=== PATIENT | male | born 1930 | race Caucasian/White ===

== ENCOUNTER 2018-01-13 14:32 | Inpatient (IN) ==
[2018-01-13] MEDS ORDERED: SALINE FLUSH 10ml SYRINGE IVF PRN (15:08)
[2018-01-13] MEDS ORDERED: NS 1,000 ML IV ONE (15:08)
--- OUTSIDE RECORDS SUMMARY | 2018-01-13 15:13 | External Medical Summary | Continuity of Care Document ---
:1930 Author Organization [facility] Allergies Active Description Code Type Severity Reaction Onset Reported/ Identified Relationship Clinical to Patient Status Yes JANE JANE Drug Severe ANGIOEDEM 05/01/2012 Inhibitors Inhib Aller IA itors gy (FAINTING /SWELLING ) Yes simvastatin simva Drug Moderate MUSCLE 09/10/2013 stati Aller WEAKNESS n gy Yes No Known Drug Unknown N/A 11/19/2014 Drug Allergy Aller gy Yes No Known Drug Unknown N/A 11/19/2014 Drug Aller Category gy Allergy Yes No Known Envir Unknown N/A 11/19/2014 Environment onmen Allergy radha Aller gy Yes No Known Food Unknown N/A 11/19/2014 Food Allergy Aller gy Yes JANE benaz Aller Unknown AIRWAY 06/30/2016 Inhibitors epril gy SWELLING HCl Yes No Known No Drug Unknown N/A 03/01/2017 Allergies Known Aller Aller gy gies Yes benazepril Aller Unknown Airway 01/13/2018 gy Obstructi on Medications Medication Packaging Start Date Stop Date Route Dosage Sig Vitamin Tablet 11/19/2014 500 mg C 500 mg tablet take 1 (one) Tablet by Oral route daily Vitamin 11/19/2014 1,000 unit D3 1,000 unit 1 (one) by capsule Oral route daily aspirin 11/19/2014 81 mg 81 mg take 1 tablet,delayed (one) by release Oral route daily Tablet 11/19/2014 100 mg atenolol 100 mg take 1 tablet (one) Tablet by Oral route daily Systane 11/19/2014 0.6 % Balance 0.6 % eye 1 (one) drops daily Refresh 11/19/2014 0.5 % Plus 0.5 % eye 1 (one) drops in a daily dropperette Aspir 06/30/2016 PO 81 mg 81 DAILY 06/30/2016 PO 1 each Caltrate 600 Plus DAILY D3 Tablet Vitamin 02/05/2017 PO 500 mg C DAILY Ultram 02/05/2017 PO 50 mg Q6H 02/05/2017 PO 500 mg Acetaminophen Extra Q6H Strength Vitamin 02/05/2017 PO 1,000 unit D3 DAILY 02/05/2017 PO 500 mg Amoxicillin TID 04/26/2017 PO 50 mcg Synthroid DAILY 06/07/2017 PO 25 mg Tenormin BID Duoneb 06/21/2017 INH 3 ml Q8H 07/25/2017 PO 50 mcg Synthroid DAILY 10/27/2017 PO 50 mcg Synthroid DAILY 11/03/2017 PO 1 each One-A-Day Essential DAILY Adult 01/12/2018 PO 81 mg Aspirin DAILY 01/12/2018 PO 25 mg Tenormin BID Vitamin 01/12/2018 PO 5,000 unit D3 DAILY 01/12/2018 PO 50 mcg Levothyroxine ACB Sodium Tylenol 01/13/2018 PO 325 mg PRN Problems Date Dx Attending Type Code Diagnosis Diagnosed By Coded 05/04/2016 LUIS DIAZ, FORTINO 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, bilateral 05/04/2016 FORTINO SMITH MD J38.4 Edema of larynx Richmond SMITH MD FORTINO C 02/05/2017 Marcel DIAZ, F A41.9 SEPSIS, UNSPECIFIED Janice M ORGANISM 02/05/2017 Marcel DIAZ, F D72.829 ELEVATED WHITE BLOOD Janice M CELL COUNT, UNSPECIFIED 02/05/2017 Marcel DIAZ, F E78.5 HYPERLIPIDEMIA, Janice M UNSPECIFIED 02/05/2017 Marcel DIAZ, F E80.6 OTHER DISORDERS OF Janice M BILIRUBIN METABOLISM 02/05/2017 Marcel DIAZ, F I10 ESSENTIAL (PRIMARY) Janice M HYPERTENSION 02/05/2017 Marcel DIAZ, F 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 02/05/2017 Marcel DIAZ, F I48.91 UNSPECIFIED ATRIAL Janice M FIBRILLATION 02/05/2017 Marcel DIAZ, F K81.0 ACUTE CHOLECYSTITIS Janice M 02/05/2017 Marcel DIAZ, F L21.9 SEBORRHEIC Janice M DERMATITIS, UNSPECIFIED 02/05/2017 Marcel DIAZ, F L57.0 ACTINIC KERATOSIS Janice M 02/05/2017 Marcel DIAZ, F M81.0 AGE-RELATED Janice M OSTEOPOROSIS W/O CURRENT PATHOLOGICAL 02/05/2017 Marcel DIAZ, F 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, UNSPECIFIED 02/05/2017 Marcel DIAZ, A R55 SYNCOPE AND COLLAPSE Janice M 02/05/2017 Marcel DIAZ, F R65.21 SEVERE SEPSIS WITH Janice M SEPTIC SHOCK 02/05/2017 Marcel DIAZ, F R74.0 NONSPEC ELEV OF Janice Villafuerte LEVELS OF TRANSAMNS LACTIC ACID 02/05/2017 Marcel IDAZ, F Z79.82 FPC (CURRENT) Janice Villafuerte USE OF ASPIRIN 02/05/2017 Marcel DIAZ, F 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 04/07/2017 DIEGO MCGRAW MD E78.00 Pure MARILUZ DIAZ, DIEGO An hypercholesterolemia , unspecified 04/07/2017 DIEGO MCGRAW MD E78.5 Hyperlipidemia, MARILUZ DIAZ, DIEGO An unspecified 04/07/2017 DIEGO MCGRAW MD E87.5 Hyperkalemia DIEGO MCGRAW MD 04/07/2017 DIEGO MCGRAW MD G20 Parkinson's disease DIEGO MCGRAW MD 04/07/2017 DIEGO MCGRAW MD I10 Essential (primary) DIEGO MCGRAW MD hypertension 04/07/2017 DIEGO MCGRAW MD L57.0 Actinic keratosis DIEGO MCGRAW MD 04/07/2017 DIEGO MCGRAW MD R79.89 Other specified DIEGO MCGRAW MD abnormal findings of blood chemistry 04/07/2017 DIEGO MCGRAW MD R94.6 Abnormal results of DIEGO MCGRAW MD thyroid function studies 04/07/2017 DIEGO MCGRAW MD Z00.00 Encounter for DIEGO MCGRAW MD general adult medical examination without abnormal findings 04/07/2017 DIEGO MCGRAW MD Z23 Encounter for DIEGO MCGRAW MD immunization 06/20/2017 SELINA LOZOYA J18.9 Pneumonia, SELINA LOZOYA CORE MANAGER unspecified organism A CORE MANAGER 06/20/2017 SELINA LOZOYA R09.02 Hypoxemia SELINA LOZOYA CORE MANAGER A CORE MANAGER Procedures Code [place] [address] LaryngoscopyLUIS MD, ERIC C 06/16/2016 flexible fiberoptic; diagnostic 05864 TYMPANOSTOMY FORTINO SMITH MD 06/16/2016 (REQUIRING INSERTION, VENTILATING TUBE), LOCAL/TOPICAL ANESTHESIA 28815 Office or FORTINO SMITH MD 06/16/2016 other outpatient visit for the evaluation and management of an established patient, which DRAINAGE OF Filipe Silveira MD 02/05/2017 [id number] GALLBLADDER WITH DRAINAGE DEVICE, PERC DRAINAGE OF Filipe Silveira MD 02/05/2017 [id number] COM BILE DUCT WITH DRAIN DEV, PERC END <section xmlns="urn:hl7-org:v3" xmlns:xsi="http://www.eTipping3.org/ 2001/XMLSchema-instance"> <templateId root=" [id number]" /> <templateId root=" [id number]" /> <code codeSystemName=" LOINC" codeSystem="[email or web address]" code="99234-5&quot ; displayName="Results" /> <title>Results</title> &lt ;text> <table> <thead> <tr> <th& gt;Test</th> <th>Result</th> <th>Range </th> </tr> </thead> <tbody> &lt ;tr> <th colspan="10">ARTERIAL BLOOD GAS - 05/01/12 09:37</th> </tr> <tr> <td>ABG BASE EXCESS</td> <td>0.4 meq/L</td> <td>-3.0- 3.0</td> </tr> <tr> <td>ABG BICARBONATE</td> <td>23.4 meq/L</td> <td& gt;23.0-28.0</td> </tr> <tr> <td> ABG PCO2</td> <td>33 mm Hg</td> <td>34 -45</td> </tr> <tr> <td>ABG PH&lt ;/td> <td>7.47 </td> <td>7.35-7.45</td > </tr> <tr> <td>ABG PO2</td> <td>96 mm Hg</td> <td>75-100</td> & lt;/tr> <tr> <td>ABG O2 SATURATION</td> <td>97 %</td> <td>93-100</td> </tr> <tr> <th colspan="10"> ARTERIAL BLOOD GAS - 05/01/12 09:37</th> </tr> <tr& gt; <td>ABG BASE EXCESS</td> <td>0.4 meq/L& lt;/td> <td>-3.0-3.0</td> </tr> <tr> <td>ABG BICARBONATE</td> <td>23.4meq/L</ td> <td>23.0-28.0</td> </tr> <tr& gt; <td>ABG PCO2</td> <td>33 mm Hg</td> <td>34-45</td> </tr> <tr> &lt ;td>ABG PH</td> <td>7.47 </td> <td> 7.35-7.45</td> </tr> <tr><td>ABG PO2</ td> <td>96 mm Hg</td> <td>75-100</td& gt; </tr> <tr> <td>ABG O2 SATURATION&lt ;/td> <td>97 %</td> <td>93-100&lt ;/td> </tr> <tr> <th colspan="10& quot;>PROTHROMBIN TIME WITH INR - 05/01/12 09:43</th> </tr> <tr> <td>INTERNATIONAL NORMAL RATIO</td> < td>1.1 </td> <td>0.9-1.1</td> </tr> <tr> <td>PROTHROMBIN TIME</td> <td >11.4 sec</td> <td>9.3-12.2</td> </tr&gt ; <tr> <th colspan="10">PARTIAL THROMBOPLASTIN TIME - 05/01/12 09:43</th> </tr> <tr > <td>PARTIAL THROMBOPLASTIN TIME</td> <td>30 sec</td> <td>24-36</td> </tr> &lt ;tr> <th colspan="10">FIBRINOGEN - 05/01/12 09:43&lt ;/th> </tr> <tr> <td>FIBRINOGEN</ td> <td>302 mg/dL</td> <td>200-400</td > </tr> <tr> <th colspan="10"> CBC W/DIFF - 05/01/12 09:43</th> </tr> <tr> <td>BASOPHIL #</td> <td>0.0 k/cumm</td> <td>0.0-0.2</td> </tr> <tr> <td>BASOPHIL %</td> <td>1 %</ td> <td>0-1</td> </tr> <tr> <td>EOSINOPHIL #</td> <td>0.1 k/cumm</td> <td>0.1-0.5</td> </tr> <tr> <td>EOSINOPHIL %</td> <td>2 %</ td> <td>2-4</td> </tr> <tr> <td>GRANULOCYTE #</td> <td>3.3 k/cumm</td& gt; <td>2.0-9.0</td> </tr> <tr> <td>GRANULOCYTE %</td> <td>66 %&lt ;/td> <td>50-75</td> </tr> <tr&gt ; <td>LYMPHOCYTE #</td> <td>1.1 k/cumm</ td> <td>1.0-4.0</td> </tr> <tr> <td>LYMPHOCYTE %</td> <td>22 %&lt ;/td> <td>20-30</td> </tr> <tr> <td>MEAN CELL HGB</td> <td>34.0pg</td> <td>27.0-33.0</td> </tr> <tr> <td>MEAN CELL HGB CONCENTRATION</td> <td>34.9 g/dl</td> <td>32.0-36.0</td> </tr> <tr> <td>MEAN CELL VOLUME</td> <td> 97.4 fl</td> <td>80.0-100.0</td> </tr> <tr> <td>MONOCYTE #</td> <td> 0.5 k/cumm</td> <td>0.1-1.0</td> </tr> <tr> <td>MONOCYTE %</td> < td>10 %</td> <td>4-6</td> </tr& gt; <tr> <td>RED BLOOD CELL</td> < td>4.02 m/cumm</td> <td>4.00-6.00</td> < /tr> <tr> <td>RED CELL DISTRIBUTION WIDTH</td& gt; <td>13.1 %</td> <td>11.0-15.6&lt ;/td> </tr> <tr> <td>WHITE BLOOD CELL</td> <td>5.1 k/cumm</td> <td>5.0- 10.0</td> </tr> <tr> <td> HEMOGLOBIN</td> <td>13.7 gm/dL</td> <td& gt;14.0-18.0</td> </tr> <tr> <td> HEMATOCRIT</td> <td>39.2 %</td> < td>40.0-54.0</td> </tr> <tr> <td& gt;PLATELET COUNT</td> <td>194 k/cumm</td> & lt;td>150-450</td> </tr> <tr> < th colspan="10">METABOLIC PANEL, BASIC - 05/01/12 09:43</th> </tr> <tr> <td>POTASSIUM</td>&lt ;td>4.1 mmol/L</td> <td>3.5-5.3</td> </ tr> <tr> <td>EST GFR (MDRD)</td> & lt;td>> 60 mL/min</td> <td>> 59</td> </tr> <tr> <td>ANION GAP</td> <td>6 mmol/L</td> <td>5-15</td> & lt;/tr> <tr> <td>GLUCOSE</td> < td>95 mg/dL</td> <td>70-99</td> </tr&gt ; <tr> <td>CALCIUM</td> <td> 8.7 mg/dL</td> <td>8.5-10.1</td> </tr> <tr> <td>BLOOD UREA NITROGEN</td> &lt ;td>17 mg/dL</td> <td>7-20</td> </tr&gt ; <tr> <td>CREATININE</td> <td> 0.8 mg/dL</td> <td>0.8-1.3</td> </tr> <tr> <td>SODIUM</td> <td>131 mmol/L</td> <td>135-148</td> </tr> <tr> <td>CHLORIDE</td> <td>97 mmol/L</td > <td>98-110</td> </tr> <tr> <td>CARBON DIOXIDE</td> <td>28 mmol/L</td > <td>21-32</td> </tr> <tr> <th colspan="10">LIPID PANEL - 05/01/12 09:43</th&gt ; </tr> <tr> <td>CHOLESTEROL/HDL RATIO& lt;/td> <td>2.0 </td> <td> < 5.0& lt;/td> </tr> <tr> <td>LDL CHOLESTEROL</td> <td>59 mg/dL</td> <td&gt ;< 100</td> </tr> <tr> <td&gt ;VLDL CHOLESTEROL</td> <td>9 mg/dL</td> <td> < 30</td> </tr><tr> <td> TRIGLYCERIDES</td> <td>44 mg/dL</td> <td>& lt; 150</td> </tr> <tr> <td> CHOLESTEROL</td> <td>139 mg/dL</td> <td& gt;< 200</td> </tr> <tr> <td> HDL CHOLESTEROL</td> <td>71mg/dL</td> <td >> 39</td> </tr> <tr> <th colspan="10">HEMOGLOBIN A1C - 05/01/12 09:43</th> < /tr> <tr> <td>HEMOGLOBIN A1C</td> &lt ;td>5.9 %</td> <td>< 5.7</td> </tr> <tr> <th colspan="10">MRSA SURVEILLANCE SCREEN - 05/01/12 09:43</th> </tr> <tr> <td>Uncategorized</td> <td> </td> <td /> </tr> <tr> <th colspan ="10">PROTHROMBIN TIME WITH INR - 05/01/12 09:43</th> </tr> <tr> <td>INTERNATIONAL NORMAL RATIO</ td> <td>1.1 </td> <td>0.9-1.1</td> </tr> <tr> <td>PROTHROMBIN TIME</td ><td>11.4 sec</td> <td>9.3-12.2</td> </tr> <tr> <th colspan="10">PARTIAL THROMBOPLASTIN TIME - 05/01/12 09:43</th> </tr> <tr > <td>PARTIAL THROMBOPLASTIN TIME</td> <td>30 sec</td> <td>24-36</td> </tr> &lt ;tr> <th colspan="10">FIBRINOGEN - 05/01/12 09:43&lt ;/th> </tr> <tr> <td>FIBRINOGEN</ td> <td>302 mg/dL</td> <td>200-400</td > </tr> <tr> <th colspan="10" >CBC W/DIFF - 05/01/12 09:43</th> </tr> <tr> <td>BASOPHIL #</td> <td>0.0 k/cumm</td> <td>0.0-0.2</td> </tr> <tr> <td>BASOPHIL %</td> <td>1 %</td> <td>0-1</td> </tr> <tr> & lt;td>EOSINOPHIL #</td> <td>0.1 k/cumm</td> <td >0.1-0.5</td> </tr> <tr> <td> EOSINOPHIL %</td> <td>2 %</td> <td>2-4</td> </tr> <tr> < td>GRANULOCYTE #</td> <td>3.3 k/cumm</td> <td>2.0-9.0</td> </tr> <tr> &lt ;td>GRANULOCYTE %</td> <td>66 %</td& gt; <td>50-75</td> </tr> <tr> <td>LYMPHOCYTE #</td> <td>1.1 k/cumm</td> <td>1.0-4.0</td> </tr><tr> <td >LYMPHOCYTE %</td> <td>22 %</td> <td>20-30</td> </tr> <tr> <td>MEANCELL HGB</td> <td>34.0 pg</td> <td>27.0-33.0</td> </tr> <tr> & lt;td>MEAN CELL HGB CONCENTRATION</td><td>34.9 g/dl</td> <td>32.0-36.0</td> </tr> <tr> <td>MEAN CELL VOLUME</td> <td>97.4 fl</td&gt ;<td>80.0-100.0</td> </tr> <tr> & lt;td>MONOCYTE #</td> <td>0.5 k/cumm</td> <td>0.1-1.0</td> </tr> <tr> &lt ;td>MONOCYTE %</td> <td>10 %</td> <td>4-6</td> </tr> <tr> <td>RED BLOOD CELL</td> <td>4.02 m/cumm</td> <td>4.00-6.00</td> </tr> <tr> <td>RED CELL DISTRIBUTION WIDTH</td> <td> 13.1 %</td> <td>11.0-15.6</td> </tr > <tr> <td>WHITE BLOOD CELL</td> & lt;td>5.1 k/cumm</td> <td>5.0-10.0</td> &lt ;/tr> <tr> <td>HEMOGLOBIN</td> &lt ;td>13.7 gm/dL</td> <td>14.0-18.0</td> < /tr> <tr> <td>HEMATOCRIT</td> < td>39.2 %</td> <td>40.0-54.0</td> & lt;/tr> <tr> <td>PLATELET COUNT</td> <td>194 k/cumm</td> <td>150-450</td> </tr& gt; <tr> <th colspan="10">METABOLIC PANEL , BASIC - 05/01/12 09:43</th> </tr> <tr> < td>POTASSIUM</td> <td>4.1 mmol/L</td> &lt ;td>3.5-5.3</td> </tr> <tr> <td& gt;EST GFR (MDRD)</td> <td>> 60 mL/min</td> <td>> 59</td> </tr> <tr> & lt;td>ANION GAP</td> <td>6 mmol/L</td> < td>5-15</td> </tr> <tr> <td> GLUCOSE</td> <td>95 mg/dL</td> <td>70- 99</td> </tr> <tr> <td>CALCIUM&lt ;/td> <td>8.7 mg/dL</td> <td>8.5-10.1</td& gt; </tr> <tr> <td>BLOOD UREA NITROGEN& lt;/td> <td>17 mg/dL</td> <td>7-20</td > </tr> <tr> <td>CREATININE</td> <td>0.8 mg/dL</td> <td>0.8-1.3</td> </tr> <tr> <td>SODIUM</td> & lt;td>131 mmol/L</td> <td>135-148</td> </ tr> <tr> <td>CHLORIDE</td> <td& gt;97 mmol/L</td> <td>98-110</td> </tr> <tr> <td>CARBON DIOXIDE</td> <td& gt;28 mmol/L</td> <td>21-32</td> </tr> <tr> <th colspan="10">LIPID PANEL - 09:43</th> </tr> <tr> <td> CHOLESTEROL/HDL RATIO</td> <td>2.0 </td> &lt ;td> < 5.0</td> </tr> <tr> & lt;td>LDL CHOLESTEROL</td> <td>59 mg/dL</td> <td>< 100</td> </tr> <tr> < td>VLDL CHOLESTEROL</td> <td>9 mg/dL</td> <td>< 30</td> </tr> <tr> <td>TRIGLYCERIDES</td> <td>44 mg/dL</td> <td>< 150</td> </tr> <tr> <td>CHOLESTEROL</td> <td>139 mg/dL</td> & lt;td>< 200</td> </tr> <tr> & lt;td>HDL CHOLESTEROL</td> <td>71 mg/dL</td> <td>> 39</td> </tr> <tr> <th colspan="10">HEMOGLOBIN A1C - 05/01/12 09:43</th&gt ; </tr> <tr> <td>HEMOGLOBIN A1C</td& gt; <td>5.9 %</td> <td>< 5.7& lt;/td> </tr> <tr> <th colspan="10 ">MRSA SURVEILLANCE SCREEN - 05/01/12 09:43</th> </tr&gt ; <tr> <td>Uncategorized</td> <td& gt; </td> <td /> </tr> <tr>< th colspan="10">URINALYSIS, ROUTINE - 05/01/12 10:05</th> </tr> <tr> <td>UA LEUKOCYTE ESTERASE DIPSTICK</td> <td>NEGATIVE </td> <td> NEGATIVE</td> </tr> <tr> <td>UA NITRITE DIPSTICK</td> <td>NEGATIVE </td> <td> NEGATIVE</td> </tr> <tr> <td>UA PROTEIN DIPSTICK</td> <td>NEGATIVE </td> &lt ;td>NEGATIVE</td> </tr> <tr> <td& gt;UA GLUCOSE DIPSTICK</td> <td>NEGATIVE </td> <td>NEGATIVE</td> </tr> <tr> <td>UA KETONE DIPSTICK</td> <td>NEGATIVE </td> <td>NEGATIVE</td> </tr> <tr> <td>UA UROBILINOGEN DIPSTICK</td> <td>NORMAL & lt;/td> <td>NORMAL</td> </tr> <tr> <td>UA BILIRUBIN DIPSTICK</td> <td> NEGATIVE </td> <td>NEGATIVE</td> </tr> <tr> <td>UA BLOOD DIPSTICK</td> < td>NEGATIVE </td> <td>NEGATIVE</td> </tr > <tr> <td>UA VOLUME FOR EXAM</td><td&gt ;12.0 mL</td> <td>(12mL STD)</td> </tr> <tr> <td>UA SPECIFIC GRAVITY</td> & lt;td>1.014 </td> <td>1.015-1.025</td> </tr> <tr> <td>UR PH</td> <td>7.0 &lt ;/td> <td>5.0-7.0</td> </tr> <tr> <th colspan="10">URINALYSIS, ROUTINE - 05/01/12 10:05& lt;/th> </tr> <tr> <td>UA LEUKOCYTE ESTERASE DIPSTICK</td> <td>NEGATIVE </td> & lt;td>NEGATIVE</td> </tr> <tr> <td& gt;UA NITRITE DIPSTICK</td> <td>NEGATIVE </td> <td>NEGATIVE</td> </tr> <tr> <td>UA PROTEIN DIPSTICK</td> <td>NEGATIVE </td&gt ; <td>NEGATIVE</td> </tr> <tr> <td>UA GLUCOSE DIPSTICK</td> <td>NEGATIVE </td&gt ; <td>NEGATIVE</td> </tr> <tr> <td>UA KETONE DIPSTICK</td> <td>NEGATIVE < /td> <td>NEGATIVE</td> </tr> <tr> <td>UA UROBILINOGEN DIPSTICK</td> <td> NORMAL </td> <td>NORMAL</td> </tr> <tr> <td>UA BILIRUBIN DIPSTICK</td> < td>NEGATIVE </td> <td>NEGATIVE</td> </tr > <tr> <td>UA BLOOD DIPSTICK</td> <td>NEGATIVE </td><td>NEGATIVE</td> </tr> <tr> <td>UA VOLUME FOR EXAM</td> < td>12.0 mL</td> <td>(12mL STD)</td></tr> <tr> <td>UA SPECIFIC GRAVITY</td> < td>1.014 </td> <td>1.015-1.025</td> </tr > <tr> <td>UR PH</td> <td>7.0 </ td> <td>5.0-7.0</td> </tr> <tr&gt ; <th colspan="10">SURGERY PROFILE BEDSIDE - 05/02/12 07:49</th> </tr> <tr> <td> POTASSIUM</td> <td>3.5 mmol/L</td> <td&gt ;3.5-5.3</td> </tr> <tr> <td>ABG BASE EXCESS</td> <td>-1.0 meq/L</td> <td& gt;-3.0-3.0</td> </tr> <tr> <td> ABG BICARBONATE</td> <td>24.0 meq/L</td> &lt ;td>23.0-28.0</td> </tr> <tr> <td >METHOD</td> <td>Bedside </td> <td /& gt; </tr> <tr> <td>ABG PCO2</td> <td>38 mm Hg</td> <td>34-45</td></ tr> <tr> <td>ABG PH</td> <td&gt ;7.41 </td> <td>7.35-7.45</td> </tr> <tr> <td>ABG PO2</td> <td>245 mm Hg</td> <td>75-100</td> </tr> &lt ;tr> <td>ABG O2 SATURATION</td> <td>100 & amp;#37;</td> <td>93-100</td> </tr> <tr> <td>METHOD</td> <td>Bedside </td& gt; <td /> </tr> <tr> <td& gt;METHOD</td> <td>Bedside </td> <td /&gt ; </tr> <tr> <td>GLUCOSE</td> <td>94 mg/dL</td> <td>70-99</td> &lt ;/tr> <tr> <td>HEMOGLOBIN</td> &lt ;td>10.5 gm/dL</td> <td>14.0-18.0</td> < /tr> <tr> <td>HEMATOCRIT</td> < td>31.0 %</td> <td>40.0-54.0</td> & lt;/tr> <tr> <td>SODIUM</td> < td>134 mmol/L</td> <td>135-148</td> </tr > <tr> <td>CARBON DIOXIDE</td> &lt ;td>25 mmol/L</td> <td>21-32</td> </tr&gt ; <tr> <td>CALCIUM IONIZED</td> < td>4.6 mg/dL</td> <td>4.5-5.3</td> </tr& gt; <tr> <th colspan="10">SURGERY PROFILE BEDSIDE - 05/02/12 07:49</th> </tr> <tr> <td>POTASSIUM</td> <td>3.5 mmol/L</td> <td>3.5-5.3</td> </tr> <tr> <td>ABG BASE EXCESS</td> <td>-1.0 meq/L</td> <td>-3.0-3.0</td> </tr> <tr> <td>ABG BICARBONATE</td> <td>24.0 meq/L</td& gt; <td>23.0-28.0</td> </tr> <tr&gt ; <td>METHOD</td> <td>Bedside </td> <td /> </tr> <tr> <td>ABG PCO2</td> <td>38 mmHg</td> <td>34-45& lt;/td> </tr> <tr> <td>ABG PH</td > <td>7.41 </td> <td>7.35-7.45</td&gt ; </tr> <tr> <td>ABG PO2</td> <td>245 mm Hg</td> <td>75-100</td> & lt;/tr> <tr> <td>ABG O2 SATURATION</td> <td>100 %</td> <td>93-100</td> </tr> <tr> <td>METHOD</td> <td>Bedside </td> <td /> </tr> <tr> <td>METHOD</td> <td>Bedside & lt;/td> <td /> </tr> <tr> &lt ;td>GLUCOSE</td> <td>94 mg/dL</td> <td>70- 99</td> </tr> <tr> <td>HEMOGLOBIN </td> <td>10.5 gm/dL</td> <td>14.0- 18.0</td> </tr> <tr> <td> HEMATOCRIT</td> <td>31.0 %</td> < td>40.0-54.0</td> </tr> <tr> <td& gt;SODIUM</td> <td>134 mmol/L</td> <td&gt ;135-148</td> </tr> <tr> <td> CARBON DIOXIDE</td> <td>25 mmol/L</td> < td>21-32</td> </tr> <tr> <td>CALCIUM IONIZED</td> <td>4.6 mg/dL</td> <td> 4.5-5.3</td> </tr> <tr> <th colspan= "10">SURGERY PROFILE BEDSIDE - 05/02/12 09:09</th> &lt ;/tr> <tr> <td>POTASSIUM</td> < td>3.7 mmol/L</td> <td>3.5-5.3</td> </tr& gt; <tr> <td>ABG BASE EXCESS</td> &lt ;td>1.0 meq/L</td> <td>-3.0-3.0</td> </ tr> <tr> <td>ABG BICARBONATE</td> < td>27.0 meq/L</td> <td>23.0-28.0</td> </ tr> <tr> <td>METHOD</td> <td> Bedside </td> <td /> </tr> <tr> & lt;td>ABG PCO2</td> <td>52 mm Hg</td> &lt ;td>34-45</td> </tr> <tr> <td> ABG PH</td> <td>7.33 </td> <td>7.35- 7.45</td> </tr> <tr> <td>ABG PO2& lt;/td> <td>545 mm Hg</td> <td>75-100< /td> </tr> <tr> <td>ABG O2 SATURATION</td> <td>100 %</td> < td>93-100</td> </tr> <tr> <td> METHOD</td> <td>Bedside </td> <td /> </tr> <tr> <td>METHOD</td> <td>Bedside </td> <td /> </tr> <tr> <td>GLUCOSE</td> <td>102 mg/dL </td> <td>70-99</td> </tr> <tr > <td>HEMOGLOBIN</td> <td>9.2 gm/dL</ td> <td>14.0-18.0</td> </tr> <tr& gt; <td>HEMATOCRIT</td> <td>27.0 %& lt;/td> <td>40.0-54.0</td> </tr> &lt ;tr> <td>SODIUM</td> <td>133 mmol/L</ td> <td>135-148</td> </tr> <tr&gt ;<td>CARBON DIOXIDE</td> <td>29 mmol/L</td> <td>21-32</td> </tr> <tr> <td>CALCIUM IONIZED</td> <td>4.5 mg/dL</td> & lt;td>4.5-5.3</td> </tr> <tr> < th colspan="10">SURGERY PROFILE BEDSIDE - 05/02/12 09:09</th&gt ; </tr> <tr> <td>POTASSIUM</td> <td>3.7 mmol/L</td> <td>3.5-5.3</td> </tr> <tr><td>ABG BASE EXCESS</td> <td>1.0 meq/L</td> <td>-3.0-3.0</td> & lt;/tr> <tr> <td>ABG BICARBONATE</td> <td>27.0 meq/L</td> <td>23.0-28.0</td> & lt;/tr> <tr> <td>METHOD</td> <td> Bedside </td> <td /> </tr> <tr> <td>ABG PCO2</td> <td>52 mm Hg</td> <td>34-45</td> </tr> <tr> &lt ;td>ABG PH</td> <td>7.33 </td> <td> 7.35-7.45</td> </tr> <tr> <td> ABG PO2</td> <td>545 mm Hg</td> <td>75 -100</td> </tr> <tr> <td>ABG O2 SATURATION</td> <td>100 %</td> < td>93-100</td> </tr> <tr> <td> METHOD</td> <td>Bedside </td> <td /> </tr> <tr> <td>METHOD</td> <td& gt;Bedside </td> <td /> </tr> <tr&gt ; <td>GLUCOSE</td> <td>102 mg/dL</td> <td>70-99</td> </tr> <tr> <td>HEMOGLOBIN</td> <td>9.2 gm/dL</td> <td>14.0-18.0</td> </tr> <tr> & lt;td>HEMATOCRIT</td> <td>27.0 %</td> <td>40.0-54.0</td> </tr> <tr> &lt ;td>SODIUM</td> <td>133 mmol/L</td> < td>135-148</td> </tr> <tr> <td&gt ;CARBON DIOXIDE</td><td>29 mmol/L</td> <td>21- 32</td> </tr> <tr> <td>CALCIUM IONIZED</td> <td>4.5 mg/dL</td> <td> 4.5-5.3</td> </tr> <tr> <th colspan= "10">SURGERY PROFILE BEDSIDE - 05/02/12 09:34</th> &lt ;/tr> <tr> <td>POTASSIUM</td> <td> 4.3 mmol/L</td> <td>3.5-5.3</td> </tr> <tr> <td>ABG BASE EXCESS</td> <td>-1.0 meq/L</td> <td>-3.0-3.0</td> </tr> <tr> <td>ABG BICARBONATE</td> <td> 24.0 meq/L</td> <td>23.0-28.0</td> </tr> <tr> <td>METHOD</td> <td>Bedside &lt ;/td> <td /> </tr> <tr> &lt ;td>ABG PCO2</td> <td>39 mm Hg</td> < td>34-45</td> </tr> <tr> <td> ABG PH</td> <td>7.40 </td> <td>7.35- 7.45</td> </tr> <tr> <td>ABG PO2& lt;/td> <td>307 mm Hg</td> <td>75-100< /td> </tr> <tr> <td>ABG O2 SATURATION</td> <td>100 %</td> <td >93-100</td> </tr> <tr> <td> METHOD</td> <td>Bedside </td> <td /> &lt ;/tr> <tr> <td>METHOD</td> <td& gt;Bedside </td> <td /> </tr> <tr&gt ; <td>GLUCOSE</td> <td>171 mg/dL</td> <td>70-99</td> </tr> <tr> & lt;td>HEMOGLOBIN</td> <td>6.8 gm/dL</td> <td>14.0-18.0</td> </tr> <tr> &lt ;td>HEMATOCRIT</td> <td>20.0 %</td> <td>40.0-54.0</td> </tr> <tr> <td>SODIUM</td> <td>132 mmol/L</td> <td>135-148</td> </tr> <tr> < td>CARBON DIOXIDE</td> <td>25 mmol/L</td> <td>21-32</td> </tr> <tr> < td>CALCIUM IONIZED</td> <td>3.4 mg/dL</td> <td>4.5-5.3</td> </tr> <tr> & lt;th colspan="10">SURGERY PROFILE BEDSIDE - 05/02/12 09:34</th& gt; </tr> <tr> <td>POTASSIUM</td&gt ; <td>4.3 mmol/L</td> <td>3.5-5.3</td&gt ; </tr> <tr> <td>ABG BASE EXCESS</td > <td>-1.0 meq/L</td> <td>-3.0-3.0</td > </tr> <tr> <td>ABG BICARBONATE< /td> <td>24.0 meq/L</td> <td>23.0-28.0&lt ;/td> </tr> <tr> <td>METHOD</td& gt; <td>Bedside </td> <td /> </tr& gt; <tr> <td>ABG PCO2</td> <td> 39 mm Hg</td> <td>34-45</td> </tr> <tr> <td>ABG PH</td> <td>7.40 </ td> <td>7.35-7.45</td> </tr> <tr& gt; <td>ABG PO2</td> <td>307 mm Hg</td> <td>75-100</td> </tr> <tr> <td>ABG O2 SATURATION</td> <td>100 %</td > <td>93-100</td> </tr> <tr> <td>METHOD</td> <td>Bedside </td> <td /> </tr> <tr> <td>METHOD </td> <td>Bedside </td> <td /> </tr> <tr> <td>GLUCOSE</td> &lt ;td>171 mg/dL</td> <td>70-99</td> </tr& gt; <tr> <td>HEMOGLOBIN</td> <td& gt;6.8 gm/dL</td> <td>14.0-18.0</td> </tr& gt; <tr> <td>HEMATOCRIT</td> <td& gt;20.0 %</td> <td>40.0-54.0</td> < /tr> <tr> <td>SODIUM</td> <td& gt;132 mmol/L</td> <td>135-148</td> </tr&gt ; <tr> <td>CARBON DIOXIDE</td> <td >25 mmol/L</td> <td>21-32</td> </tr> <tr> <td>CALCIUM IONIZED</td> <td&gt ;3.4 mg/dL</td> <td>4.5-5.3</td> </tr> <tr> <th colspan="10">SURGERY PROFILE BEDSIDE - 05/02/12 10:00</th> </tr> <tr> <td>POTASSIUM</td> <td>3.7 mmol/L</td> <td>3.5-5.3</td> </tr> <tr> <td>ABG BASE EXCESS</td> <td>-1.0 meq/L</td> <td>-3.0-3.0</td> </tr> <tr> <td>ABG BICARBONATE</td> <td>24.7 meq/L</td& gt; <td>23.0-28.0</td> </tr> <tr&gt ; <td>METHOD</td> <td>Bedside </td> <td /> </tr> <tr> <td>ABG PCO2</td> <td>44 mm Hg</td> <td>34-45</td& gt; </tr> <tr> <td>ABG PH</td> <td>7.36 </td> <td>7.35-7.45</td> </tr> <tr> <td>ABG PO2</td> < td>273 mm Hg</td> <td>75-100</td> </tr> <tr> <td>ABG O2 SATURATION</td> <td> 100 %</td> <td>93-100</td></tr> <tr> <td>METHOD</td> <td>Bedside </ td> <td /> </tr> <tr> < td>METHOD</td> <td>Bedside </td> <td /& gt; </tr> <tr> <td>GLUCOSE</td> <td>122 mg/dL</td> <td>70-99</td> & lt;/tr> <tr> <td>HEMOGLOBIN</td> & lt;td>7.1 gm/dL</td> <td>14.0-18.0</td> &lt ;/tr> <tr> <td>HEMATOCRIT</td> &lt ;td>21.0 %</td> <td>40.0-54.0</td> </tr> <tr> <td>SODIUM</td> < td>133 mmol/L</td> <td>135-148</td> </tr > <tr> <td>CARBON DIOXIDE</td> <td >26 mmol/L</td> <td>21-32</td> </tr> <tr> <td>CALCIUM IONIZED</td> <td& gt;4.0 mg/dL</td> <td>4.5-5.3</td> </tr> <tr> <th colspan="10">SURGERY PROFILE BEDSIDE - 05/02/12 10:00</th> </tr> <tr> <td >POTASSIUM</td> <td>3.7 mmol/L</td> < td>3.5-5.3</td> </tr> <tr> <td> ABG BASE EXCESS</td> <td>-1.0 meq/L</td> &lt ;td>-3.0-3.0</td> </tr> <tr> <td& gt;ABGBICARBONATE</td> <td>24.7 meq/L</td> & lt;td>23.0-28.0</td> </tr> <tr> < td>METHOD</td> <td>Bedside </td> <td / > </tr> <tr> <td>ABG PCO2</td&gt ; <td>44 mm Hg</td> <td>34-45</td> </tr> <tr> <td>ABG PH</td> <td>7.36 </td> <td>7.35-7.45</td> </tr&gt ; <tr> <td>ABG PO2</td> <td> 273 mm Hg</td> <td>75-100</td> </tr> <tr> <td>ABG O2 SATURATION</td> <td& gt;100 %</td> <td>93-100</td> </tr& gt; <tr> <td>METHOD</td> <td> Bedside </td> <td /> </tr> <tr> <td>METHOD</td> <td>Bedside </td> & lt;td /> </tr> <tr> <td>GLUCOSE</ td><td>122 mg/dL</td> <td>70-99</td> </tr> <tr> <td>HEMOGLOBIN</td> <td>7.1 gm/dL</td> <td>14.0-18.0</td> & lt;/tr> <tr> <td>HEMATOCRIT</td> & lt;td>21.0 %</td> <td>40.0-54.0</td> </tr> <tr> <td>SODIUM</td> & lt;td>133 mmol/L</td> <td>135-148</td> </tr > <tr> <td>CARBON DIOXIDE</td> &lt ;td>26 mmol/L</td> <td>21-32</td> </tr& gt; <tr> <td>CALCIUM IONIZED</td> &lt ;td>4.0 mg/dL</td> <td>4.5-5.3</td> </tr > <tr> <th colspan="10">SURGERY PROFILE BEDSIDE - 05/02/12 10:30</th> </tr> <tr> <td>POTASSIUM</td> <td>3.7 mmol/L</td&gt ; <td>3.5-5.3</td> </tr> <tr> <td>ABG BASEEXCESS</td> <td>1.0 meq/L</td> <td>-3.0-3.0</td> </tr> <tr> <td>ABG BICARBONATE</td> <td>24.8 meq/L</td> <td>23.0-28.0</td> </tr> <tr> <td>METHOD</td> <td>Bedside </td> & lt;td /> </tr> <tr> <td>ABG PCO2< /td> <td>37 mm Hg</td> <td>34-45</td& gt; </tr> <tr> <td>ABG PH</td> <td>7.44 </td> <td>7.35-7.45</td> </tr> <tr> <td>ABG PO2</td> <td>261 mm Hg</td> <td>75-100</td> </ tr> <tr> <td>ABGO2 SATURATION</td> <td>100 %</td> <td>93-100</td> </tr> <tr> <td>METHOD</td> & lt;td>Bedside </td> <td /> </tr> &lt ;tr> <td>METHOD</td> <td>Bedside </td& gt; <td /> </tr> <tr> <td& gt;GLUCOSE</td> <td>78 mg/dL</td> <td> 70-99</td> </tr> <tr> <td> HEMOGLOBIN</td> <td>7.1 gm/dL</td> <td> 14.0-18.0</td> </tr> <tr> <td> HEMATOCRIT</td> <td>21.0 %</td> <td >40.0-54.0</td> </tr> <tr> <td&gt ;SODIUM</td> <td>134 mmol/L</td> <td> 135-148</td> </tr> <tr> <td> CARBON DIOXIDE</td> <td>26 mmol/L</td> < td>21-32</td> </tr> <tr> <td> CALCIUM IONIZED</td> <td>4.1 mg/dL</td> < td>4.5-5.3</td> </tr> <tr> <th colspan="10">SURGERY PROFILEBEDSIDE - 05/02/12 10:30</th> </tr> <tr> <td>POTASSIUM</td> <td>3.7 mmol/L</td> <td>3.5-5.3</td> </tr> <tr> <td>ABG BASE EXCESS</td> <td>1.0 meq/L</td> <td>-3.0-3.0</td> </tr> <tr> <td>ABG BICARBONATE</td& gt; <td>24.8 meq/L</td> <td>23.0-28.0</td > </tr> <tr> <td>METHOD</td> <td>Bedside </td> <td /> </tr> <tr> <td>ABG PCO2</td> <td>37 mm Hg</td> <td>34-45</td> </tr> <tr > <td>ABG PH</td> <td>7.44 </td> <td>7.35-7.45</td> </tr> <tr> <td>ABG PO2</td> <td>261 mm Hg</td> <td>75-100</td> </tr> <tr> <td& gt;ABG O2 SATURATION</td> <td>100 %</td> <td>93-100</td> </tr> <tr> < td>METHOD</td> <td>Bedside </td> <td / ></tr> <tr> <td>METHOD</td> <td>Bedside </td> <td /> </tr> & lt;tr> <td>GLUCOSE</td> <td>78 mg/dL</ td> <td>70-99</td> </tr> <tr> <td>HEMOGLOBIN</td> <td>7.1 gm/dL</td> < td>14.0-18.0</td> </tr> <tr> <td& gt;HEMATOCRIT</td> <td>21.0 %</td> & lt;td>40.0-54.0</td></tr> <tr> <td> SODIUM</td> <td>134 mmol/L</td> <td> 135-148</td> </tr> <tr> <td> CARBON DIOXIDE</td> <td>26 mmol/L</td> < td>21-32</td> </tr> <tr> <td> CALCIUM IONIZED</td> <td>4.1 mg/dL</td> < td>4.5-5.3</td> </tr> <tr> <th colspan="10">HGB HCT - 05/02/12 11:00</th> </tr& gt; <tr> <td>MEAN CELL VOLUME</td> <td& gt;95.4 fl</td> <td>80.0-100.0</td> </tr> <tr> <td>HEMOGLOBIN</td> <td> 8.5 gm/dL</td> <td>14.0-18.0</td> </tr> <tr> <td>HEMATOCRIT</td> <td>25.1 &amp ;#37;</td> <td>40.0-54.0</td> </tr> <tr> <th colspan="10">PLATELET COUNT - 05/02/12 11:00& lt;/th> </tr> <tr> <td>PLATELET COUNT</ td> <td>104 k/cumm</td> <td>150-450</td& gt; </tr> <tr> <th colspan="10"& gt;PROTHROMBIN TIME WITH INR - 05/02/12 11:00</th> </tr> <tr> <td>INTERNATIONAL NORMAL RATIO</td> <td>2.0 </td> <td>0.9-1.1</td> </tr> <tr> <td>PROTHROMBINTIME</td> <td& gt;21.1 sec</td> <td>9.3-12.2</td></tr> <tr> <th colspan="10">FIBRINOGEN - 05/02/12 11:00 </th> </tr> <tr> <td>FIBRINOGEN& lt;/td> <td>165 mg/dL</td> <td>200-400&lt ;/td> </tr> <tr> <th colspan="10& quot;>HGB HCT - 05/02/12 11:00</th> </tr> <tr&gt ; <td>MEAN CELL VOLUME</td> <td>95.4 fl</ td> <td>80.0-100.0</td> </tr> <tr > <td>HEMOGLOBIN</td> <td>8.5 gm/dL</ td> <td>14.0-18.0</td> </tr> <tr&gt ; <td>HEMATOCRIT</td> <td>25.1 %< /td> <td>40.0-54.0</td> </tr> <tr > <th colspan="10">PLATELET COUNT - 05/02/12 11:00</th > </tr> <tr> <td>PLATELET COUNT</td > <td>104 k/cumm</td> <td>150-450</td& gt; </tr> <tr> <th colspan="10"& gt;PROTHROMBIN TIME WITH INR - 05/02/12 11:00</th> </tr> <tr> <td>INTERNATIONAL NORMAL RATIO</td> <td>2.0 </td> <td>0.9-1.1</td> </tr& gt; <tr> <td>PROTHROMBIN TIME</td> & lt;td>21.1 sec</td> <td>9.3-12.2</td> </tr& gt; <tr> <th colspan="10">FIBRINOGEN - 02/07 11:00</th> </tr> <tr> <td> FIBRINOGEN</td><td>165 mg/dL</td> <td>200-400& lt;/td> </tr> <tr> <th colspan="10 ">SURGERY PROFILE BEDSIDE - 05/02/12 11:02</th> </tr> <tr> <td>POTASSIUM</td> <td>3.4 mmol/L</td> <td>3.5-5.3</td> </tr> <tr> <td>ABG BASE EXCESS</td> <td> 1.0 meq/L</td> <td>-3.0-3.0</td> </tr> <tr> <td>ABG BICARBONATE</td> <td> 25.3 meq/L</td> <td>23.0-28.0</td> </tr&gt ; <tr> <td>METHOD</td> <td>Bedside &lt ;/td> <td /> </tr> <tr> &lt ;td>ABG PCO2</td> <td>38 mm Hg</td> < td>34-45</td> </tr> <tr> <td>ABG PH& lt;/td> <td>7.44 </td> <td>7.35-7.45</ td> </tr> <tr> <td>ABG PO2</td&gt ; <td>325 mm Hg</td> <td>75-100</td> </tr> <tr> <td>ABG O2 SATURATION</td> <td>100 %</td> <td>93-100</td> </tr> <tr> <td>METHOD</td> & lt;td>Bedside </td> <td /> </tr> &lt ;tr> <td>METHOD</td> <td>Bedside </td> <td /> </tr> <tr> <td> GLUCOSE</td> <td>49 mg/dL</td> <td>70- 99</td> </tr> <tr> <td>HEMOGLOBIN </td> <td>7.8 gm/dL</td> <td>14.0-18.0 </td> </tr> <tr> <td>HEMATOCRIT</td& gt; <td>23.0 %</td> <td>40.0-54.0&lt ;/td> </tr> <tr> <td>SODIUM</td> <td>135 mmol/L</td> <td>135-148</td> </tr> <tr> <td>CARBON DIOXIDE</td> <td>26 mmol/L</td> <td>21-32</td> </tr> <tr> <td>CALCIUM IONIZED</td> <td>5.0 mg/dL</td> <td>4.5-5.3</td> </tr> <tr> <th colspan="10"> SURGERY PROFILE BEDSIDE - 05/02/12 11:02</th> </tr> & lt;tr> <td>POTASSIUM</td> <td>3.4 mmol/L& lt;/td> <td>3.5-5.3</td> </tr> < tr> <td>ABG BASE EXCESS</td> <td>1.0 meq/ L</td> <td>-3.0-3.0</td> </tr> & lt;tr> <td>ABG BICARBONATE</td> <td>25.3 meq/L</td> <td>23.0-28.0</td> </tr> <tr> <td>METHOD</td> <td>Bedside & lt;/td> <td /> </tr> <tr> & lt;td>ABG PCO2</td> <td>38 mm Hg</td> &lt ;td>34-45</td> </tr> <tr> <td> ABG PH</td> <td>7.44 </td> <td>7.35- 7.45</td> </tr> <tr> <td>ABG PO2< /td> <td>325 mm Hg</td> <td>75-100</td > </tr> <tr> <td>ABG O2 SATURATION& lt;/td> <td>100 %</td> <td>93-100</ td> </tr> <tr> <td>METHOD</td> <td>Bedside </td> <td /> </tr> <tr> <td>METHOD</td> <td>Bedside & lt;/td> <td /> </tr> <tr> & lt;td>GLUCOSE</td> <td>49 mg/dL</td> < td>70-99</td> </tr> <tr> <td> HEMOGLOBIN</td> <td>7.8 gm/dL</td> <td&gt ;14.0-18.0</td> </tr> <tr> <td> HEMATOCRIT</td> <td>23.0 %</td> < td>40.0-54.0</td> </tr> <tr> <td& gt;SODIUM</td> <td>135 mmol/L</td> <td&gt ;135-148</td> </tr> <tr> <td>CARBON DIOXIDE</td> <td>26 mmol/L</td> <td>21 -32</td> </tr> <tr> <td>CALCIUM IONIZED</td> <td>5.0 mg/dL</td> <td>4.5 -5.3</td> </tr> <tr> <th colspan="10 ">SURGERY PROFILE BEDSIDE - 05/02/12 11:38</th> </tr&gt ; <tr> <td>POTASSIUM</td> <td> 3.1 mmol/L</td> <td>3.5-5.3</td> </tr> <tr> <td>ABG BASE EXCESS</td> <td> 0.0 meq/L</td> <td>-3.0-3.0</td> </tr> <tr> <td>ABG BICARBONATE</td> <td& gt;24.9 meq/L</td> <td>23.0-28.0</td> </tr& gt; <tr> <td>METHOD</td> <td> Bedside </td> <td /> </tr> <tr> <td>ABG PCO2</td> <td>40 mm Hg</td> <td >34-45</td> </tr> <tr> <td> ABG PH</td> <td>7.41 </td> <td>7.35- 7.45</td> </tr> <tr> <td>ABG PO2& lt;/td> <td>514 mm Hg</td> <td>75-100< /td> </tr> <tr> <td>ABG O2 SATURATION</td> <td>100 %</td> <td>93 -100</td> </tr> <tr> <td>METHOD& lt;/td> <td>Bedside </td> <td /> & lt;/tr> <tr> <td>METHOD</td> < td>Bedside </td> <td /> </tr> <tr&gt ; <td>GLUCOSE</td> <td>88 mg/dL</td> <td>70-99</td> </tr> <tr> <td>HEMOGLOBIN</td> <td>8.8 gm/dL</td> <td>14.0-18.0</td> </tr> <tr> <td>HEMATOCRIT</td> <td>26.0 %</td> <td>40.0-54.0</td> </tr> <tr> <td>SODIUM</td> <td>135 mmol/L</td> <td>135-148</td> </tr> <tr> <td>CARBON DIOXIDE</td> <td>26 mmol/L</td> <td>21-32</td> </tr> <tr> & lt;td>CALCIUM IONIZED</td> <td>4.8 mg/dL</td> & lt;td>4.5-5.3</td> </tr> <tr> < th colspan="10">SURGERY PROFILE BEDSIDE - 05/02/12 11:38</th&gt ; </tr> <tr> <td>POTASSIUM</td> <td>3.1 mmol/L</td> <td>3.5-5.3</td> </tr> <tr> <td>ABG BASE EXCESS</td> <td>0.0 meq/L</td> <td>-3.0-3.0</td> </tr> <tr> <td>ABG BICARBONATE</td> <td>24.9 meq/L</td> <td>23.0-28.0</td> </tr> <tr> <td>METHOD</td> & lt;td>Bedside </td> <td /> </tr> &lt ;tr> <td>ABG PCO2</td> <td>40 mm Hg</ td> <td>34-45</td> </tr> <tr> <td>ABG PH</td> <td>7.41 </td> &lt ;td>7.35-7.45</td> </tr> <tr> <td >ABG PO2</td> <td>514 mm Hg</td> <td& gt;75-100</td> </tr> <tr> <td> ABG O2 SATURATION</td> <td>100 %</td> <td>93-100</td> </tr> <tr> &lt ;td>METHOD</td> <td>Bedside </td> <td /&gt ; </tr> <tr> <td>METHOD</td> < td>Bedside </td> <td /> </tr> <tr > <td>GLUCOSE</td> <td>88 mg/dL</td&gt ; <td>70-99</td> </tr> <tr> <td>HEMOGLOBIN</td> <td>8.8 gm/dL</td> <td>14.0-18.0</td> </tr> <tr> &lt ;td>HEMATOCRIT</td> <td>26.0 %</td> <td>40.0-54.0</td> </tr> <tr> <td>SODIUM</td> <td>135 mmol/L</td> <td&gt ;135-148</td> </tr> <tr> <td> CARBON DIOXIDE</td> <td>26 mmol/L</td><td>21-32 </td> </tr> <tr> <td>CALCIUM IONIZED</td> <td>4.8 mg/dL</td> <td> 4.5-5.3</td> </tr> <tr> <th colspan= "10">ARTERIAL BLOOD GAS - 05/02/12 12:15</th> </tr& gt; <tr> <td>ABG BASE EXCESS</td> <td>- 1.5 meq/L</td> <td>-3.0-3.0</td> </tr> <tr> <td>ABG FIO2</td> <td>60 & amp;#37;</td> <td /> </tr> <tr> <td>ABG BICARBONATE</td> <td>22.5 meq/L</td> <td>23.0-28.0</td> </tr><tr> & lt;td>ABG PCO2</td> <td>33 mm Hg</td> &lt ;td>34-45</td> </tr> <tr> <td> ABG PEEP</td> <td>5 CM</td> <td /> </tr> <tr> <td>ABG PH</td> <td> 7.45 </td> <td>7.35-7.45</td> </tr> <tr> <td>ABG PO2</td> <td>262 mm Hg</td> <td>75-100</td> </tr> &lt ;tr><td>ABG PRESSURE SUPPORT</td> <td>10 CM</td > <td /> </tr> <tr> <td&gt ;ABG VENT RATE</td> <td>12 </td> <td /&gt ; </tr> <tr> <td>ABG O2 SATURATION</ td> <td>99 %</td> <td>93-100</ td> </tr> <tr> <td>ABG TEMPERATURE</ td> <td>35.4 C</td> <td /> </tr > <tr> <td>ABG TIDAL VOLUME</td> & lt;td>600 CC</td> <td /> </tr> <tr& gt; <th colspan="10">CALCIUM IONIZED - 05/02/12 12:15& lt;/th> </tr> <tr> <td>CALCIUM IONIZED</td> <td>4.5 mg/dL</td> <td> 4.5-5.3</td> </tr> <tr> <th colspan=& quot;10">CBC - 05/02/12 12:15</th> </tr> < tr> <td>MEAN CELL HGB</td> <td>32.6 pg&lt ;/td> <td>27.0-33.0</td> </tr> < tr> <td>MEAN CELL HGB CONCENTRATION</td> <td >34.6 g/dl</td> <td>32.0-36.0</td> </tr& gt; <tr> <td>MEAN CELL VOLUME</td> & lt;td>94.3 fl</td> <td>80.0-100.0</td> < /tr> <tr> <td>RED BLOOD CELL</td> & lt;td>3.16 m/cumm</td> <td>4.00-6.00</td> & lt;/tr> <tr> <td>RED CELL DISTRIBUTION WIDTH</ td> <td>12.2 %</td> <td>11.0-15.6 </td> </tr> <tr> <td>WHITE BLOOD CELL</td> <td>17.5 k/cumm</td> <td>5.0 -10.0</td> </tr> <tr> <td> HEMOGLOBIN</td> <td>10.3 gm/dL</td> <td& gt;14.0-18.0</td> </tr> <tr> <td> HEMATOCRIT</td> <td>29.8 %</td> < td>40.0-54.0</td> </tr> <tr> <td& gt;PLATELET COUNT</td> <td>123 k/cumm</td> & lt;td>150-450</td> </tr> <tr> < th colspan="10">METABOLIC PANEL, BASIC - 05/02/12 12:15</th> </tr><tr> <td>POTASSIUM</td> & lt;td>3.2 mmol/L</td><td>3.5-5.3</td> </tr> <tr> <td>EST GFR (MDRD)</td> <td&gt ;> 60 mL/min</td> <td>> 59</td> & lt;/tr> <tr> <td>ANION GAP</td> & lt;td>8 mmol/L</td> <td>5-15</td> </tr& gt; <tr> <td>GLUCOSE</td> <td> 89 mg/dL</td> <td>70-99</td> </tr> & lt;tr> <td>CALCIUM</td> <td>7.7 mg/dL< /td> <td>8.5-10.1</td> </tr> <tr& gt; <td>BLOOD UREA NITROGEN</td> <td>17 mg/ dL</td> <td>7-20</td> </tr> < tr> <td>CREATININE</td> <td>0.7 mg/dL< /td> <td>0.8-1.3</td> </tr> <tr& gt; <td>SODIUM</td> <td>137 mmol/L</td&gt ; <td>135-148</td> </tr> <tr> <td>CHLORIDE</td><td>105 mmol/L</td> &lt ;td>98-110</td> </tr> <tr> <td&gt ;CARBON DIOXIDE</td> <td>24 mmol/L</td> < td>21-32</td> </tr> <tr> <th colspan="10">MAGNESIUM - 05/02/12 12:15</th> </tr& gt; <tr> <td>MAGNESIUM</td> <td&gt ;2.3 mg/dL</td> <td>1.8-2.4</td> </tr> & lt;tr> <th colspan="10">ARTERIAL BLOOD GAS - 12:15</th> </tr> <tr> <td>ABG BASE EXCESS</td> <td>-1.5 meq/L</td> <td& gt;-3.0-3.0</td> </tr> <tr> <td> ABG FIO2</td> <td>60 %</td> <td /&gt ; </tr> <tr> <td>ABG BICARBONATE</td > <td>22.5 meq/L</td> <td>23.0-28.0</ td> </tr> <tr> <td>ABG PCO2</td& gt; <td>33 mm Hg</td> <td>34-45</td> </tr> <tr> <td>ABG PEEP</td> <td>5 CM</td> <td /> </tr> <tr > <td>ABG PH</td> <td>7.45 </td> <td>7.35-7.45</td> </tr> <tr> <td>ABG PO2</td> <td>262 mm Hg</td> <td>75-100</td> </tr> <tr> < td>ABG PRESSURE SUPPORT</td> <td>10 CM</td> <td /> </tr> <tr> <td>ABG VENT RATE</td> <td>12 </td> <td /> </tr> <tr> <td>ABG O2 SATURATION</td& gt; <td>99 %</td> <td>93-100</td& gt; </tr> <tr> <td>ABG TEMPERATURE</ td> <td>35.4 C</td> <td /> </tr > <tr> <td>ABG TIDAL VOLUME</td> & lt;td>600 CC</td> <td /> </tr> < tr> <th colspan="10">CALCIUM IONIZED - 05/02/12 12: 15</th> </tr> <tr> <td>CALCIUM IONIZED</td> <td>4.5 mg/dL</td> <td>4.5-5.3< /td> </tr> <tr> <th colspan="10& quot;>CBC - 05/02/12 12:15</th> </tr> <tr> <td>MEAN CELL HGB</td> <td>32.6 pg</td> <td>27.0-33.0</td> </tr> <tr> <td>MEAN CELL HGB CONCENTRATION</td> <td>34.6 g/dl& lt;/td> <td>32.0-36.0</td> </tr> &lt ;tr> <td>MEAN CELL VOLUME</td> <td>94.3 fl</td > <td>80.0-100.0</td> </tr> <tr& gt; <td>RED BLOOD CELL</td> <td>3.16 m/cumm& lt;/td> <td>4.00-6.00</td> </tr> <tr&gt ; <td>RED CELL DISTRIBUTION WIDTH</td> <td> 12.2 %</td> <td>11.0-15.6</td> </tr > <tr> <td>WHITE BLOOD CELL</td> <td& gt;17.5 k/cumm</td> <td>5.0-10.0</td> </tr& gt; <tr> <td>HEMOGLOBIN</td> <td>10.3 gm/dL</td> <td>14.0-18.0</td> </tr> < tr> <td>HEMATOCRIT</td> <td>29.8 &#37 ;</td> <td>40.0-54.0</td> </tr> <tr& gt; <td>PLATELET COUNT</td> <td>123 k/cumm& lt;/td> <td>150-450</td> </tr> < tr> <th colspan="10">METABOLIC PANEL, BASIC - 05/02/ 12:15</th> </tr> <tr> <td> POTASSIUM</td> <td>3.2 mmol/L</td> <td> 3.5-5.3</td> </tr> <tr> <td>EST GFR(MDRD)</td> <td>> 60 mL/min</td> & lt;td>> 59</td> </tr> <tr> & lt;td>ANION GAP</td> <td>8 mmol/L</td> & lt;td>5-15</td> </tr> <tr> <td> GLUCOSE</td> <td>89 mg/dL</td> <td>70- 99</td> </tr> <tr> <td>CALCIUM&lt ;/td> <td>7.7 mg/dL</td> <td>8.5-10.1< /td> </tr> <tr> <td>BLOOD UREA NITROGEN&lt ;/td> <td>17 mg/dL</td> <td>7-20</td& gt; </tr> <tr> <td>CREATININE</td&gt ; <td>0.7 mg/dL</td> <td>0.8-1.3</td> </tr> <tr> <td>SODIUM</td> & lt;td>137 mmol/L</td> <td>135-148</td> < /tr> <tr> <td>CHLORIDE</td> <td& gt;105 mmol/L</td> <td>98-110</td> </tr&gt ; <tr> <td>CARBON DIOXIDE</td> <td> 24 mmol/L</td> <td>21-32</td> </tr> & lt;tr> <th colspan="10">MAGNESIUM - 05/02/12 12:15& lt;/th> </tr> <tr> <td>MAGNESIUM< /td> <td>2.3 mg/dL</td> <td>1.8-2.4</ td> </tr> <tr> <th colspan="10& quot;>GLUCOSE (POC) - 05/02/12 12:17</th> </tr> &lt ;tr> <td>GLUCOSE (POC)</td> <td>89 mg/dL& lt;/td> <td>70-99</td> </tr> <tr> <th colspan="10">GLUCOSE (POC) - 05/02/12 12:17</th& gt; </tr> <tr> <td>GLUCOSE (POC)</td> <td>89 mg/dL</td> <td>70-99</td> </tr> <tr> <th colspan="10"> GLUCOSE (POC) - 05/02/12 13:13</th> </tr> <tr> <td>GLUCOSE (POC)</td> <td>107 mg/dL</td& gt; <td>70-99</td> </tr> <tr> <th colspan="10">GLUCOSE (POC) - 05/02/12 13:13</th&gt ; </tr> <tr> <td>GLUCOSE (POC)</td& gt; <td>107 mg/dL</td> <td>70-99</td> </tr> <tr> <th colspan="10"> GLUCOSE (POC) - 05/02/12 14:14</th> </tr> <tr> <td>GLUCOSE (POC)</td> <td>131 mg/dL</td& gt; <td>70-99</td> </tr> <tr> <th colspan="10">GLUCOSE (POC) - 05/02/12 14:14</th> &lt ;/tr> <tr> <td>GLUCOSE (POC)</td> <td>131 mg/dL</td> <td>70-99</td> </ tr> <tr> <th colspan="10">GLUCOSE (POC ) - 05/02/12 15:46</th> </tr> <tr> < td>GLUCOSE (POC)</td> <td>136 mg/dL</td><td> 70-99</td> </tr> <tr> <th colspan=& quot;10">GLUCOSE (POC) - 05/02/12 15:46</th> </tr> <tr> <td>GLUCOSE (POC)</td> <td> 136 mg/dL</td> <td>70-99</td> </tr> <tr> <th colspan="10">POTASSIUM - 05/02/12 16 :30</th> </tr> <tr> <td>POTASSIUM </td> <td>4.4 mmol/L</td> <td>3.5-5.3</td& gt; </tr> <tr> <th colspan="10"& gt;POTASSIUM - 05/02/12 16:30</th> </tr> <tr> <td>POTASSIUM</td> <td>4.4 mmol/L</td> <td>3.5-5.3</td> </tr> <tr> <th colspan="10">ARTERIAL BLOOD GAS - 05/02/12 16:42</ th> </tr> <tr> <td>ABG BASE EXCESS& lt;/td> <td>-0.8 meq/L</td> <td>-3.0-3.0& lt;/td> </tr> <tr> <td>ABG FIO2</ td> <td>40 %</td> <td /> & lt;/tr> <tr> <td>ABG BICARBONATE</td> <td>23.5 meq/L</td><td>23.0-28.0</td> </ tr> <tr> <td>ABG PCO2</td> <td& gt;38 mm Hg</td> <td>34-45</td> </tr> <tr> <td>ABG PEEP</td> <td>5 CM&lt ;/td> <td /> </tr> <tr> &lt ;td>ABG PH</td> <td>7.42 </td> <td> 7.35-7.45</td> </tr> <tr> <td>ABG PO2 </td> <td>168 mm Hg</td> <td>75-100&lt ;/td> </tr> <tr> <td>ABG PRESSURE SUPPORT</td> <td>10 CM</td> <td /> </tr> <tr> <td>ABG O2 SATURATION</td> <td>99 %</td> <td>93-100</td> & lt;/tr> <tr> <th colspan="10">ARTERIAL BLOOD GAS - 05/02/12 16:42</th> </tr> <tr> <td>ABG BASE EXCESS</td> <td>-0.8 meq/L</td& gt; <td>-3.0-3.0</td> </tr> <tr> <td>ABG FIO2</td> <td>40 %</td& gt; <td /> </tr> <tr> <td& gt;ABG BICARBONATE</td> <td>23.5 meq/L</td> <td>23.0-28.0</td> </tr> <tr> &lt ;td>ABG PCO2</td> <td>38 mm Hg</td> < td>34-45</td> </tr> <tr> <td>ABG PEEP& lt;/td> <td>5 CM</td> <td /> </ tr> <tr> <td>ABG PH</td> <td&gt ;7.42 </td> <td>7.35-7.45</td> </tr> <tr> <td>ABG PO2</td> <td>168 mm Hg&lt ;/td> <td>75-100</td> </tr> <tr& gt; <td>ABG PRESSURE SUPPORT</td> <td>10 CM& lt;/td> <td /> </tr> <tr> & lt;td>ABG O2 SATURATION</td> <td>99 %</td&gt ; <td>93-100</td> </tr> <tr> & lt;th colspan="10">GLUCOSE (POC) - 05/02/12 18:56</th> </tr> <tr> <td>GLUCOSE (POC)</td> & lt;td>148 mg/dL</td> <td>70-99</td> </tr > <tr> <th colspan="10">GLUCOSE (POC) - 05/02/12 18:56</th> </tr> <tr> <td >GLUCOSE (POC)</td> <td>148 mg/dL</td> & lt;td>70-99</td> </tr> <tr> <th colspan="10">GLUCOSE (POC) - 05/02/12 21:26</th> </ tr> <tr> <td>GLUCOSE (POC)</td> & lt;td>184 mg/dL</td> <td>70-99</td> </tr > <tr> <th colspan="10">GLUCOSE (POC) - 05/02/12 21:26</th> </tr> <tr> <td >GLUCOSE (POC)</td> <td>184 mg/dL</td> & lt;td>70-99</td> </tr> <tr> <th colspan="10">GLUCOSE (POC) - 05/02/12 22:27</th> </ tr> <tr> <td>GLUCOSE (POC)</td> <td& gt;167 mg/dL</td> <td>70-99</td> </tr> <tr> <th colspan="10">GLUCOSE (POC) - 02/07 22:27</th> </tr> <tr> <td> GLUCOSE (POC)</td> <td>167 mg/dL</td> <td >70-99</td> </tr> <tr> <th colspan="10">GLUCOSE (POC) - 05/02/12 23:22</th> </ tr> <tr> <td>GLUCOSE (POC)</td> & lt;td>186 mg/dL</td> <td>70-99</td> </tr > <tr> <th colspan="10">GLUCOSE (POC) - 05/02/12 23:22</th> </tr> <tr> <td >GLUCOSE (POC)</td> <td>186 mg/dL</td> & lt;td>70-99</td> </tr> <tr> <th colspan="10">GLUCOSE (POC) - 05/03/1200:12</th> </ tr> <tr> <td>GLUCOSE (POC)</td> <td >207 mg/dL</td> <td>70-99</td> </tr> <tr> <th colspan="10">GLUCOSE (POC) - 03/07 00:12</th> </tr> <tr> <td> GLUCOSE (POC)</td> <td>207 mg/dL</td> <td >70-99</td> </tr> <tr> <thcolspan ="10">GLUCOSE (POC) - 05/03/12 01:06</th> </tr> <tr> <td>GLUCOSE (POC)</td> <td& gt;212 mg/dL</td> <td>70-99</td> </tr> <tr> <th colspan="10">GLUCOSE (POC) - 03/07 01:06</th> </tr> <tr> <td> GLUCOSE (POC)</td> <td>212 mg/dL</td> <td >70-99</td> </tr> <tr> <th colspan=& quot;10">GLUCOSE (POC) - 05/03/12 02:11</th> </tr> <tr> <td>GLUCOSE (POC)</td> <td> 187 mg/dL</td> <td>70-99</td> </tr> <tr> <th colspan="10">GLUCOSE (POC) - 02:11</th></tr> <tr> <td>GLUCOSE (POC )</td> <td>187 mg/dL</td> <td>70-99&lt ;/td> </tr> <tr> <th colspan="10& quot;>ARTERIAL BLOOD GAS - 05/03/12 03:00</th> </tr> <tr> <td>ABG BASE EXCESS</td> <td>- 8.9 meq/L</td> <td>-3.0-3.0</td> </tr> <tr> <td>ABG DEVICE</td> <td>NC < /td> <td /> </tr> <tr> < td>ABG BICARBONATE</td> <td>16.1 meq/L</td> <td>23.0-28.0</td> </tr> <tr> <td>ABG L/M</td> <td>2.0 </td> < td /> </tr> <tr> <td>ABG PCO2</td&gt ; <td>32 mm Hg</td> <td>34-45</td> </tr> <tr> <td>ABG PH</td> <td>7.32 </td> <td>7.35-7.45</td> < /tr> <tr> <td>ABG PO2</td> <td> 121 mm Hg</td> <td>75-100</td> </tr> <tr> <td>ABG O2 SATURATION</td> <td>99 & amp;#37;</td> <td>93-100</td> </tr> <tr> <th colspan="10">CBC - 05/03/12 03:00&lt ;/th> </tr> <tr> <td>MEAN CELL HGB& lt;/td> <td>32.3 pg</td> <td>27.0-33.0< /td> </tr> <tr> <td>MEANCELL HGB CONCENTRATION</td> <td>33.9 g/dl</td> <td >32.0-36.0</td> </tr> <tr> <td&gt ;MEAN CELL VOLUME</td> <td>95.2 fl</td> <td&gt ;80.0-100.0</td> </tr><tr> <td>RED BLOOD CELL</td> <td>2.94 m/cumm</td> <td> 4.00-6.00</td> </tr> <tr> <td> RED CELL DISTRIBUTION WIDTH</td> <td>12.4 %</td& gt; <td>11.0-15.6</td> </tr> <tr&gt ; <td>WHITE BLOOD CELL</td> <td>14.7 k/cumm< /td> <td>5.0-10.0</td> </tr> <tr> <td>HEMOGLOBIN</td> <td>9.5 gm/dL</td&gt ; <td>14.0-18.0</td> </tr> <tr> <td>HEMATOCRIT</td> <td>28.0 %</td> <td>40.0-54.0</td> </tr> <tr> <td>PLATELET COUNT</td> <td>102k/cumm</td> <td>150-450</td> </tr> <tr> < th colspan="10">CALCIUM IONIZED - 05/03/12 03:00</th> </tr> <tr> <td>CALCIUM IONIZED</td> <td>4.5 mg/dL</td> <td>4.5-5.3</td> </ tr> <tr> <th colspan="10">METABOLIC PANEL, BASIC - 05/03/12 03:00</th> </tr> <tr> <td>POTASSIUM</td> <td>2.4 mmol/L</td> <td>3.5-5.3</td> </tr> <tr> <td>EST GFR (MDRD)</td> <td>56 mL/min</td&gt ; <td>> 59</td> </tr> <tr&gt ; <td>ANION GAP</td> <td>18 mmol/L</td&gt ; <td>5-15</td> </tr> <tr> <td>GLUCOSE</td> <td>209 mg/dL</td> & lt;td>70-99</td> </tr> <tr> <td& gt;CALCIUM</td> <td>8.1 mg/dL</td> <td>8.5- 10.1</td> </tr> <tr> <td>BLOOD UREA NITROGEN</td> <td>16 mg/dL</td> <td& gt;7-20</td> </tr> <tr> <td>CREATININE& lt;/td> <td>1.3 mg/dL</td> <td>0.8-1.3&lt ;/td> </tr> <tr> <td>SODIUM</td& gt; <td>136 mmol/L</td> <td>135-148</td& gt; </tr> <tr> <td>CHLORIDE</td> <td>101 mmol/L</td> <td>98-110</td> </tr> <tr> <td>CARBON DIOXIDE</td&gt ; <td>17 mmol/L</td> <td>21-32</td> </tr> <tr> <th colspan="10"> MAGNESIUM - 05/03/12 03:00</th> </tr> <tr> <td>MAGNESIUM</td> <td>1.9 mg/dL</td> <td>1.8-2.4</td> </tr> <tr> &lt ;th colspan="10">ARTERIAL BLOOD GAS - 05/03/12 03:00</th> </tr> <tr> <td>ABG BASE EXCESS</td&gt ; <td>-8.9 meq/L</td> <td>-3.0-3.0</td&gt ; </tr> <tr> <td>ABG DEVICE</td> <td>NC </td> <td /> </tr> & lt;tr> <td>ABG BICARBONATE</td> <td>16.1 meq/L</td> <td>23.0-28.0</td> </tr> <tr> <td>ABG L/M</td> <td>2.0 </td& gt; <td /> </tr> <tr> <td& gt;ABG PCO2</td> <td>32 mm Hg</td> <td&gt ;34-45</td> </tr> <tr> <td>ABG PH </td> <td>7.32 </td> <td>7.35-7.45< /td> </tr> <tr> <td>ABG PO2</td& gt; <td>121 mm Hg</td> <td>75-100</td&gt ; </tr> <tr> <td>ABG O2 SATURATION</ td> <td>99 %</td> <td>93-100</ td> </tr> <tr> <th colspan="10& quot;>CBC - 05/03/12 03:00</th> </tr> <tr> <td>MEAN CELL HGB</td> <td>32.3 pg</td> <td>27.0-33.0</td> </tr> <tr> & lt;td>MEAN CELL HGB CONCENTRATION</td> <td>33.9 g/dl< /td> <td>32.0-36.0</td> </tr> <tr > <td>MEAN CELL VOLUME</td> <td>95.2 fl& lt;/td> <td>80.0-100.0</td> </tr> & lt;tr> <td>RED BLOOD CELL</td> <td>2.94 m /cumm</td> <td>4.00-6.00</td> </tr> <tr> <td>RED CELL DISTRIBUTION WIDTH</td> <td>12.4 %</td> <td>11.0-15.6</td> </tr> <tr> <td>WHITE BLOOD CELL</td& gt; <td>14.7 k/cumm</td> <td>5.0-10.0</td > </tr> <tr> <td>HEMOGLOBIN</td& gt; <td>9.5 gm/dL</td> <td>14.0-18.0</td& gt; </tr> <tr> <td>HEMATOCRIT</td&gt ; <td>28.0 %</td> <td>40.0-54.0</ td> </tr> <tr> <td>PLATELET COUNT&lt ;/td> <td>102 k/cumm</td> <td>150-450< /td> </tr> <tr> <th colspan="10& quot;>CALCIUM IONIZED - 05/03/12 03:00</th> </tr> & lt;tr> <td>CALCIUM IONIZED</td> <td>4.5 mg/dL</td> <td>4.5-5.3</td> </tr> <tr> <th colspan="10">METABOLIC PANEL, BASIC - 05/03/12 03:00</th> </tr> <tr> <td> POTASSIUM</td> <td>2.4 mmol/L</td> <td&gt ;3.5-5.3</td> </tr> <tr> <td>EST GFR (MDRD)</td> <td>56 mL/min</td> <td&gt ;> 59</td> </tr> <tr> <td> ANION GAP</td> <td>18 mmol/L</td> <td> 5-15</td> </tr> <tr> <td>GLUCOSE&lt ;/td> <td>209 mg/dL</td> <td>70-99</td > </tr> <tr> <td>CALCIUM</td> <td>8.1 mg/dL</td> <td>8.5-10.1</td> </tr> <tr> <td>BLOOD UREA NITROGEN< /td> <td>16 mg/dL</td> <td>7-20</td&gt ; </tr> <tr> <td>CREATININE</td> <td>1.3 mg/dL</td> <td>0.8-1.3</td> </tr> <tr> <td>SODIUM</td> & lt;td>136 mmol/L</td> <td>135-148</td> </tr> <tr> <td>CHLORIDE</td> <td>101 mmol/L</td> <td>98-110</td> </tr> <tr> <td>CARBON DIOXIDE</td> <td>17 mmol/L</td> <td>21-32</td> </tr> <tr> <th colspan="10">MAGNESIUM - 05/03/12 03:00& lt;/th> </tr> <tr><td>MAGNESIUM</td> <td>1.9 mg/dL</td> <td>1.8-2.4</td> </tr> <tr> <th colspan="10"> GLUCOSE (POC)- 05/03/12 03:03</th> </tr> <tr> <td>GLUCOSE (POC)</td> <td>224 mg/dL</td& gt; <td>70-99</td> </tr> <tr> <th colspan="10">GLUCOSE (POC) - 05/03/12 03:03</th&gt ; </tr> <tr> <td>GLUCOSE (POC)</td& gt; <td>224 mg/dL</td> <td>70-99</td> </tr> <tr> <th colspan="10"> GLUCOSE (POC) - 05/03/12 04:21</th> </tr> <tr> <td>GLUCOSE (POC)</td> <td>212 mg/dL</td> <td>70-99</td> </tr> <tr> <th colspan="10">GLUCOSE (POC) - 05/03/12 04:21</th> </tr> <tr> <td>GLUCOSE (POC)</td> <td>212 mg/dL</td> <td>70-99</td> </tr> <tr> <th colspan="10"> GLUCOSE (POC) - 05/03/12 05:01</th> </tr> <tr> <td>GLUCOSE (POC)</td> <td>206 mg/dL</td& gt; <td>70-99</td> </tr> <tr> <th colspan="10">GLUCOSE (POC) - 05/03/12 05:01</th&gt ; </tr> <tr> <td>GLUCOSE (POC)</td& gt; <td>206 mg/dL</td> <td>70-99</td> </tr> <tr> <th colspan="10"> GLUCOSE (POC) - 05/03/12 05:32</th> </tr> <tr> <td>GLUCOSE (POC)</td> <td>209 mg/dL</td&gt ; <td>70-99</td> </tr> <tr> <th colspan="10">GLUCOSE (POC) - 05/03/12 05:32</th> </tr> <tr><td>GLUCOSE (POC)</td> & lt;td>209 mg/dL</td> <td>70-99</td> </tr > <tr> <th colspan="10">GLUCOSE (POC) - 05/03/12 05:47</th> </tr> <tr> <td >GLUCOSE (POC)</td> <td>202 mg/dL</td> & lt;td>70-99</td> </tr> <tr> <th colspan="10">GLUCOSE (POC) - 05/03/12 05:47</th> </ tr> <tr> <td>GLUCOSE (POC)</td> & lt;td>202 mg/dL</td> <td>70-99</td> </tr > <tr> <th colspan="10">GLUCOSE (POC) - 03/07 05:59</th> </tr> <tr> <td> GLUCOSE (POC)</td> <td>207 mg/dL</td> <td& gt;70-99</td> </tr> <tr> <th colspan ="10">GLUCOSE (POC) - 05/03/12 05:59</th> </tr> <tr> <td>GLUCOSE (POC)</td> <td>207 mg/ dL</td> <td>70-99</td> </tr> < tr> <th colspan="10">GLUCOSE (POC) - 05/03/12 07:04& lt;/th> </tr> <tr> <td>GLUCOSE (POC) </td> <td>174 mg/dL</td> <td>70-99< /td> </tr> <tr> <th colspan="10& quot;>GLUCOSE (POC) - 05/03/12 07:04</th> </tr> &lt ;tr> <td>GLUCOSE (POC)</td> <td>174 mg/dL </td> <td>70-99</td> </tr> <tr > <th colspan="10">GLUCOSE (POC) - 05/03/12 07:54</ th> </tr> <tr> <td>GLUCOSE (POC)</ td> <td>149 mg/dL</td> <td>70-99</td& gt; </tr> <tr> <th colspan="10"& gt;GLUCOSE (POC) - 05/03/12 07:54</th> </tr> <tr&gt ; <td>GLUCOSE (POC)</td> <td>149 mg/dL</td> <td>70-99</td> </tr> <tr> <th colspan="10">GLUCOSE (POC) - 05/03/12 09:11</th> </tr> <tr> <td>GLUCOSE (POC)</td> <td>114 mg/dL</td> <td>70-99</td> </tr> <tr> <th colspan="10"> GLUCOSE (POC) - 05/03/12 09:11</th> </tr> <tr> <td>GLUCOSE (POC)</td> <td>114 mg/dL</td& gt; <td>70-99</td> </tr> <tr> <th colspan="10">GLUCOSE (POC) - 05/03/12 10:28</th> </tr> <tr> <td>GLUCOSE (POC)</td&gt ; <td>62 mg/dL</td> <td>70-99</td> </tr> <tr> <th colspan="10"> GLUCOSE (POC) - 05/03/12 10:28</th> </tr> <tr> <td>GLUCOSE (POC)</td> <td>62 mg/dL</td> <td>70-99</td> </tr> <tr> &lt ;th colspan="10">POTASSIUM - 05/03/12 10:55</th> </ tr> <tr> <td>POTASSIUM</td> <td >2.6 mmol/L</td> <td>3.5-5.3</td> </tr& gt; <tr> <th colspan="10">POTASSIUM - 05/03 10:55</th> </tr> <tr> <td> POTASSIUM</td> <td>2.6 mmol/L</td> <td&gt ;3.5-5.3</td> </tr> <tr> <th colspan ="10">GLUCOSE (POC) - 05/03/12 10:57</th> </tr> <tr> <td>GLUCOSE (POC)</td> <td& gt;54 mg/dL</td> <td>70-99</td> </tr> <tr> <th colspan="10">GLUCOSE (POC) - 05/03 10:57</th> </tr> <tr> <td> GLUCOSE (POC)</td> <td>54 mg/dL</td> <td& gt;70-99</td> </tr> <tr> <th colspan= "10">GLUCOSE (POC) - 05/03/12 11:30</th> </tr> <tr> <td>GLUCOSE (POC)</td> <td> 94 mg/dL</td> <td>70-99</td> </tr><tr > <th colspan="10">GLUCOSE (POC) - 05/03/12 11:30&lt ;/th> </tr> <tr> <td>GLUCOSE (POC)</td& gt; <td>94 mg/dL</td> <td>70-99</td> </tr> <tr> <th colspan="10"> GLUCOSE (POC) - 05/03/12 12:18</th> </tr> <tr> <td>GLUCOSE (POC)</td> <td>65 mg/dL</td& gt; <td>70-99</td> </tr> <tr> <th colspan="10">GLUCOSE (POC) - 05/03/12 12:18</th&gt ; </tr> <tr> <td>GLUCOSE (POC)</td& gt; <td>65 mg/dL</td> <td>70-99</td> </tr> <tr> <th colspan="10"> GLUCOSE (POC) - 05/03/1212:52</th> </tr> <tr> <td>GLUCOSE (POC)</td> <td>91 mg/dL</td> <td>70-99</td> </tr> <tr> <th colspan="10">GLUCOSE (POC) - 05/03/12 12:52</th> </tr> <tr> <td>GLUCOSE (POC)</td> <td>91 mg/dL</td> <td>70-99</td> </tr> <tr> <th colspan="10"> GLUCOSE (POC) - 05/03/12 13:32</th> </tr> <tr> <td>GLUCOSE (POC)</td> <td>77 mg/dL</td& gt; <td>70-99</td> </tr> <tr> <th colspan="10">GLUCOSE (POC) - 05/03/12 13:32</th&gt ; </tr> <tr> <td>GLUCOSE (POC)</td& gt; <td>77 mg/dL</td> <td>70-99</td> & lt;/tr> <tr> <th colspan="10">GLUCOSE ( POC) - 05/03/12 14:39</th> </tr> <tr> & lt;td>GLUCOSE (POC)</td> <td>115 mg/dL</td> < td>70-99</td> </tr> <tr> <th colspan="10">GLUCOSE (POC) - 05/03/12 14:39</th> </ tr> <tr> <td>GLUCOSE (POC)</td> & lt;td>115 mg/dL</td> <td>70-99</td> </tr > <tr> <th colspan="10">GLUCOSE (POC) - 05/03/12 15:50</th> </tr> <tr> <td >GLUCOSE (POC)</td> <td>142 mg/dL</td> & lt;td>70-99</td> </tr> <tr> <th colspan="10">GLUCOSE (POC) - 05/03/12 15:50</th> </ tr> <tr> <td>GLUCOSE (POC)</td> & lt;td>142 mg/dL</td> <td>70-99</td> </tr> <tr> <th colspan="10">GLUCOSE (POC) - 03/07 18:03</th> </tr> <tr> <td> GLUCOSE (POC)</td> <td>136 mg/dL</td> <td>70 -99</td> </tr> <tr> <th colspan=& quot;10">GLUCOSE (POC) - 05/03/12 18:03</th> </tr> <tr> <td>GLUCOSE (POC)</td> <td> 136 mg/dL</td> <td>70-99</td> </tr> <tr> <th colspan="10">POTASSIUM - 05/03/12 18 :05</th> </tr> <tr> <td>POTASSIUM&lt ;/td> <td>4.5 mmol/L</td> <td>3.5-5.3< /td> </tr> <tr> <th colspan="10& quot;>CREATININE - 05/03/12 18:05</th> </tr> <tr > <td>EST GFR (MDRD)</td> <td>> 60 mL/min</td> <td>> 59</td> </tr&gt ; <tr> <td>CREATININE</td> <td> 0.9 mg/dL</td> <td>0.8-1.3</td> </tr> <tr> <th colspan="10">POTASSIUM - 05/03/12 18:05& lt;/th> </tr><tr> <td>POTASSIUM</td> <td>4.5 mmol/L</td><td>3.5-5.3</td> &lt ;/tr> <tr> <th colspan="10">CREATININE - 05/03/12 18:05</th> </tr> <tr> <td >EST GFR (MDRD)</td> <td>> 60 mL/min</td> <td>> 59</td> </tr> <tr> <td>CREATININE</td> <td>0.9 mg/dL</td> <td>0.8-1.3</td> </tr> <tr> & lt;th colspan="10">GLUCOSE (POC) - 05/03/12 20:20</th> </tr> <tr> <td>GLUCOSE (POC)</td> <td>121 mg/dL</td> <td>70-99</td> </tr> <tr> <th colspan="10">GLUCOSE (POC) - 05/03/12 20:20</th> </tr> <tr> <td>GLUCOSE (POC)</td> <td>121 mg/dL</td> <td>70-99</td> </tr> <tr> & lt;th colspan="10">GLUCOSE (POC) - 05/03/12 23:38</th> </tr> <tr> <td>GLUCOSE (POC)</td> <td>125 mg/dL</td> <td>70-99</td> < /tr> <tr> <th colspan="10">GLUCOSE (POC ) - 05/03/1223:38</th> </tr> <tr> < td>GLUCOSE (POC)</td> <td>125 mg/dL</td> < td>70-99</td> </tr> <tr> <th colspan="10">GLUCOSE (POC) - 05/04/12 02:42</th> </ tr> <tr> <td>GLUCOSE (POC)</td> & lt;td>113 mg/dL</td> <td>70-99</td> </tr > <tr> <thcolspan="10">GLUCOSE (POC) - 05/04/12 02:42</th> </tr> <tr> <td& gt;GLUCOSE (POC)</td> <td>113 mg/dL</td> &lt ;td>70-99</td> </tr> <tr> <th colspan="10">CALCIUM IONIZED - 05/04/12 03:00</th> &lt ;/tr> <tr> <td>CALCIUM IONIZED</td> <td>4.4 mg/dL</td> <td>4.5-5.3</td> & lt;/tr> <tr> <th colspan="10">CBC - 07/15 03:00</th> </tr> <tr> <td> MEAN CELL HGB</td> <td>32.3 pg</td> <td>27.0- 33.0</td> </tr> <tr> <td>MEAN CELL HGB CONCENTRATION</td> <td>34.1 g/dl</td> <td>32.0-36.0</td> </tr> <tr> <td>MEAN CELL VOLUME</td> <td>94.7 fl</td> <td>80.0-100.0</td> </tr> <tr> <td>RED BLOOD CELL</td> <td>2.82 m/cumm</td > <td>4.00-6.00</td> </tr> <tr&gt ; <td>RED CELL DISTRIBUTION WIDTH</td> <td> 12.8 %</td> <td>11.0-15.6</td> </tr > <tr> <td>WHITE BLOOD CELL</td> & lt;td>19.1 k/cumm</td> <td>5.0-10.0</td> & lt;/tr> <tr> <td>HEMOGLOBIN</td> & lt;td>9.1 gm/dL</td> <td>14.0-18.0</td> &lt ;/tr> <tr> <td>HEMATOCRIT</td> &lt ;td>26.7 %</td> <td>40.0-54.0</td> </tr> <tr> <td>PLATELET COUNT</td> <td>56 k/cumm</td> <td>150-450</td> </tr> <tr> <th colspan="10"> METABOLIC PANEL, BASIC - 05/04/12 03:00</th> </tr> &lt ;tr> <td>POTASSIUM</td><td>4.3 mmol/L</td> <td>3.5-5.3</td> </tr> <tr> <td>EST GFR (MDRD)</td> <td>> 60 mL/min& lt;/td> <td>> 59</td> </tr> &lt ;tr> <td>ANION GAP</td> <td>8 mmol/L</ td> <td>5-15</td> </tr> <tr> <td>GLUCOSE</td> <td>122 mg/dL</td> <td>70-99</td> </tr> <tr> <td>CALCIUM</td> <td>8.1 mg/dL</td> <td>8.5-10.1</td> </tr> <tr> < td>BLOOD UREA NITROGEN</td> <td>24mg/dL</td> <td>7-20</td> </tr> <tr> &lt ;td>CREATININE</td> <td>1.0 mg/dL</td> & lt;td>0.8-1.3</td> </tr> <tr> <td >SODIUM</td> <td>135 mmol/L</td> <td& gt;135-148</td> </tr> <tr> <td>CHLORIDE& lt;/td> <td>104 mmol/L</td> <td>98-110&lt ;/td> </tr> <tr> <td>CARBON DIOXIDE& lt;/td><td>23 mmol/L</td> <td>21-32</td> </tr> <tr> <th colspan="10"> MAGNESIUM - 11// 03:00</th> </tr> <tr> <td>MAGNESIUM</td> <td>1.9 mg/dL</td> <td>1.8-2.4</td> </tr> <tr> & lt;th colspan="10">CALCIUM IONIZED - 05/04/12 03:00</th> </tr> <tr> <td>CALCIUM IONIZED</td> <td>4.4 mg/dL</td> <td>4.5-5.3</td> & lt;/tr> <tr> <th colspan="10">CBC - 07/15 03:00</th> </tr> <tr> <td> MEAN CELL HGB</td> <td>32.3 pg</td> <td& gt;27.0-33.0</td> </tr> <tr> <td> MEAN CELL HGB CONCENTRATION</td> <td>34.1 g/dl</td> <td>32.0-36.0</td> </tr> <tr> & lt;td>MEAN CELL VOLUME</td> <td>94.7 fl</td> <td>80.0-100.0</td> </tr> <tr> <td>RED BLOOD CELL</td> <td>2.82 m/cumm</td&gt ; <td>4.00-6.00</td> </tr> <tr> <td>RED CELL DISTRIBUTION WIDTH</td> <td> 12.8 %</td> <td>11.0-15.6</td> </tr > <tr> <td>WHITE BLOOD CELL</td> <td >19.1 k/cumm</td> <td>5.0-10.0</td> </tr > <tr> <td>HEMOGLOBIN</td> <td& gt;9.1 gm/dL</td> <td>14.0-18.0</td> </tr& gt; <tr> <td>HEMATOCRIT</td> <td> 26.7 %</td> <td>40.0-54.0</td> </tr > <tr> <td>PLATELET COUNT</td> &lt ;td>56 k/cumm</td> <td>150-450</td> </tr& gt; <tr> <th colspan="10">METABOLIC PANEL , BASIC- 05/04/12 03:00</th> </tr> <tr> <td>POTASSIUM</td> <td>4.3 mmol/L</td> <td>3.5-5.3</td> </tr> <tr> & lt;td>EST GFR (MDRD)</td> <td>> 60 mL/min</td& gt; <td>> 59</td> </tr> <tr& gt; <td>ANION GAP</td> <td>8 mmol/L</td& gt; <td>5-15</td> </tr> <tr> <td>GLUCOSE</td> <td>122mg/dL</td> <td>70-99</td> </tr> <tr> &lt ;td>CALCIUM</td> <td>8.1 mg/dL</td> < td>8.5-10.1</td> </tr> <tr> <td& gt;BLOOD UREA NITROGEN</td><td>24 mg/dL</td> <td& gt;7-20</td> </tr> <tr> <td> CREATININE</td> <td>1.0 mg/dL</td> <td&gt ;0.8-1.3</td> </tr> <tr> <td> SODIUM</td> <td>135 mmol/L</td> <td>135-148< /td> </tr> <tr> <td>CHLORIDE</td& gt; <td>104 mmol/L</td> <td>98-110</td&gt ; </tr> <tr> <td>CARBON DIOXIDE</td& gt; <td>23 mmol/L</td> <td>21-32</td> </tr> <tr> <th colspan="10"> MAGNESIUM - 05/04/12 03:00</th> </tr> <tr> & lt;td>MAGNESIUM</td> <td>1.9 mg/dL</td> & lt;td>1.8-2.4</td> </tr> <tr> < th colspan="10">GLUCOSE (POC) - 05/04/12 11:47</th> & lt;/tr> <tr> <td>GLUCOSE (POC)</td> <td>105 mg/dL</td> <td>70-99</td> &lt ;/tr> <tr> <th colspan="10">GLUCOSE ( POC) - 05/04/12 11:47</th> </tr> <tr> & lt;td>GLUCOSE (POC)</td> <td>105 mg/dL</td> <td>70-99</td> </tr> <tr> < th colspan="10">HEPARIN INDUCED PLATELET AB - 05/04/12 12:33</th > </tr> <tr> <td>HEPARIN INDUCED PLATELET AB</td> <td>0.073 OD</td> <td&gt ;0.000-0.400</td> </tr> <tr> <th colspan="10">HEPARIN INDUCED PLATELET AB - 05/04/12 12:33</th&gt ; </tr> <tr> <td>HEPARIN INDUCED PLATELET AB</td> <td>0.073 OD</td> <td&gt ;0.000-0.400</td> </tr> <tr> <th colspan="10">CALCIUM IONIZED - 05/05/12 06:03</th> &lt ;/tr> <tr> <td>CALCIUMIONIZED</td> <td>4.7 mg/dL</td> <td>4.5-5.3</td> </tr > <tr> <th colspan="10">METABOLIC PANEL , BASIC - 05/05/12 06:03</th> </tr> <tr> <td>POTASSIUM</td> <td>4.7 mmol/L</td> <td>3.5-5.3</td> </tr> <tr> &lt ;td>EST GFR (MDRD)</td> <td>> 60 mL/min</td&gt ; <td>> 59</td> </tr> <tr&gt ; <td>ANION GAP</td> <td>7 mmol/L</td&gt ; <td>5-15</td> </tr> <tr> <td>GLUCOSE</td> <td>95 mg/dL</td> <td>70-99</td> </tr> <tr> <td& gt;CALCIUM</td> <td>8.0 mg/dL</td> <td&gt ;8.5-10.1</td> </tr> <tr> <td> BLOOD UREA NITROGEN</td> <td>31 mg/dL</td> & lt;td>7-20</td> </tr> <tr> <td> CREATININE</td> <td>0.8 mg/dL</td> <td&gt ;0.8-1.3</td> </tr> <tr> <td> SODIUM</td> <td>139 mmol/L</td> <td> 135-148</td> </tr> <tr> <td> CHLORIDE</td> <td>105 mmol/L</td> <td> 98-110</td> </tr> <tr> <td> CARBON DIOXIDE</td> <td>27 mmol/L</td> <td >21-32</td> </tr> <tr> <th colspan=&quot ;10">MAGNESIUM - 05/05/12 06:03</th> </tr> &lt ;tr> <td>MAGNESIUM</td> <td>2.1 mg/dL< /td> <td>1.8-2.4</td> </tr> <tr& gt; <th colspan="10">CBC - 05/05/12 06:03</th> </tr> <tr><td>MEAN CELL HGB</td> & lt;td>34.3 pg</td> <td>27.0-33.0</td> </ tr> <tr> <td>MEAN CELL HGB CONCENTRATION</td& gt; <td>35.5 g/dl</td> <td>32.0-36.0</td& gt; </tr> <tr> <td>MEAN CELL VOLUME< /td> <td>96.8 fl</td> <td>80.0-100.0</ td> </tr> <tr> <td>RED BLOOD CELL&lt ;/td> <td>2.79 m/cumm</td> <td>4.00-6.00& lt;/td> </tr> <tr> <td>RED CELL DISTRIBUTION WIDTH</td> <td>13.6 %</td> <td>11.0-15.6</td> </tr> <tr> <td>WHITE BLOOD CELL</td> <td>12.0 k/cumm</td& gt; <td>5.0-10.0</td> </tr> <tr> <td>HEMOGLOBIN</td> <td>9.6 gm/dL</td&gt ; <td>14.0-18.0</td> </tr> <tr> <td>HEMATOCRIT</td> <td>27.0 %</ td> <td>40.0-54.0</td> </tr> <tr& gt; <td>PLATELET COUNT</td> <td>73 k/cumm&lt ;/td> <td>150-450</td> </tr> <tr& gt; <th colspan="10">CALCIUM IONIZED - 05/05/12 06:03& lt;/th> </tr> <tr> <td>CALCIUM IONIZED</td> <td>4.7 mg/dL</td> <td> 4.5-5.3</td> </tr> <tr> <th colspan= "10">METABOLIC PANEL, BASIC - 05/05/12 06:03</th> < /tr> <tr> <td>POTASSIUM</td> < td>4.7 mmol/L</td> <td>3.5-5.3</td> </tr > <tr> <td>EST GFR (MDRD)</td> &lt ;td>>60 mL/min</td> <td>> 59</td> </tr> <tr> <td>ANION GAP</td> <td>7 mmol/L</td> <td>5-15</td> < /tr> <tr> <td>GLUCOSE</td> <td& gt;95 mg/dL</td> <td>70-99</td> </tr> <tr> <td>CALCIUM</td> <td>8.0 mg/dL& lt;/td> <td>8.5-10.1</td> </tr> < tr> <td>BLOOD UREA NITROGEN</td> <td>31 mg/ dL</td> <td>7-20</td> </tr> < tr> <td>CREATININE</td> <td>0.8 mg/dL< /td> <td>0.8-1.3</td> </tr> <tr& gt; <td>SODIUM</td> <td>139 mmol/L</td&gt ; <td>135-148</td> </tr> <tr> <td>CHLORIDE</td> <td>105 mmol/L</td> < td>98-110</td> </tr> <tr> <td> CARBON DIOXIDE</td> <td>27 mmol/L</td> < td>21-32</td> </tr> <tr> <th colspan="10">MAGNESIUM - 05/05/12 06:03</th> </tr& gt; <tr> <td>MAGNESIUM</td> <td&gt ;2.1 mg/dL</td> <td>1.8-2.4</td> </tr> <tr> <th colspan="10">CBC - 05/05/12 06:03</th& gt; </tr> <tr> <td>MEAN CELL HGB</td > <td>34.3 pg</td> <td>27.0-33.0</td& gt; </tr> <tr> <td>MEAN CELL HGB CONCENTRATION</td> <td>35.5 g/dl</td> <td >32.0-36.0</td> </tr> <tr> <td> MEAN CELL VOLUME</td> <td>96.8 fl</td> < td>80.0-100.0</td> </tr> <tr> <td> RED BLOOD CELL</td> <td>2.79 m/cumm</td> &lt ;td>4.00-6.00</td> </tr> <tr> <td >RED CELL DISTRIBUTION WIDTH</td> <td>13.6 %< /td> <td>11.0-15.6</td> </tr> <tr& gt; <td>WHITE BLOOD CELL</td> <td>12.0 k/ cumm</td> <td>5.0-10.0</td> </tr> <tr> <td>HEMOGLOBIN</td> <td>9.6 gm/dL </td> <td>14.0-18.0</td> </tr> & lt;tr> <td>HEMATOCRIT</td> <td>27.0 %& lt;/td> <td>40.0-54.0</td> </tr> < tr> <td>PLATELET COUNT</td> <td>73 k/cumm </td> <td>150-450</td> </tr> < tr> <th colspan="10">GLUCOSE (POC) - 05/06/12 06:17& lt;/th> </tr> <tr> <td>GLUCOSE (POC)</ td> <td>133 mg/dL</td> <td>70-99</td& gt; </tr> <tr> <th colspan="10"& gt;GLUCOSE(POC) - 05/06/12 06:17</th> </tr> <tr&gt ; <td>GLUCOSE (POC)</td> <td>133 mg/dL</ td> <td>70-99</td> </tr> <tr> <th colspan="10">METABOLIC PANEL, BASIC - 05/06/12 08: 30</th> </tr> <tr> <td>POTASSIUM& lt;/td> <td>4.0 mmol/L</td> <td>3.5-5.3</td& gt; </tr> <tr> <td>EST GFR (MDRD)</ td> <td>> 60 mL/min</td> <td>& gt; 59</td> </tr> <tr> <td>ANION GAP</td> <td>6 mmol/L</td> <td>5-15&lt ;/td></tr> <tr> <td>GLUCOSE</td> <td>120 mg/dL</td> <td>70-99</td> </tr> <tr> <td>CALCIUM</td> &lt ;td>7.4 mg/dL</td> <td>8.5-10.1</td> </tr> <tr> <td>BLOOD UREA NITROGEN</td> & lt;td>21 mg/dL</td> <td>7-20</td> </tr& gt; <tr><td>CREATININE</td> <td>0.6 mg/ dL</td> <td>0.8-1.3</td> </tr> & lt;tr> <td>SODIUM</td> <td>138 mmol/L< /td> <td>135-148</td> </tr> <tr& gt; <td>CHLORIDE</td> <td>105 mmol/L</td> <td>98-110</td> </tr> <tr> <td>CARBON DIOXIDE</td> <td>27 mmol/L</td> <td>21-32</td> </tr> <tr> &lt ;th colspan="10">CBC - 11//12 08:30</th> </tr&gt ; <tr> <td>MEAN CELL HGB</td> <td> 34.2 pg</td> <td>27.0-33.0</td> </tr> <tr> <td>MEAN CELL HGB CONCENTRATION</td> <td>34.5 g/dl</td> <td>32.0-36.0</td> & lt;/tr> <tr> <td>MEAN CELL VOLUME</td> &lt ;td>99.0 fl</td> <td>80.0-100.0</td> </ tr> <tr> <td>RED BLOOD CELL</td> & lt;td>2.64 m/cumm</td> <td>4.00-6.00</td> </tr& gt; <tr> <td>RED CELL DISTRIBUTION WIDTH</td> <td>13.4 %</td> <td>11.0-15.6</ td> </tr> <tr> <td>WHITE BLOOD CELL& lt;/td> <td>7.6 k/cumm</td> <td>5.0-10.0</td > </tr><tr> <td>HEMOGLOBIN</td> <td>9.0 gm/dL</td><td>14.0-18.0</td> </tr > <tr> <td>HEMATOCRIT</td> <td& gt;26.1 %</td> <td>40.0-54.0</td> < /tr> <tr> <td>PLATELET COUNT</td> <td>66 k/cumm</td> <td>150-450</td> < /tr> <tr> <th colspan="10">METABOLIC PANEL, BASIC - 05/06/12 08:30</th> </tr> <tr> <td>POTASSIUM</td> <td>4.0 mmol/L</td> <td>3.5-5.3</td> </tr> <tr> &lt ;td>EST GFR (MDRD)</td> <td>> 60 mL/min</td&gt ; <td>> 59</td> </tr> <tr&gt ; <td>ANION GAP</td> <td>6 mmol/L</td&gt ; <td>5-15</td> </tr> <tr><td& gt;GLUCOSE</td> <td>120 mg/dL</td> <td&gt ;70-99</td> </tr> <tr> <td> CALCIUM</td> <td>7.4 mg/dL</td> <td> 8.5-10.1</td> </tr> <tr> <td>BLOOD UREA NITROGEN</td> <td>21 mg/dL</td> <td>7- 20</td> </tr> <tr> <td>CREATININE </td> <td>0.6 mg/dL</td> <td>0.8-1.3</td&gt ; </tr> <tr> <td>SODIUM</td> <td>138 mmol/L</td> <td>135-148</td> </tr> <tr> <td>CHLORIDE</td> & lt;td>105 mmol/L</td> <td>98-110</td> </ tr><tr> <td>CARBON DIOXIDE</td> <td&gt ;27 mmol/L</td> <td>21-32</td> </tr> & lt;tr> <th colspan="10">CBC - 11/ 08:30</th& gt; </tr> <tr> <td>MEAN CELL HGB</td > <td>34.2 pg</td> <td>27.0-33.0</td& gt; </tr> <tr> <td>MEAN CELL HGB CONCENTRATION</td> <td>34.5 g/dl</td> <td>32.0- 36.0</td> </tr> <tr> <td>MEAN CELL VOLUME</td> <td>99.0 fl</td> <td>80.0- 100.0</td> </tr> <tr> <td>RED BLOOD CELL</td> <td>2.64 m/cumm</td> <td& gt;4.00-6.00</td> </tr> <tr> <td>RED CELL DISTRIBUTION WIDTH</td> <td>13.4 %</td> <td>11.0-15.6</td> </tr> <tr> <td>WHITE BLOOD CELL</td> <td>7.6 k/cumm</ td> <td>5.0-10.0</td> </tr> <tr> <td>HEMOGLOBIN</td> <td>9.0 gm/dL</td&gt ; <td>14.0-18.0</td> </tr> <tr> <td>HEMATOCRIT</td> <td>26.1 %</ td> <td>40.0-54.0</td> </tr> <tr& gt; <td>PLATELET COUNT</td> <td>66 k/cumm&lt ;/td> <td>150-450</td> </tr> <tr& gt; <th colspan="10">GLUCOSE (POC) - 05/06/12 12:35< /th> </tr> <tr> <td>GLUCOSE (POC)&lt ;/td> <td>125 mg/dL</td> <td>70-99</td > </tr> <tr> <th colspan="10" >GLUCOSE (POC) - 05/06/12 12:35</th> </tr> <tr& gt; <td>GLUCOSE (POC)</td> <td>125 mg/dL< /td> <td>70-99</td> </tr> <tr&gt ; <th colspan="10">GLUCOSE (POC) - 05/06/12 17:55</th& gt; </tr> <tr> <td>GLUCOSE (POC)</td > <td>137 mg/dL</td> <td>70-99</td&gt ; </tr> <tr> <th colspan="10"&gt ;GLUCOSE (POC) - 05/06/12 17:55</th> </tr> <tr> <td>GLUCOSE (POC)</td> <td>137 mg/dL</td> <td>70-99</td> </tr> <tr> <th colspan="10">GLUCOSE (POC) - 05/07/12 00:22</th> </tr> <tr> <td>GLUCOSE (POC)</td> <td>151 mg/dL</td> <td>70-99</td> </tr> <tr> <th colspan="10"> GLUCOSE (POC) - 05/07/12 00:22</th> </tr> <tr> <td>GLUCOSE (POC)</td> <td>151 mg/dL</td& gt; <td>70-99</td> </tr> <tr> <th colspan="10">GLUCOSE (POC) - 05/07/12 05:28</th&gt ; </tr> <tr> <td>GLUCOSE (POC)</td& gt; <td>140 mg/dL</td> <td>70-99</td> </tr> <tr> <th colspan="10"> GLUCOSE (POC) - 05/07/12 05:28</th> </tr> <tr> <td>GLUCOSE (POC)</td> <td>140 mg/dL</td> <td>70-99</td> </tr> <tr> <th colspan="10">METABOLIC PANEL, BASIC - 05/07/12 06:15</ th> </tr> <tr> <td>POTASSIUM</td& gt; <td>3.4 mmol/L</td> <td>3.5-5.3</td& gt; </tr> <tr> <td>EST GFR (MDRD)</td&gt ; <td>> 60 mL/min</td> <td>> 59</td> </tr> <tr> <td>ANION GAP& lt;/td> <td>7 mmol/L</td> <td>5-15</td > </tr> <tr> <td>GLUCOSE</td> <td>132 mg/dL</td> <td>70-99</td> </ tr> <tr> <td>CALCIUM</td> <td& gt;7.8 mg/dL</td> <td>8.5-10.1</td> </tr&gt ; <tr> <td>BLOOD UREA NITROGEN</td> & lt;td>18 mg/dL</td> <td>7-20</td> </tr& gt; <tr> <td>CREATININE</td> <td> 0.8 mg/dL</td> <td>0.8-1.3</td> </tr> <tr> <td>SODIUM</td> <td>140 mmol/L&lt ;/td> <td>135-148</td> </tr> <tr& gt; <td>CHLORIDE</td> <td>105 mmol/L</td& gt; <td>98-110</td> </tr> <tr> <td>CARBONDIOXIDE</td> <td>28 mmol/L</td& gt; <td>21-32</td> </tr> <tr> & lt;th colspan="10">CBC - 11// 06:15</th> </tr& gt; <tr> <td>MEAN CELL HGB</td> < td>34.5 pg</td> <td>27.0-33.0</td> </tr& gt; <tr> <td>MEAN CELL HGB CONCENTRATION</td> <td>34.8 g/dl</td> <td>32.0-36.0</td> & lt;/tr> <tr> <td>MEAN CELLVOLUME</td> <td>99.2 fl</td> <td>80.0-100.0</td> &lt ;/tr> <tr> <td>RED BLOOD CELL</td> <td>2.64 m/cumm</td> <td>4.00-6.00</td> </tr> <tr> <td>RED CELL DISTRIBUTION WIDTH</td > <td>13.2 %</td> <td>11.0-15.6</ td> </tr> <tr> <td>WHITE BLOOD CELL& lt;/td> <td>7.9 k/cumm</td> <td>5.0-10.0& lt;/td> </tr> <tr> <td>HEMOGLOBIN</ td> <td>9.1 gm/dL</td> <td>14.0-18.0</ td> </tr> <tr> <td>HEMATOCRIT</td> <td>26.2 %</td> <td>40.0-54.0</td&gt ; </tr> <tr> <td>PLATELET COUNT</td& gt; <td>62 k/cumm</td> <td>150-450</td> </tr> <tr> <th colspan="10"> METABOLIC PANEL, BASIC - 05/07/12 06:15</th> </tr> &lt ;tr> <td>POTASSIUM</td> <td>3.4 mmol/L&lt ;/td> <td>3.5-5.3</td> </tr> <tr& gt; <td>EST GFR (MDRD)</td> <td>> 60 mL/min </td> <td>> 59</td> </tr> <tr> <td>ANION GAP</td> <td>7 mmol/L& lt;/td> <td>5-15</td> </tr> <tr> <td>GLUCOSE</td> <td>132 mg/dL</td> <td>70-99</td> </tr> <tr> <td& gt;CALCIUM</td> <td>7.8 mg/dL</td> <td&gt ;8.5-10.1</td> </tr> <tr> <td> BLOOD UREA NITROGEN</td> <td>18 mg/dL</td> & lt;td>7-20</td> </tr> <tr> <td&gt ;CREATININE</td> <td>0.8 mg/dL</td> <td& gt;0.8-1.3</td> </tr> <tr> <td>SODIUM& lt;/td> <td>140 mmol/L</td> <td>135-148& lt;/td> </tr> <tr> <td>CHLORIDE</ td> <td>105 mmol/L</td> <td>98-110</td > </tr> <tr> <td>CARBON DIOXIDE</td > <td>28 mmol/L</td> <td>21-32</td&gt ; </tr> <tr> <th colspan="10">CBC - 11 //12 06:15</th> </tr> <tr> <td> MEAN CELL HGB</td> <td>34.5 pg</td> <td& gt;27.0-33.0</td> </tr> <tr> <td> MEAN CELL HGB CONCENTRATION</td> <td>34.8 g/dl</td> <td>32.0-36.0</td> </tr> <tr> <td>MEAN CELL VOLUME</td> <td>99.2 fl</td> <td>80.0-100.0</td> </tr> <tr> & lt;td>RED BLOOD CELL</td> <td>2.64 m/cumm</td> <td>4.00-6.00</td> </tr> <tr> <td>RED CELL DISTRIBUTION WIDTH</td> <td>13.2 & amp;#37;</td> <td>11.0-15.6</td> </tr> <tr> <td>WHITE BLOOD CELL</td> <td&gt ;7.9 k/cumm</td> <td>5.0-10.0</td> </tr&gt ; <tr> <td>HEMOGLOBIN</td> <td>9.1 gm/dL</td> <td>14.0-18.0</td> </tr> <tr> <td>HEMATOCRIT</td> <td>26.2 &# 37;</td> <td>40.0-54.0</td> </tr> &lt ;tr> <td>PLATELET COUNT</td> <td>62 k/ cumm</td> <td>150-450</td> </tr> & lt;tr> <th colspan="10">GLUCOSE (POC) - 05/07/12 12: 26</th> </tr> <tr> <td>GLUCOSE (POC)</ td> <td>108 mg/dL</td> <td>70-99</td& gt; </tr> <tr> <th colspan="10"& gt;GLUCOSE (POC) - 05/07/12 12:26</th> </tr> <tr&gt ; <td>GLUCOSE (POC)</td> <td>108 mg/dL</ td> <td>70-99</td> </tr> <tr> <th colspan="10">GLUCOSE (POC) - 05/07/12 18:57</th > </tr> <tr> <td>GLUCOSE (POC)</ td> <td>147 mg/dL</td> <td>70-99</td& gt; </tr> <tr> <th colspan="10"&gt ;GLUCOSE (POC) - 05/07/12 18:57</th> </tr> <tr> <td>GLUCOSE (POC)</td> <td>147 mg/dL</td > <td>70-99</td> </tr> <tr> <th colspan="10">GLUCOSE (POC) - 05/07/12 20:48</th& gt; </tr> <tr> <td>GLUCOSE (POC)</td> <td>119 mg/dL</td> <td>70-99</td> </tr> <tr> <th colspan="10"> GLUCOSE (POC) - 05/07/12 20:48</th> </tr> <tr> <td>GLUCOSE (POC)</td> <td>119 mg/dL</td& gt; <td>70-99</td> </tr> <tr> <th colspan="10">GLUCOSE (POC) - 05/08/12 05:53</th&gt ; </tr> <tr> <td>GLUCOSE (POC)</td& gt; <td>120 mg/dL</td> <td>70-99</td> </tr> <tr> <th colspan="10"> GLUCOSE (POC) - 05/08/12 05:53</th> </tr> <tr> <td>GLUCOSE (POC)</td> <td>120 mg/dL</td& gt; <td>70-99</td> </tr> <tr> <th colspan="10">METABOLIC PANEL, BASIC - 05/08/12 06:30& lt;/th> </tr> <tr> <td>POTASSIUM< /td> <td>3.7 mmol/L</td> <td>3.5-5.3</ td> </tr> <tr> <td>EST GFR (MDRD)&lt ;/td> <td>> 60 mL/min</td> <td>& amp;gt; 59</td></tr> <tr> <td>ANION GAP& lt;/td> <td>7 mmol/L</td> <td>5-15</td > </tr> <tr> <td>GLUCOSE</td> <td>125 mg/dL</td> <td>70-99</td> </tr> <tr> <td>CALCIUM</td> <td>7.9 mg/dL</td> <td>8.5-10.1</td> </tr> <tr> <td>BLOOD UREA NITROGEN</td> <td>17 mg/dL</td> <td>7-20</td> </tr> <tr> <td>CREATININE</td> <td>0.7 mg/dL</td> <td>0.8-1.3</td> </tr> <tr> <td>SODIUM</td> <td> 136 mmol/L</td> <td>135-148</td> </tr> <tr> <td>CHLORIDE</td> <td>104 mmol/L</td> <td>98-110</td> </tr> <tr> <td>CARBON DIOXIDE</td> <td>25 mmol/L</td> <td>21-32</td> </tr> <tr> <th colspan="10">METABOLIC PANEL, BASIC - /12 06:30</th> </tr> <tr> <td> POTASSIUM</td> <td>3.7 mmol/L</td> <td&gt ;3.5-5.3</td> </tr> <tr> <td>EST GFR (MDRD)</td> <td>> 60 mL/min</td> <td>> 59</td> </tr> <tr> & lt;td>ANION GAP</td> <td>7 mmol/L</td> & lt;td>5-15</td> </tr> <tr> <td&gt ;GLUCOSE</td> <td>125 mg/dL</td> <td>70-99 </td> </tr> <tr> <td>CALCIUM</ td> <td>7.9 mg/dL</td> <td>8.5-10.1</ td> </tr> <tr> <td>BLOOD UREA NITROGEN</td> <td>17 mg/dL</td> <td>7- 20</td> </tr> <tr> <td>CREATININE </td> <td>0.7 mg/dL</td> <td>0.8-1.3& lt;/td> </tr> <tr> <td>SODIUM</td > <td>136 mmol/L</td> <td>135-148</td& gt; </tr> <tr> <td>CHLORIDE</td> <td>104 mmol/L</td> <td>98-110</td> </tr> <tr> <td>CARBON DIOXIDE</td&gt ; <td>25 mmol/L</td> <td>21-32</td> </tr> <tr> <th colspan="10"> GLUCOSE (POC) - 05/08/12 12:14</th> </tr> <tr> <td>GLUCOSE (POC)</td> <td>124 mg/dL</td&gt ; <td>70-99</td> </tr><tr> < th colspan="10">GLUCOSE (POC) - 05/08/12 12:14</th> </tr& gt; <tr> <td>GLUCOSE (POC)</td> < td>124 mg/dL</td> <td>70-99</td> </tr&gt ; <tr> <th colspan="10">GLUCOSE (POC) - 18:23</th> </tr> <tr> <td> GLUCOSE (POC)</td> <td>120 mg/dL</td> <td >70-99</td> </tr> <tr> <th colspan="10">GLUCOSE (POC) - 05/08/12 18:23</th> </ tr> <tr> <td>GLUCOSE (POC)</td> & lt;td>120 mg/dL</td> <td>70-99</td> </tr& gt; <tr> <th colspan="10">GLUCOSE (POC) - 05/09/12 06:04</th> </tr> <tr> <td& gt;GLUCOSE (POC)</td> <td>127 mg/dL</td> < td>70-99</td> </tr> <tr> <th colspan=& quot;10">GLUCOSE (POC) - 05/09/12 06:04</th> </tr> & lt;tr> <td>GLUCOSE (POC)</td> <td>127 mg/ dL</td> <td>70-99</td> </tr> < tr> <th colspan="10">CBC - 05/09/12 08:01</th&gt ; </tr> <tr> <td>COMMENT</td> <td>REVIEWED </td> <td /> </tr> &lt ;tr> <td>MEAN CELL HGB</td> <td>34.0pg&lt ;/td> <td>27.0-33.0</td> </tr> < tr> <td>MEAN CELL HGB CONCENTRATION</td> <td >34.3 g/dl</td> <td>32.0-36.0</td> </tr& gt; <tr> <td>MEAN CELL VOLUME</td> & lt;td>99.1 fl</td> <td>80.0-100.0</td> < /tr> <tr> <td>RED BLOOD CELL</td> <td>2.97 m/cumm</td> <td>4.00-6.00</td> </tr> <tr> <td>RED CELL DISTRIBUTION WIDTH< /td> <td>13.4 %</td> <td>11.0- 15.6</td> </tr> <tr> <td>WHITE BLOOD CELL</td> <td>7.1 k/cumm</td> <td& gt;5.0-10.0</td> </tr> <tr> <td> HEMOGLOBIN</td> <td>10.1 gm/dL</td> <td& gt;14.0-18.0</td> </tr> <tr> <td> HEMATOCRIT</td> <td>29.5 %</td> < td>40.0-54.0</td> </tr> <tr> <td& gt;PLATELET COUNT</td><td>61 k/cumm</td> <td> 150-450</td> </tr> <tr> <th colspan= "10">METABOLIC PANEL, BASIC - 05/09/12 08:01</th> </tr& gt; <tr> <td>POTASSIUM</td> <td&gt ;4.1 mmol/L</td> <td>3.5-5.3</td> </tr> <tr> <td>EST GFR (MDRD)</td> <td& gt;> 60 mL/min</td> <td>> 59</td> </tr> <tr> <td>ANION GAP</td> <td>7 mmol/L</td> <td>5-15</td> </tr& gt; <tr> <td>GLUCOSE</td> <td> 90 mg/dL</td> <td>70-99</td> </tr> <tr> <td>CALCIUM</td> <td>8.0 mg/dL</ td> <td>8.5-10.1</td> </tr> <tr& gt; <td>BLOOD UREA NITROGEN</td> <td>15 mg/ dL</td> <td>7-20</td> </tr> <tr& gt; <td>CREATININE</td> <td>0.6 mg/dL</td > <td>0.8-1.3</td> </tr> <tr> <td>SODIUM</td> <td>135 mmol/L</td> <td>135-148</td> </tr> <tr> <td>CHLORIDE</td> <td>103 mmol/L</td> <td>98-110</td> </tr> <tr> <td>CARBON DIOXIDE</td> <td>25 mmol/L</td> <td>21-32</td> </tr> <tr> & lt;thcolspan="10">CBC - 05/09/12 08:01</th> </tr&gt ; <tr> <td>COMMENT</td> <td>REVIEWED & lt;/td> <td /></tr> <tr> <td&gt ;MEAN CELL HGB</td> <td>34.0 pg</td> <td& gt;27.0-33.0</td> </tr> <tr> <td> MEAN CELL HGB CONCENTRATION</td> <td>34.3 g/dl</td> <td>32.0-36.0</td> </tr> <tr> <td>MEAN CELL VOLUME</td> <td>99.1 fl</td& gt; <td>80.0-100.0</td> </tr> <tr&gt ; <td>RED BLOOD CELL</td> <td>2.97 m/cumm&lt ;/td> <td>4.00-6.00</td> </tr> < tr> <td>RED CELL DISTRIBUTION WIDTH</td> <td >13.4 %</td> <td>11.0-15.6</td> &lt ;/tr> <tr> <td>WHITE BLOOD CELL</td> <td>7.1 k/cumm</td> <td>5.0-10.0</td> </tr> <tr> <td>HEMOGLOBIN</td> <td>10.1 gm/dL</td> <td>14.0-18.0</td> </tr> <tr> <td>HEMATOCRIT</td> <td>29.5 %</td> <td>40.0-54.0</td&gt ; </tr> <tr> <td>PLATELET COUNT</td& gt; <td>61 k/cumm</td> <td>150-450</td&gt ; </tr> <tr> <th colspan="10"&gt ;METABOLIC PANEL, BASIC - 05/09/12 08:01</th> </tr> <tr&gt ; <td>POTASSIUM</td> <td>4.1 mmol/L</td& gt; <td>3.5-5.3</td> </tr> <tr> <td>EST GFR (MDRD)</td> <td>> 60 mL/ min</td> <td>> 59</td> </tr> <tr> <td>ANION GAP</td> <td>7 mmol/L&lt ;/td> <td>5-15</td> </tr> <tr&gt ; <td>GLUCOSE</td> <td>90 mg/dL</td> <td>70-99</td> </tr> <tr> <td>CALCIUM</td> <td>8.0 mg/dL</td> <td& gt;8.5-10.1</td> </tr> <tr> <td> BLOOD UREA NITROGEN</td> <td>15 mg/dL</td> <td& gt;7-20</td> </tr> <tr> <td> CREATININE</td> <td>0.6 mg/dL</td> <td&gt ;0.8-1.3</td> </tr> <tr> <td> SODIUM</td> <td>135 mmol/L</td> <td>135- 148</td> </tr> <tr> <td>CHLORIDE& lt;/td> <td>103 mmol/L</td> <td>98-110&lt ;/td> </tr> <tr> <td>CARBON DIOXIDE& lt;/td> <td>25 mmol/L</td> <td>21-32</ td> </tr> <tr> <th colspan="10& quot;>GLUCOSE (POC) - 05/09/12 12:20</th> </tr> &lt ;tr> <td>GLUCOSE (POC)</td> <td>113 mg/dL </td> <td>70-99</td> </tr> <tr > <th colspan="10">GLUCOSE (POC) - 05/09/12 12:20&lt ;/th> </tr> <tr> <td>GLUCOSE (POC)& lt;/td> <td>113 mg/dL</td> <td>70-99</ td> </tr> <tr> <th colspan="10"> GLUCOSE (POC) - 05/09/12 19:28</th> </tr> <tr> <td>GLUCOSE (POC)</td> <td>124 mg/dL</td> <td>70-99</td> </tr> <tr> <th colspan="10">GLUCOSE (POC) - 05/09/12 19:28</th> </tr> <tr> <td>GLUCOSE (POC)</td> <td>124 mg/dL</td> <td>70-99</td> </tr> <tr> <th colspan="10"> GLUCOSE (POC) - 05/10/12 02:37</th> </tr> <tr> <td>GLUCOSE (POC)</td> <td>103 mg/dL</td& gt; <td>70-99</td> </tr> <tr> <th colspan="10">GLUCOSE (POC) - 05/10/12 02:37</th&gt ; </tr> <tr> <td>GLUCOSE (POC)</td& gt; <td>103 mg/dL</td> <td>70-99</td> </tr> <tr> <th colspan="10"> GLUCOSE (POC) - 05/10/12 06:11</th> </tr> <tr> <td>GLUCOSE (POC)</td> <td>105 mg/dL</td> <td>70-99</td> </tr> <tr> <th colspan="10">GLUCOSE (POC) - 05/10/12 06:11</th> </tr> <tr> <td>GLUCOSE (POC)</td> <td>105 mg/dL</td> <td>70-99</td> </tr> <tr> <th colspan="10"> METABOLIC PANEL, BASIC - 05/10/12 06:15</th> </tr> <tr&gt ; <td>POTASSIUM</td> <td>4.3 mmol/L</td& gt; <td>3.5-5.3</td> </tr> <tr> & lt;td>EST GFR (MDRD)</td> <td>> 60 mL/min</td& gt; <td>> 59</td> </tr> <tr& gt; <td>ANION GAP</td> <td>8 mmol/L</td& gt; <td>5-15</td> </tr> <tr> <td>GLUCOSE</td> <td>104 mg/dL</td> <td>70-99</td> </tr> <tr> &lt ;td>CALCIUM</td> <td>7.5 mg/dL</td> < td>8.5-10.1</td> </tr> <tr> <td& gt;BLOOD UREA NITROGEN</td> <td>15 mg/dL</td> <td>7-20</td> </tr> <tr> < td>CREATININE</td> <td>0.7 mg/dL</td> &lt ;td>0.8-1.3</td> </tr> <tr> <td& gt;SODIUM</td> <td>133 mmol/L</td> <td&gt ;135-148</td> </tr> <tr> <td> CHLORIDE</td> <td>102 mmol/L</td> <td>98-110& lt;/td> </tr> <tr> <td>CARBON DIOXIDE</td> <td>23 mmol/L</td><td>21-32</td > </tr> <tr> <th colspan="10" >CBC - 05/10/ 06:15</th> </tr> <tr> <td>MEAN CELL HGB</td> <td>34.4 pg</td> <td>27.0-33.0</td> </tr> <tr> < td>MEAN CELL HGB CONCENTRATION</td> <td>35.0 g/dl</td > <td>32.0-36.0</td> </tr> <tr&gt ; <td>MEAN CELL VOLUME</td> <td>98.2 fl</ td> <td>80.0-100.0</td> </tr> <tr > <td>RED BLOOD CELL</td> <td>2.58 m/cumm </td> <td>4.00-6.00</td> </tr> & lt;tr> <td>RED CELL DISTRIBUTION WIDTH</td> &lt ;td>13.6 %</td> <td>11.0-15.6</td> </tr> <tr> <td>WHITE BLOOD CELL</td> <td>6.5 k/cumm</td> <td>5.0-10.0</td> &lt ;/tr> <tr> <td>HEMOGLOBIN</td> &lt ;td>8.9 gm/dL</td> <td>14.0-18.0</td> </ tr> <tr> <td>HEMATOCRIT</td> < td>25.3 %</td> <td>40.0-54.0</td> & lt;/tr> <tr> <td>PLATELET COUNT</td> <td>60 k/cumm</td> <td>150-450</td> </tr> <tr> <th colspan="10"> METABOLIC PANEL, BASIC - 05/10/12 06:15</th> </tr> &lt ;tr> <td>POTASSIUM</td> <td>4.3 mmol/L&lt ;/td> <td>3.5-5.3</td> </tr> <tr& gt; <td>EST GFR (MDRD)</td> <td>>60 mL/min</td> <td>> 59</td> </tr> <tr> <td>ANION GAP</td> <td>8 mmol/L</td> <td>5-15</td> </tr> & lt;tr> <td>GLUCOSE</td> <td>104 mg/dL< /td> <td>70-99</td> </tr> <tr&gt ; <td>CALCIUM</td> <td>7.5 mg/dL</td> <td>8.5-10.1</td> </tr> <tr> <td>BLOOD UREA NITROGEN</td> <td>15 mg/dL</td& gt; <td>7-20</td> </tr> <tr> <td>CREATININE</td> <td>0.7 mg/dL</td> <td>0.8-1.3</td> </tr> <tr> <td>SODIUM</td> <td>133 mmol/L</td> <td>135-148</td> </tr> <tr> < td>CHLORIDE</td> <td>102 mmol/L</td> <td> 98-110</td> </tr> <tr> <td> CARBON DIOXIDE</td> <td>23 mmol/L</td> < td>21-32</td> </tr> <tr> <th colspan="10">CBC - 05/10/ 06:15</th> </tr> <tr> <td>MEAN CELL HGB</td> <td> 34.4 pg</td> <td>27.0-33.0</td> </tr> <tr> <td>MEAN CELL HGB CONCENTRATION</td> < td>35.0 g/dl</td> <td>32.0-36.0</td> </ tr> <tr> <td>MEAN CELL VOLUME</td> <td>98.2 fl</td> <td>80.0-100.0</td> & lt;/tr> <tr> <td>RED BLOOD CELL</td> <td>2.58 m/cumm</td> <td>4.00-6.00</td> </tr> <tr> <td>RED CELL DISTRIBUTION WIDTH</td> <td>13.6 %</td><td>11.0-15.6 </td> </tr> <tr> <td>WHITE BLOOD CELL</td> <td>6.5 k/cumm</td> <td>5.0- 10.0</td></tr> <tr> <td>HEMOGLOBIN</ td> <td>8.9 gm/dL</td> <td>14.0-18.0</ td> </tr> <tr> <td>HEMATOCRIT</td > <td>25.3 %</td> <td>40.0-54.0& lt;/td> </tr> <tr> <td>PLATELET COUNT</td> <td>60 k/cumm</td> <td>150-450</ td> </tr> <tr> <th colspan="10& quot;>GLUCOSE (POC) - 05/10/12 11:55</th> </tr> &lt ;tr> <td>GLUCOSE (POC)</td> <td>104 mg/dL </td> <td>70-99</td> </tr> <tr > <th colspan="10">GLUCOSE (POC) - 05/10/12 11:55&lt ;/th> </tr> <tr> <td>GLUCOSE (POC)& lt;/td> <td>104 mg/dL</td> <td>70-99</ td> </tr> <tr> <th colspan="10& quot;>HEPATIC FUNCTION PANEL - 05/10/12 16:00</th> </tr> <tr> <td>BILI UNCONJUGATED</td> < td>1.1 mg/dL</td> <td>0.0-0.7</td> </tr& gt; <tr> <td>AST/SGOT</td> <td> 31 Units/L</td> <td>10-37</td> </tr> <tr> <td>ALT/SGPT</td> <td>28 Units/ L</td> <td>< 66</td> </tr> <tr> <td>TOTAL PROTEIN</td> <td>5.3 gm /dL</td> <td>6.4-8.2</td> </tr> <tr& gt; <td>ALBUMIN</td> <td>2.7 gm/dL</td&gt ; <td>3.4-5.0</td> </tr> <tr> <td>BILI TOTAL</td> <td>1.5 mg/dL</td> <td>0.0-1.0</td> </tr> <tr> <td>ALKALINE PHOSPHATASE TOTAL</td> <td>72 Units /L</td> <td>50-136</td> </tr> &lt ;tr> <td>BILI CONJUGATED</td> <td>0.4 mg/ dL</td> <td>0.0-0.3</td> </tr> & lt;tr> <th colspan="10">IRON W/ BINDING CAPACITY - 05/10/12 16:00</th> </tr> <tr> <td& gt;IRON SATURATION</td> <td>12 % SAT</td> <td>11-46</td> </tr> <tr> <td>IRON BINDING CAPACITY, TOTAL</td> <td>228 mcg/dL& lt;/td> <td>250-450</td> </tr> <tr& gt; <td>IRON</td> <td>28 mcg/dL</td>& lt;td>35-150</td> </tr> <tr> <th colspan="10">TRANSFERRIN - 05/10/12 16:00</th> </tr > <tr> <td>TRANSFERRIN</td> <td >167 mg/dL</td> <td>200-360</td> </tr&gt ; <tr> <th colspan="10">FERRITIN - 16:00</th> </tr> <tr> <td> FERRITIN</td><td>156 ng/mL</td> <td>26-388</ td> </tr> <tr> <th colspan="10& quot;>PREALBUMIN - 05/10/12 16:00</th> </tr> <tr > <td>PREALBUMIN</td> <td>11 mg/dL</td > <td>20-40</td> </tr> <tr> <th colspan="10">HEPATITIS PANEL-ACUTE - 05/10/12 16:00& lt;/th> </tr> <tr> <td>AB HEPATITIS A IGM</td> <td>NEGATIVE </td> <td> NEGATIVE</td> </tr> <tr> <td>AG HEPATITIS B SURF.</td> <td>NEGATIVE </td> & lt;td>NEGATIVE</td> </tr> <tr> < td>AB HEPATITIS B CORE IGM</td> <td>NEGATIVE </td&gt ; <td>NEGATIVE</td> </tr> <tr> <td>AB HEPATITIS C</td> <td>NEGATIVE </td> <td>NEGATIVE</td> </tr> <tr> <th colspan="10">HEPATIC FUNCTION PANEL - 05/10/12 16:00& lt;/th> </tr> <tr> <td>BILI UNCONJUGATED</td> <td>1.1 mg/dL</td> <td& gt;0.0-0.7</td> </tr> <tr> <td> AST/SGOT</td> <td>31 Units/L</td> <td> 10-37</td> </tr> <tr> <td>ALT/SGPT& lt;/td> <td>28 Units/L</td> <td>< 66</td> </tr> <tr> <td>TOTAL PROTEIN</td> <td>5.3 gm/dL</td> <td>6.4- 8.2</td> </tr> <tr> <td>ALBUMIN</td& gt; <td>2.7 gm/dL</td> <td>3.4-5.0</td&gt ; </tr> <tr> <td>BILI TOTAL</td> <td>1.5 mg/dL</td> <td>0.0-1.0</td> </tr> <tr> <td>ALKALINE PHOSPHATASE TOTAL</td> <td>72 Units/L</td> <td>50- 136</td> </tr> <tr> <td>BILI CONJUGATED</td> <td>0.4 mg/dL</td> <td&gt ;0.0-0.3</td> </tr> <tr> <th colspan ="10">IRON W/ BINDING CAPACITY - 05/10/12 16:00</th> & lt;/tr> <tr> <td>IRON SATURATION</td> <td>12 % SAT</td> <td>11-46</td> </tr> <tr> <td>IRON BINDING CAPACITY, TOTAL</td> <td>228 mcg/dL</td> <td>250 -450</td> </tr> <tr> <td>IRON</ td> <td>28 mcg/dL</td><td>35-150</td> </tr> <tr> <th colspan="10"> TRANSFERRIN - 05/10/12 16:00</th> </tr> <tr> <td>TRANSFERRIN</td> <td>167 mg/dL</td> <td>200-360</td> </tr> <tr> <th colspan="10">FERRITIN - 05/10/12 16:00</th> </tr> <tr> <td>FERRITIN</td><td& gt;156 ng/mL</td> <td>26-388</td> </tr> <tr> <th colspan="10">PREALBUMIN - 16:00</th> </tr> <tr> <td> PREALBUMIN</td> <td>11 mg/dL</td> <td> 20-40</td> </tr> <tr> <th colspan=& quot;10">HEPATITIS PANEL-ACUTE - 05/10/12 16:00</th> </ tr> <tr> <td>AB HEPATITIS A IGM</td> <td>NEGATIVE </td> <td>NEGATIVE</td> </tr> <tr> <td>AG HEPATITIS B SURF.</td&gt ; <td>NEGATIVE </td> <td>NEGATIVE</td&gt ; </tr> <tr> <td>AB HEPATITIS B CORE IGM</td> <td>NEGATIVE </td> <td> NEGATIVE</td> </tr> <tr> <td>AB HEPATITIS C</td> <td>NEGATIVE </td> <td& gt;NEGATIVE</td> </tr> <tr> <th colspan="10">GLUCOSE (POC) - 05/10/12 17:20</th> </ tr> <tr> <td>GLUCOSE (POC)</td> & lt;td>103 mg/dL</td> <td>70-99</td> </tr> <tr> <th colspan="10">GLUCOSE (POC) - 01/12 17:20</th> </tr> <tr> <td> GLUCOSE (POC)</td> <td>103 mg/dL</td> <td>70 -99</td> </tr> <tr> <th colspan=& quot;10">GLUCOSE (POC) - 05/11/12 05:26</th> </tr> <tr> <td>GLUCOSE (POC)</td> <td> 106 mg/dL</td> <td>70-99</td> </tr> <tr> <th colspan="10">GLUCOSE (POC) - 05:26</th> </tr> <tr> <td> GLUCOSE (POC)</td> <td>106 mg/dL</td> <td >70-99</td> </tr> <tr> <th colspan="10">CBC - 05/11/12 06:00</th> </tr> <tr> <td>MEAN CELL HGB</td> <td> 34.3 pg</td> <td>27.0-33.0</td> </tr> <tr> <td>MEAN CELL HGB CONCENTRATION</td> <td>35.1 g/dl</td> <td>32.0-36.0</td> </tr> <tr> <td>MEAN CELL VOLUME</td> <td>97.6 fl</td> <td>80.0-100.0</td> </tr> <tr> <td>RED BLOOD CELL</td&gt ; <td>2.56 m/cumm</td> <td>4.00-6.00</td& gt; </tr> <tr> <td>RED CELL DISTRIBUTION WIDTH</td> <td>13.8 %</td> <td>11.0-15.6</td> </tr> <tr> <td>WHITE BLOOD CELL</td> <td>7.2 k/cumm</td&gt ; <td>5.0-10.0</td> </tr> <tr> <td>HEMOGLOBIN</td> <td>8.8 gm/dL</td> <td>14.0-18.0</td> </tr> <tr> <td>HEMATOCRIT</td> <td>25.0 %</td > <td>40.0-54.0</td> </tr> <tr&gt ; <td>PLATELET COUNT</td> <td>69 k/cumm</ td> <td>150-450</td> </tr> <tr&gt ; <th colspan="10">METABOLIC PANEL, BASIC - 05/11/12 06 :00</th> </tr> <tr> <td>POTASSIUM </td> <td>4.5 mmol/L</td> <td>3.5-5.3& lt;/td> </tr> <tr> <td>EST GFR (MDRD )</td> <td>> 60 mL/min</td> <td&gt ;> 59</td> </tr> <tr> <td>ANION GAP</td> <td>8 mmol/L</td> <td>5-15&lt ;/td> </tr> <tr> <td>GLUCOSE</td& gt; <td>98 mg/dL</td> <td>70-99</td> </tr> <tr><td>CALCIUM</td> <td >8.0 mg/dL</td> <td>8.5-10.1</td> </tr& gt; <tr> <td>BLOOD UREA NITROGEN</td> <td& gt;16 mg/dL</td> <td>7-20</td> </tr> <tr> <td>CREATININE</td> <td>0.7 mg/dL</td> <td>0.8-1.3</td> </tr> <tr> <td>SODIUM</td> <td>134 mmol/L</td& gt; <td>135-148</td> </tr> <tr> <td>CHLORIDE</td> <td>104 mmol/L</td> <td>98-110</td> </tr> <tr> <td>CARBON DIOXIDE</td> <td>22 mmol/L</td&gt ; <td>21-32</td> </tr> <tr> <th colspan="10">PHOSPHORUS - 05/11/12 06:00</th> </tr> <tr> <td>PHOSPHORUS</td> <td>3.1 mg/dL</td> <td>2.5-4.9</td> < /tr> <tr> <th colspan="10"> TRIGLYCERIDES - 05/11/12 06:00</th> </tr> <tr> <td>TRIGLYCERIDES</td> <td>52 mg/dL</td& gt;<td>< 150</td> </tr> <tr> <th colspan="10">MAGNESIUM - 05/11/12 06:00</th> </tr> <tr> <td>MAGNESIUM</td> <td>2.1 mg/dL</td> <td>1.8-2.4</td> & lt;/tr> <tr> <th colspan="10"> PREALBUMIN - 05/11/12 06:00</th> </tr> <tr> <td>PREALBUMIN</td> <td>11 mg/dL</td> <td>20-40</td> </tr> <tr> < th colspan="10">CBC - 05/11/12 06:00</th> </tr> <tr> <td>MEAN CELL HGB</td> <td&gt ;34.3 pg</td> <td>27.0-33.0</td> </tr> <tr> <td>MEAN CELL HGB CONCENTRATION</td> <td>35.1 g/dl</td> <td>32.0-36.0</td> </tr> <tr> <td>MEAN CELL VOLUME</td> <td>97.6 fl</td> <td>80.0-100.0</td> </tr> <tr> <td>RED BLOOD CELL</td> <td>2.56 m/cumm</td> <td>4.00-6.00</td> </tr> <tr> <td>RED CELLDISTRIBUTION WIDTH& lt;/td> <td>13.8 %</td> <td>11.0- 15.6</td> </tr> <tr> <td>WHITE BLOOD CELL</td> <td>7.2 k/cumm</td> <td> 5.0-10.0</td> </tr> <tr> <td>HEMOGLOBIN </td> <td>8.8 gm/dL</td> <td>14.0-18.0</td& gt; </tr> <tr> <td>HEMATOCRIT</td&gt ; <td>25.0 %</td> <td>40.0-54.0</ td> </tr> <tr> <td>PLATELET COUNT</td&gt ; <td>69 k/cumm</td> <td>150-450</td> </tr> <tr> <th colspan="10"> METABOLIC PANEL, BASIC - 05/11/12 06:00</th> </tr> < tr> <td>POTASSIUM</td> <td>4.5 mmol/L< /td> <td>3.5-5.3</td> </tr> <tr> <td>EST GFR (MDRD)</td> <td>> 60 mL/ min</td> <td>> 59</td> </tr> <tr> <td>ANION GAP</td> <td>8 mmol /L</td> <td>5-15</td> </tr> < tr> <td>GLUCOSE</td> <td>98 mg/dL</td> <td>70-99</td> </tr> <tr> & lt;td>CALCIUM</td> <td>8.0 mg/dL</td> &lt ;td>8.5-10.1</td> </tr> <tr> <td> BLOOD UREA NITROGEN</td> <td>16 mg/dL</td> & lt;td>7-20</td> </tr> <tr> <td&gt ;CREATININE</td> <td>0.7 mg/dL</td> <td>0.8- 1.3</td> </tr> <tr> <td>SODIUM&lt ;/td> <td>134 mmol/L</td> <td>135-148< /td> </tr> <tr> <td>CHLORIDE</td& gt; <td>104 mmol/L</td> <td>98-110</td> </tr> <tr> <td>CARBON DIOXIDE</td> <td>22 mmol/L</td> <td>21-32</td> </ tr> <tr> <th colspan="10">PHOSPHORUS - 05/11/12 06:00</th> </tr> <tr> <td& gt;PHOSPHORUS</td> <td>3.1 mg/dL</td> <td >2.5-4.9</td> </tr> <tr> <th colspan="10">TRIGLYCERIDES - 05/11/12 06:00</th> </ tr> <tr> <td>TRIGLYCERIDES</td> & lt;td>52 mg/dL</td> <td>< 150</td> & lt;/tr> <tr> <th colspan="10"> MAGNESIUM - 05/11/12 06:00</th> </tr> <tr> <td>MAGNESIUM</td> <td>2.1 mg/dL</td> <td>1.8-2.4</td> </tr> <tr> <th colspan="10">PREALBUMIN - 05/11/12 06:00</th> & lt;/tr> <tr> <td>PREALBUMIN</td> & lt;td>11 mg/dL</td> <td>20-40</td> </tr& gt; <tr> <th colspan="10">GLUCOSE (POC) - 05/11/12 12:23</th> </tr> <tr> <td& gt;GLUCOSE (POC)</td> <td>116 mg/dL</td> &lt ;td>70-99</td> </tr> <tr> <th colspan ="10">GLUCOSE (POC) - 05/11/1212:23</th> </tr> <tr> <td>GLUCOSE (POC)</td> <td> 116 mg/dL</td> <td>70-99</td> </tr> <tr> <th colspan="10">PROTHROMBIN TIME WITH INR - 05/11/12 13:21</th> </tr> <tr> & lt;td>INTERNATIONAL NORMAL RATIO</td> <td>1.3 </td> <td>0.9-1.1</td> </tr> <tr> <td>PROTHROMBIN TIME</td> <td>13.3 sec</td> <td>9.3-12.2</td> </tr> <tr> < th colspan="10">PROTHROMBIN TIME WITH INR - 05/11/12 13:21</th& gt; </tr> <tr> <td>INTERNATIONAL NORMAL RATIO</td> <td>1.3 </td> <td>0.9-1.1& lt;/td> </tr> <tr> <td>PROTHROMBIN TIME</td> <td>13.3 sec</td> <td>9.3- 12.2</td> </tr> <tr> <th colspan=& quot;10">GLUCOSE (POC) - 05/11/12 18:10</th> </tr> <tr> <td>GLUCOSE (POC)</td> <td> 109 mg/dL</td> <td>70-99</td> </tr> <tr> <th colspan="10">GLUCOSE (POC) - 05/11/12 18:10</th> </tr> <tr> <td> GLUCOSE (POC)</td> <td>109 mg/dL</td> <td >70-99</td> </tr> <tr> <th colspan="10">GLUCOSE (POC) - 05/12/12 06:38</th> </ tr> <tr> <td>GLUCOSE (POC)</td> <td&gt ;118 mg/dL</td> <td>70-99</td> </tr> <tr> <th colspan="10">GLUCOSE (POC) - 06:38</th> </tr> <tr> <td> GLUCOSE (POC)</td> <td>118 mg/dL</td> <td >70-99</td> </tr> <tr> <th colspan="10">METABOLIC PANEL, BASIC - 05/12/1206:50</th> </tr> <tr> <td>POTASSIUM</td> < td>4.3 mmol/L</td> <td>3.5-5.3</td> </tr > <tr> <td>EST GFR (MDRD)</td> &lt ;td>> 60 mL/min</td> <td>> 59</td> </tr> <tr> <td>ANION GAP</td> <td>9 mmol/L</td> <td>5-15</td> & lt;/tr> <tr> <td>GLUCOSE</td> < td>109 mg/dL</td> <td>70-99</td> </tr&gt ; <tr> <td>CALCIUM</td> <td> 7.6 mg/dL</td> <td>8.5-10.1</td> </tr> & lt;tr> <td>BLOOD UREA NITROGEN</td> <td> 16 mg/dL</td> <td>7-20</td> </tr> <tr> <td>CREATININE</td> <td>0.7 mg/ dL</td> <td>0.8-1.3</td> </tr> & lt;tr> <td>SODIUM</td> <td>135 mmol/L< /td> <td>135-148</td> </tr> <tr& gt; <td>CHLORIDE</td> <td>104 mmol/L</td> <td>98-110</td> </tr> <tr> <td>CARBON DIOXIDE</td> <td>22 mmol/L</td> <td>21-32</td> </tr> <tr> < th colspan="10">CBC - 05/12/12 06:50</th> </tr> <tr> <td>MEAN CELL HGB</td> <td> 34.0 pg</td> <td>27.0-33.0</td> </tr> <tr> <td>MEAN CELL HGB CONCENTRATION</td> & lt;td>34.6 g/dl</td> <td>32.0-36.0</td> &lt ;/tr> <tr> <td>MEAN CELL VOLUME</td> <td >98.3 fl</td> <td>80.0-100.0</td> </tr& gt; <tr> <td>RED BLOOD CELL</td> < td>2.46 m/cumm</td> <td>4.00-6.00</td> </tr> <tr> <td>RED CELL DISTRIBUTION WIDTH</td> <td>13.4 %</td> <td>11.0-15.6</td& gt; </tr> <tr> <td>WHITE BLOOD CELL< /td> <td>6.7 k/cumm</td> <td>5.0-10.0</td&gt ; </tr> <tr> <td>HEMOGLOBIN</td> <td>8.4 gm/dL</td> <td>14.0-18.0</td&gt ; </tr> <tr> <td>HEMATOCRIT</td> <td>24.1 %</td> <td>40.0-54.0</ td> </tr> <tr> <td>PLATELET COUNT&lt ;/td> <td>80 k/cumm</td> <td>150-450</ td> </tr> <tr> <th colspan="10& quot;>METABOLIC PANEL, BASIC - 05/12/12 06:50</th> </tr> <tr> <td>POTASSIUM</td> <td>4.3 mmol/L</td> <td>3.5-5.3</td> </tr> < tr> <td>EST GFR (MDRD)</td> <td>> 60 mL/min</td> <td>> 59</td> </tr&gt ; <tr> <td>ANION GAP</td> <td> 9 mmol/L</td> <td>5-15</td> </tr> <tr> <td>GLUCOSE</td> <td>109 mg/dL& lt;/td> <td>70-99</td> </tr> <tr& gt; <td>CALCIUM</td> <td>7.6mg/dL</td&gt ; <td>8.5-10.1</td> </tr> <tr> & lt;td>BLOOD UREA NITROGEN</td> <td>16 mg/dL</td> <td>7-20</td> </tr> <tr> <td>CREATININE</td> <td>0.7 mg/dL</td> <td >0.8-1.3</td> </tr> <tr> <td> SODIUM</td> <td>135 mmol/L</td> <td> 135-148</td> </tr> <tr> <td> CHLORIDE</td> <td>104 mmol/L</td> <td>98- 110</td> </tr> <tr> <td>CARBON DIOXIDE</td> <td>22 mmol/L</td> <td>21-32< /td> </tr> <tr> <th colspan="10& quot;>CBC - 05/12/12 06:50</th> </tr> <tr> <td>MEANCELL HGB</td> <td>34.0 pg</td> <td>27.0-33.0</td> </tr> <tr> <td>MEAN CELL HGB CONCENTRATION</td><td>34.6 g/dl</td& gt; <td>32.0-36.0</td> </tr> <tr&gt ; <td>MEAN CELL VOLUME</td> <td>98.3 fl</ td><td>80.0-100.0</td> </tr> <tr> <td>RED BLOOD CELL</td> <td>2.46 m/cumm</td& gt; <td>4.00-6.00</td> </tr> <tr> <td>RED CELL DISTRIBUTION WIDTH</td> <td>13.4 & amp;#37;</td> <td>11.0-15.6</td> </tr> <tr> <td>WHITE BLOOD CELL</td> <td >6.7 k/cumm</td> <td>5.0-10.0</td> </tr> <tr> <td>HEMOGLOBIN</td> <td> 8.4 gm/dL</td> <td>14.0-18.0</td> </tr> <tr> <td>HEMATOCRIT</td> <td> 24.1 %</td> <td>40.0-54.0</td> </tr > <tr> <td>PLATELET COUNT</td> &lt ;td>80 k/cumm</td> <td>150-450</td> </tr > <tr> <th colspan="10">GLUCOSE (POC) - 05/12/12 12:03</th> </tr> <tr> <td >GLUCOSE (POC)</td> <td>123 mg/dL</td> & lt;td>70-99</td> </tr> <tr> <th colspan="10">GLUCOSE (POC) - 05/12/12 12:03</th> </ tr> <tr> <td>GLUCOSE (POC)</td> & lt;td>123 mg/dL</td> <td>70-99</td> </tr > <tr> <th colspan="10">GLUCOSE (POC) - 16:58</th> </tr> <tr> <td> GLUCOSE (POC)</td> <td>107 mg/dL</td> <td >70-99</td> </tr> <tr> <th colspan="10">GLUCOSE (POC) - 05/12/12 16:58</th> </ tr> <tr> <td>GLUCOSE (POC)</td> <td> 107 mg/dL</td> <td>70-99</td> </tr> <tr> <th colspan="10">AB H.PYLORI SCREEN - 20:40</th> </tr> <tr> <td> AB H.PYLORI SCREEN</td> <td>NEGATIVE </td> & lt;td>NEGATIVE</td> </tr> <tr> < th colspan="10">AB H.PYLORI SCREEN - 05/12/12 20:40</th> </tr> <tr> <td>AB H.PYLORI SCREEN</td& gt; <td>NEGATIVE </td> <td>NEGATIVE</td& gt; </tr> <tr> <th colspan="10"& gt;HEPARIN INDUCED PLATELET AB - 05/12/12 22:20</th> </tr> <tr> <td>HEPARIN INDUCED PLATELET AB</td> <td>0.795 OD</td> <td>0.000-0.400</td> & lt;/tr> <tr> <th colspan="10">HEPARIN INDUCED PLATELET AB - 05/12/12 22:20</th> </tr> <tr > <td>HEPARIN INDUCED PLATELET AB</td> <td& gt;0.795 OD</td> <td>0.000-0.400</td> </tr& gt; <tr> <th colspan="10">GLUCOSE (POC) - 05/13/12 00:02</th> </tr> <tr> <td& gt;GLUCOSE (POC)</td> <td>85 mg/dL</td> < td>70-99</td> </tr> <tr> <th colspan= "10">GLUCOSE (POC) - 05/13/12 00:02</th> </tr> <tr> <td>GLUCOSE (POC)</td> <td> 85mg/dL</td> <td>70-99</td> </tr> <tr> <th colspan="10">CBC - 05/13/12 06:00</ th> </tr> <tr> <td>COMMENT</td> <td>REVIEWED </td> <td /> </tr> <tr> <td>MEAN CELL HGB</td> <td&gt ;33.7 pg</td> <td>27.0-33.0</td> </tr> <tr> <td>MEAN CELL HGB CONCENTRATION</td> < td>34.3 g/dl</td> <td>32.0-36.0</td> </ tr> <tr> <td>MEAN CELL VOLUME</td> <td>98.1 fl</td> <td>80.0-100.0</td> & lt;/tr> <tr> <td>RED BLOOD CELL</td> <td>2.42 m/cumm</td> <td>4.00-6.00</td> </tr> <tr> <td>RED CELL DISTRIBUTION WIDTH</td> <td>13.9 %</td><td>11.0-15.6 </td> </tr> <tr> <td>WHITE BLOOD CELL</td> <td>6.3 k/cumm</td> <td>5.0- 10.0</td></tr> <tr> <td>HEMOGLOBIN</ td> <td>8.2 gm/dL</td> <td>14.0-18.0</ td> </tr> <tr> <td>HEMATOCRIT</td > <td>23.8 %</td> <td>40.0-54.0& lt;/td> </tr> <tr> <td>PLATELET COUNT</td> <td>91 k/cumm</td> <td>150-450</ td> </tr> <tr> <th colspan="10& quot;>CBC - 05/13/12 06:00</th> </tr> <tr> <td>COMMENT</td> <td>REVIEWED </td> < td /> </tr> <tr> <td>MEAN CELL HGB& lt;/td> <td>33.7 pg</td> <td>27.0-33.0</td& gt; </tr> <tr> <td>MEAN CELL HGB CONCENTRATION</td> <td>34.3 g/dl</td> <td >32.0-36.0</td> </tr> <tr> <td&gt ;MEAN CELL VOLUME</td> <td>98.1 fl</td> < td>80.0-100.0</td> </tr> <tr> <td >RED BLOOD CELL</td> <td>2.42 m/cumm</td> <td>4.00-6.00</td> </tr> <tr> & lt;td>RED CELL DISTRIBUTION WIDTH</td> <td>13.9 &#37 ;</td> <td>11.0-15.6</td> </tr> & lt;tr> <td>WHITE BLOOD CELL</td> <td>6.3 k/cumm</td> <td>5.0-10.0</td> </tr> <tr> <td>HEMOGLOBIN</td> <td>8.2 gm/dL</td> <td>14.0-18.0</td> </tr> <tr> <td>HEMATOCRIT</td> <td>23.8 %</td> <td>40.0-54.0</td> </tr> <tr> <td>PLATELET COUNT</td> <td& gt;91 k/cumm</td> <td>150-450</td> </tr&gt ; <tr> <th colspan="10">GLUCOSE (POC) - 06:06</th> </tr> <tr> <td> GLUCOSE (POC)</td> <td>57 mg/dL</td> <td& gt;70-99</td> </tr> <tr> <th colspan=& quot;10">GLUCOSE (POC) - 05/13/12 06:06</th> </tr> <tr> <td>GLUCOSE (POC)</td> <td> 57 mg/dL</td> <td>70-99</td> </tr> <tr> <th colspan="10">GLUCOSE (POC) - 05/13/12 06 :20</th> </tr> <tr><td>GLUCOSE (POC)</ td> <td>111 mg/dL</td> <td>70-99</td& gt; </tr> <tr> <th colspan="10"& gt;GLUCOSE (POC) - 05/13/12 06:20</th> </tr> <tr&gt ; <td>GLUCOSE (POC)</td> <td>111 mg/dL</ td> <td>70-99</td> </tr> <tr> <th colspan="10">GLUCOSE (POC) - 05/13/12 12:21</th > </tr> <tr> <td>GLUCOSE (POC)</ td> <td>125 mg/dL</td> <td>70-99</td& gt; </tr> <tr> <th colspan="10"> GLUCOSE (POC) - 05/13/12 12:21</th> </tr> <tr> <td>GLUCOSE (POC)</td> <td>125 mg/dL</td&gt ; <td>70-99</td> </tr> <tr> <th colspan="10">GLUCOSE (POC) - 05/13/12 18:25</th> </tr> <tr> <td>GLUCOSE (POC)</td> <td>115 mg/dL</td> <td>70-99</td> < /tr> <tr> <th colspan="10">GLUCOSE (POC ) - 05/13/12 18:25</th> </tr> <tr> < td>GLUCOSE (POC)</td> <td>115 mg/dL</td> <td>70-99</td> </tr> <tr> <th colspan="10">CBC - 05/14/12 03:55</th> </tr> & lt;tr> <td>MEAN CELL HGB</td> <td>33.6pg& lt;/td> <td>27.0-33.0</td> </tr> &lt ;tr> <td>MEAN CELL HGB CONCENTRATION</td> < td>33.8 g/dl</td> <td>32.0-36.0</td> </ tr> <tr> <td>MEAN CELL VOLUME</td> <td>99.6 fl</td> <td>80.0-100.0</td> & lt;/tr> <tr> <td>RED BLOOD CELL</td> <td>2.44 m/cumm</td> <td>4.00-6.00</td> </tr> <tr> <td>RED CELL DISTRIBUTION WIDTH</td> <td>14.0 %</td> <td&gt ;11.0-15.6</td> </tr> <tr> <td> WHITE BLOOD CELL</td> <td>6.5 k/cumm</td> & lt;td>5.0-10.0</td> </tr> <tr> < td>HEMOGLOBIN</td> <td>8.2 gm/dL</td> &lt ;td>14.0-18.0</td> </tr> <tr> <td >HEMATOCRIT</td> <td>24.3 %</td> <td>40.0-54.0</td> </tr> <tr> &lt ;td>PLATELET COUNT</td> <td>116 k/cumm</td> <td>150-450</td> </tr> <tr> & lt;th colspan="10">CBC - 05/14/12 03:55</th> </tr& gt; <tr> <td>MEAN CELL HGB</td> <td&gt ;33.6 pg</td> <td>27.0-33.0</td> </tr> <tr> <td>MEAN CELL HGB CONCENTRATION</td> <td>33.8 g/dl</td> <td>32.0-36.0</td> & lt;/tr> <tr> <td>MEAN CELL VOLUME</td> < td>99.6 fl</td> <td>80.0-100.0</td> </tr > <tr> <td>RED BLOOD CELL</td> &lt ;td>2.44 m/cumm</td> <td>4.00-6.00</td> </tr&gt ; <tr> <td>RED CELL DISTRIBUTION WIDTH</td> <td>14.0 %</td> <td>11.0-15.6</td& gt; </tr> <tr> <td>WHITE BLOOD CELL< /td> <td>6.5 k/cumm</td> <td>5.0-10.0</td&gt ; </tr> <tr> <td>HEMOGLOBIN</td> <td>8.2 gm/dL</td> <td>14.0-18.0</td&gt ; </tr> <tr> <td>HEMATOCRIT</td> <td>24.3 %</td> <td>40.0-54.0</ td> </tr> <tr> <td>PLATELET COUNT&lt ;/td> <td>116 k/cumm</td> <td>150-450< /td> </tr> <tr> <th colspan="10& quot;>GLUCOSE (POC) - 05/14/12 06:00</th> </tr> &lt ;tr> <td>GLUCOSE (POC)</td> <td>123 mg/dL </td> <td>70-99</td> </tr> <tr > <th colspan="10">GLUCOSE (POC) - 05/14/12 06:00&lt ;/th> </tr> <tr> <td>GLUCOSE (POC)& lt;/td> <td>123 mg/dL</td> <td>70-99</ td> </tr> <tr> <th colspan="10& quot;>GLUCOSE (POC) - 05/14/12 11:49</th> </tr> &lt ;tr> <td>GLUCOSE (POC)</td> <td>124 mg/dL </td> <td>70-99</td> </tr> <tr> <th colspan="10">GLUCOSE (POC) - 05/14/12 11:49</th& gt; </tr> <tr> <td>GLUCOSE (POC)</td> <td>124 mg/dL</td> <td>70-99</td> </tr> <tr> <th colspan="10"> GLUCOSE (POC) - 05/14/12 18:24</th> </tr> <tr> <td>GLUCOSE (POC)</td> <td>111 mg/dL</td& gt;<td>70-99</td> </tr> <tr> < th colspan="10">GLUCOSE (POC) - 05/14/12 18:24</th> & lt;/tr> <tr> <td>GLUCOSE (POC)</td> <td>111 mg/dL</td> <td>70-99</td> &lt ;/tr> <tr> <th colspan="10">GLUCOSE ( POC) - 05/14/12 23:47</th> </tr> <tr> & lt;td>GLUCOSE (POC)</td> <td>104 mg/dL</td> <td>70-99</td> </tr> <tr> <th colspan="10">GLUCOSE (POC) - 05/14/12 23:47</th> </tr& gt; <tr> <td>GLUCOSE (POC)</td> < td>104mg/dL</td> <td>70-99</td> </tr&gt ; <tr> <th colspan="10">GLUCOSE (POC) - 05:20</th> </tr> <tr> <td> GLUCOSE (POC)</td> <td>96 mg/dL</td><td>70-99& lt;/td> </tr> <tr> <th colspan="10 ">CBC - 05/15/12 05:20</th> </tr> <tr> <td>MEAN CELL HGB</td> <td>33.9 pg</td&gt ; <td>27.0-33.0</td> </tr> <tr> <td>MEAN CELL HGB CONCENTRATION</td> <td>33.9 g/dl& lt;/td> <td>32.0-36.0</td> </tr> &lt ;tr> <td>MEAN CELL VOLUME</td> <td>99.9 fl</td> <td>80.0-100.0</td> </tr> <tr> <td>RED BLOOD CELL</td> <td> 2.68 m/cumm</td> <td>4.00-6.00</td> </tr&gt ; <tr> <td>RED CELL DISTRIBUTION WIDTH</td> <td>14.0 %</td> <td>11.0-15.6</td& gt; </tr> <tr> <td>WHITE BLOOD CELL< /td> <td>8.2 k/cumm</td> <td>5.0-10.0</td> </tr> <tr> <td>HEMOGLOBIN</td> <td>9.1 gm/dL</td> <td>14.0-18.0</td> </tr> <tr> <td>HEMATOCRIT</td> <td>26.8 %</td> <td>40.0-54.0</td > </tr> <tr> <td>PLATELET COUNT</ td> <td>142 k/cumm</td> <td>150-450</ td> </tr> <tr> <th colspan="10& quot;>METABOLIC PANEL, BASIC - 05/15/12 05:20</th> </tr> <tr> <td>POTASSIUM</td> <td> 4.4 mmol/L</td> <td>3.5-5.3</td> </tr> <tr> <td>EST GFR (MDRD)</td> <td& gt;> 60 mL/min</td> <td>> 59</td> </tr> <tr> <td>ANION GAP</td> <td>10 mmol/L</td> <td>5-15</td> </ tr> <tr> <td>GLUCOSE</td> <td& gt;99 mg/dL</td> <td>70-99</td> </tr> <tr> <td>CALCIUM</td> <td>8.4 mg/ dL</td> <td>8.5-10.1</td> </tr> & lt;tr> <td>BLOOD UREA NITROGEN</td> <td> 14 mg/dL</td> <td>7-20</td> </tr><tr& gt; <td>CREATININE</td> <td>0.8 mg/dL</td ><td>0.8-1.3</td> </tr> <tr> & lt;td>SODIUM</td> <td>134 mmol/L</td> &lt ;td>135-148</td> </tr> <tr> <td> CHLORIDE</td> <td>101 mmol/L</td> <td>98- 110</td> </tr> <tr> <td>CARBON DIOXIDE</td> <td>23 mmol/L</td> <td>21 -32</td> </tr> <tr> <th colspan=& quot;10">PHOSPHORUS - 05/15/12 05:20</th> </tr> <tr> <td>PHOSPHORUS</td> <td>3.6 mg /dL</td> <td>2.5-4.9</td> </tr> & lt;tr> <th colspan="10">MAGNESIUM - 05/15/12 05:20</ th> </tr> <tr> <td>MAGNESIUM</td> <td>1.9 mg/dL</td> <td>1.8-2.4</td> </ tr> <tr> <th colspan="10">GLUCOSE (POC ) - 05/15/12 05:20</th> </tr> <tr> < td>GLUCOSE (POC)</td> <td>96 mg/dL</td> & lt;td>70-99</td> </tr> <tr> <th colspan="10">CBC - 05/15/12 05:20</th> </tr> <tr> <td>MEAN CELL HGB</td> <td>33.9 pg& lt;/td> <td>27.0-33.0</td> </tr> &lt ;tr> <td>MEAN CELL HGB CONCENTRATION</td> < td>33.9 g/dl</td> <td>32.0-36.0</td> </ tr> <tr> <td>MEAN CELL VOLUME</td> <td>99.9 fl</td> <td>80.0-100.0</td> & lt;/tr> <tr> <td>RED BLOOD CELL</td> <td>2.68 m/cumm</td> <td>4.00-6.00</td> </tr> <tr> <td>RED CELL DISTRIBUTION WIDTH</td> <td>14.0 %</td> <td&gt ;11.0-15.6</td> </tr> <tr> <td> WHITE BLOOD CELL</td> <td>8.2 k/cumm</td> & lt;td>5.0-10.0</td> </tr> <tr> < td>HEMOGLOBIN</td> <td>9.1 gm/dL</td> &lt ;td>14.0-18.0</td> </tr> <tr> <td >HEMATOCRIT</td> <td>26.8 %</td> <td>40.0-54.0</td> </tr> <tr> &lt ;td>PLATELET COUNT</td> <td>142 k/cumm</td> <td>150-450</td> </tr> <tr> & lt;th colspan="10">METABOLIC PANEL, BASIC - 05/15/12 05:20</th& gt; </tr> <tr> <td>POTASSIUM</td> <td>4.4 mmol/L</td> <td>3.5-5.3</td> &lt ;/tr> <tr> <td>EST GFR (MDRD)</td> <td>> 60 mL/min</td> <td>> 59</td&gt ; </tr> <tr> <td>ANION GAP</td> <td>10 mmol/L</td> <td>5-15</td> </tr> <tr> <td>GLUCOSE</td> <td>99 mg/dL</td> <td>70-99</td> </tr > <tr> <td>CALCIUM</td> <td> 8.4 mg/dL</td> <td>8.5-10.1</td> </tr> <tr> <td>BLOOD UREA NITROGEN</td> &lt ;td>14mg/dL</td> <td>7-20</td> </tr> <tr> <td>CREATININE</td> <td> 0.8 mg/dL</td> <td>0.8-1.3</td> </tr> <tr> <td>SODIUM</td> <td>134 mmol/L</td> <td>135-148</td> </tr> <tr> <td>CHLORIDE</td> <td>101 mmol/L</ td> <td>98-110</td> </tr> <tr&gt ; <td>CARBON DIOXIDE</td><td>23 mmol/L</td> <td>21-32</td> </tr> <tr> <th colspan="10">PHOSPHORUS - 05/15/12 05:20</th> & lt;/tr> <tr> <td>PHOSPHORUS</td> & lt;td>3.6 mg/dL</td> <td>2.5-4.9</td> </ tr> <tr> <th colspan="10">MAGNESIUM - 05/15/12 05:20</th> </tr> <tr> <td& gt;MAGNESIUM</td> <td>1.9 mg/dL</td> <td& gt;1.8-2.4</td> </tr> <tr> <th colspan="10">GLUCOSE (POC) - 05/15/12 10:29</th> </ tr> <tr> <td>GLUCOSE (POC)</td> & lt;td>88 mg/dL</td> <td>70-99</td> </tr& gt; <tr> <th colspan="10">GLUCOSE (POC) - 05/15/12 10:29</th> </tr> <tr> <td& gt;GLUCOSE (POC)</td> <td>88 mg/dL</td> < td>70-99</td> </tr> <tr> <th colspan=&quot ;10">GLUCOSE (POC) - 05/15/12 17:49</th> </tr> <tr > <td>GLUCOSE (POC)</td> <td>100 mg/dL&lt ;/td> <td>70-99</td> </tr> <tr> <th colspan="10">GLUCOSE (POC) - 05/15/12 17:49</th&gt ; </tr> <tr> <td>GLUCOSE (POC)</td& gt; <td>100 mg/dL</td> <td>70-99</td> </tr> <tr> <th colspan="10"> GLUCOSE (POC) -05/16/12 00:10</th> </tr> <tr> <td>GLUCOSE (POC)</td> <td>123 mg/dL</td& gt; <td>70-99</td> </tr> <tr> <th colspan="10">GLUCOSE (POC) - 05/16/12 00:10</th&gt ; </tr> <tr> <td>GLUCOSE (POC)</td& gt; <td>123 mg/dL</td> <td>70-99</td> </tr> <tr> <th colspan="10">GLUCOSE (POC) - 05/16/12 06:16</th> </tr> <tr> <td >GLUCOSE (POC)</td> <td>104 mg/dL</td> <td& gt;70-99</td> </tr> <tr> <th colspan ="10">GLUCOSE (POC) - 05/16/12 06:16</th> </tr> <tr> <td>GLUCOSE (POC)</td> <td& gt;104 mg/dL</td> <td>70-99</td> </tr> <tr> <th colspan="10">GLUCOSE (POC) - 15/06 12:04</th> </tr> <tr> <td> GLUCOSE (POC)</td> <td>93 mg/dL</td> <td& gt;70-99</td> </tr> <tr> <th colspan= "10">GLUCOSE (POC) - 05/16/12 12:04</th> </tr> <tr> <td>GLUCOSE (POC)</td> <td&gt ;93 mg/dL</td> <td>70-99</td> </tr> <tr> <th colspan="10">PROTHROMBIN TIME WITH INR - 15/06 16:35</th> </tr> <tr> <td> INTERNATIONAL NORMAL RATIO</td> <td>1.5 </td> <td>0.9-1.1</td> </tr> <tr> & lt;td>PROTHROMBIN TIME</td> <td>15.5 sec</td> <td>9.3-12.2</td> </tr> <tr> <th colspan="10">METABOLIC PANEL, COMPREHN - 05/16/12 16:35& lt;/th> </tr> <tr> <td>POTASSIUM< /td> <td>4.5 mmol/L</td> <td>3.5-5.3</ td> </tr> <tr> <td>EST GFR (MDRD)</ td> <td>> 60 mL/min</td> <td>& gt; 59</td> </tr> <tr> <td>ANION GAP</td> <td>7 mmol/L</td> <td>5-15&lt ;/td> </tr> <tr> <td>GLUCOSE</td& gt; <td>101 mg/dL</td> <td>70-99</td> </tr> <tr> <td>CALCIUM</td> &lt ;td>8.4 mg/dL</td> <td>8.5-10.1</td> </ tr> <tr> <td>BLOOD UREA NITROGEN</td> <td>19 mg/dL</td> <td>7-20</td> &lt ;/tr> <tr> <td>CREATININE</td> < td>0.9 mg/dL</td> <td>0.8-1.3</td> </tr&gt ; <tr> <td>SODIUM</td> <td>134 mmol/L</td> <td>135-148</td> </tr> <tr> <td>CHLORIDE</td> <td>102 mmol /L</td> <td>98-110</td> </tr> &lt ;tr> <td>AST/SGOT</td> <td>31 Units/L< /td> <td>10-37</td> </tr> <tr&gt ; <td>ALT/SGPT</td> <td>43 Units/L</td&gt ; <td>< 66</td> </tr> <tr&gt ; <td>CARBON DIOXIDE</td> <td>25 mmol/L</ td> <td>21-32</td> </tr> <tr> <td>TOTAL PROTEIN</td> <td>6.2 gm/dL</td > <td>6.4-8.2</td> </tr> <tr> <td>ALBUMIN</td> <td>2.9 gm/dL</td> <td>3.4-5.0</td> </tr> <tr> <td>BILI TOTAL</td><td>1.2 mg/dL</td> <td >0.0-1.0</td> </tr> <tr> <td> ALKALINE PHOSPHATASE TOTAL</td> <td>128 Units/L</td> <td>50-136</td> </tr> <tr> <th colspan="10">VITAMIN B12 - 05/16/12 16:35</th> </tr> <tr> <td>VITAMIN B12</td> <td>559 pg/mL</td> <td>211-911</td> < /tr> <tr> <th colspan="10">FOLIC ACID, SERUM - 05/16/12 16:35</th> </tr> <tr> <td>FOLIC ACID,SERUM</td> <td>11.5 ng/mL</td> <td>> 3.4</td> </tr> <tr> <th colspan="10">PROTHROMBIN TIME WITH INR - 05/16/12 16:35</th> </tr> <tr> <td> INTERNATIONAL NORMAL RATIO</td> <td>1.5 </td> <td>0.9-1.1</td> </tr> <tr> < td>PROTHROMBIN TIME</td> <td>15.5 sec</td> <td>9.3-12.2</td> </tr> <tr> < th colspan="10">METABOLIC PANEL, COMPREHN - 05/16/12 16:35</th& gt; </tr> <tr> <td>POTASSIUM</td&gt ; <td>4.5 mmol/L</td> <td>3.5-5.3</td&gt ; </tr> <tr> <td>EST GFR (MDRD)</td& gt; <td>> 60 mL/min</td> <td>&gt ; 59</td> </tr> <tr> <td>ANION GAP</td> <td>7 mmol/L</td> <td>5-15</td&gt ; </tr> <tr> <td>GLUCOSE</td> <td>101 mg/dL</td> <td>70-99</td> </tr> <tr> <td>CALCIUM</td> & lt;td>8.4 mg/dL</td> <td>8.5-10.1</td> < /tr> <tr> <td>BLOOD UREA NITROGEN</td> <td>19 mg/dL</td> <td>7-20</td> </tr&gt ; <tr> <td>CREATININE</td> <td> 0.9 mg/dL</td> <td>0.8-1.3</td> </tr> <tr> <td>SODIUM</td> <td>134 mmol/L</td> <td>135-148</td> </tr> &lt ;tr> <td>CHLORIDE</td> <td>102 mmol/L< /td> <td>98-110</td> </tr> <tr&gt ; <td>AST/SGOT</td> <td>31 Units/L</td&gt ; <td>10-37</td> </tr> <tr> <td>ALT/SGPT</td> <td>43 Units/L</td> <td>< 66</td> </tr> <tr> & lt;td>CARBON DIOXIDE</td> <td>25 mmol/L</td> <td>21-32</td> </tr> <tr> & lt;td>TOTAL PROTEIN</td> <td>6.2 gm/dL</td> <td>6.4-8.2</td> </tr> <tr> & lt;td>ALBUMIN</td> <td>2.9 gm/dL</td> &lt ;td>3.4-5.0</td> </tr> <tr> <td> BILI TOTAL</td> <td>1.2 mg/dL</td> <td&gt ;0.0-1.0</td> </tr> <tr> <td> ALKALINE PHOSPHATASE TOTAL</td> <td>128 Units/L</td> <td>50-136</td> </tr> <tr> <th colspan="10">VITAMIN B12 - 05/16/12 16:35</th> </tr> <tr> <td>VITAMIN B12</td> <td>559 pg/mL</td> <td>211-911</td> </tr> <tr> <th colspan="10">FOLIC ACID,SERUM - 05/16/12 16:35</th> </tr> <tr> <td>FOLIC ACID,SERUM</td> <td>11.5 ng/mL</td > <td>> 3.4</td> </tr> <tr > <th colspan="10">GLUCOSE (POC) - 05/16/12 18:01&lt ;/th> </tr> <tr> <td>GLUCOSE (POC)& lt;/td> <td>86 mg/dL</td> <td>70-99</ td> </tr> <tr> <th colspan="10& quot;>GLUCOSE (POC) - 05/16/12 18:01</th> </tr> &lt ;tr> <td>GLUCOSE (POC)</td> <td>86 mg/dL& lt;/td> <td>70-99</td> </tr> <tr> <th colspan="10">GLUCOSE (POC) - 05/17/1206:21</th& gt; </tr> <tr> <td>GLUCOSE (POC)</td > <td>74 mg/dL</td> <td>70-99</td> </tr> <tr> <th colspan="10"> GLUCOSE (POC) - 05/17/12 06:21</th> </tr> <tr> <td>GLUCOSE (POC)</td> <td>74 mg/dL</td& gt; <td>70-99</td> </tr> <tr> <th colspan="10">PROTHROMBIN TIME WITH INR - 05/17/12 06: 24</th> </tr> <tr> <td>INTERNATIONAL NORMAL RATIO</td> <td>1.7 </td> <td> 0.9-1.1</td> </tr> <tr> <td> PROTHROMBIN TIME</td> <td>17.1 sec</td> < td>9.3-12.2</td> </tr> <tr> <th colspan="10">METABOLIC PANEL, BASIC - 05/17/12 06:24</th> </tr> <tr> <td>POTASSIUM</td> <td>4.3 mmol/L</td> <td>3.5-5.3</td> </tr> <tr> <td>EST GFR (MDRD)</td> <td>> 60 mL/min</td> <td>> 59& lt;/td> </tr> <tr> <td>ANION GAP</td&gt ; <td>8 mmol/L</td> <td>5-15</td> </tr> <tr> <td>GLUCOSE</td> <td>82 mg/dL</td> <td>70-99</td> </ tr> <tr> <td>CALCIUM</td> <td>8.4 mg/ dL</td> <td>8.5-10.1</td> </tr> & lt;tr> <td>BLOOD UREA NITROGEN</td> <td>17 mg/dL </td> <td>7-20</td> </tr> <tr& gt; <td>CREATININE</td> <td>0.9 mg/dL</td > <td>0.8-1.3</td> </tr> <tr> <td>SODIUM</td> <td>132 mmol/L</td> <td>135-148</td> </tr> <tr> & lt;td>CHLORIDE</td> <td>104 mmol/L</td> & lt;td>98-110</td> </tr> <tr> <td& gt;CARBON DIOXIDE</td> <td>20 mmol/L</td> & lt;td>21-32</td> </tr> <tr> <th colspan="10">CBC - 05/17/12 06:24</th> </tr> <tr> <td>MEAN CELL HGB</td> <td> 34.7 pg</td> <td>27.0-33.0</td> </tr> <tr> <td>MEAN CELL HGB CONCENTRATION</td> <td>34.9 g/dl</td> <td>32.0-36.0</td> </tr> <tr> <td>MEAN CELL VOLUME</td&gt ; <td>99.5 fl</td> <td>80.0-100.0</td&gt ; </tr> <tr> <td>RED BLOOD CELL</td& gt; <td>2.61 m/cumm</td> <td>4.00-6.00</ td> </tr> <tr> <td>RED CELL DISTRIBUTION WIDTH</td> <td>15.4 %</td> <td>11.0-15.6</td> </tr> <tr> <td>WHITE BLOOD CELL</td> <td>6.8 k/cumm</td&gt ; <td>5.0-10.0</td> </tr> <tr> <td>HEMOGLOBIN</td> <td>9.1 gm/dL</td> <td>14.0-18.0</td> </tr> <tr> <td>HEMATOCRIT</td> <td>26.0 %</td > <td>40.0-54.0</td> </tr> <tr&gt ; <td>PLATELET COUNT</td> <td>138 k/cumm< /td> <td>150-450</td> </tr> <tr& gt; <th colspan="10">PROTHROMBIN TIME WITH INR - 06:24</th> </tr> <tr> <td> INTERNATIONAL NORMAL RATIO</td> <td>1.7 </td> <td>0.9-1.1</td> </tr> <tr> < td>PROTHROMBIN TIME</td> <td>17.1 sec</td> <td>9.3-12.2</td> </tr> <tr> & lt;th colspan="10">METABOLIC PANEL, BASIC - 05/17/12 06:24</th& gt; </tr> <tr> <td>POTASSIUM</td&gt ; <td>4.3 mmol/L</td> <td>3.5-5.3</td&gt ; </tr> <tr> <td>EST GFR (MDRD)</td& gt; <td>> 60 mL/min</td> <td>&gt ; 59</td> </tr> <tr> <td>ANION GAP</ td> <td>8 mmol/L</td><td>5-15</td> & lt;/tr> <tr> <td>GLUCOSE</td> < td>82 mg/dL</td> <td>70-99</td> </tr> <tr> <td>CALCIUM</td> <td>8.4 mg/dL&lt ;/td> <td>8.5-10.1</td> </tr> <tr > <td>BLOOD UREA NITROGEN</td> <td>17 mg/ dL</td> <td>7-20</td> </tr> < tr> <td>CREATININE</td> <td>0.9 mg/dL< /td> <td>0.8-1.3</td> </tr> <tr& gt; <td>SODIUM</td> <td>132 mmol/L</td&gt ; <td>135-148</td> </tr> <tr> <td>CHLORIDE</td> <td>104 mmol/L</td> <td>98-110</td> </tr> <tr> <td>CARBON DIOXIDE</td> <td>20 mmol/L</td> <td>21-32</td> </tr> <tr> <th colspan="10">CBC - 05/17/12 06:24</th> </ tr> <tr> <td>MEAN CELL HGB</td><td> 34.7 pg</td> <td>27.0-33.0</td> </tr> <tr> <td>MEAN CELL HGB CONCENTRATION</td> <td>34.9 g/dl</td> <td>32.0-36.0</td> </tr> <tr> <td>MEAN CELL VOLUME</td&gt ; <td>99.5 fl</td> <td>80.0-100.0</td&gt ; </tr> <tr> <td>RED BLOOD CELL</td& gt; <td>2.61 m/cumm</td> <td>4.00-6.00</ td> </tr> <tr> <td>RED CELL DISTRIBUTION WIDTH</td> <td>15.4 %</td> <td>11.0-15.6</td> </tr> <tr> <td>WHITE BLOOD CELL</td> <td>6.8 k/cumm</td&gt ; <td>5.0-10.0</td> </tr> <tr> <td>HEMOGLOBIN</td> <td>9.1 gm/dL</td> <td>14.0-18.0</td> </tr> <tr> <td>HEMATOCRIT</td> <td>26.0 %</td& gt; <td>40.0-54.0</td> </tr> <tr&gt ; <td>PLATELET COUNT</td> <td>138 k/cumm< /td> <td>150-450</td> </tr> <tr& gt; <th colspan="10">CBC W/DIFF - 03/04/16 09:18</th > </tr> <tr> <td>EOSINOPHIL #</td& gt; <td>0.1 k/cumm</td> <td>0.1-0.5</td& gt; </tr> <tr> <td>EOSINOPHIL %</td > <td>1 %</td> <td>2-4</td&gt ; </tr> <tr> <td>GRANULOCYTE #</td& gt; <td>7.6 k/cumm</td> <td>2.0-9.0</td&gt ; </tr> <tr> <td>GRANULOCYTE %</ td> <td>80 %</td> <td>50-75</ td> </tr> <tr> <td>LYMPHOCYTE #</ td> <td>1.1 k/cumm</td> <td>1.0-4.0</ td> </tr> <tr> <td>LYMPHOCYTE &# 37;</td> <td>11 %</td> <td>20- 30</td> </tr> <tr> <td>MEAN CELL HGB</td> <td>31.3 pg</td> <td>27.0- 33.0</td> </tr> <tr> <td>MEAN CELL HGB CONCENTRATION</td> <td>33.4 g/dL</td> <td>32.0-37.0</td> </tr> <tr> & lt;td>MEAN CELL VOLUME</td> <td>93.7 fl</td> <td>80.0-100.0</td> </tr> <tr> & lt;td>MONOCYTE #</td> <td>0.7 k/cumm</td> <td>0.1-1.0</td> </tr> <tr> &lt ;td>MONOCYTE %</td> <td>8 %</td> <td>4-6</td> </tr> <tr> <td& gt;RED BLOOD CELL</td> <td>4.31 m/cumm</td> &lt ;td>4.00-6.00</td> </tr> <tr> <td >RED CELL DISTRIBUTION WIDTH</td> <td>13.3 %< /td> <td>11.0-15.6</td> </tr> <tr > <td>WHITE BLOOD CELL</td> <td>9.4 k/cumm& lt;/td> <td>5.0-10.0</td> </tr> <tr& gt; <td>HEMOGLOBIN</td> <td>13.5 gm/dL</ td> <td>14.0-18.0</td> </tr> <tr> <td>HEMATOCRIT</td> <td>40.4 %</ td> <td>40.0-54.0</td> </tr> <tr> <td>PLATELET COUNT</td> <td>154 k/cumm</ td> <td>150-400</td> </tr> <tr&gt ; <th colspan="10">HEPATIC FUNCTION PANEL - 09/10/13 09:18</ th> </tr> <tr> <td>BILI UNCONJUGATED </td> <td>1.0 mg/dL</td> <td>0.0-0.7& lt;/td> </tr> <tr> <td>AST/SGOT</ td> <td>21 Units/L</td> <td>10-37</td& gt; </tr> <tr> <td>ALT/SGPT</td> <td>20 Units/L</td> <td>< 66</td&gt ; </tr> <tr> <td>TOTAL PROTEIN</td> <td>6.8 gm/dL</td> <td>6.4-8.2</td> </tr> <tr> <td>ALBUMIN</td> &lt ;td>3.5 gm/dL</td> <td>3.4-5.0</td> </tr > <tr> <td>BILI TOTAL</td> <td& gt;1.2 mg/dL</td> <td>0.0-1.0</td> </tr&gt ; <tr> <td>ALKALINE PHOSPHATASE TOTAL</td> <td>81 IU/L</td> <td>45-117</td> </tr> <tr> <td>BILI CONJUGATED</td> <td>0.2 mg/dL</td> <td>0.0-0.3</td> </tr> <tr> <th colspan="10"> PROTHROMBIN TIME WITH INR - 09/10/13 09:18</th> </tr> < tr> <td>INTERNATIONAL NORMAL RATIO</td> <td& gt;2.3 </td> <td>0.9-1.1</td> </tr> <tr> <td>PROTHROMBIN TIME</td> <td&gt ;25.3 sec</td> <td>9.3-12.2</td> </tr> <tr> <th colspan="10">CBC W/DIFF - 09:18</th> </tr> <tr> <td> EOSINOPHIL #</td> <td>0.1 k/cumm</td> <td& gt;0.1-0.5</td> </tr> <tr> <td> EOSINOPHIL %</td> <td>1 %</td> <td>2-4</td> </tr> <tr> < td>GRANULOCYTE #</td> <td>7.6 k/cumm</td> <td>2.0-9.0</td> </tr> <tr> <td >GRANULOCYTE %</td> <td>80 %</td> <td>50-75</td> </tr> <tr> <td>LYMPHOCYTE #</td> <td>1.1 k/cumm</td> <td>1.0-4.0</td> </tr> <tr> <td>LYMPHOCYTE %</td> <td>11 %& lt;/td> <td>20-30</td> </tr> <tr& gt; <td>MEAN CELL HGB</td> <td>31.3 pg</ td> <td>27.0-33.0</td> </tr> <tr& gt; <td>MEAN CELL HGB CONCENTRATION</td> <td&gt ;33.4 g/dL</td> <td>32.0-37.0</td> </tr&gt ; <tr> <td>MEAN CELL VOLUME</td> < td>93.7 fl</td> <td>80.0-100.0</td> </tr > <tr> <td>MONOCYTE #</td> <td> 0.7 k/cumm</td> <td>0.1-1.0</td> </tr> <tr> <td>MONOCYTE %</td> <td& gt;8 %</td> <td>4-6</td> </tr> <tr> <td>RED BLOOD CELL</td> <td>4.31m /cumm</td> <td>4.00-6.00</td> </tr> <tr> <td>RED CELL DISTRIBUTION WIDTH</td> < td>13.3 %</td> <td>11.0-15.6</td> </ tr> <tr> <td>WHITE BLOOD CELL</td> <td>9.4 k/cumm</td> <td>5.0-10.0</td> &lt ;/tr> <tr> <td>HEMOGLOBIN</td> &lt ;td>13.5 gm/dL</td> <td>14.0-18.0</td> < /tr> <tr> <td>HEMATOCRIT</td> <td> 40.4 %</td> <td>40.0-54.0</td> </tr > <tr> <td>PLATELET COUNT</td> <td >154 k/cumm</td> <td>150-400</td> </tr& gt; <tr> <th colspan="10">HEPATIC FUNCTION PANEL - 09/10/13 09:18</th> </tr> <tr> <td>BILI UNCONJUGATED</td> <td>1.0 mg/dL</td> <td>0.0-0.7</td> </tr> <tr> <td>AST/SGOT</td> <td>21 Units/L</td> <td>10-37</td> </tr> <tr> & lt;td>ALT/SGPT</td> <td>20 Units/L</td> <td&gt ;< 66</td> </tr> <tr> <td>TOTAL PROTEIN</td> <td>6.8 gm/dL</td> <td>6.4-8.2& lt;/td> </tr> <tr> <td>ALBUMIN</ td> <td>3.5 gm/dL</td> <td>3.4-5.0</td > </tr> <tr> <td>BILI TOTAL</td& gt; <td>1.2 mg/dL</td> <td>0.0-1.0</td&gt ; </tr> <tr> <td>ALKALINE PHOSPHATASE TOTAL</td> <td>81 IU/L</td> <td>45-117 </td> </tr> <tr> <td>BILI CONJUGATED</td> <td>0.2 mg/dL</td> <td&gt ;0.0-0.3</td> </tr> <tr> <th colspan ="10">PROTHROMBIN TIME WITH INR - 09/10/13 09:18</th> < /tr> <tr> <td>INTERNATIONAL NORMAL RATIO</td& gt; <td>2.3 </td> <td>0.9-1.1</td> </tr> <tr> <td>PROTHROMBIN TIME</td> <td>25.3 sec</td> <td>9.3-12.2</td> </tr> <tr> <th colspan="10"> CHEM/HEM PROFILE-BEDSIDE - 09/10/13 09:29</th> </tr> & lt;tr> <td>POTASSIUM</td> <td>4.0 mmol/L& lt;/td> <td>3.5-5.3</td> </tr> < tr> <td>METHOD</td> <td>Bedside </td& gt; <td /> </tr> <tr> <td& gt;ANION GAP</td> <td>14 mmol/L</td> <td& gt;10-20</td></tr> <tr> <td>METHOD</ td> <td>Bedside </td> <td /> </ tr> <tr> <td>GLUCOSE</td> <td& gt;91 mg/dL</td> <td>70-99</td> </tr> & lt;tr> <td>BLOOD UREA NITROGEN</td> <td> 19 mg/dL</td> <td>7-20</td> </tr> <tr> <td>CREATININE</td> <td>0.8 mg/dL </td> <td>0.8-1.3</td> </tr> < tr> <td>HEMOGLOBIN</td> <td>13.6 gm/dL&lt ;/td> <td>14.0-18.0</td> </tr> < tr> <td>HEMATOCRIT</td> <td>40.0 &#37 ;</td> <td>40.0-54.0</td> </tr> & lt;tr> <td>SODIUM</td> <td>135 mmol/L< /td> <td>135-148</td> </tr> <tr& gt; <td>CHLORIDE</td> <td>100 mmol/L</td> <td>98-110</td> </tr> <tr> <td>CARBON DIOXIDE</td> <td>27 mmol/L</td> <td>21-32</td> </tr> <tr> < td>CALCIUM IONIZED</td> <td>4.7 mg/dL</td> <td>4.5-5.3</td> </tr> <tr> & lt;th colspan="10">CHEM/HEM PROFILE-BEDSIDE - 09/10/13 09:29</th > </tr> <tr> <td>POTASSIUM</td> <td>4.0 mmol/L</td> <td>3.5-5.3</td> </tr> <tr> <td>METHOD</td> <td>Bedside </td> <td /> </tr> & lt;tr> <td>ANION GAP</td> <td>14 mmol/L& lt;/td> <td>10-20</td> </tr> <tr&gt ; <td>METHOD</td> <td>Bedside </td> <td /> </tr> <tr> <td> GLUCOSE</td> <td>91 mg/dL</td> <td>70- 99</td> </tr> <tr> <td>BLOOD UREA NITROGEN</td> <td>19 mg/dL</td> <td>7- 20</td> </tr> <tr> <td>CREATININE </td> <td>0.8 mg/dL</td> <td>0.8-1.3& lt;/td> </tr> <tr> <td>HEMOGLOBIN</td&gt ; <td>13.6 gm/dL</td> <td>14.0-18.0</td& gt; </tr> <tr> <td>HEMATOCRIT</td&gt ; <td>40.0 %</td> <td>40.0-54.0</ td> </tr> <tr> <td>SODIUM</td&gt ; <td>135 mmol/L</td> <td>135-148</td&gt ; </tr> <tr> <td>CHLORIDE</td> <td>100 mmol/L</td> <td>98-110</td> </tr> <tr> <td>CARBON DIOXIDE</td> <td>27 mmol/L</td> <td>21-32</td> </tr> <tr> <td>CALCIUM IONIZED</td> <td>4.7 mg/dL</td> <td>4.5-5.3</td> & lt;/tr> <tr> <th colspan="10">TROPONIN I BEDSIDE - 09/10/13 09:31</th> </tr> <tr> &lt ;td>METHOD</td> <td>Bedside </td> <td /> </tr> <tr> <td>TROPONIN I</td& gt; <td>< 0.04 ng/mL</td> <td>&lt ; 0.11</td> </tr> <tr> <th colspan=& quot;10">TROPONIN I BEDSIDE - 09/10/13 09:31</th> </tr& gt; <tr> <td>METHOD</td> <td> Bedside </td> <td /> </tr> <tr> <td>TROPONIN I</td> <td>< 0.04 ng/mL</td& gt; <td>< 0.11</td> </tr> <tr > <th colspan="10">URINALYSIS, ROUTINE - 09/10/13 11 :30</th> </tr> <tr> <td>UA LEUKOCYTE ESTERASE DIPSTICK</td> <td>NEGATIVE </td> <td>NEGATIVE</td> </tr> <tr> <td>UA NITRITE DIPSTICK</td> <td>NEGATIVE </ td> <td>NEGATIVE</td> </tr> <tr& gt; <td>UA PROTEIN DIPSTICK</td> <td>NEGATIVE </td > <td>NEGATIVE</td> </tr> <tr&gt ; <td>UA GLUCOSE DIPSTICK</td> <td>NEGATIVE </td> <td>NEGATIVE</td> </tr> &lt ;tr> <td>UA KETONE DIPSTICK</td> <td> NEGATIVE </td> <td>NEGATIVE</td> </tr> <tr> <td>UA UROBILINOGEN DIPSTICK</td> <td>NORMAL </td> <td>NORMAL</td> < /tr> <tr> <td>UA BILIRUBIN DIPSTICK</td> <td>NEGATIVE </td> <td>NEGATIVE</td> </tr> <tr> <td>UA BLOOD DIPSTICK</td&gt ; <td>NEGATIVE </td> <td>NEGATIVE</td&gt ; </tr> <tr> <td>UAVOLUME FOR EXAM</ td> <td>Note mL</td> <td>(12mL STD)</ td> </tr> <tr> <td>UA SPECIFIC GRAVITY</td><td>1.010 </td> <td>1.015-1.025< /td> </tr> <tr> <td>UR PH</td&gt ; <td>7.0 </td> <td>5.0-7.0</td> </tr> <tr> <th colspan="10"> URINALYSIS, ROUTINE - 09/10/13 11:30</th> </tr> <tr > <td>UA LEUKOCYTE ESTERASE DIPSTICK</td> < td>NEGATIVE </td> <td>NEGATIVE</td> </tr > <tr> <td>UA NITRITE DIPSTICK</td> <td>NEGATIVE </td> <td>NEGATIVE</td> </tr> <tr> <td>UA PROTEIN DIPSTICK</td> <td>NEGATIVE </td> <td>NEGATIVE</td> </tr> <tr> <td>UA GLUCOSE DIPSTICK</td > <td>NEGATIVE </td> <td>NEGATIVE</td& gt; </tr> <tr> <td>UA KETONE DIPSTICK& lt;/td> <td>NEGATIVE </td> <td>NEGATIVE</td&gt ; </tr> <tr> <td>UA UROBILINOGEN DIPSTICK</td> <td>NORMAL </td> <td> NORMAL</td> </tr> <tr> <td>UA BILIRUBIN DIPSTICK</td> <td>NEGATIVE </td> & lt;td>NEGATIVE</td> </tr> <tr> < td>UA BLOOD DIPSTICK</td> <td>NEGATIVE </td> <td>NEGATIVE</td> </tr> <tr> <td>UA VOLUME FOR EXAM</td> <td>Note mL</td> <td>(12mL STD)</td> </tr> <tr> <td>UA SPECIFIC GRAVITY</td> <td>1.010 </ td> <td>1.015-1.025</td></tr> <tr> <td>UR PH</td> <td>7.0 </td> & lt;td>5.0-7.0</td> </tr> <tr> < th colspan="10">TROPONIN I - 09/10/13 15:56</th> </ tr> <tr><td>TROPONIN I</td> <td>& lt; 0.02 ng/mL</td> <td>< 0.07</td> &lt ;/tr> <tr> <th colspan="10">TROPONIN I - 09/10/13 15:56</th> </tr> <tr> <td >TROPONIN I</td> <td>< 0.02 ng/mL</td> <td>< 0.07</td> </tr> <tr> <th colspan="10">TROPONIN I - 09/11/13 00:13</th> </tr> <tr> <td>TROPONIN I</td> <td>< 0.02 ng/mL</td> <td>< 0.07</td> </tr> <tr> <th colspan=&quot ;10">TROPONIN I - 09/11/13 00:13</th> </tr> & lt;tr> <td>TROPONIN I</td> <td>< 0.02 ng/ mL</td> <td>< 0.07</td> </tr> <tr> <th colspan="10">CBC - 09/11/13 04:45& lt;/th> </tr> <tr> <td>MEAN CELL HGB</ td> <td>31.7pg</td> <td>27.0-33.0</td& gt; </tr> <tr> <td>MEAN CELL HGB CONCENTRATION</td> <td>34.1 g/dL</td> <td >32.0-37.0</td> </tr> <tr> <td&gt ;MEAN CELL VOLUME</td> <td>92.8 fl</td> < td>80.0-100.0</td> </tr> <tr> <td >RED BLOOD CELL</td> <td>4.01 m/cumm</td> <td>4.00-6.00</td> </tr> <tr> & lt;td>RED CELL DISTRIBUTION WIDTH</td> <td>13.2 &#37 ;</td> <td>11.0-15.6</td> </tr> & lt;tr> <td>WHITE BLOOD CELL</td> <td>5.5 k/cumm</td> <td>5.0-10.0</td> </tr> <tr> <td>HEMOGLOBIN</td> <td>12.7 gm/dL</td> <td>14.0-18.0</td> </tr> <tr> <td>HEMATOCRIT</td> <td>37.2 %</td> <td>40.0-54.0</td> </tr> <tr> <td>PLATELET COUNT</td><td>137 k/ cumm</td> <td>150-400</td> </tr> <tr> <th colspan="10">PROTHROMBIN TIME WITH INR - 09/11/13 04:45</th> </tr> <tr> <td >INTERNATIONAL NORMAL RATIO</td> <td>2.5 </td> & lt;td>0.9-1.1</td> </tr> <tr> <td >PROTHROMBIN TIME</td> <td>28.0 sec</td> <td>9.3-12.2</td> </tr> <tr> < th colspan="10">CBC - 09/11/13 04:45</th> </tr> <tr> <td>MEAN CELL HGB</td> <td& gt;31.7 pg</td> <td>27.0-33.0</td> </tr> <tr> <td>MEAN CELL HGB CONCENTRATION</td> <td>34.1 g/dL</td> <td>32.0-37.0</td> & lt;/tr> <tr> <td>MEAN CELL VOLUME</td> <td>92.8 fl</td> <td>80.0-100.0</td> </tr> <tr> <td>RED BLOOD CELL</td> <td>4.01 m/cumm</td> <td>4.00-6.00</td&gt ; </tr> <tr> <td>RED CELL DISTRIBUTION WIDTH</td> <td>13.2 %</td> <td&gt ;11.0-15.6</td> </tr> <tr> <td> WHITE BLOOD CELL</td> <td>5.5 k/cumm</td> <td> 5.0-10.0</td> </tr> <tr> <td> HEMOGLOBIN</td> <td>12.7 gm/dL</td> <td& gt;14.0-18.0</td> </tr> <tr> <td> HEMATOCRIT</td> <td>37.2 %</td> < td>40.0-54.0</td> </tr> <tr> <td& gt;PLATELET COUNT</td> <td>137 k/cumm</td> & lt;td>150-400</td> </tr> <tr> < th colspan="10">PROTHROMBINTIME WITH INR - 09/11/13 04:45</th&gt ; </tr> <tr> <td>INTERNATIONAL NORMAL RATIO</td> <td>2.5 </td> <td>0.9-1.1& lt;/td> </tr> <tr> <td>PROTHROMBIN TIME</td> <td>28.0 sec</td> <td>9.3- 12.2</td> </tr> <tr> <th colspan=& quot;10">L100.0050 - 02/05/17 18:23</th> </tr> <tr> <td>WBC - WHITE BLOOD COUNT</td> < td>8.3 T/MM3</td> <td>4.5-11.0</td> </tr > <tr> <td>RED BLOOD COUNT</td> & lt;td>4.13 M/MM3</td> <td>4.50-5.90</td> & lt;/tr> <tr> <td>HGB - HEMOGLOBIN</td> <td>12.9 GM/DL</td> <td>13.5-17.5</td> </tr> <tr> <td>HCT - HEMATOCRIT</td> <td>38.2 %</td> <td>41-53</td> </tr> <tr> <td>MEAN CORPUSCULAR VOLUME< /td> <td>92.5 UM3</td> <td>80-100</td& gt; </tr> <tr> <td>MEAN CORPUSCULAR HGB </td> <td>31.2 UUG</td> <td>26-34</td> </tr> <tr> <td>MEAN CORPUSCULAR HGB CONC(MCHC</td> <td>33.8 GM/DL</td> <td&gt ;31-37</td> </tr> <tr> <td> RDWSTANDARD DEVIATION</td> <td>42.0 FL</td> <td>36.9-50.2</td> </tr> <tr> &lt ;td>PLT - PLATELET COUNT</td> <td>121 T/MM3</td> <td>130-400</td> </tr> <tr> &lt ;td>MEAN PLATELET VOLUME</td> <td>9.9 UM3</td> <td>9.4-12.4</td> </tr> <tr> & lt;th colspan="10">L100.0105 - 08 18:23</th> &lt ;/tr> <tr> <td>NEUTROPHILS % (MANUAL)< /td> <td>46.0 %</td> <td>33-66</td> </tr> <tr> <td>BAND NEUTROPHILS&# 37;</td> <td>48.0 %</td> <td>0 -6</td> </tr> <tr> <td>LYMPHOCYTES % (MANUAL)</td> <td>4.0 %</td> & lt;td>23-45</td> </tr> <tr> <td> EOSINOPHILS % (MANUAL)</td> <td>1.0 %</ td> <td>0-4</td> </tr> <tr> <td>METAMYELOCYTES %</td> <td>1.0 & amp;#37;</td> <td>0-0</td> </tr> <tr> <td>PROLYMPHOCYTES %</td> < td>3.8 T/MM3</td> <td>1.8-7.7</td> </tr& gt; <tr> <td>PLASMA CELLS %</td> <td>4.0 T/MM3</td> <td>NRG</td> &lt ;/tr> <tr> <td>MONOCYTES # (MANUAL)</td> <td>0.1 T/MM3</td> <td>0-0.5</td> </tr> <tr> <td>METAMYELOCYTES #</td> <td>0.1 T/MM3</td> <td>NRG</td> </ tr> <tr> <td>Lymphocytes # (Manual)</td> <td>0.3 T/MM3</td> <td>1-4.8</td> &lt ;/tr> <tr> <td>LRBCMOR</td> <td >Normal </td> <td>NRG</td> </tr> & lt;tr> <th colspan="10">L200.0020 - 02/05/17 18:23& lt;/th></tr> <tr> <td>FUNGAL CULTURE.</ td> <td>1.1 MG/DL</td> <td>0.8-1.5</td > </tr> <tr> <td>FUNGAL CULTURE, BLOOD.</td> <td>18 RATIO</td> <td>6-26 </td> </tr> <tr> <td>NA - Sodium& lt;/td> <td>135 MEQ/L</td> <td>134-144</td&gt ; </tr> <tr> <td>Potassium</td> <td>4.1 MEQ/L</td> <td>3.6-5</td> </tr> <tr> <td>Chloride</td> & lt;td>100 MEQ/L</td> <td>98-107</td> </ tr> <tr> <td>CO2 - Carbon Dioxide</td> <td>20 MEQ/L</td> <td>22-30</td> &lt ;/tr> <tr> <td>Anion Gap</td> < td>15 MEQ/L</td> <td>5-15</td> </tr> <tr> <td>BUN - Blood Urea Nitrogen</td> <td>20.0MG/DL</td> <td>9-20</td> & lt;/tr> <tr> <td>Glomerular Filtration Rate</ td> <td>63 </td> <td>NRG</td> </tr> <tr> <td>Glucose</td> <td>105 MG/DL</td> <td>75-110</td> </ tr> <tr> <td>Osmolality,Calculated</td> <td>263 MOSM/KG</td> <td>261-280</td> </ tr> <tr> <td>Calcium</td> <td& gt;9.3 MG/DL</td> <td>8.4-10.2</td> </tr&gt ; <tr> <td>Bilirubin,Total</td> < td>3.70 MG/DL</td> <td>0.20-1.30</td> </ tr> <tr> <td>Alkaline Phosphatase</td> <td>160 U/L</td> <td>38-126</td> & lt;/tr> <tr> <td>AST - Aspartate Amino Transfer& lt;/td> <td>417 U/L</td> <td>17-59</td > </tr> <tr> <td>ALT</td> & lt;td>224 U/L</td> <td>21-72</td> </tr& gt; <tr> <td>TP - Total Protein</td> <td>6.4 G/DL</td> <td>6.3-8.2</td> </ tr> <tr> <td>Albumin Level</td> &lt ;td>3.8 G/DL</td> <td>3.5-5.0</td> </tr& gt; <tr> <td>Globulin</td> <td> 2.6 G/DL</td> <td>2.4-3.6</td> </tr> <tr> <td>Albumin/Globulin Ratio</td> & lt;td>1.5 RATIO</td> <td>1.1-2.2</td> </ tr> <tr> <td>LICTERUS</td> <td>& lt; 2 </td> <td>0-7</td> </tr> & lt;tr> <td>LHEMOLYSIS</td> <td>< 15 </td> <td>0-25</td> </tr> < tr> <td>LTURBIDITY</td> <td>< 20 </ td> <td>0-20</td> </tr> <tr> <th colspan="10">L300.3490 - 02/05/17 18:23</th> </tr> <tr> <td>Troponin I</td> <td>< 0.012 ng/ml</td> <td>0-0.12< /td> </tr> <tr> <th colspan="10"&gt ;L600.0100 - 02/05/17 19:57</th> </tr> <tr> <td>POTASSIUM</td> <td>Urine, Clean Catch </ td> <td>NRG</td> </tr> <tr> <td>CHLORIDE</td> <td>YELLOW </td> <td>YELLOW</td> </tr> <tr> <td>ANION GAP</td> <td>CLEAR </td> <td& gt;NRG</td> </tr> <tr> <td>BLOOD UREA NITROGEN</td> <td>6.0 </td> <td> 5.0-8.0</td> </tr> <tr> <td>BUN/ CREATININE RATIO</td> <td>TRACE </td> <td >NEGATIVE</td> </tr> <tr> <td> GLUCOSE</td> <td>NEGATIVE </td> <td> NEGATIVE</td> </tr> <tr> <td> CALCIUM</td> <td>NEGATIVE </td> <td> NEGATIVE</td> </tr> <tr> <td> BILIRUBIN, CONJUG &amp; UNCONJUG</td> <td>NEGATIVE & lt;/td> <td>NEGATIVE</td> </tr> <tr&gt ; <td>Specific [place],Urine</td> <td>1.010 </td> <td>1.015-1.025</td> </tr> <tr> <td>Leukocyte Esterase,Urine</td> < td>NEGATIVE </td> <td>NEGATIVE</td> </tr > <tr> <td>Nitrate,Urine</td> <td> NEGATIVE </td> <td>NEGATIVE</td> </tr> <tr> <td>Urobilinogen,Urine</td> < td>1.0 EU/DL</td> <td>NORMAL</td> </tr> <tr> <td>Occult Blood,Urine - Dipstick</td> <td>NEGATIVE </td> <td>NEGATIVE</td> </tr> <tr> <td>Urine Microscopic (UA)&lt ;/td> <td>Microscopic Not Ind. </td> <td>NRG& lt;/td> </tr> <tr> <th colspan="10 ">M110.0180 - 02/05/17 20:25</th> </tr> <tr&gt ; <td>ANTI-D</td> <td> </td> <td>NRG</td> </tr> <tr> <td& gt;Gram Stain w/BC</td> <td> </td> <td& gt;NRG</td> </tr> <tr> <th colspan=& quot;10">L300.4950 - 02/05/17 20:25</th> </tr> <tr> <td>Lipase</td> <td>123 U/L< /td> <td>23-300</td> </tr> <tr&gt ; <th colspan="10">L200.2066 - 02/05/17 20:25</th&gt ; </tr> <tr> <td>Lactate</td> <td>3.0 MMOL/L</td> <td>0.6-2.2</td> </tr> <tr> <th colspan="10"> L200.206702/05/17 20:25</th> </tr> <tr> <td>Procalcitonin</td> <td>33.14 NG/ML</td&gt ; <td>NRG</td> </tr> <tr> <th colspan="10">LACTIC ACID - 02/06/17 03:22</th> </tr> <tr> <td>LACTIC ACID</td> <td>3.5 mmol/L</td> <td>0.5-2.0</td> </tr> <tr> <th colspan="10">B- TYPE NATRIURETIC PEPTIDE - 02/06/17 03:22</th> </tr> <tr > <td>B-TYPE NATRIURETIC PEPTIDE</td> <td&gt ;869 pg/mL</td> <td>< 100</td> </tr& gt; <tr> <th colspan="10">CBC W/DIFF - 12/18 03:22</th> </tr> <tr> <td> GRANULOCYTE #</td> <td>16.7 k/cumm</td> < td>2.0-9.0</td> </tr> <tr> <td&gt ;LYMPHOCYTE #</td> <td>0.4 k/cumm</td> < td>1.0-4.0</td> </tr> <tr> <td&gt ;LYMPHOCYTE %</td> <td>2 %</td> < td>20-30</td> </tr> <tr> <td> MEAN CELL HGB</td> <td>31.7 pg</td> <td& gt;27.0-33.0</td> </tr> <tr> <td> MEAN CELL HGB CONCENTRATION</td> <td>34.8 g/dL</td> <td>32.0-37.0</td> </tr> <tr> <td>MEAN CELL VOLUME</td> <td>91.1 fl</td&gt ; <td>80.0-100.0</td> </tr> <tr> <td>MONOCYTE #</td> <td>0.7 k/cumm</td> <td>0.1-1.0</td> </tr> <tr> <td>MONOCYTE %</td> <td>4 %< /td> <td>4-6</td> </tr> <tr> <td>MEAN PLATELET VOLUME</td> <td>10.3 fl</td& gt; <td>8.5-10.9</td> </tr> <tr> <td>REDBLOOD CELL</td> <td>3.60 m/cumm</ td> <td>4.00-6.00</td> </tr> <tr& gt; <td>RED CELL DISTRIBUTION WIDTH</td> <td> 13.0 %</td> <td>11.0-15.6</td> </tr > <tr> <td>WHITE BLOOD CELL</td> & lt;td>18.2 k/cumm</td> <td>5.0-10.0</td> & lt;/tr> <tr> <td>HEMOGLOBIN</td> & lt;td>11.4 gm/dL</td> <td>14.0-18.0</td> & lt;/tr> <tr> <td>HEMATOCRIT</td> & lt;td>32.8 %</td> <td>40.0-54.0</td> </tr> <tr> <td>PLATELET COUNT</td> <td>102 k/cumm</td> <td>150-400</td> </tr> <tr> <th colspan="10"> MANUAL DIFF(R) - 02/06/17 03:22</th> </tr> <tr> <td>BAND %</td> <td>32 %&lt ;/td> <td>0-10</td> </tr> <tr&gt ; <td>DIFFERENTIAL</td> <td>MANUAL </td& gt; <td /> </tr> <tr> <td& gt;METAMYELOCYTE %</td> <td>2 %</td> <td /> </tr> <tr> <td>RBC MORPH</td> <td>NOTED </td> <td /> </tr> <tr> <td>SEGMENTED NEUTROPHIL &# 37;</td> <td>60 %</td> <td>50- 70</td> </tr> <tr> <th colspan=&quot ;10">PROTHROMBIN TIME WITH INR - 02/06/17 03:22</th> </ tr> <tr> <td>INTERNATIONAL NORMAL RATIO</td&gt ; <td>1.4 </td> <td>0.9-1.1</td> </tr> <tr> <td>PROTHROMBIN TIME</td> <td>16.4 sec</td> <td>10.0-12.8</td> </tr> <tr> <th colspan="10"> METABOLIC PANEL, COMPREHN - 02/06/17 03:22</th> </tr> <tr& gt; <td>POTASSIUM</td> <td>3.9 mmol/L</td > <td>3.5-5.3</td> </tr> <tr> <td>EST GFR (MDRD)</td> <td>48 mL/min</ td> <td>> 59</td> </tr> < tr> <td>ANION GAP</td> <td>12 mmol/L</ td> <td>5-15</td> </tr> <tr> <td>EST CrCl (CG)</td> <td>37 mL/min</td&gt ; <td>> 59</td> </tr> <tr&gt ; <td>GLUCOSE</td> <td>109 mg/dL</td> <td>70-99</td> </tr> <tr> & lt;td>CALCIUM</td> <td>8.0 mg/dL</td> &lt ;td>8.5-10.1</td> </tr> <tr> <td& gt;BLOOD UREA NITROGEN</td> <td>22 mg/dL</td> <td>7-20</td> </tr> <tr> < td>CREATININE</td> <td>1.4 mg/dL</td> &lt ;td>0.7-1.3</td> </tr> <tr> <td& gt;SODIUM</td> <td>132 mmol/L</td> <td&gt ;135-148</td> </tr> <tr> <td> CHLORIDE</td> <td>101 mmol/L</td> <td> 98-110</td> </tr> <tr> <td>AST/ SGOT</td> <td>402 Units/L</td> <td>10- 37</td> </tr> <tr> <td>ALT/SGPT</td& gt; <td>340 Units/L</td> <td>< 66< /td> </tr> <tr> <td>CARBON DIOXIDE& lt;/td> <td>19 mmol/L</td> <td>21-32</ td> </tr> <tr> <td>TOTAL PROTEIN< /td> <td>5.7 gm/dL</td> <td>6.4-8.2</ td> </tr> <tr> <td>ALBUMIN</td&gt ; <td>2.7 gm/dL</td> <td>3.4-5.0</td> </tr> <tr> <td>BILI TOTAL</td> <td>3.9 mg/dL</td> <td>0.0-1.0</td> </tr> <tr> <td>ALKALINE PHOSPHATASE TOTAL</ td> <td>150 IU/L</td> <td>45-117</td& gt; </tr> <tr> <th colspan="10"& gt;PHOSPHORUS - 02/06/17 03:22</th> </tr> <tr> <td>PHOSPHORUS</td> <td>2.0 mg/dL</td> <td>2.5-4.9</td> </tr> <tr> <th colspan="10">BILI CONJUGATED - 02/06/17 03:22</th> </tr> <tr> <td>BILI CONJUGATED</td&gt ; <td>1.3 mg/dL</td> <td>0.0-0.3</td> </tr> <tr> <th colspan="10"> MAGNESIUM - 02/06/17 03:22</th> </tr> <tr> <td>MAGNESIUM</td> <td>1.5 mg/dL</td> <td>1.8-2.4</td> </tr> <tr> <th colspan="10">TROPONIN I - 02/06/17 03:22</th> & lt;/tr> <tr> <td>TROPONIN I</td> &lt ;td>0.03 ng/mL</td> <td>< 0.07</td> &lt ;/tr> <tr> <th colspan="10">LACTIC ACID - 02/06/17 03:22</th> </tr> <tr> <td >LACTIC ACID</td> <td>3.5 mmol/L</td> &lt ;td>0.5-2.0</td> </tr> <tr> <th colspan="10">B-TYPE NATRIURETIC PEPTIDE - 02/06/17 03:22</th&gt ; </tr> <tr> <td>B-TYPE NATRIURETIC PEPTIDE</td> <td>869 pg/mL</td> <td>& amp;lt; 100</td> </tr> <tr> <th colspan="10">CBC W/DIFF - 02/06/17 03:22</th> </tr& gt; <tr> <td>GRANULOCYTE #</td> < td>16.7 k/cumm</td> <td>2.0-9.0</td> </tr > <tr> <td>LYMPHOCYTE #</td> < td>0.4 k/cumm</td> <td>1.0-4.0</td> </tr > <tr> <td>LYMPHOCYTE %</td> < td>2 %</td> <td>20-30</td> </tr& gt; <tr> <td>MEAN CELL HGB</td> < td>31.7 pg</td> <td>27.0-33.0</td> </tr& gt; <tr> <td>MEAN CELL HGB CONCENTRATION</td> <td>34.8 g/dL</td> <td>32.0-37.0</td> </tr> <tr> <td>MEAN CELL VOLUME</td& gt; <td>91.1 fl</td> <td>80.0-100.0</td& gt; </tr> <tr> <td>MONOCYTE #</td&gt ;<td>0.7 k/cumm</td> <td>0.1-1.0</td> & lt;/tr> <tr> <td>MONOCYTE %</td> <td>4 %</td> <td>4-6</td> &lt ;/tr> <tr> <td>MEAN PLATELET VOLUME</td> <td>10.3 fl</td> <td>8.5-10.9</td></ tr> <tr> <td>RED BLOOD CELL</td> & lt;td>3.60 m/cumm</td> <td>4.00-6.00</td> & lt;/tr> <tr> <td>RED CELL DISTRIBUTION WIDTH</td> <td>13.0 %</td> <td>11.0-15.6</td> </tr> <tr> <td>WHITE BLOOD CELL</td&gt ; <td>18.2 k/cumm</td> <td>5.0-10.0</td& gt; </tr> <tr> <td>HEMOGLOBIN</td> <td>11.4 gm/dL</td> <td>14.0-18.0</td> </tr> <tr><td>HEMATOCRIT</td> & lt;td>32.8 %</td> <td>40.0-54.0</td> </tr> <tr> <td>PLATELET COUNT</td> <td>102 k/cumm</td> <td>150-400</td> </tr> <tr> <th colspan="10">MANUAL DIFF(R ) - 02/06/17 03:22</th> </tr> <tr> <td&gt ;BAND %</td> <td>32 %</td> & lt;td>0-10</td> </tr> <tr><td> DIFFERENTIAL</td> <td>MANUAL </td> <td /& gt;</tr> <tr> <td>METAMYELOCYTE %</ td> <td>2 %</td> <td /> & lt;/tr> <tr> <td>RBC MORPH</td> & lt;td>NOTED </td> <td /> </tr> <tr > <td>SEGMENTED NEUTROPHIL %</td> < td>60%</td> <td>50-70</td> </tr& gt; <tr> <th colspan="10">PROTHROMBIN TIME WITH INR - 02/06/17 03:22</th> </tr> <tr> & lt;td>INTERNATIONAL NORMAL RATIO</td> <td>1.4 </td&gt ; <td>0.9-1.1</td> </tr> <tr> <td>PROTHROMBIN TIME</td> <td>16.4 sec</td& gt; <td>10.0-12.8</td> </tr> <tr&gt ; <th colspan="10">METABOLIC PANEL, COMPREHN - 03:22</th> </tr> <tr> <td> POTASSIUM</td> <td>3.9 mmol/L</td> <td&gt ;3.5-5.3</td> </tr> <tr> <td>EST GFR (MDRD)</td> <td>48 mL/min</td> <td&gt ;> 59</td> </tr> <tr> <td> ANION GAP</td> <td>12 mmol/L</td> <td> 5-15</td> </tr> <tr> <td>EST CrCl (CG)</td> <td>37 mL/min</td> <td>&gt ; 59</td> </tr> <tr> <td>GLUCOSE</td& gt; <td>109 mg/dL</td> <td>70-99</td> </tr> <tr> <td>CALCIUM</td> <td>8.0 mg/dL</td> <td>8.5-10.1</td> </tr> <tr> <td>BLOOD UREA NITROGEN</td> <td>22 mg/dL</td> <td>7-20</td> & lt;/tr> <tr> <td>CREATININE</td> & lt;td>1.4 mg/dL</td> <td>0.7-1.3</td> </ tr> <tr> <td>SODIUM</td> <td&gt ;132 mmol/L</td> <td>135-148</td> </tr> <tr> <td>CHLORIDE</td> <td> 101 mmol/L</td> <td>98-110</td> </tr> & lt;tr> <td>AST/SGOT</td> <td>402 Units/L& lt;/td> <td>10-37</td> </tr> <tr& gt; <td>ALT/SGPT</td> <td>340 Units/L</td > <td>< 66</td> </tr> <tr& gt; <td>CARBON DIOXIDE</td> <td>19 mmol/L&lt ;/td> <td>21-32</td> </tr> <tr&gt ; <td>TOTAL PROTEIN</td> <td>5.7 gm/dL</td& gt; <td>6.4-8.2</td> </tr> <tr> <td>ALBUMIN</td> <td>2.7 gm/dL</td> <td>3.4-5.0</td> </tr> <tr> < td>BILI TOTAL</td> <td>3.9 mg/dL</td> &lt ;td>0.0-1.0</td> </tr> <tr> <td& gt;ALKALINE PHOSPHATASE TOTAL</td> <td>150 IU/L</td> <td>45-117</td> </tr> <tr> &lt ;th colspan="10">PHOSPHORUS - 02/06/17 03:22</th> < /tr> <tr> <td>PHOSPHORUS</td> < td>2.0 mg/dL</td> <td>2.5-4.9</td> </tr& gt; <tr> <th colspan="10">BILI CONJUGATED - 02/06/17 03:22</th> </tr> <tr> <td >BILI CONJUGATED</td> <td>1.3 mg/dL</td> <td>0.0-0.3</td> </tr> <tr> < th colspan="10">MAGNESIUM - 02/06/17 03:22</th> </ tr> <tr> <td>MAGNESIUM</td> <td& gt;1.5 mg/dL</td> <td>1.8-2.4</td> </tr&gt ; <tr> <th colspan="10">TROPONIN I - 02/06 03:22</th> </tr> <tr> <td> TROPONIN I</td> <td>0.03 ng/mL</td> <td& gt;< 0.07</td> </tr> <tr> <th colspan="10">GRAM STAIN - 02/06/17 12:25</th> </tr& gt; <tr> <td>Microbiology</td> <td > </td> <td /> </tr> <tr> <th colspan="10">GRAM STAIN - 02/06/17 12:25</th> </tr> <tr> <td>Microbiology</td> <td> </td> <td /></tr> <tr> <th colspan="10">CBC - 02/06/17 17:00</th> </tr> <tr> <td>COMMENT</td> & lt;td>REVIEWED </td> <td /> </tr> & lt;tr> <td>MEAN CELL HGB</td> <td>31.2 pg </td> <td>27.0-33.0</td> </tr> <tr& gt; <td>MEAN CELL HGB CONCENTRATION</td> <td&gt ;33.6 g/dL</td> <td>32.0-37.0</td> </tr&gt ; <tr> <td>MEAN CELL VOLUME</td> < td>92.8 fl</td> <td>80.0-100.0</td> </tr > <tr> <td>MEAN PLATELETVOLUME</td> <td>10.2 fl</td> <td>8.5-10.9</td> </tr& gt; <tr> <td>RED BLOOD CELL</td> < td>3.62 m/cumm</td> <td>4.00-6.00</td> < /tr> <tr> <td>RED CELL DISTRIBUTION WIDTH</td> <td>13.3 %</td> <td>11.0-15.6</td> </tr> <tr> <td>WHITE BLOOD CELL</td&gt ; <td>16.5 k/cumm</td> <td>5.0-10.0</td& gt; </tr> <tr> <td>HEMOGLOBIN</td> <td>11.3 gm/dL</td> <td>14.0-18.0</td&gt ; </tr> <tr> <td>HEMATOCRIT</td> <td>33.6 %</td> <td>40.0-54.0</td> </tr> <tr> <td>PLATELET COUNT</td> <td>91 k/cumm</td> <td>150-400</td> </tr> <tr> <th colspan="10">METABOLIC PANEL, COMPREHN - 02/06/17 17:00</th> </tr> <tr&gt ; <td>POTASSIUM</td> <td>4.3 mmol/L</td& gt; <td>3.5-5.3</td> </tr> <tr> <td>EST GFR (MDRD)</td> <td>57 mL/min</td&gt ; <td>> 59</td> </tr> <tr&gt ; <td>ANION GAP</td> <td>9 mmol/L</td> <td>5-15</td> </tr> <tr> <td>EST CrCl (CG)</td> <td>43 mL/min</td> & lt;td>> 59</td> </tr> <tr> & lt;td>GLUCOSE</td> <td>99 mg/dL</td> < td>70-99</td> </tr> <tr> <td> CALCIUM</td> <td>7.3 mg/dL</td> <td>8.5- 10.1</td> </tr> <tr> <td>BLOOD UREA NITROGEN</td> <td>20 mg/dL</td> <td& gt;7-20</td> </tr> <tr> <td>CREATININE& lt;/td> <td>1.2 mg/dL</td> <td>0.7-1.3&lt ;/td> </tr> <tr> <td>SODIUM</td& gt; <td>135 mmol/L</td> <td>135-148</td& gt; </tr> <tr> <td>CHLORIDE</td> <td>105 mmol/L</td> <td>98-110</td> </tr> <tr> <td>AST/SGOT</td> <td>257 Units/L</td> <td>10-37</td> </tr> <tr> <td>ALT/SGPT</td> <td>288 Units/L</td> <td>< 66</td> </tr> <tr> <td>CARBON DIOXIDE</td> <td>21 mmol/L</td> <td>21-32</td> </tr> <tr> <td>TOTAL PROTEIN</td> <td>5.6 gm/dL</td> <td>6.4-8.2</td> </tr> <tr> <td>ALBUMIN</td> & lt;td>2.5 gm/dL</td> <td>3.4-5.0</td> </tr> <tr> <td>BILI TOTAL</td> <td> 3.7 mg/dL</td> <td>0.0-1.0</td> </tr> <tr> <td>ALKALINE PHOSPHATASE TOTAL</td> <td>139IU/L</td> <td>45-117</td> &lt ;/tr> <tr> <th colspan="10">CBC - 02/06 17:00</th> </tr> <tr> <td> COMMENT</td> <td>REVIEWED </td> <td /&gt ; </tr> <tr> <td>MEAN CELL HGB</td> <td>31.2 pg</td> <td>27.0-33.0</td> </tr> <tr> <td>MEAN CELL HGB CONCENTRATION</ td> <td>33.6 g/dL</td> <td>32.0-37.0</ td> </tr> <tr> <td>MEAN CELL VOLUME& lt;/td> <td>92.8 fl</td> <td>80.0-100.0& lt;/td> </tr> <tr> <td>MEAN PLATELET VOLUME</td> <td>10.2 fl</td> <td >8.5-10.9</td> </tr> <tr> <td> RED BLOOD CELL</td> <td>3.62 m/cumm</td> &lt ;td>4.00-6.00</td> </tr> <tr> <td >RED CELL DISTRIBUTION WIDTH</td> <td>13.3 %< /td> <td>11.0-15.6</td> </tr> <tr> <td>WHITE BLOOD CELL</td> <td>16.5 k/cumm< /td> <td>5.0-10.0</td> </tr> <tr& gt; <td>HEMOGLOBIN</td> <td>11.3 gm/dL</td> <td>14.0-18.0</td> </tr> <tr> <td>HEMATOCRIT</td> <td>33.6 %</td> <td>40.0-54.0</td> </tr> <tr> < td>PLATELET COUNT</td> <td>91 k/cumm</td> &lt ;td>150-400</td> </tr> <tr> <th colspan="10">METABOLIC PANEL, [facility] - 02/06/17 17:00</th> </tr> <tr> <td>POTASSIUM</td> <td>4.3 mmol/L</td> <td>3.5-5.3</td> </tr> <tr> <td>EST GFR (MDRD)</td&gt ; <td>57 mL/min</td> <td>> 59</td& gt; </tr> <tr> <td>ANION GAP</td&gt ; <td>9 mmol/L</td> <td>5-15</td> </tr> <tr> <td>EST CrCl (CG)</td> <td>43 mL/min</td> <td>> 59</td> &lt ;/tr> <tr> <td>GLUCOSE</td> <td >99 mg/dL</td> <td>70-99</td> </tr> <tr> <td>CALCIUM</td> <td>7.3 mg/dL</td> <td>8.5-10.1</td> </tr> < tr> <td>BLOOD UREA NITROGEN</td> <td>20 mg/dL</td> <td>7-20</td> </tr> & lt;tr><td>CREATININE</td> <td>1.2 mg/dL</td&gt ; <td>0.7-1.3</td> </tr> <tr> <td>SODIUM</td> <td>135 mmol/L</td> <td>135-148</td> </tr> <tr> &lt ;td>CHLORIDE</td> <td>105 mmol/L</td> &lt ;td>98-110</td> </tr> <tr> <td&gt ;AST/SGOT</td> <td>257 Units/L</td> <td& gt;10-37</td> </tr> <tr> <td>ALT/ SGPT</td> <td>288 Units/L</td> <td>& amp;lt; 66</td> </tr> <tr> <td> CARBON DIOXIDE</td> <td>21 mmol/L</td> < td>21-32</td> </tr> <tr> <td> TOTAL PROTEIN</td> <td>5.6 gm/dL</td> <td& gt;6.4-8.2</td> </tr> <tr> <td> ALBUMIN</td> <td>2.5 gm/dL</td> <td> 3.4-5.0</td> </tr> <tr> <td>BILI TOTAL</td> <td>3.7 mg/dL</td> <td>0.0- 1.0</td> </tr> <tr> <td>ALKALINE PHOSPHATASE TOTAL</td> <td>139 IU/L</td> &lt ;td>45-117</td> </tr> <tr> <th colspan="10">CBC - 02/07/17 03:59</th> </tr> <tr> <td>MEAN CELL HGB</td> <td> 31.7 pg</td> <td>27.0-33.0</td> </tr> <tr> <td>MEAN CELL HGB CONCENTRATION</td> <td>34.6 g/dL</td> <td>32.0-37.0</td> </tr> <tr> <td>MEAN CELL VOLUME</td> <td>91.6 fl</td> <td>80.0-100.0</td> </tr> <tr> <td>MEAN PLATELET VOLUME</ td> <td>11.0 fl</td> <td>8.5-10.9</td& gt; </tr> <tr> <td>RED BLOOD CELL</td&gt ; <td>3.34 m/cumm</td> <td>4.00-6.00</td& gt; </tr> <tr> <td>RED CELL DISTRIBUTION WIDTH</td> <td>13.6 %</td> <td>11.0-15.6</td> </tr> <tr> <td>WHITE BLOOD CELL</td> <td>12.4 k/cumm</td& gt; <td>5.0-10.0</td> </tr> <tr> <td>HEMOGLOBIN</td> <td>10.6 gm/dL</td&gt ; <td>14.0-18.0</td> </tr> <tr> <td>HEMATOCRIT</td> <td>30.6 %</td& gt; <td>40.0-54.0</td> </tr> <tr> <td>PLATELET COUNT</td> <td>90 k/cumm</ td> <td>150-400</td> </tr> <tr&gt ; <th colspan="10">[facility] PANEL, [facility] - 02/07/17 03:59 </th> </tr> <tr> <td>POTASSIUM&lt ;/td> <td>4.0 mmol/L</td> <td>3.5-5.3< /td> </tr> <tr> <td>EST GFR (MDRD)& lt;/td> <td>> 60 mL/min</td> <td>& amp;gt; 59</td> </tr> <tr> <td> ANION GAP</td> <td>11 mmol/L</td> <td>5-15</ td> </tr> <tr> <td>EST CrCl (CG)< /td> <td>57 mL/min</td> <td>> 59& lt;/td> </tr> <tr> <td>GLUCOSE</ td> <td>91 mg/dL</td> <td>70-99</td&gt ; </tr> <tr> <td>CALCIUM</td> <td>7.2 mg/dL</td> <td>8.5-10.1</td> &lt ;/tr> <tr> <td>BLOOD UREA NITROGEN</td> <td>21 mg/dL</td> <td>7-20</td> & lt;/tr> <tr> <td>CREATININE</td> & lt;td>0.9 mg/dL</td> <td>0.7-1.3</td> </ tr> <tr> <td>SODIUM</td> <td&gt ;134 mmol/L</td> <td>135-148</td> </tr> <tr> <td>CHLORIDE</td> <td>105 mmol/L& lt;/td> <td>98-110</td> </tr> <tr > <td>AST/SGOT</td> <td>181 Units/L</ td> <td>10-37</td> </tr> <tr> <td>ALT/SGPT</td> <td>224 Units/L</td> <td>< 66</td> </tr> <tr> <td>CARBON DIOXIDE</td> <td>18 mmol/L</td> <td>21-32</td> </tr> <tr> <td>TOTAL PROTEIN</td> <td>5.3 gm/dL</td> <td>6.4-8.2</td> </tr> <tr> < td>ALBUMIN</td> <td>2.3 gm/dL</td> <td >3.4-5.0</td> </tr> <tr> <td> BILI TOTAL</td> <td>2.6 mg/dL</td> <td> 0.0-1.0</td> </tr> <tr> <td>ALKALINE PHOSPHATASE TOTAL</td> <td>120 IU/L</td> &lt ;td>45-117</td> </tr> <tr> <th colspan="10">PHOSPHORUS - 02/07/17 03:59</th> </tr& gt; <tr> <td>PHOSPHORUS</td> <td> 2.2 mg/dL</td> <td>2.5-4.9</td> </tr> <tr> <th colspan="10">MAGNESIUM - 02/07/17 03:59</th> </tr> <tr> <td> MAGNESIUM</td> <td>1.9 mg/dL</td> <td> 1.8-2.4</td> </tr> <tr> <th colspan= "10">CBC - 02/07/17 03:59</th> </tr> <tr&gt ; <td>MEAN CELL HGB</td> <td>31.7pg</td& gt; <td>27.0-33.0</td> </tr> <tr&gt ; <td>MEAN CELL HGB CONCENTRATION</td> <td> 34.6 g/dL</td> <td>32.0-37.0</td> </tr> <tr> <td>MEAN CELL VOLUME</td> < td>91.6 fl</td> <td>80.0-100.0</td> </tr > <tr> <td>MEAN PLATELET VOLUME</td> <td>11.0 fl</td> <td>8.5-10.9</td> & lt;/tr> <tr> <td>RED BLOOD CELL</td> <td>3.34 m/cumm</td> <td>4.00-6.00</td> </tr> <tr> <td>RED CELL DISTRIBUTION WIDTH</td> <td>13.6 %</td> <td&gt ;11.0-15.6</td> </tr> <tr> <td> WHITE BLOOD CELL</td> <td>12.4 k/cumm</td> & lt;td>5.0-10.0</td> </tr> <tr> <td> HEMOGLOBIN</td> <td>10.6 gm/dL</td> <td& gt;14.0-18.0</td> </tr> <tr> <td> HEMATOCRIT</td> <td>30.6 %</td> < td>40.0-54.0</td> </tr><tr> <td> PLATELET COUNT</td> <td>90 k/cumm</td> <td> 150-400</td> </tr> <tr> <th colspan= "10">METABOLIC PANEL, [facility] - 02/07/17 03:59</th> & lt;/tr> <tr> <td>POTASSIUM</td> & lt;td>4.0 mmol/L</td> <td>3.5-5.3</td> < /tr> <tr> <td>EST GFR (MDRD)</td> & lt;td>> 60 mL/min</td> <td>> 59</td&gt ; </tr> <tr> <td>ANION GAP</td> <td>11 mmol/L</td> <td>5-15</td> </tr> <tr> <td>ESTCrCl (CG)</td> <td>57 mL/min</td> <td>> 59</td> </tr> <tr> <td>GLUCOSE</td> <td>91 mg/dL</td> <td>70-99</td> & lt;/tr> <tr> <td>CALCIUM</td> < td>7.2 mg/dL</td> <td>8.5-10.1</td> </tr > <tr> <td>BLOOD UREA NITROGEN</td> <td>21 mg/dL</td> <td>7-20</td> </ tr> <tr> <td>CREATININE</td> <td& gt;0.9 mg/dL</td> <td>0.7-1.3</td> </tr&gt ; <tr> <td>SODIUM</td> <td>134 mmol/L</td> <td>135-148</td> </tr> <tr> <td>CHLORIDE</td> <td>105 mmol /L</td> <td>98-110</td> </tr> &lt ;tr> <td>AST/SGOT</td> <td>181 Units/L</td& gt; <td>10-37</td> </tr> <tr> <td>ALT/SGPT</td> <td>224 Units/L</td> <td>< 66</td> </tr> <tr> <td>CARBON DIOXIDE</td> <td>18 mmol/L</td > <td>21-32</td> </tr> <tr> <td>TOTAL PROTEIN</td> <td>5.3 gm/dL</td& gt; <td>6.4-8.2</td> </tr> <tr> <td>ALBUMIN</td> <td>2.3 gm/dL</td> <td>3.4-5.0</td> </tr> <tr> & lt;td>BILI TOTAL</td> <td>2.6 mg/dL</td> <td>0.0-1.0</td> </tr> <tr> < td>ALKALINE PHOSPHATASE TOTAL</td> <td>120 IU/L</td& gt; <td>45-117</td> </tr> <tr> <th colspan="10">PHOSPHORUS - 02/07/17 03:59</th> </tr> <tr> <td>PHOSPHORUS</td> <td>2.2 mg/dL</td> <td>2.5-4.9</td> </tr> <tr> <th colspan="10"> MAGNESIUM - 02/07/17 03:59</th> </tr> <tr> <td>MAGNESIUM</td> <td>1.9 mg/dL</td> <td>1.8-2.4</td> </tr> <tr> &lt ;th colspan="10">METABOLIC PANEL, [facility] - 02/08/17 04:41</th& gt; </tr> <tr> <td>POTASSIUM</td&gt ; <td>3.6 mmol/L</td> <td>3.5-5.3</td&gt ; </tr> <tr> <td>EST GFR (MDRD)</td& gt; <td>> 60 mL/min</td> <td>&gt ; 59</td> </tr> <tr> <td>ANION GAP</td> <td>10 mmol/L</td> <td>5-15</td& gt; </tr> <tr> <td>EST CrCl (CG)</td > <td>> 60 mL/min</td> <td>> 59 </td> </tr> <tr> <td>GLUCOSE</ td> <td>74 mg/dL</td> <td>70-99</td&gt ; </tr> <tr> <td>CALCIUM</td> <td>7.4 mg/dL</td> <td>8.5-10.1</td> </tr> <tr> <td>BLOOD UREA NITROGEN</td > <td>17 mg/dL</td> <td>7-20</td> </tr> <tr> <td>CREATININE</td> <td>0.8 mg/dL</td> <td>0.7-1.3</td> </tr> <tr> <td>SODIUM</td> & lt;td>140 mmol/L</td> <td>135-148</td> < /tr> <tr> <td>CHLORIDE</td> <td >110 mmol/L</td> <td>98-110</td> </tr&gt ; <tr> <td>AST/SGOT</td> <td>103 Units /L</td> <td>10-37</td> </tr> < tr> <td>ALT/SGPT</td> <td>140 Units/L< /td> <td>< 66</td> </tr> < tr> <td>CARBON DIOXIDE</td> <td>20 mmol/L </td> <td>21-32</td> </tr> <tr > <td>TOTAL PROTEIN</td> <td>5.3 gm/dL&lt ;/td> <td>6.4-8.2</td> </tr> <tr& gt; <td>ALBUMIN</td> <td>2.3 gm/dL</td&gt ; <td>3.4-5.0</td> </tr> <tr> <td>BILI TOTAL</td> <td>1.8 mg/dL</td> <td>0.0-1.0</td> </tr> <tr> & lt;td>ALKALINE PHOSPHATASE TOTAL</td> <td>121 IU/L</ td> <td>45-117</td> </tr> <tr&gt ; <th colspan="10">MAGNESIUM - 02/08/17 04:41</th> </tr> <tr> <td>MAGNESIUM</td> <td>1.9 mg/dL</td> <td>1.8-2.4</td> & lt;/tr> <tr> <th colspan="10">CBC W/ DIFF - 02/08/17 04:41</th> </tr> <tr> & lt;td>BRENDEN CELLS</td> <td>NOTED </td> &lt ;td /> </tr> <tr> <td>COMMENT</td&gt ; <td>REVIEWED </td> <td /> </tr> <tr> <td>DOHLE BODIES</td> <td>NOTED </td > <td /> </tr> <tr> <td& gt;EOSINOPHIL #</td> <td>0.1 k/cumm</td> &lt ;td>0.1-0.5</td> </tr> <tr> <td& gt;EOSINOPHIL %</td> <td>1 %</td> <td>2-4</td> </tr> <tr> <td& gt;GRANULOCYTE #</td> <td>9.3 k/cumm</td> <td> 2.0-9.0</td> </tr> <tr> <td> GRANULOCYTE %</td> <td>86 %</td> <td>50-75</td> </tr> <tr> <td >LYMPHOCYTE #</td> <td>0.8 k/cumm</td> & lt;td>1.0-4.0</td> </tr> <tr> <td >LYMPHOCYTE %</td> <td>8 %</td> <td>20-30</td> </tr> <tr> <td>MEAN CELL HGB</td> <td>30.4 pg</td> <td>27.0-33.0</td> </tr> <tr> <td& gt;MEAN CELL HGB CONCENTRATION</td> <td>34.1 g/dL</td&gt ; <td>32.0-37.0</td> </tr> <tr> <td>MEAN CELL VOLUME</td> <td>89.0 fl</td > <td>80.0-100.0</td> </tr> <tr& gt; <td>MONOCYTE #</td> <td>0.5 k/cumm</ td> <td>0.1-1.0</td> </tr> <tr&gt ; <td>MONOCYTE %</td> <td>5 &#37 ;</td> <td>4-6</td> </tr> <tr> <td>MEAN PLATELET VOLUME</td> <td>10.9 fl</td > <td>8.5-10.9</td> </tr> <tr&gt ; <td>OVALOCYTES</td> <td>NOTED </td> <td /> </tr> <tr> <td> RED BLOOD CELL</td> <td>3.72 m/cumm</td> &lt ;td>4.00-6.00</td> </tr> <tr> <td >RED CELL DISTRIBUTION WIDTH</td> <td>13.7 %< /td> <td>11.0-15.6</td> </tr> <tr > <td>WHITE BLOOD CELL</td> <td>10.7 k/ cumm</td> <td>5.0-10.0</td> </tr> <tr> <td>HEMOGLOBIN</td> <td>11.3 gm /dL</td> <td>14.0-18.0</td> </tr> <tr> <td>HEMATOCRIT</td> <td>33.1 & amp;#37;</td> <td>40.0-54.0</td> </tr> <tr> <td>PLATELET COUNT</td> <td& gt;97 k/cumm</td> <td>150-400</td> </tr&gt ; <tr> <th colspan="10">METABOLIC PANEL, [facility] - 02/08/17 04:41</th> </tr> <tr> <td>POTASSIUM</td> <td>3.6 mmol/L</td> <td>3.5-5.3</td> </tr> <tr> <td>EST GFR (MDRD)</td> <td>> 60 mL/min</ td> <td>> 59</td> </tr> < tr> <td>ANION GAP</td> <td>10 mmol/L</ td> <td>5-15</td> </tr> <tr> <td>EST CrCl (CG)</td> <td>> 60 mL/min</ td> <td>> 59</td> </tr> < tr> <td>GLUCOSE</td> <td>74 mg/dL</td& gt; <td>70-99</td> </tr> <tr> <td>CALCIUM</td> <td>7.4 mg/dL</td> <td>8.5-10.1</td> </tr> <tr> & lt;td>BLOOD UREA NITROGEN</td> <td>17 mg/dL</td> <td>7-20</td> </tr> <tr> <td>CREATININE</td> <td>0.8 mg/dL</td> <td>0.7-1.3</td> </tr> <tr> &lt ;td>SODIUM</td> <td>140 mmol/L</td> < td>135-148</td> </tr> <tr> <td&gt ;CHLORIDE</td> <td>110 mmol/L</td> <td&gt ;98-110</td> </tr> <tr> <td>AST/ SGOT</td> <td>103 Units/L</td> <td>10- 37</td> </tr> <tr> <td>ALT/SGPT</td&gt ; <td>140 Units/L</td> <td><66</td > </tr> <tr> <td>CARBON DIOXIDE</ td> <td>20 mmol/L</td> <td>21-32</td> </tr> <tr> <td>TOTAL PROTEIN</td> <td>5.3 gm/dL</td> <td>6.4-8.2</td> </tr> <tr> <td>ALBUMIN</td> <td>2.3 gm/dL</td> <td>3.4-5.0</td> </tr> <tr> <td>BILI TOTAL</td> &lt ;td>1.8 mg/dL</td> <td>0.0-1.0</td> </tr> <tr> <td>ALKALINE PHOSPHATASE TOTAL</td> <td>121 IU/L</td> <td>45-117</td> </tr> <tr> <th colspan="10"> MAGNESIUM - 02/08/17 04:41</th> </tr> <tr> <td>MAGNESIUM</td> <td>1.9 mg/dL</td> & lt;td>1.8-2.4</td> </tr> <tr> < th colspan="10">CBC W/DIFF - 02/08/17 04:41</th> </ tr> <tr> <td>BRENDEN CELLS</td> < td>NOTED </td> <td /> </tr> <tr& gt; <td>COMMENT</td> <td>REVIEWED </td> <td /> </tr> <tr> <td>DOHLE BODIES</td> <td>NOTED </td> <td /> </tr> <tr> <td>EOSINOPHIL #</td> <td>0.1 k/cumm</td> <td>0.1-0.5</td> </tr> <tr><td>EOSINOPHIL %</td> <td>1 %</td> <td>2-4</td> </ tr> <tr> <td>GRANULOCYTE #</td> <td >9.3 k/cumm</td> <td>2.0-9.0</td> </tr& gt; <tr> <td>GRANULOCYTE %</td> < td>86 %</td> <td>50-75</td> </tr > <tr> <td>LYMPHOCYTE #</td> < td>0.8 k/cumm</td> <td>1.0-4.0</td> </tr& gt; <tr> <td>LYMPHOCYTE %</td> <td>8 %</td> <td>20-30</td> & lt;/tr> <tr> <td>MEAN CELL HGB</td> <td>30.4 pg</td> <td>27.0-33.0</td> & lt;/tr> <tr> <td>MEAN CELL HGB CONCENTRATION</ td> <td>34.1 g/dL</td> <td>32.0-37.0</ td> </tr> <tr> <td>MEAN CELL VOLUME</td& gt; <td>89.0 fl</td> <td>80.0-100.0</td& gt; </tr> <tr> <td>MONOCYTE #</td> <td>0.5 k/cumm</td> <td>0.1-1.0</td> </tr> <tr> <td>MONOCYTE %</td> <td>5 %</td> <td>4-6</td> & lt;/tr> <tr> <td>MEAN PLATELET VOLUME</td> <td>10.9 fl</td> <td>8.5-10.9</td> </tr> <tr> <td>OVALOCYTES</td> <td>NOTED </td> <td /> </tr> < tr> <td>RED BLOOD CELL</td> <td>3.72 m/ cumm</td> <td>4.00-6.00</td> </tr> <tr > <td>RED CELL DISTRIBUTION WIDTH</td> <td& gt;13.7 %</td> <td>11.0-15.6</td> < /tr> <tr> <td>WHITE BLOOD CELL</td> < td>10.7 k/cumm</td> <td>5.0-10.0</td> </ tr><tr> <td>HEMOGLOBIN</td> <td> 11.3 gm/dL</td> <td>14.0-18.0</td> </tr> & lt;tr> <td>HEMATOCRIT</td> <td>33.1 & #37;</td> <td>40.0-54.0</td></tr> <tr > <td>PLATELET COUNT</td> <td>97 k/cumm& lt;/td> <td>150-400</td> </tr> < tr> <th colspan="10">HEMOGLOBIN - 03/01/17 11:49< /th> </tr> <tr> <td>MEAN CELL VOLUME </td> <td>91.4 fl</td> <td>80.0-100.0& lt;/td> </tr> <tr> <td>HEMOGLOBIN&lt ;/td> <td>13.8 gm/dL</td> <td>14.0-18.0& lt;/td> </tr> <tr> <th colspan="10 ">POTASSIUM - 03/01/17 11:49</th> </tr> <tr > <td>POTASSIUM</td> <td>4.6 mmol/L</ td> <td>3.5-5.3</td> </tr> <tr&gt ; <th colspan="10">HEMOGLOBIN - 03/01/17 11:49</th> </tr><tr> <td>MEAN CELL VOLUME</td> <td>91.4 fl</td> <td>80.0-100.0</td> </ tr> <tr> <td>HEMOGLOBIN</td> < td>13.8 gm/dL</td> <td>14.0-18.0</td></tr> <tr> <th colspan="10">POTASSIUM - 11:49</th> </tr> <tr> <td> POTASSIUM</td> <td>4.6 mmol/L</td> <td&gt ;3.5-5.3</td> </tr> <tr> <th colspan= "10">L200.0113 - 10 08:34</th> </tr> & lt;tr> <td>Specimen Type, Urine - MK</td> < td>Urine, Clean Catch </td> <td>NRG</td> & lt;/tr> <tr><td>Color, Urine - MK</td> < td>YELLOW </td> <td>YELLOW</td> </tr&gt ; <tr> <td>Clarity,Urine - MK</td> < td>CLEAR </td> <td>NRG</td> </tr> <tr> <td>Specific [place],Urine - MK</td> <td>>=1.030 </td> <td>1.015-1.025</td& gt; </tr> <tr> <td>PH,Urine - MK</td > <td>7.0 </td> <td>5.0-8.0</td> </tr> <tr> <td>Leukocyte Esterase,Urine - MK</td> <td>NEGATIVE </td> <td>NEGATIVE </td> </tr> <tr> <td>Nitrate,Urine - MK </td> <td>NEGATIVE </td> <td>NEGATIVE& lt;/td> </tr> <tr> <td>Protein, Urine - Dipstick - MK</td> <td>NEGATIVE </td> <td>NEGATIVE</td> </tr> <tr> & lt;td>Glucose,Urine - Dipstick - MK</td> <td>NEGATIVE & lt;/td> <td>NEGATIVE</td> </tr> < tr> <td>Ketones,Urine - Dipstick - MK</td> < td>NEGATIVE </td> <td>NEGATIVE</td> </tr > <tr> <td>Urobilinogen,Urine - MK</td> <td>0.2 EU/DL</td> <td>NORMAL</td> </tr& gt; <tr> <td>Bilirubin,Urine- Dipstick -MK</td&gt ; <td>NEGATIVE </td> <td>NEGATIVE</td&gt ; </tr> <tr> <td>Occult Blood,Urine- Dipstick-MK</td> <td>NEGATIVE </td> <td& gt;NEGATIVE</td> </tr> <tr> <td> Urine Microscopic (UA-MK)</td> <td>Microscopic Not Ind. &lt ;/td> <td>NRG</td> </tr> <tr> <th colspan="10">L749.1001 - 04/05/17 08:34</th> </tr> <tr> <td>White Blood Count</td> <td>5.6 K/uL</td> <td>4.8-10.8</td> & lt;/tr> <tr> <td>RBC</td> <td& gt;4.47 10*6/uL</td> <td>4.60-6.20</td> </ tr> <tr> <td>Hemoglobin</td> < td>13.5 g/dL</td> <td>14.0-18.0</td> </ tr> <tr> <td>Hematocrit</td> < td>42.3 %</td> <td>42.0-52.0</td> & lt;/tr> <tr> <td>MCV</td> <td& gt;94.6 fL</td> <td>82.0-99.0</td> </tr&gt ; <tr> <td>MCH</td> <td>30.2 pg </td> <td>27.0-32.0</td> </tr> < tr> <td>MCHC</td> <td>31.9 g/dL</td&gt ; <td>32.0-36.0</td> </tr> <tr> <td>RDW</td> <td>14.1 %</td> <td>11.5-14.5</td> </tr> <tr> <td>MPV</td> <td>10.2 fL</td> & lt;td>8.8-14.8</td> </tr> <tr> < td>Platelet Count</td> <td>206 K/uL</td> <td>150-400</td> </tr> <tr> < td>Immature Granulocytes %</td> <td>0.4 &#37 ;</td> <td>0.0-1.0</td> </tr> &lt ;tr> <td>Neutrophils %</td> <td> 60 %</td> <td>51-75</td> </tr> <tr> <td>Lymphocytes %</td> & lt;td>26 %</td> <td>20-46</td> < /tr> <tr> <td>Monocytes %</td> <td>11 %</td> <td>4-11</td> </tr> <tr> <td>Basophils %</td& gt; <td>1 %</td> <td>0-2</td> </tr> <tr> <td>Eosinophils %& lt;/td> <td>3 %</td> <td>0-4</ td> </tr> <tr> <td>Absolute Neutrophils</td> <td>3.31 10*3/uL</td> <td> 1.90-7.00</td> </tr> <tr> <td> Absolute Lymphocytes</td> <td>1.45 10*3/uL</td> <td>0.80-3.30</td> </tr> <tr> <td>Absolute Monocytes</td> <td>0.61 10*3/uL</ td> <td>0.30-1.00</td> </tr> <tr& gt; <td>Absolute Eosinophils</td> <td>0.14 10*3/uL</td> <td>0.00-0.50</td> </tr> <tr> <td>Absolute Basophils</td> < td>0.03 10*3/uL</td> <td>0.00-0.20</td> &lt ;/tr> <tr> <th colspan="10">L749.2000 - 04/05/17 08:34</th> </tr> <tr> <td >NA - Sodium - AMS</td> <td>137 mEq/L</td> <td>135-144</td> </tr> <tr> & lt;td>Potassium - AMS</td> <td>5.6 mEq/L</td> <td>3.5-5.2</td> </tr> <tr> <td>Chloride- AMS</td> <td>104 mEq/L</td> <td>99-111</td> </tr> <tr> <td>CO2 - Carbon Dioxide-AMS</td> <td>25 mEq/L</ td> <td>23-31</td> </tr> <tr> <td>Anion Gap - AMS</td><td>8 mEq/L</td> <td>3-20</td> </tr> <tr> < td>BUN - Blood Urea Nitrogen -AMS</td> <td>20 mg/dL</ td> <td>8-26</td> </tr> <tr> <td>Creatinine- AMS</td> <td>0.90 mg/dL</td > <td>0.72-1.25</td> </tr> <tr> <td>Glomerular Filtration Rate-AMS</td> <td>&gt ; 60 mL/min</td> <td>>60</td> </tr& gt; <tr> <td>Glucose - AMS</td> < td>88 mg/dL</td> <td>70-99</td> </tr&gt ; <tr> <td>Calcium - AMS</td> <td& gt;9.0 mg/dL</td> <td>8.4-10.2</td> </tr> <tr> <td>Bilirubin,Total - AMS</td> &lt ;td>1.6 mg/dL</td> <td>0.2-1.2</td> </tr > <tr> <td>Alkaline Phosphatase - AMS</td> <td>117 U/L</td> <td>40-150</td> </tr& gt; <tr> <td>AST - AspartateAmino Transfer</td&gt ; <td>25 U/L</td> <td>5-34</td> &lt ;/tr> <tr> <td>ALT - AMS</td> < td>29 U/L</td> <td>0-55</td> </tr> <tr> <td>TP - Total Protein - AMS</td> <td>6.4 g/dL</td> <td>6.0-7.6</td> &lt ;/tr> <tr> <td>Albumin Level - AMS</td> <td>3.9 g/dL</td> <td>3.4-4.8</td> & lt;/tr><tr> <td>Globulin - AMS</td> < td>2.5 g/dL</td> <td>1.8-4.0</td> </tr> <tr> <th colspan="10">L908.3120 - 04/05/17 08 :34</th> </tr> <tr> <td> Triglycerides - AMS</td> <td>109 mg/dL</td> <td>0-149</td> </tr> <tr> <td& gt;Cholesterol - AMS</td> <td>187 mg/dL</td> <td& gt;0-199</td> </tr> <tr> <td>HDL Cholesterol, Direct - AMS</td> <td>50 mg/dL</td> <td>40-84</td> </tr> <tr> & lt;td>Cardiac Risk - Ratio - AMS</td> <td>3.7 </td& gt; <td>0.0-5.7</td> </tr> <tr> <td>Non-HDL Cholesterol</td><td>137 mg/dL</td> <td>0-159</td> </tr> <tr> <td>LLDL-A</td> <td>115 mg/dL</td> <td>0-130</td> </tr> <tr> < td>LVLDL-A</td> <td>22 mg/dL</td> <td& gt;0-28</td> </tr> <tr> <th colspan=& quot;10">L750.9150 - 04/05/17 08:34</th> </tr> &lt ;tr> <td>TSH - Thyroid Stim Horm-AMS</td> < td>5.61 uIU/mL</td> <td>0.35-4.94</td> < /tr> <tr> <th colspan="10">L749.2000 - 04/07/17 13:36</th> </tr> <tr> <td& gt;NA - Sodium - AMS</td> <td>135 mEq/L</td> <td& gt;135-144</td> </tr> <tr> <td> Potassium - AMS</td> <td>4.6 mEq/L</td> < td>3.5-5.2</td> </tr> <tr> <td&gt ;Chloride- AMS</td> <td>101 mEq/L</td> < td>99-111</td> </tr> <tr> <td> CO2 - Carbon Dioxide-AMS</td> <td>24 mEq/L</td> <td>23-31</td> </tr> <tr> & lt;td>Anion Gap - AMS</td> <td>10 mEq/L</td> &lt ;td>3-20</td> </tr> <tr> <td> BUN - Blood Urea Nitrogen -AMS</td> <td>21 mg/dL</td&gt ; <td>8-26</td> </tr> <tr> <td>Creatinine - AMS</td> <td>0.92 mg/dL</td& gt; <td>0.72-1.25</td> </tr> <tr&gt ; <td>Glomerular Filtration Rate-AMS</td> <td>& amp;gt; 60 mL/min</td> <td>>60</td> &lt ;/tr> <tr> <td>Glucose - AMS</td> <td>78 mg/dL</td> <td>70-99</td> </tr > <tr> <td>Calcium - AMS</td> < td>9.3 mg/dL</td> <td>8.4-10.2</td> </tr& gt; <tr> <th colspan="10">L908.3165 - 11/17 13:36</th> </tr> <tr> <td> Free T4 (Free Thyroxine)-AMS</td> <td>1.0 ng/dL</td> <td>0.7-1.5</td> </tr> <tr> <th colspan="10">L750.9150 - 04/07/17 13:36</th> </tr> <tr> <td>TSH - Thyroid Stim Horm- AMS</td> <td>8.60 uIU/mL</td> <td>0.35- 4.94</td> </tr> <tr> <th colspan=" 10">L100.0050 - 01/12/18 10:56</th> </tr> <tr&gt ; <td>WBC - WHITE BLOOD COUNT</td> <td>6.2 T /MM3</td> <td>4.5-11.0</td> </tr> <tr> <td>RED BLOOD COUNT</td> <td> 4.25 M/MM3</td> <td>4.50-5.90</td> </tr&gt ; <tr> <td>HGB - HEMOGLOBIN</td> < td>13.4 GM/DL</td> <td>13.5-17.5</td> </ tr> <tr> <td>HCT - HEMATOCRIT</td> <td>39.6 %</td> <td>41-53</td> </tr> <tr> <td>MEAN CORPUSCULAR VOLUME</ td> <td>93.2 UM3</td> <td>80-100</td& gt; </tr> <tr> <td>MEAN CORPUSCULAR HGB </td> <td>31.5 UUG</td> <td>26-34</ td> </tr> <tr> <td>MEAN CORPUSCULAR HGB CONC(MCHC</td> <td>33.8GM/DL</td> <td >31-37</td> </tr> <tr> <td> RDW STANDARD DEVIATION</td> <td>45.5 FL</td> <td>36.9-50.2</td> </tr> <tr> & lt;td>PLT - PLATELET COUNT</td> <td>149 T/MM3</td&gt ; <td>130-400</td> </tr> <tr> <td>MEAN PLATELET VOLUME</td> <td>9.6 UM3</ td> <td>9.4-12.4</td> </tr> <tr& gt; <td>NEUTROPHILS % (AUTO)</td> <td& gt;56.7 %</td> <td>33-66</td> </tr& gt; <tr> <td>LYMPHOCYTES % (AUTO)</td&gt ; <td>31.6 %</td> <td>23-45</td& gt; </tr> <tr> <td>MONOCYTES % ( AUTO)</td> <td>9.4 %</td> <td> 0-9.0</td> </tr> <tr> <td> EOSINOPHILS % (AUTO)</td> <td>1.8 %</td& gt; <td>0-4</td> </tr> <tr> <td>BASOPHILS % (AUTO)</td> <td>0.3 &amp ;#37;</td> <td>0-2</td> </tr> &lt ;tr> <td>IMMATURE GRANULOCYTE % (AUTO)</td> <td>0.2 %</td> <td>0.0-0.5</td> </tr> <tr> <td>NEUTROPHILS # (AUTO)</td& gt; <td>3.5 T/MM3</td> <td>1.8-7.7</td&gt ; </tr> <tr> <td>LYMPHOCYTES # (AUTO)</ td> <td>2.0 T/MM3</td> <td>1-4.8</td& gt; </tr> <tr> <td>MONOCYTES # (AUTO)& lt;/td> <td>0.6 T/MM3</td> <td>0-0.8</ td> </tr> <tr> <td>EOSINOPHILS # ( AUTO)</td> <td>0.1 T/MM3</td> <td>0- 0.5</td> </tr> <tr> <td> BASOPHILS # (AUTO)</td> <td>0.0 T/MM3</td> & lt;td>0-0.2</td> </tr> <tr> <td& gt;IMMATURE GRANULOCYTE # (AUTO)</td> <td>0.01 T/MM3</td > <td>0.00-0.03</td> </tr> <tr&gt ; <th colspan="10">L200.0020 - 01/12/18 10:56</th&gt ; </tr> <tr> <td>FUNGAL CULTURE.</td& gt; <td>1.1 mg/dL</td> <td>0.8-1.5</td&gt ; </tr> <tr> <td>FUNGAL CULTURE, BLOOD.</ td> <td>19 RATIO</td> <td>6-26</td&gt ; </tr> <tr> <td>NA - Sodium</td&gt ; <td>138 MEQ/L</td> <td>136-146</td> </tr> <tr> <td>Potassium</td> & lt;td>4.8 MEQ/L</td> <td>3.6-5</td> </tr> <tr> <td>Chloride</td> <td>102 MEQ /L</td> <td>98-107</td> </tr> <tr > <td>CO2 - Carbon Dioxide</td> <td>26 MEQ/L</td> <td>22-30</td> </tr> & lt;tr> <td>Anion Gap</td> <td>10 meq/L&lt ;/td> <td>5-15</td> </tr> <tr&gt ; <td>BUN - Blood Urea Nitrogen</td> <td> 21.0 MG/DL</td> <td>9-20</td> </tr> <tr> <td>Glomerular Filtration Rate</td> <td >63 </td> <td>NRG</td> </tr> & lt;tr> <td>Glucose</td> <td>88 MG/DL</td> <td>75-110</td> </tr> <tr> <td>Osmolality,Calculated</td> <td>268 MOSM/KG< /td> <td>261-280</td> </tr> <tr> <td>Calcium</td> <td>9.1 MG/DL</td> <td>8.4-10.2</td> </tr> <tr> <td>Bilirubin,Total</td> <td>1.10 MG/DL</td& gt; <td>0.20-1.30</td> </tr> <tr&gt ; <td>Alkaline Phosphatase</td> <td>108 U/L& lt;/td> <td>38-126</td> </tr> <tr > <td>AST - Aspartate Amino Transfer</td> < td>33 U/L</td> <td>17-59</td> </tr> <tr> <td>TP - Total Protein</td> <td >6.7 g/dL</td> <td>6.3-8.2</td> </tr&gt ; <tr> <td>Albumin Level</td> <td& gt;4.0 g/dL</td> <td>3.5-5.0</td> </tr> <tr> <td>Globulin</td> <td>2.7 G/ DL</td> <td>2.4-3.6</td> </tr> & lt;tr> <td>Albumin/Globulin Ratio</td> <td& gt;1.5 RATIO</td> <td>1.1-2.2</td> </tr&gt ; <tr> <td>LICTERUS</td><td>< 2 & lt;/td> <td>0-7</td> </tr> <tr&gt ; <td>LHEMOLYSIS</td> <td>< 15 </ td> <td>0-25</td> </tr> <tr> <td>LTURBIDITY</td> <td>< 20 </td&gt ; <td>0-20</td> </tr> <tr> < td>LALTV</td> <td>43 U/L</td> <td>1 -50</td> </tr> <tr> <th colspan=& quot;10">L300.3490 - 01/12/18 10:56</th> </tr> <tr> <td>Troponin I</td> <td>&lt ; 0.012 ng/ml</td> <td>0-0.12</td> </tr> <tr> <th colspan="10">L600.0100 - 11:24</th> </tr> <tr> <td> POTASSIUM</td><td>Urine, Void-CC/notCC </td> <td& gt;NRG</td> </tr> <tr> <td>CHLORIDE< /td> <td>YELLOW </td> <td>YELLOW</td& gt; </tr> <tr> <td>ANION GAP</td&gt ; <td>CLEAR </td> <td>NRG</td> </tr> <tr> <td>BLOOD UREA NITROGEN</td> <td>7.5 </td> <td>5.0-8.0</td> </tr > <tr> <td>BUN/CREATININE RATIO</td> <td>NEGATIVE </td> <td>NEGATIVE</td> < /tr> <tr> <td>GLUCOSE</td> <td& gt;NEGATIVE </td> <td>NEGATIVE</td> </tr&gt ; <tr> <td>CALCIUM</td> <td> NEGATIVE </td> <td>NEGATIVE</td> </tr> <tr> <td>BILIRUBIN, CONJUG &amp; UNCONJUG&lt ;/td> <td>NEGATIVE </td> <td>NEGATIVE< /td> </tr> <tr> <td>Specific [place] ,Urine</td> <td><=1.005 </td> <td& gt;1.015-1.025</td> </tr> <tr> <td> Leukocyte Esterase,Urine</td> <td>NEGATIVE </td> &lt ;td>NEGATIVE</td> </tr> <tr> <td& gt;Nitrate,Urine</td> <td>NEGATIVE </td> &lt ;td>NEGATIVE</td> </tr> <tr> <td& gt;Urobilinogen,Urine</td> <td>0.2 EU/DL</td> <td>NORMAL</td> </tr> <tr> &lt ;td>Occult Blood,Urine - Dipstick</td> <td>NEGATIVE < /td> <td>NEGATIVE</td> </tr> <tr& gt; <td>Urine Microscopic (UA)</td> <td> Microscopic Not Ind. </td> <td>NRG</td> </tr > </tbody> </table> </text> <entry> < organizer moodCode="EVN" classCode="BATTERY"> < templateId root="[id number]" /> <id nullFlavor="NA" /> <code codeSystem="local" code= "ABG" displayName="ARTERIAL BLOOD GAS" /> < statusCode code="completed" /> <component> < observation moodCode="EVN" classCode="OBS"> < templateId root="[id number]" /> < id nullFlavor="NA" /> <code codeSystem="local&quot ; code="JAIME" displayName="ABG BASE EXCESS" /> & lt;statusCode code="completed" /> <effectiveTime value= "[id number]" /> <value unit="meq/L" xsi:type ="PQ" value="0.4" /> <referenceRange> & lt;observationRange> <text>-3.0-3.0</text> </observationRange> </referenceRange> </ observation> </component> <component> < observation moodCode="EVN" classCode="OBS"> < templateId root="[id number]" /> < id nullFlavor="NA" /> <code codeSystem="local&quot ; code="HCO3A" displayName="ABG BICARBONATE" /> <statusCode code="completed" /> <effectiveTime value ="[id number]" /> <value unit="meq/L" xsi: type="PQ" value="23.4" /> <referenceRange&gt ; <observationRange> <text>23.0-28.0</ text> </observationRange> </referenceRange> </observation> </component> <component> &lt ;observation moodCode="EVN" classCode="OBS"> &lt ;templateId root="[id number]" /> <id nullFlavor="NA" /> <code codeSystem="local" code="PCO2A" displayName="ABG PCO2" /> < statusCode code="completed"/> <effectiveTime value=& quot;[id number]" /> <value unit="mmHg" xsi:type= "PQ" value="33" /> <interpretationCode codeSystem="local" code="*" /> < referenceRange> <observationRange> <text> 34-45</text> </observationRange> </referenceRange&gt ; </observation> </component> <component> <observation moodCode="EVN" classCode="OBS"> <templateId root="[id number]" /> <id nullFlavor="NA" /> <code codeSystem=" local" code="PHAX" displayName="ABG PH" /> <statusCode code="completed" /> <effectiveTime value ="[id number]" /> <value unit="" xsi:type=& quot;PQ" value="7.47" /> <interpretationCode codeSystem="local" code="*" /> < referenceRange> <observationRange> <text> 7.35-7.45</text> </observationRange> </ referenceRange> </observation> </component> < component> <observation moodCode="EVN" classCode=" OBS"> <templateId root="[id number]..22.4.2& quot; /> <id nullFlavor="NA" /> <code codeSystem="local" code="PO2A" displayName="ABG PO2& quot; /> <statusCode code="completed" /> & lt;effectiveTime value="[id number]" /> <value unit=& quot;mmHg" xsi:type="PQ" value="96" /> < referenceRange> <observationRange> <text> 75-100</text> </observationRange> </referenceRange> </observation> </component> <component> <observation moodCode="EVN" classCode="OBS"> <templateId root="[id number]..22.4.2" /> <id nullFlavor="NA" /> <code codeSystem=" local" code="SATA" displayName="ABG O2 SATURATION" /&gt ; <statusCode code="completed" /> < effectiveTime value="[id number]" /> <value unit=&quot ;%" xsi:type="PQ" value="97" /> &lt ;referenceRange> <observationRange> <text> 93-100</text> </observationRange> </ referenceRange> </observation> </component> </ organizer> </entry> <entry> <organizer moodCode="EVN " classCode="BATTERY"> <templateId root=" [id number]" /> <id nullFlavor="NA&quot ; /> <code codeSystem="local" code="ABG" displayName="ARTERIAL BLOOD GAS" /> <statusCode code=" completed" /> <component> <observation moodCode=& quot;EVN" classCode="OBS"> <templateId root=" 2.16.840.1.484780.10.20.22.4.2" /> <id nullFlavor="NA& quot; /> <code codeSystem="local" code="JAIME" displayName="ABG BASE EXCESS" /> <statusCode code=&quot ;completed" /> <effectiveTime value="842702106889&quot ; /> <value unit="meq/L" xsi:type="PQ" value= "0.4" /> <referenceRange> <observationRange> <text>-3.0-3.0</text> </observationRange > </referenceRange> </observation> </ component> <component> <observation moodCode="EVN& quot; classCode="OBS"> <templateId root=" 2.16.840.1.772695.10.20.22.4.2" /> <id nullFlavor="NA& quot; /> <code codeSystem="local" code="HCO3A&quot ; displayName="ABG BICARBONATE" /> <statusCode code=& quot;completed" /> <effectiveTime value="146041408712& quot; /> <value unit="meq/L" xsi:type="PQ" value="23.4" /> <referenceRange> < observationRange> <text>23.0-28.0</text> </observationRange> </referenceRange> </observation > </component> <component> <observation moodCode="EVN" classCode="OBS"> <templateId root="2.16.840.1.911752.10..22.4.2" /> <id nullFlavor ="NA" /> <code codeSystem="local" code=" PCO2A" displayName="ABG PCO2" /> <statusCode code= "completed" /> <effectiveTime value="188552055553& quot; /> <value unit="mmHg" xsi:type="PQ" value="33" /> <interpretationCode codeSystem=" local" code="*" /> <referenceRange> <observationRange> <text>34-45</text> </observationRange> </referenceRange> </ observation> </component> <component> < observation moodCode="EVN" classCode="OBS"> < templateId root="2.16.840.1.237454.10.20.22.4.2" /> < id nullFlavor="NA" /> <code codeSystem="local&quot ; code="PHAX" displayName="ABG PH" /> < statusCode code="completed" /> <effectiveTime value=& quot;843020538652" /> <value unit="" xsi:type="PQ& quot; value="7.47" /> <interpretationCode codeSystem=& quot;local" code="*" /> <referenceRange> <observationRange> <text>7.35-7.45</text> </observationRange> </referenceRange> </ observation> </component> <component> < observation moodCode="EVN" classCode="OBS"> < templateId root="2.16.840.1.392946.10.20.22.4.2" /> < id nullFlavor="NA" /> <code codeSystem="local&quot ; code="PO2A" displayName="ABG PO2" /> < statusCode code="completed" /> <effectiveTime value=& quot;679265779439" /> <value unit="mmHg" xsi:type= "PQ" value="96" /> <referenceRange> <observationRange> <text>75-100</text> </observationRange> </referenceRange> </ observation> </component> <component> < observation moodCode="EVN" classCode="OBS"> < templateId root="2.16.840.1.793477.10..22.4.2" /> < id nullFlavor="NA" /> <code codeSystem="local&quot ; code="SATA" displayName="ABG O2 SATURATION" /> <statusCode code="completed" /> <effectiveTime value="740820002420" /> <value unit="%& quot; xsi:type="PQ" value="97" /> < referenceRange> <observationRange> <text> 93-100</text> </observationRange> </ referenceRange> </observation> </component> </ organizer> </entry> <entry> <organizer moodCode="EVN " classCode="BATTERY"> <templateId root=" 2.16.840.1.432147.10.20.22.4.1" /> <id nullFlavor="NA&quot ; /> <code codeSystem="local" code="PT" displayName="PROTHROMBIN TIME WITH INR" /> <statusCode code ="completed" /> <component> <observation moodCode="EVN" classCode="OBS"> <templateId root="2.16.840.1.073786.10.20.22.4.2" /> <id nullFlavor ="NA"/> <code codeSystem="local" code=" INRX" displayName="INTERNATIONAL NORMAL RATIO" /> &lt ;statusCode code="completed" /> <effectiveTime value=& quot;726019632788" /> <value unit="" xsi:type=& quot;PQ" value="1.1" /> <referenceRange> <observationRange> <text>0.9-1.1</text> </observationRange> </referenceRange> </ observation> </component> <component> <observation moodCode="EVN" classCode="OBS"> <templateId root="2.16.840.1.407011.10.20.22.4.2" /> <id nullFlavor ="NA" /> <code codeSystem="local" code=" PTPAT" displayName="PROTHROMBIN TIME" /> < statusCode code="completed" /> <effectiveTime value=& quot;947342638339" /> <value unit="sec" xsi:type=& quot;PQ" value="11.4" /> <referenceRange> <observationRange> <text>9.3-12.2</text> </observationRange> </referenceRange> </ observation> </component> </organizer> </entry> & lt;entry> <organizer moodCode="EVN" classCode="BATTERY& quot;> <templateId root="2.16.840.1.033860.10.20.22.4.1" /& gt; <id nullFlavor="NA" /> <code codeSystem=" local" code="PTT" displayName="PARTIAL THROMBOPLASTIN TIME& quot; /> <statusCode code="completed" /> < component> <observation moodCode="EVN" classCode="OBS "> <templateId root="2.16.840.1.441037.10.20.22.4.2& quot; /> <id nullFlavor="NA" /> <code codeSystem="local" code="PTT" displayName="PARTIAL THROMBOPLASTIN TIME" /> <statusCode code="completed& quot; /> <effectiveTime value="811180057836" /> <value unit="sec" xsi:type="PQ" value="30&quot ; /> <referenceRange> <observationRange> <text>24-36</text> </observationRange> </referenceRange> </observation> </component& gt; </organizer> </entry> <entry> <organizer moodCode="EVN" classCode="BATTERY"> <templateId root=& quot;2.16.840.1.486741.10.20.22.4.1" /> <id nullFlavor="NA& quot; /> <code codeSystem="local" code="FIB" displayName="FIBRINOGEN" /> <statusCode code=" completed" /> <component> <observation moodCode=& quot;EVN" classCode="OBS"> <templateId root=" 2.16.840.1.064139.10.20.22.4.2" /> <id nullFlavor="NA& quot; /> <code codeSystem="local" code="FIB" displayName="FIBRINOGEN" /> <statusCode code=" completed" /> <effectiveTime value="199029914771" /> <value unit="mg/dL" xsi:type="PQ" value=& quot;302" /> <referenceRange> < observationRange> <text>200-400</text> & lt;/observationRange> </referenceRange> </observation&gt ; </component> </organizer> </entry> <entry> <organizer moodCode="EVN" classCode="BATTERY"> <templateId root="2.16.840.1.163380.10.20.22.4.1" /> < id nullFlavor="NA" /> <code codeSystem="local" code="CBCD" displayName="CBC W/DIFF" /> <statusCode code="completed" /> <component> <observation moodCode="EVN" classCode="OBS"> <templateId root="2.16.840.1.845187.10.20.22.4.2" /> <id nullFlavor ="NA" /> <code codeSystem="local" code=" BA#" displayName="BASOPHIL #" /> <statusCode code= "completed" /> <effectiveTime value="316796193372& quot; /> <value unit="k/cumm" xsi:type="PQ" value="0.0" /> <referenceRange> < observationRange> <text>0.0-0.2</text> & lt;/observationRange> </referenceRange> </ observation> </component> <component> < observation moodCode="EVN" classCode="OBS"> < templateId root="2.16.840.1.133836.10.20.22.4.2" /> < id nullFlavor="NA" /> <code codeSystem="local&quot ; code="BA%" displayName="BASOPHIL %" /> <statusCode code="completed" /> < effectiveTime value="487970130289" /> <value unit="& amp;#37;" xsi:type="PQ" value="1" /> < referenceRange> <observationRange> <text> 0-1</text> </observationRange> </ referenceRange> </observation> </component> < component> <observation moodCode="EVN" classCode=" OBS"> <templateId root="2.16.840.1.151051.10.20.22.4.2& quot; /> <id nullFlavor="NA" /> <code codeSystem="local" code="EO#" displayName="EOSINOPHIL # " /> <statusCode code="completed" /> & lt;effectiveTime value="309893845611" /> <value unit=& quot;k/cumm" xsi:type="PQ" value="0.1" /> & lt;referenceRange> <observationRange> <text& gt;0.1-0.5</text> </observationRange> </ referenceRange> </observation> </component> < component> <observation moodCode="EVN" classCode=" OBS"> <templateId root="2.16.840.1.858503.10.20.22.4.2& quot; /> <id nullFlavor="NA" /> <code codeSystem="local" code="EO%" displayName=" EOSINOPHIL %" /> <statusCode code="completed& quot; /> <effectiveTime value="294055658123" /> <value unit="%" xsi:type="PQ" value="2 " /> <referenceRange> <observationRange&gt ; <text>2-4</text> </observationRange&gt ; </referenceRange> </observation> </ component> <component> <observation moodCode="EVN& quot; classCode="OBS"> <templateId root=" 2.16.840.1.859637.10.20.22.4.2" /> <id nullFlavor="NA& quot; /> <code codeSystem="local" code="GR#" displayName="GRANULOCYTE #" /> <statusCode code=" completed" /> <effectiveTime value="400258356478" /> <value unit="k/cumm" xsi:type="PQ" value=" 3.3" /> <referenceRange> <observationRange& gt; <text>2.0-9.0</text> </ observationRange> </referenceRange> </observation&gt ; </component> <component> <observation moodCode ="EVN" classCode="OBS"> <templateId root=& quot;2.16.840.1.264949.10.20.22.4.2" /> <id nullFlavor=&quot ;NA" /> <code codeSystem="local" code="GR&amp ;#37;" displayName="GRANULOCYTE %" /> < statusCode code="completed" /> <effectiveTime value=" 160168181529" /> <value unit="%" xsi:type= "PQ" value="66" /> <referenceRange> <observationRange> <text>50-75</text> </observationRange> </referenceRange> </ observation> </component> <component> < observation moodCode="EVN" classCode="OBS"> < templateId root="2.16.840.1.421351.10.20.22.4.2" /> < id nullFlavor="NA" /> <code codeSystem="local&quot ; code="LY#" displayName="LYMPHOCYTE #" /> < statusCode code="completed" /> <effectiveTime value=& quot;134025975760" /> <value unit="k/cumm" xsi: type="PQ" value="1.1" /> <referenceRange> <observationRange> <text>1.0-4.0</text&gt ; </observationRange> </referenceRange> & lt;/observation> </component> <component> < observation moodCode="EVN" classCode="OBS"> < templateId root="2.16.840.1.467804.10.20.22.4.2" /> < id nullFlavor="NA" /> <code codeSystem="local&quot ; code="LY%" displayName="LYMPHOCYTE %" /&gt ; <statusCode code="completed" /> < effectiveTime value="737441633560" /> <value unit=&quot ;%" xsi:type="PQ" value="22" /> &lt ;referenceRange> <observationRange> <text> 20-30</text> </observationRange> </ referenceRange> </observation> </component> < component> <observation moodCode="EVN" classCode=" OBS"> <templateId root="2.16.840.1.686403.10.20.22.4.2& quot; /> <id nullFlavor="NA" /> <code codeSystem="local" code="MCH" displayName="MEAN CELL HGB" /> <statusCode code="completed" /> <effectiveTime value="750779364611" /> <value unit=& quot;pg" xsi:type="PQ" value="34.0" /> < interpretationCode codeSystem="local" code="*" /> < referenceRange> <observationRange> <text> 27.0-33.0</text> </observationRange> </ referenceRange> </observation> </component> < component> <observation moodCode="EVN" classCode=" OBS"> <templateId root="2.16.840.1.720743.10.20.22.4.2& quot; /> <id nullFlavor="NA" /> <code codeSystem="local" code="MCHC" displayName="MEAN CELL HGB CONCENTRATION" /> <statusCode code="completed&quot ; /> <effectiveTime value="726070626000" /> <value unit="g/dl" xsi:type="PQ" value="34.9&quot ; /> <referenceRange> <observationRange> <text>32.0-36.0</text> </observationRange> </referenceRange> </observation> </component&gt ; <component> <observation moodCode="EVN" classCode="OBS"> <templateId root=" 2.16.840.1.831852.10.20.22.4.2" /> <id nullFlavor="NA& quot; /> <code codeSystem="local" code="MCV" displayName="MEAN CELL VOLUME" /> <statusCode code=& quot;completed" /> <effectiveTime value="750618927043& quot; /> <value unit="fl" xsi:type="PQ" value ="97.4" /> <referenceRange> < observationRange> <text>80.0-100.0</text> </ observationRange> </referenceRange> </observation&gt ; </component> <component> <observation moodCode ="EVN" classCode="OBS"> <templateId root=& quot;2.16.840.1.936004.10.20.22.4.2" /> <id nullFlavor="NA&quot ; /> <code codeSystem="local" code="MO#" displayName="MONOCYTE #" /> <statusCode code=" completed" /> <effectiveTime value="608225796802" /> <value unit="k/cumm" xsi:type="PQ" value=& quot;0.5" /> <referenceRange> <observationRange&gt ; <text>0.1-1.0</text> </observationRange > </referenceRange> </observation> </ component> <component> <observation moodCode="EVN" classCode="OBS"> <templateId root=" 2.16.840.1.645047.10.20.22.4.2" /> <id nullFlavor="NA& quot; /> <code codeSystem="local" code="MO&#37 ;" displayName="MONOCYTE %" /> < statusCode code="completed" /> <effectiveTime value=& quot;978233248771" /> <value unit="%" xsi: type="PQ" value="10" /> <interpretationCode codeSystem="local" code="*" /> < referenceRange> <observationRange> <text> 4-6</text> </observationRange></referenceRange> </observation> </component> <component> &lt ;observation moodCode="EVN" classCode="OBS"> &lt ;templateId root="2.16.840.1.912841.10.20.22.4.2" /> < id nullFlavor="NA" /> <code codeSystem="local&quot ; code="RBC" displayName="RED BLOOD CELL" /> &lt ;statusCode code="completed" /> <effectiveTime value=& quot;773507992094" /> <value unit="m/cumm" xsi: type="PQ" value="4.02" /> <referenceRange&gt ; <observationRange> <text>4.00-6.00</text> </observationRange> </referenceRange> &lt ;/observation> </component> <component> < observation moodCode="EVN" classCode="OBS"> < templateId root="2.16.840.1.790533.10.20.22.4.2" /> < id nullFlavor="NA" /> <code codeSystem="local&quot ; code="RDW" displayName="RED CELL DISTRIBUTION WIDTH" /&gt ; <statusCode code="completed" /> < effectiveTime value="219966285461" /> <value unit=&quot ;%" xsi:type="PQ" value="13.1" /> & lt;referenceRange> <observationRange> <text> 11.0-15.6</text> </observationRange> </ referenceRange> </observation> </component> < component> <observation moodCode="EVN" classCode=" OBS"> <templateId root="2.16.840.1.069390.10.20.22.4.2& quot; /> <id nullFlavor="NA" /> <code codeSystem="local" code="WBC" displayName="WHITE BLOOD CELL" /> <statusCode code="completed" /> <effectiveTime value="259719789859" /> <value unit="k/cumm" xsi:type="PQ" value="5.1" /> <referenceRange> <observationRange> & lt;text>5.0-10.0</text> </observationRange> & lt;/referenceRange> </observation> </component> <component> <observation moodCode="EVN" classCode=& quot;OBS"> <templateId root=" 2.16.840.1.643594.10.20.22.4.2" /> <id nullFlavor="NA& quot; /> <code codeSystem="local" code="HGBT&quot ; displayName="HEMOGLOBIN" /> <statusCode code=" completed" /> <effectiveTime value="058983219276"/ > <value unit="gm/dL" xsi:type="PQ" value=& quot;13.7" /> <interpretationCode codeSystem="local&quot ; code="*" /> <referenceRange> < observationRange> <text>14.0-18.0</text> & lt;/observationRange> </referenceRange> </ observation> </component> <component> < observation moodCode="EVN" classCode="OBS"> < templateId root="2.16.840.1.937964.10.20.22.4.2" /> <id nullFlavor="NA" /> <code codeSystem="local" code="HCTT" displayName="HEMATOCRIT" /> < statusCode code="completed" /> <effectiveTime value=& quot;388518363732" /> <value unit="%" xsi: type="PQ" value="39.2" /> < interpretationCode codeSystem="local" code="*" /> <referenceRange><observationRange> <text>40.0- 54.0</text> </observationRange> </ referenceRange> </observation> </component> < component> <observation moodCode="EVN" classCode=" OBS"> <templateId root="2.16.840.1.183860.10.20.22.4.2" /& gt; <id nullFlavor="NA" /> <code codeSystem ="local" code="PLT" displayName="PLATELET COUNT" / > <statusCode code="completed" /> < effectiveTime value="904572931185" /> <value unit=&quot ;k/cumm" xsi:type="PQ" value="194" /> < referenceRange> <observationRange> <text> 150-450</text> </observationRange> </referenceRange& gt; </observation> </component> </organizer>&lt ;/entry> <entry> <organizer moodCode="EVN" classCode=& quot;BATTERY"> <templateId root=" 2.16.840.1.493007.10.20.22.4.1" /> <id nullFlavor="NA&quot ; /> <code codeSystem="local" code="METAB" displayName="METABOLIC PANEL, BASIC" /> <statusCode code=& quot;completed" /> <component> <observation moodCode="EVN" classCode="OBS"> <templateId root=&quot ;2.16.840.1.290933.10.20.22.4.2" /> <id nullFlavor="NA& quot; /> <code codeSystem="local" code="K" displayName="POTASSIUM" /> <statusCode code=" completed" /> <effectiveTime value="777705701613" /> <value unit="mmol/L" xsi:type="PQ" value=& quot;4.1" /> <referenceRange> < observationRange> <text>3.5-5.3</text> & lt;/observationRange> </referenceRange> </ observation> </component> <component> < observation moodCode="EVN" classCode="OBS"> < templateId root="2.16.840.1.566127.10.20.22.4.2" /> < id nullFlavor="NA" /> <code codeSystem="local" code= "eGFR" displayName="EST GFR (MDRD)" /> < statusCode code="completed" /> <effectiveTime value=& quot;397297915227" /> <value unit="mL/min" xsi: type="PQ" value="> 60" /> < referenceRange> <observationRange> <text>& gt; 59</text> </observationRange> </ referenceRange> </observation> </component> < component> <observation moodCode="EVN" classCode=" OBS"> <templateId root="2.16.840.1.968084.10.20.22.4.2& quot; /> <id nullFlavor="NA" /><code codeSystem=& quot;local" code="GAP" displayName="ANION GAP" /> <statusCode code="completed" /> <effectiveTime value="545871198893" /> <value unit="mmol/L" xsi:type="PQ" value="6" /> <referenceRange&gt ; <observationRange> <text>5-15</text&gt ; </observationRange> </referenceRange> & lt;/observation> </component> <component> < observation moodCode="EVN" classCode="OBS"> < templateId root="2.16.840.1.549730.10.20.22.4.2" /> < id nullFlavor="NA" /> <code codeSystem="local&quot ; code="GLU" displayName="GLUCOSE" /> < statusCode code="completed" /> <effectiveTime value=& quot;746276814720" /> <value unit="mg/dL" xsi:type ="PQ" value="95" /> <referenceRange> <observationRange> <text>70-99</text> & lt;/observationRange> </referenceRange> </ observation> </component> <component> < observation moodCode="EVN" classCode="OBS"> < templateId root="2.16.840.1.223987.10..22.4.2" /><id nullFlavor="NA" /> <code codeSystem="local" code="CA" displayName="CALCIUM" /> < statusCode code="completed" /> <effectiveTime value=&quot ;267042358097" /> <value unit="mg/dL" xsi:type=& quot;PQ" value="8.7" /> <referenceRange> <observationRange> <text>8.5-10.1</text> </observationRange> </referenceRange> < /observation> </component> <component> < observation moodCode="EVN" classCode="OBS"> < templateId root="2.16.840.1.192585.10..22.4.2" /> < id nullFlavor="NA" /> <code codeSystem="local&quot ; code="BUN" displayName="BLOOD UREA NITROGEN" /> <statusCode code="completed" /> <effectiveTime value="863267290782" /> <value unit="mg/dL" xsi:type="PQ" value="17" /> <referenceRange& gt; <observationRange> <text>7-20</text& gt; </observationRange> </referenceRange> </observation> </component> <component> < observation moodCode="EVN" classCode="OBS"> < templateId root="2.16.840.1.620193.10.20.22.4.2" /> < id nullFlavor="NA" /> <code codeSystem="local" code="CREAT" displayName="CREATININE" /> < statusCode code="completed" /> <effectiveTime value=& quot;513877877900" /> <value unit="mg/dL" xsi:type ="PQ" value="0.8" /> <referenceRange> <observationRange> <text>0.8-1.3</text> & lt;/observationRange> </referenceRange> </ observation> </component> <component> < observation moodCode="EVN" classCode="OBS"> < templateId root="2.16.840.1.384492.10.20.22.4.2" /> < id nullFlavor="NA" /> <code codeSystem="local&quot ; code="NA" displayName="SODIUM" /> < statusCode code="completed" /> <effectiveTime value=& quot;155197432459" /> <value unit="mmol/L" xsi: type="PQ" value="131" /> <interpretationCode codeSystem="local" code="*" /> < referenceRange> <observationRange> <text> 135-148</text> </observationRange> </referenceRange > </observation> </component> <component> <observation moodCode="EVN" classCode="OBS"> <templateId root="2.16.840.1.004105.10.20.22.4.2" /> & lt;id nullFlavor="NA" /> <code codeSystem="local& quot; code="CL" displayName="CHLORIDE" /> < statusCode code="completed" /> <effectiveTime value=& quot;984103071968" /> <value unit="mmol/L" xsi: type="PQ" value="97" /> <interpretationCode codeSystem="local" code="*" /> < referenceRange> <observationRange> <text> 98-110</text> </observationRange> </referenceRange&gt ; </observation> </component> <component> <observation moodCode="EVN" classCode="OBS"> <templateIdroot="2.16.840.1.266956.10.20.22.4.2" /> <id nullFlavor="NA" /> <code codeSystem=" local" code="CO2" displayName="CARBON DIOXIDE" /> <statusCode code="completed" /> < effectiveTime value="790852261848" /> <value unit=&quot ;mmol/L" xsi:type="PQ" value="28" /> < referenceRange> <observationRange> <text>21-32&lt ;/text> </observationRange> </referenceRange&gt ; </observation> </component> </organizer> &lt ;/entry> <entry> <organizer moodCode="EVN" classCode=& quot;BATTERY"> <templateId root=" 2.16.840.1.575833.10.20.22.4.1" /> <id nullFlavor="NA&quot ; /> <code codeSystem="local" code="HDLPRO" displayName="LIPID PANEL" /> <statusCode code=" completed" /> <component> <observation moodCode=& quot;EVN" classCode="OBS"> <templateId root=" 2.16.840.1.804278.10.20.22.4.2" /> <id nullFlavor="NA& quot; /> <code codeSystem="local" code="CHOL/HDL& quot; displayName="CHOLESTEROL/HDL RATIO" /> < statusCode code="completed" /> <effectiveTime value=& quot;871608250570" /> <value unit="" xsi:type=& quot;PQ" value="2.0" /> <referenceRange> <observationRange> <text> < 5.0</text& gt; </observationRange> </referenceRange> </observation> </component> <component> &lt ;observation moodCode="EVN" classCode="OBS"> &lt ;templateId root="2.16.840.1.100816.10.20.22.4.2" /> < id nullFlavor="NA" /> <code codeSystem="local&quot ; code="LDLX" displayName="LDL CHOLESTEROL" /> < statusCode code="completed" /> <effectiveTime value=& quot;667572836257" /> <value unit="mg/dL" xsi:type ="PQ" value="59" /> <referenceRange> <observationRange> <text>< 100</text& gt; </observationRange> </referenceRange> < /observation> </component> <component> < observation moodCode="EVN" classCode="OBS"> < templateId root="2.16.840.1.311018.10.20.22.4.2" /> < id nullFlavor="NA" /> <code codeSystem="local&quot ; code="VLDL" displayName="VLDL CHOLESTEROL" /> <statusCode code="completed" /> <effectiveTime value ="403537255674" /> <value unit="mg/dL" xsi: type="PQ" value="9" /> <referenceRange> <observationRange> <text>< 30</text&gt ; </observationRange> </referenceRange> & lt;/observation> </component> <component> < observation moodCode="EVN" classCode="OBS"> < templateId root="2.16.840.1.637958.10..22.4.2" /> < id nullFlavor="NA" /> <code codeSystem="local&quot ; code="TRIG" displayName="TRIGLYCERIDES" /> &lt ;statusCode code="completed" /> <effectiveTime value=& quot;506455147015" /> <value unit="mg/dL" xsi:type="PQ " value="44" /> <referenceRange> &lt ;observationRange> <text>< 150</text> </observationRange> </referenceRange> </ observation> </component> <component> < observation moodCode="EVN" classCode="OBS"> < templateId root="2.16.840.1.993624.10.20.22.4.2" /> <id nullFlavor="NA" /> <code codeSystem="local" code="CHOL" displayName="CHOLESTEROL" /> < statusCode code="completed" /> <effectiveTime value=& quot;014101582666" /> <value unit="mg/dL" xsi:type ="PQ" value="139" /> <referenceRange> <observationRange> <text>< 200</text& gt; </observationRange> </referenceRange> </observation> </component> <component> &lt ;observation moodCode="EVN" classCode="OBS"> &lt ;templateId root="2.16.840.1.431150.10.20.22.4.2" /> < id nullFlavor="NA" /> <code codeSystem="local&quot ; code="HDL" displayName="HDL CHOLESTEROL" /> & lt;statusCode code="completed" /> <effectiveTime value= "333959939705" /> <value unit="mg/dL" xsi: type="PQ" value="71" /> <referenceRange> & lt;observationRange> <text>> 39</text> </observationRange> </referenceRange> </ observation> </component> </organizer> </entry> & lt;entry> <organizer moodCode="EVN" classCode="BATTERY& quot;> <templateId root="2.16.840.1.154915.10.20.22.4.1" /& gt; <id nullFlavor="NA" /> <code codeSystem="local " code="HBA1C" displayName="HEMOGLOBIN A1C" /> <statusCode code="completed" /> <component> & lt;observation moodCode="EVN" classCode="OBS"> & lt;templateId root="[id number]" /> &lt ;id nullFlavor="NA" /> <code codeSystem="local& quot; code="HBA1C" displayName="HEMOGLOBIN A1C" /> <statusCode code="completed" /> <effectiveTime value="[id number]" /> <value unit="%& quot; xsi:type="PQ" value="5.9" /> < interpretationCode codeSystem="local" code="*" /> <referenceRange> <observationRange> < text>< 5.7</text> </observationRange> &lt ;/referenceRange> </observation> </component> < /organizer> </entry> <entry> <organizer moodCode=" EVN" classCode="BATTERY"> <templateId root=" [id number]" /> <id nullFlavor="NA&quot ; /> <code codeSystem="local" code="MRSAS" displayName="MRSA SURVEILLANCE SCREEN" /> <statusCode code= "completed" /> <component> <observation moodCode ="EVN" classCode="OBS"> <templateId root=" 2.16.840.1.141931.10.20.22.4.2" /> <id nullFlavor="NA& quot; /> <code codeSystem="local" code="UNC" displayName="Uncategorized" /> <statusCode code=" completed" /><effectiveTime value="406452145741" /> <value xsi:type="ST" value="<pre><b>MRSA SURVEILLANCE SCREEN</b> See BelowMRSA SURVEILLANCE SCREEN(F) Zac Date/ Time: 05/01/2012 09:43 Rosibel Date/Time: 05/02/2012 09:02SOURCE: ANTERIOR NARESSPEC DESC: N[facility]ETHICILLIN [facility] [phone] [place] [place] [address]</pre>& quot; /> <referenceRange> <observationRange> <text /> </observationRange> </referenceRange > </observation> </component> </organizer> & lt;/entry> <entry> <organizer moodCode="EVN" classCode ="BATTERY"> <templateId root=" 2.16.840.1.564169.10.20.22.4.1" /> <id nullFlavor="NA&quot ; /> <code codeSystem="local" code="PT" displayName="PROTHROMBIN TIME WITH INR" /> <statusCode code ="completed" /> <component> <observation moodCode="EVN" classCode="OBS"> <templateId root=& quot;2.16.840.1.663958.10.20.22.4.2" /> <id nullFlavor=&quot ;NA" /> <code codeSystem="local" code="INRX& quot; displayName="INTERNATIONAL NORMAL RATIO" /> < statusCode code="completed" /> <effectiveTime value=&quot ;760082496024" /> <value unit="" xsi:type="PQ " value="1.1" /> <referenceRange> & lt;observationRange> <text>0.9-1.1</text> </observationRange> </referenceRange> </ observation> </component> <component> < observation moodCode="EVN" classCode="OBS"> < templateId root="2.16.840.1.361896.10.20.22.4.2" /> < id nullFlavor="NA" /> <code codeSystem="local&quot ; code="PTPAT" displayName="PROTHROMBIN TIME" /> <statusCode code="completed" /> <effectiveTime value="854508417337" /> <value unit="sec" xsi :type="PQ" value="11.4" /> <referenceRange&gt ; <observationRange> <text>9.3-12.2</text > </observationRange> </referenceRange> </observation> </component> </organizer> </ entry> <entry> <organizer moodCode="EVN" classCode=& quot;BATTERY"> <templateId root=" 2.16.840.1.716869.10.20.22.4.1" /> <id nullFlavor="NA&quot ; /> <code codeSystem="local" code="PTT" displayName="PARTIAL THROMBOPLASTIN TIME" /> <statusCode code="completed" /> <component> <observation moodCode="EVN" classCode="OBS"> <templateId root="2.16.840.1.589394.10.20.22.4.2" /> <id nullFlavor ="NA" /> <code codeSystem="local" code=" PTT" displayName="PARTIAL THROMBOPLASTIN TIME" /> &lt ;statusCode code="completed" /> <effectiveTime value=" 837828526761" /> <value unit="sec" xsi:type=" PQ" value="30" /> <referenceRange> & lt;observationRange> <text>24-36</text> & lt;/observationRange> </referenceRange> </observation&gt ; </component> </organizer> </entry> <entry> <organizer moodCode="EVN" classCode="BATTERY"> <templateId root="2.16.840.1.213433.10.20.22.4.1" /> < id nullFlavor="NA" /> <code codeSystem="local" code="FIB" displayName="FIBRINOGEN" /> < statusCode code="completed" /> <component> < observation moodCode="EVN" classCode="OBS"> < templateId root="2.16.840.1.291206.10.20.22.4.2" /> < id nullFlavor="NA"/> <code codeSystem="local&quot ; code="FIB" displayName="FIBRINOGEN" /> < statusCode code="completed" /> <effectiveTime value=& quot;411677987255" /> <value unit="mg/dL" xsi:type ="PQ" value="302" /> <referenceRange> <observationRange> <text>200-400</text> </observationRange> </referenceRange> </ observation> </component> </organizer> </entry> & lt;entry> <organizer moodCode="EVN" classCode="BATTERY& quot;> <templateId root="2.16.840.1.206029.10.20.22.4.1" /& gt; <id nullFlavor="NA" /> <code codeSystem=" local" code="CBCD" displayName="CBC W/DIFF" /> <statusCode code="completed" /> <component> & lt;observation moodCode="EVN" classCode="OBS"> & lt;templateId root="2.16.840.1.587018.10.20.22.4.2" /> &lt ;id nullFlavor="NA" /> <code codeSystem="local& quot; code="BA#" displayName="BASOPHIL #" /> < statusCode code="completed" /> <effectiveTime value=& quot;523157463997" /> <value unit="k/cumm" xsi: type="PQ" value="0.0" /> <referenceRange> <observationRange> <text>0.0-0.2</text& gt; </observationRange> </referenceRange> </observation> </component> <component> &lt ;observation moodCode="EVN" classCode="OBS"> &lt ;templateId root="2.16.840.1.027126.10.20.22.4.2" /> < id nullFlavor="NA" /> <code codeSystem="local&quot ; code="BA%" displayName="BASOPHIL %" />& lt;statusCode code="completed" /> <effectiveTime value= "186464440275" /> <value unit="%" xsi :type="PQ" value="1"/> <referenceRange> <observationRange> <text>0-1</text> </observationRange> </referenceRange> </ observation> </component> <component> < observation moodCode="EVN" classCode="OBS"> < templateId root="2.16.840.1.240802.10.20.22.4.2" /> < id nullFlavor="NA" /> <code codeSystem="local&quot ; code="EO#" displayName="EOSINOPHIL #" /> < statusCode code="completed" /> <effectiveTime value=& quot;716166967274" /> <value unit="k/cumm" xsi: type="PQ" value="0.1" /> <referenceRange> <observationRange> <text>0.1-0.5</text& gt; </observationRange> </referenceRange> &lt ;/observation> </component> <component> < observation moodCode="EVN" classCode="OBS"> < templateId root="2.16.840.1.596236.10.20.22.4.2" /> <id nullFlavor="NA" /> <code codeSystem="local" code="EO%" displayName="EOSINOPHIL %" /> <statusCode code="completed" /> < effectiveTime value="621701205387" /> <value unit=&quot ;%" xsi:type="PQ" value="2" /> < referenceRange> <observationRange> <text> 2-4</text> </observationRange> </referenceRange> </observation> </component> <component> <observation moodCode="EVN" classCode="OBS"> <templateId root="2.16.840.1.032213.10.20.22.4.2" /> <id nullFlavor="NA" /> <code codeSystem=" local" code="GR#" displayName="GRANULOCYTE #" /> <statusCode code="completed" /> < effectiveTime value="939111049944" /> <value unit=&quot ;k/cumm" xsi:type="PQ" value="3.3" /> < referenceRange> <observationRange> <text>2.0-9.0 </text> </observationRange> </referenceRange& gt; </observation> </component> <component> <observation moodCode="EVN" classCode="OBS"> &lt ;templateId root="2.16.840.1.641516.10.20.22.4.2" /> < id nullFlavor="NA" /> <code codeSystem="local&quot ; code="GR%" displayName="GRANULOCYTE %" /& gt; <statusCode code="completed" /> < effectiveTime value="456834236824" /> <value unit=&quot ;%" xsi:type="PQ" value="66" /> &lt ;referenceRange> <observationRange> <text>50-75 </text> </observationRange> </referenceRange& gt; </observation> </component><component> <observation moodCode="EVN" classCode="OBS"> < templateId root="2.16.840.1.158008.10.20.22.4.2" /> < id nullFlavor="NA" /> <code codeSystem="local&quot ; code="LY#" displayName="LYMPHOCYTE #" /> < statusCode code="completed" /> <effectiveTime value=& quot;788802930977" /> <value unit="k/cumm" xsi: type="PQ" value="1.1" /> <referenceRange> <observationRange> <text>1.0-4.0</text& gt; </observationRange> </referenceRange> </ observation> </component> <component> < observation moodCode="EVN" classCode="OBS"> < templateId root="2.16.840.1.098009.10.20.22.4.2" /> < id nullFlavor="NA" /> <code codeSystem="local&quot ; code="LY%" displayName="LYMPHOCYTE %" /&gt ; <statusCode code="completed" /> < effectiveTime value="994025152216" /> <value unit=&quot ;%" xsi:type="PQ" value="22" /> &lt ;referenceRange> <observationRange> <text&gt ;20-30</text> </observationRange></referenceRange> </observation> </component> <component> <observation moodCode="EVN" classCode="OBS"> <templateId root="2.16.840.1.067034.10.20.22.4.2" /> & lt;id nullFlavor="NA" /> <code codeSystem="local& quot; code="MCH" displayName="MEAN CELL HGB" /> <statusCode code="completed" /> <effectiveTime value ="707410840446" /> <value unit="pg" xsi:type= "PQ" value="34.0" /> <interpretationCode codeSystem="local" code="*" /> < referenceRange> <observationRange> <text> 27.0-33.0</text> </observationRange> </ referenceRange> </observation> </component> < component> <observation moodCode="EVN" classCode=" OBS"> <templateId root="2.16.840.1.985063.10.20.22.4.2& quot; /> <id nullFlavor="NA" /> <code codeSystem="local" code="MCHC" displayName="MEAN CELL HGB CONCENTRATION" /> <statusCode code="completed" /> <effectiveTime value="901223368254" /> < value unit="g/dl" xsi:type="PQ" value="34.9"/> <referenceRange> <observationRange> <text>32.0-36.0</text> </observationRange> </referenceRange> </observation> </component&gt ; <component> <observation moodCode="EVN" classCode="OBS"> <templateId root=" 2.16.840.1.440471.10.20.22.4.2" /> <id nullFlavor="NA& quot; /> <code codeSystem="local" code="MCV" displayName="MEAN CELL VOLUME" /> <statusCode code=& quot;completed" /> <effectiveTime value="092180295382& quot; /> <value unit="fl" xsi:type="PQ" value= "97.4" /><referenceRange> <observationRange&gt ; <text>80.0-100.0</text> </ observationRange> </referenceRange> </observation&gt ; </component> <component> <observation moodCode ="EVN" classCode="OBS"> <templateId root=& quot;2.16.840.1.115996.10.20.22.4.2" /> <id nullFlavor=&quot ;NA" /> <code codeSystem="local" code="MO#& quot; displayName="MONOCYTE #" /> <statusCode code=& quot;completed" /> <effectiveTime value="970183251864& quot; /> <value unit="k/cumm" xsi:type="PQ" value="0.5" /> <referenceRange> < observationRange> <text>0.1-1.0</text> & lt;/observationRange> </referenceRange> </ observation> </component> <component> < observation moodCode="EVN" classCode="OBS"> < templateId root="216.840.1.296679.10.20.22.4.2" /> < id nullFlavor="NA" /> <code codeSystem="local&quot ; code="MO%" displayName="MONOCYTE %" /> <statusCode code="completed" /> < effectiveTime value="849609682613" /> <value unit=&quot ;%" xsi:type="PQ" value="10" /> &lt ;interpretationCode codeSystem="local" code="*" /> <referenceRange><observationRange> <text>4-6& lt;/text> </observationRange> </referenceRange& gt; </observation> </component> <component> <observation moodCode="EVN" classCode="OBS"> <templateId root="2.16.840.1.946415.10.20.22.4.2" /> <id nullFlavor="NA" /> <code codeSystem=&quot ;local" code="RBC" displayName="RED BLOOD CELL" /> <statusCode code="completed" /> < effectiveTime value="651299391019" /> <value unit=&quot ;m/cumm" xsi:type="PQ" value="4.02" /> < referenceRange> <observationRange> <text> 4.00-6.00</text> </observationRange> </ referenceRange> </observation> </component> < component> <observation moodCode="EVN" classCode="OBS& quot;> <templateId root="2.16.840.1.891417.10.20.22.4.2&quot ; /> <id nullFlavor="NA" /> <code codeSystem="local" code="RDW" displayName="RED CELL DISTRIBUTION WIDTH" /> <statusCode code="completed&quot ; /> <effectiveTime value="735363658491" /> <value unit="%" xsi:type="PQ" value="13.1& quot; /> <referenceRange> <observationRange> <text>11.0-15.6</text> </ observationRange> </referenceRange> </observation> & lt;/component> <component> <observation moodCode=" EVN" classCode="OBS"> <templateId root=" 2.16.840.1.957863.10.20.22.4.2" /> <id nullFlavor="NA& quot; /> <code codeSystem="local" code="WBC" displayName="WHITE BLOOD CELL" /> <statusCode code=& quot;completed" /> <effectiveTime value="423605270404& quot; /> <value unit="k/cumm" xsi:type="PQ" value="5.1" /> <referenceRange> < observationRange> <text>5.0-10.0</text> </ observationRange> </referenceRange> </observation&gt ; </component> <component> <observation moodCode ="EVN" classCode="OBS"> <templateId root=& quot;2.16.840.1.130503.10.20.22.4.2" /> <id nullFlavor=&quot ;NA" /> <code codeSystem="local" code="HGBT& quot; displayName="HEMOGLOBIN" /> <statusCode code=" completed" /> <effectiveTime value="611169099628" /> <value unit="gm/dL" xsi:type="PQ" value=& quot;13.7" /> <interpretationCode codeSystem="local& quot; code="*" /> <referenceRange> < observationRange> <text>14.0-18.0</text> </observationRange> </referenceRange> </ observation> </component> <component> < observation moodCode="EVN" classCode="OBS"> < templateId root="2.16.840.1.762613.10.20.22.4.2" /> < id nullFlavor="NA" /> <code codeSystem="local&quot ; code="HCTT" displayName="HEMATOCRIT" /> < statusCode code="completed" /> <effectiveTime value=& quot;960362538437" /> <value unit="%" xsi: type="PQ" value="39.2" /> < interpretationCode codeSystem="local" code="*" /> <referenceRange> <observationRange> < text>40.0-54.0</text> </observationRange> &lt ;/referenceRange> </observation> </component> & lt;component> <observation moodCode="EVN" classCode=&quot ;OBS"> <templateId root="2.16.840.1.117162.10.20.22.4.2 " /> <id nullFlavor="NA" /> <code codeSystem="local" code="PLT" displayName="PLATELET COUNT" /> <statusCode code="completed" /> <effectiveTime value="201303008721" /> <value unit ="k/cumm" xsi:type="PQ" value="194" /> <referenceRange> <observationRange> < text>150-450</text> </observationRange> </ referenceRange> </observation> </component> </ organizer> </entry> <entry> <organizer moodCode="EVN " classCode="BATTERY"> <templateId root=" 2.16.840.1.516714.10.20.22.4.1" /> <id nullFlavor="NA&quot ; /> <code codeSystem="local" code="METAB" displayName="METABOLIC PANEL, BASIC" /> <statusCode code=& quot;completed" /> <component> <observation moodCode="EVN" classCode="OBS"> <templateId root="2.16.840.1.074171.10.20.22.4.2" /> <id nullFlavor ="NA" /> <code codeSystem="local" code=" K" displayName="POTASSIUM" /> <statusCode code=& quot;completed" /> <effectiveTime value="768642288847& quot; /> <value unit="mmol/L" xsi:type="PQ" value="4.1" /> <referenceRange> < observationRange> <text>3.5-5.3</text> & lt;/observationRange> </referenceRange> </observation&gt ; </component> <component> <observation moodCode ="EVN" classCode="OBS"> <templateId root=& quot;2.16.840.1.563822.10.20.22.4.2" /> <id nullFlavor=&quot ;NA"/> <code codeSystem="local" code="eGFR& quot; displayName="EST GFR(MDRD)" /> <statusCode code=& quot;completed" /> <effectiveTime value="659027467485& quot; /> <value unit="mL/min" xsi:type="PQ" value="> 60" /> <referenceRange> & lt;observationRange> <text>> 59</text> </observationRange> </referenceRange> </ observation> </component> <component> < observation moodCode="EVN" classCode="OBS"> < templateId root="2.16.840.1.287359.10.20.22.4.2" /> < id nullFlavor="NA" /> <code codeSystem="local&quot ; code="GAP" displayName="ANION GAP" /> < statusCode code="completed" /> <effectiveTime value=& quot;465900256360" /> <value unit="mmol/L" xsi: type="PQ" value="6" /> <referenceRange> <observationRange> <text>5-15</text> &lt ;/observationRange> </referenceRange> </observation& gt; </component> <component> <observation moodCode="EVN" classCode="OBS"> <templateId root="2.16.840.1.403051.10..22.4.2" /> <id nullFlavor ="NA" /> <code codeSystem="local" code=" GLU" displayName="GLUCOSE" /> <statusCode code=& quot;completed" /> <effectiveTime value="293349133615& quot; /> <value unit="mg/dL" xsi:type="PQ" value="95" /> <referenceRange> < observationRange> <text>70-99</text> < /observationRange> </referenceRange> </observation& gt; </component> <component> <observation moodCode="EVN" classCode="OBS"> <templateId root="2.16.840.1.178432.10..22.4.2" /> <id nullFlavor ="NA" /> <code codeSystem="local" code=" CA" displayName="CALCIUM" /> <statusCode code=& quot;completed" /> <effectiveTime value="467633706824& quot; /> <value unit="mg/dL" xsi:type="PQ" value="8.7" /> <referenceRange> < observationRange> <text>8.5-10.1</text> & lt;/observationRange> </referenceRange> </ observation> </component> <component> < observation moodCode="EVN" classCode="OBS"> < templateId root="2.16.840.1.125381.10.20.22.4.2" /> < id nullFlavor="NA" /> <code codeSystem="local&quot ; code="BUN" displayName="BLOOD UREA NITROGEN" /> <statusCode code="completed" /> <effectiveTime value="312317512033" /> <value unit="mg/dL" xsi:type="PQ" value="17" /> <referenceRange& gt; <observationRange> <text>7-20</text& gt; </observationRange> </referenceRange> </observation> </component> <component> &lt ;observation moodCode="EVN" classCode="OBS"> &lt ;templateId root="2.16.840.1.640403.10.20.22.4.2" /> < id nullFlavor="NA" /> <code codeSystem="local&quot ; code="CREAT" displayName="CREATININE" /> < statusCode code="completed" /> <effectiveTime value=& quot;977978862992" /> <value unit="mg/dL" xsi:type ="PQ" value="0.8" /> <referenceRange> <observationRange> <text>0.8-1.3</text> </observationRange> </referenceRange> &lt ;/observation> </component> <component> < observation moodCode="EVN" classCode="OBS"> < templateId root="2.16.840.1.576784.10.20.22.4.2" /> < id nullFlavor="NA" /> <code codeSystem="local" code=& quot;NA" displayName="SODIUM" /> <statusCode code=" completed" /> <effectiveTime value="306761983417" /> <value unit="mmol/L" xsi:type="PQ" value=& quot;131" /> <interpretationCode codeSystem="local&quot ; code="*" /> <referenceRange> < observationRange> <text>135-148</text> & lt;/observationRange> </referenceRange> </ observation> </component> <component> < observation moodCode="EVN" classCode="OBS"> < templateId root="2.16.840.1.019631.10.20.22.4.2" /> < id nullFlavor="NA" /> <code codeSystem="local&quot ; code="CL" displayName="CHLORIDE" /> < statusCode code="completed" /> <effectiveTime value=& quot;177125051424" /> <value unit="mmol/L" xsi: type="PQ" value="97" /> <interpretationCode codeSystem="local" code="*" /> < referenceRange> <observationRange> <text> 98-110</text> </observationRange> </ referenceRange> </observation> </component> < component> <observation moodCode="EVN" classCode=" OBS"> <templateId root="2.16.840.1.804190.10.20.22.4.2& quot; /> <id nullFlavor="NA" /> <code codeSystem="local" code="CO2" displayName="CARBON DIOXIDE" /> <statusCode code="completed" /> <effectiveTime value="211016996758" /> < value unit="mmol/L" xsi:type="PQ" value="28" /&gt ; <referenceRange> <observationRange> <text>21-32</text> </observationRange> </referenceRange> </observation> </component> </organizer> </entry> <entry> <organizer moodCode=& quot;EVN" classCode="BATTERY"> <templateId root=" 2.16.840.1.213650.10.20.22.4.1" /> <id nullFlavor="NA&quot ; /> <code codeSystem="local" code="HDLPRO" displayName="LIPID PANEL" /> <statusCode code=" completed" /> <component> <observation moodCode=" EVN" classCode="OBS"> <templateId root=" 2.16.840.1.758677.10.20.22.4.2" /> <id nullFlavor="NA& quot; /> <code codeSystem="local" code="CHOL/HDL& quot; displayName="CHOLESTEROL/HDL RATIO" /> < statusCode code="completed" /> <effectiveTime value=& quot;317645088426" /> <value unit="" xsi:type=& quot;PQ" value="2.0" /> <referenceRange> <observationRange> <text> < 5.0</text> </observationRange> </referenceRange> & lt;/observation> </component> <component>< observation moodCode="EVN" classCode="OBS"> < templateId root="2.16.840.1.394752.10.20.22.4.2" /> < id nullFlavor="NA" /> <code codeSystem="local" code ="LDLX" displayName="LDL CHOLESTEROL" /> < statusCode code="completed" /> <effectiveTime value=& quot;411806826880" /> <value unit="mg/dL" xsi:type ="PQ" value="59" /> <referenceRange> <observationRange> <text>< 100</text> </observationRange> </referenceRange> </ observation> </component> <component> < observation moodCode="EVN" classCode="OBS"> < templateId root="2.16.840.1.875095.10.20.22.4.2" /> < id nullFlavor="NA" /> <code codeSystem="local&quot ; code="VLDL" displayName="VLDL CHOLESTEROL" /> & lt;statusCode code="completed" /> <effectiveTime value= "401108837466" /> <value unit="mg/dL" xsi: type="PQ" value="9" /> <referenceRange> <observationRange> <text>< 30</text > </observationRange> </referenceRange> &lt ;/observation> </component> <component> < observation moodCode="EVN" classCode="OBS"> < templateId root="2.16.840.1.244019.10.20.22.4.2" /> < id nullFlavor="NA" /> <code codeSystem="local&quot ; code="TRIG" displayName="TRIGLYCERIDES" /> &lt ;statusCode code="completed" /> <effectiveTime value=& quot;419865837278" /> <value unit="mg/dL" xsi:type ="PQ" value="44" /> <referenceRange> <observationRange> <text>< 150</text> </observationRange> </referenceRange> < /observation> </component> <component> < observation moodCode="EVN" classCode="OBS"> < templateId root="2.16.840.1.996922.10.20.22.4.2" /> < id nullFlavor="NA" /> <code codeSystem="local&quot ; code="CHOL" displayName="CHOLESTEROL" /> < statusCode code="completed" /> <effectiveTime value=& quot;962122231620" /> <value unit="mg/dL" xsi:type ="PQ" value="139" /> <referenceRange> <observationRange> <text>< 200</text& gt; </observationRange> </referenceRange> </observation> </component> <component> < observation moodCode="EVN" classCode="OBS"> < templateId root="2.16.840.1.283380.10.20.22.4.2" /> <id nullFlavor="NA" /> <code codeSystem="local" code="HDL" displayName="HDL CHOLESTEROL" /> < statusCode code="completed" /> <effectiveTime value=& quot;961204226723" /> <value unit="mg/dL" xsi:type ="PQ" value="71" /> <referenceRange> <observationRange> <text>> 39</text&gt ; </observationRange> </referenceRange> & lt;/observation> </component> </organizer> </entry&gt ; <entry> <organizer moodCode="EVN" classCode=" BATTERY"> <templateId root="2.16.840.1.292646.10.20.22.4.1& quot; /> <id nullFlavor="NA" /> <code codeSystem ="local" code="HBA1C" displayName="HEMOGLOBIN A1C&quot ; /> <statusCode code="completed" /> <component& gt; <observation moodCode="EVN" classCode="OBS"&gt ; <templateId root="2.16.840.1.393532.10.20.22.4.2" /> <id nullFlavor="NA" /> <code codeSystem="local& quot; code="HBA1C" displayName="HEMOGLOBIN A1C" /> <statusCode code="completed" /> <effectiveTime value="486346655334" /> <value unit="%& quot; xsi:type="PQ" value="5.9" /> < interpretationCode codeSystem="local" code="*" /> <referenceRange> <observationRange> < text>< 5.7</text> </observationRange> </referenceRange> </observation> </component> & lt;/organizer> </entry> <entry> <organizer moodCode=&quot ;EVN" classCode="BATTERY"> <templateId root=" 2.16.840.1.195945.10.20.22.4.1" /><id nullFlavor="NA" /&gt ; <code codeSystem="local" code="MRSAS" displayName= "MRSA SURVEILLANCE SCREEN" /> <statusCode code=" completed" /> <component> <observation moodCode=& quot;EVN" classCode="OBS"> <templateId root=" 2.16.840.1.134304.10.20.22.4.2" /> <id nullFlavor="NA& quot; /> <code codeSystem="local" code="UNC" displayName="Uncategorized" /> <statusCode code=" completed" /> <effectiveTime value="555526598090" /> <value xsi:type="ST" value="<pre><b&gt ;MRSA SURVEILLANCE SCREEN</b> See BelowMRSA SURVEILLANCE SCREEN(F) Zac Date/Time: 05/01/2012 09:43 Rosibel Date/Time: 05/02/2012 09:02SOURCE: ANTERIOR NARESSPEC DESC: N[facility]ETHICILLIN [facility] [phone] [place] [address] </pre>" /> <referenceRange> < observationRange> <text /> </ observationRange> </referenceRange> </observation&gt ; </component> </organizer> </entry> <entry> <organizer moodCode="EVN" classCode="BATTERY"> <templateId root="2.16.840.1.966549.10.20.22.4.1" /> < id nullFlavor="NA" /> <code codeSystem="local" code="UA" displayName="URINALYSIS, ROUTINE" /> < statusCode code="completed" /> <component> < observation moodCode="EVN" classCode="OBS"> < templateId root="2.16.840.1.492116.10.20.22.4.2" /> < id nullFlavor="NA" /> <code codeSystem="local&quot ; code="LEUESU" displayName="UA LEUKOCYTE ESTERASE DIPSTICK&quot ; /> <statusCode code="completed" /> < effectiveTime value="[id number]" /> <value unit=&quot ;" xsi:type="PQ" value="NEGATIVE" /> < referenceRange> <observationRange> <text> NEGATIVE</text> </observationRange> </ referenceRange> </observation> </component> < component> <observation moodCode="EVN" classCode=" OBS"> <templateId root="[id number]& quot; /> <id nullFlavor="NA" /> <code codeSystem="local" code="NITRIU" displayName="UA NITRITE DIPSTICK" /> <statusCode code="completed" /> <effectiveTime value="[id number]" /> & lt;value unit="" xsi:type="PQ" value="NEGATIVE" /& gt; <referenceRange> <observationRange> < text>NEGATIVE</text> </observationRange> < /referenceRange> </observation> </component> &lt ;component> <observation moodCode="EVN" classCode=" OBS"> <templateId root="2.16.840.1.095953.10.20.22.4.2" / > <id nullFlavor="NA" /> <code codeSystem="local" code="PROTEIU" displayName="UA PROTEIN DIPSTICK" /> <statusCode code="completed" /> <effectiveTime value="971655551225" /> < value unit="" xsi:type="PQ" value="NEGATIVE" /&gt ; <referenceRange> <observationRange> <text>NEGATIVE</text> </observationRange> </referenceRange> </observation> </component&gt ; <component> <observation moodCode="EVN" classCode="OBS"> <templateId root=" 2.16.840.1.554065.10..22.4.2" /> <id nullFlavor="NA& quot; /> <code codeSystem="local" code="DGLUU&quot ; displayName="UA GLUCOSE DIPSTICK" /> <statusCode code ="completed" /> <effectiveTime value="201329413157 " /> <value unit="" xsi:type="PQ" value= "NEGATIVE" /> <referenceRange> < observationRange> <text>NEGATIVE</text> & lt;/observationRange> </referenceRange> </observation> </component> <component> <observation moodCode=& quot;EVN" classCode="OBS"> <templateId root=" 2.16.840.1.425799.10.20.22.4.2" /> <id nullFlavor="NA& quot; /> <code codeSystem="local" code="KETONU& quot; displayName="UA KETONE DIPSTICK" /> <statusCode code="completed" /> <effectiveTime value=" 773858367841" /> <value unit="" xsi:type="PQ& quot; value="NEGATIVE" /> <referenceRange> <observationRange> <text>NEGATIVE</text> </observationRange> </referenceRange> </ observation> </component> <component> < observation moodCode="EVN" classCode="OBS"> < templateId root="2.16.840.1.004000.10.20.22.4.2" /> < id nullFlavor="NA" /> <code codeSystem="local" code= "UROBILU" displayName="UA UROBILINOGEN DIPSTICK" /> <statusCode code="completed" /> <effectiveTime value="564945819445" /> <value unit="" xsi: type="PQ"value="NORMAL" /> <referenceRange&gt ; <observationRange> <text>NORMAL</text> </observationRange> </referenceRange> & lt;/observation> </component> <component> < observation moodCode="EVN" classCode="OBS"> < templateId root="2.16.840.1.292802.10.20.22.4.2" /> < id nullFlavor="NA" /> <code codeSystem="local&quot ; code="BILU" displayName="UA BILIRUBIN DIPSTICK" /> <statusCode code="completed" /> < effectiveTime value="726416828057" /> <value unit=&quot ;" xsi:type="PQ" value="NEGATIVE" /> < referenceRange> <observationRange> <text>NEGATIVE</ text> </observationRange> </referenceRange> </observation> </component> <component> <observation moodCode="EVN" classCode="OBS"> <templateId root="2.16.840.1.269132.10.20.22.4.2" /> <id nullFlavor="NA" /> <code codeSystem=" local" code="LAURA" displayName="UA BLOOD DIPSTICK" /&gt ; <statusCode code="completed" /> <effectiveTime value="073866380060" /> <value unit="" xsi: type="PQ" value="NEGATIVE" /> <referenceRange > <observationRange> <text>NEGATIVE</ text> </observationRange> </referenceRange> </observation> </component> <component> <observation moodCode="EVN" classCode="OBS"> <templateId root="2.16.840.1.914398.10.20.22.4.2" /> <id nullFlavor="NA" /> <code codeSystem=" local" code="UAVOL" displayName="UA VOLUME FOR EXAM" /& gt; <statusCode code="completed" /> < effectiveTime value="411261872162" /> <value unit=&quot ;mL" xsi:type="PQ" value="12.0" /> < referenceRange> <observationRange> <text> (12mL STD)</text> </observationRange> </ referenceRange> </observation> </component> < component> <observation moodCode="EVN" classCode=" OBS"> <templateId root="2.16.840.1.135938.10.20.22.4.2& quot; /> <id nullFlavor="NA" /> <code codeSystem="local" code="SPGRU" displayName="UA SPECIFIC GRAVITY" /> <statusCodecode="completed" / > <effectiveTime value="346247863525" /> < value unit="" xsi:type="PQ" value="1.014" /> <interpretationCode codeSystem="local" code="*" / > <referenceRange> <observationRange> <text>1.015-1.025</text> </observationRange&gt ; </referenceRange> </observation> </ component> <component> <observation moodCode="EVN& quot; classCode="OBS"> <templateId root=" 2.16.840.1.147746.10.20.22.4.2" /> <id nullFlavor="NA& quot; /> <code codeSystem="local" code="TRICIA" displayName="UR PH" /> <statusCode code="completed " /> <effectiveTime value="556967720621" /> & lt;value unit="" xsi:type="PQ" value="7.0" /> <referenceRange> <observationRange> <text>5.0-7.0</text> </observationRange> </ referenceRange> </observation> </component> </ organizer> </entry> <entry> <organizer moodCode="EVN& quot; classCode="BATTERY"> <templateId root=" 2.16.840.1.105588.10.20.22.4.1" /> <id nullFlavor="NA&quot ; /> <code codeSystem="local" code="UA" displayName="URINALYSIS, ROUTINE" /> <statusCode code=&quot ;completed" /> <component> <observation moodCode=& quot;EVN" classCode="OBS"> <templateId root=" 2.16.840.1.626633.10.20.22.4.2" /> <id nullFlavor="NA& quot; /> <code codeSystem="local" code="LEUESU& quot; displayName="UA LEUKOCYTE ESTERASE DIPSTICK" /> < statusCode code="completed" /> <effectiveTime value=&quot ;781386633221" /> <value unit="" xsi:type="PQ " value="NEGATIVE" /> <referenceRange> <observationRange> <text>NEGATIVE</text> </observationRange> </referenceRange> </ observation> </component> <component> < observation moodCode="EVN" classCode="OBS"> < templateId root="2.16.840.1.104558.10.20.22.4.2" /> < id nullFlavor="NA" /> <code codeSystem="local&quot ; code="NITRIU" displayName="UA NITRITE DIPSTICK" /> <statusCode code="completed" /><effectiveTime value=& quot;331072303000" /> <value unit="" xsi:type=& quot;PQ" value="NEGATIVE" /> <referenceRange> <observationRange> <text>NEGATIVE</text& gt; </observationRange> </referenceRange> & lt;/observation> </component> <component> < observation moodCode="EVN" classCode="OBS"> < templateId root="2.16.840.1.380916.10.20.22.4.2" /> < id nullFlavor="NA" /> <code codeSystem="local&quot ; code="PROTEIU" displayName="UA PROTEIN DIPSTICK" /> <statusCode code="completed" /> < effectiveTime value="908498186558" /> <value unit=&quot ;" xsi:type="PQ" value="NEGATIVE" /> < referenceRange> <observationRange> <text> NEGATIVE</text> </observationRange></referenceRange&gt ; </observation> </component> <component> <observation moodCode="EVN" classCode="OBS"> <templateId root="2.16.840.1.954798.10.20.22.4.2" /> <id nullFlavor="NA" /> <code codeSystem="local " code="DGLUU" displayName="UA GLUCOSE DIPSTICK" /> <statusCode code="completed" /> < effectiveTime value="273057641888" /> <value unit=&quot ;" xsi:type="PQ" value="NEGATIVE" /> < referenceRange> <observationRange> <text> NEGATIVE</text> </observationRange> </ referenceRange> </observation> </component> < component> <observation moodCode="EVN" classCode=" OBS"> <templateId root="2.16.840.1.696103.10..22.4.2& quot; /> <id nullFlavor="NA" /><code codeSystem=& quot;local" code="KETONU" displayName="UA KETONE DIPSTICK& quot; /> <statusCode code="completed" /> & lt;effectiveTime value="965786679860" /> <value unit=& quot;" xsi:type="PQ" value="NEGATIVE" /> & lt;referenceRange> <observationRange> <text>NEGATIVE </text> </observationRange> </referenceRange& gt; </observation> </component> <component> <observation moodCode="EVN" classCode="OBS"> <templateId root="2.16.840.1.359474.10.20.22.4.2" /> <id nullFlavor="NA" /> <codecodeSystem=" local" code="UROBILU" displayName="UA UROBILINOGEN DIPSTICK& quot; /> <statusCode code="completed" /> & lt;effectiveTime value="648450134843" /> <value unit=& quot;" xsi:type="PQ" value="NORMAL" /> < referenceRange> <observationRange> <text> NORMAL</text> </observationRange> </ referenceRange> </observation> </component> < component> <observation moodCode="EVN" classCode=" OBS"> <templateId root="2.16.840.1.397307.10.20.22.4.2& quot; /> <id nullFlavor="NA" /> <code codeSystem="local" code="BILU" displayName="UA BILIRUBIN DIPSTICK" /> <statusCode code="completed" /& gt; <effectiveTime value="850976604041" /> &lt ;value unit="" xsi:type="PQ" value="NEGATIVE" /&gt ; <referenceRange> <observationRange> <text>NEGATIVE</text> </observationRange> </referenceRange> </observation> </component&gt ; <component> <observation moodCode="EVN" classCode="OBS"> <templateId root=" 2.16.840.1.141794.10.20.22.4.2" /> <id nullFlavor="NA& quot; /> <code codeSystem="local" code="LAURA" displayName="UA BLOOD DIPSTICK" /> <statusCode code=& quot;completed" /> <effectiveTime value="460818602949& quot; /> <value unit="" xsi:type="PQ" value=& quot;NEGATIVE" /> <referenceRange> < observationRange> <text>NEGATIVE</text> & lt;/observationRange> </referenceRange> </ observation> </component> <component> < observation moodCode="EVN" classCode="OBS"> < templateId root="2.16.840.1.878734.10.20.22.4.2" /> < id nullFlavor="NA" /> <code codeSystem="local&quot ; code="UAVOL" displayName="UA VOLUME FOR EXAM" /> <statusCode code="completed" /> <effectiveTime value="488164800386" /> <value unit="mL" xsi:type=& quot;PQ" value="12.0" /> <referenceRange> <observationRange> <text>(12mL STD)</text&gt ; </observationRange> </referenceRange> & lt;/observation> </component> <component> < observation moodCode="EVN" classCode="OBS"> < templateId root="2.16.840.1.805343.10.20.22.4.2" /> <id nullFlavor="NA" /> <code codeSystem="local" code="SPGRU" displayName="UA SPECIFIC GRAVITY" /> <statusCode code="completed" /> <effectiveTime value="235135336421" /> <value unit="" xsi: type="PQ" value="1.014" /> < interpretationCode codeSystem="local" code="*" /> <referenceRange> <observationRange> <text> 1.015-1.025</text> </observationRange> </ referenceRange> </observation> </component> < component> <observation moodCode="EVN" classCode=" OBS"> <templateId root="2.16.840.1.967127.10.20.22.4.2&quot ; /> <id nullFlavor="NA" /> <code codeSystem="local" code="TRICIA" displayName="UR PH" /> <statusCode code="completed" /> < effectiveTime value="681887892276" /> <value unit=&quot ;" xsi:type="PQ" value="7.0" /> < referenceRange> <observationRange> <text> 5.0-7.0</text> </observationRange> </ referenceRange> </observation> </component> </ organizer> </entry> <entry> <organizer moodCode="EVN " classCode="BATTERY"> <templateId root=" 2.16.840.1.550882.10.20.22.4.1" /> <id nullFlavor="NA&quot ; /> <code codeSystem="local" code="iCG8" displayName="SURGERY PROFILE BEDSIDE" /> <statusCode code=& quot;completed" /> <component> <observation moodCode="EVN" classCode="OBS"> <templateId root="2.16.840.1.574490.10.20.22.4.2" /> <id nullFlavor ="NA"/> <code codeSystem="local" code="K " displayName="POTASSIUM" /> <statusCode code=& quot;completed" /> <effectiveTime value="047028674599& quot; /> <value unit="mmol/L" xsi:type="PQ" value="3.5" /> <referenceRange> < observationRange> <text>3.5-5.3</text> </ observationRange> </referenceRange> </observation&gt ; </component> <component> <observation moodCode ="EVN" classCode="OBS"> <templateId root=& quot;2.16.840.1.323693.10.20.22.4.2" /> <id nullFlavor=&quot ;NA" /> <code codeSystem="local" code="JAIME& quot; displayName="ABG BASE EXCESS" /> <statusCode code=& quot;completed" /> <effectiveTime value="966107131959& quot; /> <value unit="meq/L" xsi:type="PQ" value="-1.0" /> <referenceRange> < observationRange> <text>-3.0-3.0</text> & lt;/observationRange> </referenceRange></observation> </component> <component> <observation moodCode=& quot;EVN" classCode="OBS"> <templateId root=" 2.16.840.1.757473.10.20.22.4.2" /> <id nullFlavor="NA& quot; /> <code codeSystem="local" code="HCO3A&quot ; displayName="ABG BICARBONATE" /> <statusCode code=& quot;completed" /> <effectiveTime value="658383310968& quot; /> <value unit="meq/L" xsi:type="PQ" value="24.0" /> <referenceRange> < observationRange> <text>23.0-28.0</text> </observationRange> </referenceRange> </ observation> </component> <component> < observation moodCode="EVN" classCode="OBS"> < templateId root="2.16.840.1.060595.10.20.22.4.2" /> < id nullFlavor="NA" /> <code codeSystem="local&quot ; code="METHOD" displayName="METHOD" /> < statusCode code="completed" /> <effectiveTime value=& quot;969169269241" /> <value unit="" xsi:type=& quot;PQ" value="Bedside" /> <referenceRange> <observationRange> <text /> </ observationRange> </referenceRange> </observation&gt ; </component> <component> <observation moodCode ="EVN" classCode="OBS"> <templateId root=" 2.16.840.1.561516.10.20.22.4.2" /> <id nullFlavor="NA& quot; /> <code codeSystem="local" code="PCO2A&quot ; displayName="ABG PCO2" /> <statusCode code=" completed" /> <effectiveTime value="456510129925" /> <value unit="mmHg" xsi:type="PQ" value=& quot;38" /> <referenceRange> < observationRange> <text>34-45</text> < /observationRange> </referenceRange> </observation& gt; </component> <component> <observation moodCode="EVN" classCode="OBS"> <templateId root="2.16.840.1.903680.10.20.22.4.2" /> <id nullFlavor ="NA" /> <code codeSystem="local" code="PHAX& quot; displayName="ABG PH" /> <statusCode code=" completed" /> <effectiveTime value="954771110758" /> <value unit="" xsi:type="PQ" value=" 7.41" /> <referenceRange> <observationRange > <text>7.35-7.45</text> </ observationRange> </referenceRange> </observation&gt ; </component> <component> <observation moodCode ="EVN" classCode="OBS"> <templateId root=& quot;2.16.840.1.703463.10.20.22.4.2" /> <id nullFlavor=&quot ;NA" /> <code codeSystem="local" code="PO2A& quot; displayName="ABG PO2" /> <statusCode code=" completed" /> <effectiveTime value="713747161757" /> <value unit="mmHg" xsi:type="PQ" value="245& quot; /> <interpretationCode codeSystem="local" code=& quot;*" /> <referenceRange> < observationRange> <text>75-100</text> &lt ;/observationRange> </referenceRange> </observation& gt; </component> <component> <observation moodCode="EVN" classCode="OBS"> <templateId root="2.16.840.1.213815.10.20.22.4.2" /> <id nullFlavor ="NA" /> <code codeSystem="local" code=" SATA" displayName="ABG O2 SATURATION" /> < statusCode code="completed" /> <effectiveTime value=& quot;260231257894" /> <value unit="%" xsi: type="PQ" value="100" /> <referenceRange> <observationRange> <text>93-100</text> </observationRange> </referenceRange> </ observation> </component> <component> < observation moodCode="EVN" classCode="OBS"> < templateId root="2.16.840.1.216745.10.20.22.4.2" /> < id nullFlavor="NA" /> <code codeSystem="local&quot ; code="CMETHOD" displayName="METHOD" /> < statusCode code="completed" /> <effectiveTime value=& quot;280492028924" /> <value unit="" xsi:type=& quot;PQ" value="Bedside" /> <referenceRange> <observationRange> <text /> </ observationRange> </referenceRange> </observation&gt ; </component> <component> <observation moodCode ="EVN" classCode="OBS"> <templateId root=& quot;2.16.840.1.340809.10.20.22.4.2" /> <id nullFlavor=&quot ;NA" /> <code codeSystem="local" code=" HMETHOD" displayName="METHOD" /> <statusCode code= "completed" /> <effectiveTime value="462588313155& quot;/> <value unit="" xsi:type="PQ" value=& quot;Bedside" /> <referenceRange> < observationRange> <text /> </observationRange> </referenceRange> </observation> </component& gt; <component> <observation moodCode="EVN" classCode="OBS"> <templateId root=" 2.16.840.1.124314.10..22.4.2" /><id nullFlavor="NA" /&gt ; <code codeSystem="local" code="GLU" displayName="GLUCOSE" /> <statusCode code=" completed" /> <effectiveTime value="439299166588" / > <value unit="mg/dL" xsi:type="PQ" value=& quot;94" /> <referenceRange> < observationRange> <text>70-99</text> < /observationRange> </referenceRange> </observation& gt; </component> <component> <observation moodCode="EVN" classCode="OBS"> <templateId root="2.16.840.1.547917.10.20.22.4.2" /> <id nullFlavor ="NA" /> <code codeSystem="local" code=" HGBT" displayName="HEMOGLOBIN" /> <statusCode code ="completed" /> <effectiveTime value="844495632639 " /> <value unit="gm/dL" xsi:type="PQ" value="10.5" /> <interpretationCode codeSystem=" local" code="*" /> <referenceRange> <observationRange><text>14.0-18.0</text> </ observationRange> </referenceRange> </observation&gt ; </component> <component> <observation moodCode ="EVN" classCode="OBS"> <templateId root=& quot;2.16.840.1.096861.10.20.22.4.2" /> <id nullFlavor=&quot ;NA" /> <code codeSystem="local" code="HCTT& quot; displayName="HEMATOCRIT" /> <statusCode code=& quot;completed" /> <effectiveTime value="377196131340& quot; /> <value unit="%" xsi:type="PQ&quot ; value="31.0" /> <interpretationCode codeSystem=" local" code="*" /> <referenceRange> < observationRange> <text>40.0-54.0</text> </observationRange> </referenceRange> </ observation> </component> <component> < observation moodCode="EVN" classCode="OBS"> < templateId root="2.16.840.1.054918.10.20.22.4.2" /> < id nullFlavor="NA" /> <code codeSystem="local&quot ; code="NA" displayName="SODIUM" /> < statusCode code="completed" /> <effectiveTime value=& quot;079180493143" /> <value unit="mmol/L" xsi: type="PQ" value="134" /> <interpretationCode codeSystem="local" code="*" /> < referenceRange> <observationRange> <text> 135-148</text> </observationRange> </ referenceRange> </observation> </component> < component> <observation moodCode="EVN" classCode=" OBS"> <templateId root="2.16.840.1.844686.10..22.4.2& quot; /> <id nullFlavor="NA" /> <code codeSystem="local" code="CO2" displayName="CARBON DIOXIDE" /> <statusCode code="completed" /> <effectiveTime value="417832411790" /> < value unit="mmol/L" xsi:type="PQ" value="25" /&gt ; <referenceRange> <observationRange> <text>21-32</text> </observationRange> </referenceRange> </observation> </component> <component> <observation moodCode="EVN" classCode= "OBS"> <templateId root=" 2.16.840.1.347183.10.20.22.4.2" /> <id nullFlavor="NA& quot; /> <code codeSystem="local" code="CAION" displayName="CALCIUM IONIZED" /> <statusCode code=&quot ;completed" /> <effectiveTime value="069583128378&quot ; /> <value unit="mg/dL" xsi:type="PQ" value= "4.6" /> <referenceRange> < observationRange> <text>4.5-5.3</text> </ observationRange> </referenceRange> </observation&gt ; </component> </organizer> </entry> <entry> <organizer moodCode="EVN" classCode="BATTERY"> <templateId root="2.16.840.1.818108.10.20.22.4.1" /> < id nullFlavor="NA" /> <code codeSystem="local" code="iCG8" displayName="SURGERY PROFILE BEDSIDE" /> <statusCode code="completed" /> <component>< observation moodCode="EVN" classCode="OBS"> < templateId root="2.16.840.1.747588.10.20.22.4.2" /> < id nullFlavor="NA" /> <code codeSystem="local" code ="K" displayName="POTASSIUM" /> <statusCode code="completed" /> <effectiveTime value=" 229837021627" /> <value unit="mmol/L" xsi:type=& quot;PQ" value="3.5" /> <referenceRange> <observationRange> <text>3.5-5.3</text> </observationRange> </referenceRange> </ observation> </component> <component> < observation moodCode="EVN" classCode="OBS"> < templateId root="2.16.840.1.982304.10..22.4.2" /> < id nullFlavor="NA" /> <code codeSystem="local&quot ; code="JAIME" displayName="ABG BASE EXCESS" /> & lt;statusCode code="completed" /> <effectiveTime value= "758021540251" /> <value unit="meq/L" xsi: type="PQ" value="-1.0" /> <referenceRange> <observationRange> <text>-3.0-3.0</text& gt; </observationRange> </referenceRange> </observation> </component> <component> &lt ;observation moodCode="EVN" classCode="OBS"> &lt ;templateId root="2.16.840.1.038455.10.20.22.4.2" /> < id nullFlavor="NA" /> <code codeSystem="local&quot ; code="HCO3A" displayName="ABG BICARBONATE" /> <statusCode code="completed" /> <effectiveTime value ="178656727863" /> <value unit="meq/L" xsi:type=&quot ;PQ" value="24.0" /> <referenceRange> <observationRange> <text>23.0-28.0</text> </observationRange> </referenceRange> </ observation> </component> <component> < observation moodCode="EVN" classCode="OBS"> < templateId root="2.16.840.1.945995.10.20.22.4.2" /> <id nullFlavor="NA" /> <code codeSystem="local" code="METHOD" displayName="METHOD" /> < statusCode code="completed" /> <effectiveTime value=& quot;501906060249" /> <value unit="" xsi:type=& quot;PQ" value="Bedside" /> <referenceRange> <observationRange> <text /> </ observationRange> </referenceRange> </observation> </component> <component> <observation moodCode=& quot;EVN" classCode="OBS"> <templateId root=" 2.16.840.1.966790.10..22.4.2" /> <id nullFlavor="NA& quot; /> <code codeSystem="local" code="PCO2A&quot ; displayName="ABG PCO2" /> <statusCode code=" completed" /> <effectiveTime value="802778889350" /> <value unit="mmHg" xsi:type="PQ" value=& quot;38" /> <referenceRange> < observationRange> <text>34-45</text> </ observationRange> </referenceRange> </observation&gt ; </component> <component> <observation moodCode ="EVN" classCode="OBS"> <templateId root=& quot;2.16.840.1.913814.10..22.4.2" /> <id nullFlavor=&quot ;NA" /> <codecodeSystem="local" code="PHAX& quot; displayName="ABG PH" /> <statusCode code=" completed" /> <effectiveTime value="926683412333" /> <value unit="" xsi:type="PQ" value=" 7.41" /> <referenceRange> <observationRange> <text>7.35-7.45</text> </ observationRange> </referenceRange> </observation&gt ; </component> <component> <observation moodCode ="EVN" classCode="OBS"> <templateId root=& quot;2.16.840.1.529444.10.20.22.4.2" /> <id nullFlavor=&quot ;NA" /> <code codeSystem="local" code="PO2A& quot; displayName="ABG PO2" /> <statusCode code=" completed" /> <effectiveTime value="287460639762" /> <value unit="mmHg" xsi:type="PQ" value=& quot;245" /> <interpretationCode codeSystem="local&quot ; code="*" /> <referenceRange> <observationRange > <text>75-100</text> </ observationRange> </referenceRange> </observation&gt ; </component> <component> <observation moodCode ="EVN" classCode="OBS"> <templateId root=" 2.16.840.1.074544.10.20.22.4.2" /> <id nullFlavor="NA& quot; /> <code codeSystem="local" code="SATA&quot ; displayName="ABG O2 SATURATION" /> <statusCode code=& quot;completed" /> <effectiveTime value="348768465809& quot; /> <value unit="%" xsi:type="PQ&quot ; value="100" /> <referenceRange> < observationRange> <text>93-100</text> &lt ;/observationRange> </referenceRange> </observation&gt ; </component> <component> <observation moodCode ="EVN" classCode="OBS"> <templateId root=& quot;2.16.840.1.514401.10.20.22.4.2" /> <id nullFlavor=&quot ;NA" /> <code codeSystem="local" code=" CMETHOD" displayName="METHOD" /> <statusCode code= "completed" /> <effectiveTime value="330386004018& quot; /> <value unit="" xsi:type="PQ" value=& quot;Bedside" /> <referenceRange> < observationRange> <text /> </observationRange> </referenceRange> </observation> </component > <component> <observation moodCode="EVN" classCode="OBS"> <templateId root=" 2.16.840.1.259288.10..22.4.2" /> <id nullFlavor="NA& quot; /> <code codeSystem="local" code="HMETHOD& quot; displayName="METHOD" /> <statusCode code=" completed" /> <effectiveTime value="614230726870" /> <value unit="" xsi:type="PQ" value="Bedside " /> <referenceRange> <observationRange&gt ; <text /> </observationRange> < /referenceRange> </observation> </component> &lt ;component> <observation moodCode="EVN" classCode=" OBS"> <templateId root="2.16.840.1.375751.10.20.22.4.2& quot; /> <id nullFlavor="NA" /> <code codeSystem="local" code="GLU" displayName="GLUCOSE&quot ; /> <statusCode code="completed" /> < effectiveTime value="987183413609" /> <value unit=&quot ;mg/dL" xsi:type="PQ" value="94" /> < referenceRange> <observationRange> <text> 70-99</text> </observationRange> </referenceRange> </observation> </component> <component> <observation moodCode="EVN" classCode="OBS"> <templateIdroot="2.16.840.1.666122.10.20.22.4.2" /> <id nullFlavor="NA" /> <code codeSystem="local& quot; code="HGBT" displayName="HEMOGLOBIN" /> & lt;statusCode code="completed" /> <effectiveTime value= "854311400561" /> <value unit="gm/dL" xsi: type="PQ" value="10.5" /> < interpretationCode codeSystem="local" code="*" /> <referenceRange> <observationRange> < text>14.0-18.0</text> </observationRange> &lt ;/referenceRange></observation> </component> < component> <observation moodCode="EVN" classCode=" OBS"> <templateId root="2.16.840.1.787562.10..22.4.2& quot; /> <id nullFlavor="NA" /> <code codeSystem="local" code="HCTT" displayName="HEMATOCRIT& quot; /> <statusCode code="completed" /> & lt;effectiveTime value="347856917416" /> <value unit=&quot ;%" xsi:type="PQ" value="31.0" /> < interpretationCode codeSystem="local" code="*" /> <referenceRange> <observationRange> < text>40.0-54.0</text> </observationRange> </ referenceRange> </observation> </component> < component> <observation moodCode="EVN" classCode=" OBS"> <templateId root="2.16.840.1.698691.10.20.22.4.2& quot; /> <id nullFlavor="NA" /> <code codeSystem="local" code="NA" displayName="SODIUM" /> <statusCode code="completed" /> < effectiveTime value="793287226984" /> <value unit=&quot ;mmol/L" xsi:type="PQ" value="134" /> < interpretationCode codeSystem="local" code="*" /> <referenceRange> <observationRange> < text>135-148</text> </observationRange> </ referenceRange> </observation> </component> < component> <observation moodCode="EVN" classCode="OBS "> <templateId root="2.16.840.1.355204.10.20.22.4.2& quot; /> <id nullFlavor="NA" /> <code codeSystem="local" code="CO2" displayName="CARBON DIOXIDE" /> <statusCode code="completed" /> <effectiveTime value="145437641661" /> < value unit="mmol/L" xsi:type="PQ"value="25" /> <referenceRange> <observationRange> < text>21-32</text> </observationRange> </ referenceRange> </observation> </component> < component> <observation moodCode="EVN" classCode=" OBS"> <templateId root="2.16.840.1.923794.10.20.22.4.2& quot; /> <id nullFlavor="NA" /> <code codeSystem="local" code="CAION" displayName="CALCIUM IONIZED" /> <statusCode code="completed" /> <effectiveTime value="519986728630" /> <value unit="mg/dL" xsi:type="PQ" value="4.6" /> <referenceRange> <observationRange> &lt ;text>4.5-5.3</text> </observationRange> < /referenceRange></observation> </component> </ organizer> </entry> <entry><organizer moodCode="EVN& quot; classCode="BATTERY"> <templateId root=" 2.16.840.1.662277.10.20.22.4.1" /> <id nullFlavor="NA&quot ; /> <code codeSystem="local" code="iCG8" displayName="SURGERY PROFILE BEDSIDE" /> <statusCode code=& quot;completed" /> <component> <observation moodCode="EVN" classCode="OBS"> <templateId root="2.16.840.1.666059.10..22.4.2" /> <id nullFlavor ="NA" /> <code codeSystem="local" code=" K" displayName="POTASSIUM" /> <statusCode code=& quot;completed" /> <effectiveTime value="151760276375& quot; /> <value unit="mmol/L" xsi:type="PQ" value="3.7" /> <referenceRange> < observationRange> <text>3.5-5.3</text> & lt;/observationRange> </referenceRange> </ observation> </component> <component> < observation moodCode="EVN" classCode="OBS"> < templateId root="2.16.840.1.522840.10.20.22.4.2" /> < id nullFlavor="NA" /> <code codeSystem="local&quot ; code="JAIME" displayName="ABG BASE EXCESS" /> & lt;statusCode code="completed" /> <effectiveTime value= "346636560707" /> <value unit="meq/L" xsi:type=&quot ;PQ" value="1.0" /> <referenceRange> <observationRange> <text>-3.0-3.0</text> </observationRange> </referenceRange> </ observation> </component> <component> < observation moodCode="EVN" classCode="OBS"> < templateId root="2.16.840.1.766477.10.20.22.4.2" /> <id nullFlavor="NA" /> <code codeSystem="local" code="HCO3A" displayName="ABG BICARBONATE" /> & lt;statusCode code="completed" /> <effectiveTime value= "217992735657" /> <valueunit="meq/L" xsi:type ="PQ" value="27.0" /> <referenceRange> <observationRange> <text>23.0-28.0</text&gt ; </observationRange> </referenceRange> </ observation> </component> <component> < observation moodCode="EVN" classCode="OBS"> < templateId root="2.16.840.1.201144.10..22.4.2" /> < id nullFlavor="NA" /> <code codeSystem="local&quot ; code="METHOD" displayName="METHOD" /> < statusCode code="completed" /> <effectiveTime value=&quot ;974883242712" /> <value unit="" xsi:type="PQ " value="Bedside" /> <referenceRange> <observationRange> <text /> </ observationRange> </referenceRange> </observation&gt ; </component> <component><observation moodCode=" EVN" classCode="OBS"> <templateId root=" 2.16.840.1.019108...22.4.2" /> <id nullFlavor="NA& quot; /> <code codeSystem="local" code="PCO2A" displayName="ABG PCO2" /> <statusCode code=" completed" /> <effectiveTime value="281832211922" /> <value unit="mmHg" xsi:type="PQ" value=& quot;52" /> <interpretationCode codeSystem="local&quot ; code="*" /> <referenceRange> < observationRange> <text>34-45</text> < /observationRange> </referenceRange> </observation& gt; </component> <component> <observation moodCode="EVN" classCode="OBS"> <templateId root="2.16.840.1.267906.10.20.22.4.2" /> <id nullFlavor ="NA" /> <code codeSystem="local" code=" PHAX" displayName="ABG PH" /> <statusCode code=& quot;completed" /> <effectiveTime value="345163901422& quot; /> <value unit="" xsi:type="PQ" value=& quot;7.33" /> <interpretationCode codeSystem="local& quot; code="*" /> <referenceRange> < observationRange> <text>7.35-7.45</text> </observationRange> </referenceRange> </ observation> </component> <component> < observation moodCode="EVN" classCode="OBS"> < templateId root="2.16.840.1.244872.10.20.22.4.2" /> < id nullFlavor="NA" /> <code codeSystem="local&quot ; code="PO2A" displayName="ABG PO2" /> < statusCode code="completed" /> <effectiveTime value=& quot;631423065229" /> <value unit="mmHg" xsi:type= "PQ" value="545" /> <interpretationCode codeSystem="local" code="*" /> < referenceRange> <observationRange> <text> 75-100</text> </observationRange> </ referenceRange> </observation> </component> < component> <observation moodCode="EVN" classCode=" OBS"> <templateId root="2.16.840.1.150355.10.20.22.4.2& quot; /> <id nullFlavor="NA" /> <code codeSystem="local" code="SATA" displayName="ABG O2 SATURATION" /><statusCode code="completed" /> & lt;effectiveTime value="663712259810" /> <value unit=& quot;%" xsi:type="PQ" value="100" /> <referenceRange> <observationRange> < text>93-100</text> </observationRange> </ referenceRange> </observation> </component> < component> <observation moodCode="EVN" classCode=" OBS"> <templateId root="2.16.840.1.623677.10.20.22.4.2& quot; /> <id nullFlavor="NA" /> <code codeSystem="local" code="CMETHOD" displayName="METHOD& quot; /> <statusCode code="completed" /> & lt;effectiveTime value="902176384027" /> <value unit="& quot; xsi:type="PQ" value="Bedside" /> < referenceRange> <observationRange> <text /& gt; </observationRange> </referenceRange> </observation> </component> <component> &lt ;observation moodCode="EVN" classCode="OBS"> &lt ;templateId root="2.16.840.1.306729.10.20.22.4.2" /> < id nullFlavor="NA" /> <code codeSystem="local&quot ; code="HMETHOD" displayName="METHOD" /> < statusCode code="completed" /> <effectiveTime value=& quot;369557785659" /> <value unit="" xsi:type=& quot;PQ" value="Bedside" /> <referenceRange> <observationRange> <text /> </ observationRange> </referenceRange> </observation&gt ; </component> <component> <observation moodCode ="EVN" classCode="OBS"> <templateId root=& quot;2.16.840.1.539095.10.20.22.4.2" /> <id nullFlavor=&quot ;NA" /> <code codeSystem="local" code="GLU& quot; displayName="GLUCOSE" /><statusCode code="completed& quot; /> <effectiveTime value="054145920441" /> <value unit="mg/dL" xsi:type="PQ" value="102& quot; /> <interpretationCode codeSystem="local" code=& quot;*" /> <referenceRange> < observationRange> <text>70-99</text> </ observationRange> </referenceRange> </observation&gt ; </component> <component> <observation moodCode=& quot;EVN" classCode="OBS"> <templateId root=" 2.16.840.1.522174.10.20.22.4.2" /> <id nullFlavor="NA&quot ; /> <code codeSystem="local" code="HGBT" displayName="HEMOGLOBIN" /> <statusCode code=" completed" /> <effectiveTime value="420491733728" /> <value unit="gm/dL" xsi:type="PQ" value=& quot;9.2" /> <interpretationCode codeSystem="local&quot ; code="*" /> <referenceRange> < observationRange> <text>14.0-18.0</text> </observationRange> </referenceRange> </ observation> </component> <component> < observation moodCode="EVN" classCode="OBS"> < templateId root="2.16.840.1.020351.10.20.22.4.2" /> < id nullFlavor="NA" /> <code codeSystem="local&quot ; code="HCTT" displayName="HEMATOCRIT" /> < statusCode code="completed" /> <effectiveTime value=& quot;906587128726" /> <value unit="%" xsi: type="PQ" value="27.0" /> < interpretationCode codeSystem="local"code="*" /> <referenceRange> <observationRange> <text> 40.0-54.0</text> </observationRange> </ referenceRange> </observation> </component> < component> <observation moodCode="EVN" classCode=" OBS"> <templateId root="2.16.840.1.210190.10.20.22.4.2& quot; /> <id nullFlavor="NA" /> <code codeSystem="local" code="NA" displayName="SODIUM" /> <statusCode code="completed" /> < effectiveTime value="715355155043" /> <value unit=&quot ;mmol/L" xsi:type="PQ" value="133" /> < interpretationCode codeSystem="local" code="*" /> <referenceRange> <observationRange> < text>135-148</text> </observationRange> </ referenceRange> </observation> </component> < component> <observation moodCode="EVN" classCode=" OBS"> <templateId root="2.16.840.1.276566.10.20.22.4.2& quot; /> <id nullFlavor="NA" /> <code codeSystem="local" code="CO2" displayName="CARBON DIOXIDE" /> <statusCode code="completed" /> <effectiveTime value="097932127848" /> < value unit="mmol/L" xsi:type="PQ" value="29" /&gt ; <referenceRange> <observationRange> <text>21-32</text> </observationRange> </referenceRange> </observation> </component> <component> <observation moodCode="EVN" classCode= "OBS"> <templateId root=" 2.16.840.1.562117.10.20.22.4.2" /> <id nullFlavor="NA& quot; /> <code codeSystem="local" code="CAION&quot ; displayName="CALCIUM IONIZED" /> <statusCode code=& quot;completed" /> <effectiveTime value="362342936018&quot ; /> <value unit="mg/dL" xsi:type="PQ" value= "4.5" /> <referenceRange> < observationRange> <text>4.5-5.3</text> & lt;/observationRange> </referenceRange> </ observation> </component> </organizer> </entry> & lt;entry> <organizer moodCode="EVN" classCode="BATTERY& quot;> <templateId root="2.16.840.1.896430.10.20.22.4.1" /& gt; <id nullFlavor="NA" /> <code codeSystem=" local" code="iCG8" displayName="SURGERY PROFILE BEDSIDE&quot ; /> <statusCode code="completed" /> <component& gt; <observation moodCode="EVN" classCode="OBS"&gt ; <templateId root="2.16.840.1.473319.10.20.22.4.2" /> <id nullFlavor="NA" /> <code codeSystem=& quot;local" code="K" displayName="POTASSIUM" /> <statusCode code="completed" /> < effectiveTime value="473345207065" /> <value unit=&quot ;mmol/L" xsi:type="PQ" value="3.7" /> < referenceRange> <observationRange> <text> 3.5-5.3</text> </observationRange> </ referenceRange> </observation> </component> < component> <observation moodCode="EVN" classCode=" OBS"> <templateId root="2.16.840.1.246019.10.20.22.4.2& quot; /> <id nullFlavor="NA" /> <code codeSystem="local" code="JAIME" displayName="ABG BASE EXCESS" /> <statusCode code="completed" /> <effectiveTime value="194262969482" /> <value unit="meq/L" xsi:type="PQ" value="1.0" /> <referenceRange> <observationRange> < text>-3.0-3.0</text> </observationRange> < /referenceRange> </observation> </component> &lt ;component> <observation moodCode="EVN" classCode=" OBS"> <templateId root="2.16.840.1.191071.10.20.22.4.2& quot; /> <id nullFlavor="NA" /> <code codeSystem="local" code="HCO3A" displayName="ABG BICARBONATE" /> <statusCode code="completed" /&gt ; <effectiveTime value="506975698272" /> < value unit="meq/L" xsi:type="PQ" value="27.0" /&gt ; <referenceRange> <observationRange> <text>23.0-28.0</text> </observationRange> </referenceRange> </observation> </component&gt ; <component> <observationmoodCode="EVN" classCode="OBS"> <templateId root=" 2.16.840.1.937123.10.20.22.4.2" /> <id nullFlavor="NA& quot; /> <code codeSystem="local" code="METHOD& quot; displayName="METHOD" /> <statusCode code=" completed" /> <effectiveTime value="391637025853"/ > <value unit="" xsi:type="PQ" value=" Bedside" /> <referenceRange> <observationRange > <text /> </observationRange> </ referenceRange> </observation> </component> < component> <observation moodCode="EVN" classCode=" OBS"> <templateId root="2.16.840.1.893290.10.20.22.4.2& quot; /><id nullFlavor="NA" /> <code codeSystem=& quot;local" code="PCO2A" displayName="ABG PCO2" /> <statusCode code="completed" /> < effectiveTime value="981318691182" /> <value unit=&quot ;mmHg" xsi:type="PQ" value="52" /> < interpretationCode codeSystem="local" code="*" /> <referenceRange> <observationRange> < text>34-45</text> </observationRange> </ referenceRange> </observation> </component> < component> <observation moodCode="EVN" classCode="OBS& quot;> <templateId root="2.16.840.1.098526.10..22.4.2&quot ; /> <id nullFlavor="NA" /> <code codeSystem="local" code="PHAX" displayName="ABG PH&quot ; /> <statusCode code="completed" /> < effectiveTime value="958367299513" /> <value unit=&quot ;" xsi:type="PQ" value="7.33" /> < interpretationCode codeSystem="local" code="*" /> & lt;referenceRange> <observationRange> <text& gt;7.35-7.45</text> </observationRange> </ referenceRange> </observation> </component> < component> <observation moodCode="EVN" classCode=" OBS"> <templateId root="2.16.840.1.576302.10.20.22.4.2& quot; /> <id nullFlavor="NA" /> <code codeSystem="local" code="PO2A" displayName="ABG PO2& quot; /> <statusCode code="completed" /> & lt;effectiveTime value="881508503081" /> <value unit=& quot;mmHg" xsi:type="PQ" value="545" /> &lt ;interpretationCode codeSystem="local" code="*" /> <referenceRange> <observationRange> <text> 75-100</text> </observationRange> </ referenceRange> </observation> </component> < component> <observation moodCode="EVN" classCode=" OBS"> <templateId root="2.16.840.1.225134.10.20.22.4.2" / > <id nullFlavor="NA" /> <code codeSystem="local" code="SATA" displayName="ABG O2 SATURATION" /> <statusCode code="completed" />& lt;effectiveTime value="964158642451" /> <value unit=& quot;%"xsi:type="PQ" value="100" /> <referenceRange> <observationRange> < text>93-100</text> </observationRange> </ referenceRange> </observation> </component> < component> <observation moodCode="EVN" classCode=" OBS"> <templateId root="2.16.840.1.025259.10.20.22.4.2& quot; /> <id nullFlavor="NA" /> <code codeSystem="local" code="CMETHOD" displayName="METHOD& quot; /> <statusCode code="completed" /> & lt;effectiveTimevalue="182690741188" /> <value unit=& quot;" xsi:type="PQ" value="Bedside" /> &lt ;referenceRange> <observationRange> <text /> </observationRange> </referenceRange></ observation> </component> <component> < observation moodCode="EVN" classCode="OBS"> < templateId root="2.16.840.1.701116.10.20.22.4.2" /> < id nullFlavor="NA" /> <code codeSystem="local&quot ; code="HMETHOD" displayName="METHOD" /> < statusCode code="completed" /> <effectiveTime value=& quot;710886163538" /> <value unit="" xsi:type="PQ " value="Bedside" /> <referenceRange> <observationRange> <text /> </ observationRange> </referenceRange> </observation&gt ; </component> <component> <observation moodCode ="EVN" classCode="OBS"> <templateId root=& quot;2.16.840.1.055623.10.20.22.4.2" /> <id nullFlavor=&quot ;NA" /> <code codeSystem="local" code="GLU& quot; displayName="GLUCOSE" /> <statusCode code=" completed" /><effectiveTime value="659205870054" /> <value unit="mg/dL" xsi:type="PQ" value="102& quot; /> <interpretationCode codeSystem="local" code=& quot;*" /> <referenceRange> < observationRange> <text>70-99</text> </ observationRange> </referenceRange> </observation&gt ; </component> <component> <observation moodCode ="EVN" classCode="OBS"> <templateId root=& quot;2.16.840.1.171899.10.20.22.4.2" /> <id nullFlavor=&quot ;NA" /> <code codeSystem="local" code="HGBT& quot; displayName="HEMOGLOBIN" /> <statusCode code=" completed" /> <effectiveTime value="479558079129" /> <value unit="gm/dL" xsi:type="PQ" value=& quot;9.2" /> <interpretationCode codeSystem="local&quot ; code="*" /> <referenceRange> < observationRange> <text>14.0-18.0</text> </observationRange> </referenceRange> </ observation> </component> <component> < observation moodCode="EVN" classCode="OBS"> < templateId root="2.16.840.1.505083.10.20.22.4.2" /> < id nullFlavor="NA" /> <code codeSystem="local&quot ; code="HCTT" displayName="HEMATOCRIT" /> < statusCode code="completed" /> <effectiveTime value=& quot;056529365448" /> <value unit="%" xsi: type="PQ" value="27.0" /> < interpretationCode codeSystem="local" code="*" /> <referenceRange> <observationRange> < text>40.0-54.0</text> </observationRange> &lt ;/referenceRange> </observation> </component> & lt;component> <observation moodCode="EVN" classCode=&quot ;OBS"> <templateId root="2.16.840.1.203116.10.20.22.4.2 " /> <id nullFlavor="NA" /> <code codeSystem="local" code="NA" displayName="SODIUM" /> <statusCode code="completed" /> < effectiveTime value="231552951247" /> <value unit=&quot ;mmol/L" xsi:type="PQ" value="133" /> < interpretationCode codeSystem="local" code="*" /> <referenceRange> <observationRange> <text >135-148</text> </observationRange> </ referenceRange> </observation> </component> < component> <observation moodCode="EVN" classCode=" OBS"> <templateId root="2.16.840.1.496788.10.20.22.4.2& quot; /> <id nullFlavor="NA" /> <code codeSystem="local" code="CO2" displayName="CARBON DIOXIDE" /> <statusCode code="completed" /> <effectiveTime value="449594649489" /> < value unit="mmol/L" xsi:type="PQ" value="29" /&gt ; <referenceRange> <observationRange> <text>21-32</text> </observationRange> </referenceRange> </observation> </component> < component> <observation moodCode="EVN" classCode=" OBS"> <templateId root="2.16.840.1.168529.10.20.22.4.2& quot; /> <id nullFlavor="NA" /> <code codeSystem="local" code="CAION" displayName="CALCIUM IONIZED" /> <statusCode code="completed" /> <effectiveTime value="220496677496" /> < value unit="mg/dL" xsi:type="PQ" value="4.5" /&gt ; <referenceRange> <observationRange> <text>4.5-5.3</text> </observationRange> & lt;/referenceRange> </observation> </component> & lt;/organizer> </entry> <entry> <organizer moodCode=&quot ;EVN" classCode="BATTERY"> <templateId root=" 2.16.840.1.235557.10.20.22.4.1" /> <id nullFlavor="NA&quot ; /> <code codeSystem="local" code="iCG8" displayName="SURGERY PROFILE BEDSIDE" /> <statusCode code=& quot;completed" /> <component> <observation moodCode="EVN" classCode="OBS"> <templateId root="2.16.840.1.174140.10.20.22.4.2" /> <id nullFlavor ="NA" /> <code codeSystem="local" code=" K" displayName="POTASSIUM" /> <statusCodecode=& quot;completed" /> <effectiveTime value="772531345007& quot; /> <value unit="mmol/L" xsi:type="PQ" value= "4.3" /> <referenceRange> < observationRange> <text>3.5-5.3</text> & lt;/observationRange> </referenceRange> </ observation> </component> <component> < observation moodCode="EVN" classCode="OBS"> < templateId root="2.16.840.1.044139.10.20.22.4.2" /> < id nullFlavor="NA" /> <code codeSystem="local&quot ; code="JAIME" displayName="ABG BASE EXCESS" /> & lt;statusCode code="completed" /> <effectiveTime value= "252898336899" /> <valueunit="meq/L" xsi:type ="PQ" value="-1.0" /> <referenceRange> <observationRange> <text>-3.0-3.0</text> </observationRange> </referenceRange> </ observation> </component> <component> < observation moodCode="EVN" classCode="OBS"> < templateId root="2.16.840.1.252841.10.20.22.4.2" /> < id nullFlavor="NA" /> <code codeSystem="local&quot ; code="HCO3A" displayName="ABG BICARBONATE" /> <statusCode code="completed"/> <effectiveTime value= "624342612737" /> <value unit="meq/L" xsi: type="PQ" value="24.0" /> <referenceRange&gt ; <observationRange> <text>23.0-28.0</text> </observationRange> </referenceRange> & lt;/observation> </component> <component> < observation moodCode="EVN" classCode="OBS"> < templateId root="2.16.840.1.281379.10.20.22.4.2" /> < id nullFlavor="NA" /> <code codeSystem="local&quot ; code="METHOD" displayName="METHOD" /> < statusCode code="completed" /> <effectiveTime value=& quot;119682578361" /> <value unit="" xsi:type=& quot;PQ" value="Bedside" /> <referenceRange> <observationRange> <text /> </ observationRange> </referenceRange> </observation&gt ; </component> <component> <observation moodCode ="EVN" classCode="OBS"> <templateId root=& quot;2.16.840.1.009960.10.20.22.4.2" /> <id nullFlavor=&quot ;NA" /> <code codeSystem="local" code="PCO2A& quot; displayName="ABG PCO2" /><statusCode code="completed& quot; /> <effectiveTime value="149792149240" /> <value unit="mmHg" xsi:type="PQ" value="39& quot; /> <referenceRange> <observationRange> <text>34-45</text> </observationRange&gt ; </referenceRange> </observation> </ component> <component> <observation moodCode="EVN& quot; classCode="OBS"> <templateId root=" 2.16.840.1.440174.10.20.22.4.2" /> <id nullFlavor="NA& quot; /> <code codeSystem="local" code="PHAX&quot ; displayName="ABG PH" /> <statusCode code=" completed" /> <effectiveTime value="975046450074" /> <value unit="" xsi:type="PQ" value=" 7.40" /> <referenceRange> <observationRange > <text>7.35-7.45</text> </ observationRange> </referenceRange> </observation&gt ; </component> <component> <observation moodCode ="EVN" classCode="OBS"> <templateId root=& quot;2.16.840.1.325998.10.20.22.4.2" /> <id nullFlavor=&quot ;NA" /> <code codeSystem="local" code="PO2A& quot; displayName="ABG PO2" /> <statusCode code=" completed" /> <effectiveTime value="773872430399" /> <value unit="mmHg" xsi:type="PQ" value=" 307" /> <interpretationCode codeSystem="local" code="*" /> <referenceRange> < observationRange> <text>75-100</text> &lt ;/observationRange> </referenceRange> </observation& gt; </component> <component> <observation moodCode="EVN" classCode="OBS"> <templateId root="2.16.840.1.923542.10..22.4.2" /> <id nullFlavor ="NA" /> <code codeSystem="local" code="SATA& quot; displayName="ABG O2 SATURATION" /> <statusCode code="completed" /> <effectiveTime value=" 534724635026" /> <value unit="%" xsi:type= "PQ" value="100" /> <referenceRange> <observationRange> <text>93-100</text> </observationRange> </referenceRange> </ observation> </component> <component> < observation moodCode="EVN" classCode="OBS"> < templateId root="2.16.840.1.691841.10..22.4.2" /> < id nullFlavor="NA" /> <code codeSystem="local&quot ; code="CMETHOD" displayName="METHOD" /><statusCode code="completed" /> <effectiveTime value=" 284020506087" /> <value unit="" xsi:type="PQ& quot; value="Bedside" /> <referenceRange> <observationRange> <text /> </ observationRange> </referenceRange> </observation&gt ;</component> <component> <observation moodCode=&quot ;EVN" classCode="OBS"> <templateId root=" 2.16.840.1.000924.10.20.22.4.2" /> <id nullFlavor="NA" /> <code codeSystem="local" code="HMETHOD" displayName="METHOD" /> <statusCode code=" completed" /> <effectiveTime value="691078782368" /> <value unit="" xsi:type="PQ" value=" Bedside" /> <referenceRange> <observationRange&gt ; <text /> </observationRange> </ referenceRange> </observation> </component> < component> <observation moodCode="EVN" classCode=" OBS"> <templateId root="2.16.840.1.275770.10..22.4.2& quot; /> <id nullFlavor="NA" /> <code codeSystem="local" code="GLU" displayName="GLUCOSE&quot ; /> <statusCode code="completed" /> < effectiveTime value="678514169119" /> <value unit=&quot ;mg/dL" xsi:type="PQ" value="171" /> < interpretationCode codeSystem="local" code="*" /> <referenceRange> <observationRange> < text>70-99</text> </observationRange> </ referenceRange> </observation> </component> < component> <observation moodCode="EVN" classCode=" OBS"> <templateId root="2.16.840.1.976298.10.20.22.4.2& quot; /> <id nullFlavor="NA" /> <code codeSystem="local" code="HGBT" displayName="HEMOGLOBIN& quot; /> <statusCode code="completed" /> & lt;effectiveTime value="387918538651" /> <value unit="gm/dL " xsi:type="PQ" value="6.8" /> < interpretationCode codeSystem="local" code="*" /> <referenceRange> <observationRange> < text>14.0-18.0</text> </observationRange> &lt ;/referenceRange> </observation> </component> & lt;component> <observation moodCode="EVN" classCode=&quot ;OBS"> <templateId root="2.16.840.1.776938.10.20.22.4.2 " /> <id nullFlavor="NA" /> <code codeSystem="local" code="HCTT" displayName="HEMATOCRIT& quot; /> <statusCode code="completed" /> < effectiveTime value="526591418680" /> <value unit=&quot ;%" xsi:type="PQ" value="20.0" /> & lt;interpretationCode codeSystem="local" code="*" /> <referenceRange> <observationRange> & lt;text>40.0-54.0</text> </observationRange> </ referenceRange> </observation> </component> < component> <observation moodCode="EVN" classCode=" OBS"> <templateId root="2.16.840.1.164405.10..22.4.2& quot; /> <id nullFlavor="NA" /> <code codeSystem="local" code="NA" displayName="SODIUM"/ > <statusCode code="completed" /> < effectiveTime value="750284301622" /> <value unit=&quot ;mmol/L" xsi:type="PQ" value="132" /> < interpretationCode codeSystem="local" code="*" /> <referenceRange> <observationRange> < text>135-148</text> </observationRange> </ referenceRange> </observation> </component> < component> <observation moodCode="EVN" classCode=" OBS"> <templateId root="2.16.840.1.311702.10.20.22.4.2& quot; /> <id nullFlavor="NA" /> <code codeSystem="local" code="CO2" displayName="CARBON DIOXIDE" /> <statusCode code="completed" /> <effectiveTime value="434428602277" /> <value unit= "mmol/L" xsi:type="PQ" value="25" /> & lt;referenceRange> <observationRange> <text& gt;21-32</text> </observationRange> </ referenceRange> </observation> </component> < component> <observation moodCode="EVN" classCode=" OBS"> <templateId root="2.16.840.1.703112.10.20.22.4.2& quot; /> <id nullFlavor="NA" /> <code codeSystem="local" code="CAION" displayName="CALCIUM IONIZED" /> <statusCode code="completed" /> <effectiveTime value="470440279014" /> < value unit="mg/dL" xsi:type="PQ" value="3.4" /&gt ; <interpretationCode codeSystem="local" code="*&quot ; /> <referenceRange><observationRange> &lt ;text>4.5-5.3</text> </observationRange> < /referenceRange> </observation> </component> </ organizer> </entry> <entry> <organizer moodCode="EVN " classCode="BATTERY"> <templateId root=" 2.16.840.1.455902.10.20.22.4.1" /> <id nullFlavor="NA&quot ; /> <code codeSystem="local" code="iCG8" displayName="SURGERY PROFILE BEDSIDE" /> <statusCode code=& quot;completed"/> <component> <observation moodCode ="EVN" classCode="OBS"> <templateId root=& quot;2.16.840.1.276124.10.20.22.4.2" /> <id nullFlavor=&quot ;NA" /> <code codeSystem="local" code="K&quot ; displayName="POTASSIUM" /> <statusCode code=" completed" /> <effectiveTime value="260613337037" /> <value unit="mmol/L" xsi:type="PQ" value="4.3 " /> <referenceRange> <observationRange&gt ; <text>3.5-5.3</text> </observationRange > </referenceRange> </observation> </ component> <component> <observation moodCode="EVN& quot; classCode="OBS"> <templateId root=" 2.16.840.1.623194.10.20.22.4.2" /> <id nullFlavor="NA& quot; /> <code codeSystem="local" code="JAIME" displayName="ABG BASE EXCESS" /> <statusCode code=&quot ;completed" /> <effectiveTime value="596909579977&quot ; /> <value unit="meq/L" xsi:type="PQ" value= "-1.0" /> <referenceRange> < observationRange> <text>-3.0-3.0</text> & lt;/observationRange> </referenceRange> </ observation> </component> <component> < observation moodCode="EVN" classCode="OBS"> < templateId root="2.16.840.1.461383.10.20.22.4.2" /> < id nullFlavor="NA" /> <code codeSystem="local" code= "HCO3A" displayName="ABG BICARBONATE" /> < statusCode code="completed" /> <effectiveTime value=& quot;089860687713" /> <value unit="meq/L" xsi:type ="PQ" value="24.0" /> <referenceRange> <observationRange> <text>23.0-28.0</text> </observationRange> </referenceRange> </ observation> </component> <component> < observation moodCode="EVN" classCode="OBS"> < templateId root="2.16.840.1.511366.10.20.22.4.2" /> < id nullFlavor="NA" /> <code codeSystem="local&quot ; code="METHOD" displayName="METHOD" /> < statusCode code="completed" /> <effectiveTime value=& quot;975247030403" /> <value unit="" xsi:type=& quot;PQ" value="Bedside" /> <referenceRange> <observationRange> <text /> </ observationRange> </referenceRange> </observation&gt ; </component> <component> <observation moodCode ="EVN" classCode="OBS"> <templateId root=& quot;2.16.840.1.489297.10.20.22.4.2" /> <id nullFlavor="NA& quot; /> <code codeSystem="local" code="PCO2A&quot ; displayName="ABG PCO2" /> <statusCode code=" completed" /> <effectiveTime value="088982024843" /> <value unit="mmHg" xsi:type="PQ" value=& quot;39" /> <referenceRange> <observationRange> <text>34-45</text> </observationRange&gt ; </referenceRange> </observation> </ component> <component> <observation moodCode="EVN& quot; classCode="OBS"> <templateId root=" 2.16.840.1.235697.10.20.22.4.2" /> <id nullFlavor="NA& quot; /> <code codeSystem="local" code="PHAX&quot ; displayName="ABG PH" /> <statusCode code=" completed" /> <effectiveTime value="078812649640" /> <value unit="" xsi:type="PQ" value=" 7.40" /> <referenceRange> <observationRange > <text>7.35-7.45</text> </ observationRange> </referenceRange> </observation&gt ; </component> <component> <observation moodCode ="EVN" classCode="OBS"> <templateId root=& quot;2.16.840.1.569716.10.20.22.4.2" /> <id nullFlavor=&quot ;NA" /> <code codeSystem="local" code="PO2A" displayName="ABG PO2" /> <statusCode code="completed& quot; /> <effectiveTime value="466530439091" /> <value unit="mmHg" xsi:type="PQ" value="307& quot; /> <interpretationCode codeSystem="local" code=& quot;*" /> <referenceRange> <observationRange&gt ; <text>75-100</text> </observationRange& gt; </referenceRange> </observation> </ component> <component> <observation moodCode="EVN& quot; classCode="OBS"> <templateId root=" 2.16.840.1.353718.10.20.22.4.2" /> <id nullFlavor="NA& quot; /> <code codeSystem="local" code="SATA&quot ; displayName="ABG O2 SATURATION" /> <statusCode code=& quot;completed" /> <effectiveTime value="074564293783& quot; /> <value unit="%" xsi:type="PQ&quot ; value="100" /> <referenceRange> < observationRange> <text>93-100</text> </ observationRange> </referenceRange> </observation&gt ; </component> <component> <observation moodCode ="EVN" classCode="OBS"> <templateId root=& quot;2.16.840.1.171321.10.20.22.4.2" /> <id nullFlavor="NA& quot; /> <code codeSystem="local" code="CMETHOD& quot; displayName="METHOD" /> <statusCode code=" completed" /> <effectiveTime value="236411640824" /> <value unit="" xsi:type="PQ" value=" Bedside" /> <referenceRange> <observationRange&gt ; <text /> </observationRange> </ referenceRange> </observation> </component> < component> <observation moodCode="EVN" classCode=" OBS"> <templateId root="2.16.840.1.613188.10..22.4.2& quot; /> <id nullFlavor="NA" /> <code codeSystem="local" code="HMETHOD" displayName="METHOD& quot; /> <statusCode code="completed" /> & lt;effectiveTime value="089074866705" /> <value unit=& quot;" xsi:type="PQ" value="Bedside" /> &lt ;referenceRange> <observationRange> <text /> </observationRange> </referenceRange> </ observation> </component> <component> < observation moodCode="EVN" classCode="OBS"> < templateId root="2.16.840.1.481195.10.20.22.4.2" /> < id nullFlavor="NA" /> <code codeSystem="local&quot ; code="GLU" displayName="GLUCOSE" /> < statusCode code="completed" /> <effectiveTime value=& quot;047270211681" /> <value unit="mg/dL" xsi:type ="PQ" value="171" /> <interpretationCode codeSystem="local" code="*" /> < referenceRange> <observationRange> <text>70- 99</text> </observationRange> </ referenceRange> </observation> </component> < component> <observation moodCode="EVN" classCode=" OBS"> <templateId root="2.16.840.1.603125.10.20.22.4.2& quot; /> <id nullFlavor="NA" /> <code codeSystem="local" code="HGBT" displayName="HEMOGLOBIN& quot; /> <statusCode code="completed" /> & lt;effectiveTime value="360577108778" /> <value unit=& quot;gm/dL" xsi:type="PQ" value="6.8" /> & lt;interpretationCode codeSystem="local" code="*" /> <referenceRange> <observationRange> < text>14.0-18.0</text> </observationRange> &lt ;/referenceRange> </observation> </component> & lt;component> <observation moodCode="EVN" classCode=&quot ;OBS"> <templateId root="2.16.840.1.713229.10..22.4.2 " /> <id nullFlavor="NA" /> <code codeSystem="local" code="HCTT" displayName="HEMATOCRIT& quot; /> <statusCode code="completed" /> < effectiveTime value="208573582988" /> <value unit=&quot ;%" xsi:type="PQ" value="20.0" /> & lt;interpretationCode codeSystem="local" code="*" /> <referenceRange> <observationRange> & lt;text>40.0-54.0</text> </observationRange> </referenceRange> </observation> </component> <component> <observation moodCode="EVN" classCode=& quot;OBS"> <templateId root=" 2.16.840.1.031323.10.20.22.4.2" /> <id nullFlavor="NA& quot; /> <code codeSystem="local" code="NA" displayName="SODIUM" /> <statusCode code=" completed" /> <effectiveTime value="346129590855" /> <value unit="mmol/L" xsi:type="PQ" value=& quot;132" /> <interpretationCode codeSystem="local&quot ; code="*" /> <referenceRange> < observationRange> <text>135-148</text> & lt;/observationRange> </referenceRange> </ observation> </component> <component> < observation moodCode="EVN" classCode="OBS"> < templateId root="2.16.840.1.134917.10.20.22.4.2" /> < id nullFlavor="NA" /> <code codeSystem="local&quot ; code="CO2" displayName="CARBON DIOXIDE" /> &lt ;statusCode code="completed" /><effectiveTime value=" 831758473260" /> <value unit="mmol/L" xsi:type=& quot;PQ" value="25" /> <referenceRange> <observationRange> <text>21-32</text> </observationRange> </referenceRange> </ observation> </component> <component> < observation moodCode="EVN" classCode="OBS"> < templateId root="2.16.840.1.680449.10.20.22.4.2" /> < id nullFlavor="NA" /> <code codeSystem="local&quot ; code="CAION" displayName="CALCIUM IONIZED" /> <statusCode code="completed" /> <effectiveTime value ="607710697959" /> <value unit="mg/dL" xsi: type="PQ" value="3.4" /> <interpretationCode codeSystem="local" code="*" /> < referenceRange> <observationRange> <text> 4.5-5.3</text> </observationRange> </ referenceRange> </observation> </component> </ organizer> </entry> <entry> <organizer moodCode="EVN " classCode="BATTERY"> <templateId root=" 2.16.840.1.371794.10.20.22.4.1" /> <id nullFlavor="NA&quot ; /><code codeSystem="local" code="iCG8" displayName=& quot;SURGERY PROFILE BEDSIDE" /> <statusCode code=" completed" /> <component> <observation moodCode=& quot;EVN" classCode="OBS"> <templateId root=" 2.16.840.1.131581.10.20.22.4.2" /> <id nullFlavor="NA& quot; /> <code codeSystem="local" code="K" displayName="POTASSIUM" /> <statusCode code="completed& quot; /> <effectiveTime value="782421574370" /> <value unit="mmol/L" xsi:type="PQ" value="3.7& quot; /> <referenceRange> <observationRange> <text>3.5-5.3</text> </observationRange& gt; </referenceRange> </observation> </ component> <component> <observation moodCode="EVN& quot; classCode="OBS"> <templateId root=" 2.16.840.1.164782.10.20.22.4.2" /> <id nullFlavor="NA& quot; /> <code codeSystem="local" code="JAIME" displayName="ABG BASE EXCESS" /> <statusCode code=&quot ;completed" /> <effectiveTime value="073963282417&quot ; /> <value unit="meq/L" xsi:type="PQ" value=& quot;-1.0" /> <referenceRange> <observationRange& gt; <text>-3.0-3.0</text> </ observationRange> </referenceRange> </observation&gt ; </component> <component> <observation moodCode ="EVN" classCode="OBS"> <templateId root=& quot;2.16.840.1.842334.10.20.22.4.2"/> <id nullFlavor=" NA" /> <code codeSystem="local"code="HCO3A& quot; displayName="ABG BICARBONATE" /> <statusCode code ="completed" /> <effectiveTime value="800027671772 " /> <value unit="meq/L" xsi:type="PQ" value="24.7" /> <referenceRange> < observationRange> <text>23.0-28.0</text> < /observationRange> </referenceRange> </observation& gt; </component> <component> <observation moodCode="EVN" classCode="OBS"> <templateId root="2.16.840.1.916895.10.20.22.4.2" /> <id nullFlavor=&quot ;NA" /> <code codeSystem="local" code="METHOD " displayName="METHOD" /> <statusCode code=" completed"/> <effectiveTime value="836665774427" / > <value unit="" xsi:type="PQ" value=" Bedside" /> <referenceRange> <observationRange> <text /> </observationRange> </ referenceRange> </observation> </component> < component> <observation moodCode="EVN" classCode="OBS "> <templateId root="2.16.840.1.246781.10.20.22.4.2& quot; /> <id nullFlavor="NA" /> <code codeSystem="local" code="PCO2A" displayName="ABG PCO2& quot; /> <statusCode code="completed" /> & lt;effectiveTime value="178626939914" /> <value unit=& quot;mmHg" xsi:type="PQ" value="44" /> < referenceRange> <observationRange> <text>34-45</ text> </observationRange> </referenceRange> </observation> </component> <component> <observation moodCode="EVN" classCode="OBS"> <templateId root="2.16.840.1.997441.10.20.22.4.2" /> <id nullFlavor="NA" /> <code codeSystem=" local" code="PHAX" displayName="ABG PH" /> <statusCode code="completed" /> <effectiveTime value ="411550882875" /> <value unit="" xsi:type=& quot;PQ" value="7.36" /><referenceRange> < observationRange> <text>7.35-7.45</text> </observationRange> </referenceRange> </ observation> </component> <component> < observation moodCode="EVN" classCode="OBS"> < templateId root="2.16.840.1.641139.10.20.22.4.2" /> < id nullFlavor="NA" /> <code codeSystem="local&quot ; code="PO2A" displayName="ABG PO2" /> < statusCode code="completed" /> <effectiveTime value=& quot;762524848128" /> <value unit="mmHg" xsi:type= "PQ" value="273" /> <interpretationCode codeSystem="local" code="*" /> < referenceRange> <observationRange> <text> 75-100</text> </observationRange> </ referenceRange> </observation> </component> < component> <observation moodCode="EVN" classCode=" OBS"> <templateId root="2.16.840.1.398086.10.20.22.4.2& quot; /> <id nullFlavor="NA" /> <code codeSystem="local" code="SATA" displayName="ABG O2 SATURATION" /> <statusCode code="completed" /> <effectiveTime value="252582752787" /> < value unit="%" xsi:type="PQ" value="100" / > <referenceRange> <observationRange> <text>93-100</text> </observationRange> &lt ;/referenceRange> </observation> </component> & lt;component> <observation moodCode="EVN" classCode=" OBS"> <templateId root="2.16.840.1.922919.10.20.22.4.2& quot; /> <id nullFlavor="NA" /> <code codeSystem="local" code="CMETHOD" displayName="METHOD& quot; /> <statusCode code="completed" /> & lt;effectiveTime value="072234559215" /> <value unit=& quot;" xsi:type="PQ" value="Bedside" /> &lt ;referenceRange> <observationRange> <text /> </observationRange> </referenceRange> </ observation> </component> <component> < observation moodCode="EVN" classCode="OBS"> < templateId root="2.16.840.1.596173.10.20.22.4.2" /> < id nullFlavor="NA" /> <code codeSystem="local&quot ; code="HMETHOD" displayName="METHOD" /> < statusCode code="completed" /> <effectiveTime value=& quot;604145470530" /> <value unit="" xsi:type=& quot;PQ" value="Bedside" /> <referenceRange> <observationRange> <text /> </ observationRange> </referenceRange> </observation&gt ; </component> <component> <observation moodCode=& quot;EVN" classCode="OBS"> <templateId root=" 2.16.840.1.881019.10.20.22.4.2" /> <id nullFlavor="NA& quot; /> <code codeSystem="local" code="GLU" displayName="GLUCOSE" /> <statusCode code=" completed" /> <effectiveTime value="315026820891" /> <value unit="mg/dL" xsi:type="PQ" value=& quot;122" /> <interpretationCode codeSystem="local&quot ; code="*" /> <referenceRange> < observationRange> <text>70-99</text> </ observationRange> </referenceRange> </observation&gt ; </component> <component> <observation moodCode ="EVN" classCode="OBS"> <templateId root=& quot;2.16.840.1.627567.10.20.22.4.2" /> <id nullFlavor=&quot ;NA" /> <codecodeSystem="local" code="HGBT& quot; displayName="HEMOGLOBIN" /><statusCode code=" completed" /> <effectiveTime value="738803734690" /> <value unit="gm/dL" xsi:type="PQ" value=& quot;7.1" /> <interpretationCode codeSystem="local&quot ; code="*" /> <referenceRange> < observationRange> <text>14.0-18.0</text> </observationRange> </referenceRange> </ observation> </component> <component> < observation moodCode="EVN" classCode="OBS"> < templateId root="2.16.840.1.587033.10.20.22.4.2" /> < id nullFlavor="NA" /> <code codeSystem="local&quot ; code="HCTT" displayName="HEMATOCRIT" /> < statusCode code="completed" /> <effectiveTime value=& quot;090120431482" /> <value unit="%" xsi: type="PQ" value="21.0" /> < interpretationCode codeSystem="local" code="*" /> <referenceRange> <observationRange> <text> 40.0-54.0</text> </observationRange> </ referenceRange> </observation> </component> < component> <observation moodCode="EVN" classCode=" OBS"> <templateId root="2.16.840.1.007705.10.20.22.4.2&quot ; /> <id nullFlavor="NA" /> <code codeSystem="local" code="NA" displayName="SODIUM" /> <statusCode code="completed" /> < effectiveTime value="026967391469" /> <value unit=&quot ;mmol/L" xsi:type="PQ" value="133" /> < interpretationCode codeSystem="local" code="*" /> <referenceRange> <observationRange> <text>135 -148</text> </observationRange> </ referenceRange> </observation> </component> < component> <observation moodCode="EVN" classCode=" OBS"> <templateId root="2.16.840.1.153502.10.20.22.4.2& quot; /> <id nullFlavor="NA" /> < codecodeSystem="local" code="CO2" displayName="CARBON DIOXIDE" /> <statusCode code="completed" /> & lt;effectiveTime value="505174633591" /> <value unit=& quot;mmol/L" xsi:type="PQ" value="26" /> & lt;referenceRange> <observationRange> <text& gt;21-32</text> </observationRange> </ referenceRange> </observation> </component> < component> <observation moodCode="EVN" classCode=" OBS"> <templateId root="2.16.840.1.675095.10.20.22.4.2& quot; /> <id nullFlavor="NA" /> <code codeSystem="local" code="CAION" displayName="CALCIUM IONIZED" /> <statusCode code="completed" /> <effectiveTime value="170589653255" /> <value unit="mg/dL" xsi:type="PQ" value="4.0" />< interpretationCode codeSystem="local" code="*" /> <referenceRange> <observationRange> < text>4.5-5.3</text></observationRange> </ referenceRange> </observation> </component> </ organizer> </entry> <entry> <organizer moodCode="EVN " classCode="BATTERY"> <templateId root=" 2.16.840.1.275872.10.20.22.4.1" /> <id nullFlavor="NA&quot ; /> <code codeSystem="local" code="iCG8" displayName="SURGERY PROFILE BEDSIDE" /> <statusCode code=& quot;completed" /> <component> <observation moodCode="EVN" classCode="OBS"> <templateId root="2.16.840.1.303895.10.20.22.4.2" /> <id nullFlavor ="NA" /> <code codeSystem="local" code=" K" displayName="POTASSIUM" /> <statusCode code=& quot;completed" /> <effectiveTime value="080636790030& quot; /> <value unit="mmol/L" xsi:type="PQ" value="3.7" /> <referenceRange> < observationRange> <text>3.5-5.3</text> & lt;/observationRange> </referenceRange> </ observation> </component> <component> < observation moodCode="EVN" classCode="OBS"> < templateId root="2.16.840.1.087221.10.20.22.4.2" /> < id nullFlavor="NA" /> <code codeSystem="local&quot ; code="JAIME" displayName="ABG BASE EXCESS" /> & lt;statusCode code="completed" /> <effectiveTime value=&quot ;176423445062" /> <value unit="meq/L" xsi:type=& quot;PQ" value="-1.0" /> <referenceRange> <observationRange> <text>-3.0-3.0</text> </observationRange> </referenceRange> &lt ;/observation> </component> <component> < observation moodCode="EVN" classCode="OBS"> < templateId root="2.16.840.1.193843.10.20.22.4.2" /> < id nullFlavor="NA" /> <code codeSystem="local&quot ; code="HCO3A" displayName="ABG BICARBONATE" /> <statusCode code="completed" /> <effectiveTime value ="449942681600" /> <value unit="meq/L" xsi: type="PQ" value="24.7" /> <referenceRange&gt ; <observationRange> <text>23.0-28.0</ text> </observationRange> </referenceRange> & lt;/observation> </component> <component> < observation moodCode="EVN" classCode="OBS"> < templateId root="2.16.840.1.923905.10.20.22.4.2" /> < id nullFlavor="NA" /> <code codeSystem="local&quot ; code="METHOD" displayName="METHOD" /> < statusCode code="completed" /> <effectiveTime value=& quot;847454242157" /> <value unit="" xsi:type=& quot;PQ" value="Bedside" /> <referenceRange> <observationRange> <text /> </ observationRange> </referenceRange> </observation&gt ; </component> <component> <observation moodCode ="EVN" classCode="OBS"> <templateId root=& quot;2.16.840.1.072736.10.20.22.4.2" /> <id nullFlavor=&quot ;NA" /> <code codeSystem="local" code="PCO2A& quot; displayName="ABG PCO2" /> <statusCode code=" completed" /> <effectiveTime value="396690934355" /> <value unit="mmHg" xsi:type="PQ" value=& quot;44" /> <referenceRange> < observationRange> <text>34-45</text> </ observationRange> </referenceRange> </observation&gt ; </component> <component> <observation moodCode ="EVN" classCode="OBS"> <templateId root=& quot;2.16.840.1.687509.10..22.4.2" /> <id nullFlavor=&quot ;NA" /> <code codeSystem="local" code="PHAX& quot; displayName="ABG PH" /> <statusCode code=" completed" /> <effectiveTime value="174239577451" /& gt; <value unit="" xsi:type="PQ" value=" 7.36" /> <referenceRange> <observationRange > <text>7.35-7.45</text> </ observationRange> </referenceRange> </observation&gt ; </component> <component> <observation moodCode ="EVN" classCode="OBS"> <templateId root=& quot;2.16.840.1.870418.10.20.22.4.2" /> <id nullFlavor=&quot ;NA" /> <code codeSystem="local" code="PO2A& quot; displayName="ABG PO2" /> <statusCode code=" completed" /> <effectiveTimevalue="528866158051" / > <value unit="mmHg" xsi:type="PQ" value=& quot;273" /> <interpretationCode codeSystem="local&quot ; code="*" /> <referenceRange> < observationRange> <text>75-100</text> &lt ;/observationRange> </referenceRange> </observation> </component> <component> <observation moodCode=& quot;EVN" classCode="OBS"> <templateId root=" 2.16.840.1.065635.10.20.22.4.2" /> <id nullFlavor="NA& quot; /> <code codeSystem="local" code="SATA&quot ; displayName="ABG O2 SATURATION" /> <statusCode code=& quot;completed" /> <effectiveTime value="565982042983& quot; /> <value unit="%" xsi:type="PQ&quot ; value="100" /> <referenceRange> < observationRange> <text>93-100</text> &lt ;/observationRange> </referenceRange> </observation& gt; </component> <component> <observation moodCode="EVN" classCode="OBS"> <templateId root="2.16.840.1.243923.10.20.22.4.2" /> <id nullFlavor ="NA" /> <code codeSystem="local" code=" CMETHOD" displayName="METHOD" /> <statusCode code= "completed" /> <effectiveTime value="209638523004& quot; /> <value unit="" xsi:type="PQ" value=& quot;Bedside" /> <referenceRange> < observationRange> <text /> </ observationRange> </referenceRange> </observation&gt ; </component> <component> <observation moodCode=& quot;EVN" classCode="OBS"> <templateId root=" 2.16.840.1.286405.10.20.22.4.2" /> <id nullFlavor="NA& quot; /> <code codeSystem="local" code="HMETHOD& quot; displayName="METHOD" /> <statusCode code=" completed" /> <effectiveTime value="247892357200" /> <value unit="" xsi:type="PQ" value=" Bedside" /> <referenceRange> < observationRange> <text /> </ observationRange> </referenceRange> </observation&gt ; </component> <component> <observation moodCode ="EVN" classCode="OBS"> <templateId root=& quot;2..840.1.708732.10.20.22.4.2" /> <id nullFlavor=&quot ;NA" /> <codecodeSystem="local" code="GLU& quot; displayName="GLUCOSE" /> <statusCode code=" completed" /> <effectiveTime value="370303819606" /> <value unit="mg/dL" xsi:type="PQ" value=& quot;122" /> <interpretationCode codeSystem="local&quot ; code="*" /> <referenceRange> < observationRange> <text>70-99</text> </ observationRange> </referenceRange> </observation&gt ; </component> <component> <observation moodCode ="EVN" classCode="OBS"> <templateId root=& quot;2.16.840.1.593652.10.20.22.4.2" /> <id nullFlavor="NA& quot; /> <code codeSystem="local" code="HGBT&quot ; displayName="HEMOGLOBIN" /> <statusCode code=" completed" /> <effectiveTime value="714392224287" /> <value unit="gm/dL" xsi:type="PQ" value=& quot;7.1" /> <interpretationCode codeSystem="local&quot ; code="*" /> <referenceRange> < observationRange> <text>14.0-18.0</text> </observationRange> </referenceRange> </ observation> </component> <component> < observation moodCode="EVN" classCode="OBS"> < templateId root="2.16.840.1.585450.10.20.22.4.2" /> < id nullFlavor="NA" /> <code codeSystem="local&quot ; code="HCTT" displayName="HEMATOCRIT" /> < statusCode code="completed" /> <effectiveTime value=& quot;086495254905" /> <value unit="%" xsi: type="PQ" value="21.0" /> < interpretationCode codeSystem="local" code="*" /> <referenceRange> <observationRange> <text>40.0- 54.0</text> </observationRange> </ referenceRange> </observation> </component> < component> <observation moodCode="EVN" classCode=" OBS"> <templateId root="2.16.840.1.132590.10.20.22.4.2& quot; /> <id nullFlavor="NA" /> <code codeSystem="local" code="NA" displayName="SODIUM" /> <statusCode code="completed" /> < effectiveTime value="278427062519" /> <value unit=&quot ;mmol/L" xsi:type="PQ" value="133" /> < interpretationCode codeSystem="local" code="*" /> <referenceRange> <observationRange> < text>135-148</text> </observationRange> </ referenceRange> </observation> </component> < component> <observation moodCode="EVN" classCode=" OBS"> <templateId root="2.16.840.1.380343.10.20.22.4.2& quot; /> <id nullFlavor="NA" /> <code codeSystem="local" code="CO2" displayName="CARBON DIOXIDE" /> <statusCode code="completed" /> <effectiveTime value="515906292450" /> < value unit="mmol/L" xsi:type="PQ" value="26" /&gt ; <referenceRange> <observationRange> <text>21-32</text> </observationRange> &lt ;/referenceRange> </observation> </component> < component> <observation moodCode="EVN" classCode=" OBS"> <templateId root="2.16.840.1.557071.10.20.22.4.2& quot; /> <id nullFlavor="NA" /> <code codeSystem="local" code="CAION" displayName="CALCIUM IONIZED" /> <statusCode code="completed" /> & lt;effectiveTime value="663812525273" /> <value unit=& quot;mg/dL" xsi:type="PQ" value="4.0" /> & lt;interpretationCode codeSystem="local" code="*" /> <referenceRange> <observationRange> & lt;text>4.5-5.3</text> </observationRange> & lt;/referenceRange> </observation> </component> & lt;/organizer> </entry> <entry> <organizer moodCode=&quot ;EVN" classCode="BATTERY"> <templateId root=" 2.16.840.1.667879.10.20.22.4.1" /> <id nullFlavor="NA&quot ; /> <code codeSystem="local" code="iCG8" displayName="SURGERY PROFILE BEDSIDE" /> <statusCode code=& quot;completed" /> <component> <observation moodCode="EVN" classCode="OBS"> <templateId root="2.16.840.1.235575.10.20.22.4.2" /> <id nullFlavor ="NA" /> <code codeSystem="local" code=" K" displayName="POTASSIUM" /> <statusCode code=& quot;completed" /> <effectiveTime value="299544987556& quot; /> <value unit="mmol/L" xsi:type="PQ" value="3.7" /> <referenceRange> < observationRange> <text>3.5-5.3</text> </ observationRange> </referenceRange> </observation&gt ; </component> <component> <observation moodCode ="EVN" classCode="OBS"> <templateId root=& quot;2.16.840.1.770181.10.20.22.4.2" /> <id nullFlavor=&quot ;NA" /> <code codeSystem="local" code="JAIME& quot; displayName="ABG BASE EXCESS" /> <statusCode code=& quot;completed" /> <effectiveTime value="077859900861& quot; /> <value unit="meq/L" xsi:type="PQ" value="1.0" /> <referenceRange> < observationRange> <text>-3.0-3.0</text> & lt;/observationRange> </referenceRange> </observation> </component> <component> <observation moodCode= "EVN" classCode="OBS"> <templateId root=&quot ;2.16.840.1.787505.10.20.22.4.2" /> <id nullFlavor="NA& quot; /> <code codeSystem="local" code="HCO3A&quot ; displayName="ABG BICARBONATE" /> <statusCode code=& quot;completed" /> <effectiveTime value="427202224355& quot;/> <value unit="meq/L" xsi:type="PQ" value="24.8" /> <referenceRange> < observationRange> <text>23.0-28.0</text> </observationRange> </referenceRange> </ observation> </component> <component> < observation moodCode="EVN" classCode="OBS"> < templateId root="2.16.840.1.407254.10.20.22.4.2" /> < id nullFlavor="NA" /> <code codeSystem="local&quot ; code="METHOD" displayName="METHOD" /> < statusCode code="completed" /> <effectiveTime value=& quot;541247328005" /> <value unit="" xsi:type=& quot;PQ" value="Bedside" /> <referenceRange> <observationRange> <text /> </ observationRange> </referenceRange> </observation&gt ; </component><component> <observation moodCode=&quot ;EVN" classCode="OBS"> <templateId root=" 2.16.840.1.487399.10..22.4.2" /> <id nullFlavor="NA& quot; /> <code codeSystem="local" code="PCO2A&quot ; displayName="ABG PCO2" /> <statusCode code=" completed" /> <effectiveTime value="448877520519" /> <value unit="mmHg" xsi:type="PQ" value=& quot;37" /> <referenceRange> < observationRange> <text>34-45</text> < /observationRange> </referenceRange> </observation& gt; </component> <component><observation moodCode=&quot ;EVN" classCode="OBS"> <templateId root=" 2.16.840.1.563402.10.20.22.4.2" /> <id nullFlavor="NA& quot; /> <code codeSystem="local" code="PHAX" displayName="ABG PH" /> <statusCode code="completed " /> <effectiveTime value="468886558482" /> <value unit="" xsi:type="PQ" value="7.44&quot ; /> <referenceRange> <observationRange> <text>7.35-7.45</text> </observationRange&gt ; </referenceRange></observation> </component> <component> <observation moodCode="EVN" classCode ="OBS"> <templateId root=" 2.16.840.1.657634.10.20.22.4.2" /> <id nullFlavor="NA& quot; /> <code codeSystem="local" code="PO2A&quot ; displayName="ABG PO2" /> <statusCode code=" completed" /> <effectiveTime value="377963029181" /> <value unit="mmHg" xsi:type="PQ" value="261 " /> <interpretationCode codeSystem="local" code=& quot;*" /> <referenceRange> < observationRange> <text>75-100</text> &lt ;/observationRange> </referenceRange> </observation& gt; </component> <component> <observation moodCode="EVN" classCode="OBS"> <templateId root="2.16.840.1.795019.10.20.22.4.2" /> <id nullFlavor ="NA" /> <code codeSystem="local" code=" SATA" displayName="ABG O2 SATURATION" /> < statusCode code="completed" /> <effectiveTime value=& quot;885624531431" /> <value unit="%" xsi: type="PQ" value="100" /> <referenceRange> <observationRange> <text>93-100</text> </observationRange> </referenceRange> </ observation> </component><component> <observation moodCode="EVN" classCode="OBS"> <templateId root=& quot;2.16.840.1.905833.10.20.22.4.2" /> <id nullFlavor=&quot ;NA" /> <code codeSystem="local" code=" CMETHOD" displayName="METHOD" /> <statusCode code= "completed" /> <effectiveTime value="195876259582& quot; /> <value unit="" xsi:type="PQ" value=& quot;Bedside" /> <referenceRange> < observationRange> <text /> </ observationRange> </referenceRange> </observation&gt ; </component> <component> <observation moodCode ="EVN" classCode="OBS"> <templateId root=& quot;2.16.840.1.703547.10.20.22.4.2" /> <id nullFlavor=&quot ;NA" /> <code codeSystem="local" code=" HMETHOD" displayName="METHOD" /> <statusCode code= "completed" /> <effectiveTime value="509435577366& quot; /> <value unit="" xsi:type="PQ" value=& quot;Bedside" /> <referenceRange> < observationRange> <text /> </observationRange> </referenceRange> </observation> </ component> <component> <observation moodCode="EVN& quot; classCode="OBS"> <templateId root=" 2.16.840.1.942922.10.20.22.4.2" /> <id nullFlavor="NA" /& gt; <code codeSystem="local" code="GLU" displayName="GLUCOSE" /> <statusCode code=" completed" /> <effectiveTime value="070558742728" /> <value unit="mg/dL" xsi:type="PQ" value=& quot;78" /> <referenceRange><observationRange> <text>70-99</text> </observationRange> </referenceRange> </observation> </component& gt; <component> <observation moodCode="EVN" classCode="OBS"> <templateId root=" 2.16.840.1.829690.10.20.22.4.2" /> <id nullFlavor="NA& quot; /> <code codeSystem="local" code="HGBT&quot ; displayName="HEMOGLOBIN" /> <statusCode code=" completed" /> <effectiveTime value="212869232144" /> <value unit="gm/dL" xsi:type="PQ" value=& quot;7.1" /> <interpretationCode codeSystem="local&quot ; code="*" /> <referenceRange> < observationRange> <text>14.0-18.0</text> </ observationRange> </referenceRange> </observation&gt ; </component> <component> <observation moodCode ="EVN" classCode="OBS"> <templateId root=& quot;2.16.840.1.839038.10.20.22.4.2" /> <id nullFlavor=&quot ;NA" /> <code codeSystem="local" code="HCTT& quot; displayName="HEMATOCRIT" /> <statusCode code=& quot;completed" /> <effectiveTime value="262853185380& quot; /> <value unit="%" xsi:type="PQ&quot ; value="21.0" /> <interpretationCode codeSystem=" local" code="*" /> <referenceRange> < observationRange> <text>40.0-54.0</text> </observationRange> </referenceRange> </ observation> </component> <component> < observation moodCode="EVN" classCode="OBS"> < templateId root="2.16.840.1.783482.10.20.22.4.2"/> <id nullFlavor="NA" /> <code codeSystem="local" code="NA" displayName="SODIUM" /> < statusCode code="completed" /> <effectiveTime value=& quot;367306092146" /> <value unit="mmol/L" xsi: type="PQ" value="134" /> <interpretationCode codeSystem="local" code="*" /> < referenceRange> <observationRange> <text> 135-148</text> </observationRange> </ referenceRange> </observation> </component> < component> <observation moodCode="EVN" classCode=" OBS"> <templateId root="2.16.840.1.364178.10.20.22.4.2& quot; /> <id nullFlavor="NA" /> <code codeSystem="local" code="CO2" displayName="CARBON DIOXIDE" /> <statusCode code="completed" /> <effectiveTime value="708180538980" /> < value unit="mmol/L" xsi:type="PQ" value="26" /&gt ; <referenceRange> <observationRange> <text>21-32</text> </observationRange> </referenceRange> </observation> </component> <component><observation moodCode="EVN" classCode=" OBS"> <templateId root="2.16.840.1.133115.10.20.22.4.2& quot; /> <id nullFlavor="NA" /> <code codeSystem="local" code="CAION" displayName="CALCIUM IONIZED" /> <statusCode code="completed" /> <effectiveTime value="874725202334" /> < value unit="mg/dL" xsi:type="PQ" value="4.1" /&gt ; <interpretationCode codeSystem="local" code="*&quot ; /> <referenceRange> <observationRange> <text>4.5-5.3</text> </observationRange> </referenceRange> </observation> </ component> </organizer> </entry> <entry> < organizer moodCode="EVN" classCode="BATTERY"> < templateId root="2.16.840.1.011069.10.20.22.4.1" /> <id nullFlavor="NA" /> <codecodeSystem="local" code=& quot;iCG8" displayName="SURGERY PROFILE BEDSIDE" /> < statusCode code="completed" /> <component> < observation moodCode="EVN" classCode="OBS"> < templateId root="2.16.840.1.723383.10.20.22.4.2" /> < id nullFlavor="NA" /> <code codeSystem="local&quot ; code="K" displayName="POTASSIUM" /> < statusCode code="completed" /> <effectiveTime value=& quot;379712546233"/> <value unit="mmol/L" xsi:type ="PQ" value="3.7" /> <referenceRange> <observationRange> <text>3.5-5.3</text> </observationRange> </referenceRange> < /observation> </component> <component> < observation moodCode="EVN" classCode="OBS"> < templateId root="2.16.840.1.345862.10.20.22.4.2" /> < id nullFlavor="NA" /> <code codeSystem="local&quot ; code="JAIME" displayName="ABG BASE EXCESS" /> & lt;statusCode code="completed" /> <effectiveTime value= "644393101960" /><value unit="meq/L" xsi:type="PQ " value="1.0" /> <referenceRange> & lt;observationRange> <text>-3.0-3.0</text> & lt;/observationRange> </referenceRange> </ observation></component> <component> <observation moodCode="EVN" classCode="OBS"> <templateId root="2.16.840.1.248665.10.20.22.4.2" /> <id nullFlavor=& quot;NA" /> <code codeSystem="local" code=" HCO3A" displayName="ABG BICARBONATE" /> < statusCode code="completed" /> <effectiveTime value=& quot;313205073385" /> <value unit="meq/L" xsi:type ="PQ" value="24.8" /> <referenceRange> <observationRange> <text>23.0-28.0</text&gt ; </observationRange> </referenceRange> & lt;/observation> </component> <component> < observation moodCode="EVN" classCode="OBS"> < templateId root="2.16.840.1.581173.10.20.22.4.2" /> < id nullFlavor="NA" /> <code codeSystem="local&quot ; code="METHOD" displayName="METHOD" /> < statusCode code="completed" /> <effectiveTime value=" 671161280117" /> <value unit="" xsi:type="PQ& quot; value="Bedside" /> <referenceRange> <observationRange> <text /> </ observationRange> </referenceRange> </observation&gt ; </component> <component> <observation moodCode ="EVN" classCode="OBS"> <templateId root=& quot;2.16.840.1.868431.10.20.22.4.2" /> <id nullFlavor=&quot ;NA" /> <code codeSystem="local" code="PCO2A" displayName="ABG PCO2" /> <statusCode code=" completed" /> <effectiveTime value="977329294563" /> <value unit="mmHg" xsi:type="PQ" value=& quot;37" /> <referenceRange> < observationRange> <text>34-45</text> < /observationRange> </referenceRange> </observation& gt; </component> <component> <observation moodCode="EVN" classCode="OBS"> <templateId root="2.16.840.1.693489.10.20.22.4.2" /> <id nullFlavor ="NA" /> <code codeSystem="local" code=" PHAX" displayName="ABG PH" /> <statusCode code=& quot;completed" /> <effectiveTime value="544155102424& quot; /> <value unit="" xsi:type="PQ" value="7.44 " /> <referenceRange> <observationRange&gt ; <text>7.35-7.45</text> </observationRange&gt ; </referenceRange> </observation> </ component> <component> <observation moodCode="EVN& quot; classCode="OBS"> <templateId root=" 2.16.840.1.035638.10..22.4.2" /> <id nullFlavor="NA" /& gt; <code codeSystem="local" code="PO2A" displayName="ABG PO2" /> <statusCode code=" completed" /> <effectiveTime value="447427584489" /> <value unit="mmHg" xsi:type="PQ" value=& quot;261" /> <interpretationCode codeSystem="local&quot ; code="*" /> <referenceRange> < observationRange> <text>75-100</text> &lt ;/observationRange> </referenceRange> </observation> </component> <component> <observation moodCode=&quot ;EVN" classCode="OBS"> <templateId root=" 2.16.840.1.363520.10..22.4.2" /> <id nullFlavor="NA& quot; /> <code codeSystem="local" code="SATA&quot ; displayName="ABG O2 SATURATION" /> <statusCode code=& quot;completed" /> <effectiveTime value="471261083365& quot; /> <value unit="%" xsi:type="PQ&quot ; value="100" /> <referenceRange> < observationRange> <text>93-100</text> &lt ;/observationRange> </referenceRange> </observation& gt; </component> <component> <observation moodCode="EVN" classCode="OBS"> <templateId root="2.16.840.1.369491.10.20.22.4.2" /> <id nullFlavor ="NA" /> <code codeSystem="local" code="CMETHOD& quot; displayName="METHOD" /> <statusCode code=" completed" /> <effectiveTime value="713426220755" /> <value unit="" xsi:type="PQ" value=" Bedside" /> <referenceRange> < observationRange> <text /> </ observationRange> </referenceRange> </observation&gt ; </component> <component> <observation moodCode ="EVN" classCode="OBS"> <templateId root=& quot;2.16.840.1.932305.10.20.22.4.2" /> <id nullFlavor=&quot ;NA" /> <code codeSystem="local" code=" HMETHOD" displayName="METHOD" /> <statusCode code= "completed" /> <effectiveTime value="306420635239& quot; /> <value unit="" xsi:type="PQ" value=& quot;Bedside" /> <referenceRange> < observationRange> <text /> </ observationRange> </referenceRange> </observation&gt ; </component> <component> <observation moodCode ="EVN" classCode="OBS"> <templateId root=& quot;2.16.840.1.859325.10.20.22.4.2" /> <id nullFlavor=&quot ;NA" /> <code codeSystem="local" code="GLU& quot; displayName="GLUCOSE" /> <statusCode code=" completed" /> <effectiveTime value="549647211400" /> <value unit="mg/dL" xsi:type="PQ" value=& quot;78" /> <referenceRange> < observationRange> <text>70-99</text> </ observationRange> </referenceRange> </observation&gt ; </component> <component> <observation moodCode ="EVN" classCode="OBS"> <templateId root=& quot;2.16.840.1.818090.10.20.22.4.2" /> <id nullFlavor=&quot ;NA" /> <code codeSystem="local" code="HGBT& quot; displayName="HEMOGLOBIN" /> <statusCode code=" completed" /> <effectiveTime value="295065029346" /> <value unit="gm/dL" xsi:type="PQ" value=& quot;7.1" /> <interpretationCode codeSystem="local&quot ; code="*" /> <referenceRange> < observationRange> <text>14.0-18.0</text> </observationRange> </referenceRange> </ observation> </component> <component> < observation moodCode="EVN" classCode="OBS"> < templateId root="2.16.840.1.174351.10.20.22.4.2"/> <id nullFlavor="NA" /> <code codeSystem="local" code="HCTT" displayName="HEMATOCRIT" /> < statusCode code="completed" /> <effectiveTime value=& quot;654323805133" /> <value unit="%" xsi: type="PQ" value="21.0" /> < interpretationCode codeSystem="local" code="*" /> <referenceRange> <observationRange> <text& gt;40.0-54.0</text> </observationRange> </ referenceRange> </observation> </component> < component> <observation moodCode="EVN" classCode=" OBS"> <templateId root="2.16.840.1.812411.10.20.22.4.2& quot; /> <id nullFlavor="NA" /> <code codeSystem="local" code="NA" displayName="SODIUM" /> <statusCode code="completed" /> < effectiveTime value="180474893546" /> <value unit=&quot ;mmol/L" xsi:type="PQ" value="134" /> < interpretationCode codeSystem="local" code="*" /> <referenceRange> <observationRange> <text&gt ;135-148</text> </observationRange> </ referenceRange> </observation> </component> < component> <observation moodCode="EVN" classCode=" OBS"> <templateId root="2.16.840.1.674230.10.20.22.4.2& quot; /> <id nullFlavor="NA" /> <code codeSystem="local" code="CO2" displayName="CARBON DIOXIDE" /> <statusCode code="completed" /> <effectiveTime value="781596914362" /> <value unit="mmol/L" xsi:type="PQ" value="26" /> <referenceRange> <observationRange> &lt ;text>21-32</text> </observationRange> </ referenceRange> </observation> </component> < component> <observation moodCode="EVN" classCode=" OBS"> <templateId root="2.16.840.1.063659.10.20.22.4.2& quot; /> <id nullFlavor="NA" /> <code codeSystem="local" code="CAION" displayName="CALCIUM IONIZED" /> <statusCode code="completed" /> <effectiveTime value="835342377229" /> < value unit="mg/dL" xsi:type="PQ" value="4.1" /&gt ; <interpretationCode codeSystem="local" code="*" /&gt ; <referenceRange> <observationRange> <text>4.5-5.3</text> </observationRange> </ referenceRange> </observation> </component> </ organizer> </entry> <entry> <organizer moodCode="EVN " classCode="BATTERY"> <templateId root=" 2.16.840.1.277585.10.20.22.4.1" /> <id nullFlavor="NA&quot ; /> <code codeSystem="local" code="HH" displayName="HGB HCT" /> <statusCode code="completed " /> <component> <observation moodCode="EVN& quot; classCode="OBS"> <templateId root=" 2.16.840.1.142744.10.20.22.4.2" /> <id nullFlavor="NA& quot; /> <code codeSystem="local" code="MCV" displayName="MEAN CELL VOLUME" /> <statusCode code=& quot;completed" /> <effectiveTime value="890849758448& quot; /> <value unit="fl" xsi:type="PQ" value ="95.4" /> <referenceRange> <observationRange > <text>80.0-100.0</text> </ observationRange> </referenceRange> </observation&gt ; </component> <component> <observation moodCode=& quot;EVN" classCode="OBS"> <templateId root=" 2.16.840.1.656573.10.20.22.4.2" /> <id nullFlavor="NA& quot; /> <code codeSystem="local" code="HGBT&quot ; displayName="HEMOGLOBIN" /> <statusCode code=" completed" /> <effectiveTime value="795508245840" /> <value unit="gm/dL" xsi:type="PQ" value=& quot;8.5" /> <interpretationCode codeSystem="local&quot ; code="*" /> <referenceRange> < observationRange> <text>14.0-18.0</text> &lt ;/observationRange> </referenceRange> </observation& gt; </component> <component> <observation moodCode="EVN" classCode="OBS"> <templateId root="2.16.840.1.697260.10.20.22.4.2" /> <id nullFlavor ="NA" /><code codeSystem="local" code="HCTT&quot ; displayName="HEMATOCRIT" /> <statusCode code=" completed" /> <effectiveTime value="156205623975" /> <value unit="%" xsi:type="PQ" value="25.1" /> <interpretationCode codeSystem=" local" code="*" /> <referenceRange> <observationRange> <text>40.0-54.0</text> </observationRange> </referenceRange> </ observation> </component> </organizer> </entry> & lt;entry> <organizer moodCode="EVN" classCode="BATTERY& quot;> <templateId root="2.16.840.1.830130.10.20.22.4.1" /& gt; <id nullFlavor="NA" /> <code codeSystem=" local" code="PLT" displayName="PLATELET COUNT" /> <statusCode code="completed" /> <component> <observation moodCode="EVN" classCode="OBS"> <templateId root="2.16.840.1.580602.10.20.22.4.2" /> <id nullFlavor="NA" /> <code codeSystem=" local" code="PLT" displayName="PLATELET COUNT" /> <statusCode code="completed" /> < effectiveTime value="409233329941" /> <value unit=" k/cumm" xsi:type="PQ" value="104" /> < interpretationCode codeSystem="local" code="*" /> <referenceRange> <observationRange> < text>150-450</text> </observationRange> </ referenceRange> </observation> </component> </ organizer> </entry> <entry> <organizer moodCode="EVN " classCode="BATTERY"> <templateId root=" 2.16.840.1.425917.10.20.22.4.1" /> <id nullFlavor="NA&quot ; /> <code codeSystem="local"code="PT" displayName="PROTHROMBIN TIME WITH INR" /> <statusCode code ="completed" /> <component> <observation moodCode="EVN" classCode="OBS"> <templateId root="2.16.840.1.050918.10.20.22.4.2" /> <id nullFlavor ="NA" /> <code codeSystem="local" code=" INRX" displayName="INTERNATIONAL NORMAL RATIO" /> &lt ;statusCode code="completed" /> <effectiveTime value=& quot;941243806832" /> <value unit="" xsi:type="PQ " value="2.0" /> <interpretationCode codeSystem=& quot;local" code="*" /> <referenceRange> <observationRange> <text>0.9-1.1</text> </observationRange> </referenceRange> </ observation> </component> <component> < observation moodCode="EVN" classCode="OBS"> < templateId root="2.16.840.1.375186.10.20.22.4.2" /> < id nullFlavor="NA" /> <code codeSystem="local&quot ; code="PTPAT" displayName="PROTHROMBIN TIME" /> <statusCode code="completed" /> <effectiveTime value="059811958427" /> <value unit="sec" xsi :type="PQ" value="21.1" /> < interpretationCode codeSystem="local" code="*" /> <referenceRange> <observationRange> < text>9.3-12.2</text> </observationRange> </ referenceRange> </observation> </component> </ organizer> </entry> <entry> <organizer moodCode="EVN " classCode="BATTERY"> <templateId root=" 2.16.840.1.588590.10.20.22.4.1" /> <id nullFlavor="NA&quot ; /> <code codeSystem="local" code="FIB" displayName="FIBRINOGEN" /> <statusCode code=" completed" /> <component> <observation moodCode=& quot;EVN" classCode="OBS"> <templateId root=" 2.16.840.1.396674.10.20.22.4.2" /> <id nullFlavor="NA& quot; /> <code codeSystem="local" code="FIB" displayName="FIBRINOGEN" /> <statusCode code=" completed" /> <effectiveTime value="462835818641" /> <value unit="mg/dL" xsi:type="PQ" value=& quot;165" /> <interpretationCode codeSystem="local&quot ; code="*" /> <referenceRange> < observationRange> <text>200-400</text> & lt;/observationRange> </referenceRange> </ observation> </component> </organizer> </entry> & lt;entry> <organizer moodCode="EVN" classCode="BATTERY& quot;> <templateId root="2.16.840.1.586693.10.20.22.4.1" /& gt; <id nullFlavor="NA" /> <codecodeSystem=" local" code="HH" displayName="HGB HCT" /> &lt ;statusCode code="completed" /> <component> < observation moodCode="EVN" classCode="OBS"> < templateId root="2.16.840.1.118199.10.20.22.4.2" /> < id nullFlavor="NA" /> <code codeSystem="local&quot ; code="MCV" displayName="MEAN CELL VOLUME" /> & lt;statusCode code="completed" /> <effectiveTime value= "479944057350" /> <value unit="fl" xsi:type=& quot;PQ" value="95.4" /> <referenceRange> <observationRange> <text>80.0-100.0</text&gt ; </observationRange> </referenceRange> & lt;/observation> </component> <component> < observation moodCode="EVN" classCode="OBS"> < templateId root="2.16.840.1.326273.10.20.22.4.2" /> < id nullFlavor="NA" /> <code codeSystem="local&quot ; code="HGBT" displayName="HEMOGLOBIN" /> < statusCode code="completed" /> <effectiveTime value=& quot;294822361436" /> <value unit="gm/dL" xsi:type ="PQ" value="8.5" /> <interpretationCode codeSystem="local" code="*" /> < referenceRange> <observationRange> <text>14.0-18.0& lt;/text> </observationRange> </referenceRange& gt; </observation> </component> <component> <observation moodCode="EVN" classCode="OBS"> <templateId root="2.16.840.1.874882.10.20.22.4.2" /> & lt;id nullFlavor="NA" /> <code codeSystem="local& quot; code="HCTT" displayName="HEMATOCRIT" /> & lt;statusCode code="completed" /> <effectiveTime value= "524266838444" /> <value unit="%" xsi :type="PQ" value="25.1" /> < interpretationCode codeSystem="local" code="*" /> <referenceRange> <observationRange> <text >40.0-54.0</text> </observationRange> </ referenceRange> </observation> </component> </ organizer> </entry> <entry> <organizer moodCode="EVN " classCode="BATTERY"> <templateId root=" [id number]" /> <id nullFlavor="NA&quot ; /> <code codeSystem="local" code="PLT" displayName="PLATELET COUNT" /> <statusCode code=" completed" /> <component> <observation moodCode="EVN& quot; classCode="OBS"> <templateId root=" 2.16.840.1.650058.10.20.22.4.2" /> <id nullFlavor="NA& quot; /> <code codeSystem="local" code="PLT" displayName="PLATELET COUNT" /> <statusCode code=" completed" /> <effectiveTime value="664719312828" /> <value unit="k/cumm" xsi:type="PQ" value=& quot;104" /> <interpretationCode codeSystem="local&quot ; code="*" /> <referenceRange> < observationRange> <text>150-450</text> & lt;/observationRange> </referenceRange> </ observation> </component> </organizer> </entry> & lt;entry> <organizer moodCode="EVN" classCode="BATTERY& quot;> <templateId root="2.16.840.1.742643.10.20.22.4.1" /& gt; <id nullFlavor="NA" /> <code codeSystem=" local" code="PT" displayName="PROTHROMBIN TIME WITH INR&quot ; /> <statusCode code="completed" /> <component& gt; <observation moodCode="EVN" classCode="OBS"&gt ; <templateId root="2.16.840.1.451181.10.20.22.4.2" /> <id nullFlavor="NA" /> <code codeSystem=& quot;local" code="INRX" displayName="INTERNATIONAL NORMAL RATIO" /> <statusCode code="completed" /> <effectiveTime value="963093857856" /> <value unit="" xsi:type="PQ" value="2.0" /> & lt;interpretationCode codeSystem="local" code="*" /> <referenceRange> <observationRange> < text>0.9-1.1</text> </observationRange> </ referenceRange> </observation> </component> < component> <observation moodCode="EVN" classCode=" OBS"> <templateId root="2.16.840.1.844394.10.20.22.4.2& quot; /> <id nullFlavor="NA" /> <code codeSystem="local" code="PTPAT" displayName=" PROTHROMBIN TIME" /> <statusCode code="completed" /> <effectiveTime value="599408897317" /> <value unit="sec" xsi:type="PQ" value="21.1" /> <interpretationCode codeSystem="local" code="*" /&gt ; <referenceRange> <observationRange> <text>9.3-12.2</text> </observationRange> </referenceRange> </observation> </component&gt ; </organizer> </entry> <entry> <organizer moodCode ="EVN" classCode="BATTERY"> <templateId root=& quot;2.16.840.1.090977.10.20.22.4.1" /> <id nullFlavor="NA& quot; /> <code codeSystem="local" code="FIB" displayName="FIBRINOGEN" /> <statusCode code=" completed" /> <component> <observation moodCode=& quot;EVN" classCode="OBS"> <templateId root=" 2.16.840.1.460843.10.20.22.4.2" /> <id nullFlavor="NA& quot; /> <code codeSystem="local" code="FIB" displayName="FIBRINOGEN" /> <statusCode code=" completed" /> <effectiveTime value="612903666124" /> <value unit="mg/dL" xsi:type="PQ" value=" 165" /> <interpretationCode codeSystem="local" code="*" /> <referenceRange> < observationRange> <text>200-400</text> & lt;/observationRange> </referenceRange> </ observation> </component> </organizer> </entry> & lt;entry> <organizer moodCode="EVN" classCode="BATTERY& quot;> <templateId root="2.16.840.1.155334.10.20.22.4.1" /> <id nullFlavor="NA" /> <code codeSystem=" local" code="iCG8" displayName="SURGERY PROFILE BEDSIDE&quot ; /> <statusCode code="completed" /> <component& gt; <observation moodCode="EVN" classCode="OBS"&gt ; <templateId root="2.16.840.1.914475.10.20.22.4.2" /> <id nullFlavor="NA" /> <code codeSystem=& quot;local" code="K" displayName="POTASSIUM" /> <statusCode code="completed" /> < effectiveTime value="601199723968" /> <value unit=&quot ;mmol/L" xsi:type="PQ"value="3.4" /> < interpretationCode codeSystem="local" code="*" /> <referenceRange> <observationRange> < text>3.5-5.3</text> </observationRange> </ referenceRange> </observation> </component> < component> <observation moodCode="EVN" classCode=" OBS"> <templateId root="2.16.840.1.755825.10.20.22.4.2& quot; /> <id nullFlavor="NA" /> <code codeSystem="local" code="JAIME" displayName="ABG BASE EXCESS" /> <statusCode code="completed" /> <effectiveTime value="104383912857" /> <value unit="meq/L" xsi:type="PQ" value="1.0" /> <referenceRange> <observationRange> <text >-3.0-3.0</text> </observationRange> </ referenceRange> </observation> </component> < component> <observation moodCode="EVN" classCode=" OBS"> <templateId root="2.16.840.1.149948.10.20.22.4.2& quot; /> <id nullFlavor="NA" /> <code codeSystem="local" code="HCO3A" displayName="ABG BICARBONATE" /> <statusCode code="completed" /&gt ; <effectiveTime value="780962557216" /><value unit= "meq/L" xsi:type="PQ" value="25.3" /> <referenceRange> <observationRange> <text >23.0-28.0</text> </observationRange> </ referenceRange> </observation> </component> < component> <observation moodCode="EVN" classCode=" OBS"> <templateId root="2.16.840.1.731649.10.20.22.4.2& quot; /> <id nullFlavor="NA" /> <code codeSystem="local" code="METHOD" displayName="METHOD& quot; /> <statusCode code="completed" /> & lt;effectiveTime value="927001000968" /> <value unit=& quot;" xsi:type="PQ" value="Bedside" /> &lt ;referenceRange> <observationRange> <text /> </observationRange> </referenceRange> </ observation> </component> <component> < observation moodCode="EVN" classCode="OBS"> < templateId root="2.16.840.1.602760.10..22.4.2" /> < id nullFlavor="NA" /> <code codeSystem="local&quot ; code="PCO2A" displayName="ABG PCO2" /> < statusCode code="completed" /> <effectiveTime value=& quot;652966103557" /> <value unit="mmHg" xsi:type= "PQ" value="38" /> <referenceRange> <observationRange> <text>34-45</text> < /observationRange> </referenceRange> </observation& gt; </component> <component> <observation moodCode="EVN" classCode="OBS"> <templateId root="2.16.840.1.422216.10.20.22.4.2" /> <id nullFlavor ="NA" /> <code codeSystem="local" code=" PHAX" displayName="ABG PH" /> <statusCode code=& quot;completed" /> <effectiveTime value="565743697815& quot; /> <value unit="" xsi:type="PQ" value=& quot;7.44" /> <referenceRange> <observationRange& gt; <text>7.35-7.45</text> </ observationRange> </referenceRange> </observation&gt ; </component> <component> <observation moodCode ="EVN"classCode="OBS"> <templateId root=&quot ;2.16.840.1.644435.10.20.22.4.2" /> <id nullFlavor="NA& quot; /> <code codeSystem="local" code="PO2A&quot ; displayName="ABG PO2" /> <statusCode code=" completed" /> <effectiveTime value="642858085568" /> <value unit="mmHg" xsi:type="PQ" value=& quot;325" /> <interpretationCode codeSystem="local&quot ; code="*" /> <referenceRange><observationRange& gt; <text>75-100</text> </ observationRange> </referenceRange> </observation&gt ; </component> <component> <observation moodCode ="EVN" classCode="OBS"> <templateId root=& quot;2.16.840.1.273819.10.20.22.4.2" /> <id nullFlavor=&quot ;NA" /> <code codeSystem="local" code="SATA& quot; displayName="ABG O2 SATURATION" /> <statusCode code="completed" /> <effectiveTime value=" 808790136651" /> <value unit="%" xsi:type= "PQ" value="100" /> <referenceRange> <observationRange> <text>93-100</text> </observationRange> </referenceRange> </ observation> </component> <component> < observation moodCode="EVN" classCode="OBS"> < templateId root="2.16.840.1.284046.10.20.22.4.2" /> < id nullFlavor="NA" /> <code codeSystem="local&quot ; code="CMETHOD" displayName="METHOD" /> < statusCode code="completed" /> <effectiveTime value=& quot;673745049580" /> <value unit="" xsi:type=& quot;PQ" value="Bedside" /> <referenceRange> <observationRange> <text /> </ observationRange> </referenceRange> </observation&gt ; </component> <component> <observation moodCode ="EVN" classCode="OBS"> <templateId root=& quot;2.16.840.1.591223.10.20.22.4.2" /> <id nullFlavor=&quot ;NA" /> <code codeSystem="local" code=" HMETHOD" displayName="METHOD" /> <statusCode code= "completed" /> <effectiveTime value="863470596802& quot; /> <value unit="" xsi:type="PQ" value=" Bedside" /> <referenceRange> < observationRange> <text /> </ observationRange> </referenceRange> </observation&gt ; </component> <component> <observation moodCode ="EVN" classCode="OBS"> <templateId root=& quot;2.16.840.1.762671.10.20.22.4.2" /> <id nullFlavor=&quot ;NA" /> <code codeSystem="local" code="GLU& quot; displayName="GLUCOSE" /> <statusCode code=" completed" /> <effectiveTime value="630911465348" /> <value unit="mg/dL" xsi:type="PQ" value=& quot;49" /> <interpretationCode codeSystem="local&quot ; code="" /> <referenceRange> < observationRange> <text>70-99</text> </ observationRange> </referenceRange> </observation&gt ; </component> <component> <observation moodCode ="EVN" classCode="OBS"> <templateId root=& quot;2.16.840.1.887120.10.20.22.4.2" /> <id nullFlavor=&quot ;NA" /> <code codeSystem="local" code="HGBT& quot; displayName="HEMOGLOBIN" /> <statusCode code=" completed" /> <effectiveTime value="898480299392" /> <value unit="gm/dL" xsi:type="PQ" value=& quot;7.8" /> <interpretationCode codeSystem="local&quot ; code="*" /> <referenceRange> < observationRange> <text>14.0-18.0</text> </observationRange> </referenceRange> </ observation> </component> <component> < observation moodCode="EVN" classCode="OBS"> < templateId root="2.16.840.1.122696.10.20.22.4.2" /> < id nullFlavor="NA" /> <code codeSystem="local&quot ; code="HCTT" displayName="HEMATOCRIT" /> < statusCode code="completed" /> <effectiveTime value=& quot;238712276590" /> <valueunit="%" xsi: type="PQ" value="23.0" /> < interpretationCode codeSystem="local" code="*" /> <referenceRange> <observationRange> <text& gt;40.0-54.0</text> </observationRange> </ referenceRange> </observation> </component> < component> <observation moodCode="EVN" classCode=" OBS"> <templateId root="2.16.840.1.936544.10..22.4.2& quot; /> <id nullFlavor="NA" /> <code codeSystem="local" code="NA" displayName="SODIUM" /> <statusCode code="completed" /> < effectiveTime value="092404248880" /> <value unit=&quot ;mmol/L" xsi:type="PQ" value="135" /> < referenceRange> <observationRange> <text> 135-148</text> </observationRange></referenceRange&gt ; </observation> </component> <component> <observation moodCode="EVN" classCode="OBS"> <templateId root="2.16.840.1.291655.10..22.4.2" /> <id nullFlavor="NA" /> <code codeSystem="local " code="CO2" displayName="CARBON DIOXIDE" /> <statusCode code="completed" /> <effectiveTime value="564975129038" /> <value unit="mmol/L" xsi:type="PQ" value="26" /> <referenceRange& gt; <observationRange> <text>21-32</text> </observationRange> </referenceRange> </ observation> </component> <component> < observation moodCode="EVN" classCode="OBS"> < templateId root="2.16.840.1.319160.10.20.22.4.2" /> < id nullFlavor="NA" /> <code codeSystem="local&quot ; code="CAION" displayName="CALCIUM IONIZED" /> < statusCode code="completed" /> <effectiveTime value=& quot;114763346616" /> <value unit="mg/dL" xsi:type ="PQ" value="5.0" /> <referenceRange> <observationRange> <text>4.5-5.3</text> </observationRange> </referenceRange> &lt ;/observation> </component> </organizer> </entry> <entry> <organizer moodCode="EVN" classCode=" BATTERY"> <templateId root="2.16.840.1.188797.10.20.22.4.1& quot; /> <id nullFlavor="NA" /> <code codeSystem ="local" code="iCG8" displayName="SURGERY PROFILE BEDSIDE" /> <statusCode code="completed" /> & lt;component> <observation moodCode="EVN" classCode=&quot ;OBS"> <templateId root="2.16.840.1.479220.10.20.22.4.2 " /> <id nullFlavor="NA" /> < codecodeSystem="local" code="K" displayName="POTASSIUM& quot; /> <statusCode code="completed" /> & lt;effectiveTime value="548281185196" /> <value unit=& quot;mmol/L" xsi:type="PQ" value="3.4" /> & lt;interpretationCode codeSystem="local" code="*" /> <referenceRange> <observationRange> & lt;text>3.5-5.3</text> </observationRange> < /referenceRange> </observation> </component> < component> <observation moodCode="EVN" classCode=" OBS"> <templateId root="2.16.840.1.986312.10.20.22.4.2& quot; /> <id nullFlavor="NA" /> <code codeSystem="local" code="JAIME" displayName="ABG BASE EXCESS" /> <statusCode code="completed" /> <effectiveTime value="726027150876" /> <value unit="meq/L" xsi:type="PQ" value="1.0" /> <referenceRange> <observationRange> &lt ;text>-3.0-3.0</text> </observationRange> &lt ;/referenceRange> </observation> </component> & lt;component> <observation moodCode="EVN" classCode=&quot ;OBS"> <templateId root="2.16.840.1.391642.10.20.22.4.2 " /> <id nullFlavor="NA" /> <code codeSystem="local" code="HCO3A" displayName="ABG BICARBONATE" /> <statusCode code="completed" /&gt ; <effectiveTime value="510758513952" /> < value unit="meq/L" xsi:type="PQ" value="25.3" /&gt ; <referenceRange> <observationRange> <text >23.0-28.0</text> </observationRange> </ referenceRange> </observation> </component> < component> <observation moodCode="EVN" classCode=" OBS"> <templateId root="2.16.840.1.910771.10.20.22.4.2" / > <id nullFlavor="NA" /> <code codeSystem="local" code="METHOD" displayName="METHOD& quot; /> <statusCode code="completed" /> & lt;effectiveTime value="562129299523" /> <value unit=& quot;" xsi:type="PQ" value="Bedside" /> &lt ;referenceRange> <observationRange> <text /& gt; </observationRange> </referenceRange> </observation> </component> <component> &lt ;observation moodCode="EVN" classCode="OBS"> &lt ;templateId root="2.16.840.1.554374.10.20.22.4.2" /> < id nullFlavor="NA" /> <code codeSystem="local&quot ; code="PCO2A" displayName="ABG PCO2" /> < statusCode code="completed" /> <effectiveTime value=& quot;113812940798"/> <value unit="mmHg" xsi:type=& quot;PQ" value="38" /> <referenceRange> <observationRange> <text>34-45</text> </observationRange> </referenceRange> </ observation> </component> <component> < observation moodCode="EVN" classCode="OBS"> < templateId root="2.16.840.1.829062.10.20.22.4.2"/> <id nullFlavor="NA" /> <code codeSystem="local" code="PHAX" displayName="ABG PH" /> < statusCode code="completed" /> <effectiveTime value=& quot;827468586257" /> <value unit="" xsi:type=& quot;PQ" value="7.44" /> <referenceRange> <observationRange> <text>7.35-7.45</text> </observationRange> </referenceRange> < /observation> </component> <component> < observation moodCode="EVN" classCode="OBS"> < templateId root="2.16.840.1.126112.10..22.4.2" /> < id nullFlavor="NA" /> <code codeSystem="local&quot ; code="PO2A" displayName="ABG PO2" /> < statusCode code="completed" /> <effectiveTime value=& quot;923185236674" /> <value unit="mmHg" xsi:type= "PQ" value="325" /> <interpretationCode codeSystem="local" code="*" /> < referenceRange> <observationRange> <text>75- 100</text> </observationRange> </ referenceRange> </observation> </component> < component> <observation moodCode="EVN" classCode=" OBS"> <templateId root="2.16.840.1.184371.10..22.4.2& quot; /> <id nullFlavor="NA" /> <code codeSystem="local" code="SATA" displayName="ABG O2 SATURATION" /> <statusCode code="completed" /> <effectiveTime value="555563772505" /> < value unit="%" xsi:type="PQ" value="100" / > <referenceRange> <observationRange> < text>93-100</text> </observationRange> </ referenceRange> </observation> </component> < component> <observation moodCode="EVN" classCode=" OBS"> <templateId root="2.16.840.1.176411.10.20.22.4.2& quot; /> <id nullFlavor="NA" /> <code codeSystem="local" code="CMETHOD" displayName="METHOD& quot; /> <statusCode code="completed" /> & lt;effectiveTime value="112674724481"/> <value unit=& quot;" xsi:type="PQ" value="Bedside" /> < referenceRange> <observationRange> <text /& gt; </observationRange> </referenceRange> </ observation> </component> <component> < observation moodCode="EVN" classCode="OBS"> < templateId root="2.16.840.1.268877.10.20.22.4.2" /><id nullFlavor="NA" /> <code codeSystem="local" code="HMETHOD" displayName="METHOD" /> < statusCode code="completed" /> <effectiveTime value=& quot;339076136545" /> <value unit="" xsi:type=& quot;PQ" value="Bedside" /> <referenceRange> & lt;observationRange> <text /> </ observationRange> </referenceRange> </observation&gt ; </component> <component> <observation moodCode=& quot;EVN" classCode="OBS"> <templateId root=" 2.16.840.1.407120.10.20.22.4.2" /> <id nullFlavor="NA& quot; /> <code codeSystem="local" code="GLU" displayName="GLUCOSE" /> <statusCode code=" completed" /> <effectiveTime value="893202848778" /> <value unit="mg/dL" xsi:type="PQ" value=& quot;49" /> <interpretationCode codeSystem="local&quot ; code="" /> <referenceRange> < observationRange> <text>70-99</text> < /observationRange> </referenceRange> </observation& gt; </component> <component> <observation moodCode="EVN" classCode="OBS"> <templateId root="2.16.840.1.641461.10.20.22.4.2" /> <id nullFlavor ="NA" /> <code codeSystem="local" code=" HGBT" displayName="HEMOGLOBIN" /> <statusCode code ="completed" /> <effectiveTime value="148231846742 " /> <value unit="gm/dL" xsi:type="PQ" value="7.8" /> <interpretationCode codeSystem=" local" code="*" /> <referenceRange> < observationRange> <text>14.0-18.0</text> </observationRange> </referenceRange> </ observation> </component> <component> < observation moodCode="EVN" classCode="OBS"> < templateId root="2.16.840.1.817470.10.20.22.4.2" /> < id nullFlavor="NA" /> <code codeSystem="local&quot ; code="HCTT" displayName="HEMATOCRIT" /> < statusCode code="completed" /><effectiveTime value=" 573035413367" /> <value unit="%"xsi:type=& quot;PQ" value="23.0" /> <interpretationCode codeSystem="local" code="*" /> < referenceRange> <observationRange> <text> 40.0-54.0</text> </observationRange> </ referenceRange> </observation> </component> < component> <observation moodCode="EVN" classCode="OBS& quot;> <templateId root="2.16.840.1.164593.10.20.22.4.2&quot ; /> <id nullFlavor="NA" /> <code codeSystem="local" code="NA" displayName="SODIUM" /> <statusCode code="completed" /> < effectiveTime value="724288870029" /> <value unit=&quot ;mmol/L" xsi:type="PQ" value="135" /> < referenceRange> <observationRange> <text> 135-148</text> </observationRange> </ referenceRange> </observation> </component> < component> <observation moodCode="EVN" classCode=" OBS"> <templateId root="2.16.840.1.395773.10.20.22.4.2& quot; /> <id nullFlavor="NA" /> <code codeSystem="local" code="CO2" displayName="CARBON DIOXIDE" /> <statusCode code="completed" /> <effectiveTime value="210728946073" /> < value unit="mmol/L" xsi:type="PQ" value="26" /&gt ; <referenceRange> <observationRange> <text>21-32</text> </observationRange> &lt ;/referenceRange> </observation> </component> & lt;component> <observation moodCode="EVN"classCode=" OBS"> <templateId root="2.16.840.1.357614.10.20.22.4.2& quot; /> <id nullFlavor="NA" /> <code codeSystem="local" code="CAION" displayName="CALCIUM IONIZED" /> <statusCode code="completed" /> <effectiveTime value="701709706576" /> < value unit="mg/dL" xsi:type="PQ" value="5.0" /&gt ; <referenceRange> <observationRange> <text>4.5-5.3</text> </observationRange> &lt ;/referenceRange> </observation> </component> < /organizer> </entry> <entry> <organizer moodCode=" EVN" classCode="BATTERY"> <templateId root=" 2.16.840.1.897736.10.20.22.4.1" /> <id nullFlavor="NA&quot ; /> <code codeSystem="local" code="iCG8" displayName="SURGERY PROFILE BEDSIDE" /> <statusCode code=& quot;completed" /> <component> <observation moodCode="EVN" classCode="OBS"> <templateId root="2.16.840.1.420480.10.20.22.4.2" /> <id nullFlavor ="NA" /> <code codeSystem="local" code=" K" displayName="POTASSIUM" /> <statusCode code=& quot;completed" /> <effectiveTime value="554991707762& quot; /> <value unit="mmol/L" xsi:type="PQ" value="3.1" /> <interpretationCode codeSystem=" local" code="*" /> <referenceRange> < observationRange> <text>3.5-5.3</text> & lt;/observationRange> </referenceRange> </ observation> </component> <component> < observation moodCode="EVN" classCode="OBS"> < templateId root="2.16.840.1.765897.10.20.22.4.2" /> < id nullFlavor="NA" /> <code codeSystem="local&quot ; code="JAIME" displayName="ABG BASE EXCESS" /> & lt;statusCode code="completed" /> <effectiveTime value= "928989124225" /> <value unit="meq/L" xsi: type="PQ" value="0.0" /> <referenceRange> <observationRange> <text>-3.0-3.0</text& gt; </observationRange> </referenceRange> </ observation> </component> <component> < observation moodCode="EVN" classCode="OBS"> < templateId root="2.16.840.1.204929.10.20.22.4.2" /> < id nullFlavor="NA" /> <code codeSystem="local&quot ; code="HCO3A" displayName="ABG BICARBONATE" /> <statusCode code="completed" /> <effectiveTime value ="525584945407" /> <value unit="meq/L" xsi: type="PQ" value="24.9" /> <referenceRange&gt ; <observationRange> <text>23.0-28.0</text& gt; </observationRange> </referenceRange> </observation> </component> <component> &lt ;observation moodCode="EVN" classCode="OBS"> &lt ;templateId root="2.16.840.1.891417.10.20.22.4.2" /> < id nullFlavor="NA" /> <code codeSystem="local" code=& quot;METHOD" displayName="METHOD" /> <statusCode code="completed" /> <effectiveTime value=" 060550785014" /> <value unit="" xsi:type="PQ& quot; value="Bedside" /> <referenceRange> <observationRange> <text/> </ observationRange> </referenceRange> </observation&gt ; </component> <component> <observation moodCode ="EVN" classCode="OBS"> <templateId root=& quot;2.16.840.1.907421.10.20.22.4.2" /> <id nullFlavor=&quot ;NA" /> <code codeSystem="local" code="PCO2A& quot; displayName="ABG PCO2" /> <statusCode code=" completed" /> <effectiveTime value="075675189878" /> <value unit="mmHg" xsi:type="PQ" value=& quot;40" /> <referenceRange> < observationRange> <text>34-45</text> < /observationRange> </referenceRange> </observation& gt; </component> <component> <observation moodCode="EVN" classCode="OBS"> <templateId root="2.16.840.1.033426.10.20.22.4.2" /> <id nullFlavor ="NA" /> <code codeSystem="local" code=" PHAX" displayName="ABG PH" /> <statusCode code=& quot;completed" /> <effectiveTime value="092173352826& quot; /> <value unit="" xsi:type="PQ" value=& quot;7.41" /> <referenceRange> < observationRange> <text>7.35-7.45</text> </observationRange> </referenceRange> </observation> </component> <component> <observation moodCode=& quot;EVN" classCode="OBS"> <templateIdroot=" 2.16.840.1.320219.10.20.22.4.2" /> <id nullFlavor="NA& quot; /> <code codeSystem="local" code="PO2A&quot ; displayName="ABG PO2" /> <statusCode code=" completed" /> <effectiveTime value="883516600118" /> <value unit="mmHg" xsi:type="PQ" value=& quot;514" /> <interpretationCode codeSystem="local&quot ; code="*" /> <referenceRange> < observationRange> <text>75-100</text> &lt ;/observationRange> </referenceRange> </observation& gt; </component> <component> <observation moodCode="EVN" classCode="OBS"> <templateId root="2.16.840.1.875319.10.20.22.4.2" /> <id nullFlavor ="NA" /> <code codeSystem="local" code=" SATA" displayName="ABG O2 SATURATION" /> < statusCode code="completed" /> <effectiveTime value=& quot;100766995025" /> <value unit="%" xsi:type ="PQ" value="100" /> <referenceRange> <observationRange> <text>93-100</text> </observationRange> </referenceRange> </ observation> </component> <component> < observation moodCode="EVN" classCode="OBS"> < templateId root="2.16.840.1.379342.10..22.4.2" /> < id nullFlavor="NA" /> <code codeSystem="local&quot ; code="CMETHOD" displayName="METHOD" /> < statusCode code="completed" /> <effectiveTime value=& quot;019260739547" /> <value unit="" xsi:type=& quot;PQ" value="Bedside" /> <referenceRange> <observationRange> <text /> </ observationRange> </referenceRange> </observation&gt ; </component> <component> <observation moodCode ="EVN" classCode="OBS"> <templateId root=& quot;2.16.840.1.296877.10..22.4.2" /> <id nullFlavor=&quot ;NA" /> <code codeSystem="local" code=" HMETHOD" displayName="METHOD" /> <statusCode code= "completed" /> <effectiveTime value="187030101613& quot; /> <value unit="" xsi:type="PQ"value=& quot;Bedside" /> <referenceRange> < observationRange> <text /> </observationRange& gt; </referenceRange> </observation> </component& gt; <component> <observation moodCode="EVN" classCode="OBS"> <templateId root=" 2.16.840.1.977580.10.20.22.4.2" /> <id nullFlavor="NA& quot; /> <code codeSystem="local" code="GLU" displayName="GLUCOSE" /> <statusCode code=" completed" /> <effectiveTime value="[id number]" /> <value unit="mg/dL" xsi:type="PQ" value=" 88" /> <referenceRange> <observationRange& gt; <text>70-99</text> </observationRange& gt; </referenceRange> </observation> </component > <component> <observation moodCode="EVN" classCode="OBS"> <templateId root=" [id number]" /> <id nullFlavor="NA&quot ; /> <code codeSystem="local" code="HGBT" displayName="HEMOGLOBIN" /> <statusCode code=" completed" /> <effectiveTime value="061540712285" /> <value unit="gm/dL" xsi:type="PQ" value=& quot;8.8" /> <interpretationCode codeSystem="local&quot ; code="*" /> <referenceRange> < observationRange> <text>14.0-18.0</text> </observationRange> </referenceRange> </ observation> </component> <component> < observation moodCode="EVN" classCode="OBS"> < templateId root="2.16.840.1.446995.10.20.22.4.2" /> < id nullFlavor="NA" /> <code codeSystem="local&quot ; code="HCTT" displayName="HEMATOCRIT" /> < statusCode code="completed" /> <effectiveTime value=& quot;644932729651" /> <value unit="%" xsi: type="PQ" value="26.0" /> < interpretationCode codeSystem="local"code="*" /> <referenceRange> <observationRange> <text> 40.0-54.0</text> </observationRange> </ referenceRange> </observation> </component> < component> <observation moodCode="EVN" classCode=" OBS"> <templateId root="2.16.840.1.864723.10.20.22.4.2& quot; /> <id nullFlavor="NA" /> <code codeSystem="local" code="NA" displayName="SODIUM" /> <statusCode code="completed" /> < effectiveTime value="229407528743" /> <value unit=&quot ;mmol/L" xsi:type="PQ" value="135" /> < referenceRange> <observationRange> <text> 135-148</text> </observationRange> </ referenceRange> </observation> </component> < component> <observation moodCode="EVN" classCode=" OBS"> <templateId root="2.16.840.1.486267.10.20.22.4.2& quot; /> <id nullFlavor="NA" /> <code codeSystem="local" code="CO2" displayName="CARBON DIOXIDE" /> <statusCode code="completed" /> <effectiveTime value="302181527689" /> <value unit=& quot;mmol/L" xsi:type="PQ" value="26" /> & lt;referenceRange> <observationRange> <text& gt;21-32</text> </observationRange> </ referenceRange> </observation> </component> < component> <observation moodCode="EVN" classCode=" OBS"> <templateId root="2.16.840.1.066350.10.20.22.4.2& quot; /> <id nullFlavor="NA" /> <code codeSystem="local" code="CAION" displayName="CALCIUM IONIZED" /> <statusCode code="completed" /> <effectiveTime value="088692708096" /> < value unit="mg/dL" xsi:type="PQ" value="4.8" /&gt ; <referenceRange> <observationRange> <text>4.5-5.3</text> </observationRange> </referenceRange> </observation> </component> </organizer> </entry> <entry> <organizer moodCode= "EVN" classCode="BATTERY"> <templateId root=&quot ;2.16.840.1.976737.10.20.22.4.1" /> <id nullFlavor="NA&quot ; /> <code codeSystem="local" code="iCG8" displayName="SURGERY PROFILE BEDSIDE" /> <statusCode code=& quot;completed" /> <component> <observation moodCode="EVN" classCode="OBS"> <templateId root="2.16.840.1.715239.10.20.22.4.2" /> <id nullFlavor=&quot ;NA" /> <code codeSystem="local" code="K&quot ; displayName="POTASSIUM" /> <statusCode code=" completed" /> <effectiveTime value="913599408141" /> <value unit="mmol/L" xsi:type="PQ" value=& quot;3.1" /> <interpretationCode codeSystem="local&quot ; code="*" /> <referenceRange> < observationRange> <text>3.5-5.3</text> & lt;/observationRange> </referenceRange> </observation&gt ; </component> <component> <observation moodCode ="EVN" classCode="OBS"> <templateId root=& quot;2.16.840.1.005704.10.20.22.4.2" /> <id nullFlavor=&quot ;NA" /> <code codeSystem="local" code="JAIME& quot; displayName="ABG BASE EXCESS" /> <statusCode code ="completed" /> <effectiveTime value="478140819911 " /> <value unit="meq/L" xsi:type="PQ" value="0.0" /> <referenceRange> < observationRange> <text>-3.0-3.0</text> < /observationRange> </referenceRange> </observation& gt; </component> <component> <observation moodCode="EVN" classCode="OBS"> <templateId root="2.16.840.1.008479.10.20.22.4.2" /> <id nullFlavor ="NA" /> <code codeSystem="local" code=" HCO3A" displayName="ABG BICARBONATE" /> < statusCode code="completed" /> <effectiveTime value=& quot;871350433942" /> <value unit="meq/L" xsi:type ="PQ" value="24.9" /> <referenceRange> <observationRange> <text>23.0-28.0</text&gt ; </observationRange> </referenceRange> & lt;/observation> </component> <component> < observationmoodCode="EVN" classCode="OBS"> < templateId root="2.16.840.1.192523.10.20.22.4.2" /> < id nullFlavor="NA" /> <code codeSystem="local&quot ; code="METHOD" displayName="METHOD" /> < statusCode code="completed" /> <effectiveTime value=& quot;882736090755"/> <value unit="" xsi:type=&quot ;PQ" value="Bedside" /> <referenceRange> <observationRange> <text /> </observationRange > </referenceRange> </observation> </ component> <component> <observation moodCode="EVN& quot; classCode="OBS"> <templateId root=" 2.16.840.1.950412.10.20.22.4.2" /><id nullFlavor="NA" /&gt ; <code codeSystem="local" code="PCO2A" displayName="ABG PCO2" /> <statusCode code=" completed" /> <effectiveTime value="969810059788" /> <value unit="mmHg" xsi:type="PQ" value=& quot;40" /> <referenceRange><observationRange> <text>34-45</text> </observationRange> </referenceRange> </observation> </component& gt; <component> <observation moodCode="EVN" classCode="OBS"> <templateId root=" 2.16.840.1.542942.10.20.22.4.2" /> <id nullFlavor="NA& quot; /> <code codeSystem="local" code="PHAX&quot ; displayName="ABG PH" /> <statusCode code=" completed" /> <effectiveTime value="023473099888" /> <value unit="" xsi:type="PQ" value=" 7.41" /> <referenceRange> <observationRange > <text>7.35-7.45</text> </observationRange& gt; </referenceRange> </observation> </ component> <component> <observation moodCode="EVN& quot; classCode="OBS"> <templateId root=" 2.16.840.1.647397.10.20.22.4.2" /> <id nullFlavor="NA& quot; /> <code codeSystem="local" code="PO2A&quot ; displayName="ABG PO2" /> <statusCode code="completed& quot; /> <effectiveTime value="405838673802" /> <value unit="mmHg" xsi:type="PQ" value="514& quot;/> <interpretationCode codeSystem="local" code=& quot;*" /><referenceRange> <observationRange> <text>75-100</text> </observationRange> </referenceRange> </observation> </component > <component> <observation moodCode="EVN" classCode="OBS"> <templateId root=" 2.16.840.1.262342.10..22.4.2" /> <id nullFlavor="NA& quot; /> <code codeSystem="local" code="SATA&quot ; displayName="ABG O2 SATURATION" /> <statusCode code=& quot;completed" /> <effectiveTime value="448691787544& quot; /> <value unit="%" xsi:type="PQ&quot ; value="100" /> <referenceRange> < observationRange> <text>93-100</text> </ observationRange> </referenceRange> </observation&gt ; </component> <component> <observation moodCode ="EVN" classCode="OBS"> <templateId root=& quot;2.16.840.1.678130.10..22.4.2" /><id nullFlavor="NA" /> <code codeSystem="local" code="CMETHOD" displayName="METHOD" /> <statusCode code=" completed" /> <effectiveTime value="086346332998" /> <value unit="" xsi:type="PQ" value=" Bedside" /> <referenceRange> <observationRange> <text /> </observationRange> </ referenceRange> </observation> </component> < component> <observation moodCode="EVN" classCode="OBS& quot;> <templateId root="2.16.840.1.841317.10.20.22.4.2&quot ; /> <id nullFlavor="NA" /> <code codeSystem="local" code="HMETHOD" displayName="METHOD& quot; /> <statusCode code="completed" /> & lt;effectiveTime value="802972091257" /> <value unit=& quot;" xsi:type="PQ" value="Bedside" /> &lt ;referenceRange> <observationRange> <text /& gt; </observationRange> </referenceRange> </observation> </component> <component> &lt ;observation moodCode="EVN" classCode="OBS"> &lt ;templateId root="2.16.840.1.814614.10.20.22.4.2" /> < id nullFlavor="NA" /> <code codeSystem="local&quot ; code="GLU" displayName="GLUCOSE" /> < statusCode code="completed" /> <effectiveTime value=& quot;046128640609" /> <value unit="mg/dL" xsi:type ="PQ" value="88" /> <referenceRange> <observationRange> <text>70-99</text> </observationRange> </referenceRange> </ observation> </component> <component> < observation moodCode="EVN" classCode="OBS"> < templateId root="2.16.840.1.629872.10.20.22.4.2" /> < id nullFlavor="NA" /> <code codeSystem="local&quot ; code="HGBT" displayName="HEMOGLOBIN" /> < statusCode code="completed" /> <effectiveTime value=" 198807795058" /> <value unit="gm/dL" xsi:type=& quot;PQ" value="8.8" /> <interpretationCode codeSystem="local" code="*" /> < referenceRange> <observationRange> <text> 14.0-18.0</text> </observationRange></referenceRange& gt; </observation> </component> <component> <observation moodCode="EVN" classCode="OBS"> <templateId root="2.16.840.1.994131.10.20.22.4.2" /> <id nullFlavor="NA" /> <code codeSystem=" local" code="HCTT" displayName="HEMATOCRIT" /> <statusCode code="completed" /> <effectiveTime value="097940097514" /> <value unit="%& quot; xsi:type="PQ" value="26.0" /> < interpretationCode codeSystem="local" code="*" /> <referenceRange> <observationRange> < text>40.0-54.0</text> </observationRange> &lt ;/referenceRange> </observation> </component> < component> <observation moodCode="EVN" classCode=" OBS"> <templateId root="2.16.840.1.301974.10.20.22.4.2& quot; /> <id nullFlavor="NA" /> <code codeSystem="local" code="NA" displayName="SODIUM" /> <statusCode code="completed" /> < effectiveTime value="524687132573" /> <value unit="mmol/ L" xsi:type="PQ" value="135" /> < referenceRange> <observationRange> <text> 135-148</text> </observationRange> </ referenceRange> </observation> </component> < component> <observation moodCode="EVN" classCode=" OBS"> <templateId root="2.16.840.1.303584.10.20.22.4.2& quot; /> <id nullFlavor="NA" /> <code codeSystem="local" code="CO2" displayName="CARBON DIOXIDE" /> <statusCode code="completed" /> <effectiveTime value="347992816339" /> < value unit="mmol/L" xsi:type="PQ" value="26" /&gt ; <referenceRange> <observationRange> <text>21-32</text> </observationRange> </referenceRange> </observation> </component> <component> <observation moodCode="EVN" classCode= "OBS"> <templateId root=" 2.16.840.1.298747.10..22.4.2" /> <id nullFlavor="NA& quot; /> <code codeSystem="local" code="CAION&quot ; displayName="CALCIUM IONIZED" /> <statusCode code=& quot;completed" /> <effectiveTime value="049165439558& quot; /> <value unit="mg/dL" xsi:type="PQ" value="4.8" /> <referenceRange> < observationRange> <text>4.5-5.3</text> & lt;/observationRange> </referenceRange> </ observation> </component> </organizer> </entry> & lt;entry> <organizer moodCode="EVN" classCode="BATTERY& quot;> <templateId root="2.16.840.1.697389.10.20.22.4.1" /& gt; <id nullFlavor="NA" /> <code codeSystem=" local" code="ABG" displayName="ARTERIAL BLOOD GAS" /&gt ; <statusCode code="completed" /> <component> <observation moodCode="EVN" classCode="OBS"> <templateId root="2.16.840.1.573575.10.20.22.4.2" /> <id nullFlavor="NA" /> <code codeSystem=" local" code="JAIME" displayName="ABG BASE EXCESS" /> <statusCode code="completed" /> <effectiveTime value="267067323320" /> <value unit="meq/L" xsi:type="PQ" value="-1.5" /> <referenceRange > <observationRange> <text>-3.0-3.0</ text> </observationRange> </referenceRange> </observation> </component> <component> <observation moodCode="EVN" classCode="OBS"> <templateId root="2.16.840.1.558839.10.20.22.4.2" /> <id nullFlavor="NA" /> <code codeSystem=" local" code="FIO2A" displayName="ABG FIO2" /> <statusCode code="completed" /> <effectiveTime value="044865808784" /> <value unit="%& quot; xsi:type="PQ" value="60" /> < referenceRange> <observationRange> <text /& gt; </observationRange> </referenceRange> & lt;/observation> </component> <component> < observation moodCode="EVN" classCode="OBS"> < templateId root="2.16.840.1.501191.10.20.22.4.2" /> < id nullFlavor="NA" /> <code codeSystem="local&quot ; code="HCO3A" displayName="ABG BICARBONATE" /> <statusCode code="completed" /> <effectiveTime value ="410039274902" /> <value unit="meq/L" xsi: type="PQ" value="22.5" /> < interpretationCode codeSystem="local" code="*" /> <referenceRange> <observationRange> < text>23.0-28.0</text> </observationRange> &lt ;/referenceRange> </observation> </component> &lt ;component> <observation moodCode="EVN" classCode=" OBS"> <templateId root="2.16.840.1.728723.10..22.4.2& quot; /> <id nullFlavor="NA" /> <code codeSystem="local" code="PCO2A" displayName="ABG PCO2& quot; /> <statusCode code="completed" /> & lt;effectiveTime value="623345773953" /> <value unit=& quot;mmHg" xsi:type="PQ" value="33" /> < interpretationCode codeSystem="local" code="*" /> <referenceRange> <observationRange> < text>34-45</text> </observationRange> </ referenceRange> </observation> </component> < component> <observation moodCode="EVN" classCode=" OBS"> <templateId root="2.16.840.1.699172.10..22.4.2& quot; /> <id nullFlavor="NA" /> <code codeSystem="local" code="PEEPA" displayName="ABGPEEP& quot; /> <statusCode code="completed" /> & lt;effectiveTimevalue="052302612667" /> <value unit=& quot;CM" xsi:type="PQ" value="5" /> < referenceRange> <observationRange> <text /> </observationRange> </referenceRange> </ observation> </component> <component> < observation moodCode="EVN" classCode="OBS"> < templateId root="2.16.840.1.486160.10.20.22.4.2" /> < id nullFlavor="NA" /> <code codeSystem="local&quot ; code="PHAX" displayName="ABG PH" /> < statusCode code="completed" /> <effectiveTime value=& quot;681487298297" /> <value unit="" xsi:type=& quot;PQ" value="7.45" /> <referenceRange> <observationRange> <text>7.35-7.45</text> </observationRange> </referenceRange> </ observation> </component> <component> < observation moodCode="EVN" classCode="OBS"> < templateId root="2.16.840.1.846442.10.20.22.4.2" /> <id nullFlavor="NA" /> <code codeSystem="local" code="PO2A" displayName="ABG PO2" /> < statusCode code="completed" /> <effectiveTime value=& quot;590191953744" /> <value unit="mmHg" xsi:type= "PQ" value="262" /> <interpretationCode codeSystem="local" code="*" /> < referenceRange> <observationRange> <text> 75-100</text> </observationRange></referenceRange> </observation> </component> <component> <observation moodCode="EVN" classCode="OBS"> <templateId root="2.16.840.1.049227.10.20.22.4.2" /> & lt;id nullFlavor="NA" /> <code codeSystem="local& quot; code="PSABG" displayName="ABG PRESSURESUPPORT" /> <statusCode code="completed" /> < effectiveTime value="596566697569" /> <value unit=&quot ;CM" xsi:type="PQ" value="10" /> < referenceRange> <observationRange> <text /> </observationRange> </referenceRange></ observation> </component> <component> < observation moodCode="EVN" classCode="OBS"> < templateId root="2.16.840.1.820942.10..22.4.2" /> < id nullFlavor="NA" /> <code codeSystem="local&quot ; code="RRA" displayName="ABG VENT RATE" /> < statusCode code="completed" /> <effectiveTime value=& quot;838602091995" /> <value unit="" xsi:type=&quot ;PQ" value="12" /> <referenceRange> <observationRange> <text /> </ observationRange> </referenceRange> </observation&gt ; </component> <component> <observation moodCode ="EVN" classCode="OBS"> <templateId root=& quot;2.16.840.1.012217.10.20.22.4.2" /> <id nullFlavor=&quot ;NA" /> <code codeSystem="local" code="SATA& quot; displayName="ABG O2 SATURATION" /> <statusCode code="completed" /> <effectiveTime value=" 966634322862" /> <value unit="%" xsi:type= "PQ" value="99" /> <referenceRange> < observationRange> <text>93-100</text> &lt ;/observationRange> </referenceRange> </observation& gt; </component> <component> <observation moodCode="EVN" classCode="OBS"> <templateId root=&quot ;2.16.840.1.109713.10.20.22.4.2" /> <id nullFlavor="NA& quot; /> <code codeSystem="local" code="TEMPA&quot ; displayName="ABG TEMPERATURE" /> <statusCode code=& quot;completed" /> <effectiveTime value="312365820382& quot; /> <value unit="C" xsi:type="PQ" value= "35.4" /> <referenceRange> < observationRange> <text /> </ observationRange> </referenceRange> </observation&gt ; </component> <component> <observation moodCode ="EVN" classCode="OBS"> <templateId root=& quot;2.16.840.1.649046.10..22.4.2" /> <id nullFlavor=&quot ;NA" /> <codecodeSystem="local" code="TVA& quot; displayName="ABG TIDAL VOLUME" /> <statusCode code=& quot;completed" /> <effectiveTime value="544958825570& quot; /> <value unit="CC" xsi:type="PQ" value ="600"/> <referenceRange> < observationRange> <text /> </ observationRange> </referenceRange> </observation&gt ; </component> </organizer> </entry> <entry> & lt;organizer moodCode="EVN" classCode="BATTERY"> &lt ;templateId root="2.16.840.1.792143.10.20.22.4.1" /> <id nullFlavor="NA" /> <code codeSystem="local" code= "CAION" displayName="CALCIUM IONIZED" /> < statusCode code="completed" /> <component> < observation moodCode="EVN"classCode="OBS"> < templateId root="2.16.840.1.134087.10..22.4.2" /> < id nullFlavor="NA" /> <code codeSystem="local&quot ; code="CAION" displayName="CALCIUM IONIZED" /> <statusCode code="completed" /> <effectiveTime value ="755261430119" /> <value unit="mg/dL" xsi: type="PQ" value="4.5" /> <referenceRange> <observationRange> <text>4.5-5.3</text& gt; </observationRange> </referenceRange> </ observation> </component> </organizer> </entry> & lt;entry> <organizer moodCode="EVN" classCode="BATTERY& quot;> <templateId root="2.16.840.1.481110.10.20.22.4.1" /& gt; <id nullFlavor="NA" /> <code codeSystem=" local" code="CBC" displayName="CBC" /> < statusCode code="completed" /> <component> < observation moodCode="EVN" classCode="OBS"> < templateId root="2.16.840.1.703335.10..22.4.2" /> < id nullFlavor="NA" /> <code codeSystem="local&quot ; code="MCH" displayName="MEAN CELL HGB" /> < statusCode code="completed" /> <effectiveTime value=& quot;463098295033" /> <value unit="pg" xsi:type=& quot;PQ" value="32.6" /> <referenceRange> <observationRange> <text>27.0-33.0</text> </observationRange> </referenceRange> & lt;/observation> </component> <component> < observation moodCode="EVN" classCode="OBS"> < templateId root="2.16.840.1.643238.10.20.22.4.2" /> < id nullFlavor="NA" /> <code codeSystem="local&quot ; code="MCHC" displayName="MEAN CELL HGB CONCENTRATION" /&gt ; <statusCode code="completed" /> < effectiveTime value="246196644549" /> <value unit=&quot ;g/dl" xsi:type="PQ" value="34.6" /> < referenceRange> <observationRange> <text> 32.0-36.0</text> </observationRange> </ referenceRange> </observation> </component> < component> <observation moodCode="EVN" classCode=" OBS"><templateId root="2.16.840.1.267234.10.20.22.4.2" /&gt ; <id nullFlavor="NA" /> <code codeSystem=& quot;local" code="MCV" displayName="MEAN CELL VOLUME" / > <statusCode code="completed" /> < effectiveTime value="334305807292" /> <value unit=&quot ;fl" xsi:type="PQ" value="94.3" /> < referenceRange> <observationRange> <text> 80.0-100.0</text> </observationRange> </ referenceRange> </observation> </component> < component> <observation moodCode="EVN" classCode="OBS "> <templateId root="2.16.840.1.193139.10.20.22.4.2& quot; /> <id nullFlavor="NA" /> <code codeSystem="local" code="RBC" displayName="RED BLOOD CELL" /> <statusCode code="completed" /> <effectiveTime value="064052787779" /> <value unit="m/cumm" xsi:type="PQ"value="3.16" /> <interpretationCode codeSystem="local" code="*" /& gt; <referenceRange> <observationRange> <text>4.00-6.00</text> </observationRange> </referenceRange> </observation> </component&gt ; <component> <observation moodCode="EVN" classCode="OBS"> <templateId root=" 2.16.840.1.730044.10.20.22.4.2" /> <id nullFlavor="NA& quot; /> <code codeSystem="local" code="RDW" displayName="RED CELL DISTRIBUTION WIDTH" /> <statusCode code="completed" /> <effectiveTime value=" 466512933677" /> <value unit="%" xsi:type= "PQ" value="12.2" /> <referenceRange> <observationRange> <text>11.0-15.6</text&gt ; </observationRange> </referenceRange> & lt;/observation> </component> <component> < observation moodCode="EVN" classCode="OBS"> < templateId root="2.16.840.1.224641.10.20.22.4.2" /> < id nullFlavor="NA" /> <code codeSystem="local&quot ; code="WBC" displayName="WHITE BLOOD CELL" />< statusCode code="completed" /> <effectiveTime value=& quot;243422733781" /> <value unit="k/cumm" xsi: type="PQ" value="17.5"/> <interpretationCode codeSystem="local" code="*" /><referenceRange> <observationRange> <text>5.0-10.0</text> </observationRange> </referenceRange> & lt;/observation> </component> <component> < observation moodCode="EVN" classCode="OBS"> < templateId root="2.16.840.1.133859.10.20.22.4.2" /> < id nullFlavor="NA" /> <code codeSystem="local&quot ; code="HGBT" displayName="HEMOGLOBIN" /> < statusCode code="completed" /> <effectiveTime value=& quot;184955600716" /> <value unit="gm/dL" xsi:type ="PQ" value="10.3" /> <interpretationCode codeSystem="local" code="*" /> < referenceRange> <observationRange> <text>14.0-18.0& lt;/text> </observationRange> </referenceRange& gt; </observation> </component> <component> <observation moodCode="EVN" classCode="OBS"> <templateId root="2.16.840.1.888543.10.20.22.4.2" /> & lt;id nullFlavor="NA" /> <code codeSystem="local& quot; code="HCTT" displayName="HEMATOCRIT" /> & lt;statusCode code="completed" /> <effectiveTime value= "995768549536" /> <value unit="%" xsi :type="PQ" value="29.8" /> < interpretationCode codeSystem="local" code="*" /> <referenceRange> <observationRange> <text >40.0-54.0</text> </observationRange> </ referenceRange> </observation> </component> < component> <observation moodCode="EVN" classCode=" OBS"> <templateId root="2.16.840.1.970404.10.20.22.4.2& quot; /> <id nullFlavor="NA" /><code codeSystem=& quot;local" code="PLT" displayName="PLATELET COUNT" /& gt; <statusCode code="completed" /> < effectiveTime value="445629159728" /> <value unit=&quot ;k/cumm" xsi:type="PQ" value="123" /> < interpretationCode codeSystem="local" code="*" /> <referenceRange> <observationRange> < text>150-450</text> </observationRange> </ referenceRange> </observation> </component> </ organizer> </entry> <entry> <organizer moodCode="EVN " classCode="BATTERY"> <templateId root=" 2.16.840.1.859978.10.20.22.4.1" /> <id nullFlavor="NA&quot ; /> <code codeSystem="local" code="METAB" displayName="METABOLIC PANEL, BASIC" /> <statusCode code=&quot ;completed" /> <component> <observation moodCode=& quot;EVN" classCode="OBS"> <templateId root=" 2.16.840.1.060815.10.20.22.4.2" /> <id nullFlavor="NA& quot; /> <code codeSystem="local" code="K" displayName="POTASSIUM" /> <statusCode code=" completed" /> <effectiveTime value="386234869034" /> <value unit="mmol/L" xsi:type="PQ" value=& quot;3.2" /> <interpretationCode codeSystem="local" code= "*" /> <referenceRange> < observationRange> <text>3.5-5.3</text> </ observationRange> </referenceRange> </observation&gt ; </component> <component> <observation moodCode ="EVN" classCode="OBS"> <templateId root=& quot;2.16.840.1.590467.10..22.4.2" /> <id nullFlavor=&quot ;NA" /> <code codeSystem="local" code="eGFR& quot; displayName="EST GFR (MDRD)" /> <statusCode code= "completed" /> <effectiveTime value="862170612977& quot; /> <value unit="mL/min" xsi:type="PQ" value="> 60" /> <referenceRange> & lt;observationRange> <text>> 59</text></ observationRange> </referenceRange> </observation&gt ; </component> <component> <observation moodCode ="EVN" classCode="OBS"> <templateId root=& quot;2.16.840.1.867148.10..22.4.2" /> <id nullFlavor=&quot ;NA" /> <code codeSystem="local" code="GAP& quot; displayName="ANION GAP" /> <statusCode code=&quot ;completed" /> <effectiveTime value="059032664253" /& gt; <value unit="mmol/L" xsi:type="PQ" value=& quot;8" /> <referenceRange> < observationRange> <text>5-15</text> </ observationRange> </referenceRange> </observation&gt ; </component> <component> <observation moodCode ="EVN" classCode="OBS"> <templateId root=& quot;2.16.840.1.742051.10.20.22.4.2" /> <id nullFlavor=&quot ;NA" /> <code codeSystem="local" code="GLU& quot; displayName="GLUCOSE" /> <statusCode code=" completed" /> <effectiveTime value="273728048317" /> <value unit="mg/dL" xsi:type="PQ" value=& quot;89" /> <referenceRange> < observationRange> <text>70-99</text> </ observationRange> </referenceRange> </observation&gt ; </component> <component> <observation moodCode ="EVN" classCode="OBS"> <templateId root=& quot;[id number]" /> <id nullFlavor=&quot ;NA" /> <codecodeSystem="local" code="CA&quot ; displayName="CALCIUM" /> <statusCode code=" completed" /> <effectiveTime value="[id number]"/ > <value unit="mg/dL" xsi:type="PQ" value=& quot;7.7" /> <interpretationCode codeSystem="local" code="*" /> <referenceRange> < observationRange> <text>8.5-10.1</text> < /observationRange> </referenceRange> </observation& gt;</component> <component> <observation moodCode=& quot;EVN" classCode="OBS"> <templateId root=" 2.16.840.1.738785.10.20.22.4.2" /> <id nullFlavor="NA" /> <code codeSystem="local" code="BUN" displayName="BLOOD UREA NITROGEN" /> <statusCode code=& quot;completed" /> <effectiveTime value="235204438457& quot; /> <value unit="mg/dL" xsi:type="PQ" value="17" /> <referenceRange> < observationRange> <text>7-20</text> </ observationRange> </referenceRange> </observation&gt ; </component> <component> <observation moodCode ="EVN" classCode="OBS"> <templateId root=& quot;2.16.840.1.181874.10.20.22.4.2" /> <id nullFlavor=&quot ;NA" /> <code codeSystem="local" code="CREAT& quot; displayName="CREATININE" /> <statusCode code=& quot;completed" /> <effectiveTime value="790316347891" /& gt; <value unit="mg/dL" xsi:type="PQ" value=& quot;0.7" /> <interpretationCode codeSystem="local&quot ; code="*" /> <referenceRange> < observationRange> <text>0.8-1.3</text> & lt;/observationRange> </referenceRange> </ observation> </component> <component> < observation moodCode="EVN" classCode="OBS"> < templateId root="2.16.840.1.185775.10..22.4.2" /> < id nullFlavor="NA" /> <code codeSystem="local" code= "NA" displayName="SODIUM" /> <statusCode code=& quot;completed" /> <effectiveTime value="736999302328& quot; /> <value unit="mmol/L" xsi:type="PQ" value="137" /> <referenceRange> < observationRange> <text>135-148</text> & lt;/observationRange> </referenceRange></observation> </component> <component> <observation moodCode=& quot;EVN" classCode="OBS"> <templateId root=" 2.16.840.1.010239.10.20.22.4.2" /> <id nullFlavor="NA& quot; /> <code codeSystem="local" code="CL" displayName="CHLORIDE" /> <statusCode code=" completed" /> <effectiveTime value="253719702888" /> <value unit="mmol/L" xsi:type="PQ" value=" 105" /> <referenceRange> <observationRange& gt; <text>98-110</text> </observationRange > </referenceRange> </observation> </ component> <component> <observation moodCode="EVN& quot; classCode="OBS"> <templateId root=" 2.16.840.1.893130.10.20.22.4.2" /> <id nullFlavor="NA&quot ; /> <code codeSystem="local" code="CO2" displayName="CARBON DIOXIDE" /> <statusCode code=" completed" /> <effectiveTime value="060614101654" /> <value unit="mmol/L" xsi:type="PQ" value=& quot;24" /> <referenceRange> < observationRange> <text>21-32</text> < /observationRange> </referenceRange> </observation& gt; </component> </organizer> </entry> <entry&gt ; <organizer moodCode="EVN" classCode="BATTERY"> <templateId root="2.16.840.1.498573.10.20.22.4.1" /> & lt;id nullFlavor="NA" /> <code codeSystem="local&quot ; code="MAG" displayName="MAGNESIUM" /> < statusCode code="completed" /> <component> < observation moodCode="EVN" classCode="OBS"> < templateId root="2.16.840.1.283360.10.20.22.4.2" /> < id nullFlavor="NA" /> <code codeSystem="local&quot ; code="MAG" displayName="MAGNESIUM" /> < statusCode code="completed" /> <effectiveTime value=& quot;254631698924" /> <value unit="mg/dL" xsi:type ="PQ" value="2.3" /> <referenceRange> <observationRange> <text>1.8-2.4</text> </observationRange> </referenceRange> </ observation> </component> </organizer> </entry> & lt;entry> <organizer moodCode="EVN" classCode="BATTERY& quot;> <templateId root="2.16.840.1.981794.10.20.22.4.1" /& gt; <id nullFlavor="NA" /> <code codeSystem=" local" code="ABG" displayName="ARTERIAL BLOOD GAS" /&gt ; <statusCode code="completed" /> <component> <observation moodCode="EVN" classCode="OBS"> <templateId root="2.16.840.1.698482.10.20.22.4.2" /> <id nullFlavor="NA" /> <code codeSystem=" local" code="JAIME" displayName="ABG BASE EXCESS" /> <statusCode code="completed" /> < effectiveTime value="417382341507" /> <value unit=&quot ;meq/L" xsi:type="PQ" value="-1.5" /> < referenceRange> <observationRange> <text> -3.0-3.0</text> </observationRange></referenceRange&gt ; </observation> </component> <component> <observation moodCode="EVN" classCode="OBS"> <templateId root="2.16.840.1.160501.10..22.4.2" /> <id nullFlavor="NA" /> <code codeSystem="local " code="FIO2A" displayName="ABG FIO2" /> & lt;statusCode code="completed" /> <effectiveTime value= "129042087235" /> <value unit="%" xsi :type="PQ" value="60" /> <referenceRange> <observationRange> <text /> </ observationRange> </referenceRange> </observation&gt ; </component> <component> <observation moodCode ="EVN" classCode="OBS"> <templateId root=& quot;2.16.840.1.947243.10..22.4.2" /> <id nullFlavor=&quot ;NA" /> <code codeSystem="local" code="HCO3A& quot; displayName="ABG BICARBONATE" /> <statusCode code ="completed" /> <effectiveTime value="297913284218 " /> <value unit="meq/L" xsi:type="PQ" value="22.5" /> <interpretationCode codeSystem="local&quot ; code="*" /> <referenceRange> < observationRange> <text>23.0-28.0</text> </ observationRange> </referenceRange> </observation&gt ; </component> <component> <observation moodCode ="EVN" classCode="OBS"> <templateId root=& quot;2.16.840.1.790829.10.20.22.4.2" /><id nullFlavor="NA" /> <code codeSystem="local" code="PCO2A" displayName="ABG PCO2" /> <statusCode code=" completed" /> <effectiveTime value="396648344757" /> <value unit="mmHg" xsi:type="PQ" value=& quot;33" /> <interpretationCode codeSystem="local&quot ; code="*" /> <referenceRange> < observationRange> <text>34-45</text> < /observationRange> </referenceRange> </observation& gt; </component> <component> <observation moodCode=& quot;EVN" classCode="OBS"> <templateId root=" 2.16.840.1.472271.10..22.4.2" /> <id nullFlavor="NA& quot; /> <code codeSystem="local" code="PEEPA" displayName="ABG PEEP" /> <statusCode code=" completed" /> <effectiveTime value="626596841716" /> <value unit="CM" xsi:type="PQ" value=&quot ;5" /> <referenceRange> <observationRange& gt; <text /> </observationRange> & lt;/referenceRange> </observation> </component> <component> <observation moodCode="EVN" classCode=& quot;OBS"> <templateId root=" 2.16.840.1.839023.10.20.22.4.2" /> <id nullFlavor="NA& quot; /> <code codeSystem="local" code="PHAX&quot ; displayName="ABG PH" /> <statusCode code=" completed" /> <effectiveTime value="974581632152" /> <value unit="" xsi:type="PQ" value=" 7.45" /> <referenceRange> <observationRange > <text>7.35-7.45</text> </ observationRange> </referenceRange> </observation&gt ; </component> <component> <observation moodCode ="EVN" classCode="OBS"> <templateId root=& quot;2.16.840.1.429205.10.20.22.4.2" /> <id nullFlavor=&quot ;NA" /> <code codeSystem="local" code="PO2A& quot; displayName="ABG PO2" /> <statusCode code=" completed" /> <effectiveTime value="345124676637" /> <value unit="mmHg" xsi:type="PQ" value="262& quot; /> <interpretationCode codeSystem="local" code=& quot;*" /> <referenceRange> < observationRange> <text>75-100</text> < /observationRange> </referenceRange> </observation& gt; </component> <component> <observation moodCode="EVN" classCode="OBS"> <templateId root="2.16.840.1.344916.10.20.22.4.2" /> <id nullFlavor ="NA" /> <code codeSystem="local" code=" PSABG" displayName="ABG PRESSURE SUPPORT" /> < statusCode code="completed" /> <effectiveTime value=& quot;258349564040" /> <value unit="CM" xsi:type=& quot;PQ" value="10" /> <referenceRange> <observationRange> <text /> </ observationRange> </referenceRange> </observation&gt ; </component> <component> <observation moodCode ="EVN" classCode="OBS"> <templateId root=& quot;2.16.840.1.507186.10.20.22.4.2" /> <id nullFlavor=&quot ;NA" /> <code codeSystem="local" code="RRA& quot; displayName="ABG VENT RATE" /> <statusCode code=& quot;completed" /> <effectiveTime value="180930692588& quot; /> <value unit="" xsi:type="PQ" value=& quot;12" /> <referenceRange> < observationRange> <text /> </ observationRange> </referenceRange> </observation&gt ; </component> <component> <observation moodCode ="EVN" classCode="OBS"> <templateId root=" 2.16.840.1.168190.10.20.22.4.2" /> <id nullFlavor="NA& quot; /> <code codeSystem="local" code="SATA&quot ; displayName="ABG O2 SATURATION" /> <statusCode code=& quot;completed" /> <effectiveTime value="994993300550& quot; /> <value unit="%" xsi:type="PQ&quot ; value="99" /> <referenceRange> < observationRange> <text>93-100</text> &lt ;/observationRange> </referenceRange> </observation&gt ; </component> <component> <observation moodCode ="EVN" classCode="OBS"> <templateId root=& quot;2.16.840.1.023568.10.20.22.4.2" /> <id nullFlavor=&quot ;NA" /> <code codeSystem="local" code="TEMPA& quot; displayName="ABG TEMPERATURE" /> <statusCode code ="completed" /> <effectiveTime value="492278987645 " /> <value unit="C" xsi:type="PQ" value ="35.4" /> <referenceRange> < observationRange> <text /> </observationRange& gt; </referenceRange> </observation> </component& gt; <component> <observation moodCode="EVN" classCode="OBS"> <templateId root=" 2.16.840.1.923872.10.20.22.4.2" /> <id nullFlavor="NA& quot; /> <code codeSystem="local" code="TVA" displayName="ABG TIDAL VOLUME" /> <statusCode code=& quot;completed" /> <effectiveTime value="339734650260& quot;/> <value unit="CC" xsi:type="PQ" value= "600" /> <referenceRange> <observationRange > <text /> </observationRange> </ referenceRange> </observation> </component> </ organizer> </entry> <entry> <organizer moodCode="EVN " classCode="BATTERY"> <templateId root=" 2.16.840.1.716195.10.20.22.4.1" /> <id nullFlavor="NA&quot ; /> <code codeSystem="local" code="CAION" displayName="CALCIUM IONIZED" /> <statusCode code=" completed" /> <component> <observation moodCode=& quot;EVN" classCode="OBS"> <templateId root=" 2.16.840.1.134452.10.20.22.4.2" /> <id nullFlavor="NA&quot ; /> <code codeSystem="local" code="CAION" displayName="CALCIUM IONIZED" /> <statusCode code=&quot ;completed" /> <effectiveTime value="263119409450&quot ; /> <value unit="mg/dL" xsi:type="PQ" value= "4.5" /> <referenceRange> < observationRange> <text>4.5-5.3</text> & lt;/observationRange> </referenceRange> </ observation> </component> </organizer> </entry> & lt;entry> <organizer moodCode="EVN"classCode="BATTERY& quot;> <templateId root="2.16.840.1.521024.10.20.22.4.1" /& gt; <id nullFlavor="NA" /> <code codeSystem=" local" code="CBC" displayName="CBC" /> < statusCode code="completed" /> <component> < observation moodCode="EVN" classCode="OBS"> < templateId root="2.16.840.1.563545.10.20.22.4.2" /> < id nullFlavor="NA" /> <code codeSystem="local&quot ; code="MCH" displayName="MEAN CELL HGB" /> < statusCode code="completed" /> <effectiveTime value=" 430512721546" /> <value unit="pg" xsi:type=" PQ" value="32.6" /> <referenceRange> <observationRange> <text>27.0-33.0</text> </observationRange> </referenceRange> </ observation> </component> <component> < observation moodCode="EVN" classCode="OBS"> < templateId root="2.16.840.1.051311.10.20.22.4.2" /> < id nullFlavor="NA" /> <code codeSystem="local&quot ; code="MCHC" displayName="MEAN CELL HGB CONCENTRATION" /&gt ; <statusCode code="completed" /> < effectiveTime value="478159672698" /> <value unit=&quot ;g/dl" xsi:type="PQ" value="34.6" /> < referenceRange> <observationRange> <text> 32.0-36.0</text> </observationRange> </ referenceRange> </observation> </component> < component> <observation moodCode="EVN" classCode=" OBS"> <templateId root="2.16.840.1.086584.10.20.22.4.2& quot; /> <id nullFlavor="NA"/> <code codeSystem="local" code="MCV" displayName="MEAN CELL VOLUME" /> <statusCode code="completed" /> <effectiveTime value="120834094610" /> <value unit="fl" xsi:type="PQ" value="94.3" /> <referenceRange> <observationRange> <text >80.0-100.0</text> </observationRange> </ referenceRange> </observation> </component> < component> <observation moodCode="EVN" classCode=" OBS"> <templateId root="2.16.840.1.984799.10.20.22.4.2& quot; /> <id nullFlavor="NA" /> <code codeSystem= "local" code="RBC" displayName="RED BLOOD CELL" /& gt; <statusCode code="completed" /> < effectiveTime value="242000286186" /> <value unit=&quot ;m/cumm" xsi:type="PQ" value="3.16" /> < interpretationCode codeSystem="local" code="*" /> <referenceRange> <observationRange> < text>4.00-6.00</text> </observationRange> &lt ;/referenceRange> </observation> </component> & lt;component> <observation moodCode="EVN" classCode=&quot ;OBS"> <templateId root="2.16.840.1.216991.10..22.4.2 " /> <id nullFlavor="NA" /> <code codeSystem="local" code="RDW" displayName="RED CELL DISTRIBUTION WIDTH" /> <statusCode code="completed&quot ; /> <effectiveTime value="323916645275" /> <value unit="%" xsi:type="PQ" value="12.2& quot; /> <referenceRange> <observationRange> <text>11.0-15.6</text> </ observationRange> </referenceRange> </observation&gt ; </component> <component> <observation moodCode ="EVN" classCode="OBS"> <templateId root=& quot;2.16.840.1.169854.10.20.22.4.2" /> <id nullFlavor=&quot ;NA" /> <code codeSystem="local" code="WBC& quot; displayName="WHITE BLOOD CELL" /> <statusCode code="completed" /> <effectiveTime value=" 419270713354" /> <value unit="k/cumm" xsi:type=& quot;PQ" value="17.5" /> <interpretationCode codeSystem ="local" code="*" /> <referenceRange> <observationRange> <text>5.0-10.0</text> </observationRange> </referenceRange> </ observation> </component> <component> < observation moodCode="EVN" classCode="OBS"> < templateId root="2.16.840.1.959829.10.20.22.4.2" /> <id nullFlavor="NA" /> <code codeSystem="local" code="HGBT" displayName="HEMOGLOBIN" /> < statusCode code="completed"/> <effectiveTime value=& quot;621011384686" /> <value unit="gm/dL" xsi:type ="PQ" value="10.3" /> <interpretationCode codeSystem="local" code="*" /> < referenceRange> <observationRange> <text> 14.0-18.0</text> </observationRange> </ referenceRange> </observation> </component> < component> <observation moodCode="EVN" classCode=" OBS"> <templateId root="2.16.840.1.771387.10.20.22.4.2& quot; /> <id nullFlavor="NA" /> <code codeSystem="local" code="HCTT" displayName="HEMATOCRIT& quot; /> <statusCode code="completed" /> & lt;effectiveTime value="075669814761" /> <value unit=& quot;%" xsi:type="PQ" value="29.8" /> <interpretationCode codeSystem="local" code="*" /&gt ; <referenceRange> <observationRange> <text& gt;40.0-54.0</text> </observationRange> </ referenceRange> </observation> </component> < component> <observation moodCode="EVN" classCode=" OBS"> <templateId root="2.16.840.1.247093.10.20.22.4.2& quot; /> <id nullFlavor="NA" /> <code codeSystem="local" code="PLT" displayName="PLATELET COUNT" /> <statusCode code="completed" /> < effectiveTime value="526114531130" /> <value unit=&quot ;k/cumm" xsi:type="PQ" value="123" /> < interpretationCode codeSystem="local" code="*" /> < referenceRange> <observationRange> <text> 150-450</text> </observationRange> </ referenceRange> </observation> </component> </ organizer> </entry> <entry> <organizer moodCode="EVN " classCode="BATTERY"> <templateId root=" 2.16.840.1.771384.10.20.22.4.1" /> <id nullFlavor="NA&quot ; /> <code codeSystem="local" code="METAB" displayName="METABOLIC PANEL, BASIC" /> <statusCode code=& quot;completed" /> <component> <observation moodCode="EVN" classCode="OBS"> <templateId root="2.16.840.1.765887.10.20.22.4.2" /> <id nullFlavor ="NA" /> <code codeSystem="local" code=" K" displayName="POTASSIUM" /> <statusCode code=& quot;completed" /> <effectiveTime value="536638442032& quot; /> <value unit="mmol/L" xsi:type="PQ" value="3.2" /> <interpretationCode codeSystem=" local" code="*" /> <referenceRange> <observationRange> <text>3.5-5.3</text> </observationRange> </referenceRange> </ observation> </component> <component> < observation moodCode="EVN" classCode="OBS"> < templateId root="2.16.840.1.454766.10.20.22.4.2" /> < id nullFlavor="NA" /> <code codeSystem="local&quot ; code="eGFR" displayName="EST GFR (MDRD)" /> & lt;statusCode code="completed" /> <effectiveTime value=& quot;162315007855" /> <value unit="mL/min" xsi: type="PQ" value="> 60" /> < referenceRange> <observationRange> <text>&gt ; 59</text> </observationRange> </ referenceRange> </observation> </component> < component> <observation moodCode="EVN" classCode=" OBS"> <templateId root="2.16.840.1.633766.10.20.22.4.2& quot; /> <id nullFlavor="NA" /> <code codeSystem="local" code="GAP" displayName="ANION GAP& quot; /> <statusCode code="completed" /> & lt;effectiveTime value="120397268808" /> <value unit=& quot;mmol/L" xsi:type="PQ" value="8" /> &lt ;referenceRange> <observationRange> <text&gt ;5-15</text> </observationRange> </ referenceRange> </observation> </component> < component> <observation moodCode="EVN" classCode="OBS& quot;> <templateId root="2.16.840.1.522259.10.20.22.4.2&quot ; /> <id nullFlavor="NA" /> <code codeSystem="local" code="GLU" displayName="GLUCOSE&quot ; /> <statusCode code="completed" /> < effectiveTime value="228511299228" /> <value unit=&quot ;mg/dL" xsi:type="PQ" value="89" /> < referenceRange> <observationRange> <text> 70-99</text> </observationRange> </ referenceRange> </observation> </component> < component> <observation moodCode="EVN" classCode=" OBS"> <templateId root="2.16.840.1.736087.10.20.22.4.2& quot; /> <id nullFlavor="NA" /> <code codeSystem="local" code="CA" displayName="CALCIUM&quot ; /> <statusCodecode="completed" /> < effectiveTime value="199635351649" /> <value unit="mg/ dL" xsi:type="PQ" value="7.7" /> < interpretationCode codeSystem="local" code="*" /> <referenceRange> <observationRange> < text>8.5-10.1</text> </observationRange> < /referenceRange> </observation> </component> &lt ;component> <observation moodCode="EVN" classCode=" OBS"> <templateId root="2.16.840.1.764217.10.20.22.4.2& quot; /> <id nullFlavor="NA" /> <code codeSystem="local" code="BUN" displayName="BLOOD UREA NITROGEN" /> <statusCode code="completed" /> <effectiveTime value="920628926092" /> < value unit="mg/dL" xsi:type="PQ" value="17" /> <referenceRange> <observationRange> < text>7-20</text> </observationRange> </ referenceRange> </observation> </component> < component> <observation moodCode="EVN" classCode=" OBS"> <templateId root="2.16.840.1.577312.10.20.22.4.2" /& gt; <id nullFlavor="NA" /> <code codeSystem ="local" code="CREAT" displayName="CREATININE" /& gt; <statusCode code="completed" /> < effectiveTime value="377503989870" /> <value unit=&quot ;mg/dL" xsi:type="PQ" value="0.7" /> < interpretationCode codeSystem="local" code="*" /> <referenceRange> <observationRange> <text> 0.8-1.3</text> </observationRange> </ referenceRange> </observation> </component> < component> <observation moodCode="EVN" classCode=" OBS"> <templateId root="2.16.840.1.746530.10.20.22.4.2& quot; /> <id nullFlavor="NA" /> <code codeSystem="local" code="NA" displayName="SODIUM" /> <statusCode code="completed" /> < effectiveTime value="296858954120" /> <value unit=&quot ;mmol/L" xsi:type="PQ" value="137" /> < referenceRange> <observationRange> <text> 135-148</text> </observationRange> </ referenceRange> </observation> </component> < component> <observation moodCode="EVN" classCode=" OBS"> <templateId root="2.16.840.1.321065.10.20.22.4.2& quot; /> <id nullFlavor="NA" /> <code codeSystem="local" code="CL" displayName="CHLORIDE&quot ; /> <statusCode code="completed" /> < effectiveTime value="942439406552" /> <value unit=&quot ;mmol/L" xsi:type="PQ" value="105" /> < referenceRange> <observationRange> <text> 98-110</text> </observationRange> </referenceRange> </observation> </component> <component> <observation moodCode="EVN" classCode="OBS"> <templateId root="2.16.840.1.991888.10.20.22.4.2" /> <id nullFlavor="NA" /> <code codeSystem=" local" code="CO2" displayName="CARBON DIOXIDE" /> <statusCode code="completed" /> < effectiveTime value="799174236936" /> <value unit=&quot ;mmol/L" xsi:type="PQ" value="24" /> < referenceRange> <observationRange> <text>21-32< /text> </observationRange> </referenceRange> </observation> </component> </organizer> < /entry> <entry> <organizer moodCode="EVN" classCode=& quot;BATTERY"> <templateId root=" 2.16.840.1.617587.10.20.22.4.1" /> <id nullFlavor="NA&quot ; /> <code codeSystem="local" code="MAG" displayName="MAGNESIUM" /> <statusCode code="completed " /> <component> <observation moodCode="EVN& quot; classCode="OBS"> <templateId root=" 2.16.840.1.555308.10.20.22.4.2" /> <id nullFlavor="NA& quot; /> <code codeSystem="local" code="MAG" displayName="MAGNESIUM" /> <statusCode code=" completed" /> <effectiveTime value="188063431526" /> <value unit="mg/dL" xsi:type="PQ" value=& quot;2.3" /> <referenceRange> < observationRange> <text>1.8-2.4</text> & lt;/observationRange> </referenceRange> </ observation> </component> </organizer> </entry> & lt;entry> <organizer moodCode="EVN" classCode="BATTERY& quot;> <templateId root="2.16.840.1.112365.10.20.22.4.1" /&gt ; <id nullFlavor="NA" /> <code codeSystem=" local" code="GLUMON" displayName="GLUCOSE (POC)" /> <statusCode code="completed" /> <component> <observation moodCode="EVN" classCode="OBS"> <templateId root="2.16.840.1.440315.10.20.22.4.2" /> <id nullFlavor="NA" /> <code codeSystem=" local" code="GLUMON" displayName="GLUCOSE (POC)" /> <statusCode code="completed" /> < effectiveTime value="075396279774" /> <value unit=&quot ;mg/dL" xsi:type="PQ" value="89" /> < referenceRange> <observationRange> <text>70-99& lt;/text> </observationRange> </referenceRange& gt; </observation> </component> </organizer> & lt;/entry> <entry> <organizer moodCode="EVN" classCode ="BATTERY"> <templateId root=" 2.16.840.1.172577.10.20.22.4.1" /> <id nullFlavor="NA&quot ; /> <code codeSystem="local" code="GLUMON" displayName="GLUCOSE (POC)" /> <statusCode code=" completed" /> <component> <observation moodCode=& quot;EVN" classCode="OBS"> <templateId root=" 2.16.840.1.894994.10.20.22.4.2" /> <id nullFlavor="NA& quot; /><code codeSystem="local" code="GLUMON" displayName="GLUCOSE (POC)" /> <statusCode code=" completed" /> <effectiveTime value="207498584625" /> <value unit="mg/dL" xsi:type="PQ" value=& quot;89" /> <referenceRange> < observationRange> <text>70-99</text> < /observationRange> </referenceRange> </observation> </component> </organizer> </entry> <entry> <organizer moodCode="EVN" classCode="BATTERY"> & lt;templateId root="2.16.840.1.068288.10.20.22.4.1" /> <id nullFlavor="NA" /> <code codeSystem="local" code= "GLUMON" displayName="GLUCOSE (POC)" /> < statusCode code="completed" /> <component> < observation moodCode="EVN" classCode="OBS"> < templateId root="2.16.840.1.422242.10.20.22.4.2" /> < id nullFlavor="NA" /> <code codeSystem="local&quot ; code="GLUMON" displayName="GLUCOSE (POC)" /> < statusCode code="completed" /> <effectiveTime value=& quot;610185775150" /> <value unit="mg/dL" xsi:type ="PQ" value="107" /> <interpretationCode codeSystem="local" code="*" /> <referenceRange> <observationRange> <text>70-99</text> </observationRange> </referenceRange> < /observation> </component> </organizer> </entry> & lt;entry> <organizer moodCode="EVN" classCode="BATTERY& quot;> <templateId root="2.16.840.1.702313.10.20.22.4.1" /& gt; <id nullFlavor="NA" /> <code codeSystem=" local" code="GLUMON" displayName="GLUCOSE (POC)" /> <statusCode code="completed" /> <component> <observation moodCode="EVN" classCode="OBS"> <templateId root="2.16.840.1.890478.10.20.22.4.2" /> <id nullFlavor="NA" /> <code codeSystem=" local" code="GLUMON" displayName="GLUCOSE (POC)" /> <statusCode code="completed" /> < effectiveTime value="[id number]" /> <value unit=&quot ;mg/dL" xsi:type="PQ" value="107" /> < interpretationCode codeSystem="local" code="*" /> <referenceRange> <observationRange> < text>70-99</text> </observationRange> </ referenceRange> </observation> </component> </ organizer> </entry> <entry> <organizer moodCode="EVN " classCode="BATTERY"> <templateId root=" [id number]" /> <id nullFlavor="NA" /> <code codeSystem="local" code="GLUMON" displayName="GLUCOSE (POC)" /> <statusCode code=" completed"/> <component> <observation moodCode=& quot;EVN" classCode="OBS"> <templateId root=" [id number]" /> <id nullFlavor="NA& quot; /> <code codeSystem="local" code="GLUMON& quot; displayName="GLUCOSE (POC)" /> <statusCode code=& quot;completed" /> <effectiveTime value="314522824518& quot; /> <value unit="mg/dL" xsi:type="PQ" value="131" /> <interpretationCode codeSystem=" local" code="*" /> <referenceRange> <observationRange> <text>70-99</text> </observationRange> </referenceRange> </ observation> </component> </organizer> </entry> & lt;entry> <organizer moodCode="EVN" classCode="BATTERY& quot;> <templateId root="2.16.840.1.871982.10.20.22.4.1" /& gt; <id nullFlavor="NA" /> <code codeSystem=" local" code="GLUMON" displayName="GLUCOSE (POC)" /> <statusCode code="completed" /> <component> <observation moodCode="EVN" classCode="OBS"> <templateId root="2.16.840.1.237555.10.20.22.4.2" /> <id nullFlavor="NA"/> <code codeSystem=" local" code="GLUMON" displayName="GLUCOSE (POC)" /> <statusCode code="completed" /> < effectiveTime value="054087611406" /> <value unit=&quot ;mg/dL" xsi:type="PQ" value="131" /> < interpretationCode codeSystem="local" code="*" /> <referenceRange> <observationRange> < text>70-99</text> </observationRange> </ referenceRange> </observation> </component> </ organizer> </entry> <entry> <organizer moodCode="EVN " classCode="BATTERY"> <templateId root=" 2.16.840.1.724534.10.20.22.4.1" /> <id nullFlavor="NA&quot ; /> <code codeSystem="local" code="GLUMON" displayName="GLUCOSE (POC)" /> <statusCode code=" completed" /> <component> <observation moodCode=& quot;EVN" classCode="OBS"> <templateId root=" 2.16.840.1.610926.10.20.22.4.2" /> <id nullFlavor="NA& quot; /> <code codeSystem="local" code="GLUMON& quot; displayName="GLUCOSE (POC)" /> <statusCode code=" completed" /> <effectiveTime value="691323845931" /> <value unit="mg/dL" xsi:type="PQ" value=& quot;136" /> <interpretationCode codeSystem="local&quot ; code="*" /> <referenceRange> < observationRange> <text>70-99</text> < /observationRange> </referenceRange> </observation& gt; </component> </organizer> </entry> <entry&gt ; <organizer moodCode="EVN" classCode="BATTERY"> <templateId root="2.16.840.1.047839.10.20.22.4.1" /> & lt;id nullFlavor="NA" /> <code codeSystem="local&quot ; code="GLUMON" displayName="GLUCOSE (POC)" /> < statusCode code="completed" /> <component> < observation moodCode="EVN" classCode="OBS"> < templateId root="2.16.840.1.743255.10.20.22.4.2" /> < id nullFlavor="NA" /> <code codeSystem="local&quot ; code="GLUMON" displayName="GLUCOSE (POC)" /> & lt;statusCode code="completed" /> <effectiveTime value= "825115419850" /> <value unit="mg/dL" xsi: type="PQ" value="136" /> <interpretationCode codeSystem="local" code="*" /> < referenceRange> <observationRange> <text> 70-99</text> </observationRange> </ referenceRange> </observation> </component> </ organizer> </entry> <entry> <organizer moodCode="EVN " classCode="BATTERY"> <templateId root=" 2.16.840.1.811807.10.20.22.4.1" /> <id nullFlavor="NA&quot ; /> <code codeSystem="local" code="K" displayName="POTASSIUM" /> <statusCode code="completed " /> <component> <observation moodCode="EVN&quot ; classCode="OBS"> <templateId root=" 2.16.840.1.144495.10..22.4.2" /> <id nullFlavor="NA& quot; /> <code codeSystem="local" code="K" displayName="POTASSIUM" /> <statusCode code=" completed" /> <effectiveTime value="747364115643" /> <value unit="mmol/L" xsi:type="PQ" value=& quot;4.4" /> <referenceRange> < observationRange> <text>3.5-5.3</text> & lt;/observationRange></referenceRange> </observation> </component> </organizer> </entry> <entry> &lt ;organizer moodCode="EVN" classCode="BATTERY"> < templateId root="2.16.840.1.232878.10.20.22.4.1" /> <id nullFlavor="NA" /> <code codeSystem="local" code= "K" displayName="POTASSIUM" /> <statusCode code=& quot;completed" /> <component> <observation moodCode=& quot;EVN" classCode="OBS"> <templateId root=" 2.16.840.1.306363.10..22.4.2" /> <id nullFlavor="NA& quot; /> <code codeSystem="local" code="K" displayName="POTASSIUM" /> <statusCode code=" completed" /> <effectiveTime value="157814049489" /> <value unit="mmol/L" xsi:type="PQ" value=& quot;4.4" /> <referenceRange> < observationRange> <text>3.5-5.3</text> & lt;/observationRange> </referenceRange> </observation& gt; </component> </organizer> </entry> <entry&gt ; <organizer moodCode="EVN" classCode="BATTERY"> <templateId root="2.16.840.1.702374.10.20.22.4.1" /> & lt;id nullFlavor="NA" /><code codeSystem="local" code= "ABG" displayName="ARTERIAL BLOOD GAS" /> < statusCode code="completed" /> <component> < observation moodCode="EVN" classCode="OBS"> < templateId root="2.16.840.1.024923.10..22.4.2" /> < id nullFlavor="NA" /> <code codeSystem="local&quot ; code="JAIME" displayName="ABG BASE EXCESS" /> < statusCode code="completed" /> <effectiveTime value=& quot;844464531337" /> <value unit="meq/L" xsi:type ="PQ" value="-0.8" /> <referenceRange> <observationRange> <text>-3.0-3.0</text&gt ; </observationRange> </referenceRange> </ observation> </component> <component> < observation moodCode="EVN" classCode="OBS"> < templateId root="2.16.840.1.492196.10.20.22.4.2" /> < id nullFlavor="NA" /> <code codeSystem="local&quot ; code="FIO2A" displayName="ABG FIO2" /> < statusCode code="completed" /> <effectiveTime value=& quot;020201501158" /> <value unit="%" xsi: type="PQ" value="40" /> <referenceRange> <observationRange> <text /></observationRange&gt ; </referenceRange> </observation> </ component> <component> <observation moodCode="EVN& quot; classCode="OBS"> <templateId root=" 2.16.840.1.614350.10.20.22.4.2" /> <id nullFlavor="NA& quot; /> <code codeSystem="local" code="HCO3A&quot ; displayName="ABG BICARBONATE" /> <statusCode code=& quot;completed"/> <effectiveTime value="958711931171& quot; /> <value unit="meq/L" xsi:type="PQ" value="23.5" /> <referenceRange> < observationRange> <text>23.0-28.0</text> </observationRange> </referenceRange> </ observation> </component> <component> < observation moodCode="EVN" classCode="OBS"> < templateId root="2.16.840.1.758781.10..22.4.2" /> < id nullFlavor="NA" /> <code codeSystem="local&quot ; code="PCO2A" displayName="ABG PCO2" /> < statusCode code="completed" /> <effectiveTime value=& quot;095359153064" /> <value unit="mmHg" xsi:type= "PQ" value="38" /> <referenceRange> <observationRange> <text>34-45</text> </observationRange> </referenceRange> </ observation> </component> <component> < observation moodCode="EVN" classCode="OBS"> < templateId root="2.16.840.1.888533.10..22.4.2" /> < id nullFlavor="NA" /> <code codeSystem="local" code="PEEPA" displayName="ABG PEEP" /> < statusCode code="completed" /> <effectiveTime value=& quot;893612449646" /> <value unit="CM" xsi:type=& quot;PQ" value="5" /> <referenceRange> <observationRange> <text /> </ observationRange> </referenceRange> </observation&gt ; </component> <component> <observation moodCode ="EVN" classCode="OBS"> <templateId root=& quot;2.16.840.1.449236.10.20.22.4.2" /> <id nullFlavor=&quot ;NA" /> <code codeSystem="local" code="PHAX& quot; displayName="ABG PH" /> <statusCode code=" completed" /> <effectiveTime value="007394247187" /> <value unit="" xsi:type="PQ" value=" 7.42" /> <referenceRange> <observationRange > <text>7.35-7.45</text> </ observationRange> </referenceRange> </observation&gt ; </component> <component> <observation moodCode ="EVN" classCode="OBS"> <templateId root=& quot;2.16.840.1.997074.10.20.22.4.2" /> <id nullFlavor=&quot ;NA" /> <code codeSystem="local" code="PO2A& quot; displayName="ABG PO2" /> <statusCode code=" completed" /> <effectiveTime value="458549175444" /> <value unit="mmHg" xsi:type="PQ" value="168& quot; /> <interpretationCode codeSystem="local" code=& quot;*" /> <referenceRange> < observationRange> <text>75-100</text> < /observationRange> </referenceRange> </observation& gt; </component> <component> <observation moodCode="EVN" classCode="OBS"> <templateId root="2.16.840.1.789826.10.20.22.4.2" /> <id nullFlavor ="NA" /> <code codeSystem="local" code=" PSABG" displayName="ABG PRESSURE SUPPORT" /> < statusCode code="completed" /> <effectiveTime value=& quot;374932498762" /> <value unit="CM" xsi:type=& quot;PQ" value="10" /> <referenceRange> <observationRange> <text /> </ observationRange> </referenceRange> </observation&gt ; </component> <component> <observation moodCode ="EVN" classCode="OBS"> <templateId root=& quot;2..840.1.419424.10.20.22.4.2" /> <id nullFlavor=&quot ;NA" /> <code codeSystem="local" code="SATA& quot; displayName="ABG O2 SATURATION" /> <statusCode code="completed" /> <effectiveTime value=" 301329998864" /> <value unit="%" xsi:type=" PQ" value="99" /><referenceRange> < observationRange> <text>93-100</text> &lt ;/observationRange> </referenceRange> </observation& gt; </component> </organizer> </entry> <entry> <organizer moodCode="EVN" classCode="BATTERY"> <templateId root="2.16.840.1.065095.10.20.22.4.1" /> &lt ;id nullFlavor="NA" /> <code codeSystem="local" code="ABG" displayName="ARTERIAL BLOOD GAS" /> < statusCodecode="completed" /> <component> < observation moodCode="EVN" classCode="OBS"> < templateId root="2.16.840.1.038557.10.20.22.4.2" /> < id nullFlavor="NA" /> <code codeSystem="local&quot ; code="JAIME" displayName="ABG BASE EXCESS" /> & lt;statusCode code="completed" /> <effectiveTime value= "652592778818" /> <value unit="meq/L" xsi: type="PQ" value="-0.8" /> <referenceRange&gt ; <observationRange> <text>-3.0-3.0</text > </observationRange> </referenceRange> & lt;/observation></component> <component> < observation moodCode="EVN" classCode="OBS"> < templateId root="2.16.840.1.888905.10.20.22.4.2" /> <id nullFlavor="NA" /> <code codeSystem="local" code="FIO2A" displayName="ABG FIO2" /> < statusCode code="completed" /> <effectiveTime value=& quot;869253068499" /> <value unit="%" xsi: type="PQ" value="40" /> <referenceRange> <observationRange> <text /> </ observationRange> </referenceRange> </observation> </component> <component> <observation moodCode= "EVN" classCode="OBS"> <templateId root=&quot ;2.16.840.1.132728.10.20.22.4.2" /> <id nullFlavor="NA& quot; /> <code codeSystem="local" code="HCO3A&quot ; displayName="ABG BICARBONATE" /> <statusCode code=& quot;completed" /> <effectiveTime value="899830353910& quot; /> <value unit="meq/L" xsi:type="PQ" value="23.5" /> <referenceRange> < observationRange> <text>23.0-28.0</text> </observationRange> </referenceRange> </ observation> </component> <component> <observation moodCode="EVN" classCode="OBS"> <templateId root="2.16.840.1.493799.10.20.22.4.2" /> <id nullFlavor ="NA" /> <code codeSystem="local" code=" PCO2A" displayName="ABG PCO2" /> <statusCode code= "completed" /> <effectiveTime value="167001429969& quot; /> <value unit="mmHg" xsi:type="PQ" value="38" /> <referenceRange> < observationRange> <text>34-45</text> < /observationRange> </referenceRange> </observation> </component> <component> <observation moodCode=& quot;EVN" classCode="OBS"> <templateId root=" 2.16.840.1.059029.10.20.22.4.2" /> <id nullFlavor="NA& quot; /> <code codeSystem="local" code="PEEPA&quot ; displayName="ABG PEEP" /> <statusCode code=" completed" /> <effectiveTime value="957763235240" /> <value unit="CM" xsi:type="PQ" value=" 5" /> <referenceRange> <observationRange&gt ; <text /> </observationRange> < /referenceRange> </observation> </component> &lt ;component> <observation moodCode="EVN" classCode=" OBS"> <templateId root="2.840.1.129914.10.20.22.4.2& quot; /> <id nullFlavor="NA" /> <code codeSystem="local" code="PHAX" displayName="ABG PH&quot ; /> <statusCode code="completed" /> < effectiveTime value="276714423948" /> <value unit=&quot ;" xsi:type="PQ" value="7.42" /> < referenceRange> <observationRange> <text> 7.35-7.45</text> </observationRange> </ referenceRange> </observation> </component> < component> <observation moodCode="EVN" classCode=" OBS"> <templateId root="216.840.1.358273.10.20.22.4.2& quot; /> <id nullFlavor="NA" /> <code codeSystem="local" code="PO2A" displayName="ABG PO2& quot; /> <statusCode code="completed" /> & lt;effectiveTime value="619117638474" /> <value unit=& quot;mmHg" xsi:type="PQ" value="168" /> &lt ;interpretationCode codeSystem="local" code="*"/> <referenceRange> <observationRange> < text>75-100</text> </observationRange> </ referenceRange> </observation> </component> < component> <observation moodCode="EVN" classCode=" OBS"> <templateId root="2.16.840.1.612531.10.20.22.4.2& quot; /> <id nullFlavor="NA" /> <code codeSystem="local" code="PSABG" displayName="ABG PRESSURE SUPPORT" /> <statusCode code="completed" /> <effectiveTime value="119764124048" /> & lt;value unit="CM" xsi:type="PQ" value="10" /> <referenceRange> <observationRange> < text /> </observationRange> </referenceRange&gt ; </observation> </component> <component> <observation moodCode="EVN" classCode="OBS"> <templateId root="2.16.840.1.317028.10.20.22.4.2" /> <id nullFlavor="NA" /> <code codeSystem=" local" code="SATA" displayName="ABG O2 SATURATION" /&gt ; <statusCode code="completed" /> < effectiveTime value="767461406067" /> <value unit=&quot ;%" xsi:type="PQ" value="99" /> &lt ;referenceRange> <observationRange> <text>93- 100</text> </observationRange> </ referenceRange> </observation> </component></ organizer> </entry> <entry> <organizer moodCode="EVN " classCode="BATTERY"> <templateId root=" 2.16.840.1.491002.10.20.22.4.1" /> <id nullFlavor="NA" /& gt; <code codeSystem="local" code="GLUMON" displayName="GLUCOSE (POC)" /> <statusCode code=" completed" /> <component> <observation moodCode=& quot;EVN" classCode="OBS"> <templateId root=" 2.16.840.1.864617.10.20.22.4.2" /> <id nullFlavor="NA& quot; /> <code codeSystem="local" code="GLUMON& quot; displayName="GLUCOSE (POC)" /> <statusCode code=& quot;completed" /> <effectiveTime value="471873734159& quot; /> <value unit="mg/dL" xsi:type="PQ" value="148" /> <interpretationCode codeSystem=" local" code="*" /> <referenceRange> <observationRange> <text>70-99</text> </observationRange> </referenceRange> </ observation> </component> </organizer> </entry> & lt;entry> <organizer moodCode="EVN" classCode="BATTERY& quot;> <templateId root="2.16.840.1.475241.10.20.22.4.1" /& gt; <id nullFlavor="NA" /> <code codeSystem=" local" code="GLUMON" displayName="GLUCOSE (POC)" /> <statusCode code="completed" /> <component> <observation moodCode="EVN" classCode="OBS"> <templateId root="2.16.840.1.174216.10.20.22.4.2" /> <id nullFlavor="NA" /> <code codeSystem=" local" code="GLUMON" displayName="GLUCOSE(POC)" /> <statusCode code="completed" /> < effectiveTime value="727074692156" /> <value unit=&quot ;mg/dL" xsi:type="PQ" value="148" /> < interpretationCode codeSystem="local" code="*" /> <referenceRange> <observationRange> < text>70-99</text> </observationRange> </ referenceRange> </observation> </component> </ organizer> </entry> <entry> <organizer moodCode="EVN& quot; classCode="BATTERY"> <templateId root=" 2.16.840.1.754847.10.20.22.4.1" /> <id nullFlavor="NA&quot ; /> <code codeSystem="local" code="GLUMON" displayName="GLUCOSE (POC)" /> <statusCode code=" completed" /> <component> <observationmoodCode=& quot;EVN" classCode="OBS"> <templateId root=" 2.16.840.1.873016.10.20.22.4.2" /> <id nullFlavor="NA& quot; /> <code codeSystem="local" code="GLUMON& quot; displayName="GLUCOSE (POC)" /> <statusCode code=" completed" /> <effectiveTime value="790511621476" /> <value unit="mg/dL" xsi:type="PQ" value=& quot;184"/> <interpretationCode codeSystem="local&quot ; code="*" /><referenceRange> <observationRange > <text>70-99</text> </ observationRange> </referenceRange> </observation&gt ; </component> </organizer> </entry> <entry> <organizer moodCode="EVN" classCode="BATTERY"> & lt;templateId root="2.16.840.1.524874.10.20.22.4.1" /> <id nullFlavor="NA" /> <code codeSystem="local" code= "GLUMON" displayName="GLUCOSE (POC)" /> < statusCode code="completed" /> <component> < observation moodCode="EVN"classCode="OBS"> < templateId root="2.16.840.1.109161.10.20.22.4.2" /> < id nullFlavor="NA" /> <code codeSystem="local&quot ; code="GLUMON" displayName="GLUCOSE (POC)" /> & lt;statusCode code="completed" /> <effectiveTime value= "836159075122" /> <value unit="mg/dL" xsi: type="PQ" value="184" /> <interpretationCode codeSystem="local" code="*" /> < referenceRange> <observationRange> <text>70- 99</text> </observationRange> </ referenceRange> </observation> </component> </ organizer> </entry> <entry> <organizer moodCode="EVN " classCode="BATTERY"> <templateId root=" 2.16.840.1.435004.10.20.22.4.1" /> <id nullFlavor="NA" / > <code codeSystem="local" code="GLUMON" displayName="GLUCOSE (POC)" /> <statusCode code=" completed" /> <component> <observation moodCode=& quot;EVN" classCode="OBS"> <templateId root=" 2.16.840.1.485000.10.20.22.4.2" /> <id nullFlavor="NA& quot; /> <code codeSystem="local" code="GLUMON& quot;displayName="GLUCOSE (POC)" /> <statusCode code=& quot;completed" /> <effectiveTime value="921534059047& quot; /> <value unit="mg/dL" xsi:type="PQ" value="167" /> <interpretationCode codeSystem=" local" code="*" /> <referenceRange> <observationRange> <text>70-99</text> </observationRange> </referenceRange> </ observation> </component> </organizer> </entry> & lt;entry> <organizer moodCode="EVN" classCode="BATTERY& quot;> <templateId root="2.16.840.1.596377.10.20.22.4.1" /& gt; <id nullFlavor="NA" /> <code codeSystem=" local" code="GLUMON" displayName="GLUCOSE (POC)" /> <statusCode code="completed" /> <component> <observation moodCode="EVN" classCode="OBS"> <templateId root="2.16.840.1.161834.10.20.22.4.2" /> <id nullFlavor="NA" /> <code codeSystem=" local" code="GLUMON" displayName="GLUCOSE (POC)" /> <statusCode code="completed" /> < effectiveTime value="801976270113" /> <value unit=&quot ;mg/dL" xsi:type="PQ" value="167" /> < interpretationCode codeSystem="local" code="*" /> <referenceRange> <observationRange> < text>70-99</text> </observationRange> </ referenceRange> </observation> </component> </ organizer> </entry> <entry> <organizer moodCode="EVN " classCode="BATTERY"> <templateId root=" 2.16.840.1.742989.10.20.22.4.1" /> <id nullFlavor="NA&quot ; /> <code codeSystem="local" code="GLUMON" displayName="GLUCOSE (POC)" /> <statusCode code=" completed" /> <component> <observation moodCode=& quot;EVN" classCode="OBS"> <templateId root=" 2.16.840.1.193765.10.20.22.4.2" /> <id nullFlavor="NA& quot; /> <code codeSystem="local" code="GLUMON& quot; displayName="GLUCOSE (POC)" /> <statusCode code=" completed" /> <effectiveTime value="172580088679" /> <value unit="mg/dL" xsi:type="PQ" value=& quot;186" /> <interpretationCode codeSystem="local&quot ; code="*" /> <referenceRange> < observationRange> <text>70-99</text> < /observationRange> </referenceRange> </observation& gt; </component> </organizer> </entry> <entry> <organizer moodCode="EVN" classCode="BATTERY"> <templateId root="2.16.840.1.463136.10.20.22.4.1" /> &lt ;id nullFlavor="NA" /> <code codeSystem="local" code="GLUMON" displayName="GLUCOSE (POC)" /> < statusCode code="completed" /> <component> < observation moodCode="EVN" classCode="OBS"> < templateId root="2.16.840.1.958331.10.20.22.4.2" /> < id nullFlavor="NA" /> <code codeSystem="local&quot ; code="GLUMON" displayName="GLUCOSE (POC)" /> & lt;statusCode code="completed" /> <effectiveTime value= "368594454832" /> <value unit="mg/dL" xsi: type="PQ" value="186" /> <interpretationCode codeSystem="local" code="*" /> < referenceRange> <observationRange> <text>70 -99</text> </observationRange> </ referenceRange> </observation> </component> </ organizer> </entry> <entry> <organizer moodCode="EVN " classCode="BATTERY"> <templateId root=" 2.16.840.1.510825.10.20.22.4.1" /> <id nullFlavor="NA" /> <code codeSystem="local" code="GLUMON" displayName="GLUCOSE (POC)" /> <statusCode code=" completed"/> <component> <observation moodCode=& quot;EVN" classCode="OBS"> <templateId root=" 2.16.840.1.923162.10.20.22.4.2" /> <id nullFlavor="NA& quot; /> <code codeSystem="local" code="GLUMON& quot; displayName="GLUCOSE (POC)" /> <statusCode code=& quot;completed" /> <effectiveTime value="363371175027& quot; /> <value unit="mg/dL" xsi:type="PQ" value="207" /> <interpretationCode codeSystem=" local" code="*" /> <referenceRange> <observationRange> <text>70-99</text> </observationRange> </referenceRange> </ observation> </component> </organizer> </entry> & lt;entry> <organizer moodCode="EVN" classCode="BATTERY& quot;> <templateId root="2.16.840.1.355009.10.20.22.4.1" /& gt; <id nullFlavor="NA" /> <code codeSystem=" local" code="GLUMON" displayName="GLUCOSE (POC)" /> <statusCode code="completed" /> <component> <observation moodCode="EVN" classCode="OBS"> <templateId root="2.16.840.1.151369.10.20.22.4.2" /> <id nullFlavor="NA"/> <code codeSystem=" local" code="GLUMON" displayName="GLUCOSE (POC)" /> <statusCode code="completed" /> < effectiveTime value="899603577003" /> <value unit=&quot ;mg/dL" xsi:type="PQ" value="207" /> < interpretationCode codeSystem="local" code="*" /> <referenceRange> <observationRange> < text>70-99</text> </observationRange> </ referenceRange> </observation> </component> </ organizer> </entry> <entry> <organizer moodCode="EVN " classCode="BATTERY"> <templateId root=" 2.16.840.1.833902.10.20.22.4.1" /> <id nullFlavor="NA&quot ; /> <code codeSystem="local" code="GLUMON" displayName="GLUCOSE (POC)" /> <statusCode code=" completed" /> <component> <observation moodCode=& quot;EVN" classCode="OBS"> <templateId root=" 2.16.840.1.752615.10.20.22.4.2" /> <id nullFlavor="NA& quot; /> <code codeSystem="local" code="GLUMON& quot; displayName="GLUCOSE (POC)" /> <statusCode code=" completed" /> <effectiveTime value="504552278171" /> <value unit="mg/dL" xsi:type="PQ" value=& quot;212" /> <interpretationCode codeSystem="local&quot ; code="*" /> <referenceRange> < observationRange> <text>70-99</text> < /observationRange> </referenceRange> </observation& gt; </component> </organizer> </entry> <entry&gt ; <organizer moodCode="EVN" classCode="BATTERY"> <templateId root="2.16.840.1.881892.10.20.22.4.1" /> & lt;id nullFlavor="NA" /> <code codeSystem="local&quot ; code="GLUMON" displayName="GLUCOSE (POC)" /> < statusCode code="completed" /> <component> < observation moodCode="EVN" classCode="OBS"> < templateId root="2.16.840.1.034775.10.20.22.4.2" /> < id nullFlavor="NA" /> <code codeSystem="local&quot ; code="GLUMON" displayName="GLUCOSE (POC)" /> & lt;statusCode code="completed" /> <effectiveTime value= "697776118002" /> <value unit="mg/dL" xsi: type="PQ" value="212" /> <interpretationCode codeSystem="local" code="*" /> < referenceRange> <observationRange> <text> 70-99</text> </observationRange> </ referenceRange> </observation> </component> </ organizer> </entry> <entry> <organizer moodCode="EVN " classCode="BATTERY"> <templateId root=" 2.16.840.1.625283.10.20.22.4.1" /> <id nullFlavor="NA&quot ; /> <code codeSystem="local" code="GLUMON" displayName="GLUCOSE (POC)" /> <statusCode code=" completed" /> <component> <observation moodCode=& quot;EVN" classCode="OBS"> <templateId root=" 2.16.840.1.002614.10.20.22.4.2" /> <idnullFlavor="NA& quot; /> <code codeSystem="local" code="GLUMON& quot; displayName="GLUCOSE (POC)" /> <statusCode code=& quot;completed" /> <effectiveTime value="192311993087& quot; /> <value unit="mg/dL" xsi:type="PQ" value="187" /> <interpretationCode codeSystem=" local" code="*" /> <referenceRange> <observationRange> <text>70-99</text> </observationRange></referenceRange> </observation> </component> </organizer> </entry> <entry> & lt;organizer moodCode="EVN" classCode="BATTERY"> &lt ;templateId root="[id number]" /> <id nullFlavor="NA" /> <code codeSystem="local" code= "GLUMON" displayName="GLUCOSE (POC)" /> < statusCode code="completed" /> <component> < observation moodCode="EVN" classCode="OBS"> < templateId root="[id number]" /> < id nullFlavor="NA" /> <code codeSystem="local&quot ; code="GLUMON" displayName="GLUCOSE (POC)" /> & lt;statusCode code="completed" /> <effectiveTime value= "[id number]" /> <value unit="mg/dL" xsi: type="PQ" value="187" /> <interpretationCode codeSystem="local" code="*" /> < referenceRange> <observationRange> <text> 70-99</text> </observationRange> </ referenceRange> </observation> </component> </ organizer> </entry> <entry> <organizer moodCode="EVN " classCode="BATTERY"> <templateId root=" 2.16.840.1.318982.10.20.22.4.1" /> <id nullFlavor="NA&quot ; /><code codeSystem="local" code="ABG" displayName=& quot;ARTERIAL BLOOD GAS" /> <statusCode code="completed& quot; /> <component> <observation moodCode="EVN& quot; classCode="OBS"> <templateId root=" 2.16.840.1.236500.10.20.22.4.2" /> <id nullFlavor="NA& quot; /> <code codeSystem="local" code="JAIME" displayName="ABG BASE EXCESS" /> <statusCode code=" completed" /> <effectiveTime value="577580519903" /> <value unit="meq/L" xsi:type="PQ" value=& quot;-8.9" /> <interpretationCode codeSystem="local& quot; code="*" /> <referenceRange> < observationRange> <text>-3.0-3.0</text> & lt;/observationRange> </referenceRange> </ observation> </component> <component> < observation moodCode="EVN" classCode="OBS"> < templateId root="2.16.840.1.444493.10.20.22.4.2" /> < id nullFlavor="NA" /> <code codeSystem="local&quot ; code="JASON" displayName="ABG DEVICE" /> < statusCode code="completed" /> <effectiveTime value=& quot;362755169990" /> <value unit="" xsi:type=& quot;PQ" value="NC" /> <referenceRange> <observationRange> <text /> </ observationRange> </referenceRange> </observation&gt ; </component> <component> <observation moodCode ="EVN" classCode="OBS"> <templateId root=& quot;2.16.840.1.929372.10.20.22.4.2" /> <id nullFlavor=&quot ;NA" /> <code codeSystem="local" code="HCO3A& quot; displayName="ABG BICARBONATE" /> <statusCode code ="completed" /> <effectiveTime value="068515876219 " /> <value unit="meq/L" xsi:type="PQ" value="16.1" /> <interpretationCode codeSystem=" local" code="*" /> <referenceRange> <observationRange> <text>23.0-28.0</text> < /observationRange> </referenceRange> </observation& gt; </component> <component> <observation moodCode="EVN" classCode="OBS"> <templateId root="2.16.840.1.674235.10.20.22.4.2" /> <id nullFlavor ="NA" /> <code codeSystem="local" code=" L/MA" displayName="ABG L/M" /> <statusCode code=" completed" /> <effectiveTime value="417279867801" /> <value unit="" xsi:type="PQ" value=" 2.0" /> <referenceRange> <observationRange& gt; <text /> </observationRange> </ referenceRange> </observation> </component> < component> <observation moodCode="EVN" classCode=" OBS"> <templateId root="2.16.840.1.464866.10.20.22.4.2& quot; /> <id nullFlavor="NA" /> <code codeSystem ="local" code="PCO2A" displayName="ABG PCO2" /&gt ; <statusCode code="completed" /> < effectiveTime value="750786580894" /> <value unit=&quot ;mmHg" xsi:type="PQ" value="32" /> < interpretationCode codeSystem="local" code="*" /> <referenceRange> <observationRange> < text>34-45</text> </observationRange> </ referenceRange> </observation> </component> < component> <observation moodCode="EVN" classCode="OBS& quot;> <templateIdroot="2.16.840.1.757630.10.20.22.4.2&quot ; /> <id nullFlavor="NA" /> <code codeSystem="local" code="PHAX" displayName="ABG PH&quot ;/> <statusCode code="completed" /> < effectiveTime value="768093777794" /> <value unit=&quot ;" xsi:type="PQ" value="7.32" /> < interpretationCode codeSystem="local" code="*" /> <referenceRange> <observationRange> < text>7.35-7.45</text> </observationRange> &lt ;/referenceRange> </observation> </component> & lt;component> <observation moodCode="EVN" classCode=&quot ;OBS"> <templateId root="2.16.840.1.850594.10.20.22.4.2 " /> <id nullFlavor="NA" /> <code codeSystem="local" code="PO2A" displayName="ABG PO2& quot; /> <statusCode code="completed" /> & lt;effectiveTime value="680077941903" /> <value unit=& quot;mmHg" xsi:type="PQ" value="121" /> &lt ;interpretationCode codeSystem="local" code="*" /> <referenceRange> <observationRange> <text& gt;75-100</text> </observationRange> </ referenceRange> </observation> </component> < component> <observation moodCode="EVN" classCode=" OBS"> <templateId root="2..840.1.684787.10.20.22.4.2&quot ; /> <id nullFlavor="NA" /> <code codeSystem="local" code="SATA" displayName="ABG O2 SATURATION" /> <statusCode code="completed" /> <effectiveTime value="473708692654" /> <value unit ="%" xsi:type="PQ" value="99" /> <referenceRange> <observationRange> < text>93-100</text> </observationRange> </ referenceRange> </observation> </component> </ organizer> </entry> <entry> <organizer moodCode="EVN " classCode="BATTERY"> <templateId root=" 2.840.1.237642.10.20.22.4.1" /> <id nullFlavor="NA&quot ; /> <code codeSystem="local" code="CBC" displayName="CBC" /> <statusCode code="completed&quot ; /> <component> <observation moodCode="EVN" classCode="OBS"> <templateId root=" 2.840.1.381701.10.20.22.4.2" /> <id nullFlavor="NA& quot; /> <code codeSystem="local" code="MCH" displayName="MEAN CELL HGB" /> <statusCode code=" completed" /> <effectiveTime value="986307765340" /> <value unit="pg" xsi:type="PQ" value=&quot ;32.3" /> <referenceRange> < observationRange> <text>27.0-33.0</text> </ observationRange> </referenceRange> </observation&gt ; </component> <component> <observation moodCode ="EVN" classCode="OBS"> <templateId root=& quot;2.16.840.1.672859.10.20.22.4.2" /> <id nullFlavor=&quot ;NA" /> <code codeSystem="local" code="[facility]& quot; displayName="MEAN CELL HGB CONCENTRATION" /> < statusCode code="completed" /> <effectiveTime value=& quot;717322433295" /> <value unit="g/dl" xsi:type= "PQ" value="33.9" /> <referenceRange> <observationRange> <text>32.0-36.0</text> </observationRange> </referenceRange> </ observation> </component> <component> < observation moodCode="EVN" classCode="OBS"> < templateId root="2.16.840.1.533488.10.20.22.4.2" /> < id nullFlavor="NA" /> <code codeSystem="local&quot ; code="MCV" displayName="MEAN CELL VOLUME" /> &lt ;statusCode code="completed" /> <effectiveTime value=& quot;982056025305" /> <value unit="fl" xsi:type=& quot;PQ" value="95.2" /> <referenceRange> <observationRange> <text>80.0-100.0</text&gt ; </observationRange> </referenceRange> </ observation> </component> <component> < observation moodCode="EVN" classCode="OBS"> < templateId root="2.16.840.1.139079.10.20.22.4.2" /> < id nullFlavor="NA" /> <code codeSystem="local&quot ; code="RBC" displayName="RED BLOOD CELL" /> &lt ;statusCode code="completed" /> <effectiveTime value=& quot;492715143816" /> <value unit="m/cumm" xsi: type="PQ" value="2.94" /> <interpretationCode codeSystem="local" code="*" /> < referenceRange> <observationRange> <text> 4.00-6.00</text> </observationRange> </ referenceRange> </observation></component> < component> <observation moodCode="EVN" classCode=" OBS"> <templateId root="2.16.840.1.744776.10.20.22.4.2& quot; /> <id nullFlavor="NA" /> <code codeSystem="local" code="RDW" displayName="RED CELL DISTRIBUTION WIDTH" /> <statusCode code="completed&quot ; /> <effectiveTime value="139491863936" /> <value unit="%" xsi:type="PQ" value="12.4& quot; /> <referenceRange> <observationRange> <text>11.0-15.6</text> </ observationRange> </referenceRange> </observation&gt ; </component> <component> <observation moodCode=& quot;EVN" classCode="OBS"> <templateId root=" 2.16.840.1.980898.10.20.22.4.2" /> <id nullFlavor="NA& quot; /> <code codeSystem="local" code="WBC" displayName="WHITE BLOOD CELL" /> <statusCode code=& quot;completed" /> <effectiveTime value="623407530607& quot; /> <value unit="k/cumm" xsi:type="PQ" value="14.7" /> <interpretationCode codeSystem=" local" code="*" /> <referenceRange> < observationRange> <text>5.0-10.0</text> & lt;/observationRange> </referenceRange> </ observation> </component><component> <observation moodCode="EVN" classCode="OBS"> <templateId root=& quot;2.16.840.1.161503.10.20.22.4.2" /> <id nullFlavor=&quot ;NA" /> <code codeSystem="local" code="HGBT& quot; displayName="HEMOGLOBIN" /> <statusCode code=& quot;completed" /> <effectiveTime value="853940790843& quot; /> <value unit="gm/dL" xsi:type="PQ" value="9.5" /> <interpretationCode codeSystem=" local" code="*" /> <referenceRange> <observationRange> <text>14.0-18.0</text> &lt ;/observationRange> </referenceRange> </observation& gt; </component> <component> <observation moodCode="EVN" classCode="OBS"> <templateId root="2.16.840.1.684866.10.20.22.4.2" /> <id nullFlavor ="NA" /> <code codeSystem="local" code=" HCTT" displayName="HEMATOCRIT" /> <statusCode code=& quot;completed" /> <effectiveTime value="354164133558& quot; /> <value unit="%" xsi:type="PQ&quot ; value="28.0" /> <interpretationCode codeSystem=" local" code="*" /> <referenceRange> & lt;observationRange> <text>40.0-54.0</text> </observationRange> </referenceRange> </ observation> </component> <component> < observation moodCode="EVN" classCode="OBS"> < templateId root="2.16.840.1.493587.10.20.22.4.2" /> < id nullFlavor="NA" /> <code codeSystem="local&quot ; code="PLT" displayName="PLATELET COUNT" /> &lt ;statusCode code="completed" /> <effectiveTime value=& quot;968498997530" /><value unit="k/cumm" xsi:type="PQ " value="102" /> <interpretationCode codeSystem=& quot;local" code="*" /> <referenceRange> <observationRange> <text>150-450</text> </observationRange> </referenceRange> </ observation> </component> </organizer> </entry> & lt;entry> <organizer moodCode="EVN" classCode="BATTERY& quot;> <templateId root="2.16.840.1.286053.10.20.22.4.1" /& gt; <id nullFlavor="NA" /> <code codeSystem=" local" code="CAION" displayName="CALCIUM IONIZED" /&gt ; <statusCode code="completed" /> <component> <observation moodCode="EVN" classCode="OBS"> <templateId root="2.16.840.1.497435.10.20.22.4.2" /> <id nullFlavor="NA" /> <code codeSystem=" local" code="CAION" displayName="CALCIUM IONIZED" /&gt ; <statusCode code="completed" /> < effectiveTime value="930029936987" /> <value unit=&quot ;mg/dL" xsi:type="PQ" value="4.5" /> < referenceRange> <observationRange> <text>4.5- 5.3</text> </observationRange> </ referenceRange> </observation> </component> </ organizer> </entry> <entry> <organizer moodCode="EVN " classCode="BATTERY"> <templateId root=" 2.16.840.1.874990.10.20.22.4.1" /> <id nullFlavor="NA" / > <code codeSystem="local" code="METAB" displayName="METABOLIC PANEL, BASIC" /> <statusCode code=& quot;completed" /> <component> <observation moodCode="EVN" classCode="OBS"> <templateId root="2.16.840.1.700925.10.20.22.4.2" /> <id nullFlavor ="NA" /> <code codeSystem="local" code=" K" displayName="POTASSIUM" /> <statusCode code=& quot;completed" /> <effectiveTime value="329666476194& quot; /> <value unit="mmol/L" xsi:type="PQ" value="2.4" /> <interpretationCode codeSystem=" local" code="" /> <referenceRange> <observationRange> <text>3.5-5.3</text> </observationRange> </referenceRange> </observation& gt; </component> <component> <observation moodCode ="EVN" classCode="OBS"> <templateIdroot=&quot ;2.16.840.1.114635.10..22.4.2" /> <id nullFlavor="NA& quot; /> <code codeSystem="local" code="eGFR&quot ; displayName="EST GFR (MDRD)" /> <statusCode code=& quot;completed" /> <effectiveTime value="293016399626& quot; /> <value unit="mL/min" xsi:type="PQ" value="56" /> <interpretationCode codeSystem=" local" code="*" /> <referenceRange> <observationRange> <text>> 59</text> </observationRange> </referenceRange> </ observation> </component> <component> < observation moodCode="EVN" classCode="OBS"> < templateId root="2.16.840.1.278579.10.20.22.4.2" /> < id nullFlavor="NA" /> <code codeSystem="local&quot ; code="GAP" displayName="ANION GAP" /> < statusCode code="completed" /> <effectiveTime value=& quot;903729035332" /> <value unit="mmol/L" xsi: type="PQ" value="18" /> <interpretationCode codeSystem="local" code="*" /> < referenceRange> <observationRange> <text> 5-15</text></observationRange> </referenceRange> </observation> </component> <component> & lt;observation moodCode="EVN" classCode="OBS"> & lt;templateId root="2.16.840.1.042836.10.20.22.4.2" /> &lt ;id nullFlavor="NA" /> <code codeSystem="local& quot; code="GLU" displayName="GLUCOSE" /> < statusCode code="completed" /> <effectiveTime value=" 191584195315" /> <value unit="mg/dL" xsi:type=& quot;PQ" value="209" /> <interpretationCode codeSystem="local" code="*" /> < referenceRange> <observationRange> <text> 70-99</text> </observationRange> </ referenceRange> </observation> </component> < component> <observation moodCode="EVN" classCode=" OBS"> <templateId root="2.16.840.1.819895.10.20.22.4.2& quot; /> <id nullFlavor="NA" /> <code codeSystem="local" code="CA" displayName="CALCIUM&quot ; /> <statusCode code="completed" /> < effectiveTime value="222870088363" /> <value unit=&quot ;mg/dL" xsi:type="PQ" value="8.1" /> < interpretationCode codeSystem="local" code="*" /> &lt ;referenceRange> <observationRange> <text&gt ;8.5-10.1</text> </observationRange> </ referenceRange> </observation> </component> < component> <observation moodCode="EVN" classCode=" OBS"> <templateId root="2.16.840.1.051471.10.20.22.4.2& quot; /> <id nullFlavor="NA" /> <code codeSystem="local" code="BUN" displayName="BLOOD UREA NITROGEN" /> <statusCode code="completed" /> <effectiveTime value="580632942371" /> <value unit=& quot;mg/dL" xsi:type="PQ" value="16" /> &lt ;referenceRange> <observationRange> <text&gt ;7-20</text> </observationRange> </referenceRange&gt ; </observation> </component> <component> <observation moodCode="EVN" classCode="OBS"> <templateId root="2.16.840.1.974775.10.20.22.4.2" /> < id nullFlavor="NA" /> <code codeSystem="local&quot ; code="CREAT" displayName="CREATININE" /> < statusCode code="completed"/> <effectiveTime value=& quot;369891250700" /> <value unit="mg/dL" xsi:type ="PQ" value="1.3" /> <referenceRange> <observationRange> <text>0.8-1.3</text> </observationRange> </referenceRange> </ observation> </component> <component> < observation moodCode="EVN" classCode="OBS"> < templateId root="2.16.840.1.667915.10.20.22.4.2" /> < id nullFlavor="NA" /> <code codeSystem="local&quot ; code="NA" displayName="SODIUM" /> < statusCode code="completed" /> <effectiveTime value=& quot;901609064413" /> <value unit="mmol/L" xsi: type="PQ" value="136" /> <referenceRange> <observationRange> <text>135-148</text& gt; </observationRange> </referenceRange> </observation> </component> <component> < observation moodCode="EVN" classCode="OBS"> < templateId root="2.16.840.1.281377.10.20.22.4.2" /> < id nullFlavor="NA" /> <code codeSystem="local" code="CL" displayName="CHLORIDE" /> < statusCode code="completed" /> <effectiveTime value=& quot;923623117398" /> <value unit="mmol/L" xsi: type="PQ" value="101" /> <referenceRange> <observationRange> <text>98-110</text&gt ; </observationRange> </referenceRange> </ observation> </component> <component> < observation moodCode="EVN" classCode="OBS"> < templateId root="2.16.840.1.831341.10.20.22.4.2" /> < id nullFlavor="NA" /> <code codeSystem="local&quot ; code="CO2" displayName="CARBON DIOXIDE" /> &lt ;statusCode code="completed" /> <effectiveTime value=& quot;558081592894" /> <value unit="mmol/L" xsi: type="PQ" value="17" /> <interpretationCode codeSystem="local" code="*" /> < referenceRange> <observationRange> <text> 21-32</text> </observationRange> </referenceRange&gt ; </observation> </component> </organizer> &lt ;/entry> <entry> <organizer moodCode="EVN" classCode=& quot;BATTERY"> <templateId root=" 2.16.840.1.219557.10.20.22.4.1" /> <id nullFlavor="NA&quot ; /> <code codeSystem="local" code="MAG" displayName="MAGNESIUM" /> <statusCode code="completed " /> <component> <observation moodCode="EVN& quot; classCode="OBS"> <templateId root=" 2.16.840.1.522110.10.20.22.4.2" /><id nullFlavor="NA" /&gt ; <code codeSystem="local" code="MAG" displayName="MAGNESIUM" /> <statusCode code=" completed" /> <effectiveTime value="187612647130" /> <value unit="mg/dL" xsi:type="PQ" value=& quot;1.9" /> <referenceRange> <observationRange> <text>1.8-2.4</text> </observationRange&gt ; </referenceRange> </observation> </ component> </organizer> </entry> <entry> < organizer moodCode="EVN" classCode="BATTERY"> < templateId root="2.16.840.1.369468.10.20.22.4.1" /> <id nullFlavor="NA" /> <code codeSystem="local" code= "ABG"displayName="ARTERIAL BLOOD GAS" /> < statusCode code="completed" /> <component> < observation moodCode="EVN" classCode="OBS"> < templateId root="2.16.840.1.143090.10.20.22.4.2" /> < id nullFlavor="NA" /> <code codeSystem="local&quot ; code="JAIME" displayName="ABG BASE EXCESS" /> & lt;statusCode code="completed" /> <effectiveTime value=" 639868311589" /> <value unit="meq/L"xsi:type=&quot ;PQ" value="-8.9" /> <interpretationCode codeSystem="local" code="*" /> < referenceRange> <observationRange> <text> -3.0-3.0</text> </observationRange> </ referenceRange> </observation> </component> < component> <observation moodCode="EVN" classCode="OBS&quot ;> <templateId root="2.16.840.1.654217.10.20.22.4.2" /& gt; <id nullFlavor="NA" /> <code codeSystem=& quot;local" code="JASON" displayName="ABG DEVICE"/> <statusCode code="completed" /> < effectiveTime value="315389185601" /> <value unit=&quot ;" xsi:type="PQ" value="NC" /> < referenceRange> <observationRange> <text /& gt; </observationRange> </referenceRange> </observation> </component> <component> &lt ;observation moodCode="EVN" classCode="OBS"> &lt ;templateId root="2.16.840.1.978594.10.20.22.4.2"/> < id nullFlavor="NA" /> <code codeSystem="local&quot ;code="HCO3A" displayName="ABG BICARBONATE" /> & lt;statusCode code="completed" /> <effectiveTime value= "020116661190" /> <value unit="meq/L" xsi: type="PQ" value="16.1" /> < interpretationCode codeSystem="local" code="*" /> <referenceRange> <observationRange> < text>23.0-28.0</text> </observationRange> &lt ;/referenceRange> </observation> </component> & lt;component> <observation moodCode="EVN" classCode=&quot ;OBS"> <templateId root="2.16.840.1.209498.10.20.22.4.2 " /> <id nullFlavor="NA" /> <code codeSystem="local" code="L/MA" displayName="ABG L/M& quot; /> <statusCode code="completed" /> & lt;effectiveTime value="110289190472" /> <value unit=& quot;" xsi:type="PQ" value="2.0" /> < referenceRange> <observationRange> <text /& gt; </observationRange> </referenceRange> </observation> </component> <component> &lt ;observation moodCode="EVN" classCode="OBS"> &lt ;templateId root="2.16.840.1.152241.10.20.22.4.2" /> < id nullFlavor="NA" /> <codecodeSystem="local&quot ; code="PCO2A" displayName="ABG PCO2" /> < statusCode code="completed" /> <effectiveTime value=& quot;768775788211" /> <value unit="mmHg" xsi:type= "PQ" value="32" /> <interpretationCode codeSystem="local" code="*" /> < referenceRange> <observationRange> <text> 34-45</text> </observationRange> </referenceRange > </observation> </component> <component> <observation moodCode="EVN" classCode="OBS"> <templateId root="2.16.840.1.953710.10.20.22.4.2" /> <id nullFlavor="NA" /> <code codeSystem=" local" code="PHAX" displayName="ABG PH" /> <statusCode code="completed" /> <effectiveTime value ="307216717450" /> <value unit="" xsi:type=& quot;PQ" value="7.32" /> <interpretationCode codeSystem="local" code="*" /> < referenceRange> <observationRange> <text> 7.35-7.45</text> </observationRange> </referenceRange > </observation> </component> <component> <observation moodCode="EVN" classCode="OBS"> <templateId root="2.16.840.1.193313.10.20.22.4.2" /> <id nullFlavor="NA" /> <code codeSystem=&quot ;local" code="PO2A" displayName="ABG PO2" /> <statusCode code="completed" /> <effectiveTime value="986615775863" /> <value unit="mmHg" xsi:type="PQ" value="121" /> < interpretationCode codeSystem="local" code="*" /> <referenceRange> <observationRange> < text>75-100</text> </observationRange> </ referenceRange> </observation> </component> < component> <observation moodCode="EVN" classCode=" OBS"> <templateId root="2.16.840.1.522464.10..22.4.2& quot; /> <id nullFlavor="NA" /> <code codeSystem="local" code="SATA" displayName="ABG O2 SATURATION" /> <statusCode code="completed" /> <effectiveTime value="216542360196" /> < value unit="%" xsi:type="PQ" value="99" /& gt; <referenceRange> <observationRange> & lt;text>93-100</text> </observationRange> &lt ;/referenceRange> </observation> </component> < /organizer> </entry> <entry> <organizer moodCode=" EVN" classCode="BATTERY"> <templateId root=" 2.16.840.1.047580.10.20.22.4.1" /> <id nullFlavor="NA&quot ; /> <code codeSystem="local" code="CBC" displayName="CBC" /> <statusCode code="completed&quot ; /> <component> <observation moodCode="EVN" classCode="OBS"> <templateId root=" 2.16.840.1.376392.10.20.22.4.2" /> <id nullFlavor="NA&quot ; /> <code codeSystem="local" code="MCH" displayName="MEAN CELL HGB" /> <statusCode code=" completed" /> <effectiveTime value="790995992819" /> <value unit="pg" xsi:type="PQ" value=&quot ;32.3" /> <referenceRange> <observationRange& gt; <text>27.0-33.0</text> </ observationRange> </referenceRange> </observation&gt ; </component> <component> <observation moodCode ="EVN" classCode="OBS"> <templateId root=& quot;2.16.840.1.199797.10.20.22.4.2" /> <id nullFlavor=&quot ;NA" /> <code codeSystem="local" code="[facility]& quot; displayName="MEAN CELL HGB CONCENTRATION" /> < statusCode code="completed" /> <effectiveTime value=& quot;995530171326" /> <value unit="g/dl" xsi:type= "PQ" value="33.9" /> <referenceRange> <observationRange> <text>32.0-36.0</text> </observationRange> </referenceRange> < /observation> </component> <component> < observation moodCode="EVN" classCode="OBS"> < templateId root="2.16.840.1.358564.10.20.22.4.2" /> < id nullFlavor="NA" /> <code codeSystem="local&quot ; code="MCV" displayName="MEAN CELL VOLUME" /> & lt;statusCode code="completed" /> <effectiveTime value=& quot;146493392966" /> <value unit="fl" xsi:type=& quot;PQ" value="95.2" /> <referenceRange> <observationRange> <text>80.0-100.0</text&gt ; </observationRange> </referenceRange> & lt;/observation> </component> <component> < observation moodCode="EVN" classCode="OBS"> < templateId root="2.16.840.1.097320.10.20.22.4.2" /> < id nullFlavor="NA" /> <code codeSystem="local&quot ; code="RBC" displayName="RED BLOOD CELL" /> &lt ;statusCode code="completed" /> <effectiveTime value=& quot;559165492922" /> <value unit="m/cumm" xsi: type="PQ" value="2.94" /> < interpretationCode codeSystem="local"code="*" /> <referenceRange> <observationRange> <text> 4.00-6.00</text> </observationRange> </ referenceRange> </observation> </component> < component> <observation moodCode="EVN" classCode=" OBS"> <templateId root="2.16.840.1.484879.10.20.22.4.2& quot; /> <id nullFlavor="NA" /> <code codeSystem="local" code="RDW" displayName="RED CELL DISTRIBUTION WIDTH" /> <statusCode code="completed&quot ; /> <effectiveTime value="077098989480" /> <value unit="%" xsi:type="PQ" value="12.4& quot; /> <referenceRange> <observationRange> <text>11.0-15.6</text> </observationRange> </referenceRange> </observation> </ component> <component> <observation moodCode="EVN& quot; classCode="OBS"> <templateId root=" 2.16.840.1.967791.10.20.22.4.2" /> <id nullFlavor="NA& quot; /> <code codeSystem="local" code="WBC" displayName="WHITE BLOOD CELL" /> <statusCode code=& quot;completed" /> <effectiveTime value="256296159889& quot; /> <value unit="k/cumm" xsi:type="PQ" value="14.7" /> <interpretationCode codeSystem=" local" code="*" /> <referenceRange> <observationRange> <text>5.0-10.0</text> </observationRange> </referenceRange> </ observation> </component> <component> < observation moodCode="EVN" classCode="OBS"> < templateId root="2.16.840.1.862512.10.20.22.4.2" /> < id nullFlavor="NA" /> <code codeSystem="local&quot ; code="HGBT" displayName="HEMOGLOBIN" /> < statusCode code="completed" /> <effectiveTime value=& quot;224990928944" /> <value unit="gm/dL" xsi:type ="PQ" value="9.5" /> <interpretationCode codeSystem="local" code="*" /> < referenceRange> <observationRange> <text> 14.0-18.0</text> </observationRange> </ referenceRange> </observation> </component> < component> <observation moodCode="EVN" classCode=" OBS"> <templateId root="[id number]& quot; /> <id nullFlavor="NA" /> <code codeSystem="local" code="HCTT" displayName="HEMATOCRIT& quot; /> <statusCode code="completed" /> < effectiveTime value="[id number]" /> <value unit=&quot ;%" xsi:type="PQ" value="28.0" /> & lt;interpretationCode codeSystem="local" code="*" /> <referenceRange> <observationRange> & lt;text>40.0-54.0</text> </observationRange> </ referenceRange> </observation> </component> < component> <observation moodCode="EVN" classCode="OBS& quot;> <templateIdroot="2.16.840.1.312207.10.20.22.4.2&quot ; /> <id nullFlavor="NA" /> <code codeSystem="local" code="PLT" displayName="PLATELET COUNT" /> <statusCode code="completed" /> <effectiveTime value="758107832388" /> <value unit="k/cumm" xsi:type="PQ" value="102" /> <interpretationCode codeSystem="local" code="*" /& gt; <referenceRange> <observationRange> <text>150-450</text> </observationRange> </referenceRange> </observation> </component> & lt;/organizer> </entry> <entry> <organizer moodCode=" EVN" classCode="BATTERY"> <templateId root=" 2.16.840.1.863380.10.20.22.4.1" /> <id nullFlavor="NA&quot ; /> <code codeSystem="local" code="CAION" displayName="CALCIUM IONIZED" /> <statusCode code=" completed" /> <component> <observation moodCode=& quot;EVN" classCode="OBS"> <templateId root=" 2.16.840.1.973109.10.20.22.4.2" /> <id nullFlavor="NA& quot; /> <code codeSystem="local" code="CAION&quot ; displayName="CALCIUM IONIZED" /> <statusCode code=" completed" /> <effectiveTime value="491982500126" /> <value unit="mg/dL" xsi:type="PQ" value=& quot;4.5"/> <referenceRange> < observationRange> <text>4.5-5.3</text> & lt;/observationRange> </referenceRange> </ observation> </component> </organizer> </entry> & lt;entry> <organizer moodCode="EVN" classCode="BATTERY& quot;> <templateId root="2.16.840.1.870247.10.20.22.4.1" /& gt; <id nullFlavor="NA" /> <code codeSystem=" local" code="METAB" displayName="METABOLIC PANEL, BASIC&quot ; /> <statusCode code="completed" /> <component& gt; <observationmoodCode="EVN" classCode="OBS"&gt ; <templateId root="2.16.840.1.551124.10.20.22.4.2" /> <id nullFlavor="NA" /> <code codeSystem=& quot;local" code="K" displayName="POTASSIUM" /> <statusCode code="completed" /> < effectiveTime value="392816102699" /> <value unit=&quot ;mmol/L" xsi:type="PQ" value="2.4" /> < interpretationCode codeSystem="local" code="" /> <referenceRange> <observationRange> < text>3.5-5.3</text> </observationRange> </ referenceRange> </observation> </component> < component> <observation moodCode="EVN" classCode=" OBS"> <templateId root="2.16.840.1.160082.10..22.4.2& quot; /> <id nullFlavor="NA" /> <code codeSystem="local" code="eGFR" displayName="EST GFR ( MDRD)" /> <statusCode code="completed" /> <effectiveTime value="996350165533" /> <value unit="mL/min" xsi:type="PQ" value="56" /> <interpretationCodecodeSystem="local" code="*" /&gt ; <referenceRange> <observationRange> <text>> 59</text> </observationRange> </referenceRange> </observation> </component& gt; <component> <observation moodCode="EVN" classCode="OBS"><templateId root=" 2.16.840.1.112044.10..22.4.2" /> <id nullFlavor="NA& quot; /> <code codeSystem="local" code="GAP" displayName="ANION GAP" /> <statusCode code=" completed" /> <effectiveTime value="195993174112" /> <value unit="mmol/L" xsi:type="PQ" value=& quot;18" /> <interpretationCode codeSystem="local&quot ; code="*" /> <referenceRange> < observationRange> <text>5-15</text> </ observationRange> </referenceRange> </observation&gt ; </component> <component> <observation moodCode ="EVN" classCode="OBS"> <templateId root=& quot;2.16.840.1.119885.10.20.22.4.2" /> <id nullFlavor=&quot ;NA" /> <code codeSystem="local" code="GLU& quot; displayName="GLUCOSE" /> <statusCode code=" completed" /> <effectiveTime value="432801174035" /> <value unit="mg/dL" xsi:type="PQ" value=& quot;209" /> <interpretationCode codeSystem="local" code= "*" /> <referenceRange> < observationRange> <text>70-99</text> </ observationRange> </referenceRange> </observation&gt ; </component> <component> <observation moodCode ="EVN" classCode="OBS"> <templateId root=& quot;2.16.840.1.909573.10.20.22.4.2" /> <id nullFlavor=&quot ;NA" /> <code codeSystem="local" code="CA& quot; displayName="CALCIUM" /> <statusCode code=" completed" /> <effectiveTime value="510790362500" /&gt ; <value unit="mg/dL" xsi:type="PQ" value=" 8.1" /> <interpretationCode codeSystem="local" code="*" /> <referenceRange> < observationRange> <text>8.5-10.1</text> & lt;/observationRange> </referenceRange> </ observation> </component> <component> <observation moodCode="EVN" classCode="OBS"> <templateId root="2.16.840.1.907145.10.20.22.4.2" /> <id nullFlavor ="NA" /> <code codeSystem="local" code="BUN& quot; displayName="BLOOD UREA NITROGEN" /> <statusCode code="completed" /> <effectiveTime value=" 408364763605" /> <value unit="mg/dL" xsi:type=& quot;PQ" value="16" /> <referenceRange> <observationRange> <text>7-20</text> < /observationRange> </referenceRange> </observation& gt; </component> <component> <observation moodCode="EVN" classCode="OBS"> <templateId root="2.16.840.1.682274.10.20.22.4.2" /> <id nullFlavor ="NA" /> <code codeSystem="local" code=" CREAT" displayName="CREATININE" /><statusCode code=" completed" /> <effectiveTime value="601088261896" /> <value unit="mg/dL" xsi:type="PQ" value=& quot;1.3" /> <referenceRange> < observationRange> <text>0.8-1.3</text> & lt;/observationRange> </referenceRange> </ observation> </component> <component> < observation moodCode="EVN" classCode="OBS"> < templateId root="2.16.840.1.321749.10.20.22.4.2" /> < id nullFlavor="NA" /> <code codeSystem="local&quot ; code="NA" displayName="SODIUM" /> < statusCode code="completed" /> <effectiveTime value=& quot;470494526166" /> <value unit="mmol/L" xsi: type="PQ" value="136" /> <referenceRange> <observationRange> <text>135-148</text& gt; </observationRange> </referenceRange> </ observation> </component> <component> < observation moodCode="EVN" classCode="OBS"> < templateId root="2.16.840.1.837331.10.20.22.4.2" /> < id nullFlavor="NA" /> <code codeSystem="local&quot ; code="CL" displayName="CHLORIDE" /> < statusCode code="completed" /> <effectiveTime value=&quot ;789642948541" /> <value unit="mmol/L" xsi:type=& quot;PQ" value="101" /> <referenceRange> <observationRange> <text>98-110</text> </observationRange> </referenceRange> </ observation> </component> <component> < observation moodCode="EVN" classCode="OBS"> < templateId root="2.16.840.1.475453.10.20.22.4.2" /> < id nullFlavor="NA" /> <code codeSystem="local&quot ; code="CO2" displayName="CARBON DIOXIDE" /> &lt ;statusCode code="completed" /> <effectiveTime value=& quot;204163226171" /> <value unit="mmol/L" xsi: type="PQ" value="17" /> <interpretationCode codeSystem="local" code="*" /> < referenceRange> <observationRange> <text>21-32</ text> </observationRange> </referenceRange> </observation> </component> </organizer> </ entry> <entry> <organizer moodCode="EVN" classCode=& quot;BATTERY"> <templateId root=" 2.16.840.1.050912.10.20.22.4.1" /> <id nullFlavor="NA&quot ; /> <code codeSystem="local" code="MAG" displayName="MAGNESIUM" /> <statusCode code="completed " /> <component> <observation moodCode="EVN& quot; classCode="OBS"> <templateId root=" 2.16.840.1.053945.10.20.22.4.2" /> <id nullFlavor="NA& quot; /> <code codeSystem="local" code="MAG" displayName="MAGNESIUM" /> <statusCode code=" completed" /> <effectiveTime value="589368928520" /> <value unit="mg/dL" xsi:type="PQ" value=& quot;1.9" /> <referenceRange> < observationRange> <text>1.8-2.4</text> & lt;/observationRange> </referenceRange> </ observation> </component> </organizer> </entry> & lt;entry> <organizer moodCode="EVN" classCode="BATTERY& quot;> <templateId root="2.16.840.1.974257.10.20.22.4.1" /& gt; <id nullFlavor="NA" /> <code codeSystem=" local" code="GLUMON" displayName="GLUCOSE (POC)" /> <statusCode code="completed" /> <component> <observation moodCode="EVN" classCode="OBS"> <templateId root="2.16.840.1.415274.10.20.22.4.2" /> <id nullFlavor="NA" /> <code codeSystem=" local" code="GLUMON" displayName="GLUCOSE (POC)" /> <statusCode code="completed" /> < effectiveTime value="843453609018" /> <value unit=" mg/dL" xsi:type="PQ" value="224" /> < interpretationCode codeSystem="local" code="*" /> <referenceRange> <observationRange> < text>70-99</text> </observationRange> </ referenceRange> </observation> </component> </ organizer> </entry> <entry> <organizer moodCode="EVN " classCode="BATTERY"> <templateId root=" 2.16.840.1.813015.10.20.22.4.1" /> <id nullFlavor="NA&quot ; /> <code codeSystem="local" code="GLUMON" displayName="GLUCOSE (POC)" /> <statusCode code=" completed" /> <component> <observation moodCode=& quot;EVN" classCode="OBS"> <templateId root=" 2.16.840.1.613156.10.20.22.4.2" /> <id nullFlavor="NA" /& gt; <code codeSystem="local" code="GLUMON" displayName="GLUCOSE (POC)" /> <statusCode code=" completed" /> <effectiveTime value="875309586096" /> <value unit="mg/dL" xsi:type="PQ" value=& quot;224" /> <interpretationCode codeSystem="local&quot ; code="*" /> <referenceRange> < observationRange> <text>70-99</text> < /observationRange> </referenceRange> </observation&gt ; </component> </organizer> </entry> <entry> <organizer moodCode="EVN" classCode="BATTERY"> <templateId root="2.16.840.1.600836.10.20.22.4.1" /> < id nullFlavor="NA" /> <code codeSystem="local" code="GLUMON" displayName="GLUCOSE (POC)" /> < statusCode code="completed" /> <component> < observation moodCode="EVN" classCode="OBS">< templateId root="2.16.840.1.483332.10.20.22.4.2" /> < id nullFlavor="NA" /> <code codeSystem="local&quot ; code="GLUMON" displayName="GLUCOSE (POC)" /> & lt;statusCode code="completed" /> <effectiveTime value= "686189014653" /> <value unit="mg/dL" xsi: type="PQ" value="212" /> <interpretationCode codeSystem="local" code="*" /> < referenceRange> <observationRange> <text>70-99& lt;/text> </observationRange> </referenceRange& gt; </observation> </component> </organizer> & lt;/entry> <entry> <organizer moodCode="EVN" classCode ="BATTERY"> <templateId root=" 2.16.840.1.512894.10.20.22.4.1" /> <id nullFlavor="NA&quot ; /> <code codeSystem="local" code="GLUMON" displayName="GLUCOSE (POC)" /> <statusCode code=" completed" /> <component> <observation moodCode=& quot;EVN" classCode="OBS"> <templateId root=" 2.16.840.1.202436.10.20.22.4.2" /> <id nullFlavor="NA& quot; /><code codeSystem="local" code="GLUMON" displayName="GLUCOSE (POC)" /> <statusCode code=" completed" /> <effectiveTime value="779184615106" /> <value unit="mg/dL" xsi:type="PQ" value=& quot;212" /> <interpretationCode codeSystem="local&quot ; code="*" /> <referenceRange> < observationRange> <text>70-99</text> < /observationRange> </referenceRange> </observation& gt; </component> </organizer> </entry> <entry&gt ; <organizer moodCode="EVN" classCode="BATTERY"> <templateId root="2.16.840.1.305407.10.20.22.4.1" /> & lt;id nullFlavor="NA" /> <code codeSystem="local&quot ; code="GLUMON" displayName="GLUCOSE (POC)" /> < statusCode code="completed" /> <component> < observation moodCode="EVN" classCode="OBS"> < templateId root="2.16.840.1.631978.10.20.22.4.2" /> < id nullFlavor="NA" /> <code codeSystem="local&quot ; code="GLUMON" displayName="GLUCOSE (POC)" /> & lt;statusCode code="completed" /> <effectiveTime value= "001976952500" /> <value unit="mg/dL" xsi:type ="PQ" value="206" /> <interpretationCode codeSystem=& quot;local" code="*" /> <referenceRange> <observationRange> <text>70-99</text></ observationRange> </referenceRange> </observation&gt ; </component> </organizer> </entry> <entry> <organizer moodCode="EVN" classCode="BATTERY"> <templateId root="2.16.840.1.552419.10.20.22.4.1" /> < id nullFlavor="NA" /> <code codeSystem="local" code="GLUMON" displayName="GLUCOSE (POC)" /> < statusCode code="completed" /> <component> < observation moodCode="EVN" classCode="OBS"> < templateId root="2.16.840.1.344803.10.20.22.4.2" /> <id nullFlavor="NA" /> <code codeSystem="local" code="GLUMON" displayName="GLUCOSE (POC)" /> &lt ;statusCode code="completed" /> <effectiveTime value=& quot;837226060084" /> <value unit="mg/dL" xsi:type ="PQ" value="206" /> < interpretationCodecodeSystem="local" code="*" /> <referenceRange> <observationRange> < text>70-99</text> </observationRange> </ referenceRange> </observation> </component> </ organizer> </entry> <entry> <organizer moodCode="EVN " classCode="BATTERY"> <templateId root=" 2.16.840.1.669651.10.20.22.4.1" /> <id nullFlavor="NA&quot ; /> <code codeSystem="local" code="GLUMON" displayName="GLUCOSE (POC)" /> <statusCode code=" completed" /> <component> <observation moodCode=& quot;EVN" classCode="OBS"> <templateId root=" 2.16.840.1.760559.10.20.22.4.2" /> <id nullFlavor="NA& quot; /> <code codeSystem="local" code="GLUMON& quot; displayName="GLUCOSE (POC)" /> <statusCode code=& quot;completed" /> <effectiveTime value="299750623597& quot; /> <value unit="mg/dL" xsi:type="PQ" value="209" /> <interpretationCode codeSystem=" local" code="*" /> <referenceRange> <observationRange> <text>70-99</text> </ observationRange> </referenceRange> </observation&gt ; </component> </organizer> </entry> <entry> <organizer moodCode="EVN" classCode="BATTERY"> <templateId root="2.16.840.1.711552.10.20.22.4.1" /> < id nullFlavor="NA" /> <code codeSystem="local" code="GLUMON" displayName="GLUCOSE (POC)" /> < statusCode code="completed" /> <component> < observation moodCode="EVN" classCode="OBS"> < templateId root="2.16.840.1.453865.10.20.22.4.2" /> < id nullFlavor="NA" /> <code codeSystem="local" code=& quot;GLUMON" displayName="GLUCOSE (POC)"/> < statusCode code="completed" /> <effectiveTime value=& quot;843937945623" /> <value unit="mg/dL" xsi:type ="PQ" value="209" /> <interpretationCode codeSystem="local" code="*" /> < referenceRange> <observationRange> <text> 70-99</text> </observationRange> </ referenceRange> </observation> </component> </ organizer> </entry> <entry> <organizer moodCode="EVN " classCode="BATTERY"> <templateId root=" 2.16.840.1.136464.10.20.22.4.1" /> <id nullFlavor="NA&quot ; /> <code codeSystem="local" code="GLUMON" displayName="GLUCOSE (POC)" /> <statusCode code=" completed" /> <component> <observation moodCode=& quot;EVN" classCode="OBS"> <templateId root=" 2.16.840.1.783209.10.20.22.4.2" /> <id nullFlavor="NA& quot; /> <code codeSystem="local" code="GLUMON& quot; displayName="GLUCOSE (POC)" /> <statusCode code=& quot;completed" /> <effectiveTime value="171527323800& quot; /> <value unit="mg/dL" xsi:type="PQ" value="202" /> <interpretationCode codeSystem="local&quot ; code="*" /> <referenceRange> < observationRange> <text>70-99</text> </ observationRange> </referenceRange> </observation&gt ; </component> </organizer> </entry> <entry> <organizer moodCode="EVN" classCode="BATTERY"> <templateId root="2.16.840.1.113524.10.20.22.4.1" /> < id nullFlavor="NA" /> <code codeSystem="local" code="GLUMON" displayName="GLUCOSE (POC)" /> < statusCode code="completed" /> <component> < observation moodCode="EVN" classCode="OBS"> < templateId root="2.16.840.1.436735.10..22.4.2" /> <id nullFlavor="NA" /> <code codeSystem="local" code="GLUMON" displayName="GLUCOSE (POC)" /> &lt ;statusCode code="completed" /> <effectiveTime value=& quot;794210054902" /> <value unit="mg/dL" xsi:type ="PQ" value="202" /> <interpretationCode codeSystem="local" code="*" /> < referenceRange> <observationRange> <text> 70-99</text> </observationRange> </ referenceRange> </observation> </component> </ organizer> </entry> <entry> <organizer moodCode="EVN " classCode="BATTERY"> <templateId root=" 2.16.840.1.494933.10...4.1" /> <id nullFlavor="NA&quot ; /> <code codeSystem="local" code="GLUMON" displayName="GLUCOSE (POC)" /> <statusCode code=" completed" /> <component> <observation moodCode=& quot;EVN" classCode="OBS"> <templateId root=" 2.16.840.1.082361.10.20.22.4.2" /> <id nullFlavor="NA& quot; /> <code codeSystem="local" code="GLUMON& quot; displayName="GLUCOSE (POC)" /> <statusCode code=& quot;completed" /> <effectiveTime value="475723266196& quot; /> <value unit="mg/dL" xsi:type="PQ" value="207" /> <interpretationCode codeSystem=" local" code="*" /> <referenceRange> <observationRange> <text>70-99</text> < /observationRange> </referenceRange> </observation& gt; </component> </organizer> </entry><entry> <organizer moodCode="EVN" classCode="BATTERY"> <templateId root="2.16.840.1.964482.10.20.22.4.1" /> < id nullFlavor="NA"/> <code codeSystem="local" code="GLUMON" displayName="GLUCOSE (POC)" /> < statusCode code="completed" /> <component> < observation moodCode="EVN" classCode="OBS"> < templateId root="2.16.840.1.003489.10.20.22.4.2" /> < id nullFlavor="NA" /> <code codeSystem="local" code=& quot;GLUMON" displayName="GLUCOSE (POC)" /> < statusCode code="completed" /> <effectiveTime value=& quot;112296433511" /> <value unit="mg/dL" xsi:type ="PQ" value="207" /> <interpretationCode codeSystem="local" code="*" /> < referenceRange> <observationRange> <text> 70-99</text> </observationRange> </ referenceRange> </observation> </component> </ organizer> </entry> <entry> <organizer moodCode="EVN " classCode="BATTERY"> <templateId root=" 2.16.840.1.793835.10.20.22.4.1" /> <id nullFlavor="NA&quot ; /> <code codeSystem="local" code="GLUMON" displayName="GLUCOSE (POC)" /> <statusCode code=" completed" /> <component> <observation moodCode=& quot;EVN" classCode="OBS"> <templateId root=" 2.16.840.1.862889.10.20.22.4.2" /> <id nullFlavor="NA& quot; /> <code codeSystem="local" code="GLUMON& quot; displayName="GLUCOSE (POC)" /> <statusCode code=& quot;completed" /> <effectiveTime value="975925092069& quot; /> <value unit="mg/dL" xsi:type="PQ" value="174" /> <interpretationCode codeSystem="local& quot; code="*" /> <referenceRange> < observationRange> <text>70-99</text> </ observationRange> </referenceRange> </observation&gt ; </component> </organizer> </entry> <entry> <organizer moodCode="EVN" classCode="BATTERY"> <templateId root="2.16.840.1.932308.10.20.22.4.1" /> < id nullFlavor="NA" /> <code codeSystem="local" code="GLUMON" displayName="GLUCOSE (POC)" /> < statusCode code="completed" /> <component> < observation moodCode="EVN" classCode="OBS"> < templateId root="2.16.840.1.820815.10.20.22.4.2" /> <id nullFlavor="NA" /> <code codeSystem="local" code="GLUMON" displayName="GLUCOSE (POC)" /> &lt ;statusCode code="completed" /> <effectiveTime value=& quot;459702901466" /> <value unit="mg/dL" xsi:type ="PQ" value="174" /> <interpretationCode codeSystem="local" code="*" /> < referenceRange> <observationRange> <text> 70-99</text> </observationRange> </ referenceRange> </observation> </component> </ organizer> </entry> <entry> <organizer moodCode="EVN " classCode="BATTERY"> <templateId root=" 2.16.840.1.836756.10.20.22.4.1" /> <idnullFlavor="NA" /> <code codeSystem="local" code="GLUMON" displayName="GLUCOSE (POC)" /> <statusCode code=" completed" /> <component> <observation moodCode=& quot;EVN" classCode="OBS"> <templateId root=" 2.16.840.1.266279.10.20.22.4.2" /> <id nullFlavor="NA& quot; /> <code codeSystem="local" code="GLUMON& quot; displayName="GLUCOSE (POC)" /> <statusCode code=& quot;completed" /> <effectiveTime value="584079444690& quot; /> <value unit="mg/dL" xsi:type="PQ" value="149" /> <interpretationCode codeSystem=" local" code="*" /> <referenceRange> <observationRange> <text>70-99</text> &lt ;/observationRange> </referenceRange> </observation& gt; </component> </organizer> </entry> <entry> <organizer moodCode="EVN" classCode="BATTERY"> <templateId root="2.16.840.1.902835.10.20.22.4.1" /> &lt ;id nullFlavor="NA" /> <code codeSystem="local" code="GLUMON" displayName="GLUCOSE (POC)" /> < statusCode code="completed" /> <component> < observation moodCode="EVN" classCode="OBS"> < templateId root="2.16.840.1.343983.10.20.22.4.2" /> < id nullFlavor="NA" /> <code codeSystem="local" code= "GLUMON" displayName="GLUCOSE (POC)" /> < statusCode code="completed" /> <effectiveTime value=& quot;946838108128" /> <value unit="mg/dL" xsi:type ="PQ" value="149" /> <interpretationCode codeSystem="local" code="*"/> <referenceRange > <observationRange> <text>70-99</text > </observationRange> </referenceRange> </observation> </component> </organizer> </ entry> <entry> <organizer moodCode="EVN" classCode=& quot;BATTERY"> <templateId root=" 2.16.840.1.205300.10.20.22.4.1" /> <id nullFlavor="NA&quot ; /> <code codeSystem="local" code="GLUMON" displayName="GLUCOSE (POC)" /> <statusCode code=" completed" /> <component> <observation moodCode=& quot;EVN" classCode="OBS"> <templateId root=" 2.16.840.1.492993.10.20.22.4.2" /> <id nullFlavor="NA& quot; /> <code codeSystem="local" code="GLUMON& quot; displayName="GLUCOSE (POC)" /> <statusCode code=& quot;completed" /> <effectiveTime value="549949770364& quot; /> <value unit="mg/dL" xsi:type="PQ" value="114" /> <interpretationCode codeSystem="local& quot; code="*" /> <referenceRange> < observationRange> <text>70-99</text> </ observationRange> </referenceRange> </observation&gt ; </component> </organizer> </entry> <entry> <organizer moodCode="EVN" classCode="BATTERY"> <templateId root="2.16.840.1.055940.10.20.22.4.1" /> < id nullFlavor="NA" /> <code codeSystem="local" code="GLUMON" displayName="GLUCOSE (POC)" /> < statusCode code="completed" /> <component> < observation moodCode="EVN" classCode="OBS"> < templateId root="2.16.840.1.848329.10.20.22.4.2" /> <id nullFlavor="NA" /> <code codeSystem="local" code="GLUMON" displayName="GLUCOSE (POC)" /> &lt ;statusCode code="completed" /> <effectiveTime value=& quot;227048917707" /> <value unit="mg/dL" xsi:type ="PQ" value="114" /> <interpretationCode codeSystem="local" code="*" /> < referenceRange> <observationRange> <text> 70-99</text> </observationRange> </ referenceRange> </observation> </component> </ organizer> </entry> <entry> <organizer moodCode="EVN " classCode="BATTERY"> <templateId root=" 2.16.840.1.743956.10.20.22.4.1" /> <id nullFlavor="NA&quot ; /> <code codeSystem="local" code="GLUMON" displayName="GLUCOSE (POC)" /> <statusCode code=" completed" /><component> <observation moodCode="EVN " classCode="OBS"> <templateId root=" 2.16.840.1.831701.10.20.22.4.2" /> <id nullFlavor="NA& quot; /> <code codeSystem="local" code="GLUMON& quot; displayName="GLUCOSE (POC)" /> <statusCode code=& quot;completed" /> <effectiveTime value="538567123880& quot; /> <value unit="mg/dL" xsi:type="PQ" value="62" /> <interpretationCode codeSystem=" local" code="*" /> <referenceRange> <observationRange> <text>70-99</text> &lt ;/observationRange> </referenceRange> </observation& gt; </component> </organizer> </entry> <entry> <organizer moodCode="EVN" classCode="BATTERY"> <templateId root="2.16.840.1.901262.10.20.22.4.1" /> &lt ;id nullFlavor="NA" /> <code codeSystem="local" code="GLUMON" displayName="GLUCOSE (POC)" /> < statusCode code="completed" /> <component> < observation moodCode="EVN" classCode="OBS"> < templateId root="2.16.840.1.197005.10.20.22.4.2" /> < id nullFlavor="NA" /> <code codeSystem="local" code= "GLUMON" displayName="GLUCOSE (POC)" /> < statusCode code="completed" /> <effectiveTime value=& quot;002521084020" /> <value unit="mg/dL" xsi:type ="PQ" value="62" /> <interpretationCode codeSystem="local" code="*" /> < referenceRange> <observationRange> <text> 70-99</text> </observationRange> </ referenceRange> </observation> </component> </ organizer> </entry> <entry> <organizer moodCode="EVN " classCode="BATTERY"> <templateId root=" 2.16.840.1.230955.10.20.22.4.1" /> <id nullFlavor="NA&quot ; /> <code codeSystem="local" code="K" displayName="POTASSIUM" /> <statusCode code="completed " /> <component> <observation moodCode="EVN& quot; classCode="OBS"> <templateId root=" [id number]" /> <id nullFlavor="NA& quot; /> <code codeSystem="local" code="K" displayName="POTASSIUM" /> <statusCode code=" completed" /> <effectiveTime value="[id number]" /> <value unit="mmol/L" xsi:type="PQ" value=& quot;2.6" /> <interpretationCode codeSystem="local&quot ; code="*" /> <referenceRange> < observationRange> <text>3.5-5.3</text> & lt;/observationRange> </referenceRange> </ observation> </component></organizer> </entry> < entry> <organizer moodCode="EVN" classCode="BATTERY&quot ;> <templateId root="[id number]" /> <id nullFlavor="NA" /> <code codeSystem="local& quot; code="K" displayName="POTASSIUM" /> < statusCode code="completed" /><component> < observation moodCode="EVN" classCode="OBS"> < templateId root="2.16.840.1.826471.10..22.4.2" /> < id nullFlavor="NA" /> <code codeSystem="local&quot ; code="K" displayName="POTASSIUM" /> < statusCode code="completed" /> <effectiveTime value=& quot;646214039846" /> <value unit="mmol/L" xsi: type="PQ" value="2.6" /> <interpretationCode codeSystem="local" code="*" /> < referenceRange> <observationRange> <text>3.5-5.3&lt ;/text> </observationRange> </referenceRange&gt ; </observation> </component> </organizer> &lt ;/entry> <entry> <organizer moodCode="EVN" classCode=& quot;BATTERY"> <templateId root=" 2.16.840.1.577036.10.20.22.4.1" /> <id nullFlavor="NA&quot ; /> <code codeSystem="local" code="GLUMON" displayName="GLUCOSE (POC)" /> <statusCode code=" completed" /> <component> <observation moodCode=& quot;EVN" classCode="OBS"> <templateId root=" 2.16.840.1.039012.10.20.22.4.2" /> <id nullFlavor="NA& quot; /> <code codeSystem="local" code="GLUMON& quot; displayName="GLUCOSE (POC)" /> <statusCode code=& quot;completed" /> <effectiveTime value="865469079952& quot; /> <value unit="mg/dL" xsi:type="PQ" value="54" /> <interpretationCode codeSystem=" local" code="*" /> <referenceRange> & lt;observationRange> <text>70-99</text> & lt;/observationRange> </referenceRange> </ observation> </component> </organizer> </entry> & lt;entry> <organizer moodCode="EVN" classCode="BATTERY& quot;> <templateId root="2.16.840.1.608741.10.20.22.4.1" /& gt; <id nullFlavor="NA" /> <code codeSystem=" local" code="GLUMON" displayName="GLUCOSE (POC)" /> <statusCode code="completed" /> <component> <observation moodCode="EVN" classCode="OBS"> <templateId root="2.16.840.1.725820.10.20.22.4.2" /> <id nullFlavor="NA" /> <code codeSystem=" local" code="GLUMON" displayName="GLUCOSE (POC)" /> <statusCode code="completed" /> < effectiveTime value="743606268725" /> <value unit="mg/ dL" xsi:type="PQ" value="54" /> < interpretationCode codeSystem="local" code="*" /> <referenceRange> <observationRange> < text>70-99</text> </observationRange> </ referenceRange> </observation> </component> </ organizer> </entry> <entry> <organizer moodCode="EVN "classCode="BATTERY"> <templateId root=" 2.16.840.1.911065.10.20.22.4.1" /> <id nullFlavor="NA&quot ; /> <code codeSystem="local" code="GLUMON" displayName="GLUCOSE (POC)" /> <statusCode code=" completed" /> <component> <observation moodCode=& quot;EVN" classCode="OBS"> <templateId root=" 2.16.840.1.317356.10.20.22.4.2" /> <id nullFlavor="NA& quot; /> <code codeSystem="local" code="GLUMON& quot; displayName="GLUCOSE (POC)" /> <statusCode code=& quot;completed" /> <effectiveTime value="664301334105& quot; /> <value unit="mg/dL" xsi:type="PQ" value="94" /> <referenceRange> < observationRange> <text>70-99</text> < /observationRange> </referenceRange> </observation& gt; </component> </organizer> </entry> <entry&gt ; <organizer moodCode="EVN" classCode="BATTERY"> <templateId root="2.16.840.1.925058.10.20.22.4.1" /> <id nullFlavor="NA" /> <code codeSystem="local" code= "GLUMON" displayName="GLUCOSE (POC)" /> < statusCode code="completed" /> <component> < observation moodCode="EVN" classCode="OBS"> < templateId root="2.16.840.1.991063.10.20.22.4.2" /> < id nullFlavor="NA" /> <code codeSystem="local&quot ; code="GLUMON" displayName="GLUCOSE (POC)" /> & lt;statusCode code="completed" /> <effectiveTime value=& quot;470779396567" /> <value unit="mg/dL" xsi:type ="PQ" value="94" /> <referenceRange> <observationRange> <text>70-99</text> </observationRange> </referenceRange> </ observation> </component> </organizer> </entry> & lt;entry> <organizer moodCode="EVN" classCode="BATTERY& quot;> <templateId root="2.16.840.1.182024.10.20.22.4.1" /& gt; <id nullFlavor="NA" /> <code codeSystem=" local" code="GLUMON" displayName="GLUCOSE (POC)" /> <statusCode code="completed" /> <component> <observation moodCode="EVN" classCode="OBS">< templateId root="2.16.840.1.720048.10.20.22.4.2" /> < id nullFlavor="NA" /> <code codeSystem="local&quot ; code="GLUMON" displayName="GLUCOSE (POC)" /> & lt;statusCode code="completed" /> <effectiveTime value= "586215294463" /> <value unit="mg/dL" xsi: type="PQ" value="65" /> <interpretationCode codeSystem="local" code="*" /> < referenceRange> <observationRange> <text>70-99& lt;/text> </observationRange> </referenceRange& gt; </observation> </component> </organizer> & lt;/entry> <entry> <organizer moodCode="EVN" classCode ="BATTERY"> <templateId root=" 2.16.840.1.963458.10.20.22.4.1" /> <id nullFlavor="NA&quot ; /> <code codeSystem="local" code="GLUMON" displayName="GLUCOSE (POC)" /> <statusCode code=" completed" /> <component> <observation moodCode=& quot;EVN" classCode="OBS"> <templateId root=" 2.16.840.1.951597.10.20.22.4.2" /> <id nullFlavor="NA& quot; /> <code codeSystem="local" code="GLUMON& quot; displayName="GLUCOSE (POC)" /> <statusCode code=& quot;completed" /> <effectiveTime value="851941282385& quot; /> <value unit="mg/dL" xsi:type="PQ" value="65" /> <interpretationCode codeSystem=" local" code="*" /> <referenceRange> <observationRange> <text>70-99</text> </observationRange> </referenceRange> </ observation> </component> </organizer> </entry> & lt;entry> <organizer moodCode="EVN" classCode="BATTERY& quot;> <templateId root="2.16.840.1.800234.10.20.22.4.1" /& gt; <id nullFlavor="NA" /> <code codeSystem=" local" code="GLUMON" displayName="GLUCOSE (POC)" /> <statusCode code="completed" /> <component> <observation moodCode="EVN" classCode="OBS"> <templateId root="2.16.840.1.395437.10.20.22.4.2" /> <id nullFlavor="NA" /> <code codeSystem=" local" code="GLUMON" displayName="GLUCOSE (POC)" /> <statusCode code="completed" /> < effectiveTime value="452623220245" /> <value unit="mg /dL" xsi:type="PQ" value="91" /> < referenceRange> <observationRange> <text> 70-99</text> </observationRange> </ referenceRange> </observation> </component> </ organizer> </entry> <entry> <organizer moodCode="EVN " classCode="BATTERY"> <templateId root=" 2.16.840.1.368886.10.20.22.4.1" /> <id nullFlavor="NA&quot ; /> <code codeSystem="local" code="GLUMON" displayName="GLUCOSE (POC)" /> <statusCode code=" completed" /> <component> <observation moodCode=& quot;EVN" classCode="OBS"> <templateId root=" 2.16.840.1.019437.10.20.22.4.2"/> <id nullFlavor="NA& quot; /> <code codeSystem="local"code="GLUMON&quot ; displayName="GLUCOSE (POC)" /> <statusCode code=&quot ;completed" /> <effectiveTime value="000896588598&quot ; /> <value unit="mg/dL" xsi:type="PQ" value= "91" /> <referenceRange> < observationRange> <text>70-99</text> </ observationRange> </referenceRange> </observation&gt ; </component> </organizer> </entry> <entry> <organizer moodCode="EVN" classCode="BATTERY"> <templateId root="2.16.840.1.795373.10.20.22.4.1" /> < id nullFlavor="NA" /> <code codeSystem="local" code="GLUMON" displayName="GLUCOSE (POC)" /> < statusCode code="completed" /> <component> < observation moodCode="EVN" classCode="OBS"> < templateId root="2.16.840.1.626882.10.20.22.4.2" /> <id nullFlavor="NA" /> <code codeSystem="local" code="GLUMON" displayName="GLUCOSE (POC)" /> &lt ;statusCode code="completed" /> <effectiveTime value=& quot;582476997490" /> <value unit="mg/dL" xsi:type ="PQ" value="77" /> <referenceRange> <observationRange> <text>70-99</text> </observationRange> </referenceRange> </ observation> </component> </organizer> </entry> & lt;entry> <organizer moodCode="EVN" classCode="BATTERY& quot;> <templateId root="2.16.840.1.622444.10.20.22.4.1" /& gt; <id nullFlavor="NA" /> <code codeSystem=" local" code="GLUMON" displayName="GLUCOSE (POC)" /> <statusCode code="completed" /> <component> <observation moodCode="EVN" classCode="OBS"> <templateId root="2.16.840.1.126518.10.20.22.4.2" /> <idnullFlavor="NA" /> <code codeSystem=" local" code="GLUMON" displayName="GLUCOSE (POC)" /> <statusCode code="completed" /> < effectiveTime value="273285102930" /> <value unit=&quot ;mg/dL" xsi:type="PQ" value="77" /> < referenceRange><observationRange> <text>70-99</ text> </observationRange> </referenceRange> </observation> </component> </organizer> </ entry> <entry> <organizer moodCode="EVN" classCode=& quot;BATTERY"> <templateId root=" 2.16.840.1.777860.10.20.22.4.1" /> <id nullFlavor="NA&quot ; /> <code codeSystem="local" code="GLUMON" displayName="GLUCOSE (POC)" /> <statusCode code=" completed" /> <component> <observation moodCode=" EVN" classCode="OBS"> <templateId root=" 2.16.840.1.901713.10.20.22.4.2" /> <id nullFlavor="NA& quot; /> <code codeSystem="local" code="GLUMON& quot; displayName="GLUCOSE (POC)" /> <statusCode code=& quot;completed" /><effectiveTime value="122968419982" /&gt ; <value unit="mg/dL" xsi:type="PQ" value=" 115" /> <interpretationCode codeSystem="local" code="*" /> <referenceRange> < observationRange> <text>70-99</text> </ observationRange> </referenceRange> </observation&gt ; </component> </organizer> </entry> <entry> <organizer moodCode="EVN" classCode="BATTERY"> <templateId root="2.16.840.1.988601.10.20.22.4.1" /> < id nullFlavor="NA" /> <code codeSystem="local" code="GLUMON" displayName="GLUCOSE (POC)" /> < statusCode code="completed" /> <component> < observation moodCode="EVN" classCode="OBS"> < templateId root="2.16.840.1.044925.10.20.22.4.2" /> < id nullFlavor="NA" /> <code codeSystem="local" code="GLUMON" displayName="GLUCOSE (POC)" /> &lt ;statusCode code="completed" /> <effectiveTime value=& quot;888967502644" /> <value unit="mg/dL" xsi:type ="PQ" value="115" /> <interpretationCode codeSystem="local" code="*" /> < referenceRange> <observationRange> <text> 70-99</text> </observationRange> </ referenceRange> </observation> </component> </ organizer> </entry> <entry> <organizer moodCode="EVN " classCode="BATTERY"> <templateId root=" 2.16.840.1.789083.10.20.22.4.1" /> <id nullFlavor="NA&quot ; /> <code codeSystem="local" code="GLUMON" displayName="GLUCOSE (POC)" /> <statusCode code=" completed" /> <component> <observation moodCode=& quot;EVN" classCode="OBS"> <templateId root=" 2.16.840.1.208882.10.20.22.4.2" /> <id nullFlavor="NA& quot; /> <code codeSystem="local" code="GLUMON& quot; displayName="GLUCOSE (POC)" /> <statusCode code=& quot;completed" /> <effectiveTime value="019407626633& quot; /> <value unit="mg/dL" xsi:type="PQ" value="142" /> <interpretationCode codeSystem="local& quot; code="*" /> <referenceRange> < observationRange> <text>70-99</text> </ observationRange> </referenceRange> </observation&gt ; </component> </organizer> </entry> <entry> <organizer moodCode="EVN" classCode="BATTERY"> <templateId root="2.16.840.1.627958.10.20.22.4.1" /> < id nullFlavor="NA" /> <code codeSystem="local" code="GLUMON" displayName="GLUCOSE (POC)" /> < statusCode code="completed" /> <component> < observation moodCode="EVN" classCode="OBS"> < templateId root="2.16.840.1.609262.10.20.22.4.2" /> <id nullFlavor="NA" /> <code codeSystem="local" code="GLUMON" displayName="GLUCOSE (POC)" /> &lt ;statusCode code="completed" /> <effectiveTime value=& quot;692561908765" /> <value unit="mg/dL" xsi:type ="PQ" value="142" /> <interpretationCode codeSystem="local" code="*" /> < referenceRange> <observationRange> <text>70-99</ text> </observationRange> </referenceRange> </observation> </component> </organizer> </ entry> <entry> <organizer moodCode="EVN" classCode=& quot;BATTERY"> <templateId root=" 2.16.840.1.097032.10.20.22.4.1" /> <id nullFlavor="NA&quot ; /> <code codeSystem="local" code="GLUMON" displayName="GLUCOSE (POC)" /> <statusCode code=" completed" /> <component> <observation moodCode=" EVN" classCode="OBS"> <templateId root=" 2.16.840.1.015828.10.20.22.4.2" /> <id nullFlavor="NA& quot; /> <code codeSystem="local" code="GLUMON& quot; displayName="GLUCOSE (POC)" /> <statusCode code=& quot;completed" /> <effectiveTime value="175167007444" /&gt ; <value unit="mg/dL" xsi:type="PQ" value=" 136" /> <interpretationCode codeSystem="local" code="*" /> <referenceRange> < observationRange> <text>70-99</text> < /observationRange> </referenceRange> </observation& gt; </component> </organizer> </entry> <entry&gt ; <organizer moodCode="EVN" classCode="BATTERY"> <templateId root="2.16.840.1.477398.10.20.22.4.1" /> & lt;id nullFlavor="NA" /> <code codeSystem="local&quot ; code="GLUMON" displayName="GLUCOSE (POC)" /> < statusCode code="completed" /> <component> < observation moodCode="EVN" classCode="OBS"> < templateId root="2.16.840.1.766623.10.20.22.4.2" /> < id nullFlavor="NA" /> <code codeSystem="local" code="GLUMON" displayName="GLUCOSE (POC)" /> &lt ;statusCode code="completed" /> <effectiveTime value=& quot;726328432615" /> <value unit="mg/dL" xsi:type ="PQ" value="136" /> <interpretationCode codeSystem="local" code="*" /> < referenceRange> <observationRange> <text> 70-99</text> </observationRange> </ referenceRange> </observation> </component> </ organizer> </entry> <entry> <organizer moodCode="EVN " classCode="BATTERY"> <templateId root=" 2.16.840.1.324495.10.20.22.4.1" /> <id nullFlavor="NA&quot ; /> <code codeSystem="local" code="K" displayName="POTASSIUM" /> <statusCode code="completed " /> <component> <observation moodCode="EVN& quot; classCode="OBS"> <templateId root=" 2.16.840.1.330919.10.20.22.4.2" /> <id nullFlavor="NA& quot; /> <code codeSystem="local" code="K" displayName="POTASSIUM" /> <statusCode code=" completed" /> <effectiveTime value="757307661572" /> <value unit="mmol/L" xsi:type="PQ" value=& quot;4.5" /> <referenceRange> < observationRange> <text>3.5-5.3</text> </ observationRange> </referenceRange> </observation&gt ; </component> </organizer> </entry> <entry> <organizer moodCode="EVN" classCode="BATTERY"> <templateId root="2.16.840.1.659307.10.20.22.4.1" /> < id nullFlavor="NA" /> <code codeSystem="local" code="CREATT" displayName="CREATININE" /> < statusCode code="completed" /> <component> < observation moodCode="EVN" classCode="OBS"> < templateId root="2.16.840.1.956160.10.20.22.4.2" /> <id nullFlavor="NA" /> <code codeSystem="local" code="eGFR" displayName="EST GFR (MDRD)" /> < statusCode code="completed" /> <effectiveTime value=& quot;065334019739" /> <value unit="mL/min" xsi: type="PQ" value="> 60" /> < referenceRange> <observationRange> <text> > 59</text> </observationRange> </ referenceRange> </observation> </component> < component> <observation moodCode="EVN" classCode=" OBS"> <templateId root="2.16.840.1.998580.10.20.22.4.2& quot; /> <id nullFlavor="NA" /> <code codeSystem="local" code="CREAT" displayName="CREATININE " /> <statusCode code="completed" /> & lt;effectiveTime value="413024857856" /> <value unit=& quot;mg/dL" xsi:type="PQ" value="0.9" /> & lt;referenceRange> <observationRange> <text> 0.8-1.3</text> </observationRange> </ referenceRange> </observation> </component> </ organizer> </entry> <entry> <organizer moodCode="EVN " classCode="BATTERY"> <templateId root=" 2.16.840.1.192874.10.20.22.4.1" /> <id nullFlavor="NA" / > <code codeSystem="local" code="K" displayName=& quot;POTASSIUM" /> <statusCode code="completed" /> <component> <observation moodCode="EVN" classCode=& quot;OBS"> <templateId root="2.16.840.1.877964.10.20.22.4.2& quot; /> <id nullFlavor="NA" /> <code codeSystem="local" code="K" displayName="POTASSIUM&quot ; /> <statusCode code="completed" /> < effectiveTime value="035727266936" /> <value unit=&quot ;mmol/L" xsi:type="PQ" value="4.5" /> < referenceRange> <observationRange> <text> 3.5-5.3</text> </observationRange> </ referenceRange> </observation> </component> </ organizer> </entry> <entry> <organizer moodCode="EVN " classCode="BATTERY"> <templateId root=" 2.16.840.1.746662.10.20.22.4.1" /> <id nullFlavor="NA&quot ; /> <code codeSystem="local" code="CREATT" displayName="CREATININE" /> <statusCode code=" completed" /> <component> <observation moodCode=& quot;EVN" classCode="OBS"> <templateId root=" 2.16.840.1.565792.10.20.22.4.2" /> <id nullFlavor="NA& quot; /> <code codeSystem="local" code="eGFR&quot ; displayName="EST GFR (MDRD)" /> <statusCode code=& quot;completed" /> <effectiveTime value="285171863331& quot; /> <value unit="mL/min" xsi:type="PQ" value="> 60" /> <referenceRange> & lt;observationRange> <text>> 59</text> </observationRange> </referenceRange> </ observation> </component> <component> < observation moodCode="EVN" classCode="OBS"> < templateId root="2.16.840.1.502024.10.20.22.4.2" /> < id nullFlavor="NA" /> <code codeSystem="local" code="CREAT" displayName="CREATININE" /> < statusCode code="completed" /> <effectiveTime value=& quot;431471007311" /> <value unit="mg/dL" xsi:type ="PQ" value="0.9" /> <referenceRange> <observationRange> <text>0.8-1.3</text> & lt;/observationRange> </referenceRange> </ observation> </component> </organizer> </entry> & lt;entry> <organizer moodCode="EVN" classCode="BATTERY& quot;> <templateId root="2.16.840.1.440352.10.20.22.4.1" /& gt; <id nullFlavor="NA" /> <code codeSystem=" local" code="GLUMON" displayName="GLUCOSE (POC)" /> <statusCode code="completed" /> <component> <observation moodCode="EVN" classCode="OBS"> <templateId root="2.16.840.1.849830.10..22.4.2" /> <id nullFlavor="NA" /> <code codeSystem=" local" code="GLUMON" displayName="GLUCOSE (POC)" /> <statusCode code="completed" /> < effectiveTime value="539809549037" /> <value unit=&quot ;mg/dL" xsi:type="PQ" value="121" /> < interpretationCode codeSystem="local" code="*" /> <referenceRange> <observationRange> <text >70-99</text> </observationRange> </ referenceRange> </observation> </component> </ organizer> </entry> <entry> <organizermoodCode="EVN& quot; classCode="BATTERY"> <templateId root=" 2.16.840.1.914839...22.4.1" /> <id nullFlavor="NA&quot ; /> <code codeSystem="local" code="GLUMON" displayName="GLUCOSE (POC)" /> <statusCode code=" completed" /> <component> <observation moodCode=& quot;EVN" classCode="OBS"> <templateId root=" 2.16.840.1.391644.10.20.22.4.2" /> <id nullFlavor="NA& quot; /> <code codeSystem="local" code="GLUMON& quot; displayName="GLUCOSE (POC)" /> <statusCodecode=& quot;completed" /> <effectiveTime value="533929156999& quot; /> <value unit="mg/dL" xsi:type="PQ" value=& quot;121" /> <interpretationCode codeSystem="local&quot ; code="*" /> <referenceRange> < observationRange> <text>70-99</text> < /observationRange> </referenceRange> </observation& gt; </component> </organizer> </entry> <entry&gt ; <organizer moodCode="EVN"classCode="BATTERY"> <templateId root="2.16.840.1.645616.10.20.22.4.1" /> &lt ;id nullFlavor="NA" /> <code codeSystem="local" code="GLUMON" displayName="GLUCOSE (POC)" /> < statusCode code="completed" /> <component> < observation moodCode="EVN" classCode="OBS"> < templateId root="2.16.840.1.834296.10.20.22.4.2" /> < id nullFlavor="NA" /> <code codeSystem="local&quot ; code="GLUMON" displayName="GLUCOSE (POC)" /> & lt;statusCode code="completed" /> <effectiveTime value= "146827359540" /> <value unit="mg/dL" xsi: type="PQ" value="125" /> <interpretationCode codeSystem="local" code="*" /> < referenceRange> <observationRange> <text> 70-99</text> </observationRange> </referenceRange > </observation> </component> </organizer> </entry> <entry> <organizer moodCode="EVN" classCode="BATTERY"> <templateId root=" 2.16.840.1.379641.10.20.22.4.1" /> <id nullFlavor="NA&quot ; /> <code codeSystem="local" code="GLUMON" displayName="GLUCOSE (POC)" /> <statusCode code=" completed" /> <component> <observation moodCode=& quot;EVN" classCode="OBS"> <templateId root=" 2.16.840.1.959948.10.20.22.4.2" /> <id nullFlavor="NA& quot; /> <code codeSystem="local" code="GLUMON& quot; displayName="GLUCOSE (POC)" /> <statusCode code=& quot;completed" /> <effectiveTime value="830638194115& quot; /> <value unit="mg/dL" xsi:type="PQ" value="125" /> <interpretationCode codeSystem=" local"code="*" /> <referenceRange> & lt;observationRange> <text>70-99</text> </ observationRange> </referenceRange> </observation&gt ; </component> </organizer> </entry> <entry> <organizer moodCode="EVN" classCode="BATTERY"> <templateId root="2.16.840.1.442783.10.20.22.4.1" /> < id nullFlavor="NA" /> <code codeSystem="local" code="GLUMON" displayName="GLUCOSE (POC)" /> < statusCode code="completed" /> <component> < observation moodCode="EVN" classCode="OBS"> < templateId root="2.16.840.1.593353.10.20.22.4.2" /> < id nullFlavor="NA" /> <code codeSystem="local&quot ; code="GLUMON" displayName="GLUCOSE (POC)" /> & lt;statusCode code="completed" /> <effectiveTime value= "736867062423" /> <value unit="mg/dL" xsi: type="PQ" value="113" /> <interpretationCode codeSystem="local" code="*" /> <referenceRange > <observationRange> <text>70-99</text > </observationRange> </referenceRange> </observation> </component> </organizer> </ entry> <entry> <organizer moodCode="EVN" classCode=& quot;BATTERY"> <templateId root=" 2.16.840.1.587431.10.20.22.4.1" /> <id nullFlavor="NA&quot ; /> <code codeSystem="local" code="GLUMON" displayName="GLUCOSE (POC)" /> <statusCode code=" completed" /> <component> <observation moodCode=& quot;EVN" classCode="OBS"> <templateId root=" 2.16.840.1.269457.10.20.22.4.2" /> <id nullFlavor="NA& quot; /> <code codeSystem="local" code="GLUMON& quot; displayName="GLUCOSE (POC)" /> <statusCode code=& quot;completed" /> <effectiveTime value="732465047459& quot; /> <value unit="mg/dL" xsi:type="PQ" value= "113" /> <interpretationCode codeSystem="local& quot; code="*" /> <referenceRange> < observationRange> <text>70-99</text> < /observationRange> </referenceRange> </observation& gt; </component> </organizer> </entry> <entry&gt ; <organizer moodCode="EVN" classCode="BATTERY"> <templateId root="2.16.840.1.999471.10.20.22.4.1" /> & lt;id nullFlavor="NA" /> <code codeSystem="local&quot ; code="CAION" displayName="CALCIUM IONIZED" /> < statusCode code="completed" /> <component> < observation moodCode="EVN" classCode="OBS"> < templateId root="2.16.840.1.662297.10.20.22.4.2" /> <id nullFlavor="NA" /> <code codeSystem="local" code="CAION" displayName="CALCIUM IONIZED" /> & lt;statusCode code="completed" /> <effectiveTime value= "372967289644" /> <value unit="mg/dL" xsi: type="PQ" value="4.4" /> <interpretationCode codeSystem="local" code="*" /> < referenceRange> <observationRange> <text> 4.5-5.3</text> </observationRange> </ referenceRange> </observation> </component> </ organizer> </entry> <entry> <organizer moodCode="EVN " classCode="BATTERY"> <templateId root=" 2.16.840.1.394810.10.20.22.4.1" /> <id nullFlavor="NA&quot ; /> <code codeSystem="local" code="CBC" displayName="CBC" /> <statusCode code="completed&quot ; /> <component> <observation moodCode="EVN" classCode="OBS"> <templateId root=" 2.16.840.1.954130.10.20.22.4.2" /> <id nullFlavor="NA& quot; /> <code codeSystem="local" code="MCH" displayName="MEAN CELLHGB" /> <statusCode code=" completed" /> <effectiveTime value="701020305456" /> <value unit="pg" xsi:type="PQ" value=&quot ;32.3" /> <referenceRange> < observationRange> <text>27.0-33.0</text> </ observationRange> </referenceRange> </observation&gt ; </component> <component> <observation moodCode ="EVN" classCode="OBS"> <templateId root=& quot;[id number]" /> <id nullFlavor=&quot ;NA" /> <code codeSystem="local" code="[facility]C& quot; displayName="MEAN CELL HGB CONCENTRATION" /> < statusCode code="completed" /> <effectiveTime value=& quot;[id number]" /> <value unit="g/dl" xsi:type= "PQ" value="34.1" /> <referenceRange> <observationRange> <text>32.0-36.0</text> </observationRange> </referenceRange> </ observation> </component> <component> < observation moodCode="EVN" classCode="OBS"> < templateId root="[id number]" /> < id nullFlavor="NA" /> <code codeSystem="local&quot ; code="MCV" displayName="MEAN CELL VOLUME" /> & lt;statusCode code="completed" /> <effectiveTime value= "[id number]" /> <value unit="fl" xsi:type=& quot;PQ" value="94.7" /> <referenceRange> <observationRange> <text>80.0-100.0</text&gt ; </observationRange> </referenceRange> </ observation> </component> <component> < observation moodCode="EVN" classCode="OBS"> < templateId root="[id number]" /> < id nullFlavor="NA" /> <code codeSystem="local&quot ; code="RBC" displayName="RED BLOOD CELL" /> &lt ;statusCode code="completed" /> <effectiveTime value=& quot;945016091166" /> <value unit="m/cumm" xsi: type="PQ" value="2.82" /> <interpretationCode codeSystem="local" code="*" /> < referenceRange> <observationRange> <text> 4.00-6.00</text> </observationRange> </ referenceRange> </observation> </component> < component> <observation moodCode="EVN" classCode=" OBS"> <templateId root="2.16.840.1.523608.10.20.22.4.2& quot; /> <id nullFlavor="NA" /> <code codeSystem="local" code="RDW" displayName="RED CELL DISTRIBUTION WIDTH" /> <statusCode code="completed&quot ; /> <effectiveTime value="603381762234" /> <value unit="%" xsi:type="PQ" value="12.8& quot; /> <referenceRange> <observationRange> <text>11.0-15.6</text> </ observationRange> </referenceRange> </observation&gt ; </component> <component> <observation moodCode=& quot;EVN" classCode="OBS"> <templateId root=" 2.16.840.1.547082.10.20.22.4.2" /> <id nullFlavor="NA& quot; /> <code codeSystem="local" code="WBC" displayName="WHITE BLOOD CELL" /> <statusCode code=& quot;completed" /> <effectiveTime value="416532913549& quot; /> <valueunit="k/cumm" xsi:type="PQ" value="19.1" /> <interpretationCode codeSystem=" local" code="*" /> <referenceRange> < observationRange> <text>5.0-10.0</text> & lt;/observationRange> </referenceRange> </ observation> </component> <component> < observation moodCode="EVN" classCode="OBS"> < templateId root="2.16.840.1.139638.10.20.22.4.2" /> < id nullFlavor="NA" /> <code codeSystem="local&quot ; code="HGBT" displayName="HEMOGLOBIN" /> < statusCode code="completed" /> <effectiveTime value=& quot;585459501554" /> <value unit="gm/dL" xsi:type ="PQ" value="9.1" /> <interpretationCode codeSystem="local" code="*" /> < referenceRange> <observationRange> <text>14.0- 18.0</text> </observationRange> </ referenceRange> </observation> </component> < component> <observation moodCode="EVN" classCode=" OBS"> <templateId root="2.16.840.1.129958.10.20.22.4.2& quot; /> <id nullFlavor="NA" /> <code codeSystem="local" code="HCTT" displayName="HEMATOCRIT& quot; /> <statusCode code="completed" /> < effectiveTime value="905096348036" /> <value unit=&quot ;%" xsi:type="PQ" value="26.7" /> & lt;interpretationCode codeSystem="local" code="*" /> <referenceRange> <observationRange> &lt ;text>40.0-54.0</text> </observationRange> & lt;/referenceRange> </observation> </component> <component> <observation moodCode="EVN" classCode=& quot;OBS"> <templateId root=" 2.16.840.1.153697.10.20.22.4.2" /> <id nullFlavor="NA& quot; /> <code codeSystem="local" code="PLT" displayName="PLATELET COUNT" /> <statusCode code=" completed" /> <effectiveTime value="672789519549" /> <value unit="k/cumm" xsi:type="PQ" value="56& quot; /> <interpretationCode codeSystem="local" code=& quot;*" /> <referenceRange> < observationRange> <text>150-450</text> & lt;/observationRange> </referenceRange> </ observation> </component> </organizer> </entry> & lt;entry> <organizer moodCode="EVN" classCode="BATTERY& quot;> <templateId root="2.16.840.1.225165.10.20.22.4.1" /& gt; <id nullFlavor="NA" /> <code codeSystem=" local" code="METAB" displayName="METABOLIC PANEL, BASIC&quot ; /> <statusCode code="completed" /> <component& gt; <observation moodCode="EVN" classCode="OBS"&gt ; <templateId root="2.16.840.1.589169.10.20.22.4.2" /> <id nullFlavor="NA" /> <code codeSystem=" local" code="K" displayName="POTASSIUM" /> <statusCode code="completed" /> <effectiveTime value ="402566287769" /> <value unit="mmol/L" xsi: type="PQ" value="4.3" /> <referenceRange> <observationRange> <text>3.5-5.3</text> </observationRange> </referenceRange> </ observation> </component> <component> < observation moodCode="EVN" classCode="OBS"> < templateId root="2.16.840.1.146235.10.20.22.4.2" /> < id nullFlavor="NA" /> <code codeSystem="local&quot ; code="eGFR" displayName="EST GFR (MDRD)" /> & lt;statusCode code="completed" /> <effectiveTime value= "321021742607" /> <value unit="mL/min" xsi: type="PQ" value="> 60" /> < referenceRange> <observationRange> <text> > 59</text> </observationRange> </ referenceRange> </observation> </component> < component> <observation moodCode="EVN" classCode=" OBS"> <templateId root="2.16.840.1.873237.10.20.22.4.2" /& gt; <id nullFlavor="NA" /> <code codeSystem ="local" code="GAP" displayName="ANION GAP" /> <statusCode code="completed" /> < effectiveTime value="953101415281" /> <value unit=&quot ;mmol/L" xsi:type="PQ" value="8" /> < referenceRange> <observationRange> <text> 5-15</text> </observationRange> </ referenceRange> </observation> </component> < component> <observation moodCode="EVN" classCode=" OBS"> <templateId root="2.16.840.1.416322.10..22.4.2& quot; /> <id nullFlavor="NA" /> <code codeSystem= "local" code="GLU" displayName="GLUCOSE" /> <statusCode code="completed" /> <effectiveTime value="810878571494" /> <value unit="mg/dL" xsi:type="PQ" value="122" /> < interpretationCode codeSystem="local" code="*" /> < referenceRange> <observationRange> <text> 70-99</text> </observationRange> </ referenceRange> </observation> </component> < component> <observation moodCode="EVN" classCode=" OBS"> <templateId root="2.16.840.1.176351.10.20.22.4.2& quot; /> <id nullFlavor="NA" /> <code codeSystem="local" code="CA" displayName="CALCIUM&quot ; /> <statusCode code="completed" /> < effectiveTime value="635809269777" /> <value unit=&quot ;mg/dL" xsi:type="PQ" value="8.1" /> < interpretationCodecodeSystem="local" code="*" /> <referenceRange> <observationRange> < text>8.5-10.1</text> </observationRange> < /referenceRange> </observation> </component> &lt ;component> <observation moodCode="EVN" classCode=" OBS"> <templateId root="2.16.840.1.240604.10.20.22.4.2& quot; /> <id nullFlavor="NA" /> <code codeSystem="local" code="BUN" displayName="BLOOD UREA NITROGEN" /> <statusCode code="completed" /> <effectiveTime value="266110574319" /> < value unit="mg/dL" xsi:type="PQ" value="24" /> <interpretationCode codeSystem="local" code="*&quot ; /> <referenceRange> <observationRange> <text>7-20</text> </observationRange> & lt;/referenceRange> </observation> </component> <component> <observation moodCode="EVN" classCode=& quot;OBS"> <templateId root=" 2.16.840.1.828595.10.20.22.4.2" /> <id nullFlavor="NA& quot; /> <codecodeSystem="local" code="CREAT&quot ; displayName="CREATININE" /> <statusCode code="completed& quot; /> <effectiveTime value="878473871059" /> <value unit="mg/dL" xsi:type="PQ" value="1.0& quot; /> <referenceRange> <observationRange> <text>0.8-1.3</text> </observationRange& gt; </referenceRange> </observation> </ component> <component> <observation moodCode="EVN& quot; classCode="OBS"> <templateId root=" 2.16.840.1.439409.10.20.22.4.2" /> <id nullFlavor="NA& quot; /> <code codeSystem="local" code="NA" displayName="SODIUM" /> <statusCode code=" completed" /> <effectiveTime value="106245005454" /> <value unit="mmol/L" xsi:type="PQ" value=& quot;135" /> <referenceRange> < observationRange> <text>135-148</text> </ observationRange> </referenceRange> </observation&gt ; </component> <component> <observation moodCode ="EVN" classCode="OBS"> <templateId root=& quot;2.16.840.1.400289.10.20.22.4.2" /><id nullFlavor="NA" /> <code codeSystem="local" code="CL" displayName="CHLORIDE" /> <statusCode code=" completed" /> <effectiveTime value="549904987800" / > <value unit="mmol/L" xsi:type="PQ" value=& quot;104" /> <referenceRange><observationRange> <text>98-110</text> </observationRange> </referenceRange> </observation> </ component> <component> <observation moodCode="EVN& quot; classCode="OBS"> <templateId root=" 2.16.840.1.822895.10.20.22.4.2" /> <id nullFlavor="NA& quot; /> <code codeSystem="local" code="CO2" displayName="CARBON DIOXIDE" /> <statusCode code=" completed" /> <effectiveTime value="600369022646" /> <value unit="mmol/L" xsi:type="PQ" value=& quot;23" /> <referenceRange> < observationRange> <text>21-32</text> < /observationRange> </referenceRange> </observation& gt; </component> </organizer> </entry> <entry&gt ; <organizer moodCode="EVN" classCode="BATTERY"> <templateId root="2.16.840.1.081506.10.20.22.4.1" /> < id nullFlavor="NA" /> <code codeSystem="local" code="MAG" displayName="MAGNESIUM" /> < statusCode code="completed" /> <component> < observation moodCode="EVN" classCode="OBS"> < templateId root="2.16.840.1.959177.10.20.22.4.2" /> < id nullFlavor="NA" /> <code codeSystem="local" code="MAG" displayName="MAGNESIUM" /> < statusCode code="completed" /> <effectiveTime value=& quot;657055561825" /> <value unit="mg/dL" xsi:type ="PQ" value="1.9" /> <referenceRange> <observationRange> <text>1.8-2.4</text> </observationRange> </referenceRange> </ observation> </component> </organizer> </entry> & lt;entry> <organizer moodCode="EVN" classCode="BATTERY& quot;> <templateId root="2.16.840.1.144026.10.20.22.4.1" /& gt; <id nullFlavor="NA" /> <code codeSystem=" local" code="CAION" displayName="CALCIUM IONIZED" /&gt ; <statusCode code="completed" /> <component> <observation moodCode="EVN" classCode="OBS"> <templateId root="2.16.840.1.112042.10.20.22.4.2" /> <id nullFlavor="NA" /> <codecodeSystem=" local" code="CAION" displayName="CALCIUM IONIZED" /&gt ; <statusCode code="completed" /> < effectiveTime value="200296731839" /> <value unit=&quot ;mg/dL" xsi:type="PQ" value="4.4" /> < interpretationCode codeSystem="local" code="*" /> < referenceRange> <observationRange> <text> 4.5-5.3</text> </observationRange> </ referenceRange> </observation> </component> </ organizer> </entry> <entry> <organizer moodCode="EVN " classCode="BATTERY"> <templateId root=" 2.16.840.1.247055.10.20.22.4.1" /> <id nullFlavor="NA&quot ; /> <code codeSystem="local" code="CBC" displayName="CBC" /> <statusCode code="completed&quot ; /> <component> <observation moodCode="EVN" classCode="OBS"> <templateId root=" 2.16.840.1.232184.10..22.4.2" /> <id nullFlavor="NA& quot; /> <code codeSystem="local" code="MCH" displayName="MEAN CELL HGB" /> <statusCode code=" completed" /> <effectiveTime value="747604763672" /> <value unit="pg" xsi:type="PQ" value=&quot ;32.3" /> <referenceRange> < observationRange> <text>27.0-33.0</text> </observationRange> </referenceRange> </ observation> </component> <component> < observation moodCode="EVN" classCode="OBS"> < templateId root="2.16.840.1.381410.10..22.4.2" /> < id nullFlavor="NA" /> <code codeSystem="local&quot ; code="MCHC" displayName="MEAN CELL HGB CONCENTRATION" /&gt ; <statusCode code="completed" /> < effectiveTime value="994668970882" /> <value unit=&quot ;g/dl" xsi:type="PQ" value="34.1" /> < referenceRange> <observationRange> <text> 32.0-36.0</text> </observationRange> </ referenceRange> </observation> </component> < component> <observation moodCode="EVN" classCode=" OBS"> <templateId root="2.16.840.1.306272.10.20.22.4.2& quot; /> <id nullFlavor="NA" /> <code codeSystem="local" code="MCV" displayName="MEAN CELL VOLUME" /> <statusCode code="completed" /> <effectiveTime value="151640474574" /> <value unit="fl" xsi:type="PQ" value="94.7" /> <referenceRange> <observationRange> < text>80.0-100.0</text> </observationRange> & lt;/referenceRange> </observation> </component> <component> <observation moodCode="EVN" classCode=& quot;OBS"> <templateId root=" 2.16.840.1.049152.10.20.22.4.2" /> <id nullFlavor="NA& quot; /> <code codeSystem="local" code="RBC" displayName="RED BLOOD CELL" /> <statusCode code=" completed" /> <effectiveTime value="175574362564" /> <value unit="m/cumm" xsi:type="PQ" value=& quot;2.82" /> <interpretationCode codeSystem="local& quot; code="*" /> <referenceRange> < observationRange> <text>4.00-6.00</text> </ observationRange> </referenceRange> </observation&gt ; </component> <component> <observation moodCode ="EVN" classCode="OBS"> <templateId root=& quot;2.16.840.1.159576.10.20.22.4.2" /> <id nullFlavor=&quot ;NA" /> <code codeSystem="local" code="RDW& quot; displayName="RED CELL DISTRIBUTION WIDTH" /> < statusCode code="completed" /> <effectiveTime value=& quot;081280048775" /> <value unit="%" xsi: type="PQ" value="12.8" /> <referenceRange&gt ; <observationRange> <text>11.0-15.6</text&gt ; </observationRange> </referenceRange> & lt;/observation> </component> <component> < observation moodCode="EVN" classCode="OBS"> < templateId root="2.16.840.1.158519.10.20.22.4.2" /> < id nullFlavor="NA" /> <code codeSystem="local&quot ; code="WBC" displayName="WHITE BLOOD CELL" /> & lt;statusCode code="completed" /> <effectiveTime value= "418553043480" /> <value unit="k/cumm" xsi: type="PQ" value="19.1" /> < interpretationCode codeSystem="local" code="*" /> <referenceRange> <observationRange> < text>5.0-10.0</text> </observationRange> < /referenceRange> </observation> </component> &lt ;component> <observation moodCode="EVN" classCode=" OBS"> <templateId root="2.16.840.1.810493.10.20.22.4.2& quot; /> <id nullFlavor="NA" /> <code codeSystem="local" code="HGBT" displayName="HEMOGLOBIN& quot; /> <statusCode code="completed" /> & lt;effectiveTime value="755313984910" /> <value unit="gm/dL " xsi:type="PQ" value="9.1" /> < interpretationCode codeSystem="local" code="*" /> <referenceRange> <observationRange> < text>14.0-18.0</text> </observationRange> &lt ;/referenceRange> </observation> </component> & lt;component> <observation moodCode="EVN" classCode=&quot ;OBS"> <templateId root="2.16.840.1.263563.10.20.22.4.2 " /> <id nullFlavor="NA" /> <code codeSystem="local" code="HCTT" displayName="HEMATOCRIT& quot; /> <statusCode code="completed" /> < effectiveTime value="557209107247" /> <value unit=&quot ;%" xsi:type="PQ" value="26.7" /> & lt;interpretationCode codeSystem="local" code="*" /> <referenceRange> <observationRange> & lt;text>40.0-54.0</text> </observationRange> </ referenceRange> </observation> </component> < component> <observation moodCode="EVN" classCode=" OBS"> <templateId root="2.16.840.1.737950.10.20.22.4.2& quot; /> <id nullFlavor="NA" /> <code codeSystem="local" code="PLT" displayName="PLATELET COUNT" /> <statusCode code="completed" /> <effectiveTime value="785413830110" /> <value unit="k/cumm" xsi:type="PQ" value="56" /> <interpretationCode codeSystem="local" code="*" /&gt ; <referenceRange> <observationRange> <text>150-450</text> </observationRange> </referenceRange> </observation> </component> &lt ;/organizer> </entry> <entry> <organizer moodCode="EVN " classCode="BATTERY"> <templateId root=" 2.16.840.1.018043.10.20.22.4.1" /> <id nullFlavor="NA&quot ; /> <code codeSystem="local" code="METAB" displayName="METABOLIC PANEL, BASIC" /> <statusCode code=& quot;completed" /> <component> <observation moodCode="EVN" classCode="OBS"> <templateId root="2.16.840.1.077161.10.20.22.4.2" /> <id nullFlavor ="NA" /> <code codeSystem="local" code=" K" displayName="POTASSIUM" /><statusCode code=" completed" /> <effectiveTime value="458446530320" /> <value unit="mmol/L" xsi:type="PQ" value=& quot;4.3" /> <referenceRange> < observationRange> <text>3.5-5.3</text> & lt;/observationRange> </referenceRange> </ observation> </component> <component> < observation moodCode="EVN" classCode="OBS"> < templateId root="2.16.840.1.885976.10..22.4.2" /> < id nullFlavor="NA" /> <code codeSystem="local&quot ; code="eGFR" displayName="EST GFR (MDRD)" /> & lt;statusCodecode="completed" /> <effectiveTime value=& quot;125397367547" /> <value unit="mL/min" xsi:type=& quot;PQ" value="> 60" /> <referenceRange> <observationRange> <text>> 59</ text> </observationRange> </referenceRange> </observation> </component> <component> <observation moodCode="EVN" classCode="OBS"> <templateId root="2.16.840.1.989434.10..22.4.2" /> <id nullFlavor="NA" /> <code codeSystem=" local" code="GAP" displayName="ANION GAP" /> <statusCode code="completed" /> <effectiveTime value="104113105265" /> <value unit="mmol/L" xsi:type="PQ" value="8" /> <referenceRange&gt ; <observationRange> <text>5-15</text> </observationRange> </referenceRange> </ observation> </component> <component> < observation moodCode="EVN" classCode="OBS"> < templateId root="2.16.840.1.238671.10.20.22.4.2" /> < id nullFlavor="NA" /> <code codeSystem="local&quot ; code="GLU" displayName="GLUCOSE" /> < statusCode code="completed" /> <effectiveTime value=" 310514914932" /> <value unit="mg/dL" xsi:type=& quot;PQ" value="122" /> <interpretationCode codeSystem="local" code="*" /> < referenceRange> <observationRange> <text> 70-99</text> </observationRange> </ referenceRange> </observation> </component> < component> <observation moodCode="EVN" classCode=" OBS"> <templateId root="2.16.840.1.516079.10.20.22.4.2& quot; /> <id nullFlavor="NA" /> <code codeSystem="local" code="CA" displayName="CALCIUM&quot ; /> <statusCode code="completed" /> < effectiveTime value="895574100800" /> <value unit=&quot ;mg/dL" xsi:type="PQ" value="8.1" /> < interpretationCode codeSystem="local" code="*" /> &lt ;referenceRange> <observationRange> <text&gt ;8.5-10.1</text> </observationRange> </ referenceRange> </observation> </component> < component> <observation moodCode="EVN" classCode=" OBS"> <templateId root="2.16.840.1.108630.10.20.22.4.2& quot; /> <id nullFlavor="NA" /> <code codeSystem="local" code="BUN" displayName="BLOOD UREA NITROGEN" /> <statusCode code="completed" /> <effectiveTime value="915811007571" /> <value unit=& quot;mg/dL" xsi:type="PQ" value="24" /> &lt ;interpretationCode codeSystem="local" code="*" /> <referenceRange> <observationRange> < text>7-20</text> </observationRange> </ referenceRange> </observation> </component> < component> <observation moodCode="EVN" classCode=" OBS"> <templateId root="2.16.840.1.226253.10.20.22.4.2& quot; /> <id nullFlavor="NA" /> <code codeSystem="local" code="CREAT" displayName="CREATININE " /> <statusCode code="completed" />< effectiveTime value="198588732024" /> <value unit=&quot ;mg/dL" xsi:type="PQ" value="1.0" /> < referenceRange> <observationRange> <text> 0.8-1.3</text> </observationRange> </ referenceRange> </observation> </component> < component> <observation moodCode="EVN" classCode=" OBS"> <templateId root="2.16.840.1.544612.10..22.4.2& quot; /> <id nullFlavor="NA"/> <code codeSystem="local" code="NA" displayName="SODIUM" /> <statusCode code="completed" /> < effectiveTime value="529526723902" /> <value unit=&quot ;mmol/L" xsi:type="PQ" value="135" /> < referenceRange> <observationRange> <text>135-148< /text> </observationRange> </referenceRange> </observation> </component> <component> <observation moodCode="EVN" classCode="OBS"> <templateId root="2.16.840.1.652001.10..22.4.2" /> <id nullFlavor="NA" /> <code codeSystem=" local" code="CL" displayName="CHLORIDE" /> <statusCode code="completed" /> <effectiveTime value ="239628425799"/> <value unit="mmol/L" xsi: type="PQ" value="104" /> <referenceRange> <observationRange> <text>98-110</text&gt ; </observationRange> </referenceRange> & lt;/observation> </component> <component> < observation moodCode="EVN" classCode="OBS"> < templateId root="2.16.840.1.799316.10.20.22.4.2" /> < id nullFlavor="NA" /> <code codeSystem="local&quot ; code="CO2" displayName="CARBON DIOXIDE" /> &lt ;statusCode code="completed" /> <effectiveTime value=& quot;434554290711" /> <value unit="mmol/L" xsi: type="PQ" value="23" /> <referenceRange> <observationRange> <text>21-32</text> </observationRange> </referenceRange> </ observation> </component> </organizer> </entry> & lt;entry> <organizer moodCode="EVN" classCode="BATTERY& quot;> <templateId root="2.16.840.1.127389.10.20.22.4.1" /& gt; <id nullFlavor="NA" /> <code codeSystem=" local" code="MAG" displayName="MAGNESIUM" /> & lt;statusCode code="completed" /> <component> &lt ;observation moodCode="EVN" classCode="OBS"> &lt ;templateId root="2.16.840.1.800659.10.20.22.4.2" /><id nullFlavor="NA" /> <code codeSystem="local" code="MAG" displayName="MAGNESIUM" /> < statusCode code="completed" /> <effectiveTime value=& quot;581379322495" /> <value unit="mg/dL" xsi:type ="PQ" value="1.9" /> <referenceRange> < observationRange> <text>1.8-2.4</text> & lt;/observationRange> </referenceRange> </ observation> </component> </organizer> </entry> & lt;entry> <organizer moodCode="EVN" classCode="BATTERY& quot;> <templateId root="2.16.840.1.754591.10.20.22.4.1" /& gt; <id nullFlavor="NA" /> <code codeSystem=" local" code="GLUMON" displayName="GLUCOSE (POC)" /> <statusCode code="completed" /> <component> <observation moodCode="EVN" classCode="OBS"> <templateId root="2.16.840.1.230622.10.20.22.4.2" /> <id nullFlavor="NA" /> <code codeSystem="local& quot; code="GLUMON" displayName="GLUCOSE (POC)" /> <statusCode code="completed" /> <effectiveTime value=& quot;528204222848" /> <value unit="mg/dL" xsi:type ="PQ" value="105" /> <interpretationCode codeSystem="local" code="*" /> < referenceRange> <observationRange> <text> 70-99</text> </observationRange> </ referenceRange> </observation> </component> </ organizer> </entry> <entry> <organizer moodCode="EVN " classCode="BATTERY"><templateId root=" 2.16.840.1.098451.10.20.22.4.1" /> <id nullFlavor="NA&quot ; /> <code codeSystem="local" code="GLUMON" displayName="GLUCOSE (POC)" /> <statusCode code=" completed" /> <component> <observation moodCode=" EVN" classCode="OBS"> <templateId root=" 2.16.840.1.196801.10.20.22.4.2" /> <id nullFlavor="NA& quot; /> <code codeSystem="local" code="GLUMON&quot ; displayName="GLUCOSE (POC)" /> <statusCode code=&quot ;completed" /> <effectiveTime value="431434645355&quot ; /> <value unit="mg/dL" xsi:type="PQ" value= "105" /> <interpretationCode codeSystem="local& quot; code="*" /> <referenceRange> < observationRange> <text>70-99</text> < /observationRange> </referenceRange> </observation& gt; </component> </organizer> </entry> <entry&gt ; <organizer moodCode="EVN" classCode="BATTERY"> <templateId root="2.16.840.1.930274.10.20.22.4.1" /> & lt;id nullFlavor="NA" /> <code codeSystem="local&quot ; code="HEPLT" displayName="HEPARIN INDUCED PLATELET AB" /& gt; <statusCode code="completed" /> <component> <observation moodCode="EVN" classCode="OBS"> <templateId root="2.16.840.1.814289.10.20.22.4.2" /> <id nullFlavor="NA" /> <code codeSystem=& quot;local" code="HEPLT" displayName="HEPARIN INDUCED PLATELET AB" /> <statusCode code="completed" /&gt ; <effectiveTime value="481702464499" /> < value unit="OD" xsi:type="PQ" value="0.073" /> <referenceRange> <observationRange> < text>0.000-0.400</text> </observationRange> & lt;/referenceRange> </observation> </component> & lt;/organizer> </entry> <entry> <organizer moodCode=&quot ;EVN" classCode="BATTERY"> <templateId root=" 2.16.840.1.760323.10.20.22.4.1" /> <id nullFlavor="NA&quot ; /> <code codeSystem="local" code="HEPLT" displayName="HEPARIN INDUCED PLATELET AB" /> <statusCode code="completed" /> <component> <observation moodCode="EVN" classCode="OBS"> <templateId root="2.16.840.1.848334.10.20.22.4.2" /> <id nullFlavor ="NA" /> <code codeSystem="local" code=" HEPLT" displayName="HEPARIN INDUCED PLATELET AB" /> & lt;statusCode code="completed" /><effectiveTime value=" 605132034504" /> <value unit="OD" xsi:type=" PQ" value="0.073" /> <referenceRange> <observationRange> <text>0.000-0.400</text> </observationRange> </referenceRange> </ observation> </component> </organizer> </entry> & lt;entry> <organizer moodCode="EVN" classCode="BATTERY& quot;> <templateId root="2.16.840.1.883302.10.20.22.4.1" /& gt; <id nullFlavor="NA" /> <code codeSystem=" local" code="CAION" displayName="CALCIUM IONIZED" /&gt ; <statusCode code="completed" /> <component> <observation moodCode="EVN" classCode="OBS"> &lt ;templateId root="[id number]" /> < id nullFlavor="NA" /> <code codeSystem="local&quot ; code="CAION" displayName="CALCIUM IONIZED" /> <statusCode code="completed" /> <effectiveTime value ="[id number]" /> <value unit="mg/dL" xsi: type="PQ" value="4.7" /> <referenceRange> <observationRange> <text>4.5-5.3</text& gt; </observationRange> </referenceRange> </ observation> </component> </organizer> </entry> & lt;entry> <organizer moodCode="EVN" classCode="BATTERY& quot;> <templateId root="[id number]" /& gt; <id nullFlavor="NA" /> <code codeSystem=" local" code="METAB" displayName="METABOLIC PANEL, BASIC&quot ; /> <statusCode code="completed" /> <component& gt; <observation moodCode="EVN" classCode="OBS"&gt ; <templateId root="2.16.840.1.050228.10.20.22.4.2" /> <id nullFlavor="NA" /> <code codeSystem=" local" code="K" displayName="POTASSIUM" /> <statusCode code="completed" /> <effectiveTime value ="706257008040" /> <value unit="mmol/L" xsi: type="PQ" value="4.7" /> <referenceRange> <observationRange> <text>3.5-5.3</text& gt; </observationRange> </referenceRange> </observation> </component> <component>< observation moodCode="EVN" classCode="OBS"> < templateId root="2.16.840.1.777863.10.20.22.4.2" /> < id nullFlavor="NA" /> <code codeSystem="local" code ="eGFR" displayName="EST GFR (MDRD)" /> < statusCode code="completed" /> <effectiveTime value=& quot;668148954458" /> <value unit="mL/min" xsi: type="PQ" value="> 60" /> < referenceRange> <observationRange> <text>&amp ;gt; 59</text> </observationRange> </ referenceRange> </observation> </component> < component> <observation moodCode="EVN" classCode=" OBS"> <templateId root="2.16.840.1.504514.10.20.22.4.2& quot; /> <id nullFlavor="NA" /> <code codeSystem= "local" code="GAP" displayName="ANION GAP" /> <statusCode code="completed" /> < effectiveTime value="506084652730" /> <value unit=&quot ;mmol/L" xsi:type="PQ" value="7" /> < referenceRange> <observationRange> <text> 5-15</text> </observationRange> </ referenceRange> </observation> </component> < component> <observation moodCode="EVN" classCode=" OBS"> <templateId root="2.16.840.1.160254.10.20.22.4.2& quot; /> <id nullFlavor="NA" /> <code codeSystem="local" code="GLU" displayName="GLUCOSE&quot ; /> <statusCode code="completed" /> < effectiveTime value="092348737857" /><value unit="mg/dL& quot; xsi:type="PQ" value="95" /> < referenceRange> <observationRange> <text> 70-99</text> </observationRange> </referenceRange&gt ; </observation> </component> <component> <observation moodCode="EVN" classCode="OBS"> <templateId root="2.16.840.1.376849.10.20.22.4.2" /> < id nullFlavor="NA" /> <code codeSystem="local&quot ; code="CA" displayName="CALCIUM" /> < statusCode code="completed" /> <effectiveTime value=& quot;173104443425" /> <value unit="mg/dL" xsi:type ="PQ" value="8.0" /> <interpretationCode codeSystem="local" code="*" /> < referenceRange> <observationRange> <text> 8.5-10.1</text> </observationRange> </referenceRange& gt; </observation> </component> <component> <observation moodCode="EVN" classCode="OBS"> <templateIdroot="2.16.840.1.243123.10.20.22.4.2" /> <id nullFlavor="NA" /> <code codeSystem=" local" code="BUN" displayName="BLOOD UREA NITROGEN" /& gt; <statusCode code="completed" /> < effectiveTime value="614619278286" /> <value unit=&quot ;mg/dL" xsi:type="PQ" value="31" /> < interpretationCode codeSystem="local" code="*" /> <referenceRange> <observationRange> < text>7-20</text> </observationRange> </ referenceRange> </observation> </component> < component> <observation moodCode="EVN" classCode=" OBS"> <templateId root="2.16.840.1.923994.10.20.22.4.2& quot; /> <id nullFlavor="NA" /> <code codeSystem="local" code="CREAT" displayName="CREATININE " /> <statusCode code="completed" /> & lt;effectiveTime value="749775904451" /> <value unit=& quot;mg/dL" xsi:type="PQ" value="0.8" /> < referenceRange> <observationRange> <text> 0.8-1.3</text> </observationRange> </ referenceRange> </observation> </component> < component> <observation moodCode="EVN" classCode=" OBS"> <templateId root="2.16.840.1.534048.10.20.22.4.2& quot; /> <id nullFlavor="NA" /> <code codeSystem="local" code="NA" displayName="SODIUM" /> <statusCode code="completed" /> < effectiveTime value="241689895957" /> <value unit=&quot ;mmol/L" xsi:type="PQ" value="139" /> < referenceRange> <observationRange> <text> 135-148</text> </observationRange> </ referenceRange> </observation> </component> < component> <observation moodCode="EVN" classCode=" OBS"> <templateId root="2.16.840.1.055945.10.20.22.4.2& quot; /> <id nullFlavor="NA" /> <code codeSystem="local" code="CL" displayName="CHLORIDE&quot ; /> <statusCode code="completed" /> < effectiveTime value="168325379025" /> <value unit=&quot ;mmol/L" xsi:type="PQ" value="105" /> < referenceRange> <observationRange> <text> 98-110</text> </observationRange> </referenceRange& gt; </observation> </component> <component> <observation moodCode="EVN" classCode="OBS"> <templateId root="2.16.840.1.839881.10.20.22.4.2" /> <id nullFlavor="NA" /> <code codeSystem=&quot ;local" code="CO2" displayName="CARBON DIOXIDE" /> <statusCode code="completed" /> < effectiveTime value="912547614122" /> <value unit=&quot ;mmol/L" xsi:type="PQ" value="27" /> < referenceRange> <observationRange> <text>21-32& lt;/text> </observationRange> </referenceRange& gt; </observation> </component> </organizer> & lt;/entry> <entry> <organizer moodCode="EVN" classCode ="BATTERY"> <templateId root=" 2.16.840.1.190580.10.20.22.4.1" /> <id nullFlavor="NA&quot ; /> <code codeSystem="local" code="MAG" displayName="MAGNESIUM" /> <statusCode code="completed " /> <component> <observation moodCode="EVN& quot; classCode="OBS"> <templateId root=" 2.16.840.1.174895.10.20.22.4.2" /> <id nullFlavor="NA& quot; /> <code codeSystem="local" code="MAG" displayName="MAGNESIUM" /><statusCode code="completed&quot ; /> <effectiveTime value="546944505509" /> <value unit="mg/dL" xsi:type="PQ" value="2.1&quot ; /> <referenceRange> <observationRange> <text>1.8-2.4</text> </observationRange> </referenceRange> </observation> </ component> </organizer> </entry> <entry> < organizer moodCode="EVN" classCode="BATTERY"> < templateId root="2.16.840.1.900821.10.20.22.4.1" /> <id nullFlavor="NA" /> <code codeSystem="local" code= "CBC" displayName="CBC" /> <statusCode code=&quot ;completed" /> <component> <observation moodCode=& quot;EVN" classCode="OBS"> <templateId root=" 2..840.1.807684.10..22.4.2" /> <id nullFlavor="NA& quot; /> <code codeSystem="local" code="MCH" displayName="MEAN CELL HGB" /> <statusCode code=" completed" /> <effectiveTime value="437550139518" /> <value unit="pg" xsi:type="PQ" value=&quot ;34.3" /> <interpretationCode codeSystem="local" code="*" /> <referenceRange> < observationRange> <text>27.0-33.0</text> </observationRange> </referenceRange> </ observation> </component> <component> < observation moodCode="EVN" classCode="OBS"> < templateId root="2.16.840.1.367782.10.20.22.4.2" /> < id nullFlavor="NA" /> <code codeSystem="local&quot ; code="MCHC" displayName="MEAN CELL HGB CONCENTRATION" /&gt ; <statusCode code="completed"/> < effectiveTime value="172050061425" /> <value unit=&quot ;g/dl" xsi:type="PQ" value="35.5" /> < referenceRange> <observationRange> <text>32.0- 36.0</text> </observationRange> </ referenceRange> </observation> </component> < component> <observation moodCode="EVN" classCode=" OBS"> <templateId root="2.16.840.1.728468.10.20.22.4.2& quot; /> <id nullFlavor="NA" /> <code codeSystem="local" code="MCV" displayName="MEAN CELL VOLUME" /> <statusCode code="completed" /> &lt ;effectiveTime value="306490463984" /> <value unit=& quot;fl" xsi:type="PQ" value="96.8" /> < referenceRange> <observationRange> <text> 80.0-100.0</text> </observationRange> </ referenceRange> </observation> </component> < component> <observation moodCode="EVN" classCode=" OBS"> <templateId root="2.16.840.1.815582.10.20.22.4.2& quot; /> <id nullFlavor="NA" /> <code codeSystem="local" code="RBC" displayName="RED BLOOD CELL" /> <statusCode code="completed" /> <effectiveTime value="110398495493" /> <value unit="m/cumm" xsi:type="PQ" value="2.79" /> <interpretationCode codeSystem="local" code="*" /& gt; <referenceRange> <observationRange> <text >4.00-6.00</text> </observationRange> </ referenceRange> </observation> </component> < component> <observation moodCode="EVN" classCode=" OBS"> <templateId root="2.16.840.1.479229.10.20.22.4.2& quot; /> <id nullFlavor="NA" /> <code codeSystem="local" code="RDW" displayName="RED CELL DISTRIBUTION WIDTH"/> <statusCode code="completed&quot ; /> <effectiveTime value="309543789420" /> <value unit="%" xsi:type="PQ" value="13.6& quot; /> <referenceRange> <observationRange> <text>11.0-15.6</text> </observationRange> </referenceRange> </observation> </component&gt ; <component> <observation moodCode="EVN" classCode="OBS"> <templateId root=" 2.16.840.1.867108.10.20.22.4.2" /> <id nullFlavor="NA& quot; /> <code codeSystem="local" code="WBC" displayName="WHITE BLOOD CELL" /> <statusCode code=" completed" /> <effectiveTime value="534882882890" /> <value unit="k/cumm" xsi:type="PQ" value=& quot;12.0" /> <interpretationCode codeSystem="local& quot; code="*" /> <referenceRange> < observationRange> <text>5.0-10.0</text> & lt;/observationRange> </referenceRange> </ observation> </component> <component> < observation moodCode="EVN" classCode="OBS"> < templateId root="2.16.840.1.663838.10.20.22.4.2" /> < id nullFlavor="NA" /> <code codeSystem="local&quot ; code="HGBT" displayName="HEMOGLOBIN" /> < statusCode code="completed" /> <effectiveTime value=& quot;844454586040" /> <value unit="gm/dL" xsi:type ="PQ" value="9.6" /> <interpretationCode codeSystem="local" code="*" /> < referenceRange> <observationRange> <text>14.0- 18.0</text> </observationRange> </ referenceRange> </observation> </component> < component> <observation moodCode="EVN" classCode=" OBS"> <templateId root="2.16.840.1.064684.10.20.22.4.2& quot; /> <id nullFlavor="NA" /> <code codeSystem="local" code="HCTT" displayName="HEMATOCRIT& quot; /> <statusCode code="completed" /> & lt;effectiveTime value="" /> <value unit=& quot;%" xsi:type="PQ" value="27.0" /> <interpretationCode codeSystem="local" code="*" /&gt ; <referenceRange> <observationRange> <text>40.0-54.0</text> </observationRange> </referenceRange> </observation> </component&gt ; <component> <observation moodCode="EVN" classCode=& quot;OBS"> <templateId root=" 2.16.840.1.251407.10.20.22.4.2" /> <id nullFlavor="NA& quot; /> <code codeSystem="local" code="PLT" displayName="PLATELET COUNT" /> <statusCode code=" completed" /> <effectiveTime value="119157765188" /> <value unit="k/cumm" xsi:type="PQ" value=& quot;73" /> <interpretationCode codeSystem="local&quot ; code="*" /> <referenceRange> < observationRange> <text>150-450</text> & lt;/observationRange> </referenceRange> </ observation> </component> </organizer> </entry> & lt;entry> <organizer moodCode="EVN" classCode="BATTERY& quot;> <templateId root="2.16.840.1.006745.10.20.22.4.1" /& gt; <id nullFlavor="NA" /> <code codeSystem=" local" code="CAION" displayName="CALCIUM IONIZED" /&gt ; <statusCode code="completed" /> <component> <observation moodCode="EVN" classCode="OBS"> <templateId root="2.16.840.1.643921.10.20.22.4.2" /> & lt;id nullFlavor="NA" /> <code codeSystem="local& quot; code="CAION" displayName="CALCIUM IONIZED" /> <statusCode code="completed" /> <effectiveTime value="322667077305" /> <value unit="mg/dL" xsi:type="PQ" value="4.7" /> <referenceRange& gt; <observationRange> <text>4.5-5.3</ text> </observationRange> </referenceRange> </observation> </component> </organizer> </ entry> <entry> <organizer moodCode="EVN" classCode=& quot;BATTERY"> <templateId root=" 2.16.840.1.174711.10.20.22.4.1" /> <id nullFlavor="NA&quot ; /> <code codeSystem="local" code="METAB" displayName="METABOLIC PANEL, BASIC" /> <statusCode code=" completed" /> <component> <observation moodCode=& quot;EVN" classCode="OBS"> <templateId root=" 2.16.840.1.415449.10.20.22.4.2" /> <id nullFlavor="NA& quot; /> <code codeSystem="local" code="K" displayName="POTASSIUM" /> <statusCode code=" completed" /> <effectiveTime value="524312074318" /> <value unit="mmol/L" xsi:type="PQ" value=& quot;4.7" /> <referenceRange> <observationRange&gt ; <text>3.5-5.3</text> </observationRange > </referenceRange> </observation> </ component> <component> <observation moodCode="EVN& quot; classCode="OBS"> <templateId root=" 2.16.840.1.995208.10.20.22.4.2" /> <id nullFlavor="NA& quot; /> <code codeSystem="local" code="eGFR&quot ; displayName="EST GFR (MDRD)" /> <statusCode code=& quot;completed" /> <effectiveTime value="530898742860& quot; /> <value unit="mL/min" xsi:type="PQ" value="> 60" /> <referenceRange> & lt;observationRange> <text>> 59</text> </observationRange> </referenceRange> </ observation> </component> <component> < observation moodCode="EVN" classCode="OBS"> < templateId root="2.16.840.1.608392.10.20.22.4.2" /> < id nullFlavor="NA" /> <code codeSystem="local&quot ; code="GAP" displayName="ANION GAP" /> < statusCode code="completed" /> <effectiveTime value=& quot;695775243720" /> <value unit="mmol/L" xsi: type="PQ" value="7" /> <referenceRange> <observationRange> <text>5-15</text> </observationRange> </referenceRange> </ observation> </component> <component> < observation moodCode="EVN" classCode="OBS"> < templateId root="2.16.840.1.528408.10.20.22.4.2" /> < id nullFlavor="NA" /> <code codeSystem="local&quot ; code="GLU" displayName="GLUCOSE" /> < statusCode code="completed" /> <effectiveTime value=& quot;798272759618" /> <value unit="mg/dL" xsi:type ="PQ" value="95" /> <referenceRange> <observationRange> <text>70-99</text> </observationRange> </referenceRange> </ observation> </component> <component> <observation moodCode="EVN" classCode="OBS"> <templateId root="2.16.840.1.660448.10.20.22.4.2" /> <id nullFlavor ="NA" /> <code codeSystem="local" code="CA& quot; displayName="CALCIUM" /> <statusCode code=" completed" /> <effectiveTime value="371060548956" /> <value unit="mg/dL" xsi:type="PQ" value=& quot;8.0" /> <interpretationCode codeSystem="local&quot ; code="*" /> <referenceRange> < observationRange> <text>8.5-10.1</text> & lt;/observationRange> </referenceRange> </ observation> </component> <component> < observation moodCode="EVN" classCode="OBS"> < templateId root="2.16.840.1.783870.10.20.22.4.2" /> < id nullFlavor="NA" /> <code codeSystem="local&quot ; code="BUN" displayName="BLOOD UREA NITROGEN" /> <statusCode code="completed" /> <effectiveTime value="949657075577" /> <value unit="mg/dL" xsi:type ="PQ" value="31" /> <interpretationCode codeSystem="local" code="*" /> < referenceRange> <observationRange> <text> 7-20</text> </observationRange> </ referenceRange> </observation> </component> < component> <observation moodCode="EVN" classCode=" OBS"> <templateId root="2.16.840.1.497380.10.20.22.4.2& quot; /> <id nullFlavor="NA" /> <code codeSystem="local" code="CREAT" displayName="CREATININE " /> <statusCode code="completed" /> < effectiveTime value="527680993314" /> <value unit=&quot ;mg/dL" xsi:type="PQ" value="0.8" /> < referenceRange> <observationRange> <text> 0.8-1.3</text> </observationRange> </ referenceRange> </observation> </component> < component> <observation moodCode="EVN" classCode=" OBS"> <templateId root="2.16.840.1.574796.10.20.22.4.2& quot; /> <id nullFlavor="NA" /> <code codeSystem="local" code="NA" displayName="SODIUM" /> <statusCode code="completed" /> < effectiveTime value="797304078954" /> <value unit=&quot ;mmol/L" xsi:type="PQ" value="139" /> < referenceRange> <observationRange> <text>135-148& lt;/text> </observationRange> </referenceRange& gt; </observation> </component> <component> <observation moodCode="EVN" classCode="OBS"> <templateId root="2.16.840.1.708429.10.20.22.4.2" /> <id nullFlavor="NA" /> <code codeSystem=&quot ;local" code="CL" displayName="CHLORIDE" /> <statusCode code="completed" /> <effectiveTime value="659309340082" /> <value unit="mmol/L" xsi:type="PQ" value="105" /> <referenceRange& gt; <observationRange> <text>98-110</text > </observationRange> </referenceRange> </observation> </component> <component> & lt;observation moodCode="EVN" classCode="OBS"> & lt;templateId root="2.16.840.1.231127.10.20.22.4.2" /> &lt ;id nullFlavor="NA" /> <code codeSystem="local& quot; code="CO2" displayName="CARBON DIOXIDE" /> <statusCode code="completed" /> <effectiveTime value="463650780997" /><value unit="mmol/L" xsi:type=& quot;PQ" value="27" /> <referenceRange> <observationRange> <text>21-32</text> & lt;/observationRange> </referenceRange> </ observation> </component> </organizer> </entry> & lt;entry> <organizer moodCode="EVN" classCode="BATTERY& quot;> <templateId root="2.16.840.1.360715.10.20.22.4.1" /& gt; <id nullFlavor="NA" /> <code codeSystem=" local" code="MAG" displayName="MAGNESIUM" /> & lt;statusCode code="completed" /> <component> &lt ;observation moodCode="EVN" classCode="OBS"> &lt ;templateId root="2.16.840.1.135839.10.20.22.4.2" /> <id nullFlavor="NA" /> <code codeSystem="local" code="MAG" displayName="MAGNESIUM" /> < statusCode code="completed" /> <effectiveTime value=& quot;063886319581" /> <value unit="mg/dL" xsi:type ="PQ" value="2.1" /> <referenceRange> & lt;observationRange> <text>1.8-2.4</text> </observationRange> </referenceRange> </ observation> </component> </organizer> </entry> & lt;entry> <organizer moodCode="EVN" classCode="BATTERY& quot;> <templateId root="2.16.840.1.713830.10.20.22.4.1" /& gt;<id nullFlavor="NA" /> <code codeSystem="local& quot; code="CBC" displayName="CBC" /> < statusCode code="completed" /> <component> < observation moodCode="EVN" classCode="OBS"> < templateId root="2.16.840.1.406810.10.20.22.4.2" /> < id nullFlavor="NA" /> <code codeSystem="local&quot ; code="MCH" displayName="MEAN CELL HGB" /> < statusCode code="completed" /> <effectiveTime value=& quot;048585662590" /> <value unit="pg" xsi:type=& quot;PQ" value="34.3" /> <interpretationCode codeSystem="local" code="*" /> < referenceRange> <observationRange><text>27.0-33.0</ text> </observationRange> </referenceRange> </observation> </component> <component> <observation moodCode="EVN" classCode="OBS"> <templateId root="2.16.840.1.111478.10..22.4.2" /> <id nullFlavor="NA" /> <code codeSystem=" local" code="MCHC" displayName="MEAN CELL HGB CONCENTRATION& quot;/> <statusCode code="completed" /> &lt ;effectiveTime value="580829145705" /> <value unit=& quot;g/dl" xsi:type="PQ" value="35.5" /> & lt;referenceRange> <observationRange> <text& gt;32.0-36.0</text> </observationRange> </ referenceRange> </observation> </component> < component> <observationmoodCode="EVN" classCode="OBS "> <templateId root="2.16.840.1.874112.10.20.22.4.2& quot; /> <id nullFlavor="NA" /> <code codeSystem="local" code="MCV" displayName="MEAN CELL VOLUME" /> <statusCode code="completed" /> &lt ;effectiveTime value="947495299987" /> <value unit=& quot;fl" xsi:type="PQ" value="96.8" /> < referenceRange> <observationRange> <text> 80.0-100.0</text> </observationRange> </ referenceRange> </observation> </component> < component> <observation moodCode="EVN" classCode=" OBS"> <templateId root="2.16.840.1.620397.10.20.22.4.2& quot; /> <id nullFlavor="NA" /> <code codeSystem="local" code="RBC" displayName="RED BLOOD CELL" /> <statusCode code="completed" /> <effectiveTime value="421042697136" /> <value unit=& quot;m/cumm" xsi:type="PQ" value="2.79" /> < interpretationCode codeSystem="local" code="*" /> <referenceRange> <observationRange> < text>4.00-6.00</text> </observationRange> </ referenceRange> </observation> </component> < component> <observation moodCode="EVN" classCode=" OBS"> <templateId root="2.16.840.1.030233.10.20.22.4.2& quot; /> <id nullFlavor="NA" /> <code codeSystem="local" code="RDW" displayName="RED CELL DISTRIBUTION WIDTH" /> <statusCode code="completed&quot ; /> <effectiveTime value="961379114823" /> <value unit="%" xsi:type="PQ" value="13.6& quot; /> <referenceRange> <observationRange> <text>11.0-15.6</text> </observationRange> </referenceRange> </observation> </ component> <component> <observation moodCode="EVN& quot; classCode="OBS"> <templateId root=" 2.16.840.1.218632.10.20.22.4.2" /> <id nullFlavor="NA" /& gt; <code codeSystem="local" code="WBC" displayName="WHITE BLOOD CELL" /> <statusCode code=& quot;completed" /> <effectiveTime value="340771994420& quot; /> <value unit="k/cumm" xsi:type="PQ" value="12.0" /> <interpretationCode codeSystem=" local" code="*" /> <referenceRange> <observationRange> <text>5.0-10.0</text> </observationRange> </referenceRange> </ observation> </component> <component> < observation moodCode="EVN" classCode="OBS"> < templateId root="2.16.840.1.860232.10.20.22.4.2" /> < id nullFlavor="NA" /> <code codeSystem="local&quot ; code="HGBT" displayName="HEMOGLOBIN" /> < statusCode code="completed" /> <effectiveTime value=& quot;002243344075" /> <value unit="gm/dL" xsi:type ="PQ" value="9.6" /> <interpretationCode codeSystem="local" code="*" /> < referenceRange> <observationRange> <text>14.0-18.0< /text> </observationRange> </referenceRange> </observation> </component> <component> <observation moodCode="EVN" classCode="OBS"> <templateId root="2.16.840.1.543364.10..22.4.2" /> <id nullFlavor="NA" /> <code codeSystem=" local" code="HCTT" displayName="HEMATOCRIT" /> <statusCode code="completed" /> <effectiveTime value="932505418518" /> <value unit="%& quot; xsi:type="PQ" value="27.0" /> < interpretationCode codeSystem="local" code="*" /> < referenceRange> <observationRange> <text> 40.0-54.0</text> </observationRange> </ referenceRange> </observation> </component> < component> <observation moodCode="EVN" classCode=" OBS"> <templateId root="2.16.840.1.671137.10.20.22.4.2& quot;/> <id nullFlavor="NA" /> <code codeSystem="local"code="PLT" displayName="PLATELET COUNT" /> <statusCode code="completed" /> <effectiveTime value="091024064806" /> <value unit="k/cumm" xsi:type="PQ" value="73" /> <interpretationCode codeSystem="local" code="*" /&gt ; <referenceRange> <observationRange> &lt ;text>150-450</text> </observationRange> < /referenceRange> </observation> </component></ organizer> </entry> <entry> <organizer moodCode="EVN " classCode="BATTERY"> <templateId root=" 2.16.840.1.891893.10.20.22.4.1" /> <id nullFlavor="NA" /& gt; <code codeSystem="local" code="GLUMON" displayName="GLUCOSE (POC)" /> <statusCode code=" completed" /> <component> <observation moodCode=& quot;EVN" classCode="OBS"> <templateId root=" 2.16.840.1.691644.10.20.22.4.2" /> <id nullFlavor="NA& quot; /> <code codeSystem="local" code="GLUMON& quot; displayName="GLUCOSE (POC)" /> <statusCode code=& quot;completed" /> <effectiveTime value="219018980555& quot; /> <value unit="mg/dL" xsi:type="PQ" value="133" /> <interpretationCode codeSystem=" local" code="*" /> <referenceRange> <observationRange> <text>70-99</text> </observationRange> </referenceRange> </ observation> </component> </organizer> </entry> & lt;entry> <organizer moodCode="EVN" classCode="BATTERY& quot;> <templateId root="2.16.840.1.236480.10.20.22.4.1" /& gt; <id nullFlavor="NA" /> <code codeSystem=" local" code="GLUMON" displayName="GLUCOSE (POC)" /> <statusCode code="completed" /> <component> <observation moodCode="EVN" classCode="OBS"> <templateId root="2.16.840.1.300996.10.20.22.4.2" /> <id nullFlavor="NA" /> <code codeSystem=" local" code="GLUMON" displayName="GLUCOSE(POC)" /> <statusCode code="completed" /> < effectiveTime value="183085616121" /> <value unit=&quot ;mg/dL" xsi:type="PQ" value="133" /> < interpretationCode codeSystem="local" code="*" /> <referenceRange> <observationRange> < text>70-99</text> </observationRange> </ referenceRange> </observation> </component> </ organizer> </entry> <entry> <organizer moodCode="EVN& quot; classCode="BATTERY"> <templateId root=" 2.16.840.1.089653.10.20.22.4.1" /> <id nullFlavor="NA&quot ; /> <code codeSystem="local" code="METAB" displayName="METABOLIC PANEL, BASIC" /> <statusCode code=& quot;completed" /> <component> <observation moodCode="EVN" classCode="OBS"> <templateId root="[id number]" /> <id nullFlavor ="NA" /> <code codeSystem="local" code=" K" displayName="POTASSIUM" /> <statusCode code=" completed" /> <effectiveTime value="[id number]" /> <value unit="mmol/L" xsi:type="PQ" value=& quot;4.0"/> <referenceRange> < observationRange> <text>3.5-5.3</text> & lt;/observationRange> </referenceRange> </ observation> </component> <component> < observation moodCode="EVN" classCode="OBS"> < templateId root="[id number]" /> < id nullFlavor="NA" /> <code codeSystem="local&quot ; code="eGFR" displayName="EST GFR (MDRD)" /> & lt;statusCode code="completed" /> <effectiveTime value= "332916391664" /> <value unit="mL/min" xsi:type=& quot;PQ" value="> 60" /> <referenceRange> <observationRange> <text>>59</ text> </observationRange> </referenceRange> </observation> </component> <component> <observation moodCode="EVN" classCode="OBS"> <templateId root="2.16.840.1.238470.10.20.22.4.2" /> <id nullFlavor="NA" /> <code codeSystem=" local" code="GAP" displayName="ANION GAP" /> <statusCode code="completed" /> <effectiveTime value="384835808289" /> <value unit="mmol/L" xsi:type="PQ" value="6" /> <referenceRange&gt ; <observationRange> <text>5-15</text&gt ; </observationRange> </referenceRange> </ observation> </component> <component> < observation moodCode="EVN" classCode="OBS"> < templateId root="2.16.840.1.749632.10.20.22.4.2" /> < id nullFlavor="NA" /> <code codeSystem="local&quot ; code="GLU" displayName="GLUCOSE" /> < statusCode code="completed" /> <effectiveTime value=" 487107468777" /> <value unit="mg/dL" xsi:type=& quot;PQ" value="120" /> <interpretationCode codeSystem="local" code="*" /> < referenceRange> <observationRange> <text> 70-99</text> </observationRange> </ referenceRange> </observation> </component> < component><observation moodCode="EVN" classCode="OBS"& gt; <templateId root="2.16.840.1.235748.10.20.22.4.2" /&gt ; <id nullFlavor="NA" /> <code codeSystem=" local" code="CA" displayName="CALCIUM" /> &lt ;statusCode code="completed" /> <effectiveTime value=& quot;625836405248" /> <value unit="mg/dL" xsi:type ="PQ" value="7.4" /> <interpretationCode codeSystem="local" code="*" /> <referenceRange&gt ; <observationRange> <text>8.5-10.1</text > </observationRange> </referenceRange> </observation> </component> <component> & lt;observation moodCode="EVN" classCode="OBS"> & lt;templateId root="2.16.840.1.743236.10.20.22.4.2" /> &lt ;id nullFlavor="NA" /> <code codeSystem="local& quot; code="BUN" displayName="BLOOD UREA NITROGEN" /> <statusCode code="completed" /> < effectiveTime value="539599371214" /> <value unit="mg/dL& quot; xsi:type="PQ" value="21" /> < interpretationCode codeSystem="local" code="*" /> <referenceRange> <observationRange> < text>7-20</text> </observationRange> </ referenceRange> </observation> </component> < component> <observation moodCode="EVN" classCode=" OBS"> <templateId root="2.16.840.1.850290.10.20.22.4.2& quot; /> <id nullFlavor="NA" /> <code codeSystem="local" code="CREAT" displayName="CREATININE " /> <statusCode code="completed" /> < effectiveTime value="055531957123" /> <value unit=&quot ;mg/dL" xsi:type="PQ" value="0.6" /> < interpretationCode codeSystem="local" code="*" /> <referenceRange> <observationRange> < text>0.8-1.3</text> </observationRange> </ referenceRange> </observation> </component> < component> <observation moodCode="EVN" classCode=" OBS"> <templateId root="2.16.840.1.803192.10.20.22.4.2& quot; /> <id nullFlavor="NA" /> <code codeSystem= "local" code="NA" displayName="SODIUM" /> & lt;statusCode code="completed" /> <effectiveTime value= "727895993297" /> <value unit="mmol/L" xsi: type="PQ" value="138" /> <referenceRange> <observationRange> <text>135-148</text& gt; </observationRange> </referenceRange> </observation> </component> <component> &lt ;observation moodCode="EVN" classCode="OBS"> &lt ;templateId root="2.16.840.1.931908.10.20.22.4.2" /> < id nullFlavor="NA" /> <code codeSystem="local&quot ; code="CL" displayName="CHLORIDE" /> < statusCode code="completed" /> <effectiveTime value=& quot;432600400937" /> <value unit="mmol/L" xsi:type=" PQ" value="105" /> <referenceRange> <observationRange> <text>98-110</text> & lt;/observationRange> </referenceRange> </ observation></component> <component> <observation moodCode="EVN" classCode="OBS"> <templateId root="2.16.840.1.387605.10..22.4.2" /> <id nullFlavor=& quot;NA" /> <code codeSystem="local" code=" CO2" displayName="CARBON DIOXIDE" /> <statusCode code="completed" /> <effectiveTime value=" 270757876897" /> <value unit="mmol/L" xsi:type=& quot;PQ" value="27" /> <referenceRange> <observationRange> <text>21-32</text> </observationRange> </referenceRange> </ observation> </component> </organizer> </entry> & lt;entry> <organizer moodCode="EVN" classCode="BATTERY& quot;> <templateId root="2.16.840.1.463205.10.20.22.4.1" /& gt; <id nullFlavor="NA" /> <code codeSystem=" local" code="CBC" displayName="CBC" /> < statusCode code="completed" /> <component> < observation moodCode="EVN" classCode="OBS"> < templateId root="2.16.840.1.764566.10.20.22.4.2" /> < id nullFlavor="NA" /> <code codeSystem="local&quot ; code="MCH" displayName="MEAN CELL HGB" /> < statusCode code="completed" /> <effectiveTime value=& quot;679064132809" /> <value unit="pg" xsi:type=& quot;PQ" value="34.2" /> <interpretationCode codeSystem="local" code="*" /> < referenceRange> <observationRange> <text>27.0- 33.0</text> </observationRange> </ referenceRange> </observation> </component> < component> <observation moodCode="EVN" classCode=" OBS"> <templateId root="2.16.840.1.997750.10.20.22.4.2& quot; /> <id nullFlavor="NA" /> <code codeSystem="local" code="MCHC" displayName="MEAN CELL HGB CONCENTRATION" /> <statusCode code="completed&quot ; /> <effectiveTime value="021470799007" /> <value unit="g/dl" xsi:type="PQ" value="34.5&quot ; /> <referenceRange> <observationRange> <text>32.0-36.0</text> </observationRange> </referenceRange> </observation> </component> <component> <observation moodCode="EVN" classCode= "OBS"> <templateId root=" 2.16.840.1.118973.10.20.22.4.2" /> <id nullFlavor="NA& quot; /> <code codeSystem="local" code="MCV" displayName="MEAN CELL VOLUME" /> <statusCode code=" completed" /> <effectiveTime value="614878385756" /> <value unit="fl" xsi:type="PQ" value=&quot ;99.0" /> <referenceRange> < observationRange> <text>80.0-100.0</text> </observationRange> </referenceRange> </observation& gt; </component> <component> <observation moodCode="EVN" classCode="OBS"> <templateId root="2.16.840.1.652883.10.20.22.4.2" /> <id nullFlavor ="NA" /> <code codeSystem="local" code=" RBC" displayName="RED BLOOD CELL" /> <statusCode code="completed" /> <effectiveTime value=" 933211131348" /> <value unit="m/cumm" xsi:type=& quot;PQ" value="2.64" /> <interpretationCode codeSystem="local" code="*" /> < referenceRange> <observationRange> <text> 4.00-6.00</text> </observationRange> </ referenceRange> </observation></component> < component> <observation moodCode="EVN" classCode=" OBS"> <templateId root="2.16.840.1.739983.10.20.22.4.2& quot; /> <id nullFlavor="NA" /> <code codeSystem="local" code="RDW" displayName="RED CELL DISTRIBUTION WIDTH" /> <statusCode code="completed&quot ; /> <effectiveTime value="726919098605" /> <value unit="%" xsi:type="PQ" value="13.4& quot; /> <referenceRange> <observationRange> <text>11.0-15.6</text> </ observationRange> </referenceRange> </observation&gt ; </component> <component> <observation moodCode=& quot;EVN" classCode="OBS"> <templateId root=" 2.16.840.1.599901.10.20.22.4.2" /> <id nullFlavor="NA& quot; /> <code codeSystem="local" code="WBC" displayName="WHITE BLOOD CELL" /> <statusCode code=& quot;completed" /> <effectiveTime value="496937245559& quot; /> <value unit="k/cumm" xsi:type="PQ" value="7.6" /> <referenceRange> < observationRange> <text>5.0-10.0</text> & lt;/observationRange> </referenceRange> </ observation> </component> <component> < observation moodCode="EVN" classCode="OBS"> < templateId root="2.16.840.1.892893.10.20.22.4.2" /> < id nullFlavor="NA" /> <code codeSystem="local&quot ; code="HGBT" displayName="HEMOGLOBIN" /> < statusCode code="completed" /> <effectiveTime value=&quot ;037931551109" /> <value unit="gm/dL" xsi:type=& quot;PQ" value="9.0" /> <interpretationCode codeSystem="local" code="*" /> < referenceRange> <observationRange> <text> 14.0-18.0</text> </observationRange> </referenceRange& gt; </observation> </component> <component> <observation moodCode="EVN" classCode="OBS"> <templateIdroot="2.16.840.1.370672.10.20.22.4.2" /> <id nullFlavor="NA" /> <code codeSystem=" local" code="HCTT" displayName="HEMATOCRIT" /> <statusCode code="completed" /> <effectiveTime value="229313731045" /> <value unit="%& quot; xsi:type="PQ" value="26.1" /> < interpretationCode codeSystem="local" code="*" /> <referenceRange> <observationRange> < text>40.0-54.0</text> </observationRange> &lt ;/referenceRange> </observation> </component> < component> <observation moodCode="EVN" classCode=" OBS"> <templateId root="2.16.840.1.747722.10.20.22.4.2& quot; /> <id nullFlavor="NA" /> <code codeSystem="local" code="PLT" displayName="PLATELET COUNT" /> <statusCode code="completed" /> <effectiveTime value="741516876650" /> <value unit="k/cumm" xsi:type="PQ" value="66" /> <interpretationCode codeSystem="local" code="*" /> <referenceRange> <observationRange> <text>150-450</text> </observationRange> < /referenceRange> </observation> </component> </ organizer> </entry> <entry> <organizer moodCode="EVN " classCode="BATTERY"> <templateId root=" 2.16.840.1.191619.10.20.22.4.1" /> <id nullFlavor="NA&quot ; /> <code codeSystem="local" code="METAB" displayName="METABOLIC PANEL, BASIC" /> <statusCode code=& quot;completed" /> <component> <observation moodCode="EVN" classCode="OBS"> <templateId root="2.16.840.1.513754.10.20.22.4.2" /> <id nullFlavor ="NA" /> <code codeSystem="local" code=" K" displayName="POTASSIUM" /> <statusCode code=& quot;completed" /> <effectiveTime value="561710214620& quot; /> <valueunit="mmol/L" xsi:type="PQ" value="4.0" /> <referenceRange> < observationRange> <text>3.5-5.3</text> & lt;/observationRange> </referenceRange> </ observation> </component> <component> < observation moodCode="EVN" classCode="OBS"> < templateId root="2.16.840.1.766956.10.20.22.4.2" /> < id nullFlavor="NA" /> <code codeSystem="local&quot ; code="eGFR" displayName="EST GFR (MDRD)" /> & lt;statusCode code="completed" /> <effectiveTime value= "858837526525" /> <value unit="mL/min" xsi: type="PQ" value="> 60" /> < referenceRange> <observationRange> <text>& amp;gt; 59</text> </observationRange> </ referenceRange> </observation> </component> < component> <observation moodCode="EVN" classCode=" OBS"> <templateId root="2.16.840.1.885453.10.20.22.4.2& quot; /> <id nullFlavor="NA" /> <code codeSystem="local" code="GAP" displayName="ANION GAP& quot; /> <statusCode code="completed" /> < effectiveTime value="250232676630" /> <value unit=&quot ;mmol/L"xsi:type="PQ" value="6" /> < referenceRange> <observationRange> <text> 5-15</text> </observationRange> </referenceRange& gt; </observation> </component> <component> <observation moodCode="EVN" classCode="OBS"> <templateId root="2.16.840.1.654071.10.20.22.4.2" /> <id nullFlavor="NA" /> <code codeSystem=&quot ;local" code="GLU" displayName="GLUCOSE" /> <statusCode code="completed" /> <effectiveTime value="847869322476" /> <value unit="mg/dL" xsi:type="PQ" value="120" /> < interpretationCode codeSystem="local" code="*" /> <referenceRange> <observationRange> < text>70-99</text> </observationRange> </ referenceRange> </observation> </component> < component> <observation moodCode="EVN" classCode=" OBS"> <templateId root="2.16.840.1.652479.10.20.22.4.2& quot; /> <id nullFlavor="NA" /> <code codeSystem="local" code="CA" displayName="CALCIUM&quot ; /> <statusCode code="completed" /> < effectiveTime value="009595282878" /> <value unit=&quot ;mg/dL" xsi:type="PQ" value="7.4" /> < interpretationCode codeSystem="local" code="*" /> <referenceRange> <observationRange> <text >8.5-10.1</text> </observationRange> </ referenceRange> </observation> </component> < component> <observation moodCode="EVN" classCode=" OBS"> <templateId root="2.16.840.1.375186.10.20.22.4.2& quot; /> <id nullFlavor="NA" /> <code codeSystem="local" code="BUN" displayName="BLOOD UREA NITROGEN" /> <statusCode code="completed" /> <effectiveTime value="540449359630" /> <value unit="mg/dL" xsi:type="PQ" value="21" /> <interpretationCode codeSystem="local" code="*" /&gt ; <referenceRange> <observationRange> <text>7-20</text> </observationRange> </referenceRange> </observation> </component> <component><observation moodCode="EVN" classCode="OBS& quot;> <templateId root="2.16.840.1.678210.10.20.22.4.2&quot ; /> <id nullFlavor="NA" /> <code codeSystem=& quot;local" code="CREAT" displayName="CREATININE" /&gt ; <statusCode code="completed" /> < effectiveTime value="675408056112" /> <value unit=&quot ;mg/dL" xsi:type="PQ" value="0.6" /> < interpretationCode codeSystem="local" code="*" /> <referenceRange> <observationRange> < text>0.8-1.3</text> </observationRange> </ referenceRange> </observation> </component> < component> <observation moodCode="EVN" classCode=" OBS"> <templateId root="2.16.840.1.142752.10.20.22.4.2& quot; /> <id nullFlavor="NA" /> <code codeSystem="local" code="NA" displayName="SODIUM" /> <statusCode code="completed" /> < effectiveTime value="770344995913" /> <value unit=&quot ;mmol/L" xsi:type="PQ" value="138" /> < referenceRange> <observationRange> <text> 135-148</text> </observationRange> </referenceRange&gt ; </observation> </component> <component> <observation moodCode="EVN" classCode="OBS"> <templateId root="2.16.840.1.932900.10.20.22.4.2" /> <id nullFlavor="NA" /> <code codeSystem=" local" code="CL" displayName="CHLORIDE" /> <statusCode code="completed" /> <effectiveTime value=& quot;060458689535" /> <value unit="mmol/L" xsi: type="PQ" value="105" /> <referenceRange> <observationRange> <text>98-110</text&gt ; </observationRange> </referenceRange> & lt;/observation> </component> <component> < observation moodCode="EVN" classCode="OBS"> < templateId root="2.16.840.1.330709.10.20.22.4.2" /> < id nullFlavor="NA" /> <code codeSystem="local&quot ; code="CO2" displayName="CARBON DIOXIDE" /> &lt ;statusCode code="completed" /> <effectiveTime value=& quot;363394192691" /> <value unit="mmol/L" xsi: type="PQ" value="27" /> <referenceRange> <observationRange> <text>21-32</text> </observationRange> </referenceRange> & lt;/observation> </component> </organizer> </entry&gt ; <entry> <organizer moodCode="EVN" classCode=" BATTERY"> <templateId root="2.16.840.1.652012.10.20.22.4.1&quot ; /> <id nullFlavor="NA" /> <code codeSystem=& quot;local" code="CBC" displayName="CBC" /> &lt ;statusCode code="completed" /> <component> < observation moodCode="EVN" classCode="OBS"> < templateId root="2.16.840.1.025385.10.20.22.4.2" /> < id nullFlavor="NA" /> <code codeSystem="local&quot ; code="MCH" displayName="MEAN CELL HGB" /> < statusCode code="completed" /> <effectiveTime value=& quot;669954723270" /> <value unit="pg" xsi:type=& quot;PQ" value="34.2" /> <interpretationCode codeSystem="local" code="*" /> <referenceRange> <observationRange> <text>27.0-33.0</text > </observationRange> </referenceRange> </observation> </component> <component> & lt;observation moodCode="EVN" classCode="OBS"> & lt;templateId root="2.16.840.1.367203.10..22.4.2" /> &lt ;id nullFlavor="NA" /> <code codeSystem="local& quot; code="MCHC" displayName="MEAN CELL HGB CONCENTRATION" /> <statusCode code="completed" /> < effectiveTime value="477361917529" /> <value unit=&quot ;g/dl" xsi:type="PQ" value="34.5" /> < referenceRange> <observationRange> <text> 32.0-36.0</text> </observationRange> </ referenceRange> </observation> </component> < component> <observation moodCode="EVN"classCode="OBS "> <templateId root="2.16.840.1.376528.10.20.22.4.2& quot; /> <id nullFlavor="NA" /> <code codeSystem="local" code="MCV" displayName="MEAN CELL VOLUME" /> <statusCode code="completed" /> <effectiveTime value="548770980978" /> <value unit="fl" xsi:type="PQ" value="99.0" /> <referenceRange> <observationRange> < text>80.0-100.0</text> </observationRange> </ referenceRange> </observation> </component> < component> <observation moodCode="EVN" classCode=" OBS"> <templateId root="2.16.840.1.385810.10.20.22.4.2& quot; /> <id nullFlavor="NA" /> <code codeSystem ="local" code="RBC" displayName="RED BLOOD CELL" / > <statusCode code="completed" /> < effectiveTime value="145431548001" /> <value unit=&quot ;m/cumm" xsi:type="PQ" value="2.64" /> < interpretationCode codeSystem="local" code="*" /> <referenceRange> <observationRange> < text>4.00-6.00</text> </observationRange> &lt ;/referenceRange> </observation> </component> & lt;component> <observation moodCode="EVN" classCode=&quot ;OBS"> <templateId root="2.16.840.1.373370.10..22.4.2 " /> <id nullFlavor="NA" /> <code codeSystem="local" code="RDW" displayName="RED CELL DISTRIBUTION WIDTH" /> <statusCode code="completed&quot ; /> <effectiveTime value="060721252087" /> < value unit="%" xsi:type="PQ" value="13.4" /> <referenceRange> <observationRange> <text>11.0-15.6</text> </observationRange> </referenceRange> </observation> </ component> <component> <observation moodCode="EVN& quot; classCode="OBS"><templateId root=" 2.16.840.1.356837.10..22.4.2" /> <id nullFlavor="NA& quot; /> <code codeSystem="local" code="WBC" displayName="WHITE BLOOD CELL" /> <statusCode code=& quot;completed" /> <effectiveTime value="279608786796& quot; /> <value unit="k/cumm" xsi:type="PQ" value="7.6" /> <referenceRange> < observationRange> <text>5.0-10.0</text> & lt;/observationRange> </referenceRange> </observation> </component> <component> <observation moodCode=& quot;EVN" classCode="OBS"> <templateId root=" 2.16.840.1.813500.10.20.22.4.2" /> <id nullFlavor="NA& quot; /> <code codeSystem="local" code="HGBT&quot ; displayName="HEMOGLOBIN" /> <statusCode code=" completed" /> <effectiveTime value="704247199662" /> <value unit="gm/dL" xsi:type="PQ" value=& quot;9.0" /> <interpretationCode codeSystem="local&quot ; code="*" /> <referenceRange> < observationRange> <text>14.0-18.0</text> </observationRange> </referenceRange> </observation> </component> <component> <observation moodCode= "EVN" classCode="OBS"> <templateId root=&quot ;2.16.840.1.710771.10.20.22.4.2" /> <id nullFlavor="NA& quot; /> <code codeSystem="local" code="HCTT&quot ; displayName="HEMATOCRIT" /> <statusCode code=" completed" /> <effectiveTime value="139555309100" /> <value unit="%" xsi:type="PQ" value= "26.1" /> <interpretationCode codeSystem="local" code="*" /> <referenceRange> < observationRange> <text>40.0-54.0</text> < /observationRange> </referenceRange> </observation& gt; </component> <component> <observation moodCode="EVN" classCode="OBS"> <templateId root="2.16.840.1.660618.10.20.22.4.2" /> <id nullFlavor=&quot ;NA" /> <code codeSystem="local" code="PLT& quot; displayName="PLATELET COUNT" /> <statusCode code= "completed" /> <effectiveTime value="420410959683& quot; /> <value unit="k/cumm" xsi:type="PQ" value="66" /> <interpretationCode codeSystem=" local" code="*" /> <referenceRange> <observationRange> <text>150-450</text> </observationRange> </referenceRange> </ observation> </component> </organizer> </entry> & lt;entry> <organizer moodCode="EVN" classCode="BATTERY& quot;> <templateId root="2.16.840.1.892467.10.20.22.4.1" /& gt; <id nullFlavor="NA" /> <code codeSystem=" local" code="GLUMON" displayName="GLUCOSE (POC)" /> <statusCode code="completed" /> <component> <observation moodCode="EVN" classCode="OBS"> &lt ;templateId root="2.16.840.1.500110.10.20.22.4.2" /> < id nullFlavor="NA" /> <code codeSystem="local&quot ; code="GLUMON" displayName="GLUCOSE (POC)" /> & lt;statusCode code="completed" /> <effectiveTime value= "926377754449" /> <value unit="mg/dL" xsi: type="PQ" value="125" /> <interpretationCode codeSystem="local" code="*" /> < referenceRange> <observationRange> <text>70- 99</text> </observationRange> </ referenceRange> </observation> </component> </ organizer> </entry><entry> <organizer moodCode="EVN& quot; classCode="BATTERY"> <templateId root=" 2.16.840.1.054772.10.20.22.4.1" /> <id nullFlavor="NA" /> <code codeSystem="local" code="GLUMON" displayName="GLUCOSE (POC)" /> <statusCode code=" completed" /> <component> <observation moodCode=& quot;EVN" classCode="OBS"> <templateId root=" 2.16.840.1.526358.10.20.22.4.2" /> <id nullFlavor="NA& quot; /> <code codeSystem="local" code="GLUMON" displayName="GLUCOSE (POC)" /> <statusCode code=" completed" /> <effectiveTime value="903042239347" /> <value unit="mg/dL" xsi:type="PQ" value=& quot;125" /> <interpretationCode codeSystem="local&quot ; code="*" /> <referenceRange> < observationRange> <text>70-99</text> < /observationRange> </referenceRange> </observation& gt; </component> </organizer> </entry> <entry&gt ; <organizer moodCode="EVN" classCode="BATTERY"> <templateId root="2.16.840.1.680668.10.20.22.4.1" /> & lt;id nullFlavor="NA" /> <code codeSystem="local&quot ; code="GLUMON" displayName="GLUCOSE (POC)" /> < statusCode code="completed" /> <component> < observation moodCode="EVN" classCode="OBS"> < templateId root="2.16.840.1.591065.10.20.22.4.2" /> < id nullFlavor="NA" /> <code codeSystem="local&quot ; code="GLUMON" displayName="GLUCOSE (POC)" /> & lt;statusCode code="completed" /> <effectiveTime value= "379979780251" /> <value unit="mg/dL" xsi: type="PQ" value="137" /> <interpretationCode codeSystem="local" code="*" /> < referenceRange> <observationRange> <text> 70-99</text> </observationRange> </referenceRange> </observation> </component> </organizer> </ entry> <entry> <organizer moodCode="EVN" classCode=& quot;BATTERY"> <templateId root=" 2.16.840.1.193228.10.20.22.4.1" /> <id nullFlavor="NA&quot ; /> <code codeSystem="local" code="GLUMON" displayName="GLUCOSE (POC)" /> <statusCode code=" completed" /> <component> <observation moodCode=& quot;EVN" classCode="OBS"> <templateId root=" 2.16.840.1.852701.10.20.22.4.2" /> <id nullFlavor="NA" /> <code codeSystem="local" code="GLUMON" displayName="GLUCOSE (POC)" /> <statusCode code=" completed" /> <effectiveTime value="200715652394" /> <value unit="mg/dL" xsi:type="PQ" value=& quot;137" /> <interpretationCode codeSystem="local&quot ; code="*" /> <referenceRange> < observationRange> <text>70-99</text> < /observationRange> </referenceRange> </observation& gt; </component> </organizer> </entry> <entry&gt ; <organizer moodCode="EVN" classCode="BATTERY"> <templateId root="2.16.840.1.439486.10.20.22.4.1" /> & lt;idnullFlavor="NA" /> <code codeSystem="local" code="GLUMON" displayName="GLUCOSE (POC)" /> < statusCode code="completed" /> <component> < observation moodCode="EVN" classCode="OBS"> < templateId root="2.16.840.1.289028.10.20.22.4.2" /> < id nullFlavor="NA" /> <code codeSystem="local&quot ; code="GLUMON" displayName="GLUCOSE (POC)" /> & lt;statusCode code="completed" /> <effectiveTime value= "002802123734" /> <value unit="mg/dL" xsi: type="PQ" value="151" /> <interpretationCode codeSystem="local" code="*" /> < referenceRange> <observationRange> <text>70- 99</text> </observationRange> </ referenceRange> </observation> </component> </ organizer> </entry> <entry> <organizer moodCode="EVN& quot; classCode="BATTERY"> <templateId root=" 2.16.840.1.873338.10.20.22.4.1" /> <id nullFlavor="NA&quot ; /> <code codeSystem="local" code="GLUMON" displayName="GLUCOSE (POC)" /> <statusCode code=" completed" /> <component> <observation moodCode=& quot;EVN" classCode="OBS"> <templateId root=" 2.16.840.1.810387.10.20.22.4.2" /> <id nullFlavor="NA& quot; /> <code codeSystem="local" code="GLUMON" displayName="GLUCOSE (POC)" /> <statusCode code=" completed" /> <effectiveTime value="217243592724" /> <value unit="mg/dL" xsi:type="PQ" value=& quot;151" /> <interpretationCode codeSystem="local&quot ; code="*"/> <referenceRange> < observationRange> <text>70-99</text> < /observationRange> </referenceRange> </observation& gt; </component> </organizer> </entry> <entry&gt ; <organizer moodCode="EVN" classCode="BATTERY"> <templateId root="[id number]" /> & lt;id nullFlavor="NA" /> <code codeSystem="local&quot ; code="GLUMON" displayName="GLUCOSE (POC)" /> < statusCode code="completed" /> <component> < observation moodCode="EVN" classCode="OBS"> < templateId root="[id number]" /> < id nullFlavor="NA" /> <code codeSystem="local&quot ; code="GLUMON" displayName="GLUCOSE (POC)" /> & lt;statusCode code="completed" /> <effectiveTime value= "[id number]" /> <value unit="mg/dL" xsi: type="PQ" value="140" /> <interpretationCode codeSystem="local" code="*" /> < referenceRange> <observationRange> <text> 70-99</text> </observationRange> </referenceRange> </observation> </component> </organizer> < /entry> <entry> <organizer moodCode="EVN" classCode=& quot;BATTERY"> <templateId root=" 2.16.840.1.583080.10.20.22.4.1" /> <id nullFlavor="NA&quot ; /> <code codeSystem="local"code="GLUMON" displayName="GLUCOSE (POC)" /> <statusCode code=" completed" /> <component> <observation moodCode=& quot;EVN" classCode="OBS"> <templateId root=" 2.16.840.1.651758.10.20.22.4.2" /> <id nullFlavor="NA&quot ; /> <code codeSystem="local" code="GLUMON" displayName="GLUCOSE (POC)" /> <statusCode code=" completed" /> <effectiveTime value="459027834484" /> <value unit="mg/dL" xsi:type="PQ" value=& quot;140" /> <interpretationCode codeSystem="local&quot ; code="*" /> <referenceRange> < observationRange> <text>70-99</text> < /observationRange> </referenceRange> </observation& gt; </component> </organizer> </entry> <entry&gt ; <organizer moodCode="EVN" classCode="BATTERY"> <templateId root="2.16.840.1.591815.10.20.22.4.1" /> & lt;id nullFlavor="NA" /> <code codeSystem="local&quot ; code="METAB" displayName="METABOLIC PANEL, BASIC" /> <statusCode code="completed" /> <component> <observation moodCode="EVN" classCode="OBS"> <templateId root="2.16.840.1.741213.10.20.22.4.2" /> <id nullFlavor="NA" /> <code codeSystem=" local" code="K" displayName="POTASSIUM" /> <statusCode code="completed" /> <effectiveTime value ="942554738993" /> <value unit="mmol/L" xsi: type="PQ" value="3.4" /> <interpretationCode codeSystem="local" code="*" /> < referenceRange> <observationRange> <text> 3.5-5.3</text> </observationRange> </ referenceRange> </observation> </component> < component> <observation moodCode="EVN" classCode=" OBS"> <templateId root="2.16.840.1.564498.10.20.22.4.2& quot; /> <id nullFlavor="NA" /> <code codeSystem="local" code="eGFR" displayName="EST GFR ( MDRD)" /> <statusCode code="completed" /> <effectiveTime value="198351302708" /> <value unit="mL/min" xsi:type="PQ" value="> 60" /& gt; <referenceRange> <observationRange> < text>> 59</text> </observationRange> & lt;/referenceRange> </observation> </component> <component> <observation moodCode="EVN" classCode=& quot;OBS"> <templateId root=" 2.16.840.1.510045.10.20.22.4.2" /> <id nullFlavor="NA& quot; /> <code codeSystem="local" code="GAP" displayName="ANION GAP" /> <statusCode code="completed& quot; /> <effectiveTime value="432714656962" /> <value unit="mmol/L" xsi:type="PQ" value="7& quot;/> <referenceRange> <observationRange> <text>5-15</text> </observationRange> </referenceRange> </observation> </ component> <component> <observation moodCode="EVN& quot; classCode="OBS"> <templateId root=" 2.16.840.1.910975.10.20.22.4.2" /> <id nullFlavor="NA& quot; /> <code codeSystem="local" code="GLU" displayName="GLUCOSE" /> <statusCode code=" completed" /> <effectiveTime value="791373976264" /> <value unit="mg/dL" xsi:type="PQ" value=& quot;132" /> <interpretationCode codeSystem="local&quot ; code="*" /> <referenceRange> < observationRange> <text>70-99</text> < /observationRange> </referenceRange> </observation& gt; </component> <component> <observation moodCode=& quot;EVN" classCode="OBS"> <templateId root=" 2.16.840.1.731774.10.20.22.4.2" /> <id nullFlavor="NA& quot; /> <code codeSystem="local" code="CA" displayName="CALCIUM" /> <statusCode code=" completed" /> <effectiveTime value="374042260956" /> <value unit="mg/dL" xsi:type="PQ" value=& quot;7.8" /> <interpretationCode codeSystem="local&quot ; code="*" /> <referenceRange> < observationRange> <text>8.5-10.1</text> </ observationRange> </referenceRange> </observation&gt ; </component> <component> <observation moodCode ="EVN" classCode="OBS"> <templateId root=& quot;2.16.840.1.589371.10.20.22.4.2" /> <id nullFlavor=&quot ;NA" /> <codecodeSystem="local" code="BUN& quot; displayName="BLOOD UREA NITROGEN" /> <statusCode code="completed" /> <effectiveTime value=" 718839619565" /> <value unit="mg/dL" xsi:type=& quot;PQ" value="18" /> <referenceRange> <observationRange> <text>7-20</text> </observationRange> </referenceRange> </ observation> </component> <component> < observation moodCode="EVN" classCode="OBS"> < templateId root="2.16.840.1.503829.10.20.22.4.2" /> < id nullFlavor="NA" /> <code codeSystem="local&quot ; code="CREAT" displayName="CREATININE" /> < statusCodecode="completed" /> <effectiveTime value=& quot;015828887045" /> <value unit="mg/dL" xsi:type=& quot;PQ" value="0.8" /> <referenceRange> <observationRange> <text>0.8-1.3</text> </observationRange> </referenceRange> </ observation> </component> <component> < observation moodCode="EVN" classCode="OBS"> < templateId root="2.16.840.1.514038.10.20.22.4.2" /> <id nullFlavor="NA" /> <code codeSystem="local" code="NA" displayName="SODIUM" /> < statusCode code="completed" /> <effectiveTime value=& quot;539199201091" /> <value unit="mmol/L" xsi: type="PQ" value="140" /> <referenceRange> <observationRange> <text>135-148</text> </observationRange> </referenceRange> < /observation> </component> <component> < observation moodCode="EVN" classCode="OBS"> < templateId root="2.16.840.1.029001.10.20.22.4.2" /> < id nullFlavor="NA" /> <code codeSystem="local&quot ; code="CL" displayName="CHLORIDE" /> < statusCode code="completed" /> <effectiveTime value=& quot;024654557794" /> <value unit="mmol/L" xsi: type="PQ" value="105" /> <referenceRange> <observationRange> <text>98-110</text&gt ; </observationRange> </referenceRange> & lt;/observation> </component> <component> < observation moodCode="EVN" classCode="OBS"> < templateId root="2.16.840.1.547463.10.20.22.4.2" /> < id nullFlavor="NA" /> <code codeSystem="local" code="CO2" displayName="CARBON DIOXIDE" /> < statusCode code="completed" /> <effectiveTime value=& quot;244836818510" /> <value unit="mmol/L" xsi: type="PQ" value="28" /> <referenceRange> <observationRange> <text>21-32</text> </observationRange> </referenceRange> </ observation> </component> </organizer> </entry> & lt;entry> <organizer moodCode="EVN" classCode="BATTERY& quot;> <templateId root="2.16.840.1.847966.10.20.22.4.1" /& gt; <id nullFlavor="NA" /> <code codeSystem=" local" code="CBC" displayName="CBC" /> < statusCode code="completed" /> <component> < observation moodCode="EVN" classCode="OBS"> < templateId root="2..840.1.841962.10.20.22.4.2" /> < id nullFlavor="NA" /> <code codeSystem="local&quot ; code="MCH" displayName="MEAN CELL HGB" /> < statusCode code="completed" /> <effectiveTime value=& quot;447571921872" /> <value unit="pg" xsi:type=& quot;PQ" value="34.5" /> <interpretationCode codeSystem ="local" code="*" /> <referenceRange> <observationRange> <text>27.0-33.0</text&gt ; </observationRange> </referenceRange> </ observation> </component> <component> < observation moodCode="EVN" classCode="OBS"> < templateId root="2.16.840.1.907915.10.20.22.4.2" /> <id nullFlavor="NA" /> <code codeSystem="local" code="MCHC" displayName="MEAN CELL HGB CONCENTRATION" /> <statusCode code="completed" /> < effectiveTime value="212968730167" /> <value unit=&quot ;g/dl" xsi:type="PQ" value="34.8" /> < referenceRange> <observationRange> <text> 32.0-36.0</text> </observationRange> </ referenceRange> </observation> </component> < component> <observation moodCode="EVN" classCode=" OBS"> <templateId root="2.16.840.1.228750.10.20.22.4.2& quot; /> <id nullFlavor="NA" /> <code codeSystem ="local" code="MCV" displayName="MEAN CELL VOLUME&quot ; /> <statusCode code="completed" /> < effectiveTime value="842379060888" /> <value unit=&quot ;fl" xsi:type="PQ" value="99.2" /> < referenceRange> <observationRange> <text>80.0 -100.0</text> </observationRange> </ referenceRange> </observation> </component> < component> <observation moodCode="EVN" classCode=" OBS"> <templateId root="2.16.840.1.445650.10.20.22.4.2& quot; /> <id nullFlavor="NA" /> <code codeSystem="local" code="RBC" displayName="RED BLOOD CELL" /> <statusCode code="completed" /> &lt ;effectiveTime value="214898422424" /> <value unit=& quot;m/cumm" xsi:type="PQ" value="2.64" /> <interpretationCode codeSystem="local" code="*" /> <referenceRange> <observationRange> & lt;text>4.00-6.00</text> </observationRange> </referenceRange> </observation> </component> <component> <observation moodCode="EVN" classCode=" OBS"> <templateId root="2.16.840.1.948395.10.20.22.4.2& quot; /> <id nullFlavor="NA" /> <code codeSystem="local" code="RDW" displayName="RED CELL DISTRIBUTION WIDTH" /> <statusCode code="completed&quot ; /> <effectiveTime value="513147928982" /> <value unit="%" xsi:type="PQ" value="13.2& quot; /> <referenceRange> <observationRange> <text>11.0-15.6</text> </ observationRange> </referenceRange> </observation> & lt;/component> <component> <observation moodCode=" EVN" classCode="OBS"> <templateId root=" 2.16.840.1.343428.10.20.22.4.2" /> <id nullFlavor="NA& quot; /> <code codeSystem="local" code="WBC" displayName="WHITE BLOOD CELL" /> <statusCode code=& quot;completed" /> <effectiveTime value="645966262738& quot; /> <value unit="k/cumm" xsi:type="PQ" value="7.9" /> <referenceRange> < observationRange> <text>5.0-10.0</text> </ observationRange> </referenceRange> </observation&gt ; </component> <component> <observation moodCode ="EVN" classCode="OBS"> <templateId root=& quot;2.16.840.1.308269.10.20.22.4.2" /> <id nullFlavor=&quot ;NA" /> <code codeSystem="local" code="HGBT& quot; displayName="HEMOGLOBIN" /> <statusCode code=" completed" /> <effectiveTime value="086836052397" /> <value unit="gm/dL" xsi:type="PQ" value=& quot;9.1" /> <interpretationCode codeSystem="local&quot ; code="*" /> <referenceRange> < observationRange> <text>14.0-18.0</text> </observationRange> </referenceRange> </ observation> </component> <component> < observation moodCode="EVN" classCode="OBS"> < templateId root="2.16.840.1.015732.10.20.22.4.2" /> < id nullFlavor="NA" /> <code codeSystem="local&quot ; code="HCTT" displayName="HEMATOCRIT" /> < statusCode code="completed" /> <effectiveTime value=& quot;795363721891" /> <value unit="%" xsi: type="PQ" value="26.2" /> < interpretationCode codeSystem="local" code="*" /> <referenceRange> <observationRange> < text>40.0-54.0</text> </observationRange> &lt ;/referenceRange> </observation> </component> & lt;component> <observation moodCode="EVN" classCode=&quot ;OBS"> <templateId root="2.16.840.1.890262.10.20.22.4.2 " /> <id nullFlavor="NA" /> <code codeSystem="local" code="PLT" displayName="PLATELET COUNT" /> <statusCode code="completed" /> <effectiveTime value="962182648122" /> <value unit=& quot;k/cumm" xsi:type="PQ" value="62" /> & lt;interpretationCode codeSystem="local" code="*" /> <referenceRange> <observationRange> & lt;text>150-450</text> </observationRange> & lt;/referenceRange> </observation> </component> & lt;/organizer> </entry> <entry> <organizer moodCode=&quot ;EVN" classCode="BATTERY"> <templateId root=" 2.16.840.1.720133.10.20.22.4.1" /> <id nullFlavor="NA&quot ; /> <code codeSystem="local" code="METAB" displayName="METABOLIC PANEL, BASIC" /> <statusCode code=& quot;completed" /> <component> <observation moodCode="EVN" classCode="OBS"> <templateId root="2.16.840.1.938614.10.20.22.4.2" /> <id nullFlavor ="NA" /> <code codeSystem="local" code=" K" displayName="POTASSIUM" /> <statusCode code=& quot;completed" /> <effectiveTimevalue="416268959115& quot; /> <value unit="mmol/L" xsi:type="PQ" value="3.4" /> <interpretationCode codeSystem=" local" code="*" /> <referenceRange> <observationRange> <text>3.5-5.3</text> </observationRange> </referenceRange> </ observation> </component> <component> < observation moodCode="EVN" classCode="OBS"> < templateId root="2.16.840.1.314982.10.20.22.4.2" /> < id nullFlavor="NA" /> <code codeSystem="local&quot ; code="eGFR" displayName="EST GFR (MDRD)" /> & lt;statusCode code="completed" /> <effectiveTime value= "503927927765" /> <value unit="mL/min" xsi: type="PQ" value="> 60" /> < referenceRange> <observationRange> <text> > 59</text> </observationRange> </ referenceRange> </observation> </component> < component> <observation moodCode="EVN" classCode=" OBS"> <templateId root="2.16.840.1.620891.10.20.22.4.2& quot; /> <id nullFlavor="NA" /> <code codeSystem="local" code="GAP" displayName="ANION GAP& quot; /> <statusCode code="completed" /> & lt;effectiveTime value="032107538372" /> <value unit=&quot ;mmol/L" xsi:type="PQ" value="7" /> < referenceRange> <observationRange> <text> 5-15</text> </observationRange> </ referenceRange> </observation> </component> < component> <observation moodCode="EVN" classCode=" OBS"> <templateId root="2.16.840.1.619776.10.20.22.4.2& quot; /> <id nullFlavor="NA" /> <code codeSystem="local" code="GLU" displayName="GLUCOSE&quot ; /> <statusCode code="completed" /> < effectiveTime value="869342268221" /> <value unit=&quot ;mg/dL" xsi:type="PQ" value="132" /> < interpretationCode codeSystem="local" code="*" /> <referenceRange> <observationRange> < text>70-99</text> </observationRange> </ referenceRange> </observation> </component> < component> <observation moodCode="EVN" classCode=" OBS"> <templateId root="2.16.840.1.221512.10.20.22.4.2& quot; /> <id nullFlavor="NA" /> <code codeSystem="local" code="CA" displayName="CALCIUM&quot ; /> <statusCode code="completed" /> < effectiveTime value="630615840470" /> <value unit=&quot ;mg/dL" xsi:type="PQ" value="7.8" /> < interpretationCode codeSystem="local" code="*" /> <referenceRange> <observationRange> < text>8.5-10.1</text> </observationRange> < /referenceRange> </observation> </component> &lt ;component> <observation moodCode="EVN" classCode=" OBS"> <templateId root="2.16.840.1.180401.10.20.22.4.2& quot; /> <id nullFlavor="NA" /> <code codeSystem="local" code="BUN" displayName="BLOOD UREA NITROGEN" /> <statusCode code="completed" /> <effectiveTime value="745888307244" /> < value unit="mg/dL" xsi:type="PQ" value="18" /> <referenceRange> <observationRange> < text>7-20</text> </observationRange> </ referenceRange> </observation> </component> < component> <observation moodCode="EVN" classCode=" OBS"> <templateId root="2.16.840.1.631691.10.20.22.4.2& quot; /> <id nullFlavor="NA" /> <code codeSystem="local" code="CREAT" displayName="CREATININE " /> <statusCode code="completed" /> & lt;effectiveTime value="429276982753" /> <value unit=& quot;mg/dL" xsi:type="PQ" value="0.8" /> & lt;referenceRange> <observationRange> <text& gt;0.8-1.3</text> </observationRange> </ referenceRange> </observation> </component> < component> <observation moodCode="EVN" classCode=" OBS"> <templateId root="2.16.840.1.650859.10.20.22.4.2& quot; /> <idnullFlavor="NA" /> <code codeSystem="local" code="NA" displayName="SODIUM" /> <statusCode code="completed" /><effectiveTime value="405701055292" /> <value unit="mmol/L" xsi:type="PQ" value="140" /> <referenceRange& gt; <observationRange> <text>135-148</ text> </observationRange> </referenceRange> </observation> </component> <component> & lt;observation moodCode="EVN" classCode="OBS"> & lt;templateId root="2.16.840.1.157069.10.20.22.4.2" /> &lt ;id nullFlavor="NA" /> <code codeSystem="local& quot; code="CL" displayName="CHLORIDE" /> < statusCode code="completed" /> <effectiveTime value=& quot;736884829774" /> <value unit="mmol/L" xsi: type="PQ" value="105" /> <referenceRange> <observationRange> <text>98-110</text> </observationRange> </referenceRange> </ observation> </component> <component> < observation moodCode="EVN" classCode="OBS"> < templateId root="2.16.840.1.123321.10.20.22.4.2" /> < id nullFlavor="NA" /> <code codeSystem="local&quot ; code="CO2" displayName="CARBON DIOXIDE" /> < statusCode code="completed" /> <effectiveTime value=& quot;162915250433" /> <value unit="mmol/L" xsi: type="PQ" value="28" /> <referenceRange> <observationRange> <text>21-32</text> </observationRange> </referenceRange> & lt;/observation> </component> </organizer> </entry&gt ; <entry> <organizer moodCode="EVN" classCode=" BATTERY"> <templateId root="2.16.840.1.027372.10.20.22.4.1& quot; /> <id nullFlavor="NA" /> <code codeSystem ="local" code="CBC" displayName="CBC" /> & lt;statusCode code="completed" /> <component> &lt ;observation moodCode="EVN" classCode="OBS"> &lt ;templateId root="2.16.840.1.964246.10.20.22.4.2" /> < id nullFlavor="NA" /> <code codeSystem="local&quot ; code="MCH" displayName="MEAN CELL HGB" /> < statusCode code="completed" /> <effectiveTime value=& quot;154771392408" /> <value unit="pg" xsi:type=& quot;PQ" value="34.5" /> <interpretationCode codeSystem="local" code="*" /> < referenceRange> <observationRange> <text>27.0 -33.0</text> </observationRange> </ referenceRange> </observation> </component> < component> <observation moodCode="EVN" classCode=" OBS"> <templateId root="2.16.840.1.539562.10.20.22.4.2& quot; /> <id nullFlavor="NA" /> <code codeSystem="local" code="MCHC" displayName="MEAN CELL HGB CONCENTRATION" /> <statusCode code="completed&quot ; /> <effectiveTime value="021380590233" /> <value unit="g/dl" xsi:type="PQ" value="34.8&quot ; /> <referenceRange> <observationRange> <text>32.0-36.0</text> </observationRange> </referenceRange> </observation> </component& gt; <component> <observation moodCode="EVN" classCode="OBS"> <templateId root=" 2.16.840.1.239012.10.20.22.4.2" /> <id nullFlavor="NA& quot; /> <code codeSystem="local" code="MCV" displayName="MEAN CELL VOLUME" /> <statusCode code=& quot;completed" /> <effectiveTime value="481705562380" / > <value unit="fl" xsi:type="PQ" value=" 99.2" /> <referenceRange> <observationRange > <text>80.0-100.0</text> </ observationRange> </referenceRange> </observation&gt ; </component> <component> <observation moodCode ="EVN" classCode="OBS"> <templateId root=& quot;2.16.840.1.166358.10.20.22.4.2" /> <id nullFlavor=&quot ;NA" /> <code codeSystem="local" code="RBC& quot; displayName="REDBLOOD CELL" /> <statusCode code=& quot;completed" /> <effectiveTime value="758436369268& quot; /> <value unit="m/cumm" xsi:type="PQ" value="2.64" /> <interpretationCode codeSystem=" local" code="*" /> <referenceRange> <observationRange> <text>4.00-6.00</text> </ observationRange> </referenceRange> </observation&gt ; </component> <component> <observation moodCode ="EVN" classCode="OBS"> <templateId root=& quot;2.16.840.1.123294.10..22.4.2" /> <id nullFlavor=&quot ;NA" /> <code codeSystem="local" code="RDW& quot; displayName="RED CELL DISTRIBUTION WIDTH" /> < statusCode code="completed" /> <effectiveTime value=& quot;195526987433" /> <value unit="%" xsi: type="PQ" value="13.2" /> <referenceRange&gt ; <observationRange> <text>11.0-15.6</text> </observationRange> </referenceRange> < /observation> </component> <component> < observation moodCode="EVN" classCode="OBS"> < templateId root="2.16.840.1.954746.10.20.22.4.2" /> < id nullFlavor="NA" /> <code codeSystem="local&quot ; code="WBC" displayName="WHITE BLOOD CELL" /> & lt;statusCode code="completed" /> <effectiveTime value= "777691167463" /> <value unit="k/cumm" xsi: type="PQ" value="7.9" /> <referenceRange> <observationRange> <text>5.0-10.0</text& gt; </observationRange> </referenceRange> &lt ;/observation> </component> <component> < observation moodCode="EVN" classCode="OBS"> < templateId root="2.16.840.1.579295.10.20.22.4.2" /> < id nullFlavor="NA" /> <code codeSystem="local&quot ; code="HGBT" displayName="HEMOGLOBIN" /> < statusCode code="completed" /> <effectiveTime value=& quot;794559317646" /> <value unit="gm/dL" xsi:type ="PQ" value="9.1" /> <interpretationCode codeSystem ="local" code="*" /> <referenceRange> <observationRange> <text>14.0-18.0</text&gt ; </observationRange> </referenceRange> </ observation> </component> <component> < observation moodCode="EVN" classCode="OBS"> < templateId root="2.16.840.1.445649.10.20.22.4.2" /> <id nullFlavor="NA" /> <code codeSystem="local" code="HCTT" displayName="HEMATOCRIT" /> < statusCode code="completed"/> <effectiveTime value=& quot;663425449152" /> <value unit="%" xsi: type="PQ" value="26.2" /> < interpretationCode codeSystem="local" code="*" /> <referenceRange> <observationRange> < text>40.0-54.0</text> </observationRange> &lt ;/referenceRange> </observation> </component> & lt;component> <observation moodCode="EVN" classCode=&quot ;OBS"> <templateId root="2.16.840.1.597719.10.20.22.4.2 " /> <id nullFlavor="NA" /> <code codeSystem="local" code="PLT" displayName="PLATELET COUNT" /> <statusCode code="completed" /> <effectiveTime value="561430596805" /> <value unit="k/cumm" xsi:type="PQ" value="62" /> <interpretationCode codeSystem="local" code="*" /&gt ; <referenceRange> <observationRange> <text >150-450</text> </observationRange> </ referenceRange> </observation> </component> </ organizer> </entry> <entry> <organizer moodCode="EVN " classCode="BATTERY"> <templateId root=" 2.16.840.1.445951.10.20.22.4.1" /> <id nullFlavor="NA&quot ; /> <code codeSystem="local" code="GLUMON" displayName="GLUCOSE (POC)" /> <statusCode code=" completed" /> <component> <observation moodCode=& quot;EVN" classCode="OBS"> <templateId root=" 2.16.840.1.578392.10.20.22.4.2" /> <id nullFlavor="NA& quot; /> <code codeSystem="local" code="GLUMON& quot; displayName="GLUCOSE (POC)" /> <statusCode code=& quot;completed" /> <effectiveTime value="998924797526& quot; /> <value unit="mg/dL" xsi:type="PQ" value="108" /> <interpretationCode codeSystem=" local" code="*" /> <referenceRange> & lt;observationRange> <text>70-99</text> & lt;/observationRange> </referenceRange> </ observation> </component> </organizer> </entry> & lt;entry> <organizer moodCode="EVN" classCode="BATTERY& quot;> <templateId root="2.16.840.1.090045.10.20.22.4.1" /& gt; <id nullFlavor="NA" /> <code codeSystem=" local" code="GLUMON" displayName="GLUCOSE (POC)" /> <statusCode code="completed" /> <component> <observation moodCode="EVN" classCode="OBS"> <templateId root="2.16.840.1.149623.10.20.22.4.2" /> <id nullFlavor="NA" /> <code codeSystem=" local" code="GLUMON" displayName="GLUCOSE (POC)" /> <statusCode code="completed" /> < effectiveTime value="708007701435" /> <value unit="mg/ dL" xsi:type="PQ" value="108" /> < interpretationCode codeSystem="local" code="*" /> <referenceRange> <observationRange> < text>70-99</text> </observationRange> </ referenceRange> </observation> </component> </ organizer> </entry> <entry> <organizer moodCode="EVN " classCode="BATTERY"> <templateId root=" 2.16.840.1.506664.10.20.22.4.1" /> <id nullFlavor="NA&quot ; /> <code codeSystem="local" code="GLUMON" displayName="GLUCOSE (POC)" /> <statusCode code=" completed" /> <component> <observation moodCode=& quot;EVN" classCode="OBS"> <templateId root=" 2.16.840.1.482225.10.20.22.4.2" /><id nullFlavor="NA" /&gt ; <code codeSystem="local" code="GLUMON" displayName="GLUCOSE (POC)" /> <statusCode code=" completed" /> <effectiveTime value="376534559505" /> <value unit="mg/dL" xsi:type="PQ" value=& quot;147" /> <interpretationCode codeSystem="local&quot ; code="*" /> <referenceRange> < observationRange> <text>70-99</text> < /observationRange> </referenceRange> </observation> </component> </organizer> </entry> <entry> <organizer moodCode="EVN" classCode="BATTERY"> <templateId root="2.16.840.1.751053.10.20.22.4.1" /> < id nullFlavor="NA" /> <code codeSystem="local" code="GLUMON" displayName="GLUCOSE (POC)" /> < statusCode code="completed" /> <component> < observation moodCode="EVN" classCode="OBS"> < templateId root="2.16.840.1.557037.10.20.22.4.2" /> < id nullFlavor="NA" /> <code codeSystem="local&quot ; code="GLUMON" displayName="GLUCOSE (POC)" /> & lt;statusCode code="completed" /> <effectiveTime value= "[id number]" /> <value unit="mg/dL" xsi: type="PQ" value="147" /> <interpretationCode codeSystem="local" code="*" /> < referenceRange> <observationRange> <text>70-99&lt ;/text> </observationRange> </referenceRange&gt ; </observation> </component> </organizer> &lt ;/entry> <entry> <organizer moodCode="EVN" classCode=& quot;BATTERY"> <templateId root=" [id number]" /> <id nullFlavor="NA&quot ; /> <code codeSystem="local" code="GLUMON" displayName="GLUCOSE (POC)" /> <statusCode code=" completed" /> <component> <observation moodCode=& quot;EVN" classCode="OBS"> <templateId root=" 2.16.840.1.098559.10..22.4.2" /> <id nullFlavor="NA& quot; /> <code codeSystem="local" code="GLUMON& quot; displayName="GLUCOSE (POC)" /> <statusCode code=& quot;completed" /> <effectiveTime value="984840538887& quot; /> <value unit="mg/dL" xsi:type="PQ" value="119" /> <interpretationCode codeSystem=" local" code="*" /> <referenceRange> <observationRange> <text>70-99</text> </observationRange> </referenceRange> </ observation> </component> </organizer> </entry> & lt;entry> <organizer moodCode="EVN" classCode="BATTERY& quot;> <templateId root="2.16.840.1.089770.10.20.22.4.1" /& gt; <id nullFlavor="NA" /> <code codeSystem=" local" code="GLUMON" displayName="GLUCOSE (POC)" /> <statusCode code="completed" /> <component> <observation moodCode="EVN" classCode="OBS"> <templateId root="2.16.840.1.617933.10.20.22.4.2" /> <id nullFlavor="NA" /> <code codeSystem=" local" code="GLUMON" displayName="GLUCOSE (POC)" /> <statusCode code="completed" /> < effectiveTime value="609890710272" /> <value unit="mg /dL" xsi:type="PQ" value="119" />< interpretationCode codeSystem="local" code="*" /> <referenceRange> <observationRange> < text>70-99</text> </observationRange> </ referenceRange> </observation> </component> </ organizer> </entry> <entry> <organizer moodCode="EVN " classCode="BATTERY"> <templateId root=" 2.16.840.1.746646.10.20.22.4.1" /> <id nullFlavor="NA&quot ; /> <code codeSystem="local" code="GLUMON" displayName="GLUCOSE (POC)" /> <statusCode code=" completed" /> <component> <observation moodCode=& quot;EVN" classCode="OBS"> <templateId root=" 2.16.840.1.916795.10.20.22.4.2" /> <id nullFlavor="NA" /&gt ; <code codeSystem="local" code="GLUMON" displayName="GLUCOSE (POC)" /> <statusCode code=" completed" /> <effectiveTime value="724185680140" /> <value unit="mg/dL" xsi:type="PQ" value=& quot;120" /> <interpretationCode codeSystem="local&quot ; code="*" /> <referenceRange> < observationRange> <text>70-99</text> < /observationRange> </referenceRange> </observation&gt ; </component> </organizer> </entry> <entry> <organizer moodCode="EVN" classCode="BATTERY"> <templateId root="2.16.840.1.104221.10.20.22.4.1" /> < id nullFlavor="NA" /> <code codeSystem="local" code="GLUMON" displayName="GLUCOSE (POC)" /> < statusCode code="completed" /> <component> < observation moodCode="EVN" classCode="OBS"> < templateId root="2.16.840.1.456159.10.20.22.4.2" /> < id nullFlavor="NA" /> <code codeSystem="local&quot ; code="GLUMON" displayName="GLUCOSE (POC)" /> & lt;statusCode code="completed" /> <effectiveTime value= "204622250137" /> <value unit="mg/dL" xsi: type="PQ" value="120" /> <interpretationCode codeSystem="local" code="*" /> < referenceRange> <observationRange> <text>70-99& lt;/text> </observationRange> </referenceRange& gt; </observation> </component> </organizer> & lt;/entry> <entry> <organizer moodCode="EVN" classCode ="BATTERY"> <templateId root=" 2.16.840.1.412651.10.20.22.4.1" /> <id nullFlavor="NA&quot ; /> <code codeSystem="local" code="METAB" displayName="METABOLIC PANEL, BASIC" /> <statusCode code=& quot;completed" /> <component> <observation moodCode=& quot;EVN" classCode="OBS"> <templateId root=" 2.16.840.1.276006.10.20.22.4.2" /> <id nullFlavor="NA& quot; /> <code codeSystem="local" code="K" displayName="POTASSIUM" /> <statusCode code=" completed" /> <effectiveTime value="425709120062" /> <value unit="mmol/L" xsi:type="PQ" value=& quot;3.7" /> <referenceRange> < observationRange> <text>3.5-5.3</text> & lt;/observationRange> </referenceRange> </observation& gt; </component> <component> <observation moodCode="EVN" classCode="OBS"> <templateId root="2.16.840.1.076628.10.20.22.4.2" /> <id nullFlavor ="NA" /> <code codeSystem="local" code=" eGFR" displayName="EST GFR (MDRD)" /> <statusCode code="completed" /> <effectiveTime value=" 611912436497" /> <value unit="mL/min" xsi:type=& quot;PQ" value="> 60" /> <referenceRange&gt ; <observationRange> <text>> 59</ text> </observationRange> </referenceRange> </observation> </component> <component> &lt ;observation moodCode="EVN" classCode="OBS"> &lt ;templateId root="2.16.840.1.193179.10.20.22.4.2" /> < id nullFlavor="NA" /> <code codeSystem="local&quot ; code="GAP" displayName="ANION GAP" /> < statusCode code="completed" /> <effectiveTime value=& quot;291293823989" /> <value unit="mmol/L" xsi:type= "PQ" value="7" /><referenceRange> < observationRange> <text>5-15</text> </ observationRange> </referenceRange> </observation&gt ; </component> <component> <observation moodCode=& quot;EVN" classCode="OBS"> <templateId root=" 2.16.840.1.000876.10.20.22.4.2" /> <id nullFlavor="NA& quot; /> <code codeSystem="local" code="GLU" displayName="GLUCOSE" /> <statusCode code=" completed" /> <effectiveTime value="051374286452" /> <value unit="mg/dL" xsi:type="PQ" value=& quot;125" /> <interpretationCode codeSystem="local&quot ; code="*" /> <referenceRange> < observationRange> <text>70-99</text> < /observationRange> </referenceRange> </observation> </component> <component> <observation moodCode=& quot;EVN" classCode="OBS"> <templateId root=" 2.16.840.1.832133.10.20.22.4.2" /> <id nullFlavor="NA& quot;/> <code codeSystem="local" code="CA" displayName="CALCIUM" /> <statusCode code=" completed" /> <effectiveTime value="803654343040" /> <value unit="mg/dL" xsi:type="PQ" value=& quot;7.9" /> <interpretationCode codeSystem="local&quot ; code="*" /> <referenceRange> < observationRange> <text>8.5-10.1</text> & lt;/observationRange> </referenceRange> </ observation> </component> <component> < observation moodCode="EVN" classCode="OBS"> < templateId root="2.16.840.1.067194.10.20.22.4.2" /> < id nullFlavor="NA" /> <code codeSystem="local&quot ; code="BUN" displayName="BLOOD UREA NITROGEN" /> <statusCode code="completed" /> <effectiveTime value="694416768059" /> <value unit="mg/dL" xsi:type="PQ" value="17" /> <referenceRange> <observationRange> <text>7-20</text> </observationRange> </referenceRange> < /observation> </component> <component> < observation moodCode="EVN" classCode="OBS"> < templateId root="2.16.840.1.165822.10.20.22.4.2" /> < id nullFlavor="NA" /> <code codeSystem="local&quot ; code="CREAT" displayName="CREATININE" /> < statusCode code="completed" /> <effectiveTime value=& quot;983081377401" /> <valueunit="mg/dL" xsi:type= "PQ" value="0.7" /> <interpretationCode codeSystem="local" code="*" /> < referenceRange> <observationRange> <text>0.8-1.3&lt ;/text> </observationRange> </referenceRange&gt ; </observation> </component> <component> <observation moodCode="EVN" classCode="OBS"> &lt ;templateId root="2.16.840.1.309951.10.20.22.4.2" /> < id nullFlavor="NA" /> <code codeSystem="local&quot ; code="NA" displayName="SODIUM" /> < statusCode code="completed" /> <effectiveTime value=& quot;742534616053" /> <value unit="mmol/L" xsi: type="PQ" value="136" /> <referenceRange> <observationRange> <text>135-148</text& gt; </observationRange> </referenceRange> </observation> </component> <component> &lt ;observation moodCode="EVN" classCode="OBS"> &lt ;templateId root="2.16.840.1.766596.10.20.22.4.2" /> < id nullFlavor="NA" /> <code codeSystem="local" code=& quot;CL" displayName="CHLORIDE" /> <statusCode code=& quot;completed" /> <effectiveTime value="176904548656& quot; /> <value unit="mmol/L" xsi:type="PQ" value="104" /> <referenceRange> < observationRange> <text>98-110</text> &lt ;/observationRange> </referenceRange></observation> </component> <component> <observation moodCode=& quot;EVN" classCode="OBS"> <templateId root=" 2.16.840.1.344146.10.20.22.4.2" /> <id nullFlavor="NA& quot; /> <code codeSystem="local" code="CO2" displayName="CARBON DIOXIDE" /> <statusCode code=" completed" /> <effectiveTime value="958022473509" /> <value unit="mmol/L" xsi:type="PQ" value=& quot;25" /> <referenceRange> <observationRange&gt ; <text>21-32</text> </observationRange& gt; </referenceRange> </observation> </ component> </organizer> </entry> <entry> < organizer moodCode="EVN" classCode="BATTERY"> < templateId root="2.16.840.1.259633.10.20.22.4.1" /> <id nullFlavor="NA" /> <code codeSystem="local" code= "METAB" displayName="METABOLIC PANEL, BASIC" /> < statusCode code="completed" /> <component> < observation moodCode="EVN" classCode="OBS"> < templateId root="2.16.840.1.276326.10.20.22.4.2" /> < id nullFlavor="NA" /> <code codeSystem="local&quot ; code="K" displayName="POTASSIUM" /> < statusCode code="completed" /> <effectiveTime value=& quot;009070440715" /> <value unit="mmol/L" xsi: type="PQ" value="3.7" /> <referenceRange> <observationRange> <text>3.5-5.3</text& gt; </observationRange> </referenceRange> &lt ;/observation> </component> <component> < observation moodCode="EVN" classCode="OBS"> < templateId root="2.16.840.1.039171.10.20.22.4.2" /> <id nullFlavor="NA" /> <code codeSystem="local" code="eGFR" displayName="EST GFR (MDRD)" /> < statusCode code="completed" /> <effectiveTime value=& quot;258040227596" /> <value unit="mL/min" xsi: type="PQ" value="> 60" /> < referenceRange> <observationRange> <text> > 59</text> </observationRange> </ referenceRange> </observation> </component> < component> <observation moodCode="EVN" classCode=" OBS"> <templateId root="2.16.840.1.847903.10.20.22.4.2& quot; /> <id nullFlavor="NA" /> <code codeSystem= "local" code="GAP" displayName="ANION GAP" /> <statusCode code="completed" /> < effectiveTime value="982138450116" /> <value unit=&quot ;mmol/L" xsi:type="PQ" value="7" /> < referenceRange> <observationRange> <text>5-15</ text> </observationRange> </referenceRange> </observation> </component> <component> <observation moodCode="EVN" classCode="OBS"> <templateId root="2.16.840.1.363413.10..22.4.2" /> <id nullFlavor="NA" /> <code codeSystem=" local" code="GLU" displayName="GLUCOSE" /> <statusCode code="completed" /> <effectiveTime value ="633924071720" /> <value unit="mg/dL" xsi: type="PQ" value="125" /> <interpretationCode codeSystem="local" code="*" /> < referenceRange> <observationRange> <text> 70-99</text> </observationRange> </ referenceRange> </observation> </component> < component> <observation moodCode="EVN" classCode=" OBS"> <templateId root="2.16.840.1.593841.10..22.4.2& quot; /> <id nullFlavor="NA" /> <code codeSystem="local" code="CA" displayName="CALCIUM&quot ; /> <statusCode code="completed" /> < effectiveTime value="200579261140" /> <value unit="mg/ dL" xsi:type="PQ" value="7.9" /> < interpretationCode codeSystem="local" code="*" /> <referenceRange> <observationRange> < text>8.5-10.1</text></observationRange> </ referenceRange> </observation> </component> < component> <observation moodCode="EVN" classCode=" OBS"> <templateId root="2.16.840.1.580499.10.20.22.4.2& quot; /> <id nullFlavor="NA" /> <code codeSystem="local" code="BUN" displayName="BLOOD UREA NITROGEN" /> <statusCode code="completed" /> <effectiveTime value="370244842827" /> < value unit="mg/dL" xsi:type="PQ" value="17" /> <referenceRange> <observationRange> < text>7-20</text> </observationRange> </ referenceRange> </observation> </component> < component> <observation moodCode="EVN" classCode=" OBS"> <templateId root="2.16.840.1.027942.10.20.22.4.2" / > <id nullFlavor="NA" /> <code codeSystem="local" code="CREAT" displayName="CREATININE " /> <statusCode code="completed" /> & lt;effectiveTime value="241394577049" /> <value unit=& quot;mg/dL" xsi:type="PQ" value="0.7" /> & lt;interpretationCode codeSystem="local" code="*" /> <referenceRange> <observationRange> <text& gt;0.8-1.3</text> </observationRange> </ referenceRange> </observation> </component> < component> <observation moodCode="EVN" classCode=" OBS"> <templateId root="2.16.840.1.347592.10..22.4.2& quot; /> <id nullFlavor="NA" /> <code codeSystem="local" code="NA" displayName="SODIUM" /> <statusCode code="completed" /> < effectiveTime value="805427938802" /> <value unit=&quot ;mmol/L" xsi:type="PQ" value="136" /> < referenceRange> <observationRange> <text> 135-148</text> </observationRange> </ referenceRange> </observation> </component> < component> <observation moodCode="EVN" classCode=" OBS"> <templateId root="2.16.840.1.582558.10.20.22.4.2& quot; /> <id nullFlavor="NA" /> <code codeSystem="local" code="CL" displayName="CHLORIDE&quot ; /> <statusCode code="completed" /> < effectiveTime value="343050544083" /> <value unit=&quot ;mmol/L" xsi:type="PQ" value="104" /> < referenceRange> <observationRange> <text> 98-110</text> </observationRange> </referenceRange> </observation> </component> <component> <observation moodCode="EVN" classCode="OBS"> <templateId root="2.16.840.1.121681.10.20.22.4.2" /> <id nullFlavor="NA" /> <code codeSystem=" local" code="CO2" displayName="CARBON DIOXIDE" /> <statusCode code="completed" /> < effectiveTime value="478097562031" /> <value unit=&quot ;mmol/L" xsi:type="PQ" value="25" /> < referenceRange> <observationRange> <text>21-32&lt ;/text> </observationRange> </referenceRange&gt ; </observation> </component> </organizer> &lt ;/entry> <entry> <organizer moodCode="EVN" classCode=& quot;BATTERY"> <templateId root=" 2.16.840.1.633403.10.20.22.4.1" /> <id nullFlavor="NA&quot ; /> <code codeSystem="local" code="GLUMON" displayName="GLUCOSE (POC)" /> <statusCode code=" completed" /> <component> <observation moodCode=& quot;EVN" classCode="OBS"> <templateId root=" 2.16.840.1.189123.10..22.4.2" /> <id nullFlavor="NA& quot; /> <code codeSystem="local" code="GLUMON& quot; displayName="GLUCOSE (POC)" /> <statusCode code=& quot;completed" /> <effectiveTime value="763643264245" / > <value unit="mg/dL"xsi:type="PQ" value=& quot;124" /> <interpretationCode codeSystem="local&quot ; code="*" /> <referenceRange> < observationRange> <text>70-99</text> < /observationRange> </referenceRange> </observation& gt; </component> </organizer> </entry> <entry&gt ; <organizer moodCode="EVN" classCode="BATTERY"> & lt;templateId root="2.16.840.1.987988.10.20.22.4.1" /> <id nullFlavor="NA" /> <code codeSystem="local" code= "GLUMON" displayName="GLUCOSE (POC)" /> < statusCode code="completed" /> <component> < observation moodCode="EVN" classCode="OBS"> < templateId root="2.16.840.1.013331.10.20.22.4.2" /> < id nullFlavor="NA" /> <code codeSystem="local&quot ; code="GLUMON" displayName="GLUCOSE (POC)" /> & lt;statusCode code="completed" /> <effectiveTime value= "609097928265" /> <value unit="mg/dL" xsi: type="PQ" value="124" /> <interpretationCode codeSystem="local" code="*" /> < referenceRange> <observationRange> <text> 70-99</text> </observationRange> </ referenceRange> </observation> </component> </ organizer> </entry> <entry> <organizer moodCode="EVN " classCode="BATTERY"> <templateId root=" 2.16.840.1.770356.10.20.22.4.1" /> <id nullFlavor="NA&quot ; /> <code codeSystem="local" code="GLUMON" displayName="GLUCOSE (POC)" /> <statusCode code=" completed" /> <component> <observation moodCode=& quot;EVN" classCode="OBS"> <templateId root=" 2.16.840.1.330166.10.20.22.4.2" /> <id nullFlavor="NA& quot; /> <code codeSystem="local" code="GLUMON& quot; displayName="GLUCOSE (POC)" /> <statusCode code=& quot;completed" /> <effectiveTime value="845493392647& quot; /> <value unit="mg/dL" xsi:type="PQ" value="120" /> <interpretationCode codeSystem=" local" code="*" /> <referenceRange> <observationRange> <text>70-99</text> &lt ;/observationRange> </referenceRange> </observation& gt;</component> </organizer> </entry> <entry> & lt;organizer moodCode="EVN" classCode="BATTERY"> &lt ;templateId root="2.16.840.1.904950.10.20.22.4.1" /> <id nullFlavor="NA" /> <code codeSystem="local" code= "GLUMON" displayName="GLUCOSE (POC)" /> < statusCode code="completed" /> <component> < observation moodCode="EVN" classCode="OBS"> < templateId root="2.16.840.1.924743.10.20.22.4.2" /> < id nullFlavor="NA" /> <code codeSystem="local&quot ; code="GLUMON" displayName="GLUCOSE (POC)" /> & lt;statusCode code="completed" /> <effectiveTime value= "811724401154" /> <value unit="mg/dL" xsi: type="PQ" value="120" /> <interpretationCode codeSystem="local" code="*" /> < referenceRange> <observationRange> <text>70-99& lt;/text> </observationRange> </referenceRange& gt; </observation> </component> </organizer> & lt;/entry> <entry> <organizer moodCode="EVN" classCode ="BATTERY"> <templateId root=" 2.16.840.1.814404.10.20.22.4.1" /><id nullFlavor="NA" /&gt ; <code codeSystem="local" code="GLUMON" displayName ="GLUCOSE (POC)" /> <statusCode code="completed" /> <component> <observation moodCode="EVN" classCode="OBS"> <templateId root=" 2.16.840.1.256489.10.20.22.4.2" /> <id nullFlavor="NA& quot; /> <code codeSystem="local" code="GLUMON& quot; displayName="GLUCOSE (POC)" /> <statusCode code=& quot;completed" /> <effectiveTime value="432856131540" /> <value unit="mg/dL" xsi:type="PQ" value=& quot;127" /> <interpretationCode codeSystem="local&quot ; code="*" /> <referenceRange> < observationRange> <text>70-99</text> < /observationRange> </referenceRange> </observation& gt; </component> </organizer> </entry> <entry&gt ; <organizer moodCode="EVN" classCode="BATTERY"> & lt;templateId root="2.16.840.1.131295.10.20.22.4.1" /> <id nullFlavor="NA" /> <code codeSystem="local" code= "GLUMON" displayName="GLUCOSE (POC)" /> < statusCode code="completed" /> <component> < observation moodCode="EVN" classCode="OBS"> < templateIdroot="2.16.840.1.138871.10.20.22.4.2" /> <id nullFlavor="NA" /> <code codeSystem="local" code="GLUMON" displayName="GLUCOSE (POC)" /> &lt ;statusCode code="completed" /> <effectiveTime value=& quot;628609008104" /> <value unit="mg/dL" xsi:type ="PQ"value="127" /> <interpretationCode codeSystem="local" code="*" /> < referenceRange> <observationRange> <text> 70-99</text> </observationRange> </ referenceRange></observation> </component> </organizer > </entry> <entry><organizer moodCode="EVN" classCode="BATTERY"> <templateId root=" 2.16.840.1.138842.10.20.22.4.1" /> <id nullFlavor="NA&quot ; /> <code codeSystem="local" code="CBC" displayName="CBC" /> <statusCode code="completed&quot ; /> <component> <observation moodCode="EVN" classCode="OBS"> <templateId root=" 2.16.840.1.166462.10.20.22.4.2" /> <id nullFlavor="NA& quot; /> <code codeSystem="local" code="CBCCOM& quot; displayName="COMMENT" /> <statusCode code=" completed" /> <effectiveTime value="585300427446" /><value unit="" xsi:type="PQ" value="REVIEWED& quot; /> <referenceRange> <observationRange> <text /> </observationRange> </ referenceRange> </observation> </component> < component> <observation moodCode="EVN" classCode=" OBS"> <templateId root="2..840.1.505589.10..22.4.2& quot; /> <id nullFlavor="NA" /> <code codeSystem="local" code="MCH" displayName="MEAN CELL HGB" /> <statusCode code="completed" /> < effectiveTime value="971939205567" /> <value unit=&quot ;pg" xsi:type="PQ" value="34.0" /> < interpretationCode codeSystem="local" code="*" /> <referenceRange> <observationRange> < text>27.0-33.0</text> </observationRange> &lt ;/referenceRange> </observation> </component> & lt;component> <observation moodCode="EVN" classCode=&quot ;OBS"> <templateId root="2.16.840.1.764963.10.20.22.4.2 " /> <id nullFlavor="NA" /> <code codeSystem ="local" code="MCHC" displayName="MEAN CELL HGB CONCENTRATION" /> <statusCode code="completed" /& gt; <effectiveTime value="034735044578" /> &lt ;value unit="g/dl" xsi:type="PQ" value="34.3" /&gt ; <referenceRange> <observationRange> <text>32.0-36.0</text> </observationRange> </referenceRange> </observation> </component> <component> <observation moodCode="EVN" classCode= "OBS"> <templateId root=" 2.16.840.1.617868.10.20.22.4.2" /> <id nullFlavor="NA& quot; /><code codeSystem="local" code="MCV" displayName="MEAN CELL VOLUME" /> <statusCode code=& quot;completed" /> <effectiveTime value="669585295919& quot; /> <value unit="fl" xsi:type="PQ" value ="99.1" /> <referenceRange> < observationRange> <text>80.0-100.0</text> </observationRange> </referenceRange> </ observation> </component> <component> < observation moodCode="EVN" classCode="OBS"> < templateId root="2.16.840.1.296873.10.20.22.4.2" /> < id nullFlavor="NA" /> <code codeSystem="local&quot ; code="RBC" displayName="RED BLOOD CELL" /> &lt ;statusCode code="completed" /> <effectiveTime value=& quot;063096181947" /> <value unit="m/cumm" xsi: type="PQ" value="2.97" /> < interpretationCode codeSystem="local" code="*" /> <referenceRange> <observationRange> < text>4.00-6.00</text> </observationRange> &lt ;/referenceRange> </observation> </component> & lt;component> <observation moodCode="EVN" classCode=&quot ;OBS"> <templateId root="2.16.840.1.363983.10.20.22.4.2 " /> <id nullFlavor="NA" /> <code codeSystem="local" code="RDW" displayName="RED CELL DISTRIBUTION WIDTH" /> <statusCode code="completed&quot ; /> <effectiveTime value="395028180239" /> < value unit="%" xsi:type="PQ" value="13.4" /> <referenceRange> <observationRange> & lt;text>11.0-15.6</text> </observationRange> </referenceRange> </observation> </component> <component> <observation moodCode="EVN" classCode=& quot;OBS"> <templateId root=" 2.16.840.1.146389.10.20.22.4.2" /> <id nullFlavor="NA& quot; /> <code codeSystem="local" code="WBC" displayName="WHITE BLOOD CELL" /> <statusCode code=& quot;completed" /> <effectiveTime value="710864583742& quot; /> <value unit="k/cumm" xsi:type="PQ" value="7.1" /> <referenceRange> < observationRange> <text>5.0-10.0</text> </ observationRange> </referenceRange> </observation&gt ; </component> <component> <observation moodCode ="EVN" classCode="OBS"> <templateId root=& quot;2.16.840.1.222812.10..22.4.2" /> <id nullFlavor="NA&quot ; /> <code codeSystem="local" code="HGBT" displayName="HEMOGLOBIN" /> <statusCode code=" completed" /> <effectiveTime value="812027612474" /> <value unit="gm/dL" xsi:type="PQ" value=& quot;10.1" /> <interpretationCode codeSystem="local& quot; code="*" /> <referenceRange> < observationRange> <text>14.0-18.0</text> </observationRange> </referenceRange> </observation > </component> <component> <observation moodCode="EVN" classCode="OBS"> <templateId root="2.16.840.1.671473.10.20.22.4.2" /> <id nullFlavor ="NA" /> <code codeSystem="local" code=" HCTT" displayName="HEMATOCRIT" /> <statusCode code ="completed" /> <effectiveTimevalue="728675192503& quot; /> <value unit="%" xsi:type="PQ&quot ; value="29.5" /> <interpretationCode codeSystem=" local" code="*" /> <referenceRange> <observationRange><text>40.0-54.0</text> </ observationRange> </referenceRange> </observation&gt ; </component> <component> <observation moodCode ="EVN" classCode="OBS"> <templateId root=& quot;2.16.840.1.535751.10.20.22.4.2" /> <id nullFlavor=&quot ;NA" /> <code codeSystem="local" code="PLT& quot; displayName="PLATELET COUNT" /> <statusCode code=" completed" /> <effectiveTime value="429474209236" /> <value unit="k/cumm" xsi:type="PQ" value=& quot;61" /> <interpretationCode codeSystem="local&quot ; code="*" /> <referenceRange> < observationRange> <text>150-450</text> & lt;/observationRange> </referenceRange> </ observation> </component> </organizer> </entry> & lt;entry> <organizer moodCode="EVN" classCode="BATTERY& quot;> <templateId root="2.16.840.1.327502.10.20.22.4.1" /& gt; <id nullFlavor="NA" /> <code codeSystem=" local" code="METAB" displayName="METABOLIC PANEL, BASIC&quot ; /> <statusCode code="completed" /> <component& gt; <observation moodCode="EVN" classCode="OBS"&gt ; <templateId root="2.16.840.1.014483.10.20.22.4.2" /> <id nullFlavor="NA" /> <code codeSystem=& quot;local" code="K" displayName="POTASSIUM" /> <statusCode code="completed" /> < effectiveTime value="[id number]" /> <value unit=&quot ;mmol/L" xsi:type="PQ" value="4.1" /> < referenceRange> <observationRange> <text> 3.5-5.3</text> </observationRange> </referenceRange > </observation> </component> <component> <observation moodCode="EVN" classCode="OBS"> <templateId root="[id number]" /> & lt;id nullFlavor="NA" /> <code codeSystem="local& quot; code="eGFR" displayName="EST GFR (MDRD)" /> <statusCode code="completed" /> <effectiveTime value="[id number]" /> <value unit="mL/min" xsi:type="PQ" value="> 60" /> < referenceRange> <observationRange> <text> > 59</text> </observationRange> </ referenceRange> </observation> </component> < component> <observation moodCode="EVN" classCode=" OBS"> <templateId root="2.16.840.1.818517.10.20.22.4.2& quot; /> <id nullFlavor="NA" /> <code codeSystem="local" code="GAP" displayName="ANION GAP& quot; /> <statusCode code="completed" /> & lt;effectiveTime value="270378211052" /> <value unit=& quot;mmol/L" xsi:type="PQ" value="7" /> &lt ;referenceRange> <observationRange> <text&gt ;5-15</text> </observationRange> </ referenceRange> </observation> </component> < component> <observation moodCode="EVN" classCode=" OBS"> <templateId root="2.16.840.1.441251.10.20.22.4.2& quot; /> <id nullFlavor="NA" /> <code codeSystem="local" code="GLU" displayName="GLUCOSE&quot ; /> <statusCode code="completed" /> < effectiveTimevalue="612755373372" /> <value unit=" mg/dL" xsi:type="PQ" value="90" /> < referenceRange> <observationRange> <text>70-99 </text> </observationRange> </referenceRange& gt; </observation> </component> <component> <observation moodCode="EVN" classCode="OBS"> <templateId root="2.16.840.1.344571.10..22.4.2" /> <id nullFlavor="NA" /> <code codeSystem=&quot ;local" code="CA" displayName="CALCIUM" /> <statusCode code="completed" /> <effectiveTime value ="173529418502" /> <value unit="mg/dL" xsi: type="PQ" value="8.0" /> <interpretationCode codeSystem="local" code="*" /> < referenceRange> <observationRange> <text> 8.5-10.1</text> </observationRange> </ referenceRange> </observation> </component> < component> <observation moodCode="EVN" classCode=" OBS"> <templateId root="2.16.840.1.886106.10.20.22.4.2& quot; /> <id nullFlavor="NA" /> <code codeSystem="local" code="BUN" displayName="BLOOD UREA NITROGEN" /> <statusCode code="completed" /> <effectiveTime value="613602035426" /> < value unit="mg/dL" xsi:type="PQ" value="15" /> <referenceRange> <observationRange> <text>7-20</text> </observationRange> & lt;/referenceRange> </observation> </component> <component> <observation moodCode="EVN" classCode=& quot;OBS"> <templateId root=" 2.16.840.1.053718.10.20.22.4.2" /> <id nullFlavor="NA& quot; /> <code codeSystem="local" code="CREAT&quot ;displayName="CREATININE" /> <statusCode code=" completed" /> <effectiveTime value="589638689232" /&gt ; <value unit="mg/dL" xsi:type="PQ" value=" 0.6" /> <interpretationCode codeSystem="local" code="*" /> <referenceRange> < observationRange> <text>0.8-1.3</text> & lt;/observationRange> </referenceRange> </ observation> </component> <component> <observation moodCode="EVN" classCode="OBS"> <templateId root="2.16.840.1.736539.10..22.4.2" /> <id nullFlavor ="NA" /> <code codeSystem="local" code="NA& quot; displayName="SODIUM" /> <statusCode code=" completed" /> <effectiveTime value="120857143280" /> <value unit="mmol/L" xsi:type="PQ" value=& quot;135" /> <referenceRange> < observationRange> <text>135-148</text> & lt;/observationRange> </referenceRange> </observation&gt ; </component> <component> <observation moodCode ="EVN" classCode="OBS"> <templateId root=& quot;2.16.840.1.279122.10.20.22.4.2" /> <id nullFlavor=&quot ;NA" /> <code codeSystem="local" code="CL& quot; displayName="CHLORIDE" /> <statusCode code=" completed" /> <effectiveTime value="013831137391" /> <value unit="mmol/L" xsi:type="PQ" value=&quot ;103" /><referenceRange> <observationRange> <text>98-110</text> </observationRange> </referenceRange> </observation> </component& gt; <component> <observation moodCode="EVN" classCode="OBS"> <templateId root=" 2.16.840.1.626625.10.20.22.4.2" /> <id nullFlavor="NA& quot; /> <code codeSystem="local" code="CO2" displayName="CARBON DIOXIDE" /> <statusCode code=" completed" /> <effectiveTime value="185793823326" /> <value unit="mmol/L" xsi:type="PQ" value=& quot;25" /> <referenceRange> < observationRange> <text>21-32</text> < /observationRange> </referenceRange> </observation& gt; </component> </organizer> </entry> <entry&gt ; <organizer moodCode="EVN" classCode="BATTERY"> <templateId root="2.16.840.1.001900.10.20.22.4.1"/> &lt ;id nullFlavor="NA" /> <code codeSystem="local" code="CBC" displayName="CBC" /> <statusCode code= "completed" /> <component> <observation moodCode ="EVN" classCode="OBS"> <templateId root=" 2.16.840.1.150764.10.20.22.4.2" /> <id nullFlavor="NA& quot; /> <code codeSystem="local" code="CBCCOM& quot; displayName="COMMENT" /> <statusCode code=" completed" /> <effectiveTime value="712976668682" /> <value unit="" xsi:type="PQ" value=" REVIEWED" /> <referenceRange> < observationRange> <text /> </ observationRange> </referenceRange> </observation&gt ; </component> <component> <observation moodCode ="EVN" classCode="OBS"> <templateId root=& quot;2.16.840.1.306680.10.20.22.4.2" /> <id nullFlavor=&quot ;NA" /> <code codeSystem="local" code="MCH& quot; displayName="MEAN CELL HGB" /> <statusCode code=" completed" /> <effectiveTime value="102744863191" /> <value unit="pg" xsi:type="PQ" value=&quot ;34.0" /> <interpretationCode codeSystem="local" code="*" /> <referenceRange> <observationRange& gt; <text>27.0-33.0</text> </ observationRange> </referenceRange> </observation&gt ; </component> <component> <observation moodCode ="EVN" classCode="OBS"> <templateId root=& quot;2.16.840.1.337282.10.20.22.4.2" /> <id nullFlavor=&quot ;NA" /> <code codeSystem="local" code="MCHC& quot; displayName="MEAN CELL HGB CONCENTRATION" /> < statusCode code="completed" /> <effectiveTime value=& quot;401972615827" /> <value unit="g/dl" xsi:type=& quot;PQ" value="34.3" /><referenceRange> < observationRange> <text>32.0-36.0</text> </observationRange> </referenceRange> </ observation> </component> <component> < observation moodCode="EVN" classCode="OBS"> < templateId root="2.16.840.1.374180.10.20.22.4.2" /> < id nullFlavor="NA" /> <code codeSystem="local&quot ; code="MCV" displayName="MEAN CELL VOLUME" /> & lt;statusCode code="completed" /> <effectiveTime value= "218254137113" /> <value unit="fl" xsi:type=& quot;PQ" value="99.1" /> <referenceRange> <observationRange> <text>80.0-100.0</text&gt ; </observationRange> </referenceRange> </ observation> </component> <component> < observation moodCode="EVN" classCode="OBS"> < templateId root="2.16.840.1.804240.10.20.22.4.2" /> < id nullFlavor="NA" /> <code codeSystem="local&quot ; code="RBC" displayName="RED BLOOD CELL" /> &lt ;statusCode code="completed"/> <effectiveTime value=& quot;508070513919" /> <value unit="m/cumm" xsi: type="PQ" value="2.97" /> < interpretationCode codeSystem="local" code="*" /> <referenceRange> <observationRange> < text>4.00-6.00</text> </observationRange> &lt ;/referenceRange> </observation> </component> & lt;component> <observation moodCode="EVN" classCode=&quot ;OBS"> <templateId root="2.16.840.1.885082.10.20.22.4.2 " /> <id nullFlavor="NA" /> <code codeSystem="local" code="RDW" displayName="RED CELL DISTRIBUTION WIDTH" /> <statusCode code="completed&quot ; /><effectiveTime value="545557312352" /> < value unit="%"xsi:type="PQ" value="13.4" / > <referenceRange> <observationRange> <text>11.0-15.6</text> </observationRange> </referenceRange> </observation> </component > <component> <observation moodCode="EVN" classCode="OBS"> <templateId root=" 2.16.840.1.905297.10.20.22.4.2" /> <id nullFlavor="NA& quot; /> <code codeSystem="local" code="WBC" displayName="WHITE BLOOD CELL" /> <statusCode code=& quot;completed" /> <effectiveTime value="528405145061& quot; /> <value unit="k/cumm" xsi:type="PQ" value="7.1" /> <referenceRange> < observationRange> <text>5.0-10.0</text> & lt;/observationRange></referenceRange> </observation> </component> <component> <observation moodCode=" EVN" classCode="OBS"> <templateId root=" 2.16.840.1.593357.10.20.22.4.2" /> <id nullFlavor="NA& quot; /> <code codeSystem="local" code="HGBT" displayName="HEMOGLOBIN" /> <statusCode code=" completed" /> <effectiveTime value="176754760583" /> <value unit="gm/dL" xsi:type="PQ" value=& quot;10.1" /> <interpretationCode codeSystem="local& quot; code="*" /> <referenceRange> < observationRange> <text>14.0-18.0</text> </observationRange> </referenceRange> </ observation> </component> <component> < observation moodCode="EVN" classCode="OBS"> < templateId root="2.16.840.1.810089.10.20.22.4.2" /> < id nullFlavor="NA" /> <code codeSystem="local&quot ; code="HCTT" displayName="HEMATOCRIT" /> < statusCode code="completed" /> <effectiveTime value=& quot;241625674269" /> <value unit="%" xsi:type ="PQ" value="29.5" /> <interpretationCode codeSystem="local" code="*" /> < referenceRange> <observationRange> <text> 40.0-54.0</text> </observationRange> </ referenceRange> </observation> </component> < component> <observation moodCode="EVN" classCode=" OBS"> <templateId root="2.16.840.1.172509.10.20.22.4.2& quot; /> <id nullFlavor="NA" /> <code codeSystem ="local" code="PLT" displayName="PLATELET COUNT" / > <statusCode code="completed" /> < effectiveTime value="342492778080" /> <value unit=&quot ;k/cumm" xsi:type="PQ" value="61" /> < interpretationCode codeSystem="local" code="*" /> <referenceRange> <observationRange> < text>150-450</text> </observationRange> </ referenceRange> </observation> </component> </ organizer> </entry> <entry> <organizer moodCode="EVN " classCode="BATTERY"> <templateId root=" 2.16.840.1.318153.10.20.22.4.1" /> <id nullFlavor="NA&quot ; /> <code codeSystem="local" code="METAB" displayName="METABOLIC PANEL, BASIC" /> <statusCode code=& quot;completed" /> <component> <observation moodCode= "EVN" classCode="OBS"> <templateId root=" 2.16.840.1.003344.10.20.22.4.2" /> <id nullFlavor="NA& quot; /> <code codeSystem="local" code="K" displayName="POTASSIUM" /> <statusCode code=" completed" /> <effectiveTime value="567894427583" /> <value unit="mmol/L" xsi:type="PQ" value=& quot;4.1" /> <referenceRange> < observationRange> <text>3.5-5.3</text> & lt;/observationRange> </referenceRange> </observation> </component> <component> <observation moodCode=&quot ;EVN" classCode="OBS"> <templateIdroot=" 2.16.840.1.118688.10.20.22.4.2" /> <id nullFlavor="NA& quot; /> <code codeSystem="local" code="eGFR&quot ; displayName="EST GFR (MDRD)" /> <statusCode code=& quot;completed" /> <effectiveTime value="072569599783& quot; /> <value unit="mL/min" xsi:type="PQ" value="> 60" /> <referenceRange> & lt;observationRange> <text>> 59</text> </observationRange> </referenceRange> </ observation> </component> <component> < observation moodCode="EVN" classCode="OBS"> < templateId root="2.16.840.1.655613.10.20.22.4.2" /> < id nullFlavor="NA" /> <code codeSystem="local" code="GAP" displayName="ANION GAP" /> < statusCode code="completed" /> <effectiveTime value=& quot;306049301982" /> <value unit="mmol/L" xsi: type="PQ" value="7" /> <referenceRange> <observationRange> <text>5-15</text> </observationRange> </referenceRange> </ observation> </component> <component> < observation moodCode="EVN" classCode="OBS"> < templateId root="2.16.840.1.785425.10.20.22.4.2" /> < id nullFlavor="NA" /> <code codeSystem="local&quot ; code="GLU" displayName="GLUCOSE" /> < statusCode code="completed" /> <effectiveTime value=& quot;756755904313" /> <value unit="mg/dL" xsi:type=& quot;PQ" value="90" /> <referenceRange> <observationRange> <text>70-99</text> </observationRange> </referenceRange> </ observation> </component> <component> < observation moodCode="EVN" classCode="OBS"> < templateId root="2.16.840.1.818528.10.20.22.4.2" /> <id nullFlavor="NA" /> <code codeSystem="local" code="CA" displayName="CALCIUM" /> < statusCode code="completed"/> <effectiveTime value=& quot;317499809026" /> <value unit="mg/dL" xsi:type ="PQ" value="8.0" /> <interpretationCode codeSystem="local" code="*" /> < referenceRange> <observationRange> <text> 8.5-10.1</text> </observationRange> </ referenceRange> </observation> </component> < component> <observation moodCode="EVN" classCode=" OBS"> <templateId root="2.16.840.1.938250.10.20.22.4.2& quot; /> <id nullFlavor="NA" /> <code codeSystem="local" code="BUN" displayName="BLOOD UREA NITROGEN" /> <statusCode code="completed" /> <effectiveTime value="811560251812" /> < value unit="mg/dL" xsi:type="PQ" value="15" /> <referenceRange> <observationRange> <text>7-20</text> </observationRange> & lt;/referenceRange> </observation> </component> <component> <observation moodCode="EVN" classCode=& quot;OBS"> <templateId root=" 2.16.840.1.623919.10.20.22.4.2" /> <id nullFlavor="NA& quot; /><code codeSystem="local" code="CREAT" displayName="CREATININE" /> <statusCode code=" completed" /> <effectiveTime value="749074740455" /> <value unit="mg/dL" xsi:type="PQ" value=& quot;0.6" /> <interpretationCode codeSystem="local&quot ; code="*" /> <referenceRange> < observationRange> <text>0.8-1.3</text> & lt;/observationRange> </referenceRange> </ observation> </component> <component> < observation moodCode="EVN" classCode="OBS"> < templateId root="2.16.840.1.193763.10..22.4.2" /> < id nullFlavor="NA" /> <code codeSystem="local&quot ; code="NA" displayName="SODIUM" /> < statusCode code="completed" /> <effectiveTime value=& quot;155134778787" /> <value unit="mmol/L" xsi: type="PQ" value="135" /> <referenceRange> <observationRange> <text>135-148</text& gt; </observationRange> </referenceRange> </observation> </component> <component> &lt ;observation moodCode="EVN" classCode="OBS"> &lt ;templateId root="2.16.840.1.313893.10..22.4.2" /> < id nullFlavor="NA" /> <code codeSystem="local&quot ; code="CL" displayName="CHLORIDE" /> < statusCode code="completed" /> <effectiveTime value=" 249325758951" /> <value unit="mmol/L"xsi:type=& quot;PQ" value="103" /> <referenceRange> <observationRange> <text>98-110</text> </observationRange> </referenceRange> </ observation> </component> <component> < observation moodCode="EVN" classCode="OBS"> < templateId root="2.16.840.1.659899.10.20.22.4.2" /> < id nullFlavor="NA" /> <code codeSystem="local&quot ; code="CO2" displayName="CARBON DIOXIDE" /> &lt ;statusCode code="completed" /> <effectiveTime value=& quot;523481788604" /> <value unit="mmol/L" xsi: type="PQ" value="25" /> <referenceRange> <observationRange> <text>21-32</text> </observationRange> </referenceRange> & lt;/observation> </component> </organizer> </entry&gt ; <entry> <organizer moodCode="EVN" classCode=" BATTERY"> <templateId root="2.16.840.1.115481.10.20.22.4.1& quot; /> <id nullFlavor="NA" /> <code codeSystem ="local" code="GLUMON" displayName="GLUCOSE (POC)&quot ; /> <statusCode code="completed" /> <component& gt; <observation moodCode="EVN" classCode="OBS"> <templateId root="2.16.840.1.082850.10.20.22.4.2" /> <id nullFlavor="NA" /> <code codeSystem="local " code="GLUMON" displayName="GLUCOSE (POC)" /> <statusCode code="completed" /> <effectiveTime value="437755793116" /> <value unit="mg/dL" xsi:type="PQ" value="113" /> < interpretationCode codeSystem="local" code="*" /> <referenceRange> <observationRange> < text>70-99</text> </observationRange> </ referenceRange> </observation> </component> </ organizer> </entry> <entry> <organizer moodCode="EVN " classCode="BATTERY"> <templateId root=" 2.16.840.1.510503.10.20.22.4.1" /> <id nullFlavor="NA&quot ; /> <code codeSystem="local" code="GLUMON" displayName="GLUCOSE (POC)" /><statusCode code="completed& quot; /> <component> <observation moodCode="EVN& quot; classCode="OBS"> <templateId root=" 2.16.840.1.673960.10.20.22.4.2" /> <id nullFlavor="NA& quot; /> <code codeSystem="local" code="GLUMON& quot; displayName="GLUCOSE (POC)" /> <statusCode code=& quot;completed" /> <effectiveTime value="432685720489& quot;/> <value unit="mg/dL" xsi:type="PQ" value="113" /> <interpretationCode codeSystem="local " code="*" /> <referenceRange> < observationRange> <text>70-99</text> </ observationRange> </referenceRange> </observation&gt ; </component> </organizer> </entry> <entry> <organizer moodCode="EVN" classCode="BATTERY"> <templateId root="2.16.840.1.631664.10.20.22.4.1" /> < id nullFlavor="NA" /> <code codeSystem="local" code="GLUMON" displayName="GLUCOSE (POC)" /> < statusCode code="completed" /> <component> < observation moodCode="EVN" classCode="OBS"> < templateId root="2.16.840.1.753296.10.20.22.4.2" /> <id nullFlavor="NA" /> <code codeSystem="local" code="GLUMON" displayName="GLUCOSE (POC)" /> &lt ;statusCode code="completed" /> <effectiveTime value=& quot;873410947395" /> <valueunit="mg/dL" xsi:type= "PQ" value="124" /> <interpretationCode codeSystem="local" code="*" /> < referenceRange> <observationRange> <text>70-99</ text> </observationRange> </referenceRange> </observation> </component> </organizer> </ entry> <entry> <organizer moodCode="EVN" classCode=& quot;BATTERY"> <templateId root=" 2.16.840.1.765184.10.20.22.4.1" /> <id nullFlavor="NA&quot ; /> <code codeSystem="local" code="GLUMON" displayName="GLUCOSE (POC)" /> <statusCode code=" completed" /> <component> <observation moodCode=" EVN" classCode="OBS"> <templateId root=" 2.16.840.1.113803.10.20.22.4.2" /> <id nullFlavor="NA& quot; /> <code codeSystem="local" code="GLUMON& quot; displayName="GLUCOSE (POC)" /> <statusCode code=& quot;completed" /> <effectiveTime value="331727555570" /& gt; <value unit="mg/dL" xsi:type="PQ" value=& quot;124" /> <interpretationCode codeSystem="local&quot ; code="*" /> <referenceRange> < observationRange> <text>70-99</text> < /observationRange> </referenceRange> </observation& gt; </component> </organizer> </entry> <entry&gt ; <organizer moodCode="EVN" classCode="BATTERY"> <templateId root="2.16.840.1.988266.10.20.22.4.1" /> & lt;id nullFlavor="NA" /> <code codeSystem="local&quot ; code="GLUMON" displayName="GLUCOSE (POC)" /> < statusCode code="completed" /> <component> < observation moodCode="EVN" classCode="OBS"> < templateId root="2.16.840.1.492639.10.20.22.4.2" /> < id nullFlavor="NA" /> <code codeSystem="local" code="GLUMON" displayName="GLUCOSE (POC)" /> &lt ;statusCode code="completed" /> <effectiveTime value=& quot;891849736994" /> <value unit="mg/dL" xsi:type ="PQ" value="103" /> <interpretationCode codeSystem="local" code="*" /> < referenceRange> <observationRange> <text> 70-99</text> </observationRange> </ referenceRange> </observation> </component> </ organizer> </entry> <entry> <organizer moodCode="EVN " classCode="BATTERY"> <templateId root=" 2.16.840.1.374899.10.20.22.4.1" /> <id nullFlavor="NA&quot ; /> <codecodeSystem="local" code="GLUMON" displayName="GLUCOSE (POC)" /> <statusCode code="completed& quot; /> <component> <observation moodCode="EVN& quot; classCode="OBS"> <templateId root=" 2.16.840.1.572791.10.20.22.4.2" /> <id nullFlavor="NA& quot; /> <code codeSystem="local" code="GLUMON& quot; displayName="GLUCOSE (POC)" /> <statusCode code=& quot;completed" /> <effectiveTime value="324379889285& quot; /> <value unit="mg/dL" xsi:type="PQ" value="103" /> <interpretationCode codeSystem=" local" code="*" /> <referenceRange> <observationRange> <text>70-99</text> </ observationRange> </referenceRange> </observation&gt ; </component> </organizer> </entry> <entry> <organizer moodCode="EVN" classCode="BATTERY"> <templateId root="2.16.840.1.555312.10.20.22.4.1" /> < id nullFlavor="NA" /> <code codeSystem="local" code="GLUMON" displayName="GLUCOSE (POC)" /> < statusCode code="completed" /> <component> < observation moodCode="EVN" classCode="OBS"> < templateId root="2.16.840.1.505436.10.20.22.4.2" /> < id nullFlavor="NA" /> <code codeSystem="local&quot ; code="GLUMON" displayName="GLUCOSE (POC)" /> & lt;statusCode code="completed" /> <effectiveTime value= "727657737733" /> <value unit="mg/dL" xsi: type="PQ" value="105" /> <interpretationCode codeSystem="local" code="*" /> < referenceRange> <observationRange> <text>70-99< /text> </observationRange> </referenceRange> </observation> </component> </organizer> < /entry> <entry> <organizer moodCode="EVN" classCode=& quot;BATTERY"> <templateId root=" 2.16.840.1.109953.10.20.22.4.1" /> <id nullFlavor="NA&quot ; /> <code codeSystem="local" code="GLUMON" displayName="GLUCOSE (POC)" /> <statusCode code=" completed" /> <component> <observation moodCode=&quot ;EVN" classCode="OBS"> <templateId root=" 2.16.840.1.009900.10.20.22.4.2" /> <id nullFlavor="NA& quot; /> <code codeSystem="local" code="GLUMON& quot; displayName="GLUCOSE (POC)" /> <statusCode code=& quot;completed" /> <effectiveTime value="255175366481" /& gt; <value unit="mg/dL" xsi:type="PQ" value=& quot;105" /> <interpretationCode codeSystem="local&quot ; code="*" /> <referenceRange> < observationRange> <text>70-99</text> < /observationRange> </referenceRange> </observation& gt; </component> </organizer> </entry> <entry&gt ; <organizer moodCode="EVN" classCode="BATTERY">&lt ;templateId root="2.16.840.1.105999.10.20.22.4.1" /> <id nullFlavor="NA" /> <code codeSystem="local" code= "METAB" displayName="METABOLIC PANEL, BASIC" /> < statusCode code="completed" /> <component> < observation moodCode="EVN" classCode="OBS"> < templateId root="2.16.840.1.728308.10.20.22.4.2" /> < id nullFlavor="NA" /> <code codeSystem="local&quot ; code="K" displayName="POTASSIUM" /> < statusCode code="completed" /> <effectiveTime value=& quot;495645901217" /> <value unit="mmol/L" xsi: type="PQ" value="4.3" /> <referenceRange> <observationRange> <text>3.5-5.3</text> </observationRange> </referenceRange> </ observation> </component> <component> < observation moodCode="EVN" classCode="OBS"> < templateId root="2.16.840.1.335802.10.20.22.4.2" /> < id nullFlavor="NA" /> <code codeSystem="local&quot ; code="eGFR" displayName="EST GFR (MDRD)" /> < statusCode code="completed" /> <effectiveTime value=& quot;769678727417" /> <value unit="mL/min" xsi: type="PQ" value="> 60" /> < referenceRange> <observationRange> <text> > 59</text> </observationRange> </ referenceRange> </observation> </component> < component> <observation moodCode="EVN" classCode=" OBS"> <templateId root="2.16.840.1.343950.10.20.22.4.2& quot; /> <id nullFlavor="NA" /> <code codeSystem="local" code="GAP" displayName="ANION GAP& quot; /> <statusCode code="completed" /> & lt;effectiveTime value="273601954293" /> <value unit=& quot;mmol/L" xsi:type="PQ" value="8" /> < referenceRange> <observationRange> <text> 5-15</text> </observationRange> </ referenceRange> </observation> </component> < component> <observation moodCode="EVN" classCode=" OBS"> <templateId root="2.16.840.1.849465.10.20.22.4.2& quot; /> <id nullFlavor="NA" /> <code codeSystem="local" code="GLU" displayName="GLUCOSE&quot ; /> <statusCode code="completed" /> < effectiveTime value="634219324215" /> <value unit=&quot ;mg/dL" xsi:type="PQ" value="104" /> < interpretationCode codeSystem="local" code="*" /> <referenceRange> <observationRange> <text>70- 99</text> </observationRange> </ referenceRange> </observation> </component> < component> <observation moodCode="EVN" classCode=" OBS"> <templateId root="2.16.840.1.629826.10.20.22.4.2& quot; /> <id nullFlavor="NA" /> <code codeSystem="local" code="CA" displayName="CALCIUM&quot ; /> <statusCode code="completed" /> < effectiveTime value="620406545949" /> <value unit=&quot ;mg/dL" xsi:type="PQ" value="7.5" /> < interpretationCode codeSystem="local" code="*" /> <referenceRange> <observationRange> < text>8.5-10.1</text> </observationRange> < /referenceRange> </observation> </component> < component> <observation moodCode="EVN" classCode=" OBS"> <templateId root="2.16.840.1.446530.10.20.22.4.2& quot; /> <id nullFlavor="NA" /> <code codeSystem="local" code="BUN" displayName="BLOOD UREA NITROGEN" /> <statusCode code="completed" /> & lt;effectiveTime value="481111941934" /> <value unit=& quot;mg/dL" xsi:type="PQ" value="15" /> &lt ;referenceRange> <observationRange> <text&gt ;7-20</text> </observationRange> </ referenceRange> </observation> </component> < component> <observation moodCode="EVN" classCode=" OBS"> <templateId root="[id number]& quot; /> <id nullFlavor="NA" /> <code codeSystem="local" code="CREAT" displayName="CREATININE " /> <statusCode code="completed" /> & lt;effectiveTime value="[id number]" /> <value unit=& quot;mg/dL" xsi:type="PQ" value="0.7" /> & lt;interpretationCode codeSystem="local" code="*" /> <referenceRange> <observationRange> &lt ;text>0.8-1.3</text> </observationRange> < /referenceRange> </observation> </component> &lt ;component> <observation moodCode="EVN" classCode=" OBS"> <templateId root="2.16.840.1.783432.10.20.22.4.2& quot; /> <id nullFlavor="NA" /> <code codeSystem="local" code="NA" displayName="SODIUM" /> <statusCode code="completed" /> < effectiveTime value="792827150802" /> <value unit=&quot ;mmol/L" xsi:type="PQ" value="133" /> < interpretationCode codeSystem="local" code="*" /> <referenceRange> <observationRange> <text& gt;135-148</text> </observationRange> </ referenceRange> </observation> </component> < component> <observation moodCode="EVN" classCode=" OBS"> <templateId root="2.16.840.1.326382.10.20.22.4.2& quot; /> <id nullFlavor="NA" /> <code codeSystem="local" code="CL" displayName="CHLORIDE&quot ; /> <statusCode code="completed" /> < effectiveTime value="684013126378" /> <value unit=&quot ;mmol/L" xsi:type="PQ" value="102"/> < referenceRange> <observationRange> <text> 98-110</text> </observationRange> </ referenceRange> </observation> </component> < component> <observation moodCode="EVN" classCode=" OBS"> <templateId root="2.16.840.1.473898.10.20.22.4.2& quot; /> <id nullFlavor="NA" /> <code codeSystem="local" code="CO2" displayName="CARBON DIOXIDE" /> <statusCode code="completed" /> <effectiveTime value="588079611328" /> <value unit= "mmol/L" xsi:type="PQ" value="23" /> & lt;referenceRange> <observationRange> <text& gt;21-32</text> </observationRange> </ referenceRange> </observation> </component> </ organizer> </entry> <entry> <organizer moodCode="EVN " classCode="BATTERY"> <templateId root=" 2.16.840.1.232602.10.20.22.4.1" /> <id nullFlavor="NA&quot ; /> <code codeSystem="local" code="CBC" displayName="CBC" /> <statusCode code="completed&quot ; /> <component> <observation moodCode="EVN" classCode="OBS"> <templateId root=" 2.16.840.1.478767.10.20.22.4.2" /><id nullFlavor="NA" /&gt ; <code codeSystem="local" code="MCH" displayName="MEAN CELL HGB" /> <statusCode code=" completed"/> <effectiveTime value="745934017203" / > <value unit="pg" xsi:type="PQ" value=" 34.4" /> <interpretationCode codeSystem="local" code="*" /> <referenceRange> < observationRange> <text>27.0-33.0</text> </observationRange> </referenceRange> </observation& gt; </component> <component> <observation moodCode="EVN" classCode="OBS"> <templateId root="2.16.840.1.793358.10.20.22.4.2" /> <id nullFlavor ="NA"/> <code codeSystem="local" code=" [facility]" displayName="MEAN CELL HGB CONCENTRATION" /> & lt;statusCode code="completed" /> <effectiveTime value= "826208567598" /> <value unit="g/dl" xsi:type ="PQ" value="35.0" /> <referenceRange> <observationRange> <text>32.0-36.0</text&gt ; </observationRange> </referenceRange> </ observation> </component> <component> < observation moodCode="EVN" classCode="OBS"> < templateId root="2.16.840.1.203800.10.20.22.4.2" /> < id nullFlavor="NA" /> <code codeSystem="local&quot ; code="MCV" displayName="MEAN CELLVOLUME" /> & lt;statusCode code="completed" /> <effectiveTime value= "176645222752" /> <value unit="fl" xsi:type=& quot;PQ" value="98.2" /> <referenceRange> <observationRange> <text>80.0-100.0</text> </observationRange> </referenceRange> </ observation> </component> <component> < observation moodCode="EVN" classCode="OBS"> < templateId root="2.16.840.1.939059.10..22.4.2" /> < id nullFlavor="NA" /><code codeSystem="local" code=& quot;RBC" displayName="RED BLOOD CELL" /> < statusCode code="completed" /> <effectiveTime value=& quot;588616596692" /> <value unit="m/cumm" xsi: type="PQ" value="2.58" /> < interpretationCode codeSystem="local" code="*" /> <referenceRange> <observationRange> < text>4.00-6.00</text> </observationRange> &lt ;/referenceRange> </observation> </component> & lt;component> <observation moodCode="EVN" classCode=&quot ;OBS"> <templateId root="2.16.840.1.746951.10.20.22.4.2 " /> <id nullFlavor="NA" /> <code codeSystem="local" code="RDW" displayName="RED CELL DISTRIBUTION WIDTH" /> <statusCode code="completed&quot ; /> <effectiveTime value="199947790937" /> <value unit="%" xsi:type="PQ" value="13.6& quot;/> <referenceRange> <observationRange> <text>11.0-15.6</text> </observationRange > </referenceRange> </observation> </ component> <component> <observation moodCode="EVN& quot; classCode="OBS"> <templateId root=" 2.16.840.1.936163.10..22.4.2" /> <id nullFlavor="NA& quot; /> <code codeSystem="local" code="WBC" displayName="WHITE BLOOD CELL" /> <statusCode code=& quot;completed" /> <effectiveTime value="503130466529& quot; /> <value unit="k/cumm" xsi:type="PQ" value="6.5" /> <referenceRange> < observationRange> <text>5.0-10.0</text> & lt;/observationRange> </referenceRange> </ observation> </component> <component> < observation moodCode="EVN" classCode="OBS"> < templateId root="2.16.840.1.035931.10..22.4.2"/> <id nullFlavor="NA" /> <code codeSystem="local" code="HGBT" displayName="HEMOGLOBIN" /> < statusCode code="completed" /> <effectiveTime value=& quot;390171692226" /> <value unit="gm/dL" xsi:type ="PQ" value="8.9" /> <interpretationCode codeSystem="local" code="*" /> < referenceRange> <observationRange> <text>14.0-18.0 </text> </observationRange> </referenceRange& gt; </observation> </component> <component> <observation moodCode="EVN" classCode="OBS"> &lt ;templateId root="2.16.840.1.364523.10.20.22.4.2" /> < id nullFlavor="NA" /> <code codeSystem="local&quot ; code="HCTT" displayName="HEMATOCRIT" /> < statusCode code="completed" /> <effectiveTime value=& quot;113701954972" /> <value unit="%" xsi: type="PQ" value="25.3" /> < interpretationCode codeSystem="local" code="*" /> <referenceRange> <observationRange> < text>40.0-54.0</text> </observationRange> &lt ;/referenceRange> </observation> </component> & lt;component> <observation moodCode="EVN" classCode=&quot ;OBS"> <templateId root="216.840.1.762740.10.20.22.4.2 " /> <id nullFlavor="NA" /> <code codeSystem="local" code="PLT" displayName="PLATELET COUNT" /> <statusCode code="completed" /> <effectiveTime value="312019942891" /> <value unit="k/cumm" xsi:type="PQ" value="60" /> <interpretationCode codeSystem="local" code="*" /&gt ; <referenceRange> <observationRange> <text>150-450</text> </observationRange> </referenceRange> </observation> </component> </organizer> </entry> <entry> <organizer moodCode= "EVN" classCode="BATTERY"> <templateId root=&quot ;2.16.840.1.266052.10.20.22.4.1" /> <id nullFlavor="NA&quot ; /> <code codeSystem="local" code="METAB" displayName="METABOLIC PANEL, BASIC" /> <statusCode code=& quot;completed" /> <component> <observation moodCode="EVN" classCode="OBS"> <templateId root="2.16.840.1.285422.10..22.4.2" /> <id nullFlavor ="NA" /> <code codeSystem="local" code=" K" displayName="POTASSIUM" /> <statusCode code=& quot;completed" /> <effectiveTime value="940986523416& quot; /> <value unit="mmol/L" xsi:type="PQ" value="4.3" /> <referenceRange> < observationRange> <text>3.5-5.3</text> & lt;/observationRange> </referenceRange> </ observation> </component> <component> < observation moodCode="EVN" classCode="OBS"> < templateId root="2.16.840.1.650157.10.20.22.4.2"/> <id nullFlavor="NA" /> <code codeSystem="local" code="eGFR" displayName="EST GFR (MDRD)" /> < statusCode code="completed" /> <effectiveTime value=& quot;541407620659" /> <value unit="mL/min" xsi: type="PQ" value="> 60" /> < referenceRange> <observationRange> <text> > 59</text> </observationRange> </ referenceRange> </observation> </component> < component> <observation moodCode="EVN" classCode=" OBS"> <templateId root="2.16.840.1.835751.10.20.22.4.2& quot; /> <id nullFlavor="NA" /> <code codeSystem="local" code="GAP" displayName="ANION GAP& quot; /> <statusCode code="completed" /> & lt;effectiveTime value="144414448910" /> <value unit=& quot;mmol/L" xsi:type="PQ" value="8" /> &lt ;referenceRange> <observationRange> <text&gt ;5-15</text> </observationRange> </ referenceRange> </observation> </component> < component> <observation moodCode="EVN" classCode=" OBS"> <templateId root="2.16.840.1.292395.10..22.4.2& quot; /> <id nullFlavor="NA" /> <code codeSystem="local" code="GLU" displayName="GLUCOSE&quot ; /> <statusCode code="completed" /> < effectiveTime value="500240050435" /> <value unit=&quot ;mg/dL" xsi:type="PQ" value="104" /> < interpretationCode codeSystem="local" code="*" /> <referenceRange> <observationRange> <text&gt ;70-99</text> </observationRange> </ referenceRange> </observation> </component> < component> <observation moodCode="EVN" classCode=" OBS"> <templateId root="2.16.840.1.184618.10.20.22.4.2& quot; /> <id nullFlavor="NA" /> <code codeSystem="local" code="CA" displayName="CALCIUM&quot ; /> <statusCode code="completed" /> < effectiveTime value="842514798052" /> <value unit=&quot ;mg/dL" xsi:type="PQ" value="7.5" /> < interpretationCode codeSystem="local" code="*" /> <referenceRange> <observationRange> < text>8.5-10.1</text> </observationRange> </ referenceRange> </observation> </component> < component> <observation moodCode="EVN" classCode=" OBS"> <templateId root="2.16.840.1.479465.10.20.22.4.2& quot; /> <id nullFlavor="NA" /> <code codeSystem="local" code="BUN" displayName="BLOOD UREA NITROGEN" /> <statusCode code="completed" /> <effectiveTime value="009540622118" /> < value unit="mg/dL" xsi:type="PQ" value="15" /> <referenceRange> <observationRange> <text>7-20</text> </observationRange> & lt;/referenceRange> </observation> </component> <component> <observation moodCode="EVN" classCode=& quot;OBS"> <templateId root=" 2.16.840.1.433117.10..22.4.2" /> <id nullFlavor="NA& quot; /> <code codeSystem="local" code="CREAT&quot ; displayName="CREATININE" /> <statusCode code=" completed" /> <effectiveTime value="920659301295" /&gt ; <value unit="mg/dL" xsi:type="PQ" value=" 0.7" /> <interpretationCode codeSystem="local" code="*" /> <referenceRange> < observationRange> <text>0.8-1.3</text> & lt;/observationRange> </referenceRange> </ observation> </component> <component> <observation moodCode="EVN" classCode="OBS"> <templateId root="2.16.840.1.157360.10.20.22.4.2" /> <id nullFlavor ="NA" /> <code codeSystem="local" code="NA& quot; displayName="SODIUM" /> <statusCode code=" completed" /> <effectiveTime value="609243818559" /> <value unit="mmol/L" xsi:type="PQ" value=& quot;133" /> <interpretationCode codeSystem="local&quot ; code="*" /> <referenceRange> < observationRange> <text>135-148</text> & lt;/observationRange> </referenceRange> </ observation> </component> <component> < observation moodCode="EVN" classCode="OBS"> < templateId root="2.16.840.1.262419.10.20.22.4.2" /> < id nullFlavor="NA" /> <code codeSystem="local&quot ; code="CL" displayName="CHLORIDE" /> < statusCode code="completed" /> <effectiveTime value=& quot;264959707270" /> <valueunit="mmol/L" xsi:type ="PQ" value="102" /> <referenceRange> <observationRange> <text>98-110</text> </observationRange> </referenceRange> < /observation> </component> <component> < observation moodCode="EVN" classCode="OBS"> < templateId root="2.16.840.1.308437.10.20.22.4.2" /> < id nullFlavor="NA" /> <code codeSystem="local&quot ; code="CO2"displayName="CARBON DIOXIDE" /> < statusCode code="completed" /> <effectiveTime value=& quot;860376116752" /> <value unit="mmol/L" xsi: type="PQ" value="23" /> <referenceRange>& lt;observationRange> <text>21-32</text> & lt;/observationRange> </referenceRange> </ observation> </component> </organizer> </entry> & lt;entry> <organizer moodCode="EVN" classCode="BATTERY& quot;> <templateId root="2.16.840.1.143088.10.20.22.4.1" /& gt; <id nullFlavor="NA" /> <code codeSystem=" local" code="CBC" displayName="CBC" /> < statusCode code="completed" /> <component> < observation moodCode="EVN" classCode="OBS"> < templateId root="2.16.840.1.566937.10.20.22.4.2" /> < id nullFlavor="NA" /> <code codeSystem="local&quot ; code="MCH" displayName="MEAN CELL HGB" /> < statusCode code="completed" /> <effectiveTime value=& quot;374899831095" /> <value unit="pg" xsi:type=& quot;PQ" value="34.4" /> <interpretationCode codeSystem="local" code="*" /> < referenceRange> <observationRange> <text> 27.0-33.0</text> </observationRange> </ referenceRange> </observation> </component> < component> <observation moodCode="EVN" classCode=" OBS"> <templateId root="2.16.840.1.556509.10.20.22.4.2& quot; /> <id nullFlavor="NA" /> <code codeSystem="local" code="[facility]C" displayName="MEAN CELL HGB CONCENTRATION" /> <statusCode code="completed&quot ; /> <effectiveTime value="482575517872" /> <value unit="g/dl" xsi:type="PQ" value="35.0&quot ; /> <referenceRange> <observationRange> <text>32.0-36.0</text> </observationRange&gt ; </referenceRange> </observation> </component& gt; <component> <observation moodCode="EVN" classCode="OBS"> <templateId root=" 2.16.840.1.305272.10.20.22.4.2" /> <id nullFlavor="NA& quot; /> <code codeSystem="local" code="MCV" displayName="MEAN CELL VOLUME" /> <statusCode code=& quot;completed" /> <effectiveTime value="799449946219& quot; /> <value unit="fl" xsi:type="PQ" value ="98.2" /> <referenceRange> < observationRange> <text>80.0-100.0</text> </observationRange> </referenceRange> </ observation> </component> <component> < observation moodCode="EVN" classCode="OBS"> < templateId root="2.16.840.1.679767.10.20.22.4.2" /> < id nullFlavor="NA" /> <code codeSystem="local&quot ; code="RBC" displayName="RED BLOOD CELL" /> &lt ;statusCode code="completed" /> <effectiveTime value=& quot;928099891171" /> <value unit="m/cumm" xsi:type=" PQ" value="2.58" /> <interpretationCode codeSystem ="local" code="*" /> <referenceRange> <observationRange> <text>4.00-6.00</text&gt ; </observationRange> </referenceRange> & lt;/observation> </component> <component> < observation moodCode="EVN" classCode="OBS"> < templateId root="2.16.840.1.695109.10.20.22.4.2" /> < id nullFlavor="NA" /> <code codeSystem="local&quot ; code="RDW"displayName="RED CELL DISTRIBUTION WIDTH" /> <statusCode code="completed" /> < effectiveTime value="737684941300" /> <value unit=&quot ;%" xsi:type="PQ" value="13.6" /> & lt;referenceRange> <observationRange> <text& gt;11.0-15.6</text> </observationRange> </referenceRange > </observation> </component> <component> <observation moodCode="EVN" classCode="OBS"> <templateId root="2.16.840.1.009309.10.20.22.4.2" /> <id nullFlavor="NA" /> <code codeSystem=& quot;local" code="WBC" displayName="WHITE BLOOD CELL" / > <statusCode code="completed"/> < effectiveTime value="662195946727" /> <value unit=&quot ;k/cumm" xsi:type="PQ" value="6.5" /> < referenceRange> <observationRange> <text>5.0- 10.0</text> </observationRange> </ referenceRange> </observation> </component> < component> <observation moodCode="EVN" classCode=" OBS"> <templateId root="2.16.840.1.103602.10.20.22.4.2& quot; /> <id nullFlavor="NA" /> <code codeSystem="local" code="HGBT" displayName="HEMOGLOBIN& quot; /> <statusCode code="completed" /> & lt;effectiveTime value="523925048597" /> <value unit=& quot;gm/dL" xsi:type="PQ" value="8.9" /> & lt;interpretationCode codeSystem="local" code="*" /> <referenceRange> <observationRange> < text>14.0-18.0</text> </observationRange> &lt ;/referenceRange> </observation> </component> & lt;component> <observation moodCode="EVN" classCode=&quot ;OBS"> <templateId root="2.16.840.1.089132.10.20.22.4.2 " /> <id nullFlavor="NA" /> <code codeSystem="local" code="HCTT" displayName="HEMATOCRIT& quot; /> <statusCode code="completed" /> < effectiveTime value="554935064238" /> <value unit=&quot ;%" xsi:type="PQ" value="25.3" /> & lt;interpretationCode codeSystem="local" code="*" /> <referenceRange> <observationRange> & lt;text>40.0-54.0</text> </observationRange> </referenceRange> </observation> </component> <component> <observation moodCode="EVN" classCode=& quot;OBS"> <templateId root=" 2.16.840.1.266615.10.20.22.4.2" /> <id nullFlavor="NA& quot; /> <code codeSystem="local" code="PLT" displayName="PLATELET COUNT" /> <statusCode code=" completed" /> <effectiveTime value="889190571508" /> <value unit="k/cumm" xsi:type="PQ" value="60 " /> <interpretationCode codeSystem="local" code=& quot;*" /> <referenceRange> < observationRange> <text>150-450</text> & lt;/observationRange> </referenceRange> </ observation> </component> </organizer> </entry> & lt;entry> <organizer moodCode="EVN"classCode="BATTERY& quot;> <templateId root="2.16.840.1.667507.10.20.22.4.1" /& gt; <id nullFlavor="NA" /> <code codeSystem=" local" code="GLUMON" displayName="GLUCOSE (POC)" /> <statusCode code="completed" /> <component> <observation moodCode="EVN" classCode="OBS"> <templateId root="2.16.840.1.089859.10.20.22.4.2" /> <id nullFlavor="NA" /> <code codeSystem=" local" code="GLUMON" displayName="GLUCOSE (POC)" /> <statusCode code="completed" /> < effectiveTime value="260500870081" /> <value unit=&quot ;mg/dL" xsi:type="PQ" value="104" /> < interpretationCode codeSystem="local" code="*" /> <referenceRange> <observationRange> < text>70-99</text> </observationRange> </ referenceRange> </observation> </component> </ organizer> </entry> <entry> <organizer moodCode="EVN " classCode="BATTERY"> <templateId root=" 2.16.840.1.456905.10.20.22.4.1" /> <id nullFlavor="NA&quot ; /> <code codeSystem="local" code="GLUMON" displayName="GLUCOSE (POC)" /> <statusCode code=" completed" /> <component> <observation moodCode=& quot;EVN" classCode="OBS"> <templateId root=" 2.16.840.1.962948.10.20.22.4.2" /> <id nullFlavor="NA& quot; /> <code codeSystem="local" code="GLUMON& quot; displayName="GLUCOSE (POC)" /> <statusCode code=& quot;completed" /> <effectiveTime value="797666596379& quot; /> <value unit="mg/dL" xsi:type="PQ" value="104" /> <interpretationCode codeSystem=" local"code="*" /> <referenceRange> & lt;observationRange> <text>70-99</text> </ observationRange> </referenceRange> </observation&gt ; </component> </organizer> </entry> <entry> <organizer moodCode="EVN" classCode="BATTERY"> <templateId root="2.16.840.1.783375.10.20.22.4.1" /> < id nullFlavor="NA" /> <code codeSystem="local" code="LIVER" displayName="HEPATIC FUNCTION PANEL" /> <statusCode code="completed" /> <component> < observation moodCode="EVN" classCode="OBS"> < templateId root="2.16.840.1.889120.10.20.22.4.2" /> < id nullFlavor="NA" /> <code codeSystem="local" code="BILUC" displayName="BILI UNCONJUGATED" /> <statusCode code="completed" /> <effectiveTime value ="389593069869" /> <value unit="mg/dL" xsi: type="PQ" value="1.1" /> <interpretationCode codeSystem="local" code="*" /> < referenceRange> <observationRange> <text> 0.0-0.7</text> </observationRange> </ referenceRange></observation> </component> < component> <observation moodCode="EVN" classCode=" OBS"> <templateId root="2.16.840.1.603479.10.20.22.4.2& quot; /> <id nullFlavor="NA" /> <code codeSystem="local" code="AST" displayName="AST/SGOT& quot; /> <statusCode code="completed" /> & lt;effectiveTime value="269487434395" /> <value unit=" Units/L" xsi:type="PQ" value="31" /> < referenceRange> <observationRange> <text> 10-37</text> </observationRange> </ referenceRange> </observation> </component> < component> <observation moodCode="EVN" classCode=" OBS"> <templateId root="2.16.840.1.610340.10.20.22.4.2& quot; /> <id nullFlavor="NA" /> <code codeSystem="local" code="ALT" displayName="ALT/SGPT& quot; /> <statusCode code="completed" /> & lt;effectiveTime value="834217742803" /> <value unit=& quot;Units/L" xsi:type="PQ" value="28" /> & lt;referenceRange> <observationRange> <text>& amp;lt; 66</text> </observationRange> </ referenceRange> </observation> </component> < component> <observation moodCode="EVN" classCode=" OBS"> <templateId root="2.16.840.1.073834.10.20.22.4.2& quot; /> <id nullFlavor="NA" /> <code codeSystem="local" code="TP" displayName="TOTAL PROTEIN " /> <statusCode code="completed" /> < effectiveTime value="822383687484" /> <value unit=&quot ;gm/dL" xsi:type="PQ" value="5.3" /> < interpretationCode codeSystem="local" code="*" /> <referenceRange> <observationRange> < text>6.4-8.2</text> </observationRange> </ referenceRange> </observation> </component> < component> <observation moodCode="EVN" classCode=" OBS"> <templateId root="2.16.840.1.650758.10.20.22.4.2& quot; /> <id nullFlavor="NA" /> <code codeSystem="local" code="ALB" displayName="ALBUMIN&quot ; /> <statusCode code="completed" /> < effectiveTime value="177064958660" /> <value unit=&quot ;gm/dL" xsi:type="PQ" value="2.7" /> < interpretationCode codeSystem="local" code="*" /> & lt;referenceRange> <observationRange> <text& gt;3.4-5.0</text> </observationRange> </ referenceRange> </observation> </component> < component> <observation moodCode="EVN" classCode=" OBS"> <templateId root="2.16.840.1.615265.10.20.22.4.2& quot; /> <id nullFlavor="NA" /> <code codeSystem="local" code="BILTOT" displayName="BILI TOTAL" /> <statusCode code="completed" /> <effectiveTime value="378036239706" /> <value unit="mg/dL" xsi:type="PQ" value="1.5" /> <interpretationCode codeSystem="local" code="*" /&gt ; <referenceRange> <observationRange> & lt;text>0.0-1.0</text> </observationRange> & lt;/referenceRange> </observation> </component> &lt ;component> <observation moodCode="EVN" classCode=" OBS"> <templateId root="2.16.840.1.853074.10.20.22.4.2& quot; /> <id nullFlavor="NA" /> <code codeSystem="local" code="ALKP" displayName="ALKALINE PHOSPHATASE TOTAL" /> <statusCode code="completed&quot ; /> <effectiveTime value="954986071786" /> <value unit="Units/L" xsi:type="PQ" value="72&quot ; /> <referenceRange> <observationRange> <text>50-136</text> </observationRange> </referenceRange> </observation> </component> <component> <observation moodCode="EVN" classCode=& quot;OBS"> <templateId root="2.16.840.1.793000.10.20.22.4.2& quot; /> <id nullFlavor="NA" /> <code codeSystem="local" code="BILC" displayName="BILI CONJUGATED" /> <statusCode code="completed" /> <effectiveTime value="926886886131" /> < value unit="mg/dL" xsi:type="PQ" value="0.4" /&gt ; <interpretationCode codeSystem="local" code="*&quot ; /> <referenceRange> <observationRange> <text>0.0-0.3</text> </observationRange> </referenceRange> </observation> </component& gt; </organizer> </entry> <entry> <organizer moodCode="EVN" classCode="BATTERY"> <templateId root="2.16.840.1.646399.10.20.22.4.1" /> <id nullFlavor=& quot;NA" /> <code codeSystem="local" code="FETIBC " displayName="IRON W/ BINDING CAPACITY" /> < statusCode code="completed" /> <component> < observation moodCode="EVN" classCode="OBS"> < templateId root="2.16.840.1.364096.10.20.22.4.2" /> < id nullFlavor="NA" /> <code codeSystem="local&quot ; code="FESAT" displayName="IRON SATURATION" /> <statusCode code="completed" /> <effectiveTime value ="738683898967" /> <value unit="%SAT&quot ; xsi:type="PQ" value="12" /> <referenceRange > <observationRange> <text>11-46</text > </observationRange> </referenceRange> </observation> </component> <component> < observation moodCode="EVN" classCode="OBS"> < templateId root="2.16.840.1.435244.10.20.22.4.2" /> < id nullFlavor="NA" /> <code codeSystem="local" code="TIBC" displayName="IRON BINDING CAPACITY, TOTAL" /&gt ; <statusCode code="completed" /> < effectiveTime value="312425313201" /> <value unit=&quot ;mcg/dL" xsi:type="PQ" value="228" /> < interpretationCode codeSystem="local" code="*" /> <referenceRange> <observationRange> <text>250- 450</text> </observationRange> </ referenceRange> </observation> </component> < component> <observation moodCode="EVN" classCode=" OBS"> <templateId root="2.16.840.1.862611.10.20.22.4.2& quot; /> <id nullFlavor="NA" /> <code codeSystem="local" code="IRON" displayName="IRON" /> <statusCode code="completed" /> < effectiveTime value="386400734001" /> <value unit=&quot ;mcg/dL" xsi:type="PQ" value="28" /> < interpretationCode codeSystem="local" code="*" /> <referenceRange> <observationRange> < text>35-150</text> </observationRange> </ referenceRange> </observation> </component> </ organizer> </entry> <entry> <organizer moodCode="EVN " classCode="BATTERY"> <templateId root=" [id number]" /> <id nullFlavor="NA&quot ; /> <code codeSystem="local" code="TRANSF" displayName="TRANSFERRIN" /> <statusCode code=" completed" /> <component> <observation moodCode=& quot;EVN" classCode="OBS"> <templateId root=" 2.16.840.1.110458.10.20.22.4.2" /> <id nullFlavor="NA&quot ; /> <code codeSystem="local" code="TRANSF" displayName="TRANSFERRIN" /> <statusCode code=" completed" /> <effectiveTime value="108384129717" /> <value unit="mg/dL" xsi:type="PQ" value=& quot;167" /> <interpretationCode codeSystem="local&quot ; code="*" /> <referenceRange> < observationRange> <text>200-360</text> & lt;/observationRange> </referenceRange> </ observation> </component> </organizer> </entry> & lt;entry> <organizer moodCode="EVN" classCode="BATTERY& quot;> <templateId root="2.16.840.1.426367.10.20.22.4.1" /& gt; <id nullFlavor="NA" /> <code codeSystem=" local" code="DEVENDRA" displayName="FERRITIN" /> &lt ;statusCode code="completed" /> <component> < observation moodCode="EVN" classCode="OBS"> < templateId root="2.16.840.1.266533.10.20.22.4.2" /> < id nullFlavor="NA" /> <code codeSystem="local&quot ; code="DEVENDRA" displayName="FERRITIN" /> < statusCode code="completed" /> <effectiveTime value=& quot;288213451775" /> <value unit="ng/mL" xsi:type ="PQ" value="156" /> <referenceRange> <observationRange> <text>26-388</text> </observationRange> </referenceRange> </ observation> </component> </organizer> </entry> & lt;entry> <organizer moodCode="EVN" classCode="BATTERY& quot;> <templateId root="2.16.840.1.662471.10.20.22.4.1" /& gt; <id nullFlavor="NA" /> <code codeSystem=" local" code="PREALB" displayName="PREALBUMIN" /> <statusCode code="completed" /> <component> <observation moodCode="EVN" classCode="OBS"> <templateId root="2.16.840.1.001427.10.20.22.4.2" /> <id nullFlavor="NA" /> <code codeSystem="local" code="PREALB" displayName="PREALBUMIN" /> < statusCode code="completed" /> <effectiveTime value=& quot;899091013125" /> <value unit="mg/dL" xsi:type ="PQ" value="11" /> <interpretationCode codeSystem="local" code="*" /> <referenceRange > <observationRange> <text>20-40</text > </observationRange> </referenceRange> </observation> </component> </organizer> </ entry> <entry> <organizer moodCode="EVN" classCode=& quot;BATTERY"> <templateId root=" 2.16.840.1.589365.10.20.22.4.1" /> <id nullFlavor="NA&quot ; /> <code codeSystem="local" code="HEPAT" displayName="HEPATITIS PANEL-ACUTE" /> <statusCode code=& quot;completed" /> <component> <observation moodCode="EVN" classCode="OBS"> <templateId root="2.16.840.1.878122.10.20.22.4.2" /> <id nullFlavor ="NA" /> <code codeSystem="local" code=" HAVMAB" displayName="AB HEPATITIS A IGM" /> < statusCode code="completed" /> <effectiveTime value=& quot;210553737281" /> <value unit="" xsi:type=& quot;PQ" value="NEGATIVE" /> <referenceRange> <observationRange> <text>NEGATIVE</text& gt; </observationRange> </referenceRange> </observation> </component> <component> &lt ;observation moodCode="EVN" classCode="OBS"> &lt ;templateId root="2.16.840.1.158417.10.20.22.4.2" /> < id nullFlavor="NA" /> <code codeSystem="local&quot ; code="HBSAG" displayName="AG HEPATITIS B SURF." /> <statusCode code="completed" /> < effectiveTime value="687316824530" /> <value unit=&quot ;" xsi:type="PQ" value="NEGATIVE" /> < referenceRange> <observationRange> <text> NEGATIVE</text> </observationRange> </ referenceRange> </observation> </component> < component> <observation moodCode="EVN" classCode=" OBS"> <templateId root="2.16.840.1.897414.10..22.4.2& quot;/> <id nullFlavor="NA" /> <code codeSystem="local"code="HBCMAB" displayName="AB HEPATITIS B CORE IGM" /> <statusCode code="completed& quot; /> <effectiveTime value="007695783337" /> <value unit="" xsi:type="PQ" value="NEGATIVE&quot ; /> <referenceRange> <observationRange> <text>NEGATIVE</text> </observationRange&gt ; </referenceRange> </observation> </ component> <component> <observation moodCode="EVN& quot; classCode="OBS"> <templateId root=" 2.16.840.1.443817.10.20.22.4.2" /> <id nullFlavor="NA& quot; /> <code codeSystem="local" code="HCVAB&quot ; displayName="AB HEPATITIS C" /> <statusCode code=& quot;completed" /> <effectiveTime value="792811659218& quot; /> <value unit="" xsi:type="PQ" value=& quot;NEGATIVE" /> <referenceRange> < observationRange> <text>NEGATIVE</text> </ observationRange> </referenceRange> </observation&gt ; </component> </organizer> </entry> <entry> <organizer moodCode="EVN" classCode="BATTERY"> <templateId root="2.16.840.1.415580.10.20.22.4.1" /> < id nullFlavor="NA" /> <code codeSystem="local" code="LIVER" displayName="HEPATIC FUNCTION PANEL" /> <statusCode code="completed" /> <component> <observation moodCode="EVN" classCode="OBS"> <templateId root="2.16.840.1.709094.10.20.22.4.2" /> & lt;id nullFlavor="NA" /> <code codeSystem="local& quot; code="BILUC" displayName="BILI UNCONJUGATED" /> <statusCode code="completed" /> < effectiveTime value="841149657252" /> <value unit=&quot ;mg/dL" xsi:type="PQ" value="1.1" /> < interpretationCode codeSystem="local" code="*" /> <referenceRange> <observationRange> <text& gt;0.0-0.7</text> </observationRange> </ referenceRange> </observation> </component> < component> <observation moodCode="EVN" classCode=" OBS"> <templateId root="2.16.840.1.294957.10.20.22.4.2& quot; /> <id nullFlavor="NA" /> <code codeSystem="local" code="AST" displayName="AST/SGOT& quot; /> <statusCode code="completed" /> & lt;effectiveTime value="466241486410" /> <value unit=& quot;Units/L" xsi:type="PQ" value="31" /> & lt;referenceRange> <observationRange> <text& gt;10-37</text> </observationRange></referenceRange&gt ; </observation> </component> <component> <observation moodCode="EVN" classCode="OBS"> <templateId root="2.16.840.1.158358.10.20.22.4.2" /> <id nullFlavor="NA" /> <code codeSystem="local " code="ALT" displayName="ALT/SGPT"/> < statusCode code="completed" /> <effectiveTime value=& quot;003448280934" /> <value unit="Units/L" xsi: type="PQ" value="28" /> <referenceRange> <observationRange><text>< 66</text> </observationRange> </referenceRange> </ observation> </component> <component> < observation moodCode="EVN" classCode="OBS"> < templateId root="2.16.840.1.301102.10.20.22.4.2" /> < id nullFlavor="NA" /> <codecodeSystem="local&quot ; code="TP" displayName="TOTAL PROTEIN" /> < statusCode code="completed" /> <effectiveTime value=& quot;286567282314" /> <value unit="gm/dL" xsi:type ="PQ" value="5.3" /> <interpretationCode codeSystem="local" code="*" /> < referenceRange> <observationRange> <text> 6.4-8.2</text> </observationRange> </ referenceRange> </observation> </component> < component> <observation moodCode="EVN" classCode=" OBS"> <templateId root="2.16.840.1.760628.10.20.22.4.2& quot; /> <id nullFlavor="NA" /> <code codeSystem="local" code="ALB" displayName="ALBUMIN&quot ; /> <statusCode code="completed" /> < effectiveTime value="535012597941" /> <value unit=&quot ;gm/dL" xsi:type="PQ" value="2.7" /> < interpretationCode codeSystem="local" code="*" /> <referenceRange> <observationRange> < text>3.4-5.0</text> </observationRange> </ referenceRange> </observation> </component> < component> <observation moodCode="EVN" classCode=" OBS"> <templateId root="2..840.1.621890.10..22.4.2& quot; /> <id nullFlavor="NA" /> <code codeSystem="local" code="BILTOT" displayName="BILI TOTAL" /> <statusCode code="completed" /> <effectiveTime value="828619775087" /> <value unit="mg/dL" xsi:type="PQ" value="1.5" /> <interpretationCode codeSystem="local" code="*" /&gt ; <referenceRange> <observationRange> <text>0.0-1.0</text> </observationRange> </referenceRange> </observation> </component> <component> <observation moodCode="EVN" classCode="OBS"> <templateId root=" 2.16.840.1.611148.10.20.22.4.2" /> <id nullFlavor="NA& quot; /> <code codeSystem="local" code="ALKP&quot ; displayName="ALKALINE PHOSPHATASE TOTAL" /> < statusCode code="completed" /> <effectiveTime value=& quot;158825561899" /> <value unit="Units/L" xsi: type="PQ" value="72" /> <referenceRange> <observationRange> <text>50-136</text&gt ; </observationRange> </referenceRange> </ observation> </component> <component> < observation moodCode="EVN" classCode="OBS"> < templateId root="2.16.840.1.495108.10.20.22.4.2" /> < id nullFlavor="NA" /> <code codeSystem="local&quot ; code="BILC" displayName="BILI CONJUGATED" /> & lt;statusCode code="completed" /> <effectiveTime value= "987021300238" /> <value unit="mg/dL" xsi: type="PQ" value="0.4" /> <interpretationCode codeSystem="local" code="*" /> < referenceRange> <observationRange> <text> 0.0-0.3</text> </observationRange> </ referenceRange> </observation></component> </ organizer> </entry> <entry> <organizer moodCode="EVN " classCode="BATTERY"> <templateId root=" 2.16.840.1.783943.10.20.22.4.1" /> <id nullFlavor="NA&quot ; /> <code codeSystem="local" code="FETIBC" displayName="IRON W/ BINDING CAPACITY" /> <statusCode code= "completed" /> <component> <observation moodCode="EVN" classCode="OBS"> <templateId root="2.16.840.1.761134.10.20.22.4.2" /> <id nullFlavor ="NA" /> <code codeSystem="local" code=" FESAT" displayName="IRON SATURATION" /> < statusCodecode="completed" /> <effectiveTime value=& quot;588825718469" /> <value unit="%SAT" xsi: type="PQ" value="12" /> <referenceRange> <observationRange> <text>11-46</text> </observationRange> </referenceRange> </ observation> </component> <component> < observation moodCode="EVN" classCode="OBS"> < templateId root="2.16.840.1.183582.10.20.22.4.2" /> < id nullFlavor="NA" /> <code codeSystem="local&quot ; code="TIBC" displayName="IRON BINDING CAPACITY, TOTAL" /& gt; <statusCode code="completed" /> < effectiveTime value="843002741855" /> <value unit=" mcg/dL" xsi:type="PQ" value="228" /> < interpretationCode codeSystem="local" code="*" /> <referenceRange> <observationRange> < text>250-450</text> </observationRange> </ referenceRange> </observation> </component> < component> <observation moodCode="EVN" classCode=" OBS"> <templateId root="2.16.840.1.479799.10.20.22.4.2& quot; /> <id nullFlavor="NA" /> <code codeSystem="local" code="IRON" displayName="IRON" /> <statusCode code="completed" /> < effectiveTime value="526432044862" /> <value unit=&quot ;mcg/dL" xsi:type="PQ" value="28" /> < interpretationCode codeSystem="local" code="*" /> <referenceRange> <observationRange> < text>35-150</text> </observationRange> </ referenceRange> </observation> </component> </ organizer> </entry> <entry> <organizer moodCode="EVN " classCode="BATTERY"> <templateId root=" 2.16.840.1.474383.10.20.22.4.1" /> <id nullFlavor="NA&quot ; /> <code codeSystem="local" code="TRANSF" displayName="TRANSFERRIN" /> <statusCode code=" completed" /> <component> <observation moodCode=" EVN" classCode="OBS"> <templateId root=" 2.16.840.1.321351.10.20.22.4.2" /> <id nullFlavor="NA& quot; /> <code codeSystem="local" code="TRANSF&quot ; displayName="TRANSFERRIN" /> <statusCode code=" completed" /> <effectiveTime value="757666852859" /> <value unit="mg/dL" xsi:type="PQ" value=& quot;167" /> <interpretationCode codeSystem="local&quot ; code="*" /> <referenceRange> < observationRange> <text>200-360</text> & lt;/observationRange> </referenceRange> </ observation> </component> </organizer> </entry> & lt;entry> <organizer moodCode="EVN" classCode="BATTERY& quot;> <templateId root="2.16.840.1.884912.10.20.22.4.1" /& gt; <id nullFlavor="NA" /> <code codeSystem=" local" code="DEVENDRA" displayName="FERRITIN" /> &lt ;statusCode code="completed" /> <component> < observation moodCode="EVN" classCode="OBS"> < templateId root="2.16.840.1.034102.10..22.4.2" /> < id nullFlavor="NA" /> <code codeSystem="local&quot ; code="DEVENDRA" displayName="FERRITIN" /> < statusCode code="completed" /> <effectiveTime value=& quot;354246598566" /> <value unit="ng/mL" xsi:type="PQ " value="156" /> <referenceRange> & lt;observationRange> <text>26-388</text> < /observationRange> </referenceRange> </observation& gt; </component> </organizer> </entry> <entry&gt ; <organizer moodCode="EVN" classCode="BATTERY"> <templateId root="2.16.840.1.920760.10..22.4.1" /> & lt;id nullFlavor="NA" /> <code codeSystem="local&quot ; code="PREALB" displayName="PREALBUMIN" /> < statusCode code="completed" /> <component> < observation moodCode="EVN" classCode="OBS"> < templateId root="2.16.840.1.346881.10.20.22.4.2" /> <id nullFlavor="NA" /> <code codeSystem="local" code="PREALB" displayName="PREALBUMIN" /> < statusCode code="completed" /> <effectiveTime value=& quot;108931867700" /> <value unit="mg/dL" xsi:type ="PQ" value="11" /> <interpretationCode codeSystem="local" code="*" /> < referenceRange> <observationRange> <text> 20-40</text> </observationRange> </ referenceRange> </observation> </component> </ organizer> </entry> <entry> <organizer moodCode="EVN " classCode="BATTERY"> <templateId root=" 2.16.840.1.171599.10.20.22.4.1" /> <id nullFlavor="NA&quot ; /> <code codeSystem="local" code="HEPAT" displayName="HEPATITIS PANEL-ACUTE" /> <statusCode code=& quot;completed" /> <component> <observation moodCode ="EVN" classCode="OBS"> <templateId root=&quot ;2.16.840.1.533386.10.20.22.4.2" /> <id nullFlavor="NA& quot; /> <code codeSystem="local" code="HAVMAB& quot; displayName="AB HEPATITIS A IGM" /> <statusCode code="completed" /> <effectiveTime value=" 575410473345" /> <value unit=""xsi:type="PQ& quot; value="NEGATIVE" /> <referenceRange> <observationRange> <text>NEGATIVE</text> </observationRange> </referenceRange> </ observation> </component> <component> < observation moodCode="EVN" classCode="OBS">< templateId root="2.16.840.1.188045.10.20.22.4.2" /> < id nullFlavor="NA" /> <code codeSystem="local&quot ; code="HBSAG" displayName="AG HEPATITIS B SURF." /> <statusCode code="completed" /> <effectiveTime value=& quot;017136726891" /> <value unit="" xsi:type=& quot;PQ" value="NEGATIVE" /> <referenceRange> <observationRange> <text>NEGATIVE</text& gt; </observationRange> </referenceRange> & lt;/observation> </component> <component> < observation moodCode="EVN" classCode="OBS"> < templateId root="16.840.1.605409.10.20.22.4.2" /> < id nullFlavor="NA" /> <code codeSystem="local&quot ; code="HBCMAB" displayName="AB HEPATITIS B CORE IGM" /> <statusCode code="completed" /> < effectiveTime value="296148137762" /> <value unit=&quot ;" xsi:type="PQ" value="NEGATIVE" /> < referenceRange> <observationRange> <text> NEGATIVE</text> </observationRange> </ referenceRange> </observation> </component> < component> <observation moodCode="EVN" classCode=" OBS"> <templateId root="2.16.840.1.848566.10.20.22.4.2& quot; /> <id nullFlavor="NA" /> <code codeSystem="local" code="HCVAB" displayName="AB HEPATITIS C" /> <statusCode code="completed" /&gt ; <effectiveTime value="111718488309" /> < value unit="" xsi:type="PQ" value="NEGATIVE" /&gt ; <referenceRange> <observationRange> <text>NEGATIVE</text> </observationRange> </referenceRange> </observation> </component> & lt;/organizer> </entry> <entry> <organizer moodCode=&quot ;EVN" classCode="BATTERY"> <templateId root=" 2.16.840.1.475645.10.20.22.4.1" /> <id nullFlavor="NA&quot ; /> <code codeSystem="local" code="GLUMON" displayName="GLUCOSE (POC)" /> <statusCode code=" completed" /> <component> <observation moodCode="EVN " classCode="OBS"> <templateId root=" 2.16.840.1.908582.10.20.22.4.2" /> <id nullFlavor="NA& quot; /> <code codeSystem="local" code="GLUMON" displayName="GLUCOSE (POC)" /> <statusCode code=" completed" /> <effectiveTime value="553371772163" /> <value unit="mg/dL" xsi:type="PQ" value=& quot;103" /> <interpretationCode codeSystem="local&quot ; code="*" /> <referenceRange> < observationRange> <text>70-99</text> < /observationRange> </referenceRange> </observation& gt; </component> </organizer> </entry> <entry&gt ; <organizer moodCode="EVN" classCode="BATTERY"> <templateId root="2.16.840.1.686316.10.20.22.4.1" /> & lt;id nullFlavor="NA" /> <code codeSystem="local&quot ; code="GLUMON" displayName="GLUCOSE (POC)" />< statusCode code="completed" /> <component> < observation moodCode="EVN" classCode="OBS"> < templateId root="2.16.840.1.493081.10.20.22.4.2" /> < id nullFlavor="NA" /> <code codeSystem="local&quot ; code="GLUMON" displayName="GLUCOSE (POC)" /> & lt;statusCode code="completed" /> <effectiveTime value= "432772142847"/> <value unit="mg/dL" xsi:type ="PQ" value="103" /> <interpretationCode codeSystem="local" code="*" /> < referenceRange> <observationRange> <text> 70-99</text> </observationRange> </referenceRange& gt; </observation> </component> </organizer> & lt;/entry> <entry> <organizer moodCode="EVN" classCode ="BATTERY"> <templateId root=" 2.16.840.1.954801.10.20.22.4.1" /> <id nullFlavor="NA&quot ; /> <code codeSystem="local" code="GLUMON" displayName="GLUCOSE (POC)" /> <statusCode code=" completed" /> <component> <observation moodCode=& quot;EVN" classCode="OBS"> <templateId root=" 2.16.840.1.477316.10.20.22.4.2" /> <id nullFlavor="NA& quot; /> <code codeSystem="local" code="GLUMON& quot; displayName="GLUCOSE (POC)" /> <statusCode code=& quot;completed" /> <effectiveTime value="723813841975& quot; /> <valueunit="mg/dL" xsi:type="PQ" value="106" /> <interpretationCode codeSystem=" local" code="*" /> <referenceRange> < observationRange> <text>70-99</text> < /observationRange> </referenceRange> </observation& gt; </component> </organizer> </entry> <entry&gt ; <organizer moodCode="EVN" classCode="BATTERY"> <templateId root="2.16.840.1.458843.10.20.22.4.1" /> & lt;id nullFlavor="NA" /> <code codeSystem="local&quot ; code="GLUMON" displayName="GLUCOSE (POC)" /> < statusCode code="completed" /> <component> < observation moodCode="EVN" classCode="OBS"> < templateId root="2.16.840.1.729608.10.20.22.4.2" /> < id nullFlavor="NA" /> <code codeSystem="local&quot ; code="GLUMON" displayName="GLUCOSE (POC)" /> & lt;statusCode code="completed" /> <effectiveTime value=" 894335493110" /> <value unit="mg/dL" xsi:type=& quot;PQ" value="106" /> <interpretationCode codeSystem="local" code="*" /> < referenceRange> <observationRange> <text> 70-99</text> </observationRange> </ referenceRange> </observation> </component> </ organizer> </entry> <entry> <organizer moodCode="EVN " classCode="BATTERY"> <templateId root=" 2.16.840.1.911067.10.20.22.4.1" /> <id nullFlavor="NA&quot ; /> <code codeSystem="local" code="CBC" displayName="CBC" /> <statusCode code="completed&quot ; /> <component> <observation moodCode="EVN" classCode="OBS"> <templateId root=" 2.16.840.1.717107.10..22.4.2" /> <id nullFlavor="NA& quot; /> <code codeSystem="local" code="MCH" displayName="MEAN CELL HGB" /> <statusCode code=" completed" /> <effectiveTime value="436193851084" /> <value unit="pg" xsi:type="PQ" value=&quot ;34.3" /> <interpretationCode codeSystem="local" code="*" /> <referenceRange> <observationRange& gt; <text>27.0-33.0</text> </ observationRange> </referenceRange> </observation&gt ; </component> <component> <observation moodCode ="EVN" classCode="OBS"> <templateId root=& quot;2.16.840.1.926404.10..22.4.2" /> <id nullFlavor=&quot ;NA" /> <code codeSystem="local" code="MCHC& quot; displayName="MEAN CELL HGB CONCENTRATION" /> < statusCode code="completed" /> <effectiveTime value=& quot;910074450005" /> <value unit="g/dl" xsi:type=& quot;PQ" value="35.1" /><referenceRange> < observationRange> <text>32.0-36.0</text> </observationRange> </referenceRange> </ observation> </component> <component> < observation moodCode="EVN" classCode="OBS"> < templateId root="2.16.840.1.128265.10.20.22.4.2" /> < id nullFlavor="NA" /> <code codeSystem="local&quot ; code="MCV" displayName="MEAN CELL VOLUME" /> & lt;statusCode code="completed" /> <effectiveTime value= "171557661163" /> <value unit="fl" xsi:type=& quot;PQ" value="97.6" /> <referenceRange> <observationRange> <text>80.0-100.0</text&gt ; </observationRange> </referenceRange> </ observation> </component> <component> < observation moodCode="EVN" classCode="OBS"> < templateId root="2.16.840.1.685793.10.20.22.4.2" /> < id nullFlavor="NA" /> <code codeSystem="local&quot ; code="RBC" displayName="RED BLOOD CELL" /> &lt ;statusCode code="completed"/> <effectiveTime value=& quot;755505872106" /> <value unit="m/cumm" xsi: type="PQ" value="2.56" /> < interpretationCode codeSystem="local" code="*" /> <referenceRange> <observationRange> < text>4.00-6.00</text> </observationRange> &lt ;/referenceRange> </observation> </component> & lt;component> <observation moodCode="EVN" classCode=&quot ;OBS"> <templateId root="2.16.840.1.778163.10.20.22.4.2 " /> <id nullFlavor="NA" /> <code codeSystem="local" code="RDW" displayName="RED CELL DISTRIBUTION WIDTH" /> <statusCode code="completed&quot ; /><effectiveTime value="162392138245" /> < value unit="%"xsi:type="PQ" value="13.8" / > <referenceRange> <observationRange> <text>11.0-15.6</text> </observationRange> </referenceRange> </observation> </component > <component> <observation moodCode="EVN" classCode="OBS"> <templateId root=" 2.16.840.1.803616.10.20.22.4.2" /> <id nullFlavor="NA& quot; /> <code codeSystem="local" code="WBC" displayName="WHITE BLOOD CELL" /> <statusCode code=& quot;completed" /> <effectiveTime value="354714349575& quot; /> <value unit="k/cumm" xsi:type="PQ" value="7.2" /> <referenceRange> < observationRange> <text>5.0-10.0</text> & lt;/observationRange></referenceRange> </observation> </component> <component> <observation moodCode=" EVN" classCode="OBS"> <templateId root=" 2.16.840.1.802655.10.20.22.4.2" /> <id nullFlavor="NA& quot; /> <code codeSystem="local" code="HGBT" displayName="HEMOGLOBIN" /> <statusCode code=" completed" /> <effectiveTime value="643986823439" /> <value unit="gm/dL" xsi:type="PQ" value=& quot;8.8" /> <interpretationCode codeSystem="local&quot ; code="*" /> <referenceRange> < observationRange> <text>14.0-18.0</text> </observationRange> </referenceRange> </ observation> </component> <component> < observation moodCode="EVN" classCode="OBS"> < templateId root="2.16.840.1.483976.10.20.22.4.2" /> < id nullFlavor="NA" /> <code codeSystem="local&quot ; code="HCTT" displayName="HEMATOCRIT" /> < statusCodecode="completed" /> <effectiveTime value=& quot;131859897979" /> <value unit="%" xsi:type= "PQ" value="25.0" /> <interpretationCode codeSystem= "local" code="*" /> <referenceRange> <observationRange> <text>40.0-54.0</text> </observationRange> </referenceRange> </ observation> </component> <component> < observation moodCode="EVN" classCode="OBS"> < templateId root="2.16.840.1.134422.10.20.22.4.2" /> <id nullFlavor="NA" /> <code codeSystem="local" code="PLT" displayName="PLATELET COUNT" /> < statusCode code="completed" /> <effectiveTime value=& quot;989798698079" /> <value unit="k/cumm" xsi: type="PQ" value="69" /> <interpretationCode codeSystem="local" code="*" /> < referenceRange> <observationRange> <text> 150-450</text> </observationRange> </ referenceRange> </observation> </component> </ organizer> </entry> <entry> <organizer moodCode="EVN " classCode="BATTERY"> <templateId root=" 2.16.840.1.355093.10.20.22.4.1" /> <id nullFlavor="NA&quot ; /> <code codeSystem="local" code="METAB" displayName="METABOLIC PANEL, BASIC" /> <statusCode code=& quot;completed" /> <component> <observation moodCode=& quot;EVN" classCode="OBS"> <templateId root=" 2.16.840.1.278797.10.20.22.4.2" /> <id nullFlavor="NA& quot; /> <code codeSystem="local" code="K" displayName="POTASSIUM" /> <statusCode code=" completed" /> <effectiveTime value="766672444586" /> <value unit="mmol/L" xsi:type="PQ" value=& quot;4.5" /> <referenceRange> < observationRange> <text>3.5-5.3</text> & lt;/observationRange></referenceRange> </observation> </component> <component> <observation moodCode=" EVN" classCode="OBS"> <templateId root=" 2.16.840.1.514543.10.20.22.4.2" /> <id nullFlavor="NA& quot; /> <code codeSystem="local" code="eGFR" displayName="EST GFR (MDRD)" /> <statusCode code=" completed" /> <effectiveTime value="[id number]" /> <value unit="mL/min" xsi:type="PQ" value=& quot;> 60" /> <referenceRange> < observationRange> <text>> 59</text> </observationRange> </referenceRange> </ observation> </component> <component> <observation moodCode="EVN" classCode="OBS"> <templateId root="[id number]" /> <id nullFlavor ="NA" /> <code codeSystem="local" code="GAP& quot; displayName="ANION GAP" /> <statusCode code=&quot ;completed" /> <effectiveTime value="[id number]&quot ; /> <value unit="mmol/L" xsi:type="PQ" value ="8" /> <referenceRange> < observationRange> <text>5-15</text> </ observationRange> </referenceRange> </observation> </component> <component> <observation moodCode=& quot;EVN" classCode="OBS"> <templateId root=" 2.16.840.1.527583.10.20.22.4.2" /> <id nullFlavor="NA& quot; /> <code codeSystem="local" code="GLU" displayName="GLUCOSE" /> <statusCodecode=" completed" /> <effectiveTime value="841534032333" /> <value unit="mg/dL" xsi:type="PQ" value=" 98" /> <referenceRange> <observationRange& gt; <text>70-99</text> </observationRange& gt; </referenceRange> </observation> </component& gt; <component> <observation moodCode="EVN" classCode="OBS"> <templateId root=" 2.16.840.1.870421.10.20.22.4.2" /> <id nullFlavor="NA&quot ; /> <code codeSystem="local" code="CA" displayName="CALCIUM" /> <statusCode code=" completed" /> <effectiveTime value="680903751366" /> <value unit="mg/dL" xsi:type="PQ" value=& quot;8.0" /> <interpretationCode codeSystem="local&quot ; code="*" /> <referenceRange> < observationRange> <text>8.5-10.1</text> & lt;/observationRange> </referenceRange> </observation&gt ; </component> <component> <observation moodCode ="EVN" classCode="OBS"> <templateId root=& quot;2.16.840.1.331811.10.20.22.4.2" /> <id nullFlavor=&quot ;NA"/> <code codeSystem="local" code="BUN& quot; displayName="BLOOD UREA NITROGEN" /> <statusCode code="completed" /> <effectiveTime value=" 745182772326" /> <value unit="mg/dL" xsi:type=& quot;PQ" value="16" /> <referenceRange> <observationRange> <text>7-20</text> </observationRange> </referenceRange> </ observation> </component> <component> < observation moodCode="EVN" classCode="OBS"> < templateId root="2.16.840.1.904908.10.20.22.4.2" /> < id nullFlavor="NA" /> <code codeSystem="local&quot ; code="CREAT" displayName="CREATININE" /> < statusCode code="completed" /> <effectiveTime value=& quot;809426380945" /> <value unit="mg/dL" xsi:type ="PQ" value="0.7" /> <interpretationCode codeSystem="local" code="*" /> <referenceRange& gt; <observationRange> <text>0.8-1.3</ text> </observationRange> </referenceRange> </observation> </component> <component> <observation moodCode="EVN" classCode="OBS"> <templateId root="2.16.840.1.655197.10..22.4.2" /> <id nullFlavor="NA" /> <code codeSystem=" local" code="NA" displayName="SODIUM" /> & lt;statusCode code="completed" /> <effectiveTime value= "919465249320" /> <value unit="mmol/L" xsi: type="PQ" value="134" /> <interpretationCode codeSystem="local" code="*" /> < referenceRange> <observationRange> <text>135-148< /text> </observationRange> </referenceRange> </observation> </component> <component> <observation moodCode="EVN" classCode="OBS"> < templateId root="2.16.840.1.112935.10.20.22.4.2" /> < id nullFlavor="NA" /> <code codeSystem="local&quot ; code="CL" displayName="CHLORIDE" /> < statusCode code="completed" /> <effectiveTime value=& quot;314880572509" /> <value unit="mmol/L" xsi: type="PQ" value="104" /> <referenceRange> <observationRange> <text>98-110</text&gt ; </observationRange> </referenceRange> & lt;/observation> </component> <component> < observation moodCode="EVN" classCode="OBS"> < templateId root="2.16.840.1.115462.10.20.22.4.2" /> < id nullFlavor="NA" /> <code codeSystem="local" code=& quot;CO2" displayName="CARBON DIOXIDE" /> < statusCode code="completed" /> <effectiveTime value=& quot;976586743243" /> <value unit="mmol/L" xsi: type="PQ" value="22" /> <referenceRange> <observationRange> <text>21-32</text> </observationRange> </referenceRange> </ observation> </component> </organizer> </entry> & lt;entry> <organizer moodCode="EVN" classCode="BATTERY& quot;> <templateId root="2.16.840.1.686266.10.20.22.4.1" /& gt; <id nullFlavor="NA" /> <code codeSystem=" local" code="PHOS" displayName="PHOSPHORUS" /> & lt;statusCode code="completed" /> <component> &lt ;observation moodCode="EVN" classCode="OBS"> &lt ;templateId root="2.16.840.1.893821.10.20.22.4.2" /> < id nullFlavor="NA" /> <code codeSystem="local&quot ; code="PHOS" displayName="PHOSPHORUS" /> < statusCode code="completed" /> <effectiveTime value=& quot;133596830550" /> <value unit="mg/dL" xsi:type ="PQ" value="3.1" /> <referenceRange> <observationRange> <text>2.5-4.9</text> </observationRange> </referenceRange> </ observation> </component> </organizer> </entry> & lt;entry> <organizer moodCode="EVN" classCode="BATTERY& quot;> <templateId root="2.16.840.1.946638.10.20.22.4.1" /& gt; <id nullFlavor="NA" /> <code codeSystem=" local" code="TRIG" displayName="TRIGLYCERIDES" /> <statusCode code="completed" /> <component> <observation moodCode="EVN" classCode="OBS"> <templateId root="2.16.840.1.557699.10.20.22.4.2" /> <id nullFlavor="NA" /> <code codeSystem=" local" code="TRIG" displayName="TRIGLYCERIDES" /> <statusCode code="completed" /> < effectiveTime value="614738557707" /> <value unit="mg/dL& quot; xsi:type="PQ" value="52" /> < referenceRange> <observationRange> <text> < 150</text> </observationRange> </ referenceRange> </observation> </component> </ organizer> </entry> <entry> <organizer moodCode="EVN " classCode="BATTERY"> <templateId root=" 2.16.840.1.139745.10.20.22.4.1" /> <id nullFlavor="NA&quot ; /> <code codeSystem="local" code="MAG" displayName="MAGNESIUM" /> <statusCode code="completed " /> <component> <observation moodCode="EVN& quot; classCode="OBS"> <templateId root=" 2.16.840.1.980039.10.20.22.4.2" /> <id nullFlavor="NA& quot; /> <code codeSystem="local" code="MAG" displayName="MAGNESIUM" /> <statusCode code=" completed" /> <effectiveTime value="376617116954" /> <value unit="mg/dL" xsi:type="PQ" value=& quot;2.1" /> <referenceRange> < observationRange> <text>1.8-2.4</text> & lt;/observationRange> </referenceRange> </ observation> </component> </organizer> </entry> & lt;entry> <organizer moodCode="EVN" classCode="BATTERY& quot;> <templateId root="2.16.840.1.052920.10.20.22.4.1" /& gt; <id nullFlavor="NA" /> <code codeSystem=" local" code="PREALB" displayName="PREALBUMIN" /> <statusCode code="completed"/> <component> <observation moodCode="EVN" classCode="OBS"> <templateId root="2.16.840.1.101515.10.20.22.4.2" /> & lt;id nullFlavor="NA" /> <code codeSystem="local& quot; code="PREALB" displayName="PREALBUMIN" /> <statusCode code="completed" /> <effectiveTime value=& quot;497502264050" /> <value unit="mg/dL" xsi:type ="PQ" value="11" /> <interpretationCode codeSystem="local" code="*" /> < referenceRange> <observationRange> <text> 20-40</text> </observationRange> </ referenceRange> </observation> </component> </ organizer> </entry> <entry> <organizer moodCode="EVN " classCode="BATTERY"> <templateId root=" 2.16.840.1.412105.10.20.22.4.1" /> <id nullFlavor="NA&quot ; /> <code codeSystem="local" code="CBC" displayName="CBC" /> <statusCode code="completed&quot ; /> <component> <observation moodCode="EVN" classCode="OBS"> <templateId root=" 2.16.840.1.142566.10.20.22.4.2" /> <id nullFlavor="NA& quot; /> <code codeSystem="local" code="MCH" displayName="MEAN CELL HGB" /> <statusCode code=" completed" /> <effectiveTime value="759840932530" /> <value unit="pg" xsi:type="PQ" value=&quot ;34.3" /> <interpretationCode codeSystem="local" code="*" /> <referenceRange> < observationRange> <text>27.0-33.0</text> </observationRange> </referenceRange> </ observation> </component> <component> < observation moodCode="EVN" classCode="OBS"> < templateId root="2.16.840.1.551411.10.20.22.4.2" /> < id nullFlavor="NA" /> <code codeSystem="local&quot ; code="MCHC" displayName="MEAN CELL HGB CONCENTRATION" /&gt ; <statusCode code="completed" /> < effectiveTime value="313902136705" /> <value unit=&quot ;g/dl" xsi:type="PQ" value="35.1" /> < referenceRange> <observationRange> <text> 32.0-36.0</text> </observationRange> </ referenceRange> </observation> </component> < component> <observation moodCode="EVN" classCode=" OBS"> <templateId root="2.16.840.1.704873.10.20.22.4.2& quot; /> <id nullFlavor="NA" /> <code codeSystem="local" code="MCV" displayName="MEAN CELL VOLUME" /> <statusCode code="completed" /> <effectiveTime value="279821608295" /> <value unit="fl" xsi:type="PQ" value="97.6" /> <referenceRange> <observationRange> < text>80.0-100.0</text> </observationRange> </ referenceRange> </observation> </component> < component> <observation moodCode="EVN" classCode=" OBS"> <templateId root="2.16.840.1.302739.10.20.22.4.2& quot; /> <id nullFlavor="NA" /> <code codeSystem="local" code="RBC" displayName="RED BLOOD CELL" /> <statusCode code="completed" /> <effectiveTime value="283336613246" /> <value unit="m/cumm" xsi:type="PQ" value="2.56" /> <interpretationCodecodeSystem="local" code="*" /& gt; <referenceRange> <observationRange> <text>4.00-6.00</text> </observationRange> </referenceRange> </observation> </component& gt; <component> <observation moodCode="EVN" classCode="OBS"> <templateId root=" 2.16.840.1.896697.10.20.22.4.2" /> <id nullFlavor="NA& quot; /> <code codeSystem="local" code="RDW" displayName="RED CELL DISTRIBUTION WIDTH" /> < statusCode code="completed" /> <effectiveTime value=" 484762065555" /> <value unit="%" xsi:type= "PQ" value="13.8" /> <referenceRange> <observationRange> <text>11.0-15.6</text&gt ; </observationRange> </referenceRange> & lt;/observation> </component> <component> < observation moodCode="EVN" classCode="OBS"> < templateId root="2.16.840.1.239953.10.20.22.4.2" /> < id nullFlavor="NA" /> <code codeSystem="local&quot ; code="WBC" displayName="WHITE BLOOD CELL" /> & lt;statusCode code="completed" /> <effectiveTime value= "769060812729" /> <value unit="k/cumm" xsi: type="PQ" value="7.2" /> <referenceRange> <observationRange> <text>5.0-10.0</text& gt; </observationRange> </referenceRange> </ observation> </component> <component> < observation moodCode="EVN" classCode="OBS"> < templateId root="2.16.840.1.708835.10.20.22.4.2" /> < id nullFlavor="NA" /> <code codeSystem="local&quot ; code="HGBT" displayName="HEMOGLOBIN" /> < statusCode code="completed" /> <effectiveTime value=& quot;909050699879" /> <value unit="gm/dL" xsi:type ="PQ" value="8.8" /> <interpretationCode codeSystem="local" code="*" /> < referenceRange> <observationRange> <text> 14.0-18.0</text> </observationRange> </ referenceRange> </observation> </component> < component> <observation moodCode="EVN" classCode=" OBS"> <templateId root="2.16.840.1.581835.10.20.22.4.2& quot; /> <id nullFlavor="NA" /> <code codeSystem="local" code="HCTT" displayName="HEMATOCRIT& quot; /> <statusCode code="completed" /> & lt;effectiveTime value="770568358710" /> <value unit=& quot;%" xsi:type="PQ" value="25.0" /> <interpretationCode codeSystem="local" code="*" /> <referenceRange> <observationRange> & lt;text>40.0-54.0</text> </observationRange> &lt ;/referenceRange> </observation></component> < component> <observation moodCode="EVN" classCode=" OBS"> <templateId root="2.16.840.1.600889.10..22.4.2& quot; /> <id nullFlavor="NA" /> <code codeSystem="local" code="PLT" displayName="PLATELET COUNT" /> <statusCode code="completed" /> <effectiveTime value="881636243671" /> <value unit="k/cumm" xsi:type="PQ" value="69" /> <interpretationCodecodeSystem="local" code="*" /&gt ; <referenceRange> <observationRange> <text>150-450</text> </observationRange> </referenceRange> </observation> </component> </organizer> </entry> <entry> <organizer moodCode= "EVN" classCode="BATTERY"> <templateId root=&quot ;2.16.840.1.846623.10.20.22.4.1" /> <idnullFlavor="NA&quot ; /> <code codeSystem="local" code="METAB" displayName="METABOLIC PANEL, BASIC" /> <statusCode code=& quot;completed" /> <component> <observation moodCode="EVN" classCode="OBS"> <templateId root="2.16.840.1.449934.10.20.22.4.2" /> <id nullFlavor ="NA" /> <code codeSystem="local" code=" K" displayName="POTASSIUM" /> <statusCode code=& quot;completed" /> <effectiveTime value="914742791752& quot; /> <value unit="mmol/L" xsi:type="PQ" value="4.5" /> <referenceRange> < observationRange> <text>3.5-5.3</text> & lt;/observationRange> </referenceRange> </observation> </component> <component> <observation moodCode= "EVN" classCode="OBS"> <templateId root=&quot ;2.16.840.1.198956.10.20.22.4.2" /> <id nullFlavor="NA& quot; /> <code codeSystem="local" code="eGFR&quot ; displayName="EST GFR (MDRD)" /> <statusCode code=& quot;completed" /> <effectiveTimevalue="940500642113& quot; /> <value unit="mL/min" xsi:type="PQ" value="> 60" /> <referenceRange> & lt;observationRange> <text>> 59</text> </observationRange> </referenceRange> </observation& gt; </component> <component> <observation moodCode ="EVN" classCode="OBS"> <templateIdroot=&quot ;2.16.840.1.957537.10.20.22.4.2" /> <id nullFlavor="NA& quot; /> <code codeSystem="local" code="GAP" displayName="ANION GAP" /> <statusCode code=" completed" /> <effectiveTime value="932860131700" /> <value unit="mmol/L" xsi:type="PQ" value=& quot;8" /> <referenceRange> < observationRange><text>5-15</text> </ observationRange> </referenceRange> </observation> </component> <component> <observation moodCode= "EVN" classCode="OBS"> <templateId root=&quot ;2.16.840.1.387441.10.20.22.4.2" /> <id nullFlavor="NA& quot; /> <code codeSystem="local" code="GLU" displayName="GLUCOSE" /> <statusCode code=" completed" /> <effectiveTime value="446231949786" /> <value unit="mg/dL" xsi:type="PQ" value=& quot;98" /> <referenceRange> <observationRange> <text>70-99</text> </observationRange&gt ; </referenceRange> </observation> </ component> <component> <observation moodCode="EVN& quot; classCode="OBS"> <templateId root=" 2.16.840.1.849784.10.20.22.4.2" /> <id nullFlavor="NA& quot; /> <code codeSystem="local" code="CA" displayName="CALCIUM" /> <statusCode code=" completed" /> <effectiveTime value="773289905039" /> <value unit="mg/dL" xsi:type="PQ" value=& quot;8.0" /> <interpretationCode codeSystem="local&quot ; code="*" /> <referenceRange> < observationRange> <text>8.5-10.1</text> & lt;/observationRange> </referenceRange> </ observation> </component> <component> < observation moodCode="EVN" classCode="OBS"> < templateId root="2.16.840.1.034500.10.20.22.4.2" /> < id nullFlavor="NA" /> <code codeSystem="local&quot ; code="BUN" displayName="BLOOD UREA NITROGEN" /> <statusCode code="completed" /> <effectiveTime value="241509668570" /> <value unit="mg/dL" xsi:type="PQ" value="16" /> <referenceRange& gt; <observationRange> <text>7-20</text& gt; </observationRange> </referenceRange> </observation> </component> <component> &lt ;observation moodCode="EVN" classCode="OBS"> &lt ;templateId root="2.16.840.1.086833.10.20.22.4.2" /> < id nullFlavor="NA" /> <code codeSystem="local" code= "CREAT" displayName="CREATININE" /> < statusCode code="completed" /> <effectiveTime value=& quot;515546549819" /> <value unit="mg/dL" xsi:type ="PQ" value="0.7" /> <interpretationCode codeSystem="local" code="*" /> < referenceRange> <observationRange> <text> 0.8-1.3</text> </observationRange> </ referenceRange> </observation> </component> < component> <observation moodCode="EVN" classCode=" OBS"> <templateId root="2.16.840.1.562749.10.20.22.4.2& quot; /> <id nullFlavor="NA" /> <code codeSystem="local" code="NA" displayName="SODIUM" /> <statusCode code="completed" /> < effectiveTime value="130460116426" /> <value unit=&quot ;mmol/L" xsi:type="PQ" value="134" /> < interpretationCode codeSystem="local" code="*" /> <referenceRange> <observationRange> <text> 135-148</text> </observationRange> </ referenceRange> </observation> </component> < component> <observation moodCode="EVN" classCode=" OBS"> <templateId root="2.16.840.1.160712.10.20.22.4.2&quot ; /> <id nullFlavor="NA" /> <code codeSystem="local" code="CL" displayName="CHLORIDE&quot ; /> <statusCode code="completed" /> < effectiveTime value="369342803175" /> <value unit=&quot ;mmol/L" xsi:type="PQ" value="104" /> < referenceRange> <observationRange> <text> 98-110</text> </observationRange> </ referenceRange> </observation> </component> < component> <observation moodCode="EVN" classCode="OBS&quot ;> <templateId root="2.16.840.1.392986.10.20.22.4.2" /& gt; <id nullFlavor="NA" /> <code codeSystem=& quot;local" code="CO2" displayName="CARBON DIOXIDE" /& gt; <statusCode code="completed" /> < effectiveTime value="236950194944" /> <value unit=&quot ;mmol/L" xsi:type="PQ" value="22" /> < referenceRange> <observationRange> <text>21-32</ text> </observationRange> </referenceRange> </observation> </component> </organizer> </ entry> <entry> <organizer moodCode="EVN" classCode=& quot;BATTERY"> <templateId root=" 2.16.840.1.044295.10.20.22.4.1" /> <id nullFlavor="NA&quot ; /> <code codeSystem="local" code="PHOS" displayName="PHOSPHORUS" /> <statusCode code=" completed" /> <component> <observation moodCode=& quot;EVN" classCode="OBS"> <templateId root=" 2.16.840.1.811027.10.20.22.4.2" /> <id nullFlavor="NA& quot; /> <code codeSystem="local" code="PHOS&quot ; displayName="PHOSPHORUS" /> <statusCode code=" completed" /> <effectiveTime value="277342323393" /> <value unit="mg/dL" xsi:type="PQ" value=& quot;3.1" /> <referenceRange> < observationRange> <text>2.5-4.9</text> & lt;/observationRange> </referenceRange> </ observation> </component> </organizer> </entry> & lt;entry> <organizer moodCode="EVN" classCode="BATTERY& quot;> <templateId root="2.16.840.1.405867.10.20.22.4.1" /& gt; <id nullFlavor="NA" /> <code codeSystem=" local" code="TRIG" displayName="TRIGLYCERIDES" /> <statusCode code="completed" /> <component> <observation moodCode="EVN" classCode="OBS"> <templateId root="2.16.840.1.256687.10.20.22.4.2" /> <id nullFlavor="NA" /> <code codeSystem=" local" code="TRIG" displayName="TRIGLYCERIDES" /> <statusCode code="completed" /> < effectiveTime value="465562105504" /> <value unit="mg/ dL" xsi:type="PQ" value="52" /> < referenceRange> <observationRange> <text> < 150</text> </observationRange> </ referenceRange> </observation> </component> </ organizer> </entry> <entry> <organizer moodCode="EVN " classCode="BATTERY"> <templateId root=" 2.16.840.1.455471.10.20.22.4.1" /> <id nullFlavor="NA&quot ; /> <code codeSystem="local" code="MAG" displayName="MAGNESIUM" /> <statusCode code="completed " /> <component> <observation moodCode="EVN& quot; classCode="OBS"> <templateId root=" 2.16.840.1.959863.10.20.22.4.2" /> <id nullFlavor="NA& quot; /> <code codeSystem="local" code="MAG" displayName="MAGNESIUM" /> <statusCode code=" completed" /> <effectiveTime value="694047139554" /> <value unit="mg/dL" xsi:type="PQ" value=& quot;2.1" /> <referenceRange> < observationRange> <text>1.8-2.4</text> & lt;/observationRange> </referenceRange> </ observation> </component> </organizer> </entry> & lt;entry> <organizer moodCode="EVN"classCode="BATTERY& quot;> <templateId root="2.16.840.1.281468.10.20.22.4.1" /& gt; <id nullFlavor="NA" /> <code codeSystem=" local" code="PREALB" displayName="PREALBUMIN" /> <statusCode code="completed" /> <component> <observation moodCode="EVN" classCode="OBS"> <templateId root="2.16.840.1.922550.10.20.22.4.2" /> <id nullFlavor="NA" /> <code codeSystem=" local" code="PREALB" displayName="PREALBUMIN" /> <statusCode code="completed" /> < effectiveTime value="416736382429" /> <value unit=&quot ;mg/dL" xsi:type="PQ" value="11" /> < interpretationCode codeSystem="local" code="*" /> <referenceRange> <observationRange> < text>20-40</text> </observationRange> </ referenceRange> </observation> </component> </ organizer> </entry> <entry> <organizer moodCode="EVN " classCode="BATTERY"> <templateId root=" 2.16.840.1.336776.10.20.22.4.1" /> <id nullFlavor="NA&quot ; /> <code codeSystem="local" code="GLUMON" displayName="GLUCOSE (POC)" /> <statusCode code=" completed" /> <component> <observation moodCode=& quot;EVN" classCode="OBS"> <templateId root=" 2.16.840.1.858131.10.20.22.4.2" /> <id nullFlavor="NA& quot;/> <code codeSystem="local" code="GLUMON&quot ; displayName="GLUCOSE (POC)" /> <statusCode code=&quot ;completed" /> <effectiveTime value="669645310901&quot ; /> <value unit="mg/dL" xsi:type="PQ" value= "116" /> <interpretationCode codeSystem="local& quot; code="*" /> <referenceRange> < observationRange> <text>70-99</text> < /observationRange> </referenceRange> </observation> </component> </organizer> </entry> <entry> <organizer moodCode="EVN" classCode="BATTERY"> <templateId root="2.16.840.1.221580.10.20.22.4.1" /> < id nullFlavor="NA" /> <code codeSystem="local" code="GLUMON" displayName="GLUCOSE (POC)" /> < statusCode code="completed" /> <component> < observation moodCode="EVN" classCode="OBS"> < templateId root="2.16.840.1.770652.10.20.22.4.2" /> < id nullFlavor="NA" /> <code codeSystem="local&quot ; code="GLUMON" displayName="GLUCOSE (POC)" /> < statusCode code="completed" /> <effectiveTime value=& quot;861822623506" /> <value unit="mg/dL" xsi:type ="PQ" value="116" /> <interpretationCode codeSystem="local" code="*" /> <referenceRange> <observationRange> <text>70-99</text> </observationRange> </referenceRange> &lt ;/observation> </component> </organizer> </entry> <entry> <organizer moodCode="EVN" classCode=" BATTERY"> <templateId root="2.16.840.1.206270.10.20.22.4.1& quot; /> <id nullFlavor="NA" /> <code codeSystem ="local" code="PT" displayName="PROTHROMBIN TIME WITH INR" /> <statusCode code="completed" /> < component> <observation moodCode="EVN" classCode=" OBS"> <templateId root="2.16.840.1.390484.10..22.4.2& quot; /> <id nullFlavor="NA" /> <code codeSystem="local" code="INRX" displayName=" INTERNATIONAL NORMAL RATIO" /> <statusCode code=" completed" /> <effectiveTime value="934804958047" /> <value unit="" xsi:type="PQ" value=" 1.3" /> <interpretationCode codeSystem="local" code=& quot;*" /> <referenceRange> < observationRange> <text>0.9-1.1</text> </ observationRange> </referenceRange> </observation&gt ; </component> <component> <observation moodCode ="EVN" classCode="OBS"> <templateId root=& quot;2.16.840.1.424461.10..22.4.2" /> <id nullFlavor="NA&quot ; /> <code codeSystem="local" code="PTPAT" displayName="PROTHROMBIN TIME" /> <statusCode code=& quot;completed" /> <effectiveTime value="962857237811& quot; /> <value unit="sec" xsi:type="PQ" value="13.3" /> <interpretationCodecodeSystem=" local" code="*" /> <referenceRange> <observationRange> <text>9.3-12.2</text> </observationRange> </referenceRange> </ observation> </component> </organizer> </entry> & lt;entry> <organizer moodCode="EVN" classCode="BATTERY& quot;> <templateId root="2.16.840.1.139733.10.20.22.4.1" /& gt; <id nullFlavor="NA" /> <code codeSystem=" local" code="PT" displayName="PROTHROMBIN TIME WITH INR&quot ; /> <statusCode code="completed" /> <component& gt; <observation moodCode="EVN" classCode="OBS"&gt ; <templateId root="2.16.840.1.031457.10.20.22.4.2" /> <id nullFlavor="NA" /> <code codeSystem=& quot;local" code="INRX" displayName="INTERNATIONAL NORMAL RATIO" /> <statusCode code="completed" /> <effectiveTime value="875930010732" /> <value unit="" xsi:type="PQ" value="1.3" /> & lt;interpretationCode codeSystem="local" code="*" /> <referenceRange> <observationRange> & lt;text>0.9-1.1</text> </observationRange> </ referenceRange> </observation> </component> < component> <observation moodCode="EVN" classCode=" OBS"> <templateId root="2.16.840.1.704402.10.20.22.4.2& quot; /> <id nullFlavor="NA" /> <code codeSystem="local" code="PTPAT" displayName=" PROTHROMBIN TIME" /> <statusCode code="completed" /> <effectiveTime value="959991234656" /> & lt;value unit="sec" xsi:type="PQ" value="13.3" /& gt; <interpretationCode codeSystem="local" code="*& quot; /> <referenceRange> <observationRange> <text>9.3-12.2</text> </observationRange > </referenceRange> </observation> </ component> </organizer> </entry> <entry> < organizer moodCode="EVN" classCode="BATTERY"> < templateId root="[id number]" /> <id nullFlavor="NA" /> <code codeSystem="local" code=&quot ;GLUMON" displayName="GLUCOSE (POC)"/> <statusCode code="completed" /> <component> <observation moodCode="EVN" classCode="OBS"> <templateId root="[id number]" /> <id nullFlavor ="NA" /> <code codeSystem="local" code=" GLUMON" displayName="GLUCOSE (POC)" /> <statusCode code="completed" /> <effectiveTime value=" [id number]" /> <value unit="mg/dL" xsi:type=& quot;PQ" value="109" /> <interpretationCode codeSystem="local" code="*" /> <referenceRange> <observationRange> <text>70-99</text&gt ; </observationRange> </referenceRange> & lt;/observation> </component> </organizer> </entry&gt ; <entry> <organizer moodCode="EVN" classCode=" BATTERY"> <templateId root="2.16.840.1.324329.10.20.22.4.1& quot; /> <id nullFlavor="NA" /> <code codeSystem ="local" code="GLUMON" displayName="GLUCOSE (POC)&quot ; /> <statusCode code="completed" /> <component& gt; <observation moodCode="EVN" classCode="OBS"&gt ; <templateId root="2.16.840.1.963624.10.20.22.4.2" /> <id nullFlavor="NA" /> <code codeSystem=& quot;local" code="GLUMON" displayName="GLUCOSE (POC)" / > <statusCode code="completed" /> < effectiveTime value="871611940371" /> <value unit="mg/dL& quot; xsi:type="PQ" value="109" /> < interpretationCode codeSystem="local" code="*" /> <referenceRange> <observationRange> < text>70-99</text> </observationRange> </ referenceRange> </observation> </component> </ organizer> </entry> <entry> <organizer moodCode="EVN " classCode="BATTERY"> <templateId root=" 2.16.840.1.116541.10.20.22.4.1" /> <id nullFlavor="NA&quot ; /> <code codeSystem="local" code="GLUMON" displayName="GLUCOSE (POC)" /> <statusCode code=" completed" /> <component> <observation moodCode=& quot;EVN" classCode="OBS"> <templateId root=" 2.16.840.1.503482.10.20.22.4.2" /> <id nullFlavor="NA& quot; /> <code codeSystem="local" code="GLUMON& quot; displayName="GLUCOSE (POC)" /> <statusCode code=& quot;completed" /> <effectiveTime value="013677329522& quot; /> <value unit="mg/dL" xsi:type="PQ" value="118" /> <interpretationCode codeSystem=" local" code="*" /> <referenceRange> <observationRange> <text>70-99</text> </observationRange> </referenceRange> </observation> </component> </organizer></entry> <entry> & lt;organizer moodCode="EVN" classCode="BATTERY"> &lt ;templateId root="2.16.840.1.580336.10.20.22.4.1" /> <id nullFlavor="NA" /> <code codeSystem="local" code= "GLUMON" displayName="GLUCOSE (POC)" /> < statusCode code="completed" /> <component> < observation moodCode="EVN" classCode="OBS"> < templateId root="2.16.840.1.894056.10.20.22.4.2" /> < id nullFlavor="NA" /> <code codeSystem="local&quot ; code="GLUMON" displayName="GLUCOSE (POC)" /> & lt;statusCode code="completed" /> <effectiveTime value= "065682681956" /> <value unit="mg/dL" xsi: type="PQ" value="118" /> <interpretationCode codeSystem="local" code="*" /> < referenceRange> <observationRange> <text>70-99</ text> </observationRange> </referenceRange> </observation> </component> </organizer> </ entry> <entry> <organizer moodCode="EVN" classCode=& quot;BATTERY"> <templateIdroot=" 2.16.840.1.753570.10.20.22.4.1" /> <id nullFlavor="NA&quot ; /> <code codeSystem="local" code="METAB" displayName="METABOLIC PANEL, BASIC" /> <statusCode code=& quot;completed" /> <component> <observation moodCode="EVN" classCode="OBS"> <templateId root="2.16.840.1.032262.10..22.4.2" /> <id nullFlavor ="NA" /> <code codeSystem="local" code="K" displayName="POTASSIUM" /> <statusCode code="completed " /> <effectiveTime value="069199113190" /> <value unit="mmol/L" xsi:type="PQ" value="4.3 " /> <referenceRange> <observationRange&gt ; <text>3.5-5.3</text> </observationRange > </referenceRange></observation> </component&gt ; <component> <observation moodCode="EVN" classCode="OBS"> <templateId root=" 2.16.840.1.855945.10.20.22.4.2" /> <id nullFlavor="NA& quot; /> <code codeSystem="local" code="eGFR&quot ; displayName="EST GFR (MDRD)" /> <statusCode code=& quot;completed" /> <effectiveTime value="455298377585& quot; /> <value unit="mL/min" xsi:type="PQ" value="> 60" /> <referenceRange> & lt;observationRange> <text>> 59</text> </observationRange> </referenceRange> </ observation> </component> <component> < observation moodCode="EVN" classCode="OBS"> < templateId root="2.16.840.1.730957.10..22.4.2" /> < id nullFlavor="NA" /> <code codeSystem="local&quot ; code="GAP" displayName="ANION GAP" /> < statusCode code="completed" /> <effectiveTime value=& quot;292283877319" /> <value unit="mmol/L" xsi:type=" PQ" value="9" /> <referenceRange> & lt;observationRange> <text>5-15</text> </ observationRange> </referenceRange> </observation&gt ; </component> <component> <observation moodCode ="EVN" classCode="OBS"> <templateId root=& quot;2.16.840.1.694498.10.20.22.4.2" /> <id nullFlavor="NA&quot ; /> <code codeSystem="local" code="GLU" displayName="GLUCOSE" /> <statusCode code=" completed" /> <effectiveTime value="829239953333" /> <value unit="mg/dL" xsi:type="PQ" value=& quot;109" /> <interpretationCode codeSystem="local&quot ; code="*" /> <referenceRange> < observationRange> <text>70-99</text> < /observationRange></referenceRange> </observation> & lt;/component> <component> <observation moodCode="EVN& quot; classCode="OBS"> <templateId root=" 2.16.840.1.474939.10.20.22.4.2" /> <id nullFlavor="NA& quot; /> <code codeSystem="local" code="CA" displayName="CALCIUM" /> <statusCode code=" completed" /> <effectiveTime value="113951814026" /> <value unit="mg/dL" xsi:type="PQ" value=& quot;7.6" /> <interpretationCode codeSystem="local&quot ; code="*" /> <referenceRange> < observationRange> <text>8.5-10.1</text> & lt;/observationRange> </referenceRange> </ observation> </component> <component> < observation moodCode="EVN" classCode="OBS"> < templateId root="2.16.840.1.996559.10.20.22.4.2" /> < id nullFlavor="NA" /> <code codeSystem="local&quot ; code="BUN" displayName="BLOOD UREA NITROGEN" /> <statusCode code="completed" /> <effectiveTime value="001220256701" /> <value unit="mg/dL" xsi: type="PQ" value="16" /> <referenceRange> <observationRange> <text>7-20</text> </observationRange> </referenceRange> < /observation> </component> <component> < observation moodCode="EVN" classCode="OBS"> < templateId root="2.16.840.1.356646.10.20.22.4.2" /> <id nullFlavor="NA" /> <code codeSystem="local" code="CREAT" displayName="CREATININE" /> < statusCode code="completed" /> <effectiveTime value=& quot;250036747777" /> <value unit="mg/dL" xsi:type ="PQ" value="0.7" /> < interpretationCodecodeSystem="local" code="*" /> <referenceRange> <observationRange> < text>0.8-1.3</text> </observationRange> </ referenceRange> </observation> </component> < component> <observation moodCode="EVN" classCode=" OBS"> <templateId root="2.16.840.1.370268.10.20.22.4.2& quot; /> <id nullFlavor="NA" /> <code codeSystem="local" code="NA" displayName="SODIUM" /> <statusCode code="completed" /> < effectiveTime value="666061223932" /> <value unit=&quot ;mmol/L" xsi:type="PQ" value="135" /> < referenceRange> <observationRange> <text>135- 148</text> </observationRange> </ referenceRange> </observation> </component> < component> <observation moodCode="EVN" classCode=" OBS"> <templateId root="2.16.840.1.430990.10.20.22.4.2& quot; /> <id nullFlavor="NA" /> <code codeSystem="local" code="CL" displayName="CHLORIDE&quot ; /> <statusCode code="completed" /> < effectiveTime value="251743707224" /> <value unit=&quot ;mmol/L" xsi:type="PQ" value="104"/> < referenceRange> <observationRange> <text> 98-110</text> </observationRange> </ referenceRange> </observation> </component> < component> <observation moodCode="EVN" classCode=" OBS"> <templateId root="2.16.840.1.379633.10.20.22.4.2& quot; /> <id nullFlavor="NA" /> <code codeSystem="local" code="CO2" displayName="CARBON DIOXIDE" /> <statusCode code="completed" /> <effectiveTime value="631918707429" /> <value unit= "mmol/L" xsi:type="PQ" value="22" /> & lt;referenceRange> <observationRange> <text& gt;21-32</text> </observationRange> </ referenceRange> </observation> </component> </ organizer> </entry> <entry> <organizer moodCode="EVN " classCode="BATTERY"> <templateId root=" 2.16.840.1.706703.10.20.22.4.1" /> <id nullFlavor="NA&quot ; /> <code codeSystem="local" code="CBC" displayName="CBC" /> <statusCode code="completed&quot ; /> <component> <observation moodCode="EVN" classCode="OBS"> <templateId root=" 2.16.840.1.514659.10.20.22.4.2" /><id nullFlavor="NA" /&gt ; <code codeSystem="local" code="MCH" displayName="MEAN CELL HGB" /> <statusCode code=" completed"/> <effectiveTime value="822502144471" / > <value unit="pg" xsi:type="PQ" value=" 34.0" /> <interpretationCode codeSystem="local" code="*" /> <referenceRange> < observationRange> <text>27.0-33.0</text> </observationRange> </referenceRange> </observation& gt; </component> <component> <observation moodCode="EVN" classCode="OBS"> <templateId root="2.16.840.1.855275.10.20.22.4.2" /> <id nullFlavor ="NA"/> <code codeSystem="local" code=" MCHC" displayName="MEAN CELL HGB CONCENTRATION" /> & lt;statusCode code="completed" /> <effectiveTime value= "985819456440" /> <value unit="g/dl" xsi:type ="PQ" value="34.6" /> <referenceRange> <observationRange> <text>32.0-36.0</text&gt ; </observationRange> </referenceRange> </ observation> </component> <component> < observation moodCode="EVN" classCode="OBS"> < templateId root="2.16.840.1.454354.10.20.22.4.2" /> < id nullFlavor="NA" /> <code codeSystem="local&quot ; code="MCV" displayName="MEAN CELLVOLUME" /> & lt;statusCode code="completed" /> <effectiveTime value= "244632122663" /> <value unit="fl" xsi:type=& quot;PQ" value="98.3" /> <referenceRange> <observationRange> <text>80.0-100.0</text> </observationRange> </referenceRange> </ observation> </component> <component> < observation moodCode="EVN" classCode="OBS"> < templateId root="2.16.840.1.205221.10.20.22.4.2" /> < id nullFlavor="NA" /><code codeSystem="local" code=& quot;RBC" displayName="RED BLOOD CELL" /> < statusCode code="completed" /> <effectiveTime value=& quot;312424841093" /> <value unit="m/cumm" xsi: type="PQ" value="2.46" /> < interpretationCode codeSystem="local" code="*" /> <referenceRange> <observationRange> < text>4.00-6.00</text> </observationRange> &lt ;/referenceRange> </observation> </component> & lt;component> <observation moodCode="EVN" classCode=&quot ;OBS"> <templateId root="2.16.840.1.453384.10.20.22.4.2 " /> <id nullFlavor="NA" /> <code codeSystem="local" code="RDW" displayName="RED CELL DISTRIBUTION WIDTH" /> <statusCode code="completed&quot ; /> <effectiveTime value="852637497579" /> <value unit="%" xsi:type="PQ" value="13.4& quot;/> <referenceRange> <observationRange> <text>11.0-15.6</text> </observationRange > </referenceRange> </observation> </ component> <component> <observation moodCode="EVN& quot; classCode="OBS"> <templateId root=" 2.16.840.1.273852.10.20.22.4.2" /> <id nullFlavor="NA& quot; /> <code codeSystem="local" code="WBC" displayName="WHITE BLOOD CELL" /> <statusCode code=& quot;completed" /> <effectiveTime value="410081572822& quot; /> <value unit="k/cumm" xsi:type="PQ" value="6.7" /> <referenceRange> < observationRange> <text>5.0-10.0</text> & lt;/observationRange> </referenceRange> </ observation> </component> <component> < observation moodCode="EVN" classCode="OBS"> < templateId root="2.16.840.1.953918.10.20.22.4.2"/> <id nullFlavor="NA" /> <code codeSystem="local" code="HGBT" displayName="HEMOGLOBIN" /> < statusCode code="completed" /> <effectiveTime value=& quot;486484790755" /> <value unit="gm/dL" xsi:type ="PQ" value="8.4" /> <interpretationCode codeSystem="local" code="*" /> < referenceRange> <observationRange> <text>14.0-18.0 </text> </observationRange> </referenceRange& gt; </observation> </component> <component> <observation moodCode="EVN" classCode="OBS"> &lt ;templateId root="2.16.840.1.146492.10.20.22.4.2" /> < id nullFlavor="NA" /> <code codeSystem="local&quot ; code="HCTT" displayName="HEMATOCRIT" /> < statusCode code="completed" /> <effectiveTime value=& quot;487450098902" /> <value unit="%" xsi: type="PQ" value="24.1" /> < interpretationCode codeSystem="local" code="*" /> <referenceRange> <observationRange> < text>40.0-54.0</text> </observationRange> &lt ;/referenceRange> </observation> </component> & lt;component> <observation moodCode="EVN" classCode=&quot ;OBS"> <templateId root="2.16.840.1.754283.10.20.22.4.2 " /> <id nullFlavor="NA" /> <code codeSystem="local" code="PLT" displayName="PLATELET COUNT" /> <statusCode code="completed" /> <effectiveTime value="520825755528" /> <value unit="k/cumm" xsi:type="PQ" value="80" /> <interpretationCode codeSystem="local" code="*" /&gt ; <referenceRange> <observationRange> <text>150-450</text> </observationRange> </referenceRange> </observation> </component> </organizer> </entry> <entry> <organizer moodCode= "EVN" classCode="BATTERY"> <templateId root=&quot ;2.16.840.1.785962.10.20.22.4.1" /> <id nullFlavor="NA&quot ; /> <code codeSystem="local" code="METAB" displayName="METABOLIC PANEL, BASIC" /> <statusCode code=& quot;completed" /> <component> <observation moodCode="EVN" classCode="OBS"> <templateId root="2.16.840.1.722922.10..22.4.2" /> <id nullFlavor ="NA" /> <code codeSystem="local" code=" K" displayName="POTASSIUM" /> <statusCode code=& quot;completed" /> <effectiveTime value="672988496061& quot; /> <value unit="mmol/L" xsi:type="PQ" value="4.3" /> <referenceRange> < observationRange> <text>3.5-5.3</text> & lt;/observationRange> </referenceRange> </ observation> </component> <component> < observation moodCode="EVN" classCode="OBS"> < templateId root="2.16.840.1.083295.10.20.22.4.2"/> <id nullFlavor="NA" /> <code codeSystem="local" code="eGFR" displayName="EST GFR (MDRD)" /> < statusCode code="completed" /> <effectiveTime value=& quot;648886080901" /> <value unit="mL/min" xsi: type="PQ" value="> 60" /> < referenceRange> <observationRange> <text> > 59</text> </observationRange> </ referenceRange> </observation> </component> < component> <observation moodCode="EVN" classCode=" OBS"> <templateId root="2.16.840.1.389273.10.20.22.4.2& quot; /> <id nullFlavor="NA" /> <code codeSystem="local" code="GAP" displayName="ANION GAP& quot; /> <statusCode code="completed" /> & lt;effectiveTime value="126896475626" /> <value unit=& quot;mmol/L" xsi:type="PQ" value="9" /> &lt ;referenceRange> <observationRange> <text&gt ;5-15</text> </observationRange> </ referenceRange> </observation> </component> < component> <observation moodCode="EVN" classCode=" OBS"> <templateId root="2.16.840.1.749614.10..22.4.2& quot; /> <id nullFlavor="NA" /> <code codeSystem="local" code="GLU" displayName="GLUCOSE&quot ; /> <statusCode code="completed" /> < effectiveTime value="308517078970" /> <value unit=&quot ;mg/dL" xsi:type="PQ" value="109" /> < interpretationCode codeSystem="local" code="*" /> <referenceRange> <observationRange> <text&gt ;70-99</text> </observationRange> </ referenceRange> </observation> </component> < component> <observation moodCode="EVN" classCode=" OBS"> <templateId root="2.16.840.1.637341.10.20.22.4.2& quot; /> <id nullFlavor="NA" /> <code codeSystem="local" code="CA" displayName="CALCIUM&quot ; /> <statusCode code="completed" /> < effectiveTime value="096123189518" /> <value unit=&quot ;mg/dL" xsi:type="PQ" value="7.6" /> < interpretationCode codeSystem="local" code="*" /> <referenceRange> <observationRange> < text>8.5-10.1</text> </observationRange> </ referenceRange> </observation> </component> < component> <observation moodCode="EVN" classCode=" OBS"> <templateId root="2.16.840.1.129411.10.20.22.4.2& quot; /> <id nullFlavor="NA" /> <code codeSystem="local" code="BUN" displayName="BLOOD UREA NITROGEN" /> <statusCode code="completed" /> <effectiveTime value="608819093698" /> < value unit="mg/dL" xsi:type="PQ" value="16" /> <referenceRange> <observationRange> <text>7-20</text> </observationRange> & lt;/referenceRange> </observation> </component> <component> <observation moodCode="EVN" classCode=& quot;OBS"> <templateId root=" 2.16.840.1.200861.10.20.22.4.2" /> <id nullFlavor="NA& quot; /> <code codeSystem="local" code="CREAT&quot ; displayName="CREATININE" /> <statusCode code=" completed" /> <effectiveTime value="432006787139" /&gt ; <value unit="mg/dL" xsi:type="PQ" value=" 0.7" /> <interpretationCode codeSystem="local" code="*" /> <referenceRange> < observationRange> <text>0.8-1.3</text> & lt;/observationRange> </referenceRange> </ observation> </component> <component> <observation moodCode="EVN" classCode="OBS"> <templateId root="2.16.840.1.084397.10.20.22.4.2" /> <id nullFlavor ="NA" /> <code codeSystem="local" code="NA& quot; displayName="SODIUM" /> <statusCode code=" completed" /> <effectiveTime value="394726485681" /> <value unit="mmol/L" xsi:type="PQ" value=& quot;135" /> <referenceRange> < observationRange> <text>135-148</text> & lt;/observationRange> </referenceRange> </observation> </component> <component> <observation moodCode= "EVN" classCode="OBS"> <templateId root=&quot ;2.16.840.1.032961.10.20.22.4.2" /> <id nullFlavor="NA& quot; /> <code codeSystem="local" code="CL" displayName="CHLORIDE" /> <statusCodecode=" completed" /> <effectiveTime value="164068420918" /> <value unit="mmol/L" xsi:type="PQ" value=" 104" /> <referenceRange> <observationRange& gt; <text>98-110</text> </ observationRange> </referenceRange> </observation&gt ; </component> <component> <observation moodCode=& quot;EVN" classCode="OBS"> <templateId root=" 2.16.840.1.759200.10.20.22.4.2" /> <id nullFlavor="NA& quot; /> <code codeSystem="local" code="CO2" displayName="CARBON DIOXIDE" /> <statusCode code=" completed" /> <effectiveTime value="691610998151" /> <value unit="mmol/L" xsi:type="PQ" value=& quot;22" /> <referenceRange> < observationRange> <text>21-32</text> < /observationRange> </referenceRange> </observation& gt; </component> </organizer> </entry> <entry&gt ; <organizer moodCode="EVN" classCode="BATTERY"> <templateId root="2.16.840.1.474645.10.20.22.4.1" /> & lt;id nullFlavor="NA" /> <code codeSystem="local&quot ; code="CBC" displayName="CBC" /> <statusCode code="completed" /> <component> <observation moodCode="EVN" classCode="OBS"> <templateId root ="2.16.840.1.318126.10.20.22.4.2" /> <id nullFlavor=& quot;NA" /> <code codeSystem="local" code=" MCH" displayName="MEAN CELL HGB" /> <statusCode code="completed" /> <effectiveTime value=" 005778438234" /> <value unit="pg" xsi:type=" PQ" value="34.0" /> <interpretationCode codeSystem ="local" code="*" /> <referenceRange> <observationRange> <text>27.0-33.0</text> </observationRange> </referenceRange> </ observation> </component> <component> < observation moodCode="EVN" classCode="OBS"> < templateId root="2.16.840.1.127447.10.20.22.4.2" /> < id nullFlavor="NA" /> <code codeSystem="local&quot ; code="[facility]CHC" displayName="MEAN CELL HGB CONCENTRATION" /&gt ; <statusCode code="completed" /> < effectiveTime value="228547519613" /> <value unit=&quot ;g/dl" xsi:type="PQ"value="34.6" /> < referenceRange> <observationRange> <text>32.0- 36.0</text> </observationRange> </ referenceRange> </observation> </component> < component> <observation moodCode="EVN" classCode=" OBS"> <templateId root="2.16.840.1.611141.10.20.22.4.2& quot; /> <id nullFlavor="NA" /> <code codeSystem="local" code="MCV" displayName="MEAN CELL VOLUME" /> <statusCode code="completed" /> <effectiveTime value="357829411763" /> <value unit="fl" xsi:type="PQ" value="98.3" /> <referenceRange> <observationRange> < text>80.0-100.0</text> </observationRange> & lt;/referenceRange> </observation> </component> & lt;component> <observation moodCode="EVN" classCode=&quot ;OBS"> <templateId root="2.16.840.1.659047.10.20.22.4.2 " /> <id nullFlavor="NA" /> <code codeSystem="local" code="RBC" displayName="RED BLOOD CELL" /> <statusCode code="completed" /> <effectiveTime value="065425637677" /> <value unit="m/cumm" xsi:type="PQ" value="2.46" /> <interpretationCode codeSystem="local" code="*" /& gt; <referenceRange> <observationRange> <text>4.00-6.00</text> </observationRange> </referenceRange> </observation> </component&gt ; <component> <observation moodCode="EVN" classCode="OBS"> <templateId root=" 2.16.840.1.971054.10.20.22.4.2" /> <id nullFlavor="NA& quot; /> <code codeSystem="local" code="RDW" displayName="RED CELL DISTRIBUTION WIDTH" /> < statusCode code="completed" /> <effectiveTime value=& quot;493581179832" /> <value unit="%" xsi:type=& quot;PQ" value="13.4" /> <referenceRange> <observationRange> <text>11.0-15.6</text> </observationRange> </referenceRange> & lt;/observation> </component> <component> < observation moodCode="EVN" classCode="OBS"> < templateId root="2.16.840.1.351871.10.20.22.4.2" /> < id nullFlavor="NA" /> <code codeSystem="local&quot ; code="WBC" displayName="WHITE BLOOD CELL" /> & lt;statusCode code="completed" /> <effectiveTime value= "270116926263" /> <value unit="k/cumm" xsi: type="PQ" value="6.7" /> <referenceRange> <observationRange> <text>5.0-10.0</text& gt; </observationRange> </referenceRange> </ observation> </component> <component> < observation moodCode="EVN" classCode="OBS"> < templateId root="2.16.840.1.463205.10.20.22.4.2" /> < id nullFlavor="NA" /> <code codeSystem="local&quot ; code="HGBT" displayName="HEMOGLOBIN" /> < statusCode code="completed" /> <effectiveTime value=& quot;103686082228" /> <value unit="gm/dL" xsi:type ="PQ" value="8.4" /> <interpretationCode codeSystem="local" code="*" /> < referenceRange> <observationRange> <text> 14.0-18.0</text> </observationRange> </ referenceRange> </observation> </component> < component> <observation moodCode="EVN" classCode=" OBS"> <templateId root="2.16.840.1.425979.10.20.22.4.2& quot; /> <id nullFlavor="NA" /> <code codeSystem="local" code="HCTT" displayName="HEMATOCRIT& quot; /> <statusCode code="completed" /> & lt;effectiveTime value="558120422889" /> <value unit=& quot;%" xsi:type="PQ" value="24.1" /> <interpretationCode codeSystem="local" code="*" /&gt ; <referenceRange> <observationRange> <text>40.0-54.0</text> </observationRange> </referenceRange> </observation> </component&gt ; <component> <observation moodCode="EVN" classCode="OBS"> <templateId root=" 2.16.840.1.494189.10.20.22.4.2" /> <id nullFlavor="NA& quot; /> <code codeSystem="local" code="PLT" displayName="PLATELET COUNT" /> <statusCode code=" completed" /> <effectiveTime value="547333011694" /> <value unit="k/cumm" xsi:type="PQ" value=& quot;80" /> <interpretationCode codeSystem="local&quot ; code="*" /> <referenceRange> < observationRange> <text>150-450</text> &lt ;/observationRange> </referenceRange> </observation& gt; </component> </organizer> </entry> <entry> <organizer moodCode="EVN" classCode="BATTERY"> & lt;templateId root="2.16.840.1.013758.10.20.22.4.1" /> <id nullFlavor="NA" /> <code codeSystem="local" code= "GLUMON" displayName="GLUCOSE (POC)" /> < statusCode code="completed" /> <component> < observation moodCode="EVN" classCode="OBS"> < templateId root="2.16.840.1.639504.10.20.22.4.2" /> < id nullFlavor="NA" /> <code codeSystem="local&quot ; code="GLUMON" displayName="GLUCOSE (POC)" /> & lt;statusCode code="completed" /> <effectiveTime value= "244880997211" /> <value unit="mg/dL" xsi: type="PQ" value="123" /> <interpretationCode codeSystem="local" code="*" /> < referenceRange> <observationRange> <text>70-99 </text> </observationRange> </referenceRange& gt; </observation> </component> </organizer> & lt;/entry> <entry> <organizer moodCode="EVN" classCode ="BATTERY"> <templateId root=" 2.16.840.1.477944.10.20.22.4.1" /> <id nullFlavor="NA" /& gt; <code codeSystem="local" code="GLUMON" displayName="GLUCOSE (POC)" /> <statusCode code=" completed" /> <component> <observation moodCode=& quot;EVN" classCode="OBS"> <templateId root=" 2.16.840.1.859820.10.20.22.4.2" /> <id nullFlavor="NA& quot; /> <code codeSystem="local" code="GLUMON& quot; displayName="GLUCOSE (POC)" /> <statusCode code=& quot;completed" /> <effectiveTime value="[id number]&quot ; /> <value unit="mg/dL" xsi:type="PQ" value= "123" /> <interpretationCode codeSystem="local& quot; code="*" /> <referenceRange> < observationRange> <text>70-99</text> < /observationRange> </referenceRange> </observation& gt; </component> </organizer> </entry> <entry&gt ; <organizer moodCode="EVN" classCode="BATTERY"> <templateId root="[id number]" /> < id nullFlavor="NA" /> <code codeSystem="local" code="GLUMON" displayName="GLUCOSE (POC)" /> < statusCode code="completed" /> <component> < observation moodCode="EVN" classCode="OBS"> < templateId root="2.16.840.1.126272.10.20.22.4.2" /> < id nullFlavor="NA" /> <code codeSystem="local&quot ; code="GLUMON" displayName="GLUCOSE (POC)" /> & lt;statusCode code="completed" /> <effectiveTimevalue=& quot;186045346354" /> <value unit="mg/dL" xsi:type ="PQ" value="107" /> <interpretationCode codeSystem="local" code="*" /> < referenceRange> <observationRange> <text> 70-99</text> </observationRange> </ referenceRange> </observation> </component> </ organizer> </entry> <entry> <organizer moodCode="EVN& quot; classCode="BATTERY"> <templateId root=" 2.16.840.1.792971.10.20.22.4.1" /> <id nullFlavor="NA&quot ; /> <code codeSystem="local" code="GLUMON" displayName="GLUCOSE (POC)" /> <statusCode code=" completed" /> <component> <observation moodCode=& quot;EVN" classCode="OBS"> <templateId root=" 2.16.840.1.235433.10.20.22.4.2" /> <id nullFlavor="NA& quot; /> <code codeSystem="local" code="GLUMON& quot; displayName="GLUCOSE (POC)" /> <statusCode code=" completed" /> <effectiveTime value="518456559051" /> <value unit="mg/dL" xsi:type="PQ" value=& quot;107" /> <interpretationCode codeSystem="local&quot ; code="*" /> <referenceRange> < observationRange> <text>70-99</text> < /observationRange> </referenceRange> </observation& gt; </component> </organizer> </entry> <entry> <organizer moodCode="EVN" classCode="BATTERY"> <templateId root="2.16.840.1.120733.10.20.22.4.1" /> < id nullFlavor="NA" /> <code codeSystem="local" code="HELICOSCR" displayName="AB H.PYLORI SCREEN" /> <statusCode code="completed" /> <component> <observation moodCode="EVN" classCode="OBS"> <templateId root="2.16.840.1.848681.10.20.22.4.2" /> & lt;id nullFlavor="NA" /> <code codeSystem="local& quot; code="HELICOSCR" displayName="AB H.PYLORI SCREEN" /&gt ; <statusCode code="completed" /> < effectiveTime value="152294770436" /> <value unit=&quot ;" xsi:type="PQ" value="NEGATIVE" /> < referenceRange> <observationRange> <text> NEGATIVE</text> </observationRange> </ referenceRange> </observation> </component> </ organizer> </entry> <entry> <organizermoodCode="EVN& quot; classCode="BATTERY"> <templateId root=" 2.16.840.1.261770.10.20.22.4.1" /> <id nullFlavor="NA&quot ; /> <code codeSystem="local" code="HELICOSCR" displayName="AB H.PYLORI SCREEN" /> <statusCode code=" completed" /> <component> <observation moodCode=& quot;EVN" classCode="OBS"> <templateId root=" 2.16.840.1.413988.10.20.22.4.2" /> <id nullFlavor="NA& quot; /> <code codeSystem="local" code="HELICOSCR& quot; displayName="AB H.PYLORI SCREEN" /> <statusCode code=&quot ;completed" /> <effectiveTime value="916042813830&quot ; /> <value unit="" xsi:type="PQ" value=&quot ;NEGATIVE" /> <referenceRange> < observationRange> <text>NEGATIVE</text> & lt;/observationRange> </referenceRange> </ observation> </component> </organizer> </entry> & lt;entry> <organizer moodCode="EVN" classCode="BATTERY& quot;> <templateId root="2.16.840.1.229654.10.20.22.4.1" /& gt; <id nullFlavor="NA" /> <code codeSystem=" local" code="HEPLT" displayName="HEPARIN INDUCED PLATELET AB " /> <statusCode code="completed" /> < component> <observation moodCode="EVN" classCode=" OBS"> <templateId root="2.16.840.1.418902.10.20.22.4.2& quot; /> <id nullFlavor="NA" /> <code codeSystem="local" code="HEPLT" displayName="HEPARIN INDUCED PLATELET AB" /> <statusCode code="completed& quot; /> <effectiveTime value="364285835301" /> <value unit="OD" xsi:type="PQ" value="0.795& quot; /> <interpretationCode codeSystem="local" code=& quot;*" /> <referenceRange> < observationRange> <text>0.000-0.400</text> </observationRange> </referenceRange> </observation& gt; </component> </organizer> </entry> <entry&gt ; <organizer moodCode="EVN" classCode="BATTERY"> <templateId root="2.16.840.1.807774.10.20.22.4.1" /> < id nullFlavor="NA" /> <code codeSystem="local" code="HEPLT" displayName="HEPARIN INDUCED PLATELET AB" /&gt ; <statusCode code="completed" /> <component> <observation moodCode="EVN" classCode="OBS"> <templateId root="2.16.840.1.650507.10.20.22.4.2" /> <id nullFlavor="NA" /> <code codeSystem=" local" code="HEPLT" displayName="HEPARIN INDUCED PLATELET AB " /> <statusCode code="completed" /> & lt;effectiveTimevalue="458840197990" /> <value unit=& quot;OD" xsi:type="PQ" value="0.795" /> &lt ;interpretationCode codeSystem="local" code="*" /> <referenceRange> <observationRange> < text>0.000-0.400</text> </observationRange> & lt;/referenceRange> </observation> </component> &lt ;/organizer> </entry> <entry> <organizer moodCode=" EVN" classCode="BATTERY"> <templateId root=" 2.16.840.1.748565.10.20.22.4.1" /> <id nullFlavor="NA&quot ; /> <code codeSystem="local" code="GLUMON" displayName="GLUCOSE (POC)"/> <statusCode code=" completed" /> <component> <observation moodCode=& quot;EVN" classCode="OBS"> <templateId root=" 2.16.840.1.977700.10.20.22.4.2" /> <id nullFlavor="NA& quot; /> <code codeSystem="local" code="GLUMON& quot; displayName="GLUCOSE (POC)" /> <statusCode code=&quot ;completed" /> <effectiveTime value="701056325113&quot ; /> <value unit="mg/dL" xsi:type="PQ" value= "85" /> <referenceRange> < observationRange> <text>70-99</text> < /observationRange> </referenceRange> </observation& gt; </component> </organizer> </entry> <entry&gt ; <organizer moodCode="EVN" classCode="BATTERY"> <templateId root="2.16.840.1.199903.10.20.22.4.1" /> & lt;id nullFlavor="NA" /> <code codeSystem="local&quot ; code="GLUMON" displayName="GLUCOSE (POC)" />< statusCode code="completed" /> <component> < observation moodCode="EVN" classCode="OBS"> < templateId root="2.16.840.1.068675.10.20.22.4.2" /> < id nullFlavor="NA" /> <code codeSystem="local&quot ; code="GLUMON" displayName="GLUCOSE (POC)" /> & lt;statusCode code="completed" /> <effectiveTime value= "663389016553"/> <value unit="mg/dL" xsi:type ="PQ" value="85" /> <referenceRange> <observationRange> <text>70-99</text> </observationRange> </referenceRange> </ observation> </component> </organizer> </entry> & lt;entry> <organizer moodCode="EVN" classCode="BATTERY& quot;> <templateId root="2.16.840.1.501328.10.20.22.4.1" /& gt; <id nullFlavor="NA" /> <code codeSystem=" local" code="CBC" displayName="CBC" /> < statusCode code="completed" /> <component> < observation moodCode="EVN" classCode="OBS"> < templateId root="2.16.840.1.853137.10.20.22.4.2" /> < id nullFlavor="NA" /> <code codeSystem="local&quot ; code="CBCCOM" displayName="COMMENT" /> < statusCode code="completed" /> <effectiveTime value=& quot;880081443565" /> <value unit="" xsi:type=& quot;PQ" value="REVIEWED" /> <referenceRange> <observationRange> <text /> </ observationRange> </referenceRange> </observation&gt ; </component> <component> <observation moodCode ="EVN" classCode="OBS"> <templateId root=& quot;2.16.840.1.661616.10.20.22.4.2" /> <id nullFlavor=&quot ;NA" /> <code codeSystem="local" code="MCH& quot; displayName="MEANCELL HGB" /> <statusCode code=& quot;completed" /> <effectiveTime value="196589461481& quot; /> <value unit="pg" xsi:type="PQ" value ="33.7" /> <interpretationCode codeSystem="local& quot; code="*" /> <referenceRange> < observationRange> <text>27.0-33.0</text> </observationRange> </referenceRange> </ observation> </component> <component> < observation moodCode="EVN" classCode="OBS"> < templateId root="2.16.840.1.243159.10.20.22.4.2" /> < id nullFlavor="NA" /> <code codeSystem="local&quot ; code="MCHC" displayName="MEAN CELL HGB CONCENTRATION" /&gt ; <statusCode code="completed" /> < effectiveTime value="049198536217" /> <value unit=&quot ;g/dl" xsi:type="PQ" value="34.3" /> < referenceRange> <observationRange> <text> 32.0-36.0</text> </observationRange> </ referenceRange> </observation> </component> < component> <observation moodCode="EVN" classCode=" OBS"> <templateId root="2.16.840.1.938585.10.20.22.4.2& quot; /> <id nullFlavor="NA" /> <code codeSystem="local" code="MCV" displayName="MEAN CELL VOLUME" /> <statusCode code="completed" /> <effectiveTime value="979767022923" /> <value unit="fl" xsi:type="PQ" value="98.1" /> <referenceRange> <observationRange> < text>80.0-100.0</text> </observationRange> & lt;/referenceRange> </observation> </component> <component> <observation moodCode="EVN" classCode=& quot;OBS"> <templateId root=" 2.16.840.1.017326.10.20.22.4.2" /> <id nullFlavor="NA& quot; /> <code codeSystem="local" code="RBC" displayName="RED BLOOD CELL" /> <statusCode code=" completed" /> <effectiveTime value="780860630091" /> <value unit="m/cumm" xsi:type="PQ" value=" 2.42" /> <interpretationCode codeSystem="local" code="*" /> <referenceRange> < observationRange> <text>4.00-6.00</text></ observationRange> </referenceRange> </observation&gt ; </component> <component> <observation moodCode ="EVN" classCode="OBS"> <templateId root=& quot;2.16.840.1.579812.10.20.22.4.2" /> <id nullFlavor=&quot ;NA" /> <code codeSystem="local" code="RDW& quot; displayName="RED CELL DISTRIBUTION WIDTH" /> < statusCode code="completed" /> <effectiveTime value=& quot;392019773378" /> <value unit="%" xsi: type="PQ" value="13.9" /> <referenceRange&gt ; <observationRange> <text>11.0-15.6</ text> </observationRange> </referenceRange> &lt ;/observation> </component> <component> < observation moodCode="EVN" classCode="OBS"> < templateId root="2.16.840.1.969842.10.20.22.4.2" /> < id nullFlavor="NA" /> <code codeSystem="local&quot ; code="WBC" displayName="WHITE BLOOD CELL" /> & lt;statusCode code="completed" /> <effectiveTime value= "644668720952" /> <value unit="k/cumm" xsi: type="PQ" value="6.3" /> <referenceRange> <observationRange> <text>5.0-10.0</text> </observationRange> </referenceRange> & lt;/observation> </component> <component> < observation moodCode="EVN" classCode="OBS"> < templateId root="2.16.840.1.518088.10.20.22.4.2" /> < id nullFlavor="NA" /> <code codeSystem="local&quot ; code="HGBT" displayName="HEMOGLOBIN" /> < statusCode code="completed" /> <effectiveTime value=& quot;044010533252" /> <value unit="gm/dL" xsi:type ="PQ" value="8.2" /> <interpretationCode codeSystem="local" code="*" /> < referenceRange> <observationRange> <text> 14.0-18.0</text> </observationRange> </ referenceRange> </observation> </component> < component> <observation moodCode="EVN" classCode=" OBS"> <templateId root="2.16.840.1.711662.10.20.22.4.2& quot; /> <id nullFlavor="NA" /> <code codeSystem= "local" code="HCTT" displayName="HEMATOCRIT" /&gt ; <statusCode code="completed" /> < effectiveTime value="370642232238" /> <value unit=&quot ;%" xsi:type="PQ" value="23.8" /> & lt;interpretationCode codeSystem="local" code="*" /> <referenceRange> <observationRange> & lt;text>40.0-54.0</text> </observationRange> </referenceRange> </observation> </component> <component> <observation moodCode="EVN" classCode=& quot;OBS"> <templateId root=" 2.16.840.1.355029.10.20.22.4.2" /> <id nullFlavor="NA& quot; /> <code codeSystem="local" code="PLT" displayName="PLATELET COUNT" /> <statusCodecode=" completed" /> <effectiveTime value="307139837784" /> <value unit="k/cumm" xsi:type="PQ" value=" 91" /> <interpretationCode codeSystem="local" code ="*" /> <referenceRange> < observationRange> <text>150-450</text> & lt;/observationRange> </referenceRange> </ observation> </component> </organizer> </entry> & lt;entry> <organizer moodCode="EVN" classCode="BATTERY& quot;> <templateId root="2.16.840.1.947861.10.20.22.4.1" /& gt; <id nullFlavor="NA" /> <code codeSystem=" local" code="CBC" displayName="CBC" /> < statusCode code="completed" /> <component> < observation moodCode="EVN" classCode="OBS"> < templateId root="2.16.840.1.288585.10.20.22.4.2" /> < id nullFlavor="NA" /> <code codeSystem="local&quot ; code="CBCCOM" displayName="COMMENT" /> < statusCode code="completed" /><effectiveTime value=" 688552746830" /> <value unit="" xsi:type="PQ& quot; value="REVIEWED" /> <referenceRange> <observationRange> <text /> </ observationRange> </referenceRange> </observation&gt ; </component> <component> <observation moodCode ="EVN" classCode="OBS"> <templateId root=& quot;2.16.840.1.158923.10.20.22.4.2" /> <id nullFlavor=&quot ;NA" /> <code codeSystem="local" code="MCH& quot; displayName="MEAN CELL HGB" /> <statusCode code=& quot;completed" /> <effectiveTime value="482021107221& quot; /> <value unit="pg" xsi:type="PQ" value ="33.7" /> <interpretationCode codeSystem="local& quot; code="*" /> <referenceRange> < observationRange> <text>27.0-33.0</text> </observationRange> </referenceRange> </ observation> </component> <component> < observation moodCode="EVN" classCode="OBS"> < templateId root="2.16.840.1.386243.10..22.4.2" /> < id nullFlavor="NA" /> <code codeSystem="local&quot ; code="MCHC" displayName="MEAN CELL HGB CONCENTRATION" /&gt ; <statusCode code="completed" /> < effectiveTime value="454394895429" /> <value unit=&quot ;g/dl" xsi:type="PQ" value="34.3" /> < referenceRange> <observationRange> <text> 32.0-36.0</text> </observationRange> </ referenceRange> </observation> </component> < component> <observation moodCode="EVN"classCode="OBS "> <templateId root="2.16.840.1.377224.10..22.4.2& quot; /> <id nullFlavor="NA" /> <code codeSystem="local" code="MCV" displayName="MEAN CELL VOLUME" /> <statusCode code="completed" /> <effectiveTime value="654478640799" /> <value unit="fl" xsi:type="PQ" value="98.1" /> <referenceRange> <observationRange> < text>80.0-100.0</text> </observationRange> </ referenceRange> </observation> </component> < component> <observation moodCode="EVN" classCode=" OBS"> <templateId root="2.16.840.1.286240.10.20.22.4.2& quot; /> <id nullFlavor="NA" /> <code codeSystem ="local" code="RBC" displayName="RED BLOOD CELL" / > <statusCode code="completed" /> < effectiveTime value="734608568521" /> <value unit=&quot ;m/cumm" xsi:type="PQ" value="2.42" /> < interpretationCode codeSystem="local" code="*" /> <referenceRange> <observationRange> < text>4.00-6.00</text> </observationRange> &lt ;/referenceRange> </observation> </component> & lt;component> <observation moodCode="EVN" classCode=&quot ;OBS"> <templateId root="2.16.840.1.474858.10.20.22.4.2 " /> <id nullFlavor="NA" /> <code codeSystem="local" code="RDW" displayName="RED CELL DISTRIBUTION WIDTH" /> <statusCode code="completed&quot ; /> <effectiveTime value="982806185811" /> < value unit="%" xsi:type="PQ" value="13.9" /> <referenceRange> <observationRange> <text>11.0-15.6</text> </observationRange> </referenceRange> </observation> </ component> <component> <observation moodCode="EVN& quot; classCode="OBS"><templateId root=" 2.16.840.1.166228.10.20.22.4.2" /> <id nullFlavor="NA& quot; /> <code codeSystem="local" code="WBC" displayName="WHITE BLOOD CELL" /> <statusCode code=& quot;completed" /> <effectiveTime value="401488025034& quot; /> <value unit="k/cumm" xsi:type="PQ" value="6.3" /> <referenceRange> < observationRange> <text>5.0-10.0</text> & lt;/observationRange> </referenceRange> </observation> </component> <component> <observation moodCode=& quot;EVN" classCode="OBS"> <templateId root=" 2.16.840.1.524870.10.20.22.4.2" /> <id nullFlavor="NA& quot; /> <code codeSystem="local" code="HGBT&quot ; displayName="HEMOGLOBIN" /> <statusCode code=" completed" /> <effectiveTime value="359389763042" /> <value unit="gm/dL" xsi:type="PQ" value=& quot;8.2" /> <interpretationCode codeSystem="local&quot ; code="*" /> <referenceRange> < observationRange> <text>14.0-18.0</text> </observationRange> </referenceRange> </observation> </component> <component> <observation moodCode= "EVN" classCode="OBS"> <templateId root=&quot ;2.16.840.1.007108.10.20.22.4.2" /> <id nullFlavor="NA& quot; /> <code codeSystem="local" code="HCTT&quot ; displayName="HEMATOCRIT" /> <statusCode code=" completed" /> <effectiveTime value="078997446189" /> <value unit="%" xsi:type="PQ" value= "23.8" /> <interpretationCode codeSystem="local" code="*" /> <referenceRange> < observationRange> <text>40.0-54.0</text> < /observationRange> </referenceRange> </observation& gt; </component> <component> <observation moodCode="EVN" classCode="OBS"> <templateId root="2.16.840.1.435630.10.20.22.4.2" /> <id nullFlavor=&quot ;NA" /> <code codeSystem="local" code="PLT& quot; displayName="PLATELET COUNT" /> <statusCode code= "completed" /> <effectiveTime value="247047606550& quot; /> <value unit="k/cumm" xsi:type="PQ" value="91" /> <interpretationCode codeSystem=" local" code="*" /> <referenceRange> <observationRange> <text>150-450</text> </observationRange> </referenceRange> </ observation> </component> </organizer> </entry> & lt;entry> <organizer moodCode="EVN" classCode="BATTERY& quot;> <templateId root="2.16.840.1.374520.10.20.22.4.1" /& gt; <id nullFlavor="NA" /> <code codeSystem=" local" code="GLUMON" displayName="GLUCOSE (POC)" /> <statusCode code="completed" /> <component> <observation moodCode="EVN" classCode="OBS"> &lt ;templateId root="2.16.840.1.841335.10.20.22.4.2" /> < id nullFlavor="NA" /> <code codeSystem="local&quot ; code="GLUMON" displayName="GLUCOSE (POC)" /> & lt;statusCode code="completed" /> <effectiveTime value= "046135107575" /> <value unit="mg/dL" xsi: type="PQ" value="57" /> <interpretationCode codeSystem="local" code="*" /> < referenceRange> <observationRange> <text>70-99 </text> </observationRange> </referenceRange& gt; </observation> </component> </organizer> & lt;/entry> <entry> <organizer moodCode="EVN" classCode ="BATTERY"> <templateId root=" 2.16.840.1.161846.10.20.22.4.1" /> <id nullFlavor="NA&quot ; /> <code codeSystem="local" code="GLUMON" displayName="GLUCOSE (POC)" /> <statusCode code=" completed" /> <component> <observation moodCode=& quot;EVN" classCode="OBS"> <templateId root=" 2.16.840.1.171939.10.20.22.4.2" /> <id nullFlavor="NA& quot; /> <code codeSystem="local" code="GLUMON" displayName="GLUCOSE (POC)"/> <statusCode code=" completed" /> <effectiveTime value="979552898884" /> <value unit="mg/dL" xsi:type="PQ" value=& quot;57" /> <interpretationCode codeSystem="local&quot ; code="*" /> <referenceRange> < observationRange> <text>70-99</text> < /observationRange> </referenceRange> </observation& gt; </component> </organizer> </entry> <entry&gt ; <organizer moodCode="EVN" classCode="BATTERY"> <templateId root="2.16.840.1.580294.10.20.22.4.1" /> & lt;id nullFlavor="NA" /> <code codeSystem="local&quot ; code="GLUMON" displayName="GLUCOSE (POC)" /> < statusCode code="completed" /> <component> < observation moodCode="EVN" classCode="OBS"> < templateId root="2.16.840.1.833319.10.20.22.4.2" /> < id nullFlavor="NA" /> <code codeSystem="local&quot ; code="GLUMON" displayName="GLUCOSE (POC)" /> & lt;statusCode code="completed" /> <effectiveTime value= "379844157654" /> <value unit="mg/dL" xsi:type ="PQ" value="111" /> <interpretationCode codeSystem=& quot;local" code="*" /> <referenceRange> <observationRange> <text>70-99</text></ observationRange> </referenceRange> </observation&gt ; </component> </organizer> </entry> <entry> <organizer moodCode="EVN" classCode="BATTERY"> <templateId root="2.16.840.1.233810.10.20.22.4.1" /> < id nullFlavor="NA" /> <code codeSystem="local" code="GLUMON" displayName="GLUCOSE (POC)" /> < statusCode code="completed" /> <component> < observation moodCode="EVN" classCode="OBS"> < templateId root="2.16.840.1.381845.10.20.22.4.2" /> <id nullFlavor="NA" /> <code codeSystem="local" code="GLUMON" displayName="GLUCOSE (POC)" /> &lt ;statusCode code="completed" /> <effectiveTime value=& quot;754994114723" /> <value unit="mg/dL" xsi:type ="PQ" value="111" /> < interpretationCodecodeSystem="local" code="*" /> <referenceRange> <observationRange> < text>70-99</text> </observationRange> </ referenceRange> </observation> </component> </ organizer> </entry> <entry> <organizer moodCode="EVN " classCode="BATTERY"> <templateId root=" 2.16.840.1.722169.10.20.22.4.1" /> <id nullFlavor="NA&quot ; /> <code codeSystem="local" code="GLUMON" displayName="GLUCOSE (POC)" /> <statusCode code=" completed" /> <component> <observation moodCode=& quot;EVN" classCode="OBS"> <templateId root=" 2.16.840.1.302066.10.20.22.4.2" /> <id nullFlavor="NA& quot; /> <code codeSystem="local" code="GLUMON& quot; displayName="GLUCOSE (POC)" /> <statusCode code=& quot;completed" /> <effectiveTime value="817581474973& quot; /> <value unit="mg/dL" xsi:type="PQ" value="125" /> <interpretationCode codeSystem=" local" code="*" /> <referenceRange> <observationRange> <text>70-99</text> </ observationRange> </referenceRange> </observation&gt ; </component> </organizer> </entry> <entry> <organizer moodCode="EVN" classCode="BATTERY"> <templateId root="2.16.840.1.614945.10.20.22.4.1" /> < id nullFlavor="NA" /> <code codeSystem="local" code="GLUMON" displayName="GLUCOSE (POC)" /> < statusCode code="completed" /> <component> < observation moodCode="EVN" classCode="OBS"> < templateId root="2.16.840.1.654103.10.20.22.4.2" /> < id nullFlavor="NA" /> <code codeSystem="local" code=& quot;GLUMON" displayName="GLUCOSE (POC)"/> < statusCode code="completed" /> <effectiveTime value=& quot;999749948497" /> <value unit="mg/dL" xsi:type ="PQ" value="125" /> <interpretationCode codeSystem="local" code="*" /> < referenceRange> <observationRange> <text> 70-99</text> </observationRange> </ referenceRange> </observation> </component> </ organizer> </entry> <entry> <organizer moodCode="EVN " classCode="BATTERY"> <templateId root=" 2.16.840.1.230506.10.20.22.4.1" /> <id nullFlavor="NA&quot ; /> <code codeSystem="local" code="GLUMON" displayName="GLUCOSE (POC)" /> <statusCode code=" completed" /> <component> <observation moodCode=& quot;EVN" classCode="OBS"> <templateId root=" 2.16.840.1.717466.10.20.22.4.2" /> <id nullFlavor="NA& quot; /> <code codeSystem="local" code="GLUMON& quot; displayName="GLUCOSE (POC)" /> <statusCode code=& quot;completed" /> <effectiveTime value="299742439887& quot; /> <value unit="mg/dL" xsi:type="PQ" value="115" /> <interpretationCode codeSystem="local&quot ; code="*" /> <referenceRange> < observationRange> <text>70-99</text> </ observationRange> </referenceRange> </observation&gt ; </component> </organizer> </entry> <entry> <organizer moodCode="EVN" classCode="BATTERY"> <templateId root="2.16.840.1.322078.10.20.22.4.1" /> < id nullFlavor="NA" /> <code codeSystem="local" code="GLUMON" displayName="GLUCOSE (POC)" /> < statusCode code="completed" /> <component> < observation moodCode="EVN" classCode="OBS"> < templateId root="2.16.840.1.087707.10.20.22.4.2" /> <id nullFlavor="NA" /> <code codeSystem="local" code="GLUMON" displayName="GLUCOSE (POC)" /> &lt ;statusCode code="completed" /> <effectiveTime value=& quot;099182496600" /> <value unit="mg/dL" xsi:type ="PQ" value="115" /> <interpretationCode codeSystem="local" code="*" /> < referenceRange> <observationRange> <text> 70-99</text> </observationRange> </ referenceRange> </observation> </component> </ organizer> </entry> <entry> <organizer moodCode="EVN " classCode="BATTERY"> <templateId root=" 2.16.840.1.220825.10.20.22.4.1" /> <id nullFlavor="NA&quot ; /> <code codeSystem="local" code="CBC" displayName="CBC" /> <statusCode code="completed&quot ; /> <component> <observation moodCode="EVN" classCode="OBS"> <templateId root=" 2.16.840.1.065735.10.20.22.4.2" /> <id nullFlavor="NA& quot; /> <code codeSystem="local" code="MCH" displayName="MEAN CELLHGB" /> <statusCode code=" completed" /> <effectiveTime value="874352970307" /> <value unit="pg" xsi:type="PQ" value=&quot ;33.6" /> <interpretationCode codeSystem="local" code="*" /> <referenceRange> < observationRange> <text>27.0-33.0</text> </observationRange> </referenceRange> </observation&gt ; </component> <component> <observation moodCode ="EVN" classCode="OBS"> <templateId root=& quot;[id number]" /> <id nullFlavor=&quot ;NA" /> <code codeSystem="local" code="MCHC& quot; displayName="MEAN CELL HGB CONCENTRATION" /> < statusCode code="completed" /> <effectiveTime value=& quot;[id number]" /> <value unit="g/dl" xsi:type= "PQ" value="33.8" /> <referenceRange> <observationRange> <text>32.0-36.0</text&gt ; </observationRange> </referenceRange> </ observation> </component> <component> < observation moodCode="EVN" classCode="OBS"> < templateId root="[id number]" /> < id nullFlavor="NA" /> <code codeSystem="local&quot ; code="MCV" displayName="MEAN CELL VOLUME" /> & lt;statusCode code="completed" /> <effectiveTime value= "878283624596" /> <value unit="fl" xsi:type=& quot;PQ" value="99.6" /> <referenceRange> <observationRange> <text>80.0-100.0</text> </observationRange> </referenceRange> </ observation> </component> <component> < observation moodCode="EVN" classCode="OBS"> < templateId root="2.16.840.1.380890.10.20.22.4.2" /> < id nullFlavor="NA" /> <code codeSystem="local&quot ; code="RBC" displayName="RED BLOOD CELL" /> &lt ;statusCode code="completed" /> <effectiveTime value=& quot;531691539481" /> <value unit="m/cumm" xsi: type="PQ" value="2.44" /> < interpretationCode codeSystem="local" code="*" /> <referenceRange> <observationRange> < text>4.00-6.00</text> </observationRange> &lt ;/referenceRange> </observation> </component> & lt;component> <observation moodCode="EVN" classCode=&quot ;OBS"> <templateId root="2.16.840.1.149043.10.20.22.4.2 " /> <id nullFlavor="NA" /> <code codeSystem="local" code="RDW" displayName="RED CELL DISTRIBUTION WIDTH" /> <statusCode code="completed&quot ; /> <effectiveTime value="298039175379" /> <value unit="%" xsi:type="PQ" value="14.0& quot; /> <referenceRange> <observationRange> <text>11.0-15.6</text> </ observationRange> </referenceRange> </observation&gt ; </component> <component> <observation moodCode ="EVN" classCode="OBS"> <templateId root=& quot;2.16.840.1.352013.10.20.22.4.2" /> <id nullFlavor=&quot ;NA" /> <code codeSystem="local" code="WBC& quot;displayName="WHITE BLOOD CELL" /> <statusCode code ="completed" /> <effectiveTime value="674854538207 " /> <value unit="k/cumm" xsi:type="PQ" value="6.5" /> <referenceRange> < observationRange> <text>5.0-10.0</text> & lt;/observationRange> </referenceRange> </ observation> </component><component> <observation moodCode="EVN" classCode="OBS"> <templateId root=& quot;2.16.840.1.033783.10.20.22.4.2" /> <id nullFlavor=&quot ;NA" /> <code codeSystem="local" code="HGBT& quot; displayName="HEMOGLOBIN" /> <statusCode code=& quot;completed" /> <effectiveTime value="236189655038& quot; /> <value unit="gm/dL" xsi:type="PQ" value="8.2" /> <interpretationCode codeSystem=" local" code="*" /> <referenceRange> <observationRange> <text>14.0-18.0</text> &lt ;/observationRange> </referenceRange> </observation& gt; </component> <component> <observation moodCode="EVN" classCode="OBS"> <templateId root="2.16.840.1.095037.10.20.22.4.2" /> <id nullFlavor ="NA" /> <code codeSystem="local" code=" HCTT" displayName="HEMATOCRIT" /> <statusCode code=& quot;completed" /> <effectiveTime value="756565143208& quot; /> <value unit="%" xsi:type="PQ&quot ; value="24.3" /> <interpretationCode codeSystem=" local" code="*" /> <referenceRange> & lt;observationRange> <text>40.0-54.0</text> </observationRange> </referenceRange> </ observation> </component> <component> < observation moodCode="EVN" classCode="OBS"> < templateId root="2.16.840.1.791780.10.20.22.4.2" /> < id nullFlavor="NA" /> <code codeSystem="local&quot ; code="PLT" displayName="PLATELET COUNT" /> &lt ;statusCode code="completed" /> <effectiveTime value=& quot;910895409114" /><value unit="k/cumm" xsi:type="PQ " value="116" /> <interpretationCode codeSystem=& quot;local" code="*" /> <referenceRange> <observationRange> <text>150-450</text> </observationRange> </referenceRange> </ observation> </component> </organizer> </entry> & lt;entry> <organizer moodCode="EVN" classCode="BATTERY& quot;> <templateId root="2.16.840.1.895923.10.20.22.4.1" /& gt; <id nullFlavor="NA" /> <code codeSystem=" local" code="CBC" displayName="CBC" /> < statusCode code="completed" /> <component> < observation moodCode="EVN" classCode="OBS"> < templateId root="2.16.840.1.245843.10.20.22.4.2" /> < id nullFlavor="NA" /> <code codeSystem="local&quot ; code="MCH" displayName="MEAN CELL HGB" /> < statusCode code="completed" /> <effectiveTime value=& quot;732254230930" /> <value unit="pg" xsi:type=& quot;PQ" value="33.6" /> <interpretationCode codeSystem="local" code="*" /> < referenceRange> <observationRange> <text>27.0 -33.0</text> </observationRange> </ referenceRange> </observation> </component> < component> <observation moodCode="EVN" classCode=" OBS"> <templateId root="2.16.840.1.136198.10.20.22.4.2& quot; /> <id nullFlavor="NA" /> <code codeSystem="local" code="MCHC" displayName="MEAN CELL HGB CONCENTRATION" /> <statusCode code="completed&quot ; /> <effectiveTime value="729268899300" /> <value unit="g/dl" xsi:type="PQ"value="33.8" /> <referenceRange> <observationRange> <text>32.0-36.0</text> </observationRange> </referenceRange> </observation> </component&gt ; <component> <observation moodCode="EVN" classCode="OBS"> <templateId root=" 2.16.840.1.176489.10.20.22.4.2" /> <id nullFlavor="NA& quot; /> <code codeSystem="local" code="MCV" displayName="MEAN CELL VOLUME" /> <statusCode code=& quot;completed" /> <effectiveTime value="598318482560& quot; /> <value unit="fl" xsi:type="PQ" value ="99.6" /> <referenceRange> < observationRange> <text>80.0-100.0</text> </observationRange> </referenceRange> </ observation> </component> <component> < observation moodCode="EVN" classCode="OBS"> < templateId root="2.16.840.1.038877.10.20.22.4.2" /> < id nullFlavor="NA" /> <code codeSystem="local&quot ; code="RBC" displayName="RED BLOOD CELL" /> &lt ;statusCode code="completed" /> <effectiveTime value=& quot;614837425022" /> <value unit="m/cumm" xsi: type="PQ" value="2.44" /> < interpretationCode codeSystem="local" code="*" /> <referenceRange> <observationRange> < text>4.00-6.00</text> </observationRange> &lt ;/referenceRange> </observation> </component> < component> <observation moodCode="EVN" classCode=" OBS"> <templateId root="2.16.840.1.818752.10.20.22.4.2& quot; /> <id nullFlavor="NA" /> <code codeSystem="local" code="RDW" displayName="RED CELL DISTRIBUTION WIDTH" /> <statusCode code="completed&quot ; /> <effectiveTime value="195251920770" /> < value unit="%" xsi:type="PQ" value="14.0" /> <referenceRange> <observationRange> <text>11.0-15.6</text> </observationRange> </referenceRange> </observation> </ component> <component> <observation moodCode="EVN& quot; classCode="OBS"> <templateId root=" 2.16.840.1.922748.10.20.22.4.2" /> <id nullFlavor="NA& quot; /> <code codeSystem="local" code="WBC" displayName="WHITE BLOOD CELL" /> <statusCode code=& quot;completed" /> <effectiveTime value="814876240940& quot; /> <value unit="k/cumm" xsi:type="PQ" value="6.5" /> <referenceRange> < observationRange> <text>5.0-10.0</text> </ observationRange> </referenceRange> </observation&gt ; </component> <component> <observation moodCode ="EVN" classCode="OBS"> <templateId root=& quot;2.16.840.1.694408.10.20.22.4.2" /> <id nullFlavor=&quot ;NA" /> <code codeSystem="local" code="HGBT& quot; displayName="HEMOGLOBIN" /> <statusCode code=& quot;completed" /> <effectiveTime value="490807257559& quot; /> <value unit="gm/dL" xsi:type="PQ" value="8.2" /> <interpretationCode codeSystem=" local" code="*" /> <referenceRange> <observationRange> <text>14.0-18.0</text> </observationRange> </referenceRange> </ observation> </component> <component> < observation moodCode="EVN" classCode="OBS"> < templateId root="2.16.840.1.586236.10.20.22.4.2" /> < id nullFlavor="NA" /> <code codeSystem="local&quot ; code="HCTT" displayName="HEMATOCRIT" /> < statusCode code="completed" /> <effectiveTime value=& quot;203582819784" /> <value unit="%" xsi: type="PQ" value="24.3" /> < interpretationCode codeSystem="local" code="*" /> <referenceRange> <observationRange> < text>40.0-54.0</text> </observationRange> &lt ;/referenceRange> </observation> </component> & lt;component> <observation moodCode="EVN" classCode=&quot ;OBS"> <templateId root="2.16.840.1.830952.10.20.22.4.2 " /> <id nullFlavor="NA" /> <code codeSystem="local" code="PLT" displayName="PLATELET COUNT" /> <statusCode code="completed" /> <effectiveTime value="815732164925" /> <value unit="k/cumm" xsi:type="PQ" value="116" /> <interpretationCode codeSystem="local" code="*" /& gt; <referenceRange> <observationRange> <text>150-450</text> </observationRange> </referenceRange> </observation> </component> </organizer> </entry> <entry> <organizer moodCode=& quot;EVN" classCode="BATTERY"> <templateId root=" 2.16.840.1.721745.10.20.22.4.1" /> <id nullFlavor="NA&quot ; /> <code codeSystem="local" code="GLUMON" displayName="GLUCOSE (POC)" /> <statusCode code=" completed" /> <component> <observation moodCode=& quot;EVN" classCode="OBS"> <templateId root=" 2.16.840.1.243905.10.20.22.4.2"/> <id nullFlavor="NA& quot; /> <code codeSystem="local"code="GLUMON&quot ; displayName="GLUCOSE (POC)" /> <statusCode code=&quot ;completed" /> <effectiveTime value="892724444281&quot ; /> <value unit="mg/dL" xsi:type="PQ" value= "123" /> <interpretationCode codeSystem="local& quot; code="*" /> <referenceRange> < observationRange> <text>70-99</text> < /observationRange> </referenceRange> </observation& gt; </component></organizer> </entry> <entry> <organizer moodCode="EVN" classCode="BATTERY"> & lt;templateId root="2.16.840.1.446060.10.20.22.4.1" /> <id nullFlavor="NA" /> <code codeSystem="local" code= "GLUMON" displayName="GLUCOSE (POC)" /> < statusCode code="completed" /> <component> < observation moodCode="EVN" classCode="OBS"> < templateId root="2.16.840.1.691192.10.20.22.4.2" /> < id nullFlavor="NA" /> <code codeSystem="local&quot ; code="GLUMON" displayName="GLUCOSE (POC)" /> & lt;statusCode code="completed" /> <effectiveTime value=& quot;409214671842" /> <value unit="mg/dL" xsi:type ="PQ" value="123" /> <interpretationCode codeSystem="local" code="*" /> < referenceRange> <observationRange> <text> 70-99</text> </observationRange> </ referenceRange> </observation> </component> </ organizer> </entry> <entry> <organizer moodCode="EVN " classCode="BATTERY"> <templateId root=" 2.16.840.1.090229.10.20.22.4.1" /> <id nullFlavor="NA&quot ; /> <code codeSystem="local" code="GLUMON" displayName="GLUCOSE (POC)" /> <statusCode code=" completed" /> <component> <observation moodCode=& quot;EVN" classCode="OBS"> <templateId root=" 2.16.840.1.566178.10.20.22.4.2" /> <id nullFlavor="NA& quot; /> <code codeSystem="local" code="GLUMON& quot; displayName="GLUCOSE(POC)" /> <statusCode code=& quot;completed" /> <effectiveTime value="148502244213& quot; /> <value unit="mg/dL" xsi:type="PQ" value="124" /> <interpretationCode codeSystem=" local" code="*" /> <referenceRange> <observationRange> <text>70-99</text> </observationRange> </referenceRange> </observation&gt ; </component> </organizer> </entry> <entry> <organizer moodCode="EVN" classCode="BATTERY"> <templateId root="2.16.840.1.568928.10.20.22.4.1" /> < id nullFlavor="NA" /> <code codeSystem="local" code="GLUMON" displayName="GLUCOSE (POC)" /> < statusCode code="completed" /> <component> < observationmoodCode="EVN" classCode="OBS"> < templateId root="2.16.840.1.379296.10.20.22.4.2" /> < id nullFlavor="NA" /> <code codeSystem="local&quot ; code="GLUMON" displayName="GLUCOSE (POC)" /> < statusCode code="completed" /> <effectiveTime value=& quot;449969442729" /> <value unit="mg/dL" xsi:type ="PQ" value="124"/> <interpretationCode codeSystem="local" code="*" /><referenceRange> <observationRange> <text>70-99</text> </observationRange> </referenceRange> </ observation> </component> </organizer> </entry> &lt ;entry> <organizer moodCode="EVN" classCode="BATTERY& quot;> <templateId root="2.16.840.1.952764.10.20.22.4.1" /& gt; <id nullFlavor="NA" /> <code codeSystem=" local" code="GLUMON" displayName="GLUCOSE (POC)" /> <statusCode code="completed" /> <component> <observation moodCode="EVN"classCode="OBS"> <templateId root="2.16.840.1.631083.10.20.22.4.2" /> <id nullFlavor="NA" /> <code codeSystem=" local" code="GLUMON" displayName="GLUCOSE (POC)" /> <statusCode code="completed" /> < effectiveTime value="316482525010" /> <value unit=&quot ;mg/dL" xsi:type="PQ" value="111" /> < interpretationCode codeSystem="local" code="*" /> <referenceRange> <observationRange> <text >70-99</text> </observationRange> </ referenceRange> </observation> </component> </ organizer> </entry> <entry> <organizer moodCode="EVN " classCode="BATTERY"> <templateId root=" 2.16.840.1.550492.10.20.22.4.1" /> <id nullFlavor="NA" / > <code codeSystem="local" code="GLUMON" displayName="GLUCOSE (POC)" /> <statusCode code=" completed" /> <component> <observation moodCode=& quot;EVN" classCode="OBS"> <templateId root=" 2.16.840.1.181705.10.20.22.4.2" /> <id nullFlavor="NA& quot; /> <code codeSystem="local" code="GLUMON& quot;displayName="GLUCOSE (POC)" /> <statusCode code=& quot;completed" /> <effectiveTime value="703944944809& quot; /> <value unit="mg/dL" xsi:type="PQ" value="111" /> <interpretationCode codeSystem=" local" code="*" /> <referenceRange> <observationRange> <text>70-99</text> </observationRange> </referenceRange> </ observation> </component> </organizer> </entry> & lt;entry> <organizer moodCode="EVN" classCode="BATTERY& quot;> <templateId root="2.16.840.1.517790.10.20.22.4.1" /& gt; <id nullFlavor="NA" /> <code codeSystem=" local" code="GLUMON" displayName="GLUCOSE (POC)" /> <statusCode code="completed" /> <component> <observation moodCode="EVN" classCode="OBS"> <templateId root="2.16.840.1.663433.10.20.22.4.2" /> <id nullFlavor="NA" /> <code codeSystem=" local" code="GLUMON" displayName="GLUCOSE (POC)" /> <statusCode code="completed" /> < effectiveTime value="013136125202" /> <value unit=&quot ;mg/dL" xsi:type="PQ" value="104" /> < interpretationCode codeSystem="local" code="*" /> <referenceRange> <observationRange> < text>70-99</text> </observationRange> </ referenceRange> </observation> </component> </ organizer> </entry> <entry> <organizer moodCode="EVN " classCode="BATTERY"> <templateId root=" 2.16.840.1.016740.10.20.22.4.1" /> <id nullFlavor="NA&quot ; /> <code codeSystem="local" code="GLUMON" displayName="GLUCOSE (POC)" /> <statusCode code=" completed" /> <component> <observation moodCode=& quot;EVN" classCode="OBS"> <templateId root=" 2.16.840.1.012873.10.20.22.4.2" /> <id nullFlavor="NA& quot; /> <code codeSystem="local" code="GLUMON& quot; displayName="GLUCOSE (POC)" /> <statusCode code=" completed" /> <effectiveTime value="637093958400" /> <value unit="mg/dL" xsi:type="PQ" value=& quot;104" /> <interpretationCode codeSystem="local&quot ; code="*" /> <referenceRange> < observationRange> <text>70-99</text> < /observationRange> </referenceRange> </observation& gt; </component> </organizer> </entry> <entry> <organizer moodCode="EVN" classCode="BATTERY"> <templateId root="2.16.840.1.941635.10.20.22.4.1" /> &lt ;id nullFlavor="NA" /> <code codeSystem="local" code="GLUMON" displayName="GLUCOSE (POC)" /> < statusCode code="completed" /> <component> < observation moodCode="EVN" classCode="OBS"> < templateId root="2.16.840.1.338194.10..22.4.2" /> < id nullFlavor="NA" /> <code codeSystem="local&quot ; code="GLUMON" displayName="GLUCOSE (POC)" /> & lt;statusCode code="completed" /> <effectiveTime value= "243608283619" /> <value unit="mg/dL" xsi: type="PQ" value="96" /> <referenceRange> <observationRange> <text>70-99</text> </observationRange> </referenceRange> </ observation> </component> </organizer> </entry> & lt;entry> <organizer moodCode="EVN" classCode="BATTERY& quot;> <templateId root="2.16.840.1.627844.10.20.22.4.1" /& gt; <id nullFlavor="NA" /> <code codeSystem=" local"code="CBC" displayName="CBC" /> < statusCode code="completed" /> <component> < observation moodCode="EVN" classCode="OBS"> < templateId root="2.16.840.1.435976.10.20.22.4.2" /> < idnullFlavor="NA" /> <code codeSystem="local&quot ; code="MCH" displayName="MEAN CELL HGB" /> < statusCode code="completed" /> <effectiveTime value=&quot ;714123759861" /> <value unit="pg" xsi:type=" PQ" value="33.9" /> <interpretationCode codeSystem ="local" code="*" /> <referenceRange> <observationRange> <text>27.0-33.0</text&gt ; </observationRange> </referenceRange> & lt;/observation> </component> <component> < observation moodCode="EVN" classCode="OBS"> < templateId root="2.16.840.1.004000.10.20.22.4.2" /> < id nullFlavor="NA" /> <code codeSystem="local" code="MCHC" displayName="MEAN CELL HGB CONCENTRATION" /> <statusCode code="completed" /> < effectiveTime value="517609094689" /> <value unit=&quot ;g/dl" xsi:type="PQ" value="33.9" /> < referenceRange> <observationRange> <text> 32.0-36.0</text> </observationRange> </ referenceRange> </observation> </component> < component> <observation moodCode="EVN" classCode="OBS& quot;> <templateId root="2.16.840.1.163886.10.20.22.4.2&quot ; /> <id nullFlavor="NA" /> <code codeSystem="local" code="MCV" displayName="MEAN CELL VOLUME" /> <statusCode code="completed" /> <effectiveTime value="036926488728" /> <value unit="fl" xsi:type="PQ" value="99.9" /> <referenceRange> <observationRange> <text>80.0 -100.0</text> </observationRange> </ referenceRange> </observation> </component> < component> <observation moodCode="EVN" classCode=" OBS"> <templateId root="2.16.840.1.444135.10.20.22.4.2& quot; /> <id nullFlavor="NA" /> <code codeSystem="local" code="RBC" displayName="RED BLOOD CELL" /> <statusCode code="completed" /> & lt;effectiveTime value="" /> <value unit=& quot;m/cumm" xsi:type="PQ" value="2.68" /> <interpretationCode codeSystem="local" code="*" /> <referenceRange> <observationRange> < text>4.00-6.00</text> </observationRange> &lt ;/referenceRange> </observation> </component> & lt;component> <observation moodCode="EVN" classCode=&quot ;OBS"> <templateId root="2.16.840.1.019062.10.20.22.4.2 " /> <id nullFlavor="NA" /> <code codeSystem="local" code="RDW" displayName="RED CELL DISTRIBUTION WIDTH" /> <statusCode code="completed&quot ; /> <effectiveTime value="009464139486" /> <value unit="%" xsi:type="PQ" value="14.0& quot; /> <referenceRange> <observationRange> <text>11.0-15.6</text> </observationRange& gt; </referenceRange> </observation> </ component> <component> <observation moodCode="EVN& quot; classCode="OBS"> <templateId root=" 2.16.840.1.008221.10.20.22.4.2" /> <id nullFlavor="NA& quot; /> <code codeSystem="local" code="WBC" displayName="WHITE BLOOD CELL" /> <statusCode code=& quot;completed" /> <effectiveTime value="351445825667& quot; /> <value unit="k/cumm" xsi:type="PQ" value=& quot;8.2" /> <referenceRange> < observationRange> <text>5.0-10.0</text> & lt;/observationRange> </referenceRange> </ observation> </component> <component> < observation moodCode="EVN" classCode="OBS"> < templateId root="2.16.840.1.174687.10.20.22.4.2" /> <id nullFlavor="NA" /> <code codeSystem="local" code="HGBT" displayName="HEMOGLOBIN" /> < statusCode code="completed" /> <effectiveTime value=& quot;083038054419" /> <value unit="gm/dL" xsi:type ="PQ" value="9.1" /> < interpretationCodecodeSystem="local" code="*" /> <referenceRange> <observationRange> < text>14.0-18.0</text> </observationRange> &lt ;/referenceRange> </observation> </component> & lt;component> <observation moodCode="EVN" classCode=&quot ;OBS"> <templateId root="2.16.840.1.975486.10.20.22.4.2 " /> <id nullFlavor="NA" /> <code codeSystem="local" code="HCTT" displayName="HEMATOCRIT& quot; /> <statusCode code="completed" /> & lt;effectiveTime value="506517742879" /> <value unit=& quot;%" xsi:type="PQ" value="26.8" /> <interpretationCode codeSystem="local" code="*" /&gt ; <referenceRange> <observationRange> < text>40.0-54.0</text> </observationRange> &lt ;/referenceRange> </observation> </component> & lt;component> <observation moodCode="EVN" classCode=&quot ;OBS"> <templateId root="2.16.840.1.114407.10.20.22.4.2 " /> <id nullFlavor="NA" /> <code codeSystem="local" code="PLT" displayName="PLATELET COUNT" /> <statusCode code="completed" /> <effectiveTime value="827159971264" /> <value unit ="k/cumm" xsi:type="PQ" value="142" /> <interpretationCode codeSystem="local" code="*" /> <referenceRange> <observationRange> &lt ;text>150-450</text> </observationRange> < /referenceRange> </observation> </component> </ organizer> </entry> <entry> <organizermoodCode="EVN& quot; classCode="BATTERY"> <templateId root=" 2.16.840.1.589496.10.20.22.4.1" /> <id nullFlavor="NA&quot ; /> <code codeSystem="local" code="METAB" displayName="METABOLIC PANEL, BASIC" /> <statusCode code=& quot;completed" /> <component> <observation moodCode="EVN" classCode="OBS"> <templateId root="2.16.840.1.657583.10.20.22.4.2" /> <id nullFlavor ="NA" /> <code codeSystem="local" code=" K" displayName="POTASSIUM" /> <statusCode code=& quot;completed" /> <effectiveTime value="278243347885& quot; /> <value unit="mmol/L" xsi:type="PQ" value=& quot;4.4" /> <referenceRange> < observationRange> <text>3.5-5.3</text> & lt;/observationRange> </referenceRange> </ observation> </component> <component> < observation moodCode="EVN" classCode="OBS"> < templateId root="2.16.840.1.241882.10.20.22.4.2" /> <id nullFlavor="NA" /> <code codeSystem="local" code="eGFR" displayName="EST GFR (MDRD)" /> < statusCode code="completed" /> <effectiveTime value=& quot;110090668806" /> <value unit="mL/min" xsi: type="PQ" value="> 60" /> < referenceRange> <observationRange> <text> > 59</text> </observationRange> </ referenceRange> </observation> </component> < component> <observation moodCode="EVN" classCode=" OBS"> <templateId root="2.16.840.1.851450.10.20.22.4.2& quot; /> <id nullFlavor="NA" /> <code codeSystem="local" code="GAP" displayName="ANION GAP& quot; /> <statusCode code="completed" /> & lt;effectiveTime value="289112517494" /> <value unit=& quot;mmol/L" xsi:type="PQ" value="10" /> & lt;referenceRange> <observationRange> <text>5- 15</text> </observationRange> </ referenceRange> </observation> </component>< component> <observation moodCode="EVN" classCode=" OBS"> <templateId root="2.16.840.1.890598.10.20.22.4.2" /> <id nullFlavor="NA" /> <code codeSystem="local" code="GLU" displayName="GLUCOSE&quot ; /> <statusCode code="completed" /> < effectiveTime value="273332814414" /> <value unit=&quot ;mg/dL" xsi:type="PQ" value="99" /> < referenceRange> <observationRange> <text> 70-99</text> </observationRange> </ referenceRange> </observation> </component> < component> <observation moodCode="EVN" classCode=" OBS"> <templateId root="2.16.840.1.600712.10.20.22.4.2& quot; /> <id nullFlavor="NA" /> <code codeSystem ="local" code="CA" displayName="CALCIUM" /> <statusCode code="completed" /> <effectiveTime value="857899911854" /> <value unit="mg/dL" xsi:type="PQ" value="8.4" /> < interpretationCode codeSystem="local" code="*" /> < referenceRange> <observationRange> <text> 8.5-10.1</text> </observationRange> </ referenceRange> </observation> </component> < component> <observation moodCode="EVN"classCode="OBS "> <templateId root="2.16.840.1.677027.10.20.22.4.2& quot; /> <id nullFlavor="NA" /> <code codeSystem="local" code="BUN" displayName="BLOOD UREA NITROGEN" /> <statusCode code="completed" /> <effectiveTime value="758083967276" /><value unit=& quot;mg/dL" xsi:type="PQ" value="14" /> &lt ;referenceRange> <observationRange> <text&gt ;7-20</text> </observationRange> </referenceRange&gt ; </observation> </component> <component> <observation moodCode="EVN" classCode="OBS"> <templateId root="2.16.840.1.935313.10.20.22.4.2" />< id nullFlavor="NA" /> <code codeSystem="local&quot ; code="CREAT" displayName="CREATININE" /> < statusCode code="completed" /> <effectiveTime value=& quot;574431040688" /> <value unit="mg/dL" xsi:type ="PQ" value="0.8" /> <referenceRange> & lt;observationRange> <text>0.8-1.3</text> </observationRange> </referenceRange> </ observation> </component><component> <observation moodCode="EVN" classCode="OBS"> <templateId root=& quot;[id number]" /> <id nullFlavor=&quot ;NA" /> <code codeSystem="local" code="NA& quot; displayName="SODIUM" /> <statusCode code=" completed" /> <effectiveTime value="[id number]" /> <value unit="mmol/L" xsi:type="PQ" value=& quot;134" /> <interpretationCode codeSystem="local&quot ; code="*" /> <referenceRange> < observationRange> <text>135-148</text> </ observationRange> </referenceRange> </observation&gt ; </component> <component> <observation moodCode ="EVN" classCode="OBS"> <templateId root=& quot;2.16.840.1.769962.10.20.22.4.2" /> <id nullFlavor=&quot ;NA" /> <code codeSystem="local" code="CL& quot; displayName="CHLORIDE" /> <statusCode code=" completed" /> <effectiveTime value="661859241894" /> <value unit="mmol/L" xsi:type="PQ" value=& quot;101" /> <referenceRange> < observationRange> <text>98-110</text> &lt ;/observationRange> </referenceRange> </observation& gt; </component> <component> <observation moodCode="EVN" classCode="OBS"> <templateId root="2.16.840.1.264563.10.20.22.4.2" /> <id nullFlavor ="NA" /> <code codeSystem="local" code=" CO2" displayName="CARBON DIOXIDE" /> <statusCode code="completed" /> <effectiveTime value=" 835307657753" /> <value unit="mmol/L" xsi:type=& quot;PQ" value="23" /> <referenceRange> <observationRange> <text>21-32</text> < /observationRange> </referenceRange> </observation& gt; </component> </organizer> </entry> <entry&gt ; <organizer moodCode="EVN" classCode="BATTERY"> <templateId root="2.16.840.1.778494.10.20.22.4.1" /> & lt;id nullFlavor="NA" /> <code codeSystem="local" code="PHOS" displayName="PHOSPHORUS" /> < statusCode code="completed" /> <component> < observation moodCode="EVN" classCode="OBS"> < templateId root="2.16.840.1.262328.10.20.22.4.2" /> <id nullFlavor="NA" /> <code codeSystem="local" code="PHOS" displayName="PHOSPHORUS" /> < statusCode code="completed" /> <effectiveTime value=& quot;290538945973" /> <value unit="mg/dL" xsi:type ="PQ" value="3.6" /> <referenceRange> & lt;observationRange> <text>2.5-4.9</text> </observationRange> </referenceRange> </ observation> </component> </organizer> </entry> & lt;entry> <organizer moodCode="EVN" classCode="BATTERY& quot;> <templateId root="2.16.840.1.003966.10.20.22.4.1" /& gt; <id nullFlavor="NA" /> <code codeSystem="local& quot; code="MAG" displayName="MAGNESIUM" /> < statusCode code="completed" /><component> < observation moodCode="EVN" classCode="OBS"> < templateId root="2.16.840.1.210450.10.20.22.4.2" /> < id nullFlavor="NA" /> <code codeSystem="local&quot ; code="MAG" displayName="MAGNESIUM" /> < statusCode code="completed" /> <effectiveTime value=& quot;417952054987" /> <value unit="mg/dL" xsi:type ="PQ" value="1.9" /> <referenceRange> <observationRange> <text>1.8-2.4</text> </observationRange> </referenceRange> &lt ;/observation> </component> </organizer> </entry> <entry> <organizer moodCode="EVN" classCode=" BATTERY"> <templateId root="2.16.840.1.220681.10.20.22.4.1& quot; /> <id nullFlavor="NA" /> <code codeSystem ="local" code="GLUMON" displayName="GLUCOSE (POC)&quot ; /> <statusCode code="completed" /> <component& gt; <observation moodCode="EVN" classCode="OBS"&gt ; <templateId root="2..840.1.299280.10.20.22.4.2" /> <id nullFlavor="NA" /> <code codeSystem=& quot;local" code="GLUMON" displayName="GLUCOSE (POC)" / > <statusCode code="completed" /> < effectiveTime value="144832191249" /> <value unit=&quot ;mg/dL" xsi:type="PQ" value="96" /> < referenceRange> <observationRange> <text>70- 99</text> </observationRange> </ referenceRange> </observation> </component> </ organizer> </entry> <entry> <organizer moodCode="EVN& quot; classCode="BATTERY"> <templateId root=" 2.16.840.1.820074.10.20.22.4.1" /> <id nullFlavor="NA&quot ; /> <code codeSystem="local" code="CBC" displayName="CBC" /> <statusCode code="completed&quot ; /> <component> <observation moodCode="EVN" classCode="OBS"> <templateId root=" 2..840.1.369639.10.20.22.4.2" /> <id nullFlavor="NA& quot; /> <code codeSystem="local" code="MCH" displayName="MEAN CELL HGB" /> <statusCode code="completed& quot; /> <effectiveTime value="873236593107" /> <value unit="pg" xsi:type="PQ" value="33.9& quot; /> <interpretationCode codeSystem="local" code=& quot;*" /> <referenceRange> < observationRange> <text>27.0-33.0</text> </observationRange> </referenceRange> </ observation> </component> <component> < observation moodCode="EVN" classCode="OBS"> < templateId root="2.16.840.1.145320.10.20.22.4.2" /> < id nullFlavor="NA" /> <code codeSystem="local&quot ; code="MCHC" displayName="MEAN CELL HGB CONCENTRATION" /&gt ; <statusCode code="completed" /> < effectiveTime value="147567990680" /> <value unit="g/dl& quot; xsi:type="PQ" value="33.9" /> < referenceRange> <observationRange> <text> 32.0-36.0</text> </observationRange> </ referenceRange> </observation> </component> < component> <observation moodCode="EVN" classCode=" OBS"> <templateId root="2.16.840.1.647582.10.20.22.4.2& quot; /> <id nullFlavor="NA" /> <code codeSystem="local" code="MCV" displayName="MEAN CELL VOLUME" /> <statusCode code="completed" /> <effectiveTime value="420036890207" /> < valueunit="fl" xsi:type="PQ" value="99.9" /> <referenceRange> <observationRange> <text>80.0-100.0</text> </observationRange> </referenceRange> </observation> </component> <component> <observation moodCode="EVN" classCode ="OBS"> <templateId root=" 2.16.840.1.184345.10.20.22.4.2" /> <id nullFlavor="NA& quot; /> <code codeSystem="local" code="RBC" displayName="RED BLOOD CELL" /> <statusCode code=" completed" /> <effectiveTime value="624943295768" /> <value unit="m/cumm" xsi:type="PQ" value=& quot;2.68" /> <interpretationCode codeSystem="local& quot; code="*" /> <referenceRange> < observationRange> <text>4.00-6.00</text> </observationRange> </referenceRange> </observation& gt; </component> <component> <observation moodCode="EVN" classCode="OBS"> <templateId root="2.16.840.1.393405.10.20.22.4.2" /> <id nullFlavor ="NA"/> <code codeSystem="local" code=" RDW" displayName="RED CELLDISTRIBUTION WIDTH" /> < statusCode code="completed" /> <effectiveTime value=& quot;595721724515" /> <value unit="%" xsi: type="PQ" value="14.0" /> <referenceRange&gt ; <observationRange> <text>11.0-15.6</ text> </observationRange> </referenceRange> </observation> </component> <component> <observation moodCode="EVN" classCode="OBS"> <templateId root="2.16.840.1.968176.10.20.22.4.2" /> <id nullFlavor="NA" /> <code codeSystem=" local" code="WBC" displayName="WHITEBLOOD CELL" /> <statusCode code="completed" /> < effectiveTime value="018215588863" /> <value unit=&quot ;k/cumm" xsi:type="PQ" value="8.2" /> < referenceRange> <observationRange> <text> 5.0-10.0</text> </observationRange> </ referenceRange> </observation> </component> < component> <observation moodCode="EVN" classCode="OBS" > <templateId root="2.16.840.1.664194.10.20.22.4.2" /& gt; <id nullFlavor="NA" /> <code codeSystem=& quot;local" code="HGBT" displayName="HEMOGLOBIN" /> <statusCode code="completed" /> < effectiveTime value="147134583963" /> <value unit=&quot ;gm/dL" xsi:type="PQ" value="9.1" /> < interpretationCode codeSystem="local" code="*" /> <referenceRange> <observationRange> < text>14.0-18.0</text> </observationRange> &lt ;/referenceRange> </observation> </component> & lt;component> <observation moodCode="EVN" classCode=&quot ;OBS"> <templateId root="2.16.840.1.147758.10.20.22.4.2 " /> <id nullFlavor="NA" /> <code codeSystem="local" code="HCTT" displayName="HEMATOCRIT& quot; /> <statusCode code="completed" /> & lt;effectiveTime value="690037172982" /> <value unit="& #37;" xsi:type="PQ" value="26.8" /> < interpretationCode codeSystem="local" code="*" /> <referenceRange> <observationRange> < text>40.0-54.0</text> </observationRange> </ referenceRange> </observation> </component> < component> <observation moodCode="EVN" classCode=" OBS"> <templateId root="2.16.840.1.835788.10.20.22.4.2& quot; /> <id nullFlavor="NA" /> <code codeSystem="local" code="PLT" displayName="PLATELET COUNT" /> <statusCode code="completed" /> <effectiveTime value="325745300394" /> <value unit="k/cumm" xsi:type="PQ" value="142" /> <interpretationCode codeSystem="local" code="*" /& gt; <referenceRange> <observationRange> <text>150-450</text> </observationRange> </referenceRange> </observation> </component> & lt;/organizer> </entry> <entry> <organizer moodCode=&quot ;EVN" classCode="BATTERY"> <templateId root=" 2.16.840.1.035601.10.20.22.4.1" /> <id nullFlavor="NA&quot ; /> <code codeSystem="local" code="METAB" displayName="METABOLIC PANEL, BASIC" /> <statusCode code=& quot;completed" /><component> <observation moodCode=& quot;EVN" classCode="OBS"> <templateId root=" 2.16.840.1.000493.10.20.22.4.2" /> <id nullFlavor="NA& quot; /> <code codeSystem="local" code="K" displayName="POTASSIUM" /> <statusCode code=" completed" /> <effectiveTime value="550667588049" /> <value unit="mmol/L" xsi:type="PQ" value=& quot;4.4" /> <referenceRange> < observationRange> <text>3.5-5.3</text> & lt;/observationRange> </referenceRange> </ observation> </component> <component> <observation moodCode="EVN" classCode="OBS"> <templateId root="2.16.840.1.636841.10.20.22.4.2" /> <id nullFlavor ="NA" /> <code codeSystem="local" code="eGFR " displayName="EST GFR (MDRD)" /> <statusCode code ="completed" /> <effectiveTime value="849794554898 " /> <value unit="mL/min" xsi:type="PQ" value="> 60" /> <referenceRange> & lt;observationRange> <text>> 59</text> </observationRange> </referenceRange> </ observation> </component> <component> < observation moodCode="EVN" classCode="OBS"> < templateId root="2.16.840.1.280421.10.20.22.4.2" /> < id nullFlavor="NA" /> <code codeSystem="local" code= "GAP" displayName="ANION GAP" /> <statusCode code="completed" /> <effectiveTime value=" 339312756276" /> <value unit="mmol/L" xsi:type=& quot;PQ" value="10" /> <referenceRange> <observationRange> <text>5-15</text> </observationRange> </referenceRange></observation& gt; </component> <component> <observation moodCode="EVN" classCode="OBS"> <templateId root="2.16.840.1.812097.10.20.22.4.2" /> <id nullFlavor ="NA" /> <code codeSystem="local" code=" GLU" displayName="GLUCOSE" /> <statusCode code=& quot;completed" /> <effectiveTime value="403244084176& quot; /> <value unit="mg/dL" xsi:type="PQ" value=& quot;99" /> <referenceRange> < observationRange> <text>70-99</text> </ observationRange> </referenceRange> </observation&gt ; </component> <component> <observation moodCode ="EVN" classCode="OBS"> <templateId root=& quot;2.16.840.1.000173.10.20.22.4.2" /> <id nullFlavor="NA& quot; /> <code codeSystem="local" code="CA" displayName="CALCIUM" /> <statusCode code=" completed" /> <effectiveTime value="317916929904" /> <value unit="mg/dL" xsi:type="PQ" value=& quot;8.4" /> <interpretationCode codeSystem="local&quot ; code="*" /> <referenceRange> < observationRange> <text>8.5-10.1</text> & lt;/observationRange> </referenceRange> </observation> </component> <component> <observation moodCode= "EVN" classCode="OBS"> <templateId root=&quot ;2.16.840.1.262255.10.20.22.4.2" /> <id nullFlavor="NA& quot; /> <code codeSystem="local" code="BUN" displayName="BLOOD UREANITROGEN" /> <statusCode code=& quot;completed" /> <effectiveTime value="198383062776& quot; /> <value unit="mg/dL" xsi:type="PQ" value="14" /> <referenceRange> < observationRange> <text>7-20</text> </ observationRange> </referenceRange> </observation&gt ; </component> <component> <observation moodCode ="EVN" classCode="OBS"> <templateId root=& quot;2.16.840.1.645297.10.20.22.4.2" /> <id nullFlavor=&quot ;NA" /> <code codeSystem="local" code="CREAT& quot; displayName="CREATININE" /> <statusCode code=" completed" /> <effectiveTime value="415152579479" /> <value unit="mg/dL" xsi:type="PQ" value=& quot;0.8" /> <referenceRange> < observationRange> <text>0.8-1.3</text> & lt;/observationRange> </referenceRange></observation> </component> <component> <observation moodCode=& quot;EVN" classCode="OBS"> <templateId root=" 2.16.840.1.416428.10.20.22.4.2" /> <id nullFlavor="NA& quot; /> <code codeSystem="local" code="NA" displayName="SODIUM" /> <statusCode code=" completed" /> <effectiveTime value="145714378665" /> <value unit="mmol/L" xsi:type="PQ" value="134& quot; /> <interpretationCode codeSystem="local" code=& quot;*" /> <referenceRange> < observationRange> <text>135-148</text> & lt;/observationRange> </referenceRange> </ observation> </component> <component> < observation moodCode="EVN" classCode="OBS"> < templateId root="2.16.840.1.547822.10.20.22.4.2" /> < id nullFlavor="NA" /> <code codeSystem="local&quot ; code="CL" displayName="CHLORIDE" /> < statusCode code="completed" /><effectiveTime value=" 444668913236" /> <value unit="mmol/L" xsi:type=& quot;PQ" value="101" /> <referenceRange> <observationRange> <text>98-110</text> </observationRange> </referenceRange> </ observation> </component> <component> < observation moodCode="EVN" classCode="OBS"> < templateId root="2.16.840.1.990747.10.20.22.4.2" /> < id nullFlavor="NA"/> <code codeSystem="local&quot ; code="CO2" displayName="CARBON DIOXIDE" /> &lt ;statusCode code="completed" /> <effectiveTime value=& quot;349803691169" /> <value unit="mmol/L" xsi: type="PQ" value="23" /> <referenceRange> <observationRange> <text>21-32</text> </observationRange> </referenceRange> </ observation> </component> </organizer> </entry> & lt;entry> <organizer moodCode="EVN" classCode="BATTERY& quot;> <templateId root="2.16.840.1.985447.10.20.22.4.1" /& gt; <id nullFlavor="NA" /> <code codeSystem=" local" code="PHOS" displayName="PHOSPHORUS" /> <statusCode code="completed" /> <component> & lt;observation moodCode="EVN" classCode="OBS"> & lt;templateId root="2.16.840.1.213653.10.20.22.4.2" /> &lt ;id nullFlavor="NA" /> <code codeSystem="local& quot; code="PHOS" displayName="PHOSPHORUS" /> < statusCode code="completed" /> <effectiveTime value=& quot;573494187034" /> <value unit="mg/dL" xsi:type ="PQ" value="3.6" /> <referenceRange> <observationRange> <text>2.5-4.9</text> </observationRange> </referenceRange></ observation> </component> </organizer> </entry> & lt;entry><organizer moodCode="EVN" classCode="BATTERY" > <templateId root="2.16.840.1.447203.10.20.22.4.1" /> <id nullFlavor="NA" /> <code codeSystem="local " code="MAG" displayName="MAGNESIUM" /> < statusCode code="completed" /> <component> < observation moodCode="EVN" classCode="OBS"> < templateId root="2.16.840.1.695242.10.20.22.4.2" /> < id nullFlavor="NA" /> <code codeSystem="local&quot ; code="MAG" displayName="MAGNESIUM" /> < statusCodecode="completed" /> <effectiveTime value=& quot;388399090763" /> <value unit="mg/dL" xsi:type=& quot;PQ" value="1.9" /> <referenceRange> <observationRange> <text>1.8-2.4</text> </observationRange> </referenceRange> </ observation> </component> </organizer> </entry> &lt ;entry> <organizer moodCode="EVN" classCode="BATTERY& quot;> <templateId root="2.16.840.1.136757.10.20.22.4.1" /& gt; <id nullFlavor="NA" /> <code codeSystem=" local" code="GLUMON" displayName="GLUCOSE (POC)" /> <statusCode code="completed" /> <component> <observation moodCode="EVN"classCode="OBS"> <templateId root="2.16.840.1.007859.10.20.22.4.2" /> <id nullFlavor="NA" /> <code codeSystem=" local" code="GLUMON" displayName="GLUCOSE (POC)" /> <statusCode code="completed" /> < effectiveTime value="728717188449" /> <value unit=&quot ;mg/dL" xsi:type="PQ" value="88" /> < referenceRange> <observationRange> <text> 70-99</text> </observationRange> </referenceRange> </observation> </component> </organizer> </ entry> <entry> <organizer moodCode="EVN" classCode=& quot;BATTERY"> <templateId root=" 2.16.840.1.671883.10.20.22.4.1" /> <id nullFlavor="NA&quot ; /> <code codeSystem="local" code="GLUMON" displayName="GLUCOSE (POC)" /> <statusCode code=" completed" /> <component> <observation moodCode=& quot;EVN" classCode="OBS"> <templateId root=" 2.16.840.1.178876.10.20.22.4.2" /> <id nullFlavor="NA" /> <code codeSystem="local" code="GLUMON" displayName="GLUCOSE (POC)" /> <statusCode code=" completed" /> <effectiveTime value="681068110394" /> <value unit="mg/dL" xsi:type="PQ" value=& quot;88" /> <referenceRange> < observationRange> <text>70-99</text> < /observationRange> </referenceRange> </observation& gt; </component> </organizer> </entry> <entry&gt ; <organizer moodCode="EVN" classCode="BATTERY"> <templateId root="2.16.840.1.343905.10.20.22.4.1" /> & lt;id nullFlavor="NA" /> <code codeSystem="local&quot ; code="GLUMON" displayName="GLUCOSE (POC)" /> < statusCode code="completed" /> <component> < observation moodCode="EVN" classCode="OBS"> < templateId root="2.16.840.1.435577.10.20.22.4.2" /> < id nullFlavor="NA" /> <code codeSystem="local&quot ; code="GLUMON" displayName="GLUCOSE (POC)" /> & lt;statusCode code="completed" /> <effectiveTime value= "286728627276" /> <value unit="mg/dL" xsi: type="PQ" value="100" /> <interpretationCode codeSystem="local" code="*" /> < referenceRange> <observationRange> <text> 70-99</text> </observationRange> </referenceRange> </observation> </component> </organizer> < /entry> <entry> <organizer moodCode="EVN" classCode=& quot;BATTERY"> <templateId root=" 2.16.840.1.117589.10.20.22.4.1" /> <id nullFlavor="NA&quot ; /> <code codeSystem="local" code="GLUMON" displayName="GLUCOSE (POC)" /> <statusCode code=" completed" /> <component> <observation moodCode=& quot;EVN" classCode="OBS"> <templateId root=" 2.16.840.1.653471.10.20.22.4.2" /> <id nullFlavor="NA& quot; /> <code codeSystem="local" code="GLUMON& quot; displayName="GLUCOSE (POC)" /> <statusCode code=& quot;completed" /> <effectiveTime value="093625225620& quot; /> <value unit="mg/dL" xsi:type="PQ" value="100" /> <interpretationCode codeSystem=" local" code="*" /> <referenceRange> <observationRange><text>70-99</text> </ observationRange> </referenceRange> </observation&gt ; </component> </organizer> </entry> <entry> <organizer moodCode="EVN" classCode="BATTERY"> <templateId root="2.16.840.1.805771.10.20.22.4.1" /> < id nullFlavor="NA" /> <code codeSystem="local" code=& quot;GLUMON" displayName="GLUCOSE (POC)"/> < statusCode code="completed" /> <component> < observation moodCode="EVN" classCode="OBS"> < templateId root="2.16.840.1.175269.10.20.22.4.2" /> < id nullFlavor="NA" /> <code codeSystem="local&quot ; code="GLUMON" displayName="GLUCOSE (POC)" /> < statusCode code="completed" /> <effectiveTime value=& quot;943661024022" /> <value unit="mg/dL" xsi:type ="PQ" value="123" /> <interpretationCode codeSystem="local" code="*" /> <referenceRange> <observationRange> <text>70-99</text&gt ; </observationRange> </referenceRange> & lt;/observation> </component> </organizer> </entry&gt ; <entry> <organizer moodCode="EVN" classCode=" BATTERY"> <templateId root="2.16.840.1.446781.10.20.22.4.1& quot; /> <id nullFlavor="NA" /> <code codeSystem ="local" code="GLUMON" displayName="GLUCOSE (POC)&quot ; /> <statusCode code="completed" /> <component& gt; <observation moodCode="EVN" classCode="OBS"&gt ; <templateId root="2.16.840.1.352042.10.20.22.4.2" /> <id nullFlavor="NA" /> <code codeSystem=& quot;local" code="GLUMON" displayName="GLUCOSE (POC)" / > <statusCode code="completed" /> < effectiveTime value="267332062029" /> <value unit="mg/dL& quot; xsi:type="PQ" value="123" /> < interpretationCode codeSystem="local" code="*" /> <referenceRange> <observationRange> < text>70-99</text> </observationRange> </ referenceRange> </observation> </component> </ organizer> </entry> <entry> <organizer moodCode="EVN " classCode="BATTERY"> <templateId root=" 2.16.840.1.372613.10.20.22.4.1" /> <id nullFlavor="NA&quot ; /> <code codeSystem="local" code="GLUMON" displayName="GLUCOSE (POC)" /> <statusCode code=" completed" /> <component> <observation moodCode=& quot;EVN" classCode="OBS"> <templateId root=" 2.16.840.1.382656.10.20.22.4.2" /> <id nullFlavor="NA& quot; /> <code codeSystem="local" code="GLUMON& quot; displayName="GLUCOSE (POC)" /> <statusCode code=& quot;completed" /> <effectiveTime value="387915075522& quot; /> <value unit="mg/dL" xsi:type="PQ" value="104" /> <interpretationCode codeSystem=" local" code="*" /> <referenceRange> <observationRange> <text>70-99</text> </observationRange> </referenceRange> </observation> </component> </organizer></entry> <entry> & lt;organizer moodCode="EVN" classCode="BATTERY"> &lt ;templateId root="2.16.840.1.085273.10.20.22.4.1" /> <id nullFlavor="NA" /> <code codeSystem="local" code= "GLUMON" displayName="GLUCOSE (POC)" /> < statusCode code="completed" /> <component> < observation moodCode="EVN" classCode="OBS"> < templateId root="2.16.840.1.642473.10.20.22.4.2" /> < id nullFlavor="NA" /> <code codeSystem="local&quot ; code="GLUMON" displayName="GLUCOSE (POC)" /> & lt;statusCode code="completed" /> <effectiveTime value= "066044161443" /> <value unit="mg/dL" xsi: type="PQ" value="104" /> <interpretationCode codeSystem="local" code="*" /> < referenceRange> <observationRange> <text>70-99</ text> </observationRange> </referenceRange> </observation> </component> </organizer> </ entry> <entry> <organizer moodCode="EVN" classCode=& quot;BATTERY"> <templateIdroot=" 2.16.840.1.614646.10.20.22.4.1" /> <id nullFlavor="NA&quot ; /> <code codeSystem="local" code="GLUMON" displayName="GLUCOSE (POC)" /> <statusCode code=" completed" /> <component> <observation moodCode=& quot;EVN" classCode="OBS"> <templateId root=" 2.16.840.1.214598.10.20.22.4.2" /> <id nullFlavor="NA& quot; /> <code codeSystem="local" code="GLUMON& quot; displayName="GLUCOSE (POC)" /> <statusCode code=& quot;completed" /> <effectiveTime value="809564732506& quot; /> <value unit="mg/dL" xsi:type="PQ" value="93" /> <referenceRange> < observationRange> <text>70-99</text> < /observationRange> </referenceRange> </observation& gt; </component> </organizer> </entry> <entry&gt ; <organizer moodCode="EVN" classCode="BATTERY"> <templateId root="2.16.840.1.866562.10.20.22.4.1" /> & lt;id nullFlavor="NA" /> <codecodeSystem="local" code="GLUMON" displayName="GLUCOSE (POC)" /> < statusCode code="completed" /> <component> < observation moodCode="EVN" classCode="OBS"> < templateId root="2.16.840.1.907353.10.20.22.4.2" /> < id nullFlavor="NA" /> <code codeSystem="local&quot ; code="GLUMON" displayName="GLUCOSE (POC)" /> & lt;statusCode code="completed" /> <effectiveTime value= "313389008932" /> <value unit="mg/dL" xsi: type="PQ" value="93" /> <referenceRange> <observationRange> <text>70-99</text> </observationRange> </referenceRange> < /observation> </component> </organizer> </entry> <entry> <organizermoodCode="EVN" classCode="BATTERY& quot;> <templateId root="2.16.840.1.371749.10.20.22.4.1" /& gt; <id nullFlavor="NA" /> <code codeSystem=" local" code="PT" displayName="PROTHROMBIN TIME WITH INR&quot ; /> <statusCode code="completed" /> <component& gt; <observation moodCode="EVN" classCode="OBS"&gt ; <templateId root="2.16.840.1.191846.10.20.22.4.2" /> <id nullFlavor="NA" /> <code codeSystem=& quot;local" code="INRX" displayName="INTERNATIONAL NORMAL RATIO" /> <statusCode code="completed" /> & lt;effectiveTime value="969781142868" /> <value unit=& quot;" xsi:type="PQ" value="1.5" /> < interpretationCode codeSystem="local" code="*" /> <referenceRange> <observationRange> < text>0.9-1.1</text> </observationRange> </ referenceRange> </observation> </component> < component> <observation moodCode="EVN" classCode=" OBS"> <templateId root="2.16.840.1.013762.10.20.22.4.2& quot; /> <id nullFlavor="NA" /> <code codeSystem="local" code="PTPAT" displayName=" PROTHROMBIN TIME" /> <statusCode code="completed" /> <effectiveTime value="991364131769" /> & lt;value unit="sec" xsi:type="PQ" value="15.5" /& gt; <interpretationCode codeSystem="local" code="*& quot; /> <referenceRange> <observationRange> <text>9.3-12.2</text> </observationRange> </referenceRange> </observation> </component&gt ; </organizer> </entry> <entry> <organizer moodCode ="EVN" classCode="BATTERY"> <templateId root=& quot;[id number]" /><id nullFlavor="NA" /> <code codeSystem="local" code="METABC" displayName="METABOLIC PANEL, COMPREHN" /> <statusCode code ="completed" /> <component> <observation moodCode="EVN" classCode="OBS"> <templateId root="[id number]" /> <id nullFlavor ="NA" /> <code codeSystem="local" code=" K" displayName="POTASSIUM" /> <statusCode code=& quot;completed" /> <effectiveTime value="[id number]& quot; /> <value unit="mmol/L" xsi:type="PQ" value="4.5" /> <referenceRange> < observationRange> <text>3.5-5.3</text> & lt;/observationRange> </referenceRange> </ observation> </component> <component> < observation moodCode="EVN" classCode="OBS"> < templateId root="2.16.840.1.296228.10.20.22.4.2" /> < id nullFlavor="NA" /> <code codeSystem="local&quot ; code="eGFR" displayName="EST GFR (MDRD)" /> & lt;statusCode code="completed" /> <effectiveTime value= "648729519693" /> <value unit="mL/min" xsi: type="PQ" value="> 60" /> < referenceRange> <observationRange> <text> > 59</text> </observationRange> </ referenceRange> </observation> </component> < component> <observation moodCode="EVN" classCode=" OBS"> <templateId root="2.16.840.1.528614.10.20.22.4.2& quot; /> <id nullFlavor="NA" /> <code codeSystem="local" code="GAP" displayName="ANION GAP& quot; /> <statusCode code="completed" /> & lt;effectiveTime value="378629601800" /> <value unit=& quot;mmol/L" xsi:type="PQ" value="7" /> &lt ;referenceRange> <observationRange> <text>5- 15</text> </observationRange> </ referenceRange> </observation> </component> < component> <observation moodCode="EVN" classCode=" OBS"> <templateId root="2.16.840.1.687681.10.20.22.4.2& quot; /> <id nullFlavor="NA" /> <code codeSystem="local" code="GLU" displayName="GLUCOSE&quot ; /><statusCode code="completed" /> < effectiveTime value="378962168643" /> <value unit=&quot ;mg/dL" xsi:type="PQ" value="101" /> < interpretationCode codeSystem="local" code="*" /> <referenceRange> <observationRange> < text>70-99</text> </observationRange> </ referenceRange> </observation> </component> < component> <observation moodCode="EVN" classCode=" OBS"> <templateId root="2.16.840.1.852628.10.20.22.4.2& quot; /> <id nullFlavor="NA" /> <code codeSystem="local" code="CA" displayName="CALCIUM&quot ; /> <statusCode code="completed"/> < effectiveTime value="059607755544" /> <value unit=&quot ;mg/dL" xsi:type="PQ" value="8.4" /> < interpretationCode codeSystem="local" code="*" /> <referenceRange> <observationRange> < text>8.5-10.1</text> </observationRange> </ referenceRange> </observation> </component> < component> <observation moodCode="EVN" classCode=" OBS"> <templateId root="2.16.840.1.725048.10.20.22.4.2& quot; /> <id nullFlavor="NA" /> <code codeSystem="local" code="BUN" displayName="BLOOD UREA NITROGEN" /> <statusCode code="completed" /> <effectiveTime value="929653569464" /> < value unit="mg/dL" xsi:type="PQ" value="19" /> <referenceRange> <observationRange> <text>7-20</text> </observationRange> & lt;/referenceRange> </observation> </component> <component> <observation moodCode="EVN" classCode=& quot;OBS"> <templateId root=" 2.16.840.1.687340.10.20.22.4.2" /> <id nullFlavor="NA& quot; /><code codeSystem="local" code="CREAT" displayName="CREATININE" /> <statusCode code=" completed" /> <effectiveTime value="645515701364" /> <value unit="mg/dL" xsi:type="PQ" value=& quot;0.9" /> <referenceRange> < observationRange> <text>0.8-1.3</text> & lt;/observationRange> </referenceRange> </observation&gt ; </component> <component> <observation moodCode ="EVN" classCode="OBS"> <templateId root=& quot;2.16.840.1.816263.10.20.22.4.2" /> <id nullFlavor=&quot ;NA" /> <code codeSystem="local" code="NA& quot; displayName="SODIUM" /> <statusCode code=" completed" /> <effectiveTime value="235071430679" /> <value unit="mmol/L" xsi:type="PQ" value=" 134" /> <interpretationCode codeSystem="local" code="*" /> <referenceRange> < observationRange> <text>135-148</text> & lt;/observationRange> </referenceRange> </ observation> </component> <component> < observation moodCode="EVN" classCode="OBS"> < templateId root="2.16.840.1.356718.10.20.22.4.2" /> < id nullFlavor="NA" /> <code codeSystem="local&quot ; code="CL" displayName="CHLORIDE" /> < statusCode code="completed" /> <effectiveTime value=" 696508264675" /> <value unit="mmol/L"xsi:type=& quot;PQ" value="102" /> <referenceRange> <observationRange> <text>98-110</text> </observationRange> </referenceRange> </ observation> </component> <component> < observation moodCode="EVN" classCode="OBS"> < templateId root="2.16.840.1.902760.10.20.22.4.2" /> < id nullFlavor="NA" /> <code codeSystem="local&quot ; code="AST" displayName="AST/SGOT" /> < statusCode code="completed" /> <effectiveTime value=& quot;431034917127" /> <value unit="Units/L" xsi: type="PQ" value="31" /> <referenceRange> <observationRange> <text>10-37</text> </observationRange> </referenceRange> </ observation> </component> <component> < observation moodCode="EVN" classCode="OBS"> < templateId root="2.16.840.1.527886.10.20.22.4.2" /> < id nullFlavor="NA" /> <code codeSystem="local&quot ; code="ALT" displayName="ALT/SGPT" /><statusCode code ="completed" /> <effectiveTime value="373552861366 " /> <value unit="Units/L" xsi:type="PQ&quot ; value="43" /> <referenceRange> < observationRange> <text>< 66</text> </observationRange> </referenceRange> </ observation> </component> <component> < observation moodCode="EVN" classCode="OBS"> < templateId root="2.16.840.1.313136.10.20.22.4.2" /> < id nullFlavor="NA" /> <code codeSystem="local&quot ; code="CO2" displayName="CARBON DIOXIDE" /> &lt ;statusCode code="completed" /> <effectiveTime value=& quot;459391862853" /> <value unit="mmol/L" xsi:type= "PQ" value="25" /> <referenceRange> < observationRange> <text>21-32</text> < /observationRange> </referenceRange> </observation& gt; </component> <component> <observation moodCode="EVN" classCode="OBS"> <templateId root="2.16.840.1.444732.10.20.22.4.2" /> <id nullFlavor ="NA" /> <code codeSystem="local" code=" TP" displayName="TOTAL PROTEIN" /> <statusCode code="completed" /> <effectiveTime value=" 580211224109" /> <value unit="gm/dL" xsi:type=& quot;PQ" value="6.2" /> <interpretationCode codeSystem="local" code="*" /> < referenceRange> <observationRange> <text> 6.4-8.2</text> </observationRange> </ referenceRange> </observation> </component> < component> <observation moodCode="EVN" classCode=" OBS"> <templateId root="2.16.840.1.879831.10.20.22.4.2& quot; /> <id nullFlavor="NA" /> <code codeSystem="local" code="ALB" displayName="ALBUMIN&quot ; /> <statusCode code="completed" /> < effectiveTime value="602821132173" /> <value unit=&quot ;gm/dL" xsi:type="PQ" value="2.9" /> < interpretationCode codeSystem="local" code="*" /> <referenceRange> <observationRange> < text>3.4-5.0</text> </observationRange> </ referenceRange> </observation> </component> < component> <observation moodCode="EVN" classCode=" OBS"> <templateId root="2.16.840.1.484178.10.20.22.4.2& quot; /> <id nullFlavor="NA" /> <code codeSystem="local" code="BILTOT" displayName="BILI TOTAL" /> <statusCode code="completed" /> <effectiveTime value="636067824310" /> <value unit="mg/dL" xsi:type="PQ" value="1.2" /> <interpretationCode codeSystem="local" code="*" /&gt ; <referenceRange> <observationRange> <text>0.0-1.0</text> </observationRange> </referenceRange> </observation></component> < component> <observation moodCode="EVN" classCode=" OBS"> <templateId root="2.16.840.1.478662.10.20.22.4.2& quot; /> <id nullFlavor="NA" /> <code codeSystem="local" code="ALKP" displayName="ALKALINE PHOSPHATASE TOTAL" /> <statusCode code="completed&quot ; /> <effectiveTime value="286754864965" /> <value unit="Units/L" xsi:type="PQ" value="128& quot; /> <referenceRange> <observationRange> <text>50-136</text> </observationRange> </referenceRange> </observation> </component& gt; </organizer> </entry> <entry> <organizer moodCode="EVN" classCode="BATTERY"> <templateId root="2.16.840.1.929395.10.20.22.4.1" /> <id nullFlavor=& quot;NA" /> <code codeSystem="local" code="VITB12 " displayName="VITAMIN B12" /> <statusCode code=" completed" /> <component> <observation moodCode=& quot;EVN" classCode="OBS"> <templateId root=" 2.16.840.1.465401.10.20.22.4.2" /> <id nullFlavor="NA&quot ; /> <code codeSystem="local" code="VITB12" displayName="VITAMIN B12" /> <statusCode code=" completed" /> <effectiveTime value="213315557680" /> <value unit="pg/mL" xsi:type="PQ" value=& quot;559" /> <referenceRange> < observationRange> <text>211-121</text> & lt;/observationRange> </referenceRange> </ observation> </component> </organizer> </entry> & lt;entry> <organizer moodCode="EVN" classCode="BATTERY& quot;> <templateId root="2.16.840.1.437376.10.20.22.4.1" /& gt; <id nullFlavor="NA" /> <code codeSystem=" local" code="FOL" displayName="FOLIC ACID,SERUM" /> <statusCode code="completed" /> <component> <observation moodCode="EVN" classCode="OBS"> <templateId root="2.16.840.1.689334.10.20.22.4.2" /> <id nullFlavor="NA" /> <code codeSystem=" local" code="FOL" displayName="FOLIC ACID,SERUM" /> <statusCode code="completed"/> < effectiveTime value="424586777510" /> <value unit=&quot ;ng/mL" xsi:type="PQ" value="11.5" /> < referenceRange> <observationRange> <text>& gt; 3.4</text> </observationRange> </ referenceRange> </observation> </component> </ organizer> </entry> <entry> <organizer moodCode="EVN " classCode="BATTERY"> <templateId root=" 2.16.840.1.414381.10.20.22.4.1" /> <id nullFlavor="NA&quot ; /> <code codeSystem="local" code="PT" displayName="PROTHROMBIN TIME WITH INR" /> <statusCode code ="completed" /> <component> <observation moodCode="EVN" classCode="OBS"> <templateId root="2.16.840.1.272516.10.20.22.4.2" /> <id nullFlavor=" NA" /> <code codeSystem="local" code="INRX& quot; displayName="INTERNATIONAL NORMAL RATIO" /> < statusCode code="completed" /> <effectiveTime value=& quot;638817396166" /> <value unit="" xsi:type=& quot;PQ" value="1.5" /> <interpretationCode codeSystem="local" code="*" /> < referenceRange> <observationRange> <text>0.9-1.1&lt ;/text> </observationRange> </referenceRange&gt ; </observation> </component> <component> <observation moodCode="EVN" classCode="OBS"> &lt ;templateId root="2.16.840.1.209186.10.20.22.4.2" /> < id nullFlavor="NA" /> <code codeSystem="local&quot ; code="PTPAT" displayName="PROTHROMBIN TIME" /> <statusCode code="completed" /> <effectiveTime value="917386187522" /> <value unit="sec" xsi :type="PQ" value="15.5" /> < interpretationCode codeSystem="local" code="*" /> <referenceRange> <observationRange> <text >9.3-12.2</text> </observationRange> </ referenceRange> </observation> </component> </ organizer> </entry> <entry> <organizer moodCode="EVN " classCode="BATTERY"> <templateId root=" 2.16.840.1.664819.10.20.22.4.1" /> <id nullFlavor="NA&quot ; /> <code codeSystem="local" code="METABC" displayName="METABOLIC PANEL, COMPREHN" /> <statusCode code ="completed" /> <component> <observation moodCode="EVN" classCode="OBS"> <templateId root="2.16.840.1.257348.10.20.22.4.2" /> <id nullFlavor ="NA" /> <code codeSystem="local" code=" K" displayName="POTASSIUM" /> <statusCode code=& quot;completed" /> <effectiveTime value="164548069417& quot; /> <value unit="mmol/L" xsi:type="PQ" value="4.5" /> <referenceRange> < observationRange> <text>3.5-5.3</text> </ observationRange> </referenceRange> </observation&gt ; </component> <component> <observation moodCode ="EVN" classCode="OBS"> <templateId root=& quot;2.16.840.1.607684.10.20.22.4.2" /> <id nullFlavor=&quot ;NA" /> <code codeSystem="local" code="eGFR& quot; displayName="EST GFR (MDRD)" /> <statusCode code=& quot;completed" /> <effectiveTime value="037059800955& quot; /> <value unit="mL/min" xsi:type="PQ" value="> 60" /> <referenceRange> & lt;observationRange> <text>> 59</text> </ observationRange> </referenceRange> </observation&gt ; </component> <component> <observation moodCode ="EVN" classCode="OBS"> <templateId root=& quot;2.16.840.1.887103.10.20.22.4.2" /> <id nullFlavor=&quot ;NA" /> <code codeSystem="local" code="GAP& quot; displayName="ANION GAP" /> <statusCode code=&quot ;completed" /> <effectiveTime value="910814439771&quot ; /> <value unit="mmol/L" xsi:type="PQ" value ="7" /> <referenceRange> < observationRange> <text>5-15</text> </ observationRange> </referenceRange> </observation&gt ; </component> <component> <observation moodCode ="EVN" classCode="OBS"> <templateId root=& quot;2.16.840.1.586870.10..22.4.2" /> <id nullFlavor=&quot ;NA" /> <code codeSystem="local" code="GLU& quot; displayName="GLUCOSE" /> <statusCode code=" completed" /> <effectiveTime value="085702280274" /> <value unit="mg/dL" xsi:type="PQ" value=& quot;101" /> <interpretationCode codeSystem="local&quot ; code="*" /> <referenceRange> < observationRange> <text>70-99</text> < /observationRange> </referenceRange> </observation& gt; </component> <component> <observation moodCode="EVN" classCode="OBS"> <templateId root=&quot ;2.16.840.1.186379.10.20.22.4.2" /> <id nullFlavor="NA& quot; /> <code codeSystem="local" code="CA" displayName="CALCIUM" /> <statusCode code=" completed" /> <effectiveTime value="042072312924" /> <value unit="mg/dL" xsi:type="PQ" value=& quot;8.4" /> <interpretationCode codeSystem="local&quot ; code="*" /> <referenceRange> < observationRange> <text>8.5-10.1</text> & lt;/observationRange> </referenceRange> </ observation> </component> <component> < observation moodCode="EVN" classCode="OBS"> < templateId root="2.16.840.1.236805.10.20.22.4.2" /> < id nullFlavor="NA" /> <code codeSystem="local&quot ; code="BUN" displayName="BLOOD UREA NITROGEN" /> < statusCode code="completed" /> <effectiveTime value=& quot;359113043463" /> <value unit="mg/dL" xsi:type ="PQ" value="19" /> <referenceRange> <observationRange> <text>7-20</text> </observationRange> </referenceRange> </ observation> </component> <component> < observation moodCode="EVN" classCode="OBS"> < templateId root="2.16.840.1.154946.10..22.4.2" /> < id nullFlavor="NA" /> <code codeSystem="local&quot ; code="CREAT" displayName="CREATININE" /> < statusCode code="completed" /> <effectiveTime value=& quot;382261140038" /> <value unit="mg/dL" xsi:type="PQ " value="0.9" /> <referenceRange> & lt;observationRange> <text>0.8-1.3</text> & lt;/observationRange> </referenceRange> </ observation></component> <component> <observation moodCode="EVN" classCode="OBS"> <templateId root="2.16.840.1.993010.10.20.22.4.2" /> <id nullFlavor=& quot;NA" /> <code codeSystem="local" code="NA " displayName="SODIUM" /> <statusCode code=" completed" /> <effectiveTime value="617058460865" /> <value unit="mmol/L" xsi:type="PQ" value=& quot;134" /> <interpretationCode codeSystem="local&quot ; code="*" /> <referenceRange> < observationRange> <text>135-148</text> & lt;/observationRange> </referenceRange> </observation> </component> <component> <observation moodCode= "EVN" classCode="OBS"> <templateId root=&quot ;2.16.840.1.372987.10.20.22.4.2" /> <id nullFlavor="NA& quot; /> <code codeSystem="local" code="CL" displayName="CHLORIDE" /> <statusCode code=" completed" /> <effectiveTime value="446834537219" /> <value unit="mmol/L" xsi:type="PQ" value=& quot;102" /> <referenceRange> < observationRange> <text>98-110</text> </ observationRange> </referenceRange> </observation&gt ; </component> <component> <observation moodCode ="EVN" classCode="OBS"> <templateId root=& quot;2.16.840.1.318032.10..22.4.2" /> <id nullFlavor=&quot ;NA" /> <code codeSystem="local" code="AST& quot; displayName="AST/SGOT" /> <statusCode code=" completed" /> <effectiveTime value="104726163584"/ > <value unit="Units/L" xsi:type="PQ" value=& quot;31" /> <referenceRange> < observationRange> <text>10-37</text> < /observationRange> </referenceRange> </observation& gt; </component> <component> <observation moodCode="EVN" classCode="OBS"> <templateId root="2.16.840.1.096411.10..22.4.2" /> <id nullFlavor ="NA" /> <code codeSystem="local" code=" ALT" displayName="ALT/SGPT" /> <statusCode code=& quot;completed" /> <effectiveTime value="300487491302& quot; /> <value unit="Units/L" xsi:type="PQ" value="43" /> <referenceRange> < observationRange> <text>< 66</text> </ observationRange> </referenceRange> </observation&gt ; </component> <component> <observation moodCode ="EVN" classCode="OBS"> <templateId root=& quot;216.840.1.244371.10.20.22.4.2" /><id nullFlavor="NA" /> <code codeSystem="local" code="CO2" displayName="CARBON DIOXIDE" /> <statusCode code=" completed" /> <effectiveTime value="576134760598" /> <value unit="mmol/L" xsi:type="PQ" value=& quot;25" /> <referenceRange> <observationRange&gt ; <text>21-32</text> </observationRange& gt; </referenceRange> </observation> </ component><component> <observation moodCode="EVN" classCode="OBS"> <templateId root=" 2.16.840.1.867300.10.20.22.4.2" /> <id nullFlavor="NA& quot; /> <code codeSystem="local" code="TP" displayName="TOTAL PROTEIN" /> <statusCode code=" completed" /> <effectiveTime value="395616824406" /> <value unit="gm/dL" xsi:type="PQ" value=& quot;6.2" /> <interpretationCode codeSystem="local&quot ; code="*" /> <referenceRange> < observationRange> <text>6.4-8.2</text> </ observationRange> </referenceRange> </observation&gt ; </component> <component> <observation moodCode ="EVN" classCode="OBS"> <templateId root=& quot;2.16.840.1.066742.10.20.22.4.2" /> <id nullFlavor=&quot ;NA" /> <code codeSystem="local" code="ALB& quot; displayName="ALBUMIN" /><statusCode code="completed& quot; /> <effectiveTime value="292001870924" /> <value unit="gm/dL" xsi:type="PQ" value="2.9& quot; /> <interpretationCode codeSystem="local" code=& quot;*" /> <referenceRange> < observationRange> <text>3.4-5.0</text> & lt;/observationRange> </referenceRange> </ observation> </component> <component> < observation moodCode="EVN" classCode="OBS"> < templateId root="2.16.840.1.931232.10.20.22.4.2" /> <id nullFlavor="NA" /> <code codeSystem="local" code="BILTOT" displayName="BILI TOTAL" /> < statusCode code="completed" /> <effectiveTime value=& quot;038823265276" /> <value unit="mg/dL" xsi:type ="PQ" value="1.2" /> <interpretationCode codeSystem="local" code="*" /> < referenceRange> <observationRange> <text> 0.0-1.0</text> </observationRange> </ referenceRange> </observation> </component> < component> <observation moodCode="EVN" classCode=" OBS"> <templateId root="2.16.840.1.812993.10.20.22.4.2& quot; /> <id nullFlavor="NA" /> <code codeSystem="local" code="ALKP" displayName="ALKALINE PHOSPHATASE TOTAL" /> <statusCode code="completed&quot ; /> <effectiveTime value="360383777036" /> < value unit="Units/L" xsi:type="PQ" value="128" /& gt; <referenceRange> <observationRange> <text>50-136</text> </observationRange> </referenceRange> </observation> </component&gt ; </organizer> </entry> <entry> <organizer moodCode ="EVN" classCode="BATTERY"> <templateId root=& quot;2.16.840.1.135913.10.20.22.4.1" /> <idnullFlavor="NA& quot; /> <code codeSystem="local" code="VITB12" displayName="VITAMIN B12" /> <statusCode code=" completed" /> <component> <observation moodCode=& quot;EVN" classCode="OBS"> <templateId root=" 2.16.840.1.831639.10..22.4.2" /> <id nullFlavor="NA& quot; /> <code codeSystem="local" code="VITB12& quot; displayName="VITAMIN B12" /> <statusCode code=& quot;completed" /> <effectiveTime value="398575662831& quot; /> <value unit="pg/mL" xsi:type="PQ" value="559" /> <referenceRange> < observationRange> <text>211-911</text> & lt;/observationRange></referenceRange> </observation> </component> </organizer> </entry> <entry> &lt ;organizer moodCode="EVN" classCode="BATTERY"> < templateId root="2.16.840.1.567868.10.20.22.4.1" /> <id nullFlavor="NA" /> <code codeSystem="local" code= "FOL" displayName="FOLIC ACID,SERUM" /> < statusCode code="completed" /> <component> < observation moodCode="EVN" classCode="OBS"> < templateId root="2.16.840.1.128585.10.20.22.4.2" /> < id nullFlavor="NA" /> <code codeSystem="local&quot ; code="FOL" displayName="FOLIC ACID,SERUM" /> & lt;statusCode code="completed" /> <effectiveTime value= "185207886504" /> <value unit="ng/mL" xsi: type="PQ" value="11.5" /> <referenceRange&gt ; <observationRange> <text>> 3.4</ text> </observationRange> </referenceRange> </observation> </component> </organizer> </ entry> <entry> <organizer moodCode="EVN" classCode=& quot;BATTERY"> <templateId root=" 2.16.840.1.890752.10.20.22.4.1" /> <id nullFlavor="NA&quot ; /> <code codeSystem="local" code="GLUMON" displayName="GLUCOSE (POC)" /> <statusCode code=" completed" /> <component> <observation moodCode=& quot;EVN" classCode="OBS"> <templateId root=" 2.16.840.1.059197.10.20.22.4.2" /> <id nullFlavor="NA& quot; /> <code codeSystem="local" code="GLUMON& quot; displayName="GLUCOSE (POC)" /> <statusCode code=& quot;completed" /> <effectiveTime value="355367824587& quot; /> <value unit="mg/dL" xsi:type="PQ" value="86" /> <referenceRange> < observationRange> <text>70-99</text> </ observationRange> </referenceRange> </observation&gt ; </component> </organizer> </entry> <entry> <organizer moodCode="EVN" classCode="BATTERY"> <templateId root="2.16.840.1.788493.10.20.22.4.1" /> < id nullFlavor="NA" /> <code codeSystem="local" code="GLUMON" displayName="GLUCOSE (POC)" /> < statusCode code="completed" /> <component> < observation moodCode="EVN" classCode="OBS"> < templateId root="2.16.840.1.131530.10.20.22.4.2" /> < id nullFlavor="NA" /> <code codeSystem="local" code= "GLUMON" displayName="GLUCOSE (POC)" /> < statusCode code="completed" /> <effectiveTime value=& quot;861942206530" /> <value unit="mg/dL" xsi:type ="PQ" value="86" /> <referenceRange> <observationRange><text>70-99</text> </ observationRange> </referenceRange> </observation&gt ; </component> </organizer> </entry> <entry> <organizer moodCode="EVN" classCode="BATTERY"> <templateId root="2.16.840.1.690907.10.20.22.4.1" /> < id nullFlavor="NA" /> <code codeSystem="local" code=& quot;GLUMON" displayName="GLUCOSE (POC)"/> < statusCode code="completed" /> <component> < observation moodCode="EVN" classCode="OBS"> < templateId root="2.16.840.1.270671.10.20.22.4.2" /> < id nullFlavor="NA" /> <code codeSystem="local&quot ; code="GLUMON" displayName="GLUCOSE (POC)" /> < statusCode code="completed" /> <effectiveTime value=& quot;774948047575" /> <value unit="mg/dL" xsi:type ="PQ" value="74" /> <referenceRange> <observationRange> <text>70-99</text> </observationRange> </referenceRange> </ observation> </component> </organizer> </entry> & lt;entry> <organizer moodCode="EVN" classCode="BATTERY& quot;> <templateId root="2.16.840.1.268500.10.20.22.4.1" /& gt; <id nullFlavor="NA" /> <code codeSystem=" local" code="GLUMON" displayName="GLUCOSE (POC)" />& lt;statusCode code="completed" /> <component> &lt ;observation moodCode="EVN" classCode="OBS"> &lt ;templateId root="2.16.840.1.137041.10.20.22.4.2" /> < id nullFlavor="NA" /> <code codeSystem="local&quot ; code="GLUMON" displayName="GLUCOSE (POC)" /> & lt;statusCode code="completed" /> <effectiveTime value= "825588189200"/> <value unit="mg/dL" xsi:type ="PQ" value="74" /> <referenceRange> <observationRange> <text>70-99</text> </observationRange> </referenceRange> </ observation> </component> </organizer> </entry> & lt;entry> <organizer moodCode="EVN" classCode="BATTERY& quot;> <templateId root="2.16.840.1.417889.10.20.22.4.1" /& gt; <id nullFlavor="NA" /> <code codeSystem=" local" code="PT" displayName="PROTHROMBIN TIME WITH INR&quot ; /> <statusCode code="completed" /> <component& gt; <observation moodCode="EVN" classCode="OBS"&gt ; <templateId root="2.16.840.1.861167.10.20.22.4.2" /> <id nullFlavor="NA" /> <code codeSystem=& quot;local" code="INRX" displayName="INTERNATIONAL NORMAL RATIO" /> <statusCode code="completed" /> &lt ;effectiveTime value="539887173791" /> <value unit=& quot;" xsi:type="PQ" value="1.7" /> < interpretationCode codeSystem="local" code="*" /> <referenceRange> <observationRange> < text>0.9-1.1</text> </observationRange> </ referenceRange> </observation> </component> < component> <observation moodCode="EVN" classCode=" OBS"> <templateId root="2.16.840.1.427150.10.20.22.4.2& quot; /> <id nullFlavor="NA" /> <code codeSystem="local" code="PTPAT" displayName=" PROTHROMBIN TIME" /> <statusCode code="completed" /> <effectiveTime value="[id number]" /> & lt;valueunit="sec" xsi:type="PQ" value="17.1" /&gt ; <interpretationCode codeSystem="local" code="*&quot ; /> <referenceRange> <observationRange> & lt;text>9.3-12.2</text> </observationRange> & lt;/referenceRange> </observation> </component> & lt;/organizer> </entry> <entry> <organizer moodCode=&quot ;EVN" classCode="BATTERY"> <templateId root=" [id number]" /> <id nullFlavor="NA&quot ; /> <code codeSystem="local" code="METAB" displayName="METABOLIC PANEL, BASIC" /> <statusCode code=& quot;completed" /> <component> <observation moodCode="EVN" classCode="OBS"> <templateId root="2.16.840.1.193117.10.20.22.4.2" /> <id nullFlavor ="NA" /> <code codeSystem="local" code=" K" displayName="POTASSIUM" /> <statusCode code=& quot;completed" /> <effectiveTime value="621107044628" /& gt; <value unit="mmol/L"xsi:type="PQ" value=& quot;4.3" /> <referenceRange> < observationRange> <text>3.5-5.3</text> & lt;/observationRange> </referenceRange> </ observation> </component> <component> < observation moodCode="EVN" classCode="OBS"> < templateId root="2.16.840.1.974456.10.20.22.4.2" /> < id nullFlavor="NA" /> <code codeSystem="local&quot ; code="eGFR" displayName="ESTGFR (MDRD)" /> &lt ;statusCode code="completed" /> <effectiveTime value=& quot;512538282087" /> <value unit="mL/min" xsi: type="PQ" value="> 60" /> < referenceRange> <observationRange> <text> > 59</text> </observationRange> </ referenceRange> </observation> </component> < component> <observation moodCode="EVN" classCode=" OBS"> <templateId root="2.16.840.1.687613.10..22.4.2& quot; /> <id nullFlavor="NA" /> <code codeSystem="local" code="GAP" displayName="ANION GAP& quot; /> <statusCode code="completed" /> & lt;effectiveTime value="657147206970" /> <value unit=& quot;mmol/L" xsi:type="PQ"value="8" /> < referenceRange> <observationRange> <text>5-15< /text> </observationRange> </referenceRange> </observation> </component> <component> <observation moodCode="EVN" classCode="OBS"> <templateId root="2.16.840.1.241279.10.20.22.4.2" /> <id nullFlavor="NA" /> <code codeSystem=" local" code="GLU" displayName="GLUCOSE" /> <statusCode code="completed" /> <effectiveTime value ="049054369120"/> <value unit="mg/dL" xsi: type="PQ" value="82" /> <referenceRange> <observationRange> <text>70-99</text> </observationRange> </referenceRange> </ observation> </component> <component> < observation moodCode="EVN"classCode="OBS"> < templateId root="2.16.840.1.405842.10.20.22.4.2" /> < id nullFlavor="NA" /> <code codeSystem="local&quot ; code="CA" displayName="CALCIUM" /> < statusCode code="completed" /> <effectiveTime value=& quot;485467572772" /> <value unit="mg/dL" xsi:type ="PQ" value="8.4" /> <interpretationCode codeSystem="local" code="*" /> < referenceRange> <observationRange> <text> 8.5-10.1</text> </observationRange> </ referenceRange> </observation> </component> < component> <observation moodCode="EVN" classCode=" OBS"><templateId root="2.16.840.1.887449.10.20.22.4.2" /&gt ; <id nullFlavor="NA" /> <code codeSystem=& quot;local" code="BUN" displayName="BLOOD UREA NITROGEN&quot ; /> <statusCode code="completed" /> < effectiveTime value="626747538403" /> <value unit=&quot ;mg/dL" xsi:type="PQ" value="17" /> < referenceRange> <observationRange> <text> 7-20</text> </observationRange></referenceRange> </observation> </component> <component> & lt;observation moodCode="EVN" classCode="OBS"> & lt;templateId root="2.16.840.1.915410.10.20.22.4.2" /> &lt ;id nullFlavor="NA" /> <code codeSystem="local&quot ; code="CREAT" displayName="CREATININE" /> < statusCode code="completed" /> <effectiveTime value=& quot;285893403799" /> <value unit="mg/dL" xsi:type ="PQ" value="0.9" /> <referenceRange> <observationRange> <text>0.8-1.3</text> & lt;/observationRange> </referenceRange> </ observation> </component> <component> < observation moodCode="EVN" classCode="OBS"> < templateId root="2.16.840.1.606083.10.20.22.4.2" /> < id nullFlavor="NA" /> <code codeSystem="local&quot ; code="NA" displayName="SODIUM" /> < statusCode code="completed" /> <effectiveTime value=& quot;585181224188" /> <value unit="mmol/L" xsi: type="PQ" value="132" /> <interpretationCode codeSystem="local" code="*" /> < referenceRange> <observationRange> <text> 135-148</text> </observationRange> </ referenceRange> </observation> </component> < component> <observation moodCode="EVN" classCode=" OBS"> <templateId root="2.16.840.1.020669.10..22.4.2& quot; /> <id nullFlavor="NA" /> <code codeSystem="local" code="CL" displayName="CHLORIDE&quot ; /> <statusCode code="completed" /> < effectiveTime value="430060994694" /> <value unit=&quot ;mmol/L" xsi:type="PQ" value="104" /> < referenceRange> <observationRange> <text>98-110&lt ;/text> </observationRange> </referenceRange&gt ; </observation> </component> <component> <observation moodCode="EVN" classCode="OBS"> &lt ;templateId root="2.16.840.1.530347.10..22.4.2" /> < id nullFlavor="NA" /> <code codeSystem="local&quot ; code="CO2" displayName="CARBON DIOXIDE" /> &lt ;statusCode code="completed" /> <effectiveTime value=& quot;180700634762" /> <value unit="mmol/L" xsi: type="PQ" value="20" /> <interpretationCode codeSystem="local" code="*" /> < referenceRange> <observationRange> <text>21-32& lt;/text> </observationRange> </referenceRange& gt; </observation> </component> </organizer> & lt;/entry> <entry> <organizer moodCode="EVN" classCode ="BATTERY"> <templateId root=" 2.16.840.1.280491.10.20.22.4.1" /> <id nullFlavor="NA&quot ; /> <code codeSystem="local" code="CBC" displayName="CBC" /> <statusCode code="completed&quot ; /> <component> <observation moodCode="EVN" classCode="OBS"> <templateId root=" 2.16.840.1.174049.10.20.22.4.2" /> <id nullFlavor="NA& quot; /> <code codeSystem="local" code="MCH" displayName="MEAN CELL HGB" /> <statusCode code=" completed" /> <effectiveTime value="493183825991" /> <value unit="pg" xsi:type="PQ" value=&quot ;34.7" /> <interpretationCode codeSystem="local" code="*" /> <referenceRange> < observationRange> <text>27.0-33.0</text> & lt;/observationRange> </referenceRange> </ observation> </component> <component> < observation moodCode="EVN" classCode="OBS"> < templateId root="2.16.840.1.825499.10.20.22.4.2" /> <id nullFlavor="NA" /> <code codeSystem="local" code="MCHC" displayName="MEAN CELL HGB CONCENTRATION" /> <statusCode code="completed" /> < effectiveTime value="489743460891" /><value unit="g/dl&quot ; xsi:type="PQ" value="34.9" /> < referenceRange> <observationRange> <text> 32.0-36.0</text> </observationRange> </ referenceRange> </observation> </component> < component> <observation moodCode="EVN" classCode=" OBS"> <templateId root="2.16.840.1.404305.10..22.4.2& quot; /> <id nullFlavor="NA" /> <code codeSystem="local" code="MCV" displayName="MEAN CELL VOLUME" /> <statusCode code="completed" /> <effectiveTime value="453143925445" /> <value unit="fl" xsi:type="PQ" value="99.5" /> <referenceRange> <observationRange> < text>80.0-100.0</text> </observationRange> & lt;/referenceRange> </observation> </component> <component> <observation moodCode="EVN" classCode=& quot;OBS"> <templateId root=" 2.16.840.1.755654.10.20.22.4.2" /> <id nullFlavor="NA& quot; /> <code codeSystem="local" code="RBC" displayName="RED BLOOD CELL" /> <statusCode code=" completed" /> <effectiveTime value="003364699861" /& gt; <value unit="m/cumm" xsi:type="PQ" value=& quot;2.61" /> <interpretationCode codeSystem="local& quot; code="*" /> <referenceRange> < observationRange> <text>4.00-6.00</text> </observationRange> </referenceRange> </observation> </component> <component> <observation moodCode= "EVN" classCode="OBS"> <templateId root=&quot ;2.16.840.1.041189.10.20.22.4.2" /> <id nullFlavor="NA& quot; /> <code codeSystem="local" code="RDW" displayName="RED CELL DISTRIBUTION WIDTH" /> < statusCode code="completed" /> <effectiveTime value=& quot;835004883474" /> <value unit="%" xsi: type="PQ" value="15.4" /> <referenceRange&gt ; <observationRange> <text>11.0-15.6</ text> </observationRange> </referenceRange> </observation> </component> <component> & lt;observation moodCode="EVN" classCode="OBS"> & lt;templateId root="2.16.840.1.848109.10.20.22.4.2" /> &lt ;id nullFlavor="NA"/> <code codeSystem="local&quot ; code="WBC" displayName="WHITE BLOOD CELL" /> & lt;statusCode code="completed" /> <effectiveTime value= "146065323127" /> <value unit="k/cumm" xsi: type="PQ" value="6.8" /> <referenceRange> <observationRange> <text>5.0-10.0</text& gt; </observationRange> </referenceRange> </observation> </component> <component> &lt ;observation moodCode="EVN" classCode="OBS"> &lt ;templateId root="2.16.840.1.540190.10..22.4.2" /> < id nullFlavor="NA" /> <code codeSystem="local" code=& quot;HGBT" displayName="HEMOGLOBIN" /> < statusCode code="completed" /> <effectiveTime value=& quot;653772998344" /> <value unit="gm/dL" xsi:type ="PQ" value="9.1" /> <interpretationCode codeSystem="local" code="*" /> <referenceRange > <observationRange> <text>14.0-18.0</ text> </observationRange> </referenceRange> </observation> </component> <component> <observation moodCode="EVN" classCode="OBS"> <templateId root="2.16.840.1.588534.10.20.22.4.2" /> <id nullFlavor="NA" /> <code codeSystem=" local" code="HCTT" displayName="HEMATOCRIT" /> <statusCode code="completed" /> <effectiveTime value="562244980001" /> <value unit="%& quot; xsi:type="PQ" value="26.0" /> < interpretationCode codeSystem="local" code="*" /> <referenceRange> <observationRange> < text>40.0-54.0</text> </observationRange> &lt ;/referenceRange> </observation> </component> & lt;component> <observation moodCode="EVN" classCode=&quot ;OBS"> <templateId root="2.16.840.1.775543.10.20.22.4.2 " /> <id nullFlavor="NA" /> <code codeSystem="local" code="PLT"displayName="PLATELET COUNT" /> <statusCode code="completed" /> <effectiveTime value="875760325114" /> <value unit="k/cumm" xsi:type="PQ" value="138" /> <interpretationCode codeSystem="local" code="*" /& gt; <referenceRange> <observationRange> <text>150-450</text> </observationRange> &lt ;/referenceRange> </observation> </component> < /organizer></entry> <entry> <organizer moodCode="EVN& quot; classCode="BATTERY"> <templateId root=" 2.16.840.1.950741.10.20.22.4.1" /> <id nullFlavor="NA&quot ; /> <code codeSystem="local" code="PT" displayName="PROTHROMBIN TIME WITH INR" /> <statusCode code ="completed" /> <component> <observation moodCode="EVN" classCode="OBS"> <templateId root=&quot ;216.840.1.047244.10..22.4.2" /> <id nullFlavor="NA& quot; /> <code codeSystem="local" code="INRX&quot ; displayName="INTERNATIONAL NORMAL RATIO" /> < statusCode code="completed" /> <effectiveTime value=" 006071480106" /> <value unit="" xsi:type="PQ& quot; value="1.7" /> <interpretationCode codeSystem=& quot;local" code="*" /> <referenceRange> <observationRange> <text>0.9-1.1</text> </observationRange> </referenceRange> </ observation> </component> <component> < observation moodCode="EVN" classCode="OBS"> < templateId root="216.840.1.227662.10.20.22.4.2" /> < id nullFlavor="NA" /> <code codeSystem="local" code=& quot;PTPAT" displayName="PROTHROMBIN TIME" /> < statusCode code="completed" /> <effectiveTime value=& quot;674065150942" /> <value unit="sec" xsi:type=& quot;PQ" value="17.1" /> <interpretationCode codeSystem="local" code="*"/> <referenceRange > <observationRange> <text>9.3-12.2</ text> </observationRange> </referenceRange> </observation> </component> </organizer> </ entry> <entry> <organizer moodCode="EVN" classCode=& quot;BATTERY"> <templateId root=" 2.16.840.1.484329.10.20.22.4.1" /> <id nullFlavor="NA&quot ; /> <code codeSystem="local" code="METAB" displayName="METABOLIC PANEL, BASIC" /> <statusCode code=& quot;completed" /> <component> <observation moodCode="EVN" classCode="OBS"> <templateId root="2.16.840.1.336768.10.20.22.4.2" /> <id nullFlavor ="NA" /> <code codeSystem="local" code=" K" displayName="POTASSIUM" /> <statusCode code=& quot;completed" /> <effectiveTime value="737248727524& quot; /> <value unit="mmol/L" xsi:type="PQ" value="4.3" /> <referenceRange> < observationRange> <text>3.5-5.3</text> & lt;/observationRange> </referenceRange> </ observation> </component> <component> < observation moodCode="EVN" classCode="OBS"> < templateId root="2.16.840.1.210571.10.20.22.4.2" /> < id nullFlavor="NA" /> <code codeSystem="local&quot ; code="eGFR" displayName="EST GFR (MDRD)" /> & lt;statusCode code="completed" /> <effectiveTime value= "228136682961" /> <value unit="mL/min" xsi: type="PQ" value="> 60" /> <referenceRange> <observationRange> <text>> 59</ text> </observationRange> </referenceRange> </observation> </component> <component> <observation moodCode="EVN"classCode="OBS"> <templateId root="2.16.840.1.198993.10..22.4.2" /> <id nullFlavor="NA" /> <code codeSystem=" local" code="GAP" displayName="ANION GAP" /> <statusCode code="completed" /> <effectiveTime value="404682360763" /> <valueunit="mmol/L" xsi:type="PQ" value="8" /> <referenceRange&gt ; <observationRange> <text>5-15</text&gt ; </observationRange> </referenceRange> & lt;/observation> </component> <component> < observation moodCode="EVN" classCode="OBS"> < templateId root="2.16.840.1.983169.10.20.22.4.2" /> < id nullFlavor="NA" /> <code codeSystem="local&quot ; code="GLU" displayName="GLUCOSE" /> < statusCode code="completed" /> <effectiveTime value=& quot;066523354492" /> <value unit="mg/dL" xsi:type ="PQ" value="82" /> <referenceRange> <observationRange> <text>70-99</text> </observationRange> </referenceRange> </ observation> </component> <component> < observation moodCode="EVN" classCode="OBS"> < templateId root="2.16.840.1.788408.10.20.22.4.2" /> < id nullFlavor="NA" /> <code codeSystem="local&quot ; code="CA" displayName="CALCIUM"/> < statusCode code="completed" /> <effectiveTime value=& quot;576953012052" /> <value unit="mg/dL" xsi:type ="PQ" value="8.4" /> <interpretationCode codeSystem="local" code="*" /> < referenceRange> <observationRange> <text> 8.5-10.1</text> </observationRange> </ referenceRange> </observation> </component> < component> <observation moodCode="EVN" classCode=" OBS"> <templateId root="2.16.840.1.571544.10..22.4.2& quot; /> <id nullFlavor="NA" /> <code codeSystem="local" code="BUN" displayName="BLOOD UREA NITROGEN" /> <statusCode code="completed" /> <effectiveTime value="880290117229" /> < value unit="mg/dL" xsi:type="PQ" value="17" /> <referenceRange> <observationRange> <text >7-20</text> </observationRange> </ referenceRange> </observation> </component> < component> <observation moodCode="EVN" classCode=" OBS"> <templateId root="2.16.840.1.906914.10..22.4.2& quot; /> <id nullFlavor="NA" /> <code codeSystem="local" code="CREAT" displayName="CREATININE " /> <statusCode code="completed" /> & lt;effectiveTime value="248481571658" /> <value unit=& quot;mg/dL" xsi:type="PQ" value="0.9" /> & lt;referenceRange> <observationRange> <text& gt;0.8-1.3</text> </observationRange> </ referenceRange> </observation> </component> < component> <observation moodCode="EVN" classCode=" OBS"> <templateId root="2.16.840.1.671328.10.20.22.4.2& quot; /> <id nullFlavor="NA" /> <code codeSystem="local" code="NA" displayName="SODIUM" /> <statusCode code="completed" /> < effectiveTime value="828490375226" /> <value unit=&quot ;mmol/L" xsi:type="PQ" value="132" /> < interpretationCode codeSystem="local" code="*" /> <referenceRange> <observationRange> <text >135-148</text> </observationRange> </ referenceRange> </observation> </component> < component> <observation moodCode="EVN" classCode=" OBS"> <templateId root="2.16.840.1.353897.10.20.22.4.2& quot; /> <id nullFlavor="NA" /> <code codeSystem="local" code="CL" displayName="CHLORIDE&quot ; /> <statusCode code="completed" /> < effectiveTime value="190521705645" /> <value unit=&quot ;mmol/L" xsi:type="PQ" value="104" /> < referenceRange> <observationRange> <text> 98-110</text> </observationRange> </ referenceRange> </observation> </component> < component> <observation moodCode="EVN" classCode=" OBS"> <templateId root="2.16.840.1.309835.10.20.22.4.2& quot; /> <id nullFlavor="NA" /> <code codeSystem="local" code="CO2" displayName="CARBON DIOXIDE" /> <statusCode code="completed" /> <effectiveTime value="301544351983" /> <value unit="mmol/L" xsi:type="PQ" value="20" /> <interpretationCode codeSystem="local" code="*" /&gt ; <referenceRange> <observationRange> <text>21-32</text> </observationRange> </referenceRange> </observation> </component> </organizer> </entry> <entry> <organizer moodCode=& quot;EVN" classCode="BATTERY"> <templateId root=" 2.16.840.1.777478.10.20.22.4.1" /> <id nullFlavor="NA&quot ; /> <code codeSystem="local" code="CBC" displayName="CBC" /> <statusCode code="completed&quot ; /> <component> <observation moodCode="EVN" classCode="OBS"> <templateId root=" 2.16.840.1.055390.10.20.22.4.2" /> <id nullFlavor="NA& quot; /> <code codeSystem="local" code="MCH" displayName="MEAN CELL HGB" /> <statusCode code=" completed" /> <effectiveTime value="089045329607" /> <value unit="pg" xsi:type="PQ" value="34.7& quot; /> <interpretationCode codeSystem="local" code=& quot;*" /> <referenceRange> < observationRange> <text>27.0-33.0</text> & lt;/observationRange> </referenceRange> </ observation> </component> <component> < observation moodCode="EVN" classCode="OBS"> < templateId root="2.16.840.1.548384.10.20.22.4.2" /> < id nullFlavor="NA" /> <code codeSystem="local" code=& quot;MCHC" displayName="MEAN CELL HGB CONCENTRATION" /> <statusCode code="completed" /> <effectiveTime value="804506352346" /> <value unit="g/dl" xsi:type="PQ" value="34.9" /> <referenceRange > <observationRange> <text>32.0-36.0</ text> </observationRange> </referenceRange> </observation> </component> <component> <observation moodCode="EVN" classCode="OBS"> <templateId root="2.16.840.1.154198.10.20.22.4.2" /> <id nullFlavor="NA" /> <code codeSystem="local" code="MCV" displayName="MEAN CELL VOLUME"/> < statusCode code="completed" /> <effectiveTime value=& quot;968478040333" /> <value unit="fl" xsi:type=& quot;PQ" value="99.5" /> <referenceRange> <observationRange> <text>80.0-100.0</text&gt ; </observationRange> </referenceRange> & lt;/observation> </component> <component> < observation moodCode="EVN" classCode="OBS"> < templateId root="2.16.840.1.020119.10.20.22.4.2" /> < id nullFlavor="NA" /> <code codeSystem="local&quot ; code="RBC" displayName="RED BLOOD CELL" /> &lt ;statusCode code="completed" /> <effectiveTime value=& quot;569963861804" /> <value unit="m/cumm" xsi: type="PQ" value="2.61" /> < interpretationCode codeSystem="local" code="*" /> <referenceRange> <observationRange> < text>4.00-6.00</text> </observationRange> &lt ;/referenceRange> </observation> </component> & lt;component> <observation moodCode="EVN" classCode=&quot ;OBS"> <templateId root="2.16.840.1.876173.10.20.22.4.2 " /> <id nullFlavor="NA" /> <code codeSystem="local" code="RDW" displayName="RED CELL DISTRIBUTION WIDTH" /> <statusCode code="completed&quot ; /> <effectiveTime value="958843020588" /> < value unit="%" xsi:type="PQ" value="15.4" /> <referenceRange> <observationRange> & lt;text>11.0-15.6</text> </observationRange> </referenceRange> </observation> </component> <component> <observation moodCode="EVN" classCode=& quot;OBS"> <templateId root=" 2.16.840.1.299612.10.20.22.4.2"/> <id nullFlavor="NA& quot; /> <code codeSystem="local"code="WBC" displayName="WHITE BLOOD CELL" /> <statusCode code=& quot;completed" /> <effectiveTime value="768901460958& quot; /> <value unit="k/cumm" xsi:type="PQ" value="6.8" /> <referenceRange> < observationRange> <text>5.0-10.0</text> </ observationRange> </referenceRange> </observation&gt ; </component> <component> <observation moodCode ="EVN" classCode="OBS"> <templateId root=& quot;2.16.840.1.036378.10.20.22.4.2" /> <id nullFlavor="NA&quot ; /> <code codeSystem="local" code="HGBT" displayName="HEMOGLOBIN" /> <statusCode code=" completed"/> <effectiveTime value="018452821189" / > <value unit="gm/dL" xsi:type="PQ" value=& quot;9.1" /> <interpretationCode codeSystem="local&quot ; code="*" /> <referenceRange> < observationRange> <text>14.0-18.0</text> </observationRange> </referenceRange> </observation > </component> <component> <observation moodCode="EVN" classCode="OBS"> <templateId root="2.16.840.1.086610.10.20.22.4.2" /> <id nullFlavor ="NA" /> <code codeSystem="local" code=" HCTT" displayName="HEMATOCRIT" /> <statusCode code ="completed" /> <effectiveTimevalue="919011125087& quot; /> <value unit="%" xsi:type="PQ&quot ; value="26.0" /> <interpretationCode codeSystem=" local" code="*" /> <referenceRange> <observationRange><text>40.0-54.0</text> </ observationRange> </referenceRange> </observation&gt ; </component> <component> <observation moodCode ="EVN" classCode="OBS"> <templateId root=& quot;216.840.1.971877.10.20.22.4.2" /> <id nullFlavor=&quot ;NA" /> <code codeSystem="local" code="PLT& quot; displayName="PLATELET COUNT" /> <statusCode code=" completed" /> <effectiveTime value="160854813874" /> <value unit="k/cumm" xsi:type="PQ" value=& quot;138"/> <interpretationCode codeSystem="local&quot ; code="*" /><referenceRange> <observationRange > <text>150-450</text> </ observationRange> </referenceRange> </observation&gt ; </component> </organizer> </entry> <entry> <organizer moodCode="EVN" classCode="BATTERY"> <templateId root="2.16.840.1.558577.10.20.22.4.1" /> < id nullFlavor="NA" /> <code codeSystem="local" code="CBCD" displayName="CBC W/DIFF" /> < statusCode code="completed" /> <component> < observation moodCode="EVN" classCode="OBS"> < templateId root="2.16.840.1.274358.10.20.22.4.2" /> < id nullFlavor="NA" /> <code codeSystem="local&quot ; code="EO#" displayName="EOSINOPHIL #" /> < statusCode code="completed" /> <effectiveTime value=& quot;925382924033" /> <valueunit="k/cumm" xsi:type ="PQ" value="0.1" /> <referenceRange> <observationRange> <text>0.1-0.5</text> </observationRange> </referenceRange> &lt ;/observation> </component> <component> < observation moodCode="EVN" classCode="OBS"> < templateId root="2.16.840.1.094852.10.20.22.4.2" /> < id nullFlavor="NA" /> <code codeSystem="local&quot ; code="EO%" displayName="EOSINOPHIL %" /&gt ; <statusCode code="completed" /> < effectiveTime value="794786881051" /> <value unit=&quot ;%" xsi:type="PQ" value="1" /> < interpretationCode codeSystem="local" code="*" /> <referenceRange> <observationRange> <text>2-4 </text> </observationRange> </referenceRange& gt; </observation> </component> <component> <observation moodCode="EVN" classCode="OBS"> <templateId root="2.16.840.1.712835.10.20.22.4.2" /> <id nullFlavor="NA" /> <code codeSystem=&quot ;local" code="GR#" displayName="GRANULOCYTE #" /> <statusCode code="completed" /> < effectiveTime value="137312063655" /> <value unit=&quot ;k/cumm" xsi:type="PQ" value="7.6" /> < referenceRange> <observationRange> <text> 2.0-9.0</text> </observationRange> </ referenceRange> </observation> </component> < component> <observation moodCode="EVN" classCode="OBS&quot ;> <templateId root="2..840.1.944312.10.20.22.4.2" /& gt; <id nullFlavor="NA" /> <code codeSystem=& quot;local" code="GR%" displayName="GRANULOCYTE &amp ;#37;" /> <statusCode code="completed" /> <effectiveTime value="496873401480" /> <value unit="%" xsi:type="PQ" value="80" /> <interpretationCode codeSystem="local"code="*" /& gt; <referenceRange> <observationRange> < text>50-75</text> </observationRange> </ referenceRange> </observation> </component> < component> <observation moodCode="EVN" classCode=" OBS"> <templateId root="2.16.840.1.632914.10.20.22.4.2& quot; /> <id nullFlavor="NA" /> <code codeSystem="local" code="LY#" displayName="LYMPHOCYTE # " /><statusCode code="completed" /> < effectiveTime value="282796142988" /> <value unit=&quot ;k/cumm" xsi:type="PQ" value="1.1" /> < referenceRange> <observationRange> <text> 1.0-4.0</text> </observationRange> </ referenceRange> </observation> </component> < component> <observation moodCode="EVN" classCode=" OBS"> <templateId root="2.16.840.1.842272.10.20.22.4.2& quot; /> <id nullFlavor="NA" /> <code codeSystem="local" code="LY%" displayName=" LYMPHOCYTE %" /> <statusCode code="completed& quot; /> <effectiveTime value="[id number]" /> <value unit="%" xsi:type="PQ" value=" 11" /> <interpretationCode codeSystem="local" code ="*" /> <referenceRange> < observationRange> <text>20-30</text> < /observationRange> </referenceRange> </observation& gt; </component> <component> <observation moodCode= "EVN" classCode="OBS"> <templateId root=&quot ;[id number]" /> <id nullFlavor="NA& quot; /> <code codeSystem="local" code="MCH" displayName="MEAN CELL HGB" /> <statusCode code=" completed" /> <effectiveTime value="524624958880" /> <value unit="pg" xsi:type="PQ" value=&quot ;31.3" /> <referenceRange> <observationRange > <text>27.0-33.0</text> </ observationRange> </referenceRange> </observation&gt ; </component> <component> <observation moodCode ="EVN" classCode="OBS"> <templateId root=& quot;2.16.840.1.935282.10.20.22.4.2" /> <id nullFlavor=&quot ;NA" /> <code codeSystem="local" code="[facility]& quot; displayName="MEAN CELL HGB CONCENTRATION" /> < statusCode code="completed" /> <effectiveTime value=& quot;906856390592" /> <value unit="g/dL" xsi:type= "PQ" value="33.4" /> <referenceRange> <observationRange> <text>32.0-37.0</text> </observationRange> </referenceRange> &lt ;/observation> </component> <component> < observation moodCode="EVN" classCode="OBS"> < templateId root="2.16.840.1.752448.10.20.22.4.2" /> < id nullFlavor="NA" /> <code codeSystem="local&quot ; code="MCV" displayName="MEAN CELL VOLUME" /> & lt;statusCode code="completed" /> <effectiveTime value=& quot;149303974412" /> <value unit="fl"xsi:type=& quot;PQ" value="93.7" /> <referenceRange> <observationRange> <text>80.0-100.0</text&gt ; </observationRange> </referenceRange> & lt;/observation> </component> <component> < observation moodCode="EVN" classCode="OBS"> < templateId root="2.16.840.1.415015.10..22.4.2" /> < id nullFlavor="NA" /> <code codeSystem="local&quot ; code="MO#" displayName="MONOCYTE #" /> < statusCode code="completed" /> <effectiveTime value=& quot;775291119984" /> <value unit="k/cumm" xsi: type="PQ" value="0.7" /> <referenceRange> <observationRange> <text>0.1-1.0</text& gt; </observationRange> </referenceRange> </observation> </component> <component> &lt ;observation moodCode="EVN" classCode="OBS"> &lt ;templateId root="2.16.840.1.646061.10..22.4.2" /> < id nullFlavor="NA" /> <code codeSystem="local" code= "MO%" displayName="MONOCYTE %" /> <statusCode code="completed" /> <effectiveTime value="056401522206" /> <value unit="%& quot; xsi:type="PQ" value="8" /> < interpretationCode codeSystem="local" code="*" /> <referenceRange> <observationRange> < text>4-6</text> </observationRange> </ referenceRange> </observation> </component> < component> <observation moodCode="EVN" classCode=" OBS"> <templateId root="2.16.840.1.001032.10.20.22.4.2& quot; /> <id nullFlavor="NA" /> <code codeSystem="local" code="RBC" displayName="RED BLOOD CELL" /> <statusCode code="completed" /> <effectiveTime value="707946641308" /> <value unit="m/cumm" xsi:type="PQ" value="4.31" /> <referenceRange> <observationRange> &lt ;text>4.00-6.00</text> </observationRange> & lt;/referenceRange> </observation> </component> <component> <observation moodCode="EVN" classCode=& quot;OBS"> <templateId root=" 2.16.840.1.772131.10.20.22.4.2" /> <id nullFlavor="NA& quot; /> <code codeSystem="local" code="RDW" displayName="RED CELL DISTRIBUTION WIDTH" /> < statusCode code="completed" /> <effectiveTime value=& quot;200218324622" /> <value unit="%" xsi: type="PQ" value="13.3" /> <referenceRange&gt ; <observationRange> <text>11.0-15.6</ text> </observationRange> </referenceRange> </observation> </component> <component> <observation moodCode="EVN" classCode="OBS"> <templateId root="2.16.840.1.985390.10.20.22.4.2" /> <id nullFlavor="NA" /> <code codeSystem=" local" code="WBC" displayName="WHITE BLOOD CELL" /> <statusCodecode="completed" /> < effectiveTime value="756764946567" /> <value unit="k/ cumm" xsi:type="PQ" value="9.4" /> < referenceRange> <observationRange> <text> 5.0-10.0</text> </observationRange> </ referenceRange> </observation> </component> < component> <observation moodCode="EVN" classCode=" OBS"> <templateId root="2.16.840.1.722819.10.20.22.4.2& quot; /> <id nullFlavor="NA" /> <code codeSystem="local" code="HGBT" displayName="HEMOGLOBIN& quot; /> <statusCode code="completed" /> & lt;effectiveTime value="684593461867" /> <value unit=& quot;gm/dL" xsi:type="PQ" value="13.5" /> & lt;interpretationCode codeSystem="local" code="*" /> <referenceRange><observationRange> <text> 14.0-18.0</text> </observationRange> </ referenceRange> </observation> </component> < component> <observation moodCode="EVN" classCode=" OBS"> <templateId root="2.16.840.1.243672.10.20.22.4.2" /& gt; <id nullFlavor="NA" /> <code codeSystem ="local" code="HCTT" displayName="HEMATOCRIT" /&gt ; <statusCode code="completed" /> < effectiveTime value="212167021085" /> <value unit=&quot ;%" xsi:type="PQ" value="40.4" /> & lt;referenceRange> <observationRange> <text& gt;40.0-54.0</text> </observationRange> </ referenceRange> </observation> </component> < component> <observation moodCode="EVN" classCode=" OBS"> <templateId root="2.16.840.1.276678.10.20.22.4.2& quot; /> <id nullFlavor="NA" /> <code codeSystem="local" code="PLT" displayName="PLATELET COUNT" /> <statusCode code="completed" /> <effectiveTimevalue="919666589177" /> <value unit="k/cumm" xsi:type="PQ" value="154" /> <referenceRange> <observationRange> < text>150-400</text> </observationRange> </ referenceRange> </observation> </component> </ organizer> </entry> <entry> <organizer moodCode="EVN " classCode="BATTERY"> <templateId root=" 2.16.840.1.280055.10.20.22.4.1" /> <id nullFlavor="NA&quot ; /> <code codeSystem="local" code="LIVER" displayName="HEPATICFUNCTION PANEL" /> <statusCode code=& quot;completed" /> <component> <observation moodCode="EVN" classCode="OBS"> <templateId root="2.16.840.1.328151.10.20.22.4.2" /> <id nullFlavor ="NA" /> <code codeSystem="local" code=" BILUC" displayName="BILI UNCONJUGATED" /> < statusCode code="completed" /> <effectiveTime value=& quot;414973632530" /> <value unit="mg/dL" xsi:type ="PQ" value="1.0" /> <interpretationCode codeSystem="local" code="*" /> < referenceRange> <observationRange> <text> 0.0-0.7</text> </observationRange> </ referenceRange> </observation> </component> < component> <observation moodCode="EVN" classCode=" OBS"> <templateId root="2.16.840.1.982301.10.20.22.4.2& quot; /> <id nullFlavor="NA" /> <code codeSystem="local" code="AST" displayName="AST/SGOT& quot; /> <statusCode code="completed" /> & lt;effectiveTime value="339753265447" /> <value unit=& quot;Units/L" xsi:type="PQ" value="21" /> < referenceRange> <observationRange> <text> 10-37</text> </observationRange> </ referenceRange> </observation> </component> < component> <observation moodCode="EVN" classCode=" OBS"> <templateId root="2.16.840.1.361527.10.20.22.4.2& quot;/> <id nullFlavor="NA" /> <code codeSystem="local"code="ALT" displayName="ALT/SGPT&quot ; /> <statusCode code="completed" /> < effectiveTime value="366193300600" /> <value unit=&quot ;Units/L" xsi:type="PQ" value="20" /> < referenceRange> <observationRange> <text> < 66</text> </observationRange> </referenceRange& gt; </observation> </component> <component> <observation moodCode="EVN" classCode="OBS"> <templateId root="2.16.840.1.329944.10.20.22.4.2" /> <id nullFlavor="NA" /> <code codeSystem=&quot ;local" code="TP" displayName="TOTAL PROTEIN" /> <statusCode code="completed" /> < effectiveTime value="142211475757" /> <value unit=&quot ;gm/dL" xsi:type="PQ" value="6.8" /> < referenceRange> <observationRange> <text>6.4-8.2< /text> </observationRange> </referenceRange> </observation> </component> <component> <observation moodCode="EVN" classCode="OBS"> < templateId root="2.16.840.1.027836.10.20.22.4.2" /> < id nullFlavor="NA" /> <code codeSystem="local&quot ; code="ALB" displayName="ALBUMIN" /> < statusCode code="completed" /> <effectiveTime value=& quot;861606994401" /> <value unit="gm/dL" xsi:type ="PQ" value="3.5" /> <referenceRange> <observationRange> <text>3.4-5.0</text> </observationRange> </referenceRange> &lt ;/observation> </component> <component> < observation moodCode="EVN" classCode="OBS"> < templateId root="2.16.840.1.824171.10.20.22.4.2" /> < id nullFlavor="NA" /> <code codeSystem="local" code=& quot;BILTOT" displayName="BILI TOTAL" /> < statusCode code="completed" /> <effectiveTime value=& quot;461346199419" /> <value unit="mg/dL" xsi:type ="PQ" value="1.2" /> <interpretationCode codeSystem="local" code="*" /> < referenceRange> <observationRange> <text> 0.0-1.0</text> </observationRange> </ referenceRange> </observation> </component> < component> <observation moodCode="EVN" classCode=" OBS"> <templateId root="2.16.840.1.760635.10.20.22.4.2& quot; /> <id nullFlavor="NA" /> <code codeSystem="local" code="ALKP" displayName="ALKALINE PHOSPHATASE TOTAL" /> <statusCode code="completed&quot ; /> <effectiveTime value="187900322679" /> <value unit="IU/L" xsi:type="PQ" value="81" / > <referenceRange> <observationRange> <text>45-117</text> </observationRange> </referenceRange> </observation> </component> <component> <observation moodCode="EVN" classCode=& quot;OBS"> <templateId root=" 2.16.840.1.339248.10.20.22.4.2"/> <id nullFlavor="NA& quot; /> <code codeSystem="local"code="BILC" displayName="BILI CONJUGATED" /> <statusCode code=&quot ;completed" /> <effectiveTime value="371712254097&quot ; /> <value unit="mg/dL" xsi:type="PQ" value= "0.2" /> <referenceRange> < observationRange> <text>0.0-0.3</text> </ observationRange> </referenceRange> </observation&gt ; </component> </organizer> </entry> <entry> <organizer moodCode="EVN" classCode="BATTERY"> <templateId root="2.16.840.1.878773.10.20.22.4.1" /> < id nullFlavor="NA" /> <code codeSystem="local" code="PT" displayName="PROTHROMBIN TIME WITH INR" /> <statusCode code="completed" /> <component> <observation moodCode="EVN" classCode="OBS"> <templateId root="2.16.840.1.381684.10.20.22.4.2"/> &lt ;id nullFlavor="NA" /> <code codeSystem="local& quot;code="INRX" displayName="INTERNATIONAL NORMAL RATIO" /& gt; <statusCode code="completed" /> < effectiveTime value="847246878189" /> <value unit="& quot; xsi:type="PQ" value="2.3" /> < interpretationCode codeSystem="local" code="*" /> <referenceRange> <observationRange> < text>0.9-1.1</text> </observationRange> </ referenceRange> </observation> </component> < component> <observation moodCode="EVN" classCode=" OBS"> <templateId root="2.16.840.1.845692.10.20.22.4.2& quot; /> <id nullFlavor="NA" /> <code codeSystem="local" code="PTPAT" displayName=" PROTHROMBIN TIME" /> <statusCode code="completed" /> <effectiveTime value="733371677417" /> & lt;value unit="sec" xsi:type="PQ" value="25.3" /& gt; <interpretationCode codeSystem="local" code="*& quot; /> <referenceRange> <observationRange> <text>9.3-12.2</text> </observationRange > </referenceRange> </observation> </component&gt ; </organizer></entry> <entry> <organizer moodCode=& quot;EVN" classCode="BATTERY"> <templateId root=" 2.16.840.1.569330.10.20.22.4.1" /> <id nullFlavor="NA&quot ; /> <code codeSystem="local" code="CBCD" displayName="CBC W/DIFF" /> <statusCode code=" completed" /> <component> <observation moodCode=& quot;EVN" classCode="OBS"> <templateId root=" 2.16.840.1.748969.10..22.4.2" /> <id nullFlavor="NA& quot; /> <code codeSystem="local" code="EO#" displayName="EOSINOPHIL#" /> <statusCode code=" completed" /> <effectiveTime value="272414231450" /> <value unit="k/cumm" xsi:type="PQ"value=& quot;0.1" /> <referenceRange> < observationRange> <text>0.1-0.5</text> </ observationRange> </referenceRange> </observation&gt ; </component> <component> <observation moodCode ="EVN" classCode="OBS"> <templateId root=& quot;2.16.840.1.647283.10.20.22.4.2" /> <id nullFlavor=&quot ;NA" /> <code codeSystem="local" code="EO&amp ;#37;" displayName="EOSINOPHIL %" /> < statusCode code="completed" /> <effectiveTime value=& quot;071544936750" /> <value unit="%" xsi: type="PQ" value="1" /> <interpretationCode codeSystem="local" code="*" /> < referenceRange> <observationRange> <text> 2-4</text> </observationRange> </ referenceRange> </observation> </component> < component> <observation moodCode="EVN" classCode=" OBS"> <templateId root="2.16.840.1.691192.10.20.22.4.2& quot; /> <id nullFlavor="NA" /> <code codeSystem="local" code="GR#" displayName="GRANULOCYTE #" /> <statusCode code="completed" /> <effectiveTime value="284953994932" /> <value unit=&quot ;k/cumm" xsi:type="PQ" value="7.6" />< referenceRange> <observationRange> <text> 2.0-9.0</text> </observationRange> </ referenceRange> </observation> </component> < component> <observation moodCode="EVN" classCode=" OBS"> <templateId root="2..840.1.216702.10..22.4.2& quot; /> <id nullFlavor="NA" /> <code codeSystem="local" code="GR%" displayName=" GRANULOCYTE %" /> <statusCodecode="completed& quot; /> <effectiveTime value="952504588254" /> <value unit="%" xsi:type="PQ" value="80&quot ; /> <interpretationCode codeSystem="local" code="*" / > <referenceRange> <observationRange> <text>50-75</text> </observationRange> </referenceRange> </observation> </component&gt ; <component> <observation moodCode="EVN" classCode="OBS"> <templateId root=" 2.16.840.1.895572.10.20.22.4.2" /> <id nullFlavor="NA& quot; /> <code codeSystem="local" code="LY#" displayName="LYMPHOCYTE #" /> <statusCode code=" completed" /> <effectiveTime value="623330959649" / > <value unit="k/cumm" xsi:type="PQ" value=& quot;1.1" /> <referenceRange><observationRange> <text>1.0-4.0</text> </observationRange&gt ; </referenceRange> </observation> </ component> <component> <observation moodCode="EVN& quot; classCode="OBS"><templateId root=" 2.16.840.1.119560.10.20.22.4.2" /> <id nullFlavor="NA& quot; /> <code codeSystem="local" code="LY&#37 ;" displayName="LYMPHOCYTE %" /> < statusCode code="completed" /> <effectiveTime value=" 106949998075" /> <value unit="%" xsi:type= "PQ" value="11" /> <interpretationCode codeSystem="local" code="*" /> < referenceRange> <observationRange> <text> 20-30</text> </observationRange> </ referenceRange> </observation> </component> < component> <observation moodCode="EVN" classCode="OBS& quot;> <templateId root="2.16.840.1.474504.10.20.22.4.2&quot ; /> <id nullFlavor="NA" /> <code codeSystem="local" code="MCH" displayName="MEAN CELL HGB" /> <statusCode code="completed" /> <effectiveTime value="287069068197" /> <value unit="pg" xsi:type="PQ" value="31.3" /> <referenceRange> <observationRange> <text>27.0- 33.0</text> </observationRange> </ referenceRange> </observation> </component> < component> <observation moodCode="EVN" classCode=" OBS"> <templateId root="2.16.840.1.632047.10.20.22.4.2& quot; /> <id nullFlavor="NA" /> <code codeSystem="local" code="[facility]" displayName="MEAN CELL HGB CONCENTRATION" /> <statusCode code="completed&quot ; /> <effectiveTime value="559733431339" /> <value unit="g/dL" xsi:type="PQ" value="33.4&quot ; /> <referenceRange> <observationRange>< text>32.0-37.0</text> </observationRange> &lt ;/referenceRange> </observation> </component> & lt;component> <observation moodCode="EVN" classCode=&quot ;OBS"> <templateId root="2.16.840.1.789389.10.20.22.4.2 " /> <id nullFlavor="NA" /> <code codeSystem="local" code="MCV" displayName="MEAN CELL VOLUME" /> <statusCode code="completed" /> & lt;effectiveTime value="860085304845" /> <value unit=& quot;fl" xsi:type="PQ" value="93.7" /> < referenceRange> <observationRange> <text> 80.0-100.0</text> </observationRange> </ referenceRange> </observation> </component> < component> <observation moodCode="EVN" classCode=" OBS"> <templateId root="2.16.840.1.345981.10.20.22.4.2& quot; /> <id nullFlavor="NA" /> <code codeSystem="local" code="MO#" displayName="MONOCYTE #& quot; /> <statusCode code="completed" /> & lt;effectiveTime value="337065800296" /> <value unit="k/ cumm" xsi:type="PQ" value="0.7" /> < referenceRange> <observationRange> <text> 0.1-1.0</text> </observationRange> </ referenceRange> </observation> </component> < component> <observation moodCode="EVN" classCode=" OBS"> <templateId root="2.16.840.1.132339.10.20.22.4.2& quot; /> <id nullFlavor="NA" /> <code codeSystem="local" code="MO%" displayName=" MONOCYTE %" /> <statusCode code="completed&quot ; /> <effectiveTime value="912630113307" /> <value unit="%" xsi:type="PQ" value="8& quot; /> <interpretationCode codeSystem="local" code=& quot;*" /> <referenceRange> < observationRange> <text>4-6</text> </ observationRange> </referenceRange> </observation&gt ; </component> <component> <observation moodCode= "EVN" classCode="OBS"> <templateId root=" 2.16.840.1.430339.10.20.22.4.2" /> <id nullFlavor="NA& quot; /> <code codeSystem="local" code="RBC" displayName="RED BLOOD CELL" /> <statusCode code=" completed" /> <effectiveTime value="188386169380" /> <value unit="m/cumm" xsi:type="PQ" value=" 4.31" /> <referenceRange> <observationRange > <text>4.00-6.00</text> </ observationRange> </referenceRange> </observation&gt ; </component> <component> <observation moodCode ="EVN" classCode="OBS"> <templateId root=& quot;2.16.840.1.590990.10.20.22.4.2" /> <id nullFlavor=&quot ;NA" /> <code codeSystem="local" code="RDW& quot; displayName="RED CELL DISTRIBUTION WIDTH" /> < statusCode code="completed" /> <effectiveTime value=" 360927724056" /> <value unit="%" xsi:type= "PQ" value="13.3" /> <referenceRange> <observationRange> <text>11.0-15.6</text&gt ; </observationRange> </referenceRange> & lt;/observation> </component> <component> < observation moodCode="EVN" classCode="OBS"> < templateId root="2.16.840.1.313344.10.20.22.4.2" /> < id nullFlavor="NA" /> <code codeSystem="local&quot ; code="WBC" displayName="WHITE BLOOD CELL" /> & lt;statusCode code="completed" /> <effectiveTime value= "396089746532" /> <value unit="k/cumm" xsi: type="PQ" value="9.4" /> <referenceRange> <observationRange> <text>5.0-10.0</text& gt; </observationRange> </referenceRange> </ observation> </component> <component> < observation moodCode="EVN" classCode="OBS"> < templateId root="2.16.840.1.094265.10.20.22.4.2" /> < id nullFlavor="NA" /> <code codeSystem="local&quot ; code="HGBT" displayName="HEMOGLOBIN" /> < statusCode code="completed" /> <effectiveTime value=& quot;897563386909" /> <value unit="gm/dL" xsi:type ="PQ" value="13.5" /> <interpretationCode codeSystem="local" code="*" /> < referenceRange> <observationRange> <text> 14.0-18.0</text> </observationRange> </ referenceRange> </observation> </component> < component> <observation moodCode="EVN" classCode=" OBS"> <templateId root="2.16.840.1.400929.10.20.22.4.2& quot; /> <id nullFlavor="NA" /> <code codeSystem="local" code="HCTT" displayName="HEMATOCRIT& quot; /> <statusCode code="completed" /> & lt;effectiveTime value="486068688958" /> <value unit=& quot;%" xsi:type="PQ" value="40.4" /> & lt;referenceRange> <observationRange> <text& gt;40.0-54.0</text> </observationRange> </ referenceRange> </observation> </component> < component> <observation moodCode="EVN" classCode=" OBS"> <templateId root="2.16.840.1.007952.10.20.22.4.2& quot; /> <id nullFlavor="NA" /> <code codeSystem="local" code="PLT" displayName="PLATELET COUNT" /> <statusCode code="completed" /> <effectiveTime value="506476912176" /> <value unit="k/cumm" xsi:type="PQ" value="154" /> <referenceRange> <observationRange> & lt;text>150-400</text> </observationRange> </ referenceRange> </observation> </component> </ organizer> </entry> <entry> <organizer moodCode="EVN " classCode="BATTERY"> <templateId root=" 2.16.840.1.374046.10.20.22.4.1" /> <id nullFlavor="NA&quot ; /> <code codeSystem="local" code="LIVER" displayName="HEPATIC FUNCTION PANEL" /> <statusCode code=& quot;completed" /> <component> <observation moodCode="EVN" classCode="OBS"> <templateId root="2.16.840.1.731651.10.20.22.4.2" /> <id nullFlavor ="NA" /> <code codeSystem="local" code=" BILUC" displayName="BILI UNCONJUGATED" /> < statusCode code="completed" /> <effectiveTime value=& quot;714346349223" /> <value unit="mg/dL" xsi:type=" PQ" value="1.0" /> <interpretationCode codeSystem= "local" code="*" /> <referenceRange> <observationRange> <text>0.0-0.7</text> </observationRange> </referenceRange> < /observation> </component> <component> < observation moodCode="EVN" classCode="OBS"> < templateId root="2.16.840.1.946745.10.20.22.4.2" /> < id nullFlavor="NA" /> <code codeSystem="local&quot ; code="AST" displayName="AST/SGOT" /> < statusCode code="completed" /> <effectiveTime value=" 314719542782" /> <value unit="Units/L" xsi:type=& quot;PQ" value="21" /> <referenceRange> <observationRange> <text>10-37</text> </observationRange> </referenceRange> </ observation> </component> <component> < observation moodCode="EVN" classCode="OBS"> < templateId root="2.16.840.1.731830.10.20.22.4.2" /> < id nullFlavor="NA"/> <code codeSystem="local&quot ; code="ALT" displayName="ALT/SGPT" /> < statusCode code="completed" /> <effectiveTime value=& quot;289207274460" /> <value unit="Units/L" xsi: type="PQ" value="20" /> <referenceRange> <observationRange> <text>< 66</text> </observationRange> </referenceRange> < /observation> </component> <component> < observation moodCode="EVN" classCode="OBS"> < templateId root="2.16.840.1.068878.10.20.22.4.2" /> < id nullFlavor="NA" /> <code codeSystem="local&quot ; code="TP" displayName="TOTAL PROTEIN" /> < statusCode code="completed" /> <effectiveTime value=& quot;424598656666" /> <value unit="gm/dL" xsi:type ="PQ" value="6.8" /> <referenceRange> <observationRange> <text>6.4-8.2</text> </observationRange> </referenceRange></ observation> </component> <component> < observation moodCode="EVN" classCode="OBS"> < templateId root="2.16.840.1.942292.10.20.22.4.2" /> < id nullFlavor="NA" /> <code codeSystem="local&quot ; code="ALB" displayName="ALBUMIN" /> < statusCode code="completed" /> <effectiveTime value=& quot;174371196837" /> <value unit="gm/dL" xsi:type=" PQ" value="3.5" /> <referenceRange> <observationRange> <text>3.4-5.0</text> </observationRange> </referenceRange> </ observation> </component> <component> < observation moodCode="EVN" classCode="OBS"> < templateId root="2.16.840.1.513001.10.20.22.4.2" /> <id nullFlavor="NA" /> <code codeSystem="local" code="BILTOT" displayName="BILI TOTAL" /> < statusCode code="completed" /> <effectiveTime value=& quot;760356095366" /> <value unit="mg/dL" xsi:type ="PQ" value="1.2" /> <interpretationCode codeSystem="local" code="*" /> < referenceRange> <observationRange> <text> 0.0-1.0</text> </observationRange> </ referenceRange> </observation> </component> < component> <observation moodCode="EVN" classCode=" OBS"> <templateId root="2.16.840.1.925264.10.20.22.4.2& quot; /> <id nullFlavor="NA" /> <code codeSystem="local" code="ALKP" displayName="ALKALINE PHOSPHATASE TOTAL" /> <statusCode code="completed&quot ; /> <effectiveTime value="850389300885" /> < value unit="IU/L" xsi:type="PQ" value="81" /> <referenceRange> <observationRange> <text>45-117</text> </observationRange> < /referenceRange> </observation> </component> &lt ;component> <observation moodCode="EVN" classCode=" OBS"> <templateId root="2.16.840.1.461606.10.20.22.4.2& quot; /> <id nullFlavor="NA"/> <code codeSystem="local" code="BILC" displayName="BILI CONJUGATED" /> <statusCode code="completed" /> <effectiveTime value="041663645109" /> < value unit="mg/dL" xsi:type="PQ" value="0.2" /&gt ; <referenceRange> <observationRange> <text>0.0-0.3</text> </observationRange> </referenceRange> </observation> </component> </organizer> </entry> <entry> <organizer moodCode=& quot;EVN" classCode="BATTERY"> <templateId root=" 2.16.840.1.357507.10.20.22.4.1" /> <id nullFlavor="NA&quot ; /> <code codeSystem="local" code="PT" displayName="PROTHROMBIN TIME WITH INR" /> <statusCode code ="completed" /> <component> <observation moodCode="EVN" classCode="OBS"> <templateId root="[id number]" /> <id nullFlavor ="NA"/> <code codeSystem="local" code=" INRX" displayName="INTERNATIONAL NORMAL RATIO" /> &lt ;statusCode code="completed" /> <effectiveTime value=& quot;[id number]" /> <value unit="" xsi:type=& quot;PQ" value="2.3" /> <interpretationCode codeSystem="local" code="*" /> < referenceRange> <observationRange> <text>0.9-1.1&lt ;/text> </observationRange> </referenceRange&gt ; </observation> </component> <component> <observation moodCode="EVN" classCode="OBS"> <templateId root="[id number]" /> <id nullFlavor="NA" /> <codecodeSystem=" local" code="PTPAT" displayName="PROTHROMBIN TIME" /&gt ; <statusCode code="completed" /> < effectiveTime value="022640861959" /> <value unit=&quot ;sec" xsi:type="PQ" value="25.3" /> < interpretationCode codeSystem="local" code="*" /> < referenceRange> <observationRange> <text> 9.3-12.2</text> </observationRange> </ referenceRange> </observation> </component> </ organizer> </entry> <entry> <organizer moodCode="EVN " classCode="BATTERY"> <templateId root=" 2.16.840.1.847646.10.20.22.4.1" /> <id nullFlavor="NA&quot ; /> <code codeSystem="local" code="iCHEM8" displayName="CHEM/HEM PROFILE-BEDSIDE" /><statusCode code=" completed" /> <component> <observation moodCode=& quot;EVN" classCode="OBS"> <templateId root=" 2.16.840.1.422252.10.20.22.4.2" /> <id nullFlavor="NA& quot; /> <code codeSystem="local" code="K" displayName="POTASSIUM" /> <statusCode code=" completed" /> <effectiveTime value="912719793670" /> <value unit="mmol/L" xsi:type="PQ" value=&quot ;4.0" /><referenceRange> <observationRange> <text>3.5-5.3</text> </observationRange> </referenceRange> </observation> </component > <component> <observation moodCode="EVN" classCode="OBS"> <templateId root=" 2.16.840.1.243094.10.20.22.4.2" /> <id nullFlavor="NA& quot; /> <code codeSystem="local" code="CMETHOD& quot; displayName="METHOD" /> <statusCode code=" completed" /> <effectiveTime value="480554169393" /> <value unit="" xsi:type="PQ" value=" Bedside" /> <referenceRange> < observationRange> <text /> </ observationRange> </referenceRange> </observation&gt ; </component> <component> <observation moodCode ="EVN" classCode="OBS"> <templateId root=& quot;2.16.840.1.614191.10.20.22.4.2" /> <id nullFlavor=&quot ;NA" /> <code codeSystem="local" code="GAP& quot; displayName="ANION GAP" /> <statusCode code=&quot ;completed" /> <effectiveTimevalue="666849072584" /> <value unit="mmol/L" xsi:type="PQ" value=& quot;14" /> <referenceRange> < observationRange> <text>10-20</text> </ observationRange> </referenceRange> </observation&gt ; </component> <component> <observation moodCode ="EVN" classCode="OBS"> <templateId root=& quot;2.16.840.1.870860.10.20.22.4.2" /> <id nullFlavor=&quot ;NA" /> <code codeSystem="local" code=" HMETHOD" displayName="METHOD" /> <statusCode code=" completed" /> <effectiveTime value="602903919190" /> <value unit="" xsi:type="PQ" value=" Bedside"/> <referenceRange> < observationRange> <text /> </ observationRange> </referenceRange> </observation&gt ; </component> <component> <observation moodCode=& quot;EVN" classCode="OBS"> <templateId root=" 2.16.840.1.935497.10.20.22.4.2" /> <id nullFlavor="NA& quot; /> <code codeSystem="local" code="GLU" displayName="GLUCOSE" /> <statusCode code=" completed" /> <effectiveTime value="486586059533" /> <value unit="mg/dL" xsi:type="PQ" value=& quot;91" /> <referenceRange> <observationRange&gt ; <text>70-99</text> </observationRange& gt; </referenceRange> </observation> </ component><component> <observation moodCode="EVN" classCode="OBS"> <templateId root=" 2.16.840.1.890934.10..22.4.2" /> <id nullFlavor="NA& quot; /> <code codeSystem="local" code="BUN" displayName="BLOOD UREA NITROGEN" /> <statusCode code=& quot;completed" /> <effectiveTime value="511210526102" /& gt; <value unit="mg/dL" xsi:type="PQ" value=& quot;19" /> <referenceRange> < observationRange> <text>7-20</text> </ observationRange> </referenceRange> </observation> </component> <component> <observation moodCode=& quot;EVN" classCode="OBS"> <templateId root=" 2.16.840.1.650042.10.20.22.4.2" /> <id nullFlavor="NA& quot; /> <code codeSystem="local" code="CREAT&quot ; displayName="CREATININE" /> <statusCode code=" completed" /> <effectiveTime value="408523581095" /> <value unit="mg/dL" xsi:type="PQ" value=& quot;0.8" /> <referenceRange> < observationRange> <text>0.8-1.3</text> </ observationRange> </referenceRange> </observation&gt ; </component> <component> <observation moodCode ="EVN" classCode="OBS"> <templateId root=& quot;2.16.840.1.274681.10.20.22.4.2" /> <id nullFlavor=&quot ;NA" /> <code codeSystem="local" code="HGBT& quot; displayName="HEMOGLOBIN" /> <statusCode code=" completed" /> <effectiveTime value="513087602285" /> <value unit="gm/dL" xsi:type="PQ" value=& quot;13.6" /> <interpretationCode codeSystem="local& quot; code="*" /> <referenceRange> < observationRange> <text>14.0-18.0</text> </observationRange> </referenceRange> </ observation> </component> <component> < observation moodCode="EVN" classCode="OBS"> < templateId root="2.16.840.1.181388.10..22.4.2"/> <id nullFlavor="NA" /> <code codeSystem="local" code="HCTT" displayName="HEMATOCRIT" /> < statusCode code="completed" /> <effectiveTime value=& quot;012967566325" /> <value unit="%" xsi: type="PQ" value="40.0" /> <referenceRange&gt ; <observationRange> <text>40.0-54.0</ text> </observationRange> </referenceRange> </observation> </component> <component> < observation moodCode="EVN" classCode="OBS"> < templateId root="2.16.840.1.226811.10.20.22.4.2" /> <id nullFlavor="NA" /> <code codeSystem="local" code="NA" displayName="SODIUM" /> < statusCode code="completed" /> <effectiveTime value=& quot;116504422482" /> <value unit="mmol/L" xsi: type="PQ" value="135" /> <referenceRange>& lt;observationRange> <text>135-148</text> </observationRange> </referenceRange> </ observation> </component> <component> < observation moodCode="EVN" classCode="OBS">< templateId root="2.16.840.1.861750.10.20.22.4.2" /> < id nullFlavor="NA" /> <code codeSystem="local&quot ; code="CL" displayName="CHLORIDE" /> < statusCode code="completed" /> <effectiveTime value=& quot;634386456799" /> <value unit="mmol/L" xsi: type="PQ" value="100" /> <referenceRange> <observationRange> <text>98-110</text&gt ; </observationRange> </referenceRange> & lt;/observation> </component> <component> < observation moodCode="EVN" classCode="OBS"> < templateId root="2.16.840.1.821886.10..22.4.2" /> < id nullFlavor="NA" /> <code codeSystem="local" code=& quot;CO2" displayName="CARBON DIOXIDE" /> < statusCode code="completed" /> <effectiveTime value=& quot;521139818368" /> <value unit="mmol/L" xsi: type="PQ" value="27" /> <referenceRange> <observationRange> <text>21-32</text> </observationRange> </referenceRange> </ observation> </component> <component> < observation moodCode="EVN" classCode="OBS"> < templateId root="2.16.840.1.964777.10..22.4.2" /> < id nullFlavor="NA" /> <code codeSystem="local&quot ; code="CAION" displayName="CALCIUM IONIZED" /> <statusCode code="completed" /> <effectiveTime value ="661372900848" /> <value unit="mg/dL" xsi: type="PQ" value="4.7" /> <referenceRange> <observationRange> <text>4.5-5.3</text& gt; </observationRange> </referenceRange> </observation> </component> </organizer> </entry > <entry> <organizer moodCode="EVN" classCode=" BATTERY"> <templateId root="2.16.840.1.281208.10.20.22.4.1& quot; /> <id nullFlavor="NA" /> <code codeSystem ="local" code="iCHEM8" displayName="CHEM/HEM PROFILE- BEDSIDE" /> <statusCode code="completed" /> &lt ;component> <observation moodCode="EVN" classCode=" OBS"> <templateId root="2.16.840.1.717238.10.20.22.4.2& quot; /> <id nullFlavor="NA" /> <code codeSystem="local" code="K" displayName="POTASSIUM&quot ; /> <statusCode code="completed" /> < effectiveTime value="426066375324" /> <value unit=&quot ;mmol/L" xsi:type="PQ" value="4.0" /> < referenceRange> <observationRange> <text> 3.5-5.3</text> </observationRange> </ referenceRange> </observation> </component> < component> <observation moodCode="EVN"classCode="OBS "> <templateId root="2.16.840.1.709814.10.20.22.4.2& quot; /> <id nullFlavor="NA" /> <code codeSystem="local" code="CMETHOD" displayName="METHOD& quot; /> <statusCode code="completed" /> & lt;effectiveTime value="299261112707" /> <value unit=& quot;" xsi:type="PQ" value="Bedside" /> &lt ;referenceRange> <observationRange> <text /& gt; </observationRange> </referenceRange> </observation> </component> <component> &lt ;observation moodCode="EVN" classCode="OBS"> &lt ;templateId root="2.16.840.1.954101.10.20.22.4.2" /> < id nullFlavor="NA" /> <code codeSystem="local&quot ; code="GAP" displayName="ANION GAP" /> < statusCode code="completed" /> <effectiveTime value=& quot;455881660675" /> <value unit="mmol/L" xsi: type="PQ" value="14" /> <referenceRange> <observationRange> <text>10-20</text> </observationRange> </referenceRange> & lt;/observation> </component> <component> < observation moodCode="EVN" classCode="OBS"> < templateId root="2.16.840.1.804897.10.20.22.4.2" /> < id nullFlavor="NA" /><code codeSystem="local" code=& quot;HMETHOD" displayName="METHOD" /> <statusCode code="completed" /> <effectiveTime value=" 568638432293" /> <value unit="" xsi:type="PQ& quot; value="Bedside" /> <referenceRange> <observationRange> <text/> </ observationRange> </referenceRange> </observation&gt ; </component> <component> <observation moodCode ="EVN" classCode="OBS"> <templateId root=& quot;2.16.840.1.232926.10.20.22.4.2" /> <id nullFlavor=&quot ;NA" /> <code codeSystem="local" code="GLU& quot; displayName="GLUCOSE" /> <statusCode code=" completed" /> <effectiveTime value="709866113371" /> <value unit="mg/dL" xsi:type="PQ" value=& quot;91" /> <referenceRange> < observationRange> <text>70-99</text> < /observationRange> </referenceRange> </observation& gt; </component> <component> <observation moodCode="EVN" classCode="OBS"> <templateId root="2.16.840.1.827632.10.20.22.4.2" /> <id nullFlavor ="NA" /> <code codeSystem="local" code=" BUN" displayName="BLOOD UREA NITROGEN" /> < statusCode code="completed" /> <effectiveTime value=" 166510735937" /> <value unit="mg/dL" xsi:type=& quot;PQ" value="19" /> <referenceRange> <observationRange> <text>7-20</text> </observationRange> </referenceRange> </ observation> </component> <component> < observation moodCode="EVN" classCode="OBS"> < templateId root="2.16.840.1.766868.10.20.22.4.2" /> < id nullFlavor="NA" /> <code codeSystem="local&quot ; code="CREAT" displayName="CREATININE" /> < statusCode code="completed" /> <effectiveTime value=& quot;136533966859" /> <value unit="mg/dL" xsi:type ="PQ" value="0.8" /> <referenceRange> <observationRange> <text>0.8-1.3</text> </observationRange> </referenceRange> </ observation> </component> <component> < observation moodCode="EVN" classCode="OBS"> < templateId root="2.16.840.1.802215.10.20.22.4.2" /> < id nullFlavor="NA" /> <code codeSystem="local&quot ; code="HGBT" displayName="HEMOGLOBIN" /> < statusCode code="completed" /> <effectiveTime value=& quot;829101717360" /> <value unit="gm/dL" xsi:type ="PQ" value="13.6" /> <interpretationCode codeSystem="local" code="*" /> <referenceRange& gt; <observationRange> <text>14.0-18.0</ text> </observationRange> </referenceRange> </observation> </component> <component> <observation moodCode="EVN" classCode="OBS"> <templateId root="2.16.840.1.939172.10.20.22.4.2" /> <id nullFlavor="NA" /> <code codeSystem=" local" code="HCTT" displayName="HEMATOCRIT" /> <statusCode code="completed" /> <effectiveTime value="950578211997" /> <value unit="%& quot; xsi:type="PQ" value="40.0" /> < referenceRange> <observationRange> <text> 40.0-54.0</text> </observationRange> </ referenceRange> </observation> </component> < component> <observation moodCode="EVN" classCode=" OBS"> <templateId root="2.16.840.1.234765.10.20.22.4.2& quot; /> <id nullFlavor="NA" /> <code codeSystem="local" code="NA" displayName="SODIUM" /> <statusCode code="completed" /> < effectiveTime value="148782564187" /> <value unit=&quot ;mmol/L" xsi:type="PQ" value="135" /> < referenceRange> <observationRange> <text>135-148 </text> </observationRange> </referenceRange& gt; </observation> </component> <component> <observation moodCode="EVN" classCode="OBS"> &lt ;templateId root="2.16.840.1.396636.10.20.22.4.2" /> < id nullFlavor="NA" /> <code codeSystem="local&quot ; code="CL" displayName="CHLORIDE" /> < statusCode code="completed" /> <effectiveTime value=& quot;441479499603" /> <value unit="mmol/L" xsi: type="PQ" value="100" /> <referenceRange> <observationRange> <text>98-110</text&gt ; </observationRange> </referenceRange> & lt;/observation> </component> <component> < observation moodCode="EVN" classCode="OBS"> < templateId root="2.16.840.1.166663.10.20.22.4.2" /> < id nullFlavor="NA" /> <code codeSystem="local" code="CO2" displayName="CARBON DIOXIDE" /> < statusCode code="completed" /> <effectiveTime value=& quot;149650672619" /> <value unit="mmol/L" xsi: type="PQ" value="27" /> <referenceRange> <observationRange> <text>21-32</text> & lt;/observationRange> </referenceRange> </ observation> </component> <component> < observation moodCode="EVN" classCode="OBS"> < templateId root="2.16.840.1.285808.10.20.22.4.2" /> < id nullFlavor="NA" /> <code codeSystem="local&quot ; code="CAION" displayName="CALCIUM IONIZED" /> < statusCode code="completed" /> <effectiveTime value=& quot;008980425813" /> <value unit="mg/dL" xsi:type ="PQ" value="4.7"/> <referenceRange> <observationRange> <text>4.5-5.3</text> </observationRange> </referenceRange> < /observation> </component> </organizer> </entry> <entry> <organizer moodCode="EVN" classCode="BATTERY& quot;> <templateId root="2.16.840.1.003636.10.20.22.4.1" /& gt; <id nullFlavor="NA" /> <code codeSystem=" local" code="iTROPI" displayName="TROPONIN I BEDSIDE" / > <statusCode code="completed" /> <component> <observation moodCode="EVN" classCode="OBS"> <templateId root="2.16.840.1.259994.10.20.22.4.2" /> <id nullFlavor="NA" /> <code codeSystem=&quot ;local" code="CMETHOD" displayName="METHOD" /> <statusCode code="completed" /> <effectiveTime value="675109177748" /> <value unit="" xsi: type="PQ" value="Bedside" /> <referenceRange> <observationRange> <text /> </ observationRange> </referenceRange> </observation&gt ; </component> <component> <observation moodCode ="EVN" classCode="OBS"> <templateId root=& quot;2.16.840.1.414049.10.20.22.4.2" /> <id nullFlavor=&quot ;NA" /> <code codeSystem="local" code="TROPI& quot; displayName="TROPONIN I" /> <statusCode code=& quot;completed" /> <effectiveTime value="138332284642& quot; /> <value unit="ng/mL" xsi:type="PQ" value="< 0.04" /> <referenceRange> <observationRange> <text>< 0.11</text> </observationRange> </referenceRange> &lt ;/observation> </component> </organizer> </entry> <entry> <organizer moodCode="EVN" classCode=" BATTERY"> <templateId root="2.16.840.1.316050.10.20.22.4.1& quot; /> <id nullFlavor="NA" /> <code codeSystem ="local" code="iTROPI" displayName="TROPONIN I BEDSIDE& quot; /> <statusCode code="completed" /> < component> <observation moodCode="EVN" classCode=" OBS"> <templateId root="2.16.840.1.718347.10.20.22.4.2& quot; /> <id nullFlavor="NA" /> <code codeSystem="local" code="CMETHOD" displayName="METHOD& quot; /> <statusCode code="completed" /> & lt;effectiveTime value="466474255713" /> <value unit=& quot;" xsi:type="PQ" value="Bedside" /> &lt ;referenceRange> <observationRange> <text /> </observationRange> </referenceRange> </ observation> </component> <component> < observation moodCode="EVN" classCode="OBS"> < templateId root="2.16.840.1.474143.10.20.22.4.2" /> < id nullFlavor="NA"/> <code codeSystem="local&quot ; code="TROPI" displayName="TROPONIN I" /> < statusCode code="completed" /> <effectiveTime value=& quot;059693837322" /> <value unit="ng/mL" xsi:type ="PQ" value="< 0.04" /> < referenceRange> <observationRange> <text> < 0.11</text> </observationRange> </ referenceRange> </observation> </component> </ organizer> </entry> <entry> <organizer moodCode="EVN& quot; classCode="BATTERY"> <templateId root=" 2.16.840.1.457096.10.20.22.4.1" /> <id nullFlavor="NA&quot ; /> <code codeSystem="local" code="UA" displayName="URINALYSIS, ROUTINE" /> <statusCode code=&quot ;completed" /> <component> <observation moodCode=& quot;EVN" classCode="OBS"> <templateId root=" 2.16.840.1.087568.10.20.22.4.2" /> <id nullFlavor="NA& quot; /> <code codeSystem="local" code="LEUESU& quot; displayName="UA LEUKOCYTE ESTERASE DIPSTICK" /> < statusCode code="completed" /> <effectiveTime value=&quot ;950892636252" /> <value unit="" xsi:type="PQ " value="NEGATIVE" /> <referenceRange> <observationRange> <text>NEGATIVE</text> </observationRange> </referenceRange> </ observation> </component> <component> < observation moodCode="EVN" classCode="OBS"> < templateId root="2.16.840.1.279694.10.20.22.4.2" /> < id nullFlavor="NA" /> <code codeSystem="local&quot ; code="NITRIU" displayName="UA NITRITE DIPSTICK" /> <statusCode code="completed" /><effectiveTime value=& quot;840843364127" /> <value unit="" xsi:type=& quot;PQ" value="NEGATIVE" /> <referenceRange> <observationRange> <text>NEGATIVE</text& gt; </observationRange> </referenceRange> & lt;/observation> </component> <component> < observation moodCode="EVN" classCode="OBS"> < templateId root="2.16.840.1.106267.10.20.22.4.2" /> < id nullFlavor="NA" /> <code codeSystem="local&quot ; code="PROTEIU" displayName="UA PROTEIN DIPSTICK" /> <statusCode code="completed" /> < effectiveTime value="620034401621" /> <value unit=&quot ;" xsi:type="PQ" value="NEGATIVE" /> < referenceRange> <observationRange> <text> NEGATIVE</text> </observationRange></referenceRange&gt ; </observation> </component> <component> <observation moodCode="EVN" classCode="OBS"> <templateId root="16.840.1.486579.10.20.22.4.2" /> <id nullFlavor="NA" /> <code codeSystem="local " code="DGLUU" displayName="UA GLUCOSE DIPSTICK" /> <statusCode code="completed" /> < effectiveTime value="906878562865" /> <value unit=&quot ;" xsi:type="PQ" value="NEGATIVE" /> < referenceRange> <observationRange> <text> NEGATIVE</text> </observationRange> </ referenceRange> </observation> </component> < component> <observation moodCode="EVN" classCode=" OBS"> <templateId root="2.16.840.1.406943.10.20.22.4.2& quot; /> <id nullFlavor="NA" /><code codeSystem=& quot;local" code="KETONU" displayName="UA KETONE DIPSTICK& quot; /> <statusCode code="completed" /> & lt;effectiveTime value="167623050231" /> <value unit=& quot;" xsi:type="PQ" value="NEGATIVE" /> & lt;referenceRange> <observationRange> <text>NEGATIVE </text> </observationRange> </referenceRange& gt; </observation> </component> <component> <observation moodCode="EVN" classCode="OBS"> <templateId root="2.16.840.1.574150.10.20.22.4.2" /> <id nullFlavor="NA" /> <codecodeSystem=" local" code="UROBILU" displayName="UA UROBILINOGEN DIPSTICK& quot; /> <statusCode code="completed" /> & lt;effectiveTime value="194150506980" /> <value unit=& quot;" xsi:type="PQ" value="NORMAL" /> < referenceRange> <observationRange> <text> NORMAL</text> </observationRange> </ referenceRange> </observation> </component> < component> <observation moodCode="EVN" classCode=" OBS"> <templateId root="2.16.840.1.769350.10..22.4.2& quot; /> <id nullFlavor="NA" /> <code codeSystem="local" code="BILU" displayName="UA BILIRUBIN DIPSTICK" /> <statusCode code="completed" /& gt; <effectiveTime value="628195501792" /> &lt ;value unit="" xsi:type="PQ" value="NEGATIVE" /&gt ; <referenceRange> <observationRange> <text>NEGATIVE</text> </observationRange> </referenceRange> </observation> </component&gt ; <component> <observation moodCode="EVN" classCode="OBS"> <templateId root=" 2.16.840.1.539247.10.20.22.4.2" /> <id nullFlavor="NA& quot; /> <code codeSystem="local" code="LAURA" displayName="UA BLOOD DIPSTICK" /> <statusCode code=& quot;completed" /> <effectiveTime value="548837663786& quot; /> <value unit="" xsi:type="PQ" value=& quot;NEGATIVE" /> <referenceRange> < observationRange> <text>NEGATIVE</text> & lt;/observationRange> </referenceRange> </ observation> </component> <component> < observation moodCode="EVN" classCode="OBS"> < templateId root="2.16.840.1.392085.10.20.22.4.2" /> < id nullFlavor="NA" /> <code codeSystem="local&quot ; code="UAVOL" displayName="UA VOLUME FOR EXAM" /> <statusCode code="completed" /> <effectiveTime value="075796066726" /> <value unit="mL" xsi:type=& quot;PQ" value="Note" /> <referenceRange> <observationRange> <text>(12mL STD)</text&gt ; </observationRange> </referenceRange> & lt;/observation> </component> <component> < observation moodCode="EVN" classCode="OBS"> < templateId root="2.16.840.1.814491.10.20.22.4.2" /> <id nullFlavor="NA" /> <code codeSystem="local" code="SPGRU" displayName="UA SPECIFIC GRAVITY" /> <statusCode code="completed" /> <effectiveTime value="209862983569" /> <value unit="" xsi: type="PQ" value="1.010" /> < interpretationCode codeSystem="local" code="*" /> <referenceRange> <observationRange> <text> 1.015-1.025</text> </observationRange> </ referenceRange> </observation> </component> < component> <observation moodCode="EVN" classCode=" OBS"> <templateId root="2.16.840.1.825080.10..22.4.2&quot ; /> <id nullFlavor="NA" /> <code codeSystem="local" code="TRICIA" displayName="UR PH" /> <statusCode code="completed" /> < effectiveTime value="745878031815" /> <value unit=&quot ;" xsi:type="PQ" value="7.0" /> < referenceRange> <observationRange> <text> 5.0-7.0</text> </observationRange> </ referenceRange> </observation> </component> </ organizer> </entry> <entry> <organizer moodCode="EVN " classCode="BATTERY"> <templateId root=" 2.16.840.1.014606.10.20.22.4.1" /> <id nullFlavor="NA&quot ; /> <code codeSystem="local" code="UA" displayName="URINALYSIS, ROUTINE" /> <statusCode code=&quot ;completed" /> <component> <observation moodCode=&quot ;EVN" classCode="OBS"> <templateId root=" 2.16.840.1.220020.10.20.22.4.2" /> <id nullFlavor="NA& quot; /> <code codeSystem="local" code="LEUESU&quot ; displayName="UA LEUKOCYTE ESTERASE DIPSTICK" /> < statusCode code="completed" /> <effectiveTime value=& quot;381242034956" /> <value unit="" xsi:type=& quot;PQ" value="NEGATIVE" /> <referenceRange> <observationRange> <text>NEGATIVE</text& gt; </observationRange> </referenceRange> </ observation> </component> <component> < observation moodCode="EVN" classCode="OBS"> < templateId root="2.16.840.1.076571.10.20.22.4.2" /> < id nullFlavor="NA" /> <code codeSystem="local&quot ; code="NITRIU" displayName="UA NITRITE DIPSTICK" /> <statusCode code="completed" /> < effectiveTime value="594109278361" /> <value unit=&quot ;" xsi:type="PQ" value="NEGATIVE" /> < referenceRange> <observationRange> <text> NEGATIVE</text> </observationRange> </ referenceRange> </observation> </component> < component><observation moodCode="EVN" classCode="OBS"& gt; <templateId root="2.16.840.1.535655.10..22.4.2" /&gt ; <id nullFlavor="NA" /> <code codeSystem=" local" code="PROTEIU" displayName="UA PROTEIN DIPSTICK&quot ; /> <statusCode code="completed" /> < effectiveTime value="192738814293" /> <value unit=&quot ;" xsi:type="PQ" value="NEGATIVE" /> < referenceRange> <observationRange> <text> NEGATIVE</text> </observationRange> </ referenceRange> </observation> </component> < component> <observation moodCode="EVN" classCode=" OBS"> <templateId root="2.16.840.1.621112.10..22.4.2& quot; /> <id nullFlavor="NA" /> <code codeSystem="local" code="DGLUU" displayName="UA GLUCOSE DIPSTICK" /> <statusCode code="completed" /> <effectiveTime value="990718939425" /> & lt;value unit="" xsi:type="PQ" value="NEGATIVE" /& gt; <referenceRange> <observationRange><text& gt;NEGATIVE</text> </observationRange> </ referenceRange> </observation> </component> < component> <observationmoodCode="EVN" classCode="OBS "> <templateId root="2.16.840.1.345042.10.20.22.4.2& quot; /> <id nullFlavor="NA" /> <code codeSystem="local" code="KETONU" displayName="UA KETONE DIPSTICK" /> <statusCode code="completed" /&gt ; <effectiveTime value="246746294078" /> < value unit="" xsi:type="PQ" value="NEGATIVE" /&gt ; <referenceRange> <observationRange> <text>NEGATIVE</text> </observationRange> </referenceRange> </observation> </component> & lt;component> <observation moodCode="EVN" classCode=&quot ;OBS"> <templateId root="2.16.840.1.476241.10.20.22.4.2 " /> <id nullFlavor="NA" /> <code codeSystem="local" code="UROBILU" displayName="UA UROBILINOGEN DIPSTICK" /> <statusCode code="completed" /> <effectiveTime value="386909562825" /> & lt;value unit="" xsi:type="PQ" value="NORMAL" /&gt ; <referenceRange> <observationRange> <text>NORMAL</text> </observationRange> </referenceRange> </observation> </component> <component> <observation moodCode="EVN" classCode ="OBS"> <templateId root=" 2.16.840.1.450881.10.20.22.4.2" /> <id nullFlavor="NA& quot; /> <code codeSystem="local" code="BILU&quot ; displayName="UA BILIRUBIN DIPSTICK" /> <statusCode code="completed" /> <effectiveTime value=" 917919762621" /> <value unit="" xsi:type="PQ& quot; value="NEGATIVE" /> <referenceRange> & lt;observationRange> <text>NEGATIVE</text> </observationRange> </referenceRange> </ observation> </component> <component> < observation moodCode="EVN" classCode="OBS"> < templateId root="2.16.840.1.691161.10..22.4.2" /> < id nullFlavor="NA" /> <code codeSystem="local&quot ; code="LAURA" displayName="UA BLOOD DIPSTICK" /> <statusCode code="completed" /> <effectiveTime value ="447028624491" /><value unit="" xsi:type="PQ& quot; value="NEGATIVE" /> <referenceRange> <observationRange> <text>NEGATIVE</text> </observationRange> </referenceRange> </ observation></component> <component> <observation moodCode="EVN" classCode="OBS"> <templateId root="2.16.840.1.213955.10.20.22.4.2" /> <id nullFlavor=& quot;NA" /> <code codeSystem="local" code=" UAVOL" displayName="UA VOLUME FOR EXAM" /> < statusCode code="completed" /> <effectiveTime value=& quot;731075410550" /> <valueunit="mL" xsi:type=& quot;PQ" value="Note" /> <referenceRange> <observationRange> <text>(12mL STD)</text&gt ; </observationRange> </referenceRange> & lt;/observation> </component> <component> < observation moodCode="EVN" classCode="OBS"> < templateId root="2.16.840.1.674039.10.20.22.4.2" /> < id nullFlavor="NA" /> <code codeSystem="local&quot ; code="SPGRU" displayName="UA SPECIFIC GRAVITY" /> <statusCode code="completed" /> <effectiveTime value="632503622810" /> <value unit="" xsi: type="PQ" value="1.010" /> < interpretationCode codeSystem="local" code="*" /> <referenceRange> <observationRange> < text>1.015-1.025</text> </observationRange> & lt;/referenceRange> </observation> </component> <component> <observation moodCode="EVN" classCode=& quot;OBS"> <templateId root=" 2.16.840.1.392190.10.20.22.4.2" /> <id nullFlavor="NA& quot; /> <code codeSystem="local" code="TRICIA" displayName="UR PH" /> <statusCode code="completed " /> <effectiveTime value="012108769711" /> <value unit="" xsi:type="PQ" value="7.0&quot ; /> <referenceRange> <observationRange> < text>5.0-7.0</text> </observationRange> </ referenceRange> </observation> </component> </ organizer> </entry> <entry> <organizer moodCode="EVN " classCode="BATTERY"> <templateId root=" 2.16.840.1.717699.10.20.22.4.1" /> <id nullFlavor="NA&quot ; /> <code codeSystem="local" code="TROPI" displayName="TROPONIN I" /> <statusCode code=" completed" /> <component> <observation moodCode=& quot;EVN" classCode="OBS"> <templateId root=" 2.16.840.1.727456.10..22.4.2" /> <id nullFlavor="NA& quot; /> <codecodeSystem="local" code="TROPI&quot ; displayName="TROPONIN I" /> <statusCode code="completed& quot; /> <effectiveTime value="920160557467" /> <value unit="ng/mL" xsi:type="PQ" value="& lt; 0.02" /> <referenceRange> < observationRange> <text>< 0.07</text> </observationRange> </referenceRange> </ observation> </component> </organizer> </entry> & lt;entry> <organizer moodCode="EVN" classCode="BATTERY& quot;> <templateId root="2.16.840.1.367741.10..22.4.1" /& gt; <id nullFlavor="NA" /> <code codeSystem=" local" code="TROPI" displayName="TROPONIN I" /> <statusCode code="completed" /> <component> <observation moodCode="EVN" classCode="OBS"> <templateId root="2.16.840.1.259323.10.20.22.4.2" /> & lt;id nullFlavor="NA" /> <codecodeSystem="local& quot; code="TROPI" displayName="TROPONIN I" /> < statusCode code="completed" /> <effectiveTime value=& quot;415273539655" /> <value unit="ng/mL" xsi:type ="PQ" value="< 0.02" /> < referenceRange> <observationRange> <text> < 0.07</text> </observationRange> </ referenceRange> </observation> </component> </ organizer> </entry> <entry> <organizer moodCode="EVN " classCode="BATTERY"> <templateId root=" 2.16.840.1.836052.10.20.22.4.1" /> <id nullFlavor="NA&quot ; /> <code codeSystem="local" code="TROPI" displayName="TROPONIN I" /> <statusCode code=" completed" /> <component> <observation moodCode=& quot;EVN" classCode="OBS"> <templateId root=" 216.840.1.556038....4.2" /> <id nullFlavor="NA& quot; /> <codecodeSystem="local" code="TROPI&quot ; displayName="TROPONIN I" /> <statusCode code="completed& quot; /> <effectiveTime value="307857036781" /> <value unit="ng/mL" xsi:type="PQ" value="& lt; 0.02" /> <referenceRange> < observationRange> <text>< 0.07</text> </observationRange> </referenceRange> </ observation> </component> </organizer> </entry> & lt;entry> <organizer moodCode="EVN" classCode="BATTERY& quot;> <templateId root="2.16.840.1.041861.10..22.4.1" /& gt; <id nullFlavor="NA" /> <code codeSystem=" local" code="TROPI" displayName="TROPONIN I" /> <statusCode code="completed" /> <component> <observation moodCode="EVN" classCode="OBS"> <templateId root="2.840.1.888820.10..22.4.2" /> & lt;id nullFlavor="NA" /> <codecodeSystem="local& quot; code="TROPI" displayName="TROPONIN I" /> < statusCode code="completed" /> <effectiveTime value=& quot;001562872117" /> <value unit="ng/mL" xsi:type ="PQ" value="< 0.02" /> < referenceRange> <observationRange> <text> < 0.07</text> </observationRange> </ referenceRange> </observation> </component> </ organizer> </entry> <entry> <organizer moodCode="EVN " classCode="BATTERY"> <templateId root=" 216.840.1.485514.10.20.22.4.1" /> <id nullFlavor="NA&quot ; /> <code codeSystem="local" code="CBC" displayName="CBC" /> <statusCode code="completed" /&gt ; <component> <observation moodCode="EVN" classCode="OBS"> <templateId root=" 2.16.840.1.499493.10..22.4.2" /> <id nullFlavor="NA& quot; /> <code codeSystem="local" code="MCH" displayName="MEAN CELL HGB" /> <statusCode code=" completed" /> <effectiveTime value="563255152025" /> <value unit="pg" xsi:type="PQ" value=&quot ;31.7" /> <referenceRange> <observationRange> <text>27.0-33.0</text> </ observationRange> </referenceRange> </observation&gt ; </component> <component> <observation moodCode ="EVN" classCode="OBS"> <templateId root=& quot;2.16.840.1.206459.10.20.22.4.2" /> <id nullFlavor=&quot ;NA" /> <code codeSystem="local" code="[facility]& quot; displayName="MEAN CELL HGB CONCENTRATION" /> < statusCode code="completed" /> <effectiveTime value=& quot;165059227445" /> <value unit="g/dL" xsi:type= "PQ" value="34.1" /> <referenceRange> <observationRange> <text>32.0-37.0</text> </observationRange> </referenceRange> </ observation> </component> <component> < observation moodCode="EVN"classCode="OBS"> < templateId root="2.16.840.1.238065.10.20.22.4.2" /> < id nullFlavor="NA" /> <code codeSystem="local&quot ; code="MCV" displayName="MEAN CELL VOLUME" /> & lt;statusCode code="completed" /> <effectiveTime value= "928085338421" /> <value unit="fl" xsi:type=& quot;PQ" value="92.8" /> <referenceRange> <observationRange> <text>80.0-100.0</text&gt ; </observationRange> </referenceRange> </ observation> </component> <component> < observation moodCode="EVN" classCode="OBS"> < templateId root="2.16.840.1.206417.10.20.22.4.2" /> <id nullFlavor="NA" /> <code codeSystem="local" code="RBC" displayName="RED BLOOD CELL" /> < statusCode code="completed" /> <effectiveTime value=& quot;066271340050" /> <value unit="m/cumm" xsi: type="PQ" value="4.01" /> <referenceRange&gt ; <observationRange> <text>4.00-6.00</text& gt; </observationRange> </referenceRange> </observation> </component> <component> &lt ;observation moodCode="EVN" classCode="OBS"> &lt ;templateId root="2.16.840.1.550130.10.20.22.4.2" /> < id nullFlavor="NA" /> <code codeSystem="local&quot ; code="RDW" displayName="RED CELL DISTRIBUTION WIDTH" /&gt ; <statusCode code="completed" /> < effectiveTime value="218528421257" /> <value unit=&quot ;%" xsi:type="PQ" value="13.2" /> & lt;referenceRange> <observationRange> <text& gt;11.0-15.6</text> </observationRange> </ referenceRange> </observation> </component> < component> <observation moodCode="EVN" classCode=" OBS"> <templateId root="2.16.840.1.881666.10.20.22.4.2& quot; /> <id nullFlavor="NA" /> <code codeSystem="local" code="WBC" displayName="WHITE BLOOD CELL" /> <statusCode code="completed" /> <effectiveTime value="319757481897" /> <value unit="k/cumm" xsi:type="PQ" value="5.5" /> <referenceRange> <observationRange> <text> 5.0-10.0</text> </observationRange> </ referenceRange> </observation> </component> < component> <observation moodCode="EVN" classCode=" OBS"> <templateId root="2.16.840.1.861426.10.20.22.4.2" /& gt; <id nullFlavor="NA" /> <code codeSystem ="local" code="HGBT" displayName="HEMOGLOBIN" /&gt ; <statusCode code="completed" /> < effectiveTime value="900073938687" /> <value unit=&quot ;gm/dL" xsi:type="PQ" value="12.7" /> < interpretationCode codeSystem="local" code="*" /> <referenceRange> <observationRange> <text> 14.0-18.0</text> </observationRange> </ referenceRange> </observation> </component> < component> <observation moodCode="EVN" classCode=" OBS"> <templateId root="2.16.840.1.554459.10.20.22.4.2& quot; /> <id nullFlavor="NA" /> <code codeSystem="local" code="HCTT" displayName="HEMATOCRIT& quot; /> <statusCode code="completed" /> < effectiveTime value="824964854394" /> <value unit=&quot ;%" xsi:type="PQ" value="37.2" /> & lt;interpretationCode codeSystem="local" code="*" /> <referenceRange> <observationRange> < text>40.0-54.0</text> </observationRange> &lt ;/referenceRange> </observation> </component> & lt;component> <observation moodCode="EVN" classCode=&quot ;OBS"> <templateId root="2.16.840.1.498652.10.20.22.4.2 " /> <id nullFlavor="NA" /> <code codeSystem="local" code="PLT" displayName="PLATELET COUNT" /> <statusCode code="completed" /> <effectiveTime value="296611192006" /> <value unit="k/cumm" xsi:type="PQ" value="137" /> <interpretationCode codeSystem="local" code="*" /& gt; <referenceRange> <observationRange> <text>150-400</text> </observationRange> </referenceRange> </observation> </component&gt ; </organizer> </entry> <entry> <organizer moodCode ="EVN" classCode="BATTERY"> <templateId root=& quot;2.16.840.1.039796.10.20.22.4.1" /> <id nullFlavor="NA& quot; /> <code codeSystem="local" code="PT" displayName="PROTHROMBIN TIME WITH INR" /> <statusCode code ="completed" /> <component> <observation moodCode="EVN" classCode="OBS"> <templateId root="2.16.840.1.132851.10.20.22.4.2" /> <id nullFlavor=&quot ;NA" /> <code codeSystem="local" code="INRX& quot; displayName="INTERNATIONAL NORMAL RATIO" /> < statusCode code="completed" /> <effectiveTime value=& quot;314094882699" /> <value unit="" xsi:type=& quot;PQ" value="2.5" /> <interpretationCode codeSystem="local" code="*" /> < referenceRange> <observationRange> <text>0.9-1.1& lt;/text> </observationRange> </referenceRange& gt; </observation> </component> <component> <observation moodCode="EVN" classCode="OBS"> <templateId root="2.16.840.1.624544.10..22.4.2" /> & lt;id nullFlavor="NA" /> <code codeSystem="local& quot; code="PTPAT" displayName="PROTHROMBIN TIME" /> <statusCode code="completed" /><effectiveTime value=& quot;856220038966" /> <value unit="sec" xsi:type=& quot;PQ" value="28.0" /> <interpretationCode codeSystem="local" code="*" /> < referenceRange> <observationRange> <text> 9.3-12.2</text> </observationRange> </ referenceRange> </observation> </component> </ organizer> </entry> <entry> <organizer moodCode="EVN " classCode="BATTERY"> <templateId root=" 2.16.840.1.047206.10.20.22.4.1" /> <id nullFlavor="NA&quot ; /> <code codeSystem="local" code="CBC" displayName="CBC" /> <statusCode code="completed&quot ; /> <component> <observation moodCode="EVN" classCode="OBS"> <templateId root=" 2.16.840.1.880239.10.20.22.4.2" /> <id nullFlavor="NA& quot; /> <code codeSystem="local" code="MCH" displayName="MEAN CELL HGB" /> <statusCode code=" completed" /> <effectiveTime value="183774620885" /> <value unit="pg" xsi:type="PQ" value=&quot ;31.7" /> <referenceRange> < observationRange> <text>27.0-33.0</text> </observationRange> </referenceRange> </ observation> </component> <component> < observation moodCode="EVN" classCode="OBS"> < templateId root="2.16.840.1.219359.10.20.22.4.2" /> < id nullFlavor="NA" /> <code codeSystem="local&quot ; code="[facility]" displayName="MEAN CELL HGB CONCENTRATION" /&gt ; <statusCode code="completed" /> <effectiveTime value="625864228970" /> <value unit="g/dL" xsi:type="PQ" value="34.1"/> <referenceRange& gt; <observationRange> <text>32.0-37.0</ text> </observationRange> </referenceRange> </observation> </component> <component> <observation moodCode="EVN" classCode="OBS"> <templateId root="2.16.840.1.025144.10.20.22.4.2" /> <id nullFlavor="NA" /> <code codeSystem=" local" code="MCV" displayName="MEAN CELL VOLUME" /> <statusCode code="completed" /> < effectiveTime value="296799491860" /> <value unit=" fl" xsi:type="PQ" value="92.8" /><referenceRange& gt; <observationRange> <text>80.0-100.0</ text> </observationRange> </referenceRange> </observation> </component> <component> <observation moodCode="EVN" classCode="OBS"> <templateId root="2.16.840.1.365309.10.20.22.4.2" /> <id nullFlavor="NA" /> <code codeSystem=" local" code="RBC" displayName="RED BLOOD CELL" /> <statusCode code="completed" /> < effectiveTime value="328818801228" /> <value unit=&quot ;m/cumm" xsi:type="PQ" value="4.01" /> < referenceRange> <observationRange> <text> 4.00-6.00</text> </observationRange> </ referenceRange> </observation> </component> < component> <observation moodCode="EVN" classCode=" OBS"> <templateId root="2.16.840.1.473694.10.20.22.4.2& quot; /> <id nullFlavor="NA" /> <code codeSystem= "local" code="RDW" displayName="RED CELL DISTRIBUTION WIDTH" /> <statusCode code="completed" /> <effectiveTime value="201887616699" /> <value unit="%" xsi:type="PQ" value="13.2" /> <referenceRange> <observationRange> <text>11.0-15.6</text> </observationRange> </referenceRange> </observation> </component> <component> <observation moodCode="EVN" classCode=& quot;OBS"> <templateId root=" 2.16.840.1.164488.10.20.22.4.2" /> <id nullFlavor="NA" / > <code codeSystem="local" code="WBC" displayName="WHITE BLOOD CELL" /> <statusCode code=& quot;completed" /> <effectiveTime value="541856413908& quot; /> <value unit="k/cumm" xsi:type="PQ" value="5.5" /> <referenceRange> < observationRange> <text>5.0-10.0</text> & lt;/observationRange> </referenceRange> </ observation> </component> <component> < observation moodCode="EVN" classCode="OBS"> < templateId root="2.16.840.1.992898.10.20.22.4.2" /> < id nullFlavor="NA" /> <code codeSystem="local&quot ; code="HGBT" displayName="HEMOGLOBIN" /> < statusCode code="completed" /> <effectiveTime value=" 451825650116" /> <value unit="gm/dL"xsi:type=&quot ;PQ" value="12.7" /> <interpretationCode codeSystem="local" code="*" /> < referenceRange> <observationRange> <text> 14.0-18.0</text> </observationRange> </ referenceRange> </observation> </component> < component> <observation moodCode="EVN" classCode="OBS& quot;> <templateId root="2.16.840.1.186310.10.20.22.4.2&quot ; /> <id nullFlavor="NA" /> <code codeSystem="local" code="HCTT" displayName="HEMATOCRIT& quot; /> <statusCode code="completed" /> & lt;effectiveTime value="715372403822" /> <value unit=& quot;%" xsi:type="PQ" value="37.2" /> <interpretationCode codeSystem="local" code="*" /&gt ; <referenceRange> <observationRange> <text>40.0-54.0</text> </observationRange> </referenceRange> </observation> </component> <component> <observation moodCode="EVN" classCode=& quot;OBS"> <templateId root=" 2.16.840.1.154814.10.20.22.4.2" /> <id nullFlavor="NA& quot; /> <code codeSystem="local" code="PLT" displayName="PLATELET COUNT" /> <statusCode code=" completed" /> <effectiveTime value="832471118785" /> <value unit="k/cumm" xsi:type="PQ" value=& quot;137" /> <interpretationCode codeSystem="local" code="*" /> <referenceRange> < observationRange> <text>150-400</text> </ observationRange> </referenceRange> </observation&gt ; </component> </organizer> </entry> <entry> <organizer moodCode="EVN" classCode="BATTERY"> <templateId root="2.16.840.1.309909.10.20.22.4.1" /> < id nullFlavor="NA" /> <code codeSystem="local" code="PT" displayName="PROTHROMBIN TIME WITH INR" /> <statusCode code="completed" /> <component> <observation moodCode="EVN"classCode="OBS"> & lt;templateId root="2.16.840.1.294799.10.20.22.4.2" /> &lt ;id nullFlavor="NA" /> <code codeSystem="local& quot; code="INRX" displayName="INTERNATIONAL NORMAL RATIO" / > <statusCode code="completed" /> < effectiveTime value="839511252610" /> <value unit="& quot; xsi:type="PQ" value="2.5" /> < interpretationCode codeSystem="local" code="*" /> <referenceRange> <observationRange> < text>0.9-1.1</text> </observationRange> </ referenceRange> </observation> </component> < component> <observation moodCode="EVN" classCode=" OBS"> <templateId root="2.16.840.1.785216.10.20.22.4.2& quot; /> <id nullFlavor="NA" /> <code codeSystem="local" code="PTPAT"displayName=" PROTHROMBIN TIME" /> <statusCode code="completed" /> <effectiveTime value="846486279484" /> & lt;value unit="sec" xsi:type="PQ" value="28.0" /& gt; <interpretationCode codeSystem="local" code="*& quot; /> <referenceRange> <observationRange> <text>9.3-12.2</text> </observationRange > </referenceRange> </observation> </component& gt; </organizer> </entry> <entry> <organizer moodCode="EVN" classCode="BATTERY"> <templateId root="2.16.840.1.795830.10.20.22.4.1" /> <id nullFlavor=& quot;NA" /> <code codeSystem="local" code="LCBC& quot; displayName="L100.0050" /> <statusCode code=" completed" /> <component> <observation moodCode=& quot;EVN" classCode="OBS"> <templateId root=" 2.16.840.1.599150.10.20.22.4.2" /> <id nullFlavor="NA& quot; /> <code codeSystem="local" code="100.0150& quot; displayName="WBC -WHITE BLOOD COUNT" /> < statusCode code="completed" /> <effectiveTime value=& quot;595076217530" /> <value unit="T/MM3" xsi:type ="PQ" value="8.3" /> <referenceRange> <observationRange> <text>4.5-11.0</text> </observationRange> </referenceRange> </ observation> </component> <component> < observation moodCode="EVN" classCode="OBS"> < templateId root="2.16.840.1.276664.10.20.22.4.2" /> < id nullFlavor="NA" /> <code codeSystem="local&quot ; code="100.0250" displayName="RED BLOOD COUNT" /> <statusCode code="completed" /> <effectiveTime value="053494317619" /> <value unit="M/MM3" xsi:type="PQ" value="4.13" /> < interpretationCode codeSystem="local" code="*" /> <referenceRange> <observationRange> < text>4.50-5.90</text> </observationRange> &lt ;/referenceRange> </observation> </component> & lt;component> <observationmoodCode="EVN" classCode=" OBS"> <templateId root="2.16.840.1.092581.10.20.22.4.2& quot; /> <id nullFlavor="NA" /> <code codeSystem="local" code="100.0300" displayName="HGB - HEMOGLOBIN" /> <statusCode code="completed" /> <effectiveTime value="026287825649" /> < value unit="GM/DL" xsi:type="PQ" value="12.9" /&gt ; <interpretationCode codeSystem="local" code="*&quot ; /> <referenceRange> <observationRange> <text>13.5-17.5</text> </observationRange> </referenceRange> </observation> </component& gt; <component> <observation moodCode="EVN" classCode="OBS"> <templateId root=" 2.16.840.1.385200.10.20.22.4.2" /> <id nullFlavor="NA& quot; /> <code codeSystem="local" code="100.0400& quot; displayName="HCT - HEMATOCRIT" /> <statusCodecode ="completed" /> <effectiveTime value="756705073634 " /> <value unit="%" xsi:type="PQ" value="38.2" /> <interpretationCode codeSystem="local& quot; code="*" /> <referenceRange> < observationRange> <text>41-53</text> </ observationRange> </referenceRange> </observation&gt ; </component> <component> <observation moodCode ="EVN" classCode="OBS"> <templateId root=& quot;2.16.840.1.976544.10.20.22.4.2" /> <id nullFlavor=&quot ;NA" /> <code codeSystem="local" code=" 100.0550" displayName="MEAN CORPUSCULAR VOLUME" /> & lt;statusCode code="completed" /> <effectiveTime value= "288674154948" /> <valueunit="UM3" xsi:type=& quot;PQ" value="92.5" /> <referenceRange> <observationRange> <text>80-100</text> </observationRange> </referenceRange> </ observation> </component> <component> < observation moodCode="EVN" classCode="OBS"> < templateId root="2.16.840.1.877512.10.20.22.4.2" /> < id nullFlavor="NA" /> <code codeSystem="local&quot ; code="100.0600" displayName="MEAN CORPUSCULAR HGB" /> <statusCode code="completed" /> < effectiveTime value="004913710327" /> <value unit=&quot ;UUG" xsi:type="PQ" value="31.2" /> < referenceRange> <observationRange> <text>26- 34</text> </observationRange> </ referenceRange> </observation> </component> < component> <observation moodCode="EVN" classCode=" OBS"> <templateId root="2.16.840.1.655834.10.20.22.4.2&quot ; /> <id nullFlavor="NA" /> <code codeSystem="local" code="100.0650" displayName="MEAN CORPUSCULAR HGB CONC([facility]" /> <statusCode code=" completed" /> <effectiveTime value="939479601332" /> <value unit="GM/DL" xsi:type="PQ" value=& quot;33.8" /> <referenceRange> < observationRange> <text>31-37</text> < /observationRange> </referenceRange> </observation& gt; </component> <component> <observation moodCode="EVN" classCode="OBS"> <templateId root="2.16.840.1.286268.10.20.22.4.2" /> <id nullFlavor ="NA" /> <code codeSystem="local" code=" 100.0750" displayName="RDW STANDARD DEVIATION" /> &lt ;statusCode code="completed"/> <effectiveTime value=& quot;215527835050" /> <value unit="FL" xsi:type=& quot;PQ" value="42.0" /> <referenceRange> &lt ;observationRange> <text>36.9-50.2</text> </observationRange> </referenceRange> </ observation> </component> <component> < observation moodCode="EVN" classCode="OBS"> < templateId root="2.16.840.1.010416.10.20.22.4.2" /> < id nullFlavor="NA" /> <code codeSystem="local&quot ; code="100.0850" displayName="PLT - PLATELET COUNT" /> <statusCode code="completed" /> < effectiveTime value="269477790242" /> <value unit=&quot ;T/MM3" xsi:type="PQ" value="121" /> < interpretationCode codeSystem="local" code="*" /> <referenceRange> <observationRange> < text>130-400</text> </observationRange></ referenceRange> </observation> </component> < component> <observation moodCode="EVN" classCode="OBS& quot;> <templateId root="2.16.840.1.479195.10.20.22.4.2&quot ; /> <id nullFlavor="NA" /> <code codeSystem="local" code="100.0950" displayName="MEAN PLATELET VOLUME" /> <statusCode code="completed" / > <effectiveTime value="206149989398" /> & lt;value unit="UM3" xsi:type="PQ" value="9.9" /&gt ; <referenceRange> <observationRange> <text>9.4-12.4</text> </observationRange> </referenceRange> </observation> </component&gt ; </organizer> </entry> <entry> <organizer moodCode ="EVN" classCode="BATTERY"> <templateId root=" 2.16.840.1.770686.10.20.22.4.1" /> <id nullFlavor="NA&quot ; /> <code codeSystem="local" code="LDIFFM" displayName="L100.0105" /> <statusCode code="completed " /> <component> <observation moodCode="EVN" classCode="OBS"> <templateId root=" 2.16.840.1.496707.10.20.22.4.2" /> <id nullFlavor="NA& quot; /> <code codeSystem="local" code="100.1650" displayName="NEUTROPHILS % (MANUAL)" /> < statusCode code="completed" /> <effectiveTime value=& quot;633402552109" /> <value unit="%" xsi: type="PQ" value="46.0" /> <referenceRange&gt ; <observationRange> <text>33-66</text&gt ; </observationRange> </referenceRange> </ observation> </component> <component> < observation moodCode="EVN" classCode="OBS"> < templateId root="[id number]" /> < id nullFlavor="NA" /> <code codeSystem="local&quot ; code="100.1750" displayName="BAND NEUTROPHILS %" / > <statusCode code="completed" /> < effectiveTime value="[id number]" /> <value unit=&quot ;%" xsi:type="PQ" value="48.0" /> & lt;interpretationCode codeSystem="local" code="*" /> <referenceRange> <observationRange> & lt;text>0-6</text> </observationRange> </ referenceRange> </observation> </component> < component> <observation moodCode="EVN" classCode=" OBS"> <templateId root="[id number]& quot; /> <id nullFlavor="NA" /> <code codeSystem="local" code="100.1850" displayName=" LYMPHOCYTES % (MANUAL)" /> <statusCode code=" completed" /> <effectiveTime value="[id number]" /> <value unit="%" xsi:type="PQ" value="4.0" /> <interpretationCode codeSystem=" local" code="*" /> <referenceRange> <observationRange> <text>23-45</text> </ observationRange> </referenceRange> </observation&gt ; </component> <component> <observation moodCode ="EVN" classCode="OBS"> <templateId root=& quot;2.16.840.1.585314.10.20.22.4.2" /> <id nullFlavor=&quot ;NA" /> <code codeSystem="local" code=" 100.0" displayName="EOSINOPHILS % (MANUAL)" /> <statusCode code="completed" /> < effectiveTime value="552607547080" /> <value unit=&quot ;%" xsi:type="PQ" value="1.0" /> & lt;referenceRange> <observationRange> <text>0 -4</text> </observationRange> </ referenceRange> </observation> </component> < component> <observation moodCode="EVN" classCode=" OBS"> <templateId root="2.16.840.1.226620.10.20.22.4.2& quot; /> <id nullFlavor="NA" /> <code codeSystem="local" code="100.2200" displayName=" METAMYELOCYTES %" /> <statusCode code=" completed" /> <effectiveTime value="703456777396" /> <value unit="%" xsi:type="PQ"value ="1.0" /> <interpretationCode codeSystem="local& quot; code="*" /> <referenceRange> < observationRange> <text>0-0</text> </ observationRange> </referenceRange> </observation&gt ; </component> <component> <observation moodCode ="EVN" classCode="OBS"> <templateId root=& quot;2.16.840.1.911673.10.20.22.4.2" /> <id nullFlavor=&quot ;NA" /> <code codeSystem="local" code=" 100.2400" displayName="PROLYMPHOCYTES %" /> < statusCode code="completed" /> <effectiveTime value=& quot;629690602935" /> <value unit="T/MM3" xsi:type ="PQ" value="3.8" /> <referenceRange> <observationRange> <text>1.8-7.7</text> </observationRange> </referenceRange> &lt ;/observation> </component> <component> < observation moodCode="EVN" classCode="OBS"> < templateId root="2.16.840.1.508910.10.20.22.4.2" /> < id nullFlavor="NA" /> <code codeSystem="local&quot ; code="100.2450" displayName="PLASMA CELLS %" /&gt ; <statusCode code="completed" /> < effectiveTime value="995431588857" /> <value unit=&quot ;T/MM3" xsi:type="PQ" value="4.0" /> < referenceRange> <observationRange> <text> NRG</text> </observationRange> </ referenceRange> </observation> </component> < component> <observation moodCode="EVN" classCode=" OBS"> <templateId root="2.16.840.1.124446.10.20.22.4.2& quot; /> <id nullFlavor="NA" /> <code codeSystem="local" code="100.2750" displayName=" MONOCYTES # (MANUAL)" /> <statusCode code="completed& quot; /> <effectiveTime value="260508319070" /> <value unit="T/MM3" xsi:type="PQ" value="0.1& quot; /> <referenceRange> <observationRange> <text>0-0.5</text> </observationRange> </referenceRange> </observation> </component> <component> <observation moodCode="EVN" classCode="OBS"> <templateId root=" 2.16.840.1.559479.10.20.22.4.2" /> <id nullFlavor="NA& quot; /> <code codeSystem="local" code="100.2900& quot; displayName="METAMYELOCYTES #" /> <statusCode code="completed" /> <effectiveTime value=" 503962077511" /> <value unit="T/MM3" xsi:type=& quot;PQ" value="0.1" /> <referenceRange> <observationRange> <text>NRG</text> </ observationRange> </referenceRange> </observation&gt ; </component> <component> <observation moodCode ="EVN" classCode="OBS"> <templateId root=& quot;2.16.840.1.446862.10.20.22.4.2" /> <id nullFlavor=&quot ;NA" /> <code codeSystem="local" code=" 100.2550" displayName="Lymphocytes # (Manual)" /> &lt ;statusCode code="completed" /> <effectiveTime value=& quot;016562750414" /> <value unit="T/MM3" xsi:type ="PQ" value="0.3" /> <interpretationCode codeSystem="local" code="*" /> < referenceRange> <observationRange> <text>1-4.8</ text> </observationRange> </referenceRange> </observation> </component> <component> <observation moodCode="EVN" classCode="OBS"> <templateId root="2.16.840.1.666912.10.20.22.4.2" /> <id nullFlavor="NA" /> <code codeSystem=" local" code="100.4565" displayName="LRBCMOR" /> <statusCode code="completed" /> < effectiveTime value="036996406197" /> <value unit=&quot ;" xsi:type="PQ" value="Normal" /> < referenceRange> <observationRange> <text> NRG</text> </observationRange> </ referenceRange> </observation> </component> </ organizer> </entry> <entry> <organizer moodCode="EVN " classCode="BATTERY"> <templateId root=" 2.16.840.1.808450.10.20.22.4.1" /> <id nullFlavor="NA&quot ; /> <code codeSystem="local" code="LCMP" displayName="L200.0020" /> <statusCode code="completed " /> <component> <observation moodCode="EVN& quot; classCode="OBS"> <templateId root=" 2.16.840.1.478931.10..22.4.2" /> <id nullFlavor="NA& quot; /><code codeSystem="local" code="300.0400" displayName="FUNGAL CULTURE." /> <statusCode code=&quot ;completed" /> <effectiveTime value="259475700542&quot ; /> <value unit="MG/DL" xsi:type="PQ" value= "1.1" /> <referenceRange> < observationRange> <text>0.8-1.5</text> </ observationRange> </referenceRange> </observation&gt ; </component> <component> <observation moodCode ="EVN" classCode="OBS"> <templateId root=& quot;2.16.840.1.070071.10.20.22.4.2" /> <id nullFlavor=&quot ;NA" /> <code codeSystem="local" code=" 300.0450" displayName="FUNGAL CULTURE, BLOOD." /> &lt ;statusCode code="completed" /> <effectiveTime value=& quot;305589914504" /> <value unit="RATIO" xsi:type ="PQ" value="18" /> <referenceRange> <observationRange> <text>6-26</text> </observationRange> </referenceRange> </ observation> </component> <component> < observation moodCode="EVN" classCode="OBS"> < templateId root="2.16.840.1.867314.10.20.22.4.2" /> < id nullFlavor="NA" /> <code codeSystem="local&quot ; code="300.0100" displayName="NA - Sodium" /> & lt;statusCode code="completed" /> <effectiveTime value= "097272248517"/> <value unit="MEQ/L" xsi:type ="PQ" value="135" /> <referenceRange> <observationRange> <text>134-144</text> </observationRange> </referenceRange> </ observation> </component> <component> < observation moodCode="EVN" classCode="OBS"> < templateId root="2.16.840.1.834959.10..22.4.2" /> < id nullFlavor="NA" /> <code codeSystem="local&quot ; code="300.0150" displayName="Potassium" /> &lt ;statusCode code="completed" /> <effectiveTime value=& quot;054152955004" /> <value unit="MEQ/L" xsi:type ="PQ" value="4.1" /> <referenceRange> <observationRange> <text>3.6-5</text> </observationRange> </referenceRange> </ observation> </component> <component> < observation moodCode="EVN" classCode="OBS"> < templateId root="2.16.840.1.360614.10..22.4.2" /><id nullFlavor="NA" /> <code codeSystem="local" code="300.0200" displayName="Chloride" /> < statusCode code="completed"/> <effectiveTime value=& quot;689228183935" /> <value unit="MEQ/L" xsi:type ="PQ" value="100" /> <referenceRange> <observationRange> <text>98-107</text> </observationRange> </referenceRange> </ observation> </component><component> <observation moodCode="EVN" classCode="OBS"> <templateId root=& quot;2.16.840.1.676471.10.20.22.4.2" /> <id nullFlavor=&quot ;NA" /> <code codeSystem="local" code=" 300.0250" displayName="CO2 - Carbon Dioxide" /> < statusCode code="completed" /> <effectiveTime value=&quot ;277505521342" /> <value unit="MEQ/L" xsi:type=& quot;PQ" value="20" /> <interpretationCode codeSystem="local" code="*" /> < referenceRange> <observationRange> <text> 22-30</text> </observationRange> </ referenceRange> </observation> </component> < component> <observation moodCode="EVN" classCode="OBS" > <templateId root="2.16.840.1.047163.10..22.4.2" /& gt; <id nullFlavor="NA" /> <code codeSystem=& quot;local" code="300.0300" displayName="Anion Gap" /& gt; <statusCode code="completed" /> < effectiveTime value="301359704690" /> <value unit=&quot ;MEQ/L" xsi:type="PQ" value="15" /> < referenceRange> <observationRange><text>5-15</text& gt; </observationRange> </referenceRange> & lt;/observation> </component> <component> < observation moodCode="EVN" classCode="OBS"> < templateId root="2.16.840.1.293564.10..22.4.2" /> < id nullFlavor="NA" /> <code codeSystem="local&quot ; code="300.0350" displayName="BUN - Blood Urea Nitrogen" /& gt; <statusCode code="completed" /> < effectiveTime value="768792377791" /> <value unit=&quot ;MG/DL" xsi:type="PQ" value="20.0" /> < referenceRange> <observationRange> <text> 9-20</text> </observationRange> </ referenceRange> </observation> </component> < component> <observation moodCode="EVN" classCode=" OBS"> <templateId root="2.16.840.1.074196.10.20.22.4.2& quot; /> <id nullFlavor="NA" /> <code codeSystem="local" code="300.0410" displayName=" Glomerular Filtration Rate" /> <statusCode code=" completed" /> <effectiveTime value="302834689933" /> <value unit="" xsi:type="PQ" value=" 63" /> <referenceRange> <observationRange& gt; <text>NRG</text> </observationRange& gt; </referenceRange> </observation> </ component> <component> <observation moodCode="EVN& quot; classCode="OBS"> <templateId root=" 2.16.840.1.836451.10.20.22.4.2" /> <id nullFlavor="NA& quot; /> <code codeSystem="local" code="300.0500& quot; displayName="Glucose" /> <statusCode code=" completed" /> <effectiveTime value="521340162682" /> <value unit="MG/DL" xsi:type="PQ" value="105& quot; /> <referenceRange> <observationRange> <text>75-110</text> </observationRange> </referenceRange> </observation> </component > <component> <observation moodCode="EVN" classCode="OBS"> <templateId root=" 2.16.840.1.967640.10.20.22.4.2" /> <id nullFlavor="NA" / > <code codeSystem="local" code="300.2000" displayName="Osmolality,Calculated" /> <statusCode code ="completed" /> <effectiveTime value="801522818006 " /> <value unit="MOSM/KG" xsi:type="PQ&quot ; value="263" /> <referenceRange> < observationRange> <text>261-280</text> </ observationRange> </referenceRange> </observation&gt ; </component> <component> <observation moodCode ="EVN" classCode="OBS"> <templateId root=& quot;2.16.840.1.219391.10.20.22.4.2" /> <id nullFlavor="NA&quot ; /> <code codeSystem="local" code="300.2200&quot ; displayName="Calcium" /> <statusCode code=" completed"/> <effectiveTime value="825660454405" / > <value unit="MG/DL" xsi:type="PQ" value=& quot;9.3" /> <referenceRange> <observationRange&gt ; <text>8.4-10.2</text> </ observationRange> </referenceRange> </observation&gt ; </component> <component> <observation moodCode=& quot;EVN" classCode="OBS"> <templateId root=" 2.16.840.1.712904.10.20.22.4.2" /> <id nullFlavor="NA& quot; /> <code codeSystem="local" code="300.2700& quot; displayName="Bilirubin,Total" /> <statusCode code ="completed" /> <effectiveTime value="528493513063&quot ; /> <value unit="MG/DL" xsi:type="PQ" value= "3.70" /> <interpretationCode codeSystem="local& quot; code="*" /> <referenceRange> < observationRange> <text>0.20-1.30</text> </observationRange> </referenceRange> </ observation> </component> <component> < observation moodCode="EVN" classCode="OBS"> < templateId root="2.16.840.1.321051.10.20.22.4.2" /> < id nullFlavor="NA" /> <code codeSystem="local" code="300.2975" displayName="Alkaline Phosphatase" /> <statusCode code="completed" /> < effectiveTime value="829108939725" /> <value unit=&quot ;U/L" xsi:type="PQ" value="160" /> < interpretationCode codeSystem="local" code="*" /> <referenceRange> <observationRange> < text>38-126</text> </observationRange> </ referenceRange> </observation> </component> < component> <observation moodCode="EVN" classCode=" OBS"> <templateId root="2.16.840.1.679074.10.20.22.4.2& quot; /> <id nullFlavor="NA" /> <code codeSystem="local" code="300.3050" displayName="AST - Aspartate Amino Transfer" /> <statusCode code=" completed" /> <effectiveTime value="826701748295" /> <value unit="U/L" xsi:type="PQ" value=& quot;417" /> <interpretationCode codeSystem="local&quot ; code="*" /> <referenceRange> < observationRange> <text>17-59</text> < /observationRange> </referenceRange> </observation& gt; </component> <component> <observation moodCode="EVN" classCode="OBS"> <templateId root="2.16.840.1.119520.10.20.22.4.2" /> <id nullFlavor ="NA" /> <code codeSystem="local" code=" 300.3100" displayName="ALT" /> <statusCode code=& quot;completed" /> <effectiveTime value="274075177396& quot; /> <value unit="U/L" xsi:type="PQ" value="224" /> <interpretationCode codeSystem=" local" code="*" /> <referenceRange> < observationRange> <text>21-72</text> < /observationRange> </referenceRange> </observation& gt; </component> <component> <observation moodCode="EVN" classCode="OBS"> <templateId root=& quot;2.16.840.1.808620.10.20.22.4.2" /> <id nullFlavor=&quot ;NA" /> <code codeSystem="local" code=" 300.3110" displayName="TP - Total Protein" /> < statusCode code="completed" /> <effectiveTime value=" 744037333495" /> <value unit="G/DL"xsi:type=" PQ" value="6.4" /> <referenceRange> <observationRange> <text>6.3-8.2</text> </observationRange> </referenceRange> </ observation> </component> <component> < observation moodCode="EVN" classCode="OBS"> < templateId root="2.16.840.1.660706.10.20.22.4.2" /> < id nullFlavor="NA" /> <code codeSystem="local&quot ; code="300.3120" displayName="Albumin Level" /> <statusCode code="completed" /> <effectiveTime value="622004160674" /> <value unit="G/DL" xsi:type="PQ" value="3.8" /> <referenceRange& gt; <observationRange> <text>3.5-5.0</ text> </observationRange> </referenceRange> </observation> </component> <component> < observation moodCode="EVN" classCode="OBS"> < templateId root="2.16.840.1.206277.10.20.22.4.2" /> < id nullFlavor="NA" /> <code codeSystem="local" code="300.3130" displayName="Globulin" /> < statusCode code="completed" /> <effectiveTime value=& quot;838373950709" /> <value unit="G/DL" xsi:type= "PQ" value="2.6" /> <referenceRange> <observationRange> <text>2.4-3.6</text> </observationRange> </referenceRange> < /observation> </component> <component> < observation moodCode="EVN" classCode="OBS"> < templateId root="2.16.840.1.900764.10.20.22.4.2" /> < id nullFlavor="NA" /> <code codeSystem="local&quot ; code="300.3140" displayName="Albumin/Globulin Ratio" /&gt ; <statusCode code="completed" /> < effectiveTime value="223795001021" /> <value unit=&quot ;RATIO" xsi:type="PQ" value="1.5" /> < referenceRange> <observationRange> <text> 1.1-2.2</text> </observationRange> </ referenceRange> </observation> </component> < component> <observation moodCode="EVN" classCode=" OBS"> <templateId root="2.16.840.1.485286.10..22.4.2& quot; /> <id nullFlavor="NA" /> <code codeSystem="local" code="300.0095" displayName=" LICTERUS" /> <statusCode code="completed" /> <effectiveTime value="303141818596" /> < value unit="" xsi:type="PQ" value="< 2" /& gt; <referenceRange> <observationRange> <text>0-7</text> </observationRange> & lt;/referenceRange> </observation> </component> <component> <observation moodCode="EVN" classCode=& quot;OBS"> <templateId root=" 2.16.840.1.047874.10.20.22.4.2"/> <id nullFlavor="NA& quot; /> <code codeSystem="local"code="300.0096& quot; displayName="LHEMOLYSIS" /> <statusCode code=& quot;completed" /> <effectiveTime value="376495709337& quot; /> <value unit="" xsi:type="PQ" value=& quot;< 15" /> <referenceRange> < observationRange> <text>0-25</text> </ observationRange> </referenceRange> </observation&gt ; </component> <component> <observation moodCode ="EVN" classCode="OBS"> <templateId root=& quot;2.16.840.1.772306.10.20.22.4.2" /> <id nullFlavor=&quot ;NA" /> <code codeSystem="local" code=" 300.0097" displayName="LTURBIDITY" /> <statusCode code="completed" /> <effectiveTime value=" 382450067477" /> <value unit="" xsi:type="PQ& quot; value="< 20" /> <referenceRange> <observationRange> <text>0-20</text> </observationRange> </referenceRange> </ observation> </component></organizer> </entry> < entry> <organizer moodCode="EVN" classCode="BATTERY&quot ;> <templateId root="2.16.840.1.570827.10.20.22.4.1" /> <id nullFlavor="NA" /> <code codeSystem="local& quot; code="LTROPI" displayName="L300.3490" /> < statusCode code="completed" /> <component> < observation moodCode="EVN" classCode="OBS"> < templateId root="2.16.840.1.990532.10.20.22.4.2" /> < id nullFlavor="NA" /> <code codeSystem="local&quot ; code="300.3500" displayName="Troponin I" /> & lt;statusCode code="completed" /> <effectiveTime value=" 747915128674" /> <value unit="ng/ml" xsi:type=& quot;PQ" value="< 0.012" /> <referenceRange > <observationRange> <text>0-0.12</text> </observationRange> </referenceRange> < /observation> </component> </organizer> </entry> <entry> <organizer moodCode="EVN" classCode="BATTERY& quot;> <templateId root="2.16.840.1.349694.10.20.22.4.1" /& gt;<id nullFlavor="NA" /> <code codeSystem="local& quot; code="HOWARD" displayName="L600.0100" /> < statusCode code="completed" /> <component> < observation moodCode="EVN" classCode="OBS"> < templateId root="2.16.840.1.272723.10.20.22.4.2" /> < id nullFlavor="NA" /> <code codeSystem="local&quot ; code="200.0150" displayName="POTASSIUM" /> &lt ;statusCode code="completed" /> <effectiveTime value=& quot;924157475483" /> <value unit="" xsi:type=& quot;PQ" value="Urine, Clean Catch" /> < referenceRange> <observationRange> <text> NRG</text> </observationRange> </referenceRange > </observation> </component> <component> <observation moodCode="EVN" classCode="OBS"> <templateId root="2.16.840.1.477596.10.20.22.4.2" /> <id nullFlavor="NA" /> <code codeSystem=& quot;local" code="200.0200" displayName="CHLORIDE" /&gt ; <statusCode code="completed" /> < effectiveTime value="501143303223" /> <value unit=&quot ;" xsi:type="PQ" value="YELLOW" /> < referenceRange> <observationRange> <text> YELLOW</text> </observationRange> </ referenceRange> </observation> </component> < component> <observation moodCode="EVN" classCode=" OBS"> <templateId root="2.16.840.1.059773.10.20.22.4.2& quot; /> <id nullFlavor="NA" /> <code codeSystem="local" code="200.0300" displayName="ANION GAP" /> <statusCode code="completed" /> <effectiveTime value="621942514177" /> <value unit=& quot;" xsi:type="PQ" value="CLEAR" /> < referenceRange> <observationRange> <text> NRG</text> </observationRange> </ referenceRange> </observation> </component> < component> <observation moodCode="EVN" classCode=" OBS"> <templateId root="2.16.840.1.992141.10.20.22.4.2& quot; /> <id nullFlavor="NA" /> <code codeSystem="local" code="200.0350" displayName="BLOOD UREA NITROGEN" /> <statusCode code="completed" /& gt; <effectiveTime value="763965227675" /> &lt ;value unit="" xsi:type="PQ" value="6.0" /> & lt;referenceRange> <observationRange> <text& gt;5.0-8.0</text> </observationRange> </ referenceRange> </observation> </component> < component> <observation moodCode="EVN" classCode=" OBS"> <templateId root="2.16.840.1.059678.10.20.22.4.2& quot; /> <id nullFlavor="NA" /> <code codeSystem="local" code="200.0450" displayName="BUN/ CREATININE RATIO" /> <statusCode code="completed" /> <effectiveTime value="921699834523" /> < value unit="" xsi:type="PQ" value="TRACE" /> <referenceRange> <observationRange> <text>NEGATIVE</text> </observationRange> &lt ;/referenceRange> </observation></component> < component> <observation moodCode="EVN" classCode=" OBS"> <templateId root="2.16.840.1.312348.10.20.22.4.2& quot; /> <id nullFlavor="NA" /> <code codeSystem="local" code="200.0500" displayName="GLUCOSE " /> <statusCode code="completed" /> & lt;effectiveTime value="821761934864" /> <value unit=& quot;" xsi:type="PQ" value="NEGATIVE" /> & lt;referenceRange> <observationRange> <text> NEGATIVE</text> </observationRange> </ referenceRange> </observation> </component> < component> <observation moodCode="EVN" classCode=" OBS"> <templateId root="2.16.840.1.168469.10..22.4.2& quot; /> <id nullFlavor="NA" /> <code codeSystem="local" code="200.0600" displayName="CALCIUM " /> <statusCode code="completed" /> < effectiveTime value="252826668749" /> <value unit=&quot ;" xsi:type="PQ" value="NEGATIVE" /> < referenceRange> <observationRange> <text> NEGATIVE</text> </observationRange> </ referenceRange> </observation> </component> < component> <observation moodCode="EVN" classCode=" OBS"> <templateId root="2.16.840.1.928145.10.20.22.4.2& quot; /> <id nullFlavor="NA" /> <code codeSystem="local" code="200.0750" displayName=" BILIRUBIN, CONJUG &amp; UNCONJUG" /> <statusCode code="completed" /> <effectiveTime value=" 243001190244" /> <value unit="" xsi:type="PQ& quot; value="NEGATIVE" /> <referenceRange> < observationRange> <text>NEGATIVE</text> & lt;/observationRange> </referenceRange> </ observation> </component> <component> < observation moodCode="EVN" classCode="OBS"> < templateId root="2.16.840.1.555097.10.20.22.4.2" /> < id nullFlavor="NA" /> <code codeSystem="local&quot ; code="200.0325" displayName="Specific [place],Urine" /&gt ; <statusCode code="completed" /> < effectiveTime value="233431356020" /> <value unit=&quot ;" xsi:type="PQ" value="1.010" /> < referenceRange><observationRange> <text>1.015-1.025& lt;/text> </observationRange> </referenceRange& gt; </observation> </component><component> <observation moodCode="EVN" classCode="OBS"> < templateId root="2.16.840.1.600641.10.20.22.4.2" /> < id nullFlavor="NA" /> <code codeSystem="local&quot ; code="200.0410" displayName="Leukocyte Esterase,Urine" /& gt; <statusCode code="completed" /> < effectiveTime value="378209545681" /> <value unit=&quot ;" xsi:type="PQ" value="NEGATIVE" /> < referenceRange> <observationRange> <text>NEGATIVE& lt;/text> </observationRange> </referenceRange& gt; </observation> </component> <component> <observation moodCode="EVN" classCode="OBS"> <templateId root="2.16.840.1.854740.10.20.22.4.2" /> & lt;id nullFlavor="NA" /> <code codeSystem="local& quot; code="200.0420" displayName="Nitrate,Urine" /> <statusCode code="completed" /><effectiveTime value=& quot;517462554160" /> <value unit="" xsi:type=& quot;PQ" value="NEGATIVE" /> <referenceRange> <observationRange> <text>NEGATIVE</text& gt; </observationRange> </referenceRange> & lt;/observation> </component> <component> < observation moodCode="EVN" classCode="OBS"> < templateId root="2.16.840.1.369610.10.20.22.4.2" /> < id nullFlavor="NA" /> <code codeSystem="local&quot ; code="200.0740" displayName="Urobilinogen,Urine" /> <statusCode code="completed" /> < effectiveTime value="911384915181" /> <value unit=&quot ;EU/DL" xsi:type="PQ" value="1.0" /> < referenceRange> <observationRange> <text> NORMAL</text> </observationRange> </ referenceRange> </observation> </component> < component> <observation moodCode="EVN" classCode="OBS& quot;> <templateId root="2.16.840.1.936673.10.20.22.4.2&quot ; /> <id nullFlavor="NA" /> <code codeSystem="local" code="200.0825" displayName="Occult Blood,Urine - Dipstick" /> <statusCode code="completed& quot; /> <effectiveTime value="943030229257" /> <value unit="" xsi:type="PQ" value="NEGATIVE& quot; /> <referenceRange> <observationRange> <text>NEGATIVE</text> </observationRange > </referenceRange> </observation> </component&gt ; <component> <observation moodCode="EVN" classCode="OBS"> <templateId root=" 2.16.840.1.123868.10.20.22.4.2" /> <id nullFlavor="NA& quot; /> <code codeSystem="local" code="200.0992& quot; displayName="Urine Microscopic (UA)" /> < statusCode code="completed" /> <effectiveTime value=& quot;387650669244" /> <value unit="" xsi:type=& quot;PQ" value="Microscopic Not Ind." /> < referenceRange> <observationRange> <text> NRG</text> </observationRange> </referenceRange& gt; </observation> </component> </organizer> & lt;/entry> <entry> <organizer moodCode="EVN" classCode ="BATTERY"> <templateId root=" 2.16.840.1.778960.10.20.22.4.1" /> <id nullFlavor="NA&quot ; /> <code codeSystem="local" code="MCUBLD" displayName="M110.0180" /> <statusCode code="completed " /> <component> <observation moodCode="EVN& quot; classCode="OBS"> <templateId root=" 2.16.840.1.609105.10.20.22.4.2" /> <id nullFlavor="NA& quot; /> <code codeSystem="local" code="110.0200& quot; displayName="ANTI-D" /> <statusCode code=" completed" /> <effectiveTime value="[id number]" /> <value unit="" xsi:type="PQ" value=" " /> <referenceRange> <observationRange&gt ; <text>NRG</text> </observationRange> </referenceRange> </observation> </component> <component> <observation moodCode="EVN" classCode=& quot;OBS"> <templateId root=" [id number]" /> <id nullFlavor="NA& quot; /> <code codeSystem="local" code="100.0120& quot; displayName="Gram Stain w/BC" /> <statusCode code=& quot;completed" /> <effectiveTime value="570857011723& quot; /> <value unit="" xsi:type="PQ" value=& quot; " /> <referenceRange> < observationRange> <text>NRG</text> </ observationRange> </referenceRange> </observation&gt ; </component> </organizer> </entry> <entry> <organizer moodCode="EVN" classCode="BATTERY"> <templateId root="2.16.840.1.713501.10.20.22.4.1" /> < id nullFlavor="NA" /> <code codeSystem="local" code="LLIPASE" displayName="L300.4950" /> < statusCode code="completed" /> <component> < observation moodCode="EVN" classCode="OBS"> < templateId root="2.16.840.1.007112.10.20.22.4.2" /> < id nullFlavor="NA" /> <code codeSystem="local&quot ; code="300.4950" displayName="Lipase" /> < statusCode code="completed" /> <effectiveTime value=& quot;610383141664" /> <value unit="U/L" xsi:type=& quot;PQ" value="123" /> <referenceRange> <observationRange> <text>23-300</text> & lt;/observationRange> </referenceRange> </ observation> </component> </organizer> </entry> & lt;entry> <organizer moodCode="EVN" classCode="BATTERY& quot;> <templateId root="2.16.840.1.512187.10.20.22.4.1" /& gt; <id nullFlavor="NA" /> <code codeSystem=" local"code="LLACTATE" displayName="L200.2067" /> <statusCode code="completed" /> <component> <observation moodCode="EVN" classCode="OBS"> <templateId root="2.16.840.1.091942.10.20.22.4.2" /> < id nullFlavor="NA" /> <code codeSystem="local&quot ; code="300.3230" displayName="Lactate" /> < statusCode code="completed" /> <effectiveTime value=& quot;139261743002" /> <value unit="MMOL/L" xsi: type="PQ" value="3.0" /> <interpretationCode codeSystem="local" code="*" /> < referenceRange> <observationRange> <text> 0.6-2.2</text> </observationRange> </ referenceRange> </observation> </component> </ organizer> </entry> <entry> <organizer moodCode="EVN " classCode="BATTERY"> <templateId root=" 2.16.840.1.486552.10.20.22.4.1" /> <id nullFlavor="NA&quot ; /> <code codeSystem="local" code="LPROCALC" displayName="L200.2068" /> <statusCode code="completed " /> <component> <observation moodCode="EVN& quot; classCode="OBS"> <templateId root=" 2.16.840.1.033199.10.20.22.4.2" /> <id nullFlavor="NA& quot; /> <code codeSystem="local" code="300.3240& quot; displayName="Procalcitonin" /> <statusCode code=& quot;completed" /> <effectiveTime value="042005314746& quot; /> <value unit="NG/ML" xsi:type="PQ" value="33.14" /> <referenceRange> < observationRange> <text>NRG</text> </ observationRange></referenceRange> </observation> &lt ;/component> </organizer> </entry> <entry> < organizer moodCode="EVN" classCode="BATTERY"> < templateId root="2.16.840.1.566294.10.20.22.4.1" /> <id nullFlavor="NA" /> <code codeSystem="local" code= "LACTG" displayName="LACTIC ACID" /> <statusCode code="completed" /> <component> <observation moodCode="EVN" classCode="OBS"> <templateId root="2.16.840.1.428240.10.20.22.4.2" /> <id nullFlavor ="NA" /> <code codeSystem="local" code=" LACT" displayName="LACTIC ACID" /> <statusCode code="completed" /> <effectiveTime value=" 937500550033" /> <value unit="mmol/L" xsi:type=& quot;PQ"value="3.5" /> <interpretationCode codeSystem="local" code="*" /> < referenceRange> <observationRange> <text> 0.5-2.0</text> </observationRange> </ referenceRange> </observation> </component> </ organizer> </entry> <entry> <organizer moodCode="EVN& quot; classCode="BATTERY"> <templateId root=" 2.16.840.1.446692.10.20.22.4.1" /> <id nullFlavor="NA&quot ; /> <code codeSystem="local" code="BNP" displayName="B-TYPE NATRIURETIC PEPTIDE" /> <statusCode code="completed" /> <component> <observation moodCode="EVN" classCode="OBS"> <templateId root="2.16.840.1.463506.10.20.22.4.2" /> <id nullFlavor ="NA" /> <code codeSystem="local" code=" BNP" displayName="B-TYPE NATRIURETIC PEPTIDE" /> < statusCode code="completed" /> <effectiveTime value=& quot;520547054134" /> <value unit="pg/mL" xsi:type ="PQ" value="869" /> <interpretationCode codeSystem="local" code="*" /> < referenceRange> <observationRange> <text> < 100</text> </observationRange> </ referenceRange> </observation> </component> </ organizer> </entry> <entry> <organizer moodCode="EVN " classCode="BATTERY"> <templateId root=" 2.16.840.1.844807.10.20.22.4.1" /> <id nullFlavor="NA&quot ; /> <code codeSystem="local" code="CBCD" displayName="CBC W/DIFF" /> <statusCode code="completed& quot; /> <component> <observation moodCode="EVN& quot; classCode="OBS"> <templateId root=" 2.16.840.1.482095.10.20.22.4.2" /> <id nullFlavor="NA& quot; /> <code codeSystem="local" code="GR#" displayName="GRANULOCYTE #" /> <statusCode code=" completed" /> <effectiveTime value="172446550748"/ > <value unit="k/cumm" xsi:type="PQ" value=& quot;16.7" /> <interpretationCode codeSystem="local& quot; code="*" /> <referenceRange> < observationRange> <text>2.0-9.0</text> < /observationRange> </referenceRange> </observation& gt; </component> <component> <observation moodCode=& quot;EVN" classCode="OBS"> <templateId root=" 2.16.840.1.495954.10.20.22.4.2" /> <id nullFlavor="NA&quot ; /> <code codeSystem="local" code="LY#" displayName="LYMPHOCYTE #" /> <statusCode code=" completed" /> <effectiveTime value="935395155157" /> <value unit="k/cumm" xsi:type="PQ" value=& quot;0.4" /> <interpretationCodecodeSystem="local&quot ; code="*" /> <referenceRange> < observationRange> <text>1.0-4.0</text> & lt;/observationRange> </referenceRange> </ observation> </component> <component> < observation moodCode="EVN" classCode="OBS"> < templateId root="2.16.840.1.557299...22.4.2" /> < id nullFlavor="NA" /> <code codeSystem="local&quot ; code="LY%" displayName="LYMPHOCYTE %" /&gt ; <statusCode code="completed" /> <effectiveTime value="388869488315" /> <value unit="%& quot; xsi:type="PQ" value="2" /> < interpretationCode codeSystem="local" code="*" /> <referenceRange> <observationRange> < text>20-30</text> </observationRange> </ referenceRange> </observation> </component> < component> <observation moodCode="EVN" classCode=" OBS"> <templateId root="2.16.840.1.882104.10.20.22.4.2& quot; /> <id nullFlavor="NA" /> <code codeSystem="local" code="MCH" displayName="MEAN CELL HGB" /> <statusCode code="completed" /> <effectiveTime value="147883912597" /> <value unit="pg" xsi:type="PQ" value="31.7" /> <referenceRange> <observationRange> < text>27.0-33.0</text> </observationRange> &lt ;/referenceRange> </observation> </component> &lt ;component> <observation moodCode="EVN" classCode=" OBS"> <templateId root="2.16.840.1.286234.10.20.22.4.2& quot; /> <id nullFlavor="NA" /> <code codeSystem="local" code="MCHC" displayName="MEAN CELL HGB CONCENTRATION" /> <statusCode code="completed&quot ; /> <effectiveTime value="526747893992" /> <value unit="g/dL" xsi:type="PQ" value="34.8&quot ; /> <referenceRange> <observationRange> <text>32.0-37.0</text> </observationRange&gt ; </referenceRange> </observation> </component > <component> <observation moodCode="EVN" classCode="OBS"> <templateId root=" 2.16.840.1.273252.10.20.22.4.2" /> <id nullFlavor="NA& quot; /> <code codeSystem="local" code="MCV" displayName="MEAN CELL VOLUME" /> <statusCode code=& quot;completed" /> <effectiveTime value="073661417731& quot; /> <value unit="fl" xsi:type="PQ" value ="91.1" /> <referenceRange> < observationRange> <text>80.0-100.0</text> </observationRange> </referenceRange> </ observation> </component> <component> < observation moodCode="EVN" classCode="OBS"> < templateId root="2.16.840.1.095782.10.20.22.4.2" /> < id nullFlavor="NA" /> <code codeSystem="local&quot ; code="MO#" displayName="MONOCYTE #" /> < statusCode code="completed" /> <effectiveTime value=& quot;234882768301" /> <value unit="k/cumm" xsi: type="PQ" value="0.7" /> <referenceRange> <observationRange> <text>0.1-1.0</text& gt; </observationRange> </referenceRange> < /observation> </component> <component> < observation moodCode="EVN" classCode="OBS"> < templateId root="2.16.840.1.772364.10..22.4.2" /> <id nullFlavor="NA" /> <code codeSystem="local" code="MO%" displayName="MONOCYTE %" /> <statusCode code="completed" /> < effectiveTime value="253993930209" /> <value unit=&quot ;%" xsi:type="PQ" value="4" /> < referenceRange> <observationRange> <text> 4-6</text></observationRange> </referenceRange> </observation> </component> <component> & lt;observation moodCode="EVN" classCode="OBS"> & lt;templateId root="2.16.840.1.330490.10.20.22.4.2" /> &lt ;id nullFlavor="NA" /> <code codeSystem="local& quot; code="MPVT" displayName="MEAN PLATELET VOLUME" /> <statusCode code="completed" /> < effectiveTime value="977727703664" /> <value unit=&quot ;fl" xsi:type="PQ" value="10.3" /> < referenceRange> <observationRange> <text>8.5- 10.9</text> </observationRange> </ referenceRange> </observation> </component> < component> <observation moodCode="EVN" classCode=" OBS"> <templateId root="2.16.840.1.210685.10.20.22.4.2& quot; /> <id nullFlavor="NA" /> <code codeSystem="local" code="RBC" displayName="RED BLOOD CELL" /> <statusCode code="completed" /> < effectiveTime value="540743788534" /> <value unit=&quot ;m/cumm" xsi:type="PQ" value="3.60" /> < interpretationCode codeSystem="local" code="*" /> <referenceRange> <observationRange> < text>4.00-6.00</text> </observationRange> &lt ;/referenceRange> </observation> </component> & lt;component> <observation moodCode="EVN" classCode="OBS& quot;> <templateId root="2.16.840.1.441734.10.20.22.4.2&quot ; /> <id nullFlavor="NA" /> <code codeSystem= "local" code="RDW" displayName="RED CELL DISTRIBUTION WIDTH" /> <statusCode code="completed" /> <effectiveTime value="827747701815" /> <value unit="%" xsi:type="PQ" value="13.0" /> <referenceRange> <observationRange> <text>11.0-15.6</text> </observationRange> </referenceRange> </observation> </component&gt ; <component> <observation moodCode="EVN" classCode=& quot;OBS"> <templateId root=" 2.16.840.1.193604.10.20.22.4.2" /> <id nullFlavor="NA& quot; /> <code codeSystem="local" code="WBC" displayName="WHITE BLOOD CELL" /> <statusCode code=& quot;completed" /> <effectiveTime value="657023802132& quot; /> <value unit="k/cumm" xsi:type="PQ" value="18.2" /> <interpretationCode codeSystem=" local" code="*" /> <referenceRange> <observationRange> <text>5.0-10.0</text> </observationRange> </referenceRange> </ observation> </component> <component> < observation moodCode="EVN" classCode="OBS"> < templateId root="2.16.840.1.960485.10.20.22.4.2" /> < id nullFlavor="NA" /> <code codeSystem="local&quot ; code="HGBT" displayName="HEMOGLOBIN" /> < statusCode code="completed" /> <effectiveTime value=& quot;111368983745" /> <value unit="gm/dL" xsi:type ="PQ" value="11.4" /> <interpretationCode codeSystem="local" code="*" /> < referenceRange> <observationRange> <text> 14.0-18.0</text> </observationRange> </ referenceRange> </observation> </component> < component> <observation moodCode="EVN" classCode=" OBS"> <templateId root="2.16.840.1.764236.10.20.22.4.2& quot; /> <id nullFlavor="NA" /> <code codeSystem ="local" code="HCTT" displayName="HEMATOCRIT" /&gt ; <statusCode code="completed"/> < effectiveTime value="834607008175" /> <value unit=&quot ;%" xsi:type="PQ" value="32.8" /> & lt;interpretationCode codeSystem="local" code="*" /> <referenceRange> <observationRange> & lt;text>40.0-54.0</text> </observationRange> </referenceRange> </observation> </component> <component> <observation moodCode="EVN" classCode=& quot;OBS"> <templateId root=" 2.16.840.1.351926.10..22.4.2" /> <id nullFlavor="NA& quot; /> <code codeSystem="local" code="PLTT&quot ; displayName="PLATELET COUNT" /> <statusCode code=& quot;completed" /> <effectiveTime value="320508040653& quot; /> <value unit="k/cumm" xsi:type="PQ" value="102" /> <interpretationCode codeSystem=" local"code="*" /> <referenceRange> & lt;observationRange> <text>150-400</text> </ observationRange> </referenceRange> </observation&gt ; </component> </organizer> </entry> <entry> <organizer moodCode="EVN" classCode="BATTERY"> <templateId root="2.16.840.1.078077.10.20.22.4.1" /> < id nullFlavor="NA" /> <code codeSystem="local" code="DIFFM" displayName="MANUAL DIFF(R)" /> < statusCode code="completed" /> <component> < observation moodCode="EVN" classCode="OBS"> < templateId root="2.16.840.1.192938.10.20.22.4.2" /> < id nullFlavor="NA" /> <code codeSystem="local&quot ; code="BAND%" displayName="BAND %" /> <statusCode code="completed" /> < effectiveTime value="294262352450" /> <value unit=&quot ;%" xsi:type="PQ" value="32" /> &lt ;interpretationCode codeSystem="local" code="*" /> <referenceRange> <observationRange> < text>0-10</text> </observationRange> </ referenceRange> </observation> </component> < component> <observation moodCode="EVN" classCode=" OBS"> <templateId root="2.16.840.1.103094.10.20.22.4.2& quot; /> <id nullFlavor="NA" /> <code codeSystem="local" code="MANDIFF" displayName=" DIFFERENTIAL" /> <statusCode code="completed" /&gt ; <effectiveTime value="773489403054" /> < value unit="" xsi:type="PQ" value="MANUAL" /> <referenceRange> <observationRange> < text /> </observationRange> </referenceRange&gt ; </observation> </component> <component> <observation moodCode="EVN" classCode="OBS"> <templateId root="2.16.840.1.322906.10.20.22.4.2" /> <id nullFlavor="NA" /> <code codeSystem=" local" code="META%" displayName="METAMYELOCYTE & #37;" /> <statusCode code="completed" /> <effectiveTime value="572297272491" /> <value unit="%" xsi:type="PQ" value="2" /> <interpretationCode codeSystem="local" code="*" /& gt; <referenceRange> <observationRange> <text /> </observationRange> </referenceRange> </observation> </component> <component> <observation moodCode="EVN" classCode="OBS"> <templateId root="2.16.840.1.830723.10..22.4.2" /> <id nullFlavor="NA" /> <code codeSystem=" local" code="RMORPH" displayName="RBC MORPH" /> <statusCode code="completed" /> < effectiveTime value="282325316618" /> <value unit=&quot ;" xsi:type="PQ" value="NOTED" /> < referenceRange> <observationRange> <text /> </observationRange> </referenceRange> </ observation> </component> <component> < observation moodCode="EVN" classCode="OBS"> < templateId root="2.16.840.1.197992.10.20.22.4.2" /> < id nullFlavor="NA" /> <code codeSystem="local&quot ; code="SEG%" displayName="SEGMENTED NEUTROPHIL % " /> <statusCode code="completed" /> & lt;effectiveTime value="842541916346" /> <value unit=& quot;%" xsi:type="PQ" value="60" /> <referenceRange> <observationRange> < text>50-70</text> </observationRange> </ referenceRange> </observation> </component> </ organizer> </entry> <entry> <organizer moodCode="EVN " classCode="BATTERY"> <templateId root=" 2.16.840.1.289218.10.20.22.4.1" /> <id nullFlavor="NA&quot ; /> <code codeSystem="local" code="PT" displayName="PROTHROMBIN TIME WITH INR" /> <statusCode code ="completed" /> <component> <observation moodCode="EVN" classCode="OBS"> <templateId root="2.16.840.1.612141.10.20.22.4.2" /> <id nullFlavor ="NA" /> <code codeSystem="local" code=" INRX" displayName="INTERNATIONAL NORMAL RATIO" /> &lt ;statusCode code="completed" /> <effectiveTime value=& quot;704321509388" /> <value unit="" xsi:type=& quot;PQ" value="1.4" /> <interpretationCode codeSystem="local" code="*" /> < referenceRange> <observationRange> <text> 0.9-1.1</text> </observationRange> </ referenceRange> </observation> </component> < component> <observation moodCode="EVN" classCode=" OBS"> <templateId root="2.16.840.1.427018.10.20.22.4.2& quot; /> <id nullFlavor="NA" /> <code codeSystem="local" code="PTPAT" displayName=" PROTHROMBIN TIME" /> <statusCode code="completed" /> <effectiveTime value="549300392699" /> & lt;value unit="sec" xsi:type="PQ" value="16.4" /& gt; <interpretationCode codeSystem="local" code="*" /&gt ; <referenceRange> <observationRange> <text>10.0-12.8</text> </observationRange> &lt ;/referenceRange> </observation> </component> < /organizer> </entry> <entry> <organizer moodCode=" EVN" classCode="BATTERY"> <templateId root=" 2.16.840.1.232115.10.20.22.4.1" /> <id nullFlavor="NA&quot ; /> <code codeSystem="local" code="METABC" displayName="METABOLIC PANEL, COMPREHN" /> <statusCodecode= "completed" /> <component> <observation moodCode="EVN" classCode="OBS"> <templateId root="2.16.840.1.090711.10.20.22.4.2" /> <id nullFlavor ="NA" /> <code codeSystem="local" code=" K" displayName="POTASSIUM" /> <statusCode code=& quot;completed" /> <effectiveTime value="453730554541& quot; /> <value unit="mmol/L" xsi:type="PQ" value="3.9" /> <referenceRange> < observationRange> <text>3.5-5.3</text></ observationRange> </referenceRange> </observation&gt ; </component> <component> <observation moodCode ="EVN" classCode="OBS"> <templateId root=& quot;2.16.840.1.108348.10.20.22.4.2" /> <id nullFlavor=&quot ;NA" /> <code codeSystem="local" code="eGFR& quot; displayName="EST GFR (MDRD)" /> <statusCode code= "completed" /> <effectiveTime value="580338144054& quot; /> <value unit="mL/min" xsi:type="PQ" value="48" /> <interpretationCode codeSystem=" local" code="*" /> <referenceRange> <observationRange> <text>> 59</text> </observationRange> </referenceRange> </ observation> </component> <component> < observation moodCode="EVN" classCode="OBS"> < templateId root="2.16.840.1.731549.10.20.22.4.2" /> < id nullFlavor="NA" /> <code codeSystem="local&quot ; code="GAP" displayName="ANION GAP" /> < statusCode code="completed" /> <effectiveTime value=& quot;697436808556" /> <value unit="mmol/L" xsi: type="PQ" value="12" /> <referenceRange> <observationRange> <text>5-15</text> </observationRange> </referenceRange> </ observation> </component> <component> < observation moodCode="EVN" classCode="OBS"> < templateId root="2.16.840.1.576995.10.20.22.4.2" /> < id nullFlavor="NA" /> <code codeSystem="local&quot ; code="eCrCl" displayName="EST CrCl (CG)" /> < statusCode code="completed" /> <effectiveTime value=& quot;464084213173" /> <value unit="mL/min" xsi: type="PQ" value="37" /> <interpretationCode codeSystem="local" code="*" /> <referenceRange> <observationRange> <text>> 59</ text> </observationRange> </referenceRange> </observation> </component> <component> <observation moodCode="EVN" classCode="OBS"> <templateId root="2.16.840.1.261472.10..22.4.2" /> <id nullFlavor="NA" /> <code codeSystem=" local" code="GLU" displayName="GLUCOSE" /> <statusCode code="completed" /> <effectiveTime value ="672552651416" /> <valueunit="mg/dL" xsi: type="PQ" value="109" /> <interpretationCode codeSystem="local" code="*" /> < referenceRange> <observationRange> <text>70-99</ text> </observationRange> </referenceRange> </observation> </component> <component> <observation moodCode="EVN" classCode="OBS">< templateId root="2.16.840.1.492652.10..22.4.2" /> < id nullFlavor="NA" /> <code codeSystem="local&quot ; code="CA" displayName="CALCIUM" /> < statusCode code="completed" /> <effectiveTime value=& quot;260299046733" /> <value unit="mg/dL" xsi:type ="PQ" value="8.0" /> <interpretationCode codeSystem="local" code="*" /> < referenceRange> <observationRange> <text> 8.5-10.1</text> </observationRange> </ referenceRange> </observation> </component> < component> <observation moodCode="EVN" classCode=" OBS"> <templateId root="2.16.840.1.794411.10.20.22.4.2& quot; /> <id nullFlavor="NA" /> <code codeSystem="local" code="BUN" displayName="BLOOD UREA NITROGEN" /> <statusCode code="completed" /> <effectiveTime value="910112317654" /> <value unit=& quot;mg/dL" xsi:type="PQ" value="22"/> < interpretationCode codeSystem="local" code="*" />< referenceRange> <observationRange> <text> 7-20</text> </observationRange> </ referenceRange> </observation> </component> < component> <observation moodCode="EVN" classCode=" OBS"> <templateId root="216.840.1.033535.10.20.22.4.2& quot; /> <id nullFlavor="NA" /> <code codeSystem="local" code="CREAT" displayName="CREATININE " /> <statusCode code="completed" /> & lt;effectiveTime value="235234532709" /> <value unit=& quot;mg/dL" xsi:type="PQ" value="1.4" /> & lt;interpretationCode codeSystem="local" code="*" /> <referenceRange> <observationRange> & lt;text>0.7-1.3</text> </observationRange> & lt;/referenceRange> </observation> </component> <component> <observation moodCode="EVN" classCode=& quot;OBS"> <templateId root=" 2.16.840.1.451676.10.20.22.4.2" /> <id nullFlavor="NA& quot; /> <code codeSystem="local" code="NA" displayName="SODIUM" /> <statusCode code=" completed" /> <effectiveTime value="372930190914" /> <value unit="mmol/L" xsi:type="PQ" value=& quot;132" /> <interpretationCode codeSystem="local&quot ; code="*" /> <referenceRange> < observationRange> <text>135-148</text> & lt;/observationRange> </referenceRange> </observation&gt ; </component> <component> <observation moodCode ="EVN" classCode="OBS"> <templateId root=& quot;2.16.840.1.066110.10.20.22.4.2" /> <id nullFlavor=&quot ;NA" /> <code codeSystem="local" code="CL& quot; displayName="CHLORIDE" /> <statusCode code=" completed" /> <effectiveTime value="045950409390" /> <value unit="mmol/L" xsi:type="PQ" value=& quot;101" /> <referenceRange> <observationRange> <text>98-110</text> </observationRange& gt; </referenceRange> </observation> </ component> <component> <observation moodCode="EVN& quot; classCode="OBS"> <templateId root=" 2.16.840.1.023907.10.20.22.4.2" /> <id nullFlavor="NA& quot; /> <code codeSystem="local" code="AST" displayName="AST/SGOT" /> <statusCode code=" completed" /> <effectiveTime value="269462829658" /> <value unit="Units/L" xsi:type="PQ" value= "402" /> <interpretationCode codeSystem="local& quot; code="*" /> <referenceRange> < observationRange> <text>10-37</text> < /observationRange> </referenceRange> </observation& gt; </component> <component> <observation moodCode="EVN" classCode="OBS"> <templateId root="2.16.840.1.856115.10.20.22.4.2" /> <id nullFlavor ="NA" /> <code codeSystem="local" code=" ALT" displayName="ALT/SGPT" /> <statusCode code=& quot;completed" /> <effectiveTime value="595728304199& quot; /> <value unit="Units/L" xsi:type="PQ" value="340" /> <interpretationCode codeSystem=" local" code="*" /> <referenceRange> <observationRange> <text>< 66</text> </observationRange> </referenceRange> </ observation> </component> <component> < observation moodCode="EVN" classCode="OBS"> < templateId root="2.16.840.1.025664.10.20.22.4.2" /> < id nullFlavor="NA" /> <code codeSystem="local&quot ; code="CO2" displayName="CARBON DIOXIDE" /> < statusCode code="completed" /> <effectiveTime value=& quot;203928967018" /> <value unit="mmol/L" xsi: type="PQ" value="19" /> <interpretationCode codeSystem="local" code="*" /> < referenceRange> <observationRange> <text> 21-32</text> </observationRange> </ referenceRange> </observation> </component> < component> <observation moodCode="EVN" classCode=" OBS"> <templateId root="2.16.840.1.811399.10.20.22.4.2& quot; /> <id nullFlavor="NA" /> <code codeSystem="local" code="TP" displayName="TOTAL PROTEIN " /> <statusCode code="completed" /> & lt;effectiveTime value="469720277940" /> <value unit=& quot;gm/dL" xsi:type="PQ" value="5.7" /> & lt;interpretationCode codeSystem="local" code="*" /> <referenceRange> <observationRange> & lt;text>6.4-8.2</text> </observationRange> & lt;/referenceRange> </observation> </component> <component> <observation moodCode="EVN" classCode=& quot;OBS"> <templateId root=" 2.16.840.1.375214.10.20.22.4.2" /> <id nullFlavor="NA& quot; /> <code codeSystem="local" code="ALB" displayName="ALBUMIN" /> <statusCode code=" completed" /> <effectiveTime value="485306062732" /> <value unit="gm/dL" xsi:type="PQ" value=& quot;2.7" /> <interpretationCode codeSystem="local&quot ; code="*" /> <referenceRange> < observationRange> <text>3.4-5.0</text> & lt;/observationRange> </referenceRange> </observation& gt; </component> <component> <observation moodCode="EVN" classCode="OBS"> <templateId root="2.16.840.1.094884.10.20.22.4.2" /> <id nullFlavor ="NA" /> <code codeSystem="local" code=" BILTOT" displayName="BILI TOTAL" /> <statusCode code="completed" /> <effectiveTime value=" 018784975476" /> <value unit="mg/dL" xsi:type=& quot;PQ" value="3.9" /> <interpretationCode codeSystem="local" code="*" /> < referenceRange> <observationRange> <text> 0.0-1.0</text> </observationRange> </ referenceRange> </observation> </component> < component> <observation moodCode="EVN" classCode=" OBS"> <templateId root="2.16.840.1.629462.10.20.22.4.2& quot; /> <id nullFlavor="NA" /> <code codeSystem="local" code="ALKP" displayName="ALKALINE PHOSPHATASE TOTAL" /> <statusCode code="completed&quot ; /> <effectiveTime value="814553017219" /> <value unit="IU/L" xsi:type="PQ" value="150" /> <interpretationCode codeSystem="local" code="*& quot; /> <referenceRange> <observationRange> <text>45-117</text> </observationRange> </referenceRange> </observation> </component& gt; </organizer> </entry> <entry> <organizer moodCode="EVN" classCode="BATTERY"> <templateId root="2.16.840.1.450385.10.20.22.4.1" /> <id nullFlavor=" NA" /> <code codeSystem="local" code="PHOS" displayName="PHOSPHORUS" /> <statusCode code=" completed" /> <component> <observation moodCode=" EVN" classCode="OBS"> <templateId root=" 2.16.840.1.852218.10.20.22.4.2" /> <id nullFlavor="NA& quot; /> <code codeSystem="local" code="PHOS&quot ; displayName="PHOSPHORUS" /> <statusCode code=" completed" /> <effectiveTime value="780472931887" /> <value unit="mg/dL" xsi:type="PQ" value=& quot;2.0" /> <interpretationCode codeSystem="local&quot ; code="*" /> <referenceRange> < observationRange> <text>2.5-4.9</text> </ observationRange> </referenceRange> </observation&gt ; </component> </organizer> </entry> <entry> <organizer moodCode="EVN" classCode="BATTERY"> <templateId root="2.16.840.1.150686.10.20.22.4.1" /> < id nullFlavor="NA" /> <code codeSystem="local" code="BILC" displayName="BILI CONJUGATED" /> < statusCode code="completed" /> <component>< observation moodCode="EVN" classCode="OBS"> < templateId root="2.16.840.1.384559.10.20.22.4.2" /> < id nullFlavor="NA" /> <code codeSystem="local" code ="BILC" displayName="BILI CONJUGATED" /> < statusCode code="completed" /> <effectiveTime value=& quot;365383042261" /> <value unit="mg/dL" xsi:type ="PQ" value="1.3" /> <interpretationCode codeSystem="local" code="*" /> < referenceRange> <observationRange> <text> 0.0-0.3</text> </observationRange> </ referenceRange> </observation> </component> </ organizer> </entry> <entry> <organizer moodCode="EVN " classCode="BATTERY"> <templateId root=" 2.16.840.1.120016.10.20.22.4.1" /> <id nullFlavor="NA&quot ; /> <code codeSystem="local" code="MAG" displayName="MAGNESIUM" /> <statusCode code="completed " /> <component> <observation moodCode="EVN& quot; classCode="OBS"> <templateId root=" 2.16.840.1.462145.10.20.22.4.2" /> <id nullFlavor="NA& quot; /> <code codeSystem="local" code="MAG" displayName="MAGNESIUM" /> <statusCode code=" completed" /> <effectiveTime value="226622795152" /> <value unit="mg/dL" xsi:type="PQ" value="1.5& quot; /> <interpretationCode codeSystem="local" code=& quot;*" /> <referenceRange> < observationRange> <text>1.8-2.4</text> & lt;/observationRange> </referenceRange> </ observation> </component> </organizer> </entry> & lt;entry> <organizer moodCode="EVN" classCode="BATTERY& quot;> <templateId root="2.16.840.1.463659.10.20.22.4.1" /& gt; <id nullFlavor="NA" /> <code codeSystem=" local" code="TROPI" displayName="TROPONIN I" /> <statusCode code="completed" /> <component> <observation moodCode="EVN" classCode="OBS"> <templateId root="2.16.840.1.967190.10.20.22.4.2" /> & lt;idnullFlavor="NA" /> <code codeSystem="local& quot; code="TROPI" displayName="TROPONIN I" /> & lt;statusCode code="completed" /> <effectiveTime value=& quot;485094376263" /> <value unit="ng/mL" xsi:type ="PQ" value="0.03" /> <referenceRange> <observationRange> <text>< 0.07</ text> </observationRange> </referenceRange> </observation> </component> </organizer> </ entry> <entry> <organizer moodCode="EVN" classCode=& quot;BATTERY"> <templateId root=" 2.16.840.1.355821.10.20.22.4.1" /> <id nullFlavor="NA" /&gt ; <code codeSystem="local" code="LACTG" displayName= "LACTIC ACID" /> <statusCode code="completed" /& gt; <component> <observation moodCode="EVN" classCode="OBS"> <templateId root=" 2.16.840.1.409391.10.20.22.4.2" /> <id nullFlavor="NA& quot; /> <code codeSystem="local" code="LACT&quot ; displayName="LACTIC ACID" /> <statusCode code=" completed" /> <effectiveTime value="358632021939" /> <value unit="mmol/L" xsi:type="PQ" value=& quot;3.5" /> <interpretationCode codeSystem="local&quot ; code="*" /> <referenceRange> < observationRange> <text>0.5-2.0</text> &lt ;/observationRange> </referenceRange> </observation& gt; </component> </organizer> </entry> <entry&gt ; <organizer moodCode="EVN" classCode="BATTERY"> <templateId root="2.16.840.1.268569.10.20.22.4.1" /> & lt;id nullFlavor="NA" /> <code codeSystem="local&quot ; code="BNP" displayName="B-TYPE NATRIURETIC PEPTIDE" /> <statusCode code="completed" /> <component> <observation moodCode="EVN" classCode="OBS"> <templateId root="2.16.840.1.842334.10.20.22.4.2" /> <id nullFlavor="NA" /> <code codeSystem=" local" code="BNP" displayName="B-TYPENATRIURETIC PEPTIDE& quot; /> <statusCode code="completed" /> & lt;effectiveTime value="734440638179" /> <value unit=& quot;pg/mL" xsi:type="PQ" value="869" /> & lt;interpretationCode codeSystem="local" code="*" /> <referenceRange> <observationRange> < text>< 100</text> </observationRange> </referenceRange> </observation> </component> & lt;/organizer> </entry> <entry> <organizer moodCode=&quot ;EVN" classCode="BATTERY"> <templateId root=" 2.16.840.1.142532.10.20.22.4.1" /> <id nullFlavor="NA&quot ; /> <code codeSystem="local" code="CBCD" displayName="CBC W/DIFF" /> <statusCode code=" completed" /> <component><observation moodCode="EVN& quot; classCode="OBS"> <templateId root=" 2.16.840.1.928079.10.20.22.4.2" /> <id nullFlavor="NA& quot; /> <code codeSystem="local" code="GR#" displayName="GRANULOCYTE #"/> <statusCode code=" completed" /> <effectiveTime value="904152237838" /> <value unit="k/cumm" xsi:type="PQ" value=& quot;16.7" /> <interpretationCode codeSystem="local& quot; code="*"/> <referenceRange> < observationRange> <text>2.0-9.0</text> & lt;/observationRange> </referenceRange> </ observation> </component> <component> < observation moodCode="EVN" classCode="OBS"> < templateId root="2.16.840.1.855775.10.20.22.4.2" /> < id nullFlavor="NA" /> <code codeSystem="local&quot ; code="LY#" displayName="LYMPHOCYTE #" /> < statusCode code="completed" /> <effectiveTime value=& quot;499073995513" /> <value unit="k/cumm" xsi:type=&quot ;PQ" value="0.4" /> <interpretationCode codeSystem ="local" code="*" /> <referenceRange> <observationRange> <text>1.0-4.0</text> </observationRange> </referenceRange> &lt ;/observation> </component> <component> < observation moodCode="EVN" classCode="OBS"> < templateId root="2.16.840.1.532199.10.20.22.4.2" /> < idnullFlavor="NA" /> <code codeSystem="local&quot ; code="LY%" displayName="LYMPHOCYTE %" /&gt ; <statusCode code="completed" /> < effectiveTime value="578158228144" /> <value unit=&quot ;%" xsi:type="PQ" value="2" /> < interpretationCode codeSystem="local" code="*" /> <referenceRange><observationRange> <text>20-30 </text> </observationRange> </referenceRange& gt; </observation> </component> <component> <observation moodCode="EVN" classCode="OBS"> <templateId root="2.16.840.1.440311.10.20.22.4.2" /> <id nullFlavor="NA" /> <code codeSystem=&quot ;local" code="MCH" displayName="MEAN CELL HGB" /> <statusCode code="completed" /> < effectiveTime value="535610170524" /> <value unit=&quot ;pg" xsi:type="PQ" value="31.7" /> < referenceRange> <observationRange> <text> 27.0-33.0</text> </observationRange> </ referenceRange> </observation> </component> < component> <observation moodCode="EVN" classCode="OBS" > <templateId root="2.16.840.1.829161.10.20.22.4.2" /& gt; <id nullFlavor="NA" /> <code codeSystem=& quot;local" code="MCHC" displayName="MEAN CELL HGB CONCENTRATION" /> <statusCode code="completed" /& gt; <effectiveTime value="562335893427" /> &lt ;value unit="g/dL" xsi:type="PQ" value="34.8" /&gt ; <referenceRange> <observationRange> <text>32.0-37.0</text> </observationRange> </referenceRange> </observation> </component&gt ; <component><observation moodCode="EVN" classCode=&quot ;OBS"> <templateId root="2.16.840.1.108016.10.20.22.4.2 " /> <id nullFlavor="NA" /> <code codeSystem="local" code="MCV" displayName="MEAN CELL VOLUME" /> <statusCode code="completed" /> <effectiveTime value="590271011553" /> <value unit="fl" xsi:type="PQ" value="91.1" /> <referenceRange> <observationRange><text>80.0- 100.0</text> </observationRange> </ referenceRange> </observation> </component> < component> <observation moodCode="EVN" classCode=" OBS"> <templateId root="2.16.840.1.928416.10.20.22.4.2& quot; /> <id nullFlavor="NA" /> <code codeSystem="local" code="MO#" displayName="MONOCYTE #& quot; /> <statusCode code="completed" /> & lt;effectiveTime value="582274705437" /> <value unit=& quot;k/cumm" xsi:type="PQ" value="0.7" /> & lt;referenceRange> <observationRange> <text& gt;0.1-1.0</text> </observationRange> </ referenceRange> </observation> </component> < component> <observation moodCode="EVN" classCode=" OBS"> <templateId root="2.16.840.1.864068.10.20.22.4.2& quot; /> <id nullFlavor="NA" /> <code codeSystem="local" code="MO%" displayName=" MONOCYTE %" /> <statusCode code="completed&quot ; /> <effectiveTime value="501776937477" /> <value unit="%" xsi:type="PQ" value="4& quot; /> <referenceRange> <observationRange> <text>4-6</text> </observationRange> </referenceRange> </observation> </component > <component> <observation moodCode="EVN" classCode="OBS"> <templateId root=" 2.16.840.1.384610.10..22.4.2" /> <id nullFlavor="NA& quot; /> <code codeSystem="local" code="MPVT&quot ; displayName="MEAN PLATELET VOLUME" /> <statusCode code="completed" /> <effectiveTime value=" 569800684685" /> <value unit="fl" xsi:type="PQ" value="10.3" /> <referenceRange> < observationRange> <text>8.5-10.9</text> < /observationRange> </referenceRange> </observation& gt;</component> <component> <observation moodCode=& quot;EVN" classCode="OBS"> <templateId root=" 2.16.840.1.299336.10.20.22.4.2" /> <id nullFlavor="NA" /> <code codeSystem="local" code="RBC" displayName="RED BLOOD CELL" /> <statusCode code=" completed" /> <effectiveTime value="395139828532" /> <value unit="m/cumm" xsi:type="PQ" value=& quot;3.60" /> <interpretationCode codeSystem="local& quot; code="*" /> <referenceRange> < observationRange> <text>4.00-6.00</text> </observationRange> </referenceRange> </ observation> </component> <component> < observation moodCode="EVN" classCode="OBS">< templateId root="2.16.840.1.222348.10.20.22.4.2" /> < id nullFlavor="NA" /> <code codeSystem="local&quot ; code="RDW" displayName="RED CELL DISTRIBUTION WIDTH" /&gt ; <statusCode code="completed" /> < effectiveTime value="185069647156" /> <value unit=&quot ;%" xsi:type="PQ" value="13.0" /> & lt;referenceRange> <observationRange> <text>11.0- 15.6</text> </observationRange> </ referenceRange> </observation> </component> < component> <observation moodCode="EVN" classCode=" OBS"> <templateId root="2.16.840.1.730395.10.20.22.4.2" / > <id nullFlavor="NA" /> <code codeSystem="local" code="WBC" displayName="WHITE BLOOD CELL" /> <statusCode code="completed" /> <effectiveTime value="598886257123" /> <value unit="k/cumm" xsi:type="PQ" value="18.2" /> <interpretationCode codeSystem="local" code="*" /& gt; <referenceRange> <observationRange> <text>5.0-10.0</text> </observationRange> </referenceRange> </observation> </component&gt ; <component> <observation moodCode="EVN" classCode="OBS"> <templateId root=" 2.16.840.1.853221.10.20.22.4.2" /> <id nullFlavor="NA& quot; /> <code codeSystem="local" code="HGBT" displayName="HEMOGLOBIN" /> <statusCode code=" completed" /> <effectiveTime value="287429195413" /> <value unit="gm/dL" xsi:type="PQ" value=& quot;11.4" /> <interpretationCode codeSystem="local& quot; code="*" /> <referenceRange> < observationRange> <text>14.0-18.0</text> </observationRange> </referenceRange> </ observation> </component> <component> < observation moodCode="EVN" classCode="OBS"> < templateId root="2.16.840.1.580125.10.20.22.4.2" /> < id nullFlavor="NA" /> <code codeSystem="local&quot ; code="HCTT" displayName="HEMATOCRIT" /> < statusCode code="completed" /> <effectiveTime value=& quot;516747322135" /> <value unit="%" xsi: type="PQ" value="32.8" /> < interpretationCode codeSystem="local" code="*" /> <referenceRange> <observationRange> < text>40.0-54.0</text> </observationRange> &lt ;/referenceRange> </observation> </component> & lt;component> <observation moodCode="EVN" classCode=&quot ;OBS"> <templateId root="2.16.840.1.564140.10.20.22.4.2 " /> <id nullFlavor="NA" /> <code codeSystem="local" code="PLTT" displayName="PLATELET COUNT" /> <statusCode code="completed" /> <effectiveTime value="318726241441" /> <value unit="k/cumm" xsi:type="PQ" value="102" /> <interpretationCode codeSystem="local" code="*" /& gt; <referenceRange> <observationRange> <text>150-400</text> </observationRange> & lt;/referenceRange> </observation> </component> & lt;/organizer> </entry> <entry> <organizer moodCode=" EVN" classCode="BATTERY"> <templateId root=" 2.16.840.1.300908.10.20.22.4.1" /> <id nullFlavor="NA&quot ; /> <code codeSystem="local" code="DIFFM" displayName="MANUAL DIFF(R)" /> <statusCode code=" completed" /> <component> <observation moodCode=& quot;EVN" classCode="OBS"> <templateId root=" 2.16.840.1.964178.10.20.22.4.2" /> <id nullFlavor="NA& quot; /> <code codeSystem="local" code="BAND&# 37;" displayName="BAND %" /> <statusCode code="completed" /> <effectiveTime value=" 085620602995" /> <value unit="%" xsi:type= "PQ" value="32" /> <interpretationCode codeSystem="local" code="*" /> < referenceRange> <observationRange> <text>0 -10</text> </observationRange> </ referenceRange> </observation> </component> < component> <observation moodCode="EVN" classCode=" OBS"> <templateId root="2.16.840.1.448543.10..22.4.2& quot; /> <id nullFlavor="NA" /> <code codeSystem="local" code="MANDIFF" displayName=" DIFFERENTIAL" /> <statusCode code="completed" /&gt ; <effectiveTime value="229772708539" /> < value unit="" xsi:type="PQ" value="MANUAL" /> <referenceRange> <observationRange> <text /> </observationRange> </ referenceRange> </observation> </component> < component> <observation moodCode="EVN" classCode=" OBS"> <templateId root="2.16.840.1.706397.10..22.4.2& quot;/> <id nullFlavor="NA" /> <code codeSystem="local"code="META%" displayName=" METAMYELOCYTE %" /> <statusCode code="completed " /> <effectiveTime value="268172445350" /> <value unit="%" xsi:type="PQ" value=" 2" /> <interpretationCode codeSystem="local" code=& quot;*" /> <referenceRange> < observationRange> <text /> </ observationRange> </referenceRange> </observation&gt ; </component> <component> <observation moodCode= "EVN" classCode="OBS"> <templateId root=" 2.16.840.1.970176.10.20.22.4.2" /> <id nullFlavor="NA& quot; /> <code codeSystem="local" code="RMORPH& quot; displayName="RBC MORPH" /> <statusCode code=&quot ;completed" /><effectiveTime value="990952184848" /> <value unit="" xsi:type="PQ" value="NOTED& quot; /> <referenceRange> <observationRange> <text /> </observationRange> </ referenceRange> </observation> </component> < component> <observation moodCode="EVN" classCode=" OBS"> <templateId root="2.16.840.1.206852.10.20.22.4.2& quot; /> <id nullFlavor="NA" /> <code codeSystem="local" code="SEG%" displayName=" SEGMENTED NEUTROPHIL%" /> <statusCode code=" completed" /> <effectiveTime value="060957393354" /> <value unit="%" xsi:type="PQ" value="60" /> <referenceRange> < observationRange> <text>50-70</text> < /observationRange> </referenceRange> </observation& gt; </component> </organizer> </entry> <entry&gt ; <organizer moodCode="EVN" classCode="BATTERY"> & lt;templateId root="2.16.840.1.360716.10.20.22.4.1" /> <id nullFlavor="NA" /> <code codeSystem="local" code= "PT" displayName="PROTHROMBIN TIME WITH INR" /> < statusCode code="completed" /> <component> < observation moodCode="EVN" classCode="OBS"> < templateId root="2.16.840.1.491831.10.20.22.4.2" /> < id nullFlavor="NA" /> <code codeSystem="local&quot ; code="INRX" displayName="INTERNATIONAL NORMAL RATIO" /&gt ; <statusCode code="completed" /> < effectiveTime value="367874807751" /> <value unit=&quot ;" xsi:type="PQ" value="1.4" /> < interpretationCode codeSystem="local" code="*" /> <referenceRange> <observationRange> <text> 0.9-1.1</text> </observationRange> </ referenceRange> </observation> </component> < component> <observation moodCode="EVN" classCode=" OBS"> <templateId root="2.16.840.1.078833.10.20.22.4.2& quot; /> <id nullFlavor="NA" /> <code codeSystem="local" code="PTPAT" displayName=" PROTHROMBIN TIME" /> <statusCode code="completed" /> <effectiveTime value="644358974677" /> & lt;value unit="sec" xsi:type="PQ" value="16.4" /& gt; <interpretationCode codeSystem="local" code="*& quot; /> <referenceRange> <observationRange> <text>10.0-12.8</text> </observationRange& gt; </referenceRange> </observation> </ component> </organizer> </entry> <entry> < organizer moodCode="EVN" classCode="BATTERY"> < templateId root="2.16.840.1.517034.10.20.22.4.1" /> <id nullFlavor="NA" /> <code codeSystem="local" code= "METABC" displayName="METABOLIC PANEL, COMPREHN" /> & lt;statusCode code="completed" /> <component> &lt ;observation moodCode="EVN" classCode="OBS"> &lt ;templateId root="2.16.840.1.155858.10.20.22.4.2" /> < id nullFlavor="NA" /> <code codeSystem="local&quot ; code="K" displayName="POTASSIUM" /> < statusCode code="completed" /> <effectiveTime value=& quot;921845703936" /> <value unit="mmol/L" xsi: type="PQ" value="3.9" /> <referenceRange> <observationRange> <text>3.5-5.3</text> </observationRange> </referenceRange> < /observation> </component> <component> < observation moodCode="EVN"classCode="OBS"> < templateId root="2.16.840.1.243226.10.20.22.4.2" /> < id nullFlavor="NA" /> <code codeSystem="local&quot ; code="eGFR" displayName="EST GFR (MDRD)" /> & lt;statusCode code="completed" /> <effectiveTime value= "175119162078" /> <value unit="mL/min" xsi: type="PQ" value="48" /> <interpretationCode codeSystem="local" code="*" /> < referenceRange> <observationRange> <text>&amp ;gt; 59</text> </observationRange> </ referenceRange> </observation> </component> < component> <observation moodCode="EVN" classCode=" OBS"> <templateId root="2.16.840.1.156337.10..22.4.2& quot; /> <id nullFlavor="NA" /> <code codeSystem="local" code="GAP" displayName="ANION GAP& quot; /> <statusCode code="completed" />< effectiveTime value="614678195788" /> <value unit=&quot ;mmol/L" xsi:type="PQ" value="12" /> < referenceRange> <observationRange> <text> 5-15</text> </observationRange> </referenceRange&gt ; </observation> </component> <component> <observation moodCode="EVN" classCode="OBS"> <templateId root="2.16.840.1.856344.10..22.4.2" /> <id nullFlavor="NA" /> <code codeSystem=" local" code="eCrCl" displayName="EST CrCl (CG)" /> <statusCode code="completed" /> < effectiveTime value="201989447583" /> <value unit=&quot ;mL/min" xsi:type="PQ" value="37" /> < interpretationCode codeSystem="local" code="*" /> <referenceRange> <observationRange> < text>> 59</text> </observationRange> & lt;/referenceRange> </observation> </component> & lt;component> <observation moodCode="EVN" classCode=&quot ;OBS"> <templateId root="2.16.840.1.425136.10.20.22.4.2 " /> <id nullFlavor="NA" /> <code codeSystem="local" code="GLU" displayName="GLUCOSE&quot ; /> <statusCode code="completed" /> < effectiveTime value="614253429937" /> <value unit=&quot ;mg/dL" xsi:type="PQ" value="109" /> < interpretationCode codeSystem="local" code="*" /> <referenceRange> <observationRange> < text>70-99</text> </observationRange> </ referenceRange> </observation> </component> < component> <observation moodCode="EVN" classCode=" OBS"> <templateId root="2.16.840.1.898204.10.20.22.4.2& quot; /> <id nullFlavor="NA" /> <code codeSystem="local" code="CA" displayName="CALCIUM&quot ; /> <statusCode code="completed" /> < effectiveTime value="306804969227" /> <value unit=&quot ;mg/dL" xsi:type="PQ" value="8.0" /> < interpretationCode codeSystem="local" code="*" /> <referenceRange> <observationRange> < text>8.5-10.1</text> </observationRange> < /referenceRange> </observation> </component> &lt ;component> <observation moodCode="EVN" classCode="OBS& quot;> <templateId root="2.16.840.1.307088.10.20.22.4.2&quot ; /> <id nullFlavor="NA" /> <code codeSystem ="local" code="BUN" displayName="BLOOD UREA NITROGEN& quot; /> <statusCode code="completed" /> & lt;effectiveTime value="346442505006" /> <value unit=& quot;mg/dL" xsi:type="PQ" value="22" /> &lt ;interpretationCode codeSystem="local" code="*" /> <referenceRange> <observationRange> < text>7-20</text> </observationRange> </ referenceRange> </observation> </component> < component> <observation moodCode="EVN" classCode=" OBS"> <templateId root="2.16.840.1.645336.10.20.22.4.2& quot; /> <id nullFlavor="NA" /> <code codeSystem="local" code="CREAT" displayName="CREATININE " /> <statusCodecode="completed" /> & lt;effectiveTime value="103159300840" /> <value unit=" mg/dL" xsi:type="PQ" value="1.4" /> < interpretationCode codeSystem="local" code="*" /> <referenceRange> <observationRange> < text>0.7-1.3</text> </observationRange> </ referenceRange> </observation> </component> < component> <observation moodCode="EVN" classCode=" OBS"> <templateId root="2.16.840.1.221997.10.20.22.4.2& quot; /> <id nullFlavor="NA" /> <code codeSystem="local" code="NA" displayName="SODIUM" /> <statusCode code="completed" /> < effectiveTime value="810884843209" /> <value unit=&quot ;mmol/L" xsi:type="PQ" value="132" /> < interpretationCode codeSystem="local" code="*" /> <referenceRange> <observationRange> < text>135-148</text> </observationRange> </ referenceRange> </observation> </component> < component> <observation moodCode="EVN" classCode=" OBS"> <templateId root="2.16.840.1.101467.10.20.22.4.2& quot; /> <id nullFlavor="NA" /> <code codeSystem ="local" code="CL" displayName="CHLORIDE" /> <statusCode code="completed" /> <effectiveTime value="752427279694" /> <value unit="mmol/L" xsi:type="PQ" value="101" /> <referenceRange& gt; <observationRange> <text>98-110</text > </observationRange> </referenceRange></ observation> </component> <component> < observation moodCode="EVN" classCode="OBS"> < templateId root="2.16.840.1.294085.10.20.22.4.2" /> < id nullFlavor="NA" /> <code codeSystem="local&quot ; code="AST" displayName="AST/SGOT" /> < statusCode code="completed" /> <effectiveTime value=& quot;203297807712" /> <value unit="Units/L" xsi:type=& quot;PQ" value="402" /> <interpretationCode codeSystem="local" code="*" /> < referenceRange> <observationRange> <text> 10-37</text> </observationRange> </ referenceRange> </observation> </component> < component> <observation moodCode="EVN" classCode=" OBS"> <templateId root="2.16.840.1.937469.10.20.22.4.2& quot; /> <idnullFlavor="NA" /> <code codeSystem="local" code="ALT" displayName="ALT/SGPT& quot; /> <statusCode code="completed" /> < effectiveTime value="023309917082" /> <value unit=&quot ;Units/L" xsi:type="PQ" value="340" /> < interpretationCode codeSystem="local" code="*" /> <referenceRange> <observationRange> < text>< 66</text> </observationRange></ referenceRange> </observation> </component> < component> <observation moodCode="EVN" classCode="OBS& quot;> <templateId root="2.16.840.1.234607.10.20.22.4.2&quot ; /> <id nullFlavor="NA" /> <code codeSystem="local" code="CO2" displayName="CARBON DIOXIDE" /> <statusCode code="completed" /> <effectiveTime value="989884619577" /> < value unit="mmol/L" xsi:type="PQ" value="19" /&gt ; <interpretationCode codeSystem="local" code="*&quot ; /> <referenceRange> <observationRange> <text>21-32</text> </observationRange> </referenceRange> </observation> </component& gt; <component> <observation moodCode="EVN" classCode="OBS"> <templateId root=" [id number]" /> <id nullFlavor="NA& quot; /> <code codeSystem="local" code="TP" displayName="TOTAL PROTEIN" /> <statusCodecode=" completed" /> <effectiveTime value="[id number]" /> <value unit="gm/dL" xsi:type="PQ" value=" 5.7" /> <interpretationCode codeSystem="local" code="*" /> <referenceRange> < observationRange> <text>6.4-8.2</text> & lt;/observationRange> </referenceRange> </ observation> </component> <component> < observation moodCode="EVN" classCode="OBS"> < templateId root="2.16.840.1.912365.10.20.22.4.2" /> < id nullFlavor="NA" /> <code codeSystem="local&quot ; code="ALB"displayName="ALBUMIN" /> < statusCode code="completed" /> <effectiveTime value=" 863664371490" /> <value unit="gm/dL" xsi:type=& quot;PQ" value="2.7" /> <interpretationCode codeSystem="local" code="*" /> < referenceRange> <observationRange> <text> 3.4-5.0</text> </observationRange> </ referenceRange> </observation> </component> < component> <observation moodCode="EVN" classCode=" OBS"> <templateId root="2.16.840.1.361645.10.20.22.4.2& quot; /> <id nullFlavor="NA" /> <code codeSystem="local" code="BILTOT" displayName="BILI TOTAL" /> <statusCode code="completed" /> <effectiveTime value="652712872043" /> <value unit="mg/dL" xsi:type="PQ" value="3.9" /> <interpretationCode codeSystem="local" code="*" /&gt ; <referenceRange> <observationRange> <text>0.0-1.0</text> </observationRange> </referenceRange> </observation> </component> <component> <observation moodCode="EVN" classCode="OBS"> <templateId root=" 2.16.840.1.070146.10.20.22.4.2" /> <id nullFlavor="NA& quot; /> <code codeSystem="local" code="ALKP&quot ; displayName="ALKALINE PHOSPHATASE TOTAL" /> < statusCode code="completed" /> <effectiveTime value=& quot;989341207594"/> <value unit="IU/L" xsi:type=& quot;PQ" value="150" /> <interpretationCode codeSystem="local" code="*" /> < referenceRange> <observationRange> <text> 45-117</text> </observationRange> </referenceRange& gt; </observation> </component> </organizer> & lt;/entry> <entry> <organizer moodCode="EVN" classCode ="BATTERY"> <templateId root=" 2.16.840.1.077719.10.20.22.4.1" /> <id nullFlavor="NA&quot ; /> <code codeSystem="local" code="PHOS" displayName="PHOSPHORUS" /> <statusCode code=" completed" /> <component> <observation moodCode=& quot;EVN" classCode="OBS"> <templateId root=" 2.16.840.1.047108.10.20.22.4.2" /> <id nullFlavor="NA" / > <code codeSystem="local" code="PHOS" displayName="PHOSPHORUS" /> <statusCode code=" completed" /> <effectiveTime value="090363756146" /> <value unit="mg/dL" xsi:type="PQ" value=& quot;2.0" /> <interpretationCode codeSystem="local&quot ; code="*" /> <referenceRange> < observationRange> <text>2.5-4.9</text> & lt;/observationRange> </referenceRange> </observation& gt; </component> </organizer> </entry> <entry&gt ; <organizer moodCode="EVN" classCode="BATTERY"> <templateId root="2.16.840.1.286592.10.20.22.4.1" /> & lt;id nullFlavor="NA" /> <code codeSystem="local&quot ; code="BILC" displayName="BILI CONJUGATED" /> < statusCode code="completed" /> <component> < observation moodCode="EVN" classCode="OBS"> < templateId root="2.16.840.1.527017.10.20.22.4.2" /> < id nullFlavor="NA" /> <code codeSystem="local&quot ; code="BILC" displayName="BILI CONJUGATED" /> & lt;statusCode code="completed" /> <effectiveTime value= "411122012831" /> <value unit="mg/dL" xsi: type="PQ" value="1.3" /> <interpretationCode codeSystem="local" code="*" /> < referenceRange> <observationRange> <text>0.0-0.3 </text> </observationRange> </referenceRange& gt; </observation> </component> </organizer> & lt;/entry> <entry> <organizer moodCode="EVN" classCode ="BATTERY"> <templateId root=" 2.16.840.1.798611.10.20.22.4.1" /> <id nullFlavor="NA&quot ; /> <code codeSystem="local" code="MAG" displayName="MAGNESIUM" /> <statusCode code="completed " /> <component> <observation moodCode="EVN& quot; classCode="OBS"> <templateId root=" 2.16.840.1.560105.10.20.22.4.2" /> <id nullFlavor="NA& quot; /> <code codeSystem="local" code="MAG" displayName="MAGNESIUM" /> <statusCode code="completed&quot ; /> <effectiveTime value="530465601695" /> <value unit="mg/dL" xsi:type="PQ" value="1.5&quot ; /> <interpretationCode codeSystem="local" code=" *" /> <referenceRange> <observationRange&gt ; <text>1.8-2.4</text> </observationRange > </referenceRange> </observation> </ component> </organizer> </entry> <entry> < organizer moodCode="EVN" classCode="BATTERY"> < templateId root="2.16.840.1.257814.10.20.22.4.1" /> <id nullFlavor="NA" /> <code codeSystem="local" code= "TROPI" displayName="TROPONIN I" /> <statusCode code="completed" /> <component> <observation moodCode="EVN" classCode="OBS"> <templateId root="2.16.840.1.038618.10.20.22.4.2" /> <id nullFlavor ="NA" /> <code codeSystem="local" code=" TROPI" displayName="TROPONIN I" /> <statusCode code="completed" /> <effectiveTime value=" 292507225131" /> <valueunit="ng/mL" xsi:type=&quot ;PQ" value="0.03" /> <referenceRange> <observationRange> <text>< 0.07</text> </observationRange> </referenceRange> </ observation> </component> </organizer> </entry> & lt;entry> <organizer moodCode="EVN" classCode="BATTERY& quot;> <templateId root="2.16.840.1.200978.10.20.22.4.1" /& gt; <id nullFlavor="NA" /> <code codeSystem=" local" code="GRAMM" displayName="GRAM STAIN" /> <statusCode code="completed" /> <component> <observation moodCode="EVN" classCode="OBS"> <templateId root="2.16.840.1.527844.10.20.22.4.2" /> <id nullFlavor="NA" /> <code codeSystem="local" code="MB" displayName="Microbiology" /> < statusCode code="completed" /> <effectiveTime value=& quot;504355772442" /> <value xsi:type="ST" value=& quot;<pre><b>GRAM STAIN - MISCELLANEOUS CULTURE& lt;/b> See Below: GALLBLADDERGRAM STAIN(F) Zac Date/ Time: 02/06/2017 12:25 Rosibel Date/Time: 02/09/2017 13 :52SOURCE: ABDOMINALSPEC DESC: GRAM STAINNO NEUTROPHILS SEENNO ORGANISMS [facility] [place], [place] [address]Blg BelowMISCELLANEOUS CULTURE(F) Zac Date/Time: 02/06/2017 12:25 Rosibel Date/Time: 02/09/2017 13:52SOURCE: ABDOMINALSPEC DESC: Organism #1 ESCHERICHIA COLIQUANTITATION .HEAVYGROWTH InterpAMPICILLIN VITEK 8 SAMPICILLIN/SULBACTAM VITEK 4 SCEFAZOLIN VITEK SCEFEPIME VITEK <=1 SCEFTRIAXONE VITEK <=1 SGENTAMICIN VITEK <=1 SPIPERACILLIN/TAZOBZCTAM VITEK <=4 STRIMETH/SULFA VITEK <=20 SOrganism # 2 KLEBSIELLA PNEUMONIAEQUANTITATION .LIGHT GROWTH InterpAMPICILLIN VITEK >=32 RAMPICILLIN/SULBACTAM VITEK 4 SCEFAZOLIN VITEK SCEFEPIME VITEK <=1 SCEFTRIAXONE VITEK <=1 SGENTAMICIN VITEK<=1 SPIPERACILLIN/TAZOBZCTAM VITEK 8 STRIMETH/SULFA VITEK <=20 [facility] [place] [address]</pre>" /> <referenceRange > <observationRange> <text /> </ observationRange> </referenceRange> </observation&gt ; </component> </organizer> </entry> <entry> <organizer moodCode="EVN" classCode="BATTERY"> <templateId root="2.16.840.1.679623.10.20.22.4.1" /> < id nullFlavor="NA" /> <code codeSystem="local" code="GRAMM" displayName="GRAM STAIN" /> < statusCode code="completed" /> <component> < observation moodCode="EVN" classCode="OBS"> < templateId root="2.16.840.1.592440.10.20.22.4.2" /> <id nullFlavor="NA" /> <code codeSystem="local" code="MB" displayName="Microbiology" /> < statusCode code="completed" /> <effectiveTime value=& quot;915708898860" /> <value xsi:type="ST" value=& quot;<pre><b>GRAM STAIN - MISCELLANEOUS CULTURE& lt;/b> See Below: GALLBLADDERGRAM STAIN(F) Zac Date/ Time: 02/06/2017 12:25 Rosibel Date/Time: 02/09/2017 13: 52SOURCE: ABDOMINALSPEC DESC: GRAM STAINNO NEUTROPHILS SEENNO [facility]ISMS [facility] [place] [id number] BelowMISCELLANEOUS CULTURE(F) Zac Date/Time: 02/06/2017 12:25 Rosibel Date/Time: 02/09/2017 13:52SOURCE: ABDOMINALSPEC DESC: Organism #1 ESCHERICHIA COLIQUANTITATION .HEAVY GROWTH InterpAMPICILLIN VITEK 8 SAMPICILLIN/SULBACTAM VITEK 4 SCEFAZOLIN VITEK SCEFEPIME VITEK <=1 SCEFTRIAXONE VITEK <=1 SGENTAMICIN VITEK <=1 SPIPERACILLIN/TAZOBZCTAM VITEK & lt;=4 STRIMETH/SULFA VITEK <=20 SOrganism #2 KLEBSIELLA PNEUMONIAEQUANTITATION .LIGHT GROWTH InterpAMPICILLIN VITEK >=32 RAMPICILLIN/SULBACTAM VITEK 4 SCEFAZOLIN VITEK SCEFEPIME VITEK <=1 SCEFTRIAXONE VITEK <=1 SGENTAMICIN VITEK <=1 SPIPERACILLIN/ TAZOBZCTAM VITEK 8 STRIMETH/SULFA VITEK <=[address] [address]</pre>" /> <referenceRange> <observationRange> & lt;text /> </observationRange> </referenceRange& gt; </observation> </component> </organizer> & lt;/entry> <entry> <organizer moodCode="EVN" classCode ="BATTERY"> <templateId root=" 2.16.840.1.848530.10.20.22.4.1" /> <id nullFlavor="NA&quot ; /> <code codeSystem="local" code="CBC" displayName="CBC" /> <statusCode code="completed&quot ; /> <component> <observation moodCode="EVN" classCode="OBS"> <templateId root=" 2.16.840.1.449213.10.20.22.4.2" /> <id nullFlavor="NA& quot; /> <code codeSystem="local" code="CBCCOM& quot; displayName="COMMENT" /> <statusCode code=" completed" /> <effectiveTime value="835354109699" /> <value unit="" xsi:type="PQ" value="REVIEWED& quot; /> <referenceRange> <observationRange> <text /> </observationRange> </ referenceRange> </observation> </component> < component> <observation moodCode="EVN" classCode=" OBS"> <templateId root="2.16.840.1.219576.10..22.4.2& quot; /> <id nullFlavor="NA" /> <code codeSystem="local" code="MCH" displayName="MEAN CELL HGB" /> <statusCode code="completed" /> <effectiveTime value="629960259621" /> <value unit ="pg" xsi:type="PQ" value="31.2" /> & lt;referenceRange> <observationRange> <text& gt;27.0-33.0</text> </observationRange> </ referenceRange> </observation> </component> < component> <observation moodCode="EVN" classCode=" OBS"> <templateId root="2.16.840.1.336947.10..22.4.2& quot; /> <id nullFlavor="NA" /> <code codeSystem="local" code="MCHC" displayName="MEAN CELL HGB CONCENTRATION" /> <statusCode code="completed" /& gt; <effectiveTime value="897983474682" /> &lt ;value unit="g/dL" xsi:type="PQ" value="33.6" /&gt ; <referenceRange> <observationRange> <text>32.0-37.0</text> </observationRange> </referenceRange> </observation> </component> <component> <observation moodCode="EVN" classCode=& quot;OBS"> <templateId root=" 2.16.840.1.694704.10.20.22.4.2" /> <id nullFlavor="NA& quot; /> <code codeSystem="local" code="MCV" displayName="MEAN CELL VOLUME" /> <statusCode code=& quot;completed" /> <effectiveTime value="250248271102& quot; /> <value unit="fl" xsi:type="PQ" value ="92.8" /> <referenceRange> < observationRange> <text>80.0-100.0</text> </observationRange> </referenceRange> </ observation> </component> <component> < observation moodCode="EVN" classCode="OBS"> < templateId root="2.16.840.1.051620.10.20.22.4.2" /> < id nullFlavor="NA" /> <code codeSystem="local&quot ; code="MPVT" displayName="MEAN PLATELET VOLUME" /> <statusCode code="completed" /> <effectiveTime value="534199252656" /> <value unit="fl" xsi:type=& quot;PQ" value="10.2" /> <referenceRange> <observationRange> <text>8.5-10.9</text> </observationRange> </referenceRange> < /observation> </component> <component> < observation moodCode="EVN" classCode="OBS"> < templateId root="2.16.840.1.604812.10.20.22.4.2" /> <id nullFlavor="NA" /> <code codeSystem="local" code="RBC" displayName="RED BLOOD CELL" /> < statusCode code="completed" /> <effectiveTime value=& quot;647841254972" /> <value unit="m/cumm" xsi: type="PQ" value="3.62" /> < interpretationCode codeSystem="local" code="*" /> <referenceRange><observationRange> <text>4.00- 6.00</text> </observationRange> </ referenceRange> </observation> </component> < component> <observation moodCode="EVN" classCode=" OBS"> <templateId root="2.16.840.1.654265.10.20.22.4.2" /& gt; <id nullFlavor="NA" /> <code codeSystem ="local" code="RDW" displayName="RED CELL DISTRIBUTION WIDTH" /> <statusCode code="completed" /> <effectiveTime value="826615550361" /> <value unit="%" xsi:type="PQ" value="13.3" /> <referenceRange> <observationRange> < text>11.0-15.6</text> </observationRange> &lt ;/referenceRange> </observation> </component> < component> <observation moodCode="EVN" classCode=" OBS"> <templateId root="2.16.840.1.512103.10.20.22.4.2&quot ; /> <id nullFlavor="NA" /> <code codeSystem="local" code="WBC" displayName="WHITE BLOOD CELL" /> <statusCode code="completed" />< effectiveTime value="115568261813" /> <value unit=&quot ;k/cumm" xsi:type="PQ" value="16.5" /> < interpretationCode codeSystem="local" code="*" /> <referenceRange> <observationRange> < text>5.0-10.0</text> </observationRange> < /referenceRange> </observation> </component> &lt ;component> <observation moodCode="EVN" classCode=" OBS"> <templateId root="2.16.840.1.586097.10.20.22.4.2& quot; /> <id nullFlavor="NA" /> <code codeSystem="local" code="HGBT" displayName="HEMOGLOBIN& quot; /> <statusCode code="completed" /> & lt;effectiveTime value="570884350682" /> <value unit=& quot;gm/dL" xsi:type="PQ" value="11.3" /> & lt;interpretationCode codeSystem="local" code="*" /> <referenceRange> <observationRange> & lt;text>14.0-18.0</text> </observationRange> </referenceRange> </observation> </component> <component> <observation moodCode="EVN" classCode=& quot;OBS"> <templateId root=" 2.16.840.1.158469.10.20.22.4.2" /> <id nullFlavor="NA& quot; /> <code codeSystem="local" code="HCTT&quot ; displayName="HEMATOCRIT" /> <statusCode code=" completed" /> <effectiveTime value="332474008559" /><value unit="%" xsi:type="PQ" value=" 33.6" /> <interpretationCode codeSystem="local" code="*" /> <referenceRange> < observationRange> <text>40.0-54.0</text></ observationRange> </referenceRange> </observation&gt ; </component> <component> <observation moodCode ="EVN" classCode="OBS"> <templateId root=& quot;2.16.840.1.680941.10.20.22.4.2" /> <id nullFlavor=&quot ;NA" /> <code codeSystem="local" code="PLTT& quot; displayName="PLATELET COUNT" /> <statusCode code= "completed" /> <effectiveTime value="691553613526& quot; /> <value unit="k/cumm" xsi:type="PQ" value="91" /> <interpretationCode codeSystem=" local" code="*" /> <referenceRange> <observationRange> <text>150-400</text> </observationRange> </referenceRange> </observation& gt; </component> </organizer> </entry> <entry&gt ; <organizer moodCode="EVN" classCode="BATTERY"> <templateId root="2.16.840.1.404722.10.20.22.4.1" /> & lt;id nullFlavor="NA" /> <code codeSystem="local&quot ; code="METABC" displayName="METABOLIC PANEL, COMPREHN" /&gt ; <statusCode code="completed" /> <component> <observation moodCode="EVN" classCode="OBS"> <templateId root="2.16.840.1.581204.10.20.22.4.2" /> & lt;id nullFlavor="NA" /> <code codeSystem="local& quot; code="K" displayName="POTASSIUM" /> < statusCode code="completed" /> <effectiveTime value=& quot;520630368053" /> <value unit="mmol/L" xsi: type="PQ" value="4.3" /> <referenceRange> <observationRange> <text>3.5-5.3</text& gt; </observationRange></referenceRange> </ observation> </component> <component> < observation moodCode="EVN" classCode="OBS"> < templateId root="2.16.840.1.280725.10.20.22.4.2" /> < id nullFlavor="NA" /> <code codeSystem="local&quot ; code="eGFR" displayName="EST GFR (MDRD)" /> & lt;statusCode code="completed" /> <effectiveTime value= "283804271344" /> <value unit="mL/min" xsi: type="PQ" value="57" /> <interpretationCode codeSystem="local" code="*" /> < referenceRange> <observationRange> <text> > 59</text> </observationRange> </ referenceRange> </observation> </component> < component> <observation moodCode="EVN" classCode=" OBS"> <templateId root="2.16.840.1.441416.10.20.22.4.2& quot; /> <id nullFlavor="NA" /> <code codeSystem="local" code="GAP" displayName="ANION GAP& quot; /> <statusCode code="completed" /> & lt;effectiveTime value="733001173141" /> <value unit=& quot;mmol/L" xsi:type="PQ" value="9" /> < referenceRange> <observationRange> <text> 5-15</text> </observationRange> </ referenceRange> </observation> </component> < component> <observation moodCode="EVN" classCode=" OBS"> <templateId root="2.16.840.1.235722.10..22.4.2& quot; /> <id nullFlavor="NA" /> <code codeSystem="local" code="eCrCl" displayName="EST CrCl ( CG)" /> <statusCode code="completed" /> <effectiveTime value="208431377566" /> <value unit="mL/min" xsi:type="PQ" value="43" /> <interpretationCode codeSystem="local" code="*" /&gt ; <referenceRange> <observationRange> <text >> 59</text> </observationRange> </ referenceRange> </observation> </component> < component> <observation moodCode="EVN" classCode=" OBS"> <templateId root="2.16.840.1.037421.10..22.4.2&quot ; /> <id nullFlavor="NA" /> <code codeSystem="local" code="GLU" displayName="GLUCOSE&quot ; /> <statusCode code="completed" /> < effectiveTime value="840560668897" /> <value unit=&quot ;mg/dL" xsi:type="PQ" value="99" /> < referenceRange> <observationRange> <text> 70-99</text> </observationRange> </ referenceRange> </observation> </component> < component> <observation moodCode="EVN" classCode=" OBS"> <templateId root="2.16.840.1.828964.10.20.22.4.2& quot; /> <id nullFlavor="NA" /> <code codeSystem="local" code="CA" displayName="CALCIUM&quot ; /> <statusCode code="completed" /> < effectiveTime value="095240137023" /> <value unit=&quot ;mg/dL" xsi:type="PQ" value="7.3" /> < interpretationCode codeSystem="local" code="*" /> &lt ;referenceRange> <observationRange> <text&gt ;8.5-10.1</text> </observationRange> </ referenceRange> </observation> </component> < component> <observation moodCode="EVN" classCode=" OBS"> <templateId root="2.16.840.1.426600.10.20.22.4.2& quot; /> <id nullFlavor="NA" /> <code codeSystem="local" code="BUN" displayName="BLOOD UREA NITROGEN" /> <statusCode code="completed" /> <effectiveTime value="000918284755" /> <value unit=& quot;mg/dL" xsi:type="PQ" value="20" /> &lt ;referenceRange> <observationRange> <text&gt ;7-20</text> </observationRange> </referenceRange&gt ; </observation> </component> <component> <observation moodCode="EVN" classCode="OBS"> <templateId root="2.16.840.1.685296.10.20.22.4.2" /> < id nullFlavor="NA" /> <code codeSystem="local&quot ; code="CREAT" displayName="CREATININE" /> < statusCode code="completed"/> <effectiveTime value=& quot;616824907502" /> <value unit="mg/dL" xsi:type ="PQ" value="1.2" /> <referenceRange> <observationRange> <text>0.7-1.3</text> </observationRange> </referenceRange> </ observation> </component> <component> < observation moodCode="EVN" classCode="OBS"> < templateId root="2.16.840.1.940723.10.20.22.4.2" /> < id nullFlavor="NA" /> <code codeSystem="local&quot ; code="NA" displayName="SODIUM" /> < statusCode code="completed" /> <effectiveTime value=& quot;230346742121" /> <value unit="mmol/L" xsi: type="PQ" value="135" /> <referenceRange> <observationRange> <text>135-148</text& gt; </observationRange> </referenceRange> </observation> </component> <component> < observation moodCode="EVN" classCode="OBS"> < templateId root="2.16.840.1.875066.10.20.22.4.2" /> < id nullFlavor="NA" /> <code codeSystem="local" code="CL" displayName="CHLORIDE" /> < statusCode code="completed" /> <effectiveTime value=& quot;494683730092" /> <value unit="mmol/L" xsi: type="PQ" value="105" /> <referenceRange> <observationRange> <text>98-110</text&gt ; </observationRange> </referenceRange> </ observation> </component> <component> < observation moodCode="EVN" classCode="OBS"> < templateId root="2.16.840.1.899946.10.20.22.4.2" /> < id nullFlavor="NA" /> <code codeSystem="local&quot ; code="AST" displayName="AST/SGOT" /> < statusCode code="completed" /> <effectiveTime value=& quot;119561050054" /> <value unit="Units/L" xsi:type= "PQ" value="257" /> <interpretationCode codeSystem=& quot;local" code="*" /> <referenceRange> <observationRange> <text>10-37</text></ observationRange> </referenceRange> </observation&gt ; </component> <component> <observation moodCode ="EVN" classCode="OBS"> <templateId root=& quot;2.16.840.1.339096.10.20.22.4.2" /> <id nullFlavor=&quot ;NA" /> <code codeSystem="local" code="ALT& quot; displayName="ALT/SGPT" /> <statusCode code=" completed" /> <effectiveTime value="379356976935" /&gt ; <value unit="Units/L" xsi:type="PQ" value=& quot;288" /> <interpretationCode codeSystem="local&quot ; code="*" /> <referenceRange> < observationRange> <text>< 66</text> </observationRange> </referenceRange> </observation& gt; </component> <component> <observation moodCode="EVN" classCode="OBS"> <templateId root="2.16.840.1.821103.10.20.22.4.2" /> <id nullFlavor ="NA" /> <code codeSystem="local" code=" CO2" displayName="CARBON DIOXIDE" /> <statusCode code="completed" /> <effectiveTime value=" 135479695667" /> <value unit="mmol/L" xsi:type=& quot;PQ" value="21" /> <referenceRange> <observationRange> <text>21-32</text> & lt;/observationRange> </referenceRange> </ observation> </component> <component> < observation moodCode="EVN" classCode="OBS"> < templateId root="2.16.840.1.727898.10.20.22.4.2" /> < id nullFlavor="NA" /> <code codeSystem="local&quot ; code="TP" displayName="TOTAL PROTEIN" /> < statusCode code="completed" /> <effectiveTime value=& quot;681670851278" /> <value unit="gm/dL" xsi:type ="PQ" value="5.6" /> <interpretationCode codeSystem="local" code="*" /> <referenceRange> <observationRange> <text>6.4-8.2</text> </observationRange> </referenceRange> & lt;/observation> </component> <component> < observation moodCode="EVN" classCode="OBS"> < templateId root="2.16.840.1.705088.10.20.22.4.2" /> < id nullFlavor="NA" /> <code codeSystem="local&quot ; code="ALB" displayName="ALBUMIN" /> < statusCode code="completed" /> <effectiveTime value=& quot;842926981983" /> <value unit="gm/dL" xsi:type ="PQ" value="2.5" /> < interpretationCodecodeSystem="local" code="*" /> <referenceRange> <observationRange> < text>3.4-5.0</text> </observationRange> </ referenceRange> </observation> </component> < component> <observation moodCode="EVN" classCode=" OBS"> <templateId root="2.16.840.1.492263.10.20.22.4.2& quot; /> <id nullFlavor="NA" /> <code codeSystem="local" code="BILTOT" displayName="BILI TOTAL" /> <statusCode code="completed" /> <effectiveTime value="993644578369" /> <value unit="mg/dL" xsi:type="PQ" value="3.7" /> <interpretationCode codeSystem="local" code="*" /&gt ; <referenceRange> <observationRange> <text& gt;0.0-1.0</text> </observationRange> </ referenceRange> </observation> </component> < component> <observationmoodCode="EVN" classCode="OBS "> <templateId root="2.16.840.1.432573.10.20.22.4.2& quot; /> <id nullFlavor="NA" /> <code codeSystem="local" code="ALKP" displayName="ALKALINE PHOSPHATASE TOTAL" /> <statusCode code="completed&quot ; /> <effectiveTime value="087200833018" /> <value unit="IU/L" xsi:type="PQ" value="139" /> <interpretationCode codeSystem="local" code="*& quot; /> <referenceRange> <observationRange> <text>45-117</text> </observationRange& gt; </referenceRange> </observation> </ component> </organizer> </entry> <entry> < organizer moodCode="EVN" classCode="BATTERY"> < templateId root="2.16.840.1.136945.10.20.22.4.1" /> <id nullFlavor="NA" /> <code codeSystem="local" code= "CBC" displayName="CBC" /> <statusCode code=&quot ;completed" /> <component> <observation moodCode=& quot;EVN" classCode="OBS"> <templateId root=" 2.16.840.1.915064.10.20.22.4.2" /> <id nullFlavor="NA& quot; /> <code codeSystem="local" code="CBCCOM& quot; displayName="COMMENT" /> <statusCode code=" completed" /> <effectiveTime value="541358908622" /> <value unit="" xsi:type="PQ" value=" REVIEWED" /> <referenceRange> < observationRange> <text /> </ observationRange> </referenceRange> </observation&gt ; </component> <component> <observation moodCode ="EVN" classCode="OBS"> <templateId root=& quot;[id number]" /> <id nullFlavor=&quot ;NA" /> <code codeSystem="local" code="[facility]& quot; displayName="MEAN CELL HGB" /> <statusCode code=& quot;completed" /> <effectiveTime value="[id number]& quot; /> <value unit="pg" xsi:type="PQ" value ="31.2" /> <referenceRange> < observationRange> <text>27.0-33.0</text> </observationRange> </referenceRange> </ observation> </component> <component> <observation moodCode="EVN" classCode="OBS"> <templateId root="[id number]" /> <id nullFlavor ="NA" /> <code codeSystem="local" code="[facility]& quot; displayName="MEAN CELL HGB CONCENTRATION" /> < statusCode code="completed" /> <effectiveTime value=& quot;[id number]" /> <value unit="g/dL" xsi:type= "PQ" value="33.6" /> <referenceRange> <observationRange> <text>32.0-37.0</text&gt ; </observationRange> </referenceRange> & lt;/observation> </component> <component>< observation moodCode="EVN" classCode="OBS"> < templateId root="2.16.840.1.101308.10.20.22.4.2" /> < id nullFlavor="NA" /> <code codeSystem="local" code ="MCV" displayName="MEAN CELL VOLUME" /> < statusCode code="completed" /> <effectiveTime value=& quot;161994025956" /> <value unit="fl" xsi:type=& quot;PQ" value="92.8" /> <referenceRange> <observationRange><text>80.0-100.0</text> & lt;/observationRange> </referenceRange> </ observation> </component> <component> < observation moodCode="EVN" classCode="OBS"> < templateId root="2.16.840.1.590891.10.20.22.4.2" /> < id nullFlavor="NA" /> <code codeSystem="local&quot ; code="MPVT" displayName="MEAN PLATELET VOLUME" /> <statusCode code="completed" /> <effectiveTime value="859564023151" /> <value unit="fl" xsi: type="PQ" value="10.2" /> <referenceRange&gt ; <observationRange> <text>8.5-10.9</text > </observationRange> </referenceRange> </ observation> </component> <component> < observation moodCode="EVN" classCode="OBS"> < templateId root="2.16.840.1.667423.10..22.4.2" /> < id nullFlavor="NA" /> <code codeSystem="local&quot ; code="RBC" displayName="RED BLOOD CELL" /> &lt ;statusCode code="completed" /> <effectiveTime value=& quot;740295284225" /> <value unit="m/cumm" xsi: type="PQ" value="3.62" /> <interpretationCode codeSystem="local" code="*" /> < referenceRange> <observationRange> <text> 4.00-6.00</text> </observationRange> </ referenceRange> </observation> </component> < component> <observation moodCode="EVN" classCode=" OBS"> <templateId root="2.16.840.1.764352.10.20.22.4.2& quot; /> <id nullFlavor="NA" /> <code codeSystem="local" code="RDW" displayName="RED CELL DISTRIBUTION WIDTH" /> <statusCode code="completed&quot ; /> <effectiveTime value="830984567342" /> <value unit="%" xsi:type="PQ" value="13.3& quot; /> <referenceRange> <observationRange> <text>11.0-15.6</text> </observationRange > </referenceRange> </observation> </ component> <component> <observation moodCode="EVN& quot; classCode="OBS"> <templateId root=" 2.16.840.1.505257.10.20.22.4.2" /> <id nullFlavor="NA&quot ; /> <code codeSystem="local" code="WBC" displayName="WHITE BLOOD CELL" /> <statusCode code=& quot;completed" /> <effectiveTime value="765170114310& quot; /> <value unit="k/cumm" xsi:type="PQ" value="16.5" /> <interpretationCode codeSystem=" local" code="*" /> <referenceRange> < observationRange> <text>5.0-10.0</text> & lt;/observationRange> </referenceRange> </ observation> </component> <component> < observation moodCode="EVN" classCode="OBS"> < templateId root="2.16.840.1.427373.10.20.22.4.2" /> < id nullFlavor="NA" /> <code codeSystem="local&quot ; code="HGBT" displayName="HEMOGLOBIN" /> < statusCode code="completed" /> <effectiveTime value=& quot;615270743020" /> <value unit="gm/dL" xsi:type ="PQ" value="11.3" /> <interpretationCode codeSystem="local" code="*" /> < referenceRange> <observationRange> <text>14.0- 18.0</text> </observationRange> </ referenceRange> </observation> </component> < component> <observation moodCode="EVN" classCode=" OBS"> <templateId root="2.16.840.1.088165.10.20.22.4.2& quot; /> <id nullFlavor="NA" /> <code codeSystem="local" code="HCTT" displayName="HEMATOCRIT& quot; /> <statusCode code="completed" /> < effectiveTime value="082357455434" /> <value unit=&quot ;%" xsi:type="PQ" value="33.6" /> & lt;interpretationCode codeSystem="local" code="*" /> <referenceRange> <observationRange> < text>40.0-54.0</text> </observationRange> &lt ;/referenceRange> </observation> </component> & lt;component> <observation moodCode="EVN" classCode=&quot ;OBS"> <templateId root="2.16.840.1.833249.10.20.22.4.2 " /> <id nullFlavor="NA" /> <code codeSystem="local" code="PLTT" displayName="PLATELET COUNT" /> <statusCode code="completed" /> <effectiveTime value="592089020376" /> <value unit=&quot ;k/cumm" xsi:type="PQ" value="91" /> < interpretationCode codeSystem="local" code="*" /> <referenceRange> <observationRange> < text>150-400</text> </observationRange> </ referenceRange> </observation> </component> </ organizer> </entry> <entry> <organizer moodCode="EVN " classCode="BATTERY"> <templateId root=" 2.16.840.1.407402.10.20.22.4.1" /> <id nullFlavor="NA&quot ; /> <code codeSystem="local" code="METABC" displayName="METABOLIC PANEL, COMPREHN" /> <statusCode code ="completed" /> <component> <observation moodCode="EVN" classCode="OBS"> <templateId root="2.16.840.1.532905.10.20.22.4.2" /> <id nullFlavor= "NA" /> <code codeSystem="local" code="K " displayName="POTASSIUM" /> <statusCode code=& quot;completed" /> <effectiveTime value="972511204711& quot; /> <value unit="mmol/L" xsi:type="PQ" value="4.3" /> <referenceRange> < observationRange> <text>3.5-5.3</text> & lt;/observationRange> </referenceRange> </ observation> </component> <component> < observation moodCode="EVN" classCode="OBS"> < templateId root="2.16.840.1.073698.10.20.22.4.2" /> < id nullFlavor="NA" /> <code codeSystem="local&quot ; code="eGFR" displayName="EST GFR (MDRD)" /> & lt;statusCode code="completed" /> <effectiveTime value=" 368514029741" /> <value unit="mL/min"xsi:type=& quot;PQ" value="57" /> <interpretationCode codeSystem="local" code="*" /> < referenceRange> <observationRange> <text> > 59</text> </observationRange> </ referenceRange> </observation> </component> < component> <observation moodCode="EVN" classCode="OBS& quot;> <templateId root="2.16.840.1.374812.10.20.22.4.2&quot ; /> <id nullFlavor="NA" /> <code codeSystem="local" code="GAP" displayName="ANION GAP& quot; /> <statusCode code="completed" /> & lt;effectiveTime value="432737742913" /> <value unit=& quot;mmol/L" xsi:type="PQ" value="9" /> &lt ;referenceRange> <observationRange> <text&gt ;5-15</text> </observationRange> </ referenceRange> </observation> </component> < component> <observation moodCode="EVN" classCode=" OBS"> <templateId root="2.16.840.1.761193.10.20.22.4.2& quot; /> <id nullFlavor="NA" /> <code codeSystem="local" code="eCrCl" displayName="EST CrCl ( CG)" /> <statusCode code="completed" /> <effectiveTime value="654291992350" /> <value unit="mL/min" xsi:type="PQ" value="43" /> <interpretationCode codeSystem="local" code="*" /> <referenceRange> <observationRange> <text>> 59</text> </observationRange> </referenceRange> </observation> </component> <component> <observation moodCode="EVN" classCode=& quot;OBS"> <templateId root=" 2.16.840.1.271741.10.20.22.4.2" /> <id nullFlavor="NA&quot ; /> <code codeSystem="local" code="GLU" displayName="GLUCOSE" /> <statusCode code=" completed" /> <effectiveTime value="967723325289" /> <value unit="mg/dL" xsi:type="PQ" value=& quot;99" /> <referenceRange> <observationRange&gt ; <text>70-99</text> </observationRange& gt; </referenceRange> </observation> </ component> <component> <observation moodCode="EVN& quot; classCode="OBS"> <templateId root=" 2.16.840.1.127235.10.20.22.4.2" /> <id nullFlavor="NA& quot; /> <code codeSystem="local" code="CA" displayName="CALCIUM" /> <statusCode code=" completed" /> <effectiveTime value="068587446445" /> <value unit="mg/dL" xsi:type="PQ" value=& quot;7.3" /> <interpretationCode codeSystem="local&quot ; code="*" /> <referenceRange> < observationRange> <text>8.5-10.1</text> </ observationRange> </referenceRange> </observation&gt ; </component> <component> <observation moodCode ="EVN" classCode="OBS"> <templateId root=& quot;2.16.840.1.677382.10.20.22.4.2" /> <id nullFlavor=&quot ;NA" /> <code codeSystem="local" code="BUN& quot; displayName="BLOOD UREA NITROGEN" /> <statusCode code ="completed" /> <effectiveTime value="505633206779 " /> <value unit="mg/dL" xsi:type="PQ" value="20" /> <referenceRange> < observationRange> <text>7-20</text> </ observationRange> </referenceRange> </observation&gt ; </component> <component> <observation moodCode ="EVN" classCode="OBS"> <templateId root=& quot;2.16.840.1.227814.10..22.4.2" /> <id nullFlavor=&quot ;NA" /> <code codeSystem="local" code="CREAT& quot; displayName="CREATININE" /> <statusCode code=& quot;completed" /> <effectiveTime value="397882898130& quot; /> <value unit="mg/dL" xsi:type="PQ" value=& quot;1.2" /> <referenceRange> < observationRange> <text>0.7-1.3</text> &lt ;/observationRange> </referenceRange> </observation& gt; </component> <component> <observation moodCode=& quot;EVN" classCode="OBS"> <templateId root=" 2.16.840.1.771692.10..22.4.2" /> <id nullFlavor="NA&quot ; /> <code codeSystem="local" code="NA" displayName="SODIUM" /> <statusCode code=" completed" /> <effectiveTime value="763587470220" /> <value unit="mmol/L" xsi:type="PQ" value=& quot;135" /> <referenceRange> <observationRange&gt ; <text>135-148</text> </observationRange > </referenceRange> </observation> </ component> <component> <observation moodCode="EVN" classCode="OBS"> <templateId root=" 2.16.840.1.572879.10.20.22.4.2" /> <id nullFlavor="NA& quot; /> <code codeSystem="local" code="CL" displayName="CHLORIDE" /> <statusCode code=" completed" /> <effectiveTime value="088437241191" /> <value unit="mmol/L" xsi:type="PQ" value=& quot;105" /> <referenceRange> < observationRange> <text>98-110</text> &lt ;/observationRange> </referenceRange> </observation& gt; </component> <component> <observation moodCode=& quot;EVN" classCode="OBS"> <templateId root=" 2.16.840.1.534517.10.20.22.4.2" /> <id nullFlavor="NA& quot; /> <code codeSystem="local" code="AST" displayName="AST/SGOT" /> <statusCode code=" completed" /> <effectiveTime value="815225831833" /> <value unit="Units/L" xsi:type="PQ" value= "257" /> <interpretationCode codeSystem="local& quot; code="*" /> <referenceRange> < observationRange> <text>10-37</text> < /observationRange> </referenceRange> </observation& gt; </component> <component> <observation moodCode="EVN" classCode="OBS"> <templateId root="2.16.840.1.874870.10.20.22.4.2" /> <id nullFlavor ="NA" /> <code codeSystem="local" code=" ALT" displayName="ALT/SGPT" /> <statusCode code=& quot;completed" /> <effectiveTime value="082426832131& quot; /> <value unit="Units/L" xsi:type="PQ" value="288" /> <interpretationCode codeSystem=" local" code="*" /> <referenceRange> < observationRange> <text>< 66</text> </observationRange> </referenceRange> </ observation> </component> <component> < observation moodCode="EVN" classCode="OBS"> < templateId root="2.16.840.1.516906.10.20.22.4.2" /> < id nullFlavor="NA" /> <code codeSystem="local&quot ; code="CO2" displayName="CARBON DIOXIDE" /> &lt ;statusCode code="completed" /> <effectiveTime value=" 390027793653" /> <value unit="mmol/L" xsi:type=& quot;PQ" value="21" /> <referenceRange> <observationRange> <text>21-32</text> </observationRange> </referenceRange> </ observation> </component> <component> < observation moodCode="EVN" classCode="OBS"> < templateId root="2.16.840.1.988331.10.20.22.4.2" /> < id nullFlavor="NA" /> <code codeSystem="local&quot ; code="TP" displayName="TOTAL PROTEIN" /> < statusCode code="completed" /> <effectiveTime value=& quot;002761991410" /> <value unit="gm/dL" xsi:type ="PQ" value="5.6" /> <interpretationCode codeSystem="local" code="*" /> < referenceRange> <observationRange> <text> 6.4-8.2</text> </observationRange> </ referenceRange> </observation> </component> < component> <observation moodCode="EVN" classCode=" OBS"> <templateId root="2.16.840.1.397833.10.20.22.4.2& quot; /> <id nullFlavor="NA" /> <code codeSystem="local" code="ALB" displayName="ALBUMIN&quot ; /> <statusCode code="completed" /> < effectiveTime value="833342808953" /> <value unit=" gm/dL" xsi:type="PQ" value="2.5" /> < interpretationCode codeSystem="local" code="*" /> <referenceRange> <observationRange> < text>3.4-5.0</text> </observationRange> </ referenceRange> </observation> </component> < component> <observation moodCode="EVN" classCode=" OBS"> <templateId root="2.16.840.1.280752.10.20.22.4.2& quot; /> <id nullFlavor="NA" /> <code codeSystem="local" code="BILTOT" displayName="BILI TOTAL" /> <statusCode code="completed" /> <effectiveTime value="696998191972" /> <value unit="mg/dL" xsi:type="PQ" value="3.7" /> <interpretationCode codeSystem="local" code="*" /&gt ; <referenceRange> <observationRange> <text>0.0-1.0</text> </observationRange> &lt ;/referenceRange> </observation> </component> & lt;component> <observation moodCode="EVN" classCode=&quot ;OBS"> <templateId root="2.16.840.1.325543.10.20.22.4.2 " /> <id nullFlavor="NA" /> <code codeSystem="local" code="ALKP" displayName="ALKALINE PHOSPHATASE TOTAL" /> <statusCode code="completed&quot ; /> <effectiveTime value="911197290498" /> <value unit="IU/L" xsi:type="PQ" value="139" /> <interpretationCode codeSystem="local" code="*& quot; /> <referenceRange> <observationRange> <text>45-117</text> </observationRange> </referenceRange> </observation> </component&gt ; </organizer> </entry> <entry> <organizer moodCode ="EVN" classCode="BATTERY"> <templateId root=& quot;2.16.840.1.705294.10.20.22.4.1" /> <id nullFlavor="NA& quot; /> <code codeSystem="local" code="CBC" displayName="CBC" /> <statusCode code="completed" /> <component> <observation moodCode="EVN" classCode="OBS"> <templateId root=" 2.16.840.1.382090.10.20.22.4.2" /> <id nullFlavor="NA& quot; /> <code codeSystem="local" code="MCH" displayName="MEAN CELL HGB" /> <statusCode code=" completed" /> <effectiveTime value="771612469161" /> <value unit="pg" xsi:type="PQ" value=&quot ;31.7" /> <referenceRange> <observationRange& gt; <text>27.0-33.0</text> </ observationRange> </referenceRange> </observation&gt ; </component> <component> <observation moodCode ="EVN" classCode="OBS"> <templateId root=& quot;2.16.840.1.124518.10.20.22.4.2" /> <id nullFlavor=&quot ;NA" /> <code codeSystem="local" code="MCHC& quot; displayName="MEAN CELL HGB CONCENTRATION" /> < statusCode code="completed" /> <effectiveTime value=& quot;129634701529" /> <value unit="g/dL" xsi:type= "PQ" value="34.6" /> <referenceRange> <observationRange> <text>32.0-37.0</text> </observationRange> </referenceRange> < /observation> </component> <component> < observation moodCode="EVN" classCode="OBS"> < templateId root="2.16.840.1.536609.10.20.22.4.2" /> < id nullFlavor="NA" /> <code codeSystem="local&quot ; code="MCV" displayName="MEAN CELL VOLUME" /> & lt;statusCode code="completed" /> <effectiveTime value= "715550459329" /> <value unit="fl" xsi:type="PQ& quot; value="91.6" /> <referenceRange> & lt;observationRange> <text>80.0-100.0</text> </observationRange> </referenceRange> </ observation> </component> <component> < observation moodCode="EVN" classCode="OBS"> < templateId root="2.16.840.1.627494.10.20.22.4.2" /> <id nullFlavor="NA" /> <code codeSystem="local" code="MPVT" displayName="MEAN PLATELET VOLUME" /> <statusCode code="completed" /> <effectiveTime value="609467939846" /> <value unit="fl" xsi: type="PQ" value="11.0" /> < interpretationCode codeSystem="local" code="*" /> <referenceRange> <observationRange> <text>8.5 -10.9</text> </observationRange> </ referenceRange> </observation> </component> < component> <observation moodCode="EVN" classCode=" OBS"> <templateId root="2.16.840.1.286542.10.20.22.4.2" / > <id nullFlavor="NA" /> <code codeSystem="local" code="RBC" displayName="RED BLOOD CELL" /> <statusCode code="completed" /> <effectiveTime value="008399000077" /> <value unit="m/cumm" xsi:type="PQ" value="3.34" /> <interpretationCode codeSystem="local" code="*" /& gt; <referenceRange> <observationRange> <text>4.00-6.00</text> </observationRange> </referenceRange> </observation> </component&gt ; <component> <observation moodCode="EVN" classCode="OBS"> <templateId root=" 2.16.840.1.844685.10.20.22.4.2" /> <id nullFlavor="NA& quot; /><code codeSystem="local" code="RDW" displayName="RED CELL DISTRIBUTION WIDTH" /> < statusCode code="completed" /> <effectiveTime value=& quot;690112636956" /> <value unit="%" xsi: type="PQ" value="13.6" /> <referenceRange&gt ; <observationRange> <text>11.0-15.6</ text> </observationRange> </referenceRange> </observation> </component> <component> <observation moodCode="EVN" classCode="OBS"> <templateId root="2.16.840.1.065824.10.20.22.4.2" /> <id nullFlavor="NA" /> <code codeSystem="local&quot ; code="WBC" displayName="WHITE BLOOD CELL" /> & lt;statusCode code="completed" /> <effectiveTime value= "326679244690" /> <value unit="k/cumm" xsi: type="PQ" value="12.4" /> < interpretationCode codeSystem="local" code="*" /> <referenceRange> <observationRange> < text>5.0-10.0</text> </observationRange> < /referenceRange> </observation> </component> &lt ;component> <observation moodCode="EVN" classCode=" OBS"> <templateId root="2.16.840.1.550553.10.20.22.4.2& quot; /> <id nullFlavor="NA" /> <code codeSystem="local" code="HGBT" displayName="HEMOGLOBIN& quot; /> <statusCodecode="completed" /> &lt ;effectiveTime value="349022310266" /> <value unit="gm/ dL" xsi:type="PQ" value="10.6" /> < interpretationCode codeSystem="local" code="*" /> <referenceRange> <observationRange> < text>14.0-18.0</text> </observationRange> </ referenceRange> </observation> </component> < component> <observation moodCode="EVN" classCode=" OBS"> <templateId root="2.16.840.1.004517.10.20.22.4.2& quot; /> <id nullFlavor="NA" /> <code codeSystem="local" code="HCTT" displayName="HEMATOCRIT& quot; /> <statusCode code="completed" /> & lt;effectiveTime value="670777166935" /> <value unit=& quot;%" xsi:type="PQ" value="30.6" /> <interpretationCode codeSystem="local" code="*" /&gt ; <referenceRange> <observationRange> <text>40.0-54.0</text> </observationRange> </referenceRange> </observation> </component> <component> <observation moodCode="EVN" classCode="OBS"> <templateId root=" 2.16.840.1.274319.10..22.4.2" /> <id nullFlavor="NA& quot; /> <code codeSystem="local" code="PLTT&quot ; displayName="PLATELET COUNT" /> <statusCode code=& quot;completed" /> <effectiveTime value="288100267180& quot; /> <value unit="k/cumm" xsi:type="PQ" value="90" /> <interpretationCode codeSystem=" local" code="*" /> <referenceRange> <observationRange> <text>150-400</text> </observationRange> </referenceRange> </ observation> </component> </organizer> </entry> & lt;entry> <organizer moodCode="EVN" classCode="BATTERY& quot;> <templateIdroot="2.16.840.1.760688.10.20.22.4.1" /& gt; <id nullFlavor="NA" /> <code codeSystem="local " code="METABC" displayName="METABOLIC PANEL, COMPREHN&quot ; /> <statusCode code="completed" /> <component& gt; <observation moodCode="EVN" classCode="OBS"> <templateId root="2.16.840.1.404563.10.20.22.4.2" /> <id nullFlavor="NA" /> <code codeSystem="local& quot; code="K" displayName="POTASSIUM" /> < statusCode code="completed" /> <effectiveTime value=& quot;881187522621" /> <value unit="mmol/L" xsi: type="PQ" value="4.0" /> <referenceRange> <observationRange> <text>3.5-5.3</text& gt; </observationRange> </referenceRange> &lt ;/observation> </component> <component> < observation moodCode="EVN" classCode="OBS"> < templateId root="2.16.840.1.079674.10.20.22.4.2" /> < id nullFlavor="NA" /> <code codeSystem="local&quot ; code="eGFR" displayName="EST GFR (MDRD)" /> & lt;statusCode code="completed" /> <effectiveTime value= "584232997723"/> <value unit="mL/min" xsi: type="PQ" value="> 60" /> < referenceRange> <observationRange> <text> > 59</text> </observationRange> </ referenceRange> </observation> </component> < component> <observation moodCode="EVN" classCode=" OBS"> <templateId root="2.16.840.1.235422.10.20.22.4.2& quot; /> <id nullFlavor="NA" /> <code codeSystem="local" code="GAP" displayName="ANION GAP& quot; /> <statusCode code="completed" /> & lt;effectiveTime value="448170932308" /> <value unit=" mmol/L" xsi:type="PQ" value="11" /> < referenceRange> <observationRange> <text> 5-15</text> </observationRange> </ referenceRange> </observation> </component> < component> <observation moodCode="EVN" classCode=" OBS"> <templateId root="216.840.1.310573.10..22.4.2& quot; /> <id nullFlavor="NA" /> <code codeSystem="local" code="eCrCl" displayName="EST CrCl ( CG)" /> <statusCode code="completed" /> <effectiveTime value="867014565394" /> <value unit="mL/min" xsi:type="PQ" value="57" /> <interpretationCode codeSystem="local" code="*" /&gt ; <referenceRange> <observationRange> <text>> 59</text> </observationRange> </referenceRange> </observation> </component& gt; <component> <observation moodCode="EVN" classCode="OBS"> <templateId root=" 2.16.840.1.936111.10.20.22.4.2" /> <id nullFlavor="NA& quot; /> <code codeSystem="local" code="GLU" displayName="GLUCOSE" /> <statusCode code=" completed" /> <effectiveTime value="493160999098" /> <value unit="mg/dL" xsi:type="PQ" value=& quot;91" /> <referenceRange> < observationRange> <text>70-99</text> < /observationRange> </referenceRange> </observation& gt; </component> <component> <observation moodCode="EVN" classCode="OBS"> <templateId root="2.16.840.1.636245.10.20.22.4.2" /> <id nullFlavor ="NA" /> <code codeSystem="local" code="CA" displayName="CALCIUM" /> <statusCode code="completed& quot; /> <effectiveTime value="144872482079" /> <value unit="mg/dL" xsi:type="PQ" value="7.2& quot; /> <interpretationCode codeSystem="local" code=& quot;*" /> <referenceRange> <observationRange> <text>8.5-10.1</text> </observationRange > </referenceRange> </observation> </ component> <component> <observation moodCode="EVN& quot; classCode="OBS"> <templateId root=" 2.16.840.1.054311.10..22.4.2"/> <id nullFlavor="NA& quot; /> <code codeSystem="local"code="BUN" displayName="BLOOD UREA NITROGEN" /> <statusCode code=& quot;completed" /> <effectiveTime value="810546452330& quot; /> <value unit="mg/dL" xsi:type="PQ" value="21" /> <interpretationCode codeSystem=" local" code="*" /> <referenceRange> & lt;observationRange> <text>7-20</text> & lt;/observationRange> </referenceRange> </ observation> </component> <component> < observation moodCode="EVN" classCode="OBS"> < templateId root="2.16.840.1.903131.10.20.22.4.2" /> < id nullFlavor="NA" /> <code codeSystem="local&quot ; code="CREAT" displayName="CREATININE" /> < statusCode code="completed" /> <effectiveTime value=& quot;564039415971" /> <value unit="mg/dL" xsi:type ="PQ" value="0.9" /> <referenceRange> <observationRange> <text>0.7-1.3</text> </observationRange> </referenceRange> </ observation> </component> <component> < observation moodCode="EVN" classCode="OBS"> < templateId root="2.16.840.1.133233.10.20.22.4.2" /> < id nullFlavor="NA" /> <code codeSystem="local&quot ; code="NA" displayName="SODIUM" /> < statusCode code="completed" /> <effectiveTime value=& quot;970965395151" /> <value unit="mmol/L" xsi: type="PQ" value="134" /> <interpretationCode codeSystem="local" code="*"/> <referenceRange > <observationRange> <text>135-148</ text> </observationRange> </referenceRange> </observation> </component> <component> <observation moodCode="EVN" classCode="OBS"> <templateId root="2.16.840.1.814304.10..22.4.2" /> <id nullFlavor="NA" /> <code codeSystem=" local" code="CL" displayName="CHLORIDE" /> <statusCode code="completed" /> <effectiveTime value ="498216149024" /> <value unit="mmol/L" xsi: type="PQ" value="105" /> <referenceRange> <observationRange> <text>98-110</text&gt ; </observationRange> </referenceRange> </ observation> </component> <component> < observation moodCode="EVN" classCode="OBS"> < templateId root="2.16.840.1.017712.10.20.22.4.2" /> <id nullFlavor="NA" /> <code codeSystem="local" code="AST" displayName="AST/SGOT" /> < statusCode code="completed" /> <effectiveTime value=& quot;908112689474" /> <value unit="Units/L" xsi: type="PQ" value="181" /> <interpretationCode codeSystem="local" code="*" /> < referenceRange> <observationRange> <text> 10-37</text> </observationRange> </referenceRange&gt ; </observation> </component> <component> <observation moodCode="EVN" classCode="OBS"> <templateId root="2.16.840.1.807439.10.20.22.4.2" /> <id nullFlavor="NA" /> <code codeSystem=" local" code="ALT" displayName="ALT/SGPT" /> <statusCode code="completed" /> <effectiveTime value="245945026473" /> <value unit="Units/L&quot ; xsi:type="PQ" value="224" /> < interpretationCode codeSystem="local" code="*" /> <referenceRange> <observationRange> < text>< 66</text> </observationRange> & lt;/referenceRange> </observation> </component> < component> <observation moodCode="EVN" classCode=" OBS"> <templateId root="2..840.1.190108.10.20.22.4.2& quot; /> <id nullFlavor="NA" /> <code codeSystem="local" code="CO2" displayName="CARBON DIOXIDE" /> <statusCode code="completed" /> <effectiveTime value="188769073706" /> < value unit="mmol/L" xsi:type="PQ" value="18" /&gt ; <interpretationCode codeSystem="local" code="*" /& gt; <referenceRange> <observationRange> <text>21-32</text> </observationRange> </ referenceRange> </observation> </component> < component> <observation moodCode="EVN" classCode=" OBS"> <templateId root="2.16.840.1.557444.10.20.22.4.2& quot; /> <id nullFlavor="NA" /> <code codeSystem="local" code="TP" displayName="TOTAL PROTEIN " /> <statusCode code="completed" /> & lt;effectiveTime value="234976522988" /> <value unit=& quot;gm/dL" xsi:type="PQ" value="5.3" /> & lt;interpretationCode codeSystem="local" code="*" /> <referenceRange> <observationRange> & lt;text>6.4-8.2</text> </observationRange> </ referenceRange> </observation> </component> < component> <observation moodCode="EVN" classCode=" OBS"> <templateId root="2.16.840.1.524708.10.20.22.4.2& quot; /> <id nullFlavor="NA" /> <code codeSystem="local" code="ALB" displayName="ALBUMIN&quot ; /> <statusCode code="completed" /> < effectiveTime value="913720407136" /> <value unit=&quot ;gm/dL" xsi:type="PQ" value="2.3" /> < interpretationCode codeSystem="local" code="*" /> <referenceRange> <observationRange> < text>3.4-5.0</text> </observationRange> </ referenceRange> </observation> </component> < component> <observation moodCode="EVN" classCode=" OBS"> <templateId root="2.16.840.1.266244.10.20.22.4.2& quot; /> <id nullFlavor="NA" /> <code codeSystem="local" code="BILTOT" displayName="BILI TOTAL" /> <statusCodecode="completed" /> <effectiveTime value="319150402532" /> <value unit=& quot;mg/dL" xsi:type="PQ" value="2.6" /> & lt;interpretationCode codeSystem="local" code="*" /> <referenceRange> <observationRange> & lt;text>0.0-1.0</text> </observationRange> & lt;/referenceRange> </observation> </component> <component> <observation moodCode="EVN" classCode=& quot;OBS"> <templateId root=" 2.16.840.1.253502.10.20.22.4.2" /> <id nullFlavor="NA& quot; /> <code codeSystem="local" code="ALKP&quot ; displayName="ALKALINE PHOSPHATASE TOTAL" /> < statusCode code="completed" /> <effectiveTime value=& quot;479418412276" /> <value unit="IU/L" xsi:type= "PQ" value="120" /> <interpretationCode codeSystem="local" code="*" /> < referenceRange> <observationRange> <text> 45-117</text> </observationRange> </ referenceRange> </observation> </component> </ organizer> </entry> <entry> <organizer moodCode="EVN " classCode="BATTERY"> <templateId root=" 2.16.840.1.676253.10.20.22.4.1" /> <idnullFlavor="NA" /> <code codeSystem="local" code="PHOS" displayName="PHOSPHORUS" /> <statusCode code=" completed" /> <component> <observation moodCode=& quot;EVN" classCode="OBS"> <templateId root=" 2.16.840.1.189488.10..22.4.2" /> <id nullFlavor="NA& quot; /> <code codeSystem="local" code="PHOS&quot ; displayName="PHOSPHORUS" /> <statusCode code=" completed" /> <effectiveTime value="556125514787" /> <value unit="mg/dL" xsi:type="PQ" value=& quot;2.2" /> <interpretationCode codeSystem="local&quot ; code="*" /> <referenceRange> < observationRange> <text>2.5-4.9</text> </ observationRange> </referenceRange> </observation&gt ; </component> </organizer> </entry> <entry> <organizer moodCode="EVN" classCode="BATTERY"> <templateId root="2.16.840.1.174922.10.20.22.4.1" /> < id nullFlavor="NA" /> <code codeSystem="local" code ="MAG" displayName="MAGNESIUM" /> <statusCode code="completed" /> <component> < observationmoodCode="EVN" classCode="OBS"> < templateId root="2.16.840.1.026399.10.20.22.4.2" /> < id nullFlavor="NA" /> <code codeSystem="local&quot ; code="MAG" displayName="MAGNESIUM" /> < statusCode code="completed" /> <effectiveTime value=& quot;469784850079"/> <value unit="mg/dL" xsi:type= "PQ" value="1.9" /> <referenceRange> <observationRange> <text>1.8-2.4</text> </observationRange> </referenceRange> </ observation> </component> </organizer> </entry> & lt;entry> <organizer moodCode="EVN" classCode="BATTERY& quot;> <templateId root="2.16.840.1.470746.10.20.22.4.1" /& gt; <id nullFlavor="NA" /> <code codeSystem=" local" code="CBC" displayName="CBC" /> < statusCode code="completed" /> <component> < observation moodCode="EVN" classCode="OBS"> < templateId root="2.16.840.1.501362.10..22.4.2" /> < id nullFlavor="NA" /> <code codeSystem="local&quot ; code="MCH" displayName="MEAN CELL HGB" /> < statusCode code="completed" /> <effectiveTime value=& quot;402596279110" /> <value unit="pg" xsi:type=& quot;PQ" value="31.7" /> <referenceRange> <observationRange> <text>27.0-33.0</text> </observationRange> </referenceRange> & lt;/observation> </component> <component> < observation moodCode="EVN" classCode="OBS"> < templateId root="2.16.840.1.319190.10.20.22.4.2" /> < id nullFlavor="NA" /> <code codeSystem="local&quot ; code="MCHC" displayName="MEAN CELL HGB CONCENTRATION" /&gt ; <statusCode code="completed" /> < effectiveTime value="221113341999" /> <value unit=&quot ;g/dL" xsi:type="PQ" value="34.6" /> < referenceRange> <observationRange> <text> 32.0-37.0</text> </observationRange> </ referenceRange> </observation> </component> < component> <observation moodCode="EVN" classCode=" OBS"> <templateId root="2.16.840.1.741620.10.20.22.4.2& quot; /> <id nullFlavor="NA" /> <code codeSystem="local" code="MCV"displayName="MEAN CELL VOLUME" /> <statusCode code="completed" /> <effectiveTime value="455393413791" /> <value unit="fl" xsi:type="PQ" value="91.6" /> <referenceRange><observationRange> <text>80.0- 100.0</text> </observationRange> </ referenceRange> </observation> </component> < component> <observation moodCode="EVN" classCode=" OBS"> <templateId root="2.16.840.1.807396.10.20.22.4.2" / > <id nullFlavor="NA" /> <code codeSystem="local" code="MPVT" displayName="MEAN PLATELET VOLUME" /> <statusCode code="completed" / > <effectiveTime value="639845718061" /> < value unit="fl" xsi:type="PQ" value="11.0" /> <interpretationCode codeSystem="local" code="*" /> <referenceRange> <observationRange> <text>8.5-10.9</text> </observationRange> </referenceRange> </observation> </component > <component> <observation moodCode="EVN" classCode="OBS"> <templateId root=" 2.16.840.1.002152.10.20.22.4.2" /> <id nullFlavor="NA& quot; /> <code codeSystem="local" code="RBC" displayName="RED BLOOD CELL" /> <statusCode code=" completed" /> <effectiveTime value="735316536930" /> <value unit="m/cumm" xsi:type="PQ" value=& quot;3.34" /> <interpretationCode codeSystem="local& quot; code="*" /> <referenceRange> < observationRange> <text>4.00-6.00</text> </observationRange> </referenceRange> </ observation> </component> <component> < observation moodCode="EVN" classCode="OBS"> < templateId root="2.16.840.1.593831.10.20.22.4.2" /> < id nullFlavor="NA" /> <code codeSystem="local&quot ; code="RDW" displayName="RED CELL DISTRIBUTION WIDTH" /&gt ; <statusCode code="completed" /> < effectiveTime value="885324934192" /> <value unit=&quot ;%" xsi:type="PQ" value="13.6" /> & lt;referenceRange> <observationRange> <text& gt;11.0-15.6</text> </observationRange> </ referenceRange> </observation> </component> < component> <observation moodCode="EVN" classCode=" OBS"> <templateId root="2.16.840.1.309628.10.20.22.4.2& quot; /> <id nullFlavor="NA" /> <code codeSystem="local" code="WBC" displayName="WHITE BLOOD CELL" /> <statusCode code="completed" /> <effectiveTime value="239850800210" /> <value unit="k/cumm" xsi:type="PQ" value="12.4" /> <interpretationCode codeSystem="local" code="*" /> <referenceRange> <observationRange> <text>5.0-10.0</text> </observationRange> & lt;/referenceRange> </observation> </component> <component> <observation moodCode="EVN" classCode=& quot;OBS"> <templateId root=" 2.16.840.1.659721.10.20.22.4.2" /> <id nullFlavor="NA" /& gt; <code codeSystem="local" code="HGBT" displayName="HEMOGLOBIN" /> <statusCode code=" completed" /> <effectiveTime value="388082702246" /> <value unit="gm/dL" xsi:type="PQ" value=& quot;10.6" /> <interpretationCode codeSystem="local& quot; code="*" /> <referenceRange> < observationRange> <text>14.0-18.0</text> </observationRange> </referenceRange> </ observation> </component> <component> < observation moodCode="EVN" classCode="OBS"> < templateId root="2.16.840.1.018084.10.20.22.4.2" /> < id nullFlavor="NA" /> <code codeSystem="local&quot ; code="HCTT" displayName="HEMATOCRIT" /> < statusCode code="completed" /> <effectiveTime value=& quot;098395378512" /> <value unit="%" xsi: type="PQ" value="30.6" /> < interpretationCode codeSystem="local" code="*" /> <referenceRange> <observationRange> <text>40.0- 54.0</text> </observationRange> </ referenceRange> </observation> </component> < component> <observation moodCode="EVN" classCode=" OBS"> <templateId root="2.16.840.1.532232.10.20.22.4.2& quot; /> <id nullFlavor="NA" /> < codecodeSystem="local" code="PLTT" displayName=" PLATELET COUNT" /> <statusCode code="completed" /> <effectiveTime value="438776496719" /> < value unit="k/cumm" xsi:type="PQ" value="90" /&gt ; <interpretationCode codeSystem="local" code="*&quot ; /> <referenceRange> <observationRange> <text>150-400</text> </observationRange> </referenceRange> </observation> </component> </organizer> </entry> <entry> <organizer moodCode=& quot;EVN" classCode="BATTERY"> <templateId root=" 2.16.840.1.633513.10.20.22.4.1" /> <id nullFlavor="NA&quot ; /> <code codeSystem="local" code="METABC" displayName="METABOLIC PANEL, COMPREHN" /> <statusCode code ="completed" /> <component> <observation moodCode="EVN" classCode="OBS"> <templateId root="2.16.840.1.255186.10..22.4.2" /> <id nullFlavor ="NA" /> <code codeSystem="local" code=" K" displayName="POTASSIUM" /> <statusCode code=& quot;completed" /> <effectiveTime value="008767529299& quot; /> <value unit="mmol/L" xsi:type="PQ" value=& quot;4.0" /> <referenceRange> < observationRange> <text>3.5-5.3</text> & lt;/observationRange> </referenceRange> </ observation> </component> <component> < observation moodCode="EVN" classCode="OBS"> < templateId root="2.16.840.1.624959.10.20.22.4.2" /> <id nullFlavor="NA" /> <code codeSystem="local" code="eGFR" displayName="EST GFR (MDRD)" /> < statusCode code="completed" /> <effectiveTime value=& quot;161072205115" /> <value unit="mL/min" xsi: type="PQ" value="> 60" /> < referenceRange> <observationRange> <text> > 59</text> </observationRange> </ referenceRange> </observation> </component> < component> <observation moodCode="EVN" classCode=" OBS"> <templateId root="2.16.840.1.126463.10.20.22.4.2& quot; /> <id nullFlavor="NA" /> <code codeSystem="local" code="GAP" displayName="ANION GAP& quot; /> <statusCode code="completed" /> & lt;effectiveTime value="025082123690" /> <value unit=& quot;mmol/L" xsi:type="PQ" value="11" /> & lt;referenceRange> <observationRange> <text>5- 15</text> </observationRange> </ referenceRange> </observation> </component>< component> <observation moodCode="EVN" classCode=" OBS"> <templateId root="2.16.840.1.915171.10..22.4.2" /> <id nullFlavor="NA" /> <code codeSystem="local" code="eCrCl" displayName="EST CrCl ( CG)" /> <statusCode code="completed" /> <effectiveTime value="868409608446" /> <value unit="mL/min" xsi:type="PQ" value="57" /> <interpretationCode codeSystem="local" code="*" /&gt ; <referenceRange> <observationRange> <text>> 59</text> </observationRange> </referenceRange> </observation> </component> <component> <observation moodCode="EVN" classCode="OBS"> <templateId root=" 2.16.840.1.119960.10.20.22.4.2" /> <id nullFlavor="NA& quot; /> <code codeSystem="local" code="GLU" displayName="GLUCOSE" /> <statusCode code="completed& quot; /> <effectiveTime value="931122119515" /> <value unit="mg/dL" xsi:type="PQ" value="91& quot; /> <referenceRange> <observationRange> <text>70-99</text> </observationRange&gt ; </referenceRange> </observation> </ component> <component> <observation moodCode="EVN& quot; classCode="OBS"> <templateId root=" 2.16.840.1.218056.10.20.22.4.2" /> <id nullFlavor="NA& quot; /> <code codeSystem="local" code="CA" displayName="CALCIUM" /> <statusCode code=" completed" /> <effectiveTime value="055801922829" /> <value unit="mg/dL" xsi:type="PQ" value=& quot;7.2" /> <interpretationCode codeSystem="local&quot ; code="*" /> <referenceRange> < observationRange> <text>8.5-10.1</text> & lt;/observationRange> </referenceRange> </ observation> </component> <component> < observation moodCode="EVN" classCode="OBS"> < templateId root="2.16.840.1.523421.10.20.22.4.2" /> < id nullFlavor="NA" /> <code codeSystem="local&quot ; code="BUN" displayName="BLOOD UREA NITROGEN" /> <statusCode code="completed" /> <effectiveTime value="233311689417" /> <value unit="mg/dL" xsi:type="PQ" value="21" /> < interpretationCode codeSystem="local" code="*" /> <referenceRange> <observationRange> < text>7-20</text> </observationRange> </ referenceRange> </observation> </component> < component> <observation moodCode="EVN" classCode="OBS&quot ;> <templateId root="2.16.840.1.983221.10.20.22.4.2" /& gt; <id nullFlavor="NA" /> <code codeSystem=& quot;local" code="CREAT" displayName="CREATININE" /&gt ; <statusCode code="completed" /> < effectiveTime value="383928191331" /> <value unit=&quot ;mg/dL" xsi:type="PQ" value="0.9" /> < referenceRange> <observationRange><text>0.7-1.3</ text> </observationRange> </referenceRange> </observation> </component> <component> <observation moodCode="EVN" classCode="OBS"> <templateId root="2.16.840.1.658198.10.20.22.4.2" /> <id nullFlavor="NA" /> <code codeSystem=" local" code="NA" displayName="SODIUM" /> & lt;statusCode code="completed" /> <effectiveTime value= "469695110570" /> <value unit="mmol/L" xsi: type="PQ" value="134" /> <interpretationCode codeSystem="local" code="*" /> < referenceRange> <observationRange> <text> 135-148</text> </observationRange> </referenceRange& gt; </observation> </component> <component> <observation moodCode="EVN" classCode="OBS"> <templateId root="2.16.840.1.192608.10.20.22.4.2" />< id nullFlavor="NA" /> <code codeSystem="local&quot ; code="CL" displayName="CHLORIDE" /> < statusCode code="completed" /> <effectiveTime value=& quot;521392681211" /> <value unit="mmol/L" xsi: type="PQ" value="105" /> <referenceRange>& lt;observationRange> <text>98-110</text> </observationRange> </referenceRange> </ observation> </component> <component> < observation moodCode="EVN" classCode="OBS"> < templateId root="2.16.840.1.715996.10.20.22.4.2" /> < id nullFlavor="NA" /> <code codeSystem="local&quot ; code="AST" displayName="AST/SGOT" /> < statusCode code="completed" /> <effectiveTime value=& quot;744488044932" /> <value unit="Units/L" xsi: type="PQ" value="181" /> <interpretationCode codeSystem="local" code="*" /> < referenceRange> <observationRange> <text>10-37</ text> </observationRange> </referenceRange> </observation> </component> <component> <observation moodCode="EVN" classCode="OBS"> <templateId root="2.16.840.1.851591.10.20.22.4.2" /> <id nullFlavor="NA" /> <code codeSystem=" local" code="ALT" displayName="ALT/SGPT" /> <statusCode code="completed" /> <effectiveTime value="336434239989" /> <value unit="Units/L&quot ; xsi:type="PQ" value="224" /> < interpretationCode codeSystem="local" code="*" /> <referenceRange> <observationRange> < text>< 66</text> </observationRange> & lt;/referenceRange> </observation> </component> < component> <observation moodCode="EVN" classCode=" OBS"> <templateId root="2.16.840.1.081517.10.20.22.4.2& quot; /> <id nullFlavor="NA" /> <code codeSystem="local" code="CO2" displayName="CARBON DIOXIDE" /> <statusCode code="completed" /> <effectiveTime value="016262312809" /> < value unit="mmol/L" xsi:type="PQ" value="18" /&gt ; <interpretationCode codeSystem="local" code="*&quot ; /> <referenceRange> <observationRange> <text>21-32</text> </observationRange> </referenceRange> </observation> </component& gt; <component> <observation moodCode="EVN" classCode="OBS"> <templateId root=" 2.16.840.1.494552.10.20.22.4.2" /> <id nullFlavor="NA& quot; /> <code codeSystem="local" code="TP" displayName="TOTAL PROTEIN" /> <statusCode code=" completed" /> <effectiveTime value="031124615858" /> <value unit="gm/dL" xsi:type="PQ" value=& quot;5.3" /> <interpretationCode codeSystem="local&quot ; code="*" /> <referenceRange> < observationRange><text>6.4-8.2</text> </ observationRange> </referenceRange> </observation&gt ; </component> <component> <observation moodCode ="EVN" classCode="OBS"> <templateId root=& quot;2.16.840.1.135419.10.20.22.4.2" /> <id nullFlavor=&quot ;NA" /> <code codeSystem="local" code="ALB& quot; displayName="ALBUMIN" /> <statusCode code=" completed" /> <effectiveTime value="754552183369" /> <value unit="gm/dL" xsi:type="PQ" value=& quot;2.3" /> <interpretationCode codeSystem="local" code="*" /> <referenceRange> < observationRange> <text>3.4-5.0</text> </ observationRange> </referenceRange> </observation&gt ; </component> <component> <observation moodCode ="EVN" classCode="OBS"> <templateId root=& quot;2.16.840.1.378034.10.20.22.4.2" /> <id nullFlavor="NA&quot ; /> <code codeSystem="local" code="BILTOT" displayName="BILI TOTAL" /> <statusCode code=" completed" /> <effectiveTime value="541529819824" /> <value unit="mg/dL" xsi:type="PQ" value=& quot;2.6" /> <interpretationCode codeSystem="local&quot ; code="*" /> <referenceRange> < observationRange> <text>0.0-1.0</text> & lt;/observationRange> </referenceRange> </observation& gt; </component> <component> <observation moodCode="EVN" classCode="OBS"> <templateId root="2.16.840.1.317494.10.20.22.4.2" /> <id nullFlavor ="NA" /> <code codeSystem="local" code=" ALKP" displayName="ALKALINE PHOSPHATASE TOTAL" /> &lt ;statusCode code="completed" /> <effectiveTime value=& quot;587579305969" /> <value unit="IU/L" xsi:type= "PQ" value="120" /> <interpretationCode codeSystem="local" code="*" /> < referenceRange> <observationRange> <text>45- 117</text> </observationRange> </ referenceRange> </observation> </component> </ organizer> </entry><entry> <organizer moodCode="EVN& quot; classCode="BATTERY"> <templateId root=" 2.16.840.1.374176.10.20.22.4.1" /> <id nullFlavor="NA" /> <code codeSystem="local" code="PHOS" displayName="PHOSPHORUS" /> <statusCode code=" completed" /> <component> <observation moodCode=& quot;EVN" classCode="OBS"> <templateId root=" 2.16.840.1.331751.10.20.22.4.2" /> <id nullFlavor="NA& quot; /> <code codeSystem="local" code="PHOS&quot ; displayName="PHOSPHORUS" /> <statusCode code=" completed" /> <effectiveTime value="784585435544" /> <value unit="mg/dL" xsi:type="PQ" value=& quot;2.2" /> <interpretationCode codeSystem="local&quot ; code="*" /> <referenceRange> < observationRange> <text>2.5-4.9</text> & lt;/observationRange> </referenceRange> </ observation> </component> </organizer> </entry> & lt;entry> <organizer moodCode="EVN" classCode="BATTERY& quot;> <templateId root="2.16.840.1.117534.10.20.22.4.1" /& gt; <id nullFlavor="NA" /> <code codeSystem=" local" code="MAG" displayName="MAGNESIUM" /> & lt;statusCode code="completed" /> <component> &lt ;observation moodCode="EVN" classCode="OBS"> &lt ;templateId root="2.16.840.1.968578.10..22.4.2"/> < id nullFlavor="NA" /> <code codeSystem="local&quot ;code="MAG" displayName="MAGNESIUM" /> < statusCode code="completed" /> <effectiveTime value=& quot;070290991080" /> <value unit="mg/dL" xsi:type ="PQ" value="1.9" /> <referenceRange> <observationRange> <text>1.8-2.4</text> </observationRange> </referenceRange> &lt ;/observation> </component> </organizer> </entry> <entry> <organizer moodCode="EVN" classCode=" BATTERY"> <templateId root="2.16.840.1.167634.10.20.22.4.1& quot; /> <id nullFlavor="NA" /> <code codeSystem ="local" code="METABC" displayName="METABOLIC PANEL, COMPREHN" /> <statusCode code="completed" /> & lt;component> <observation moodCode="EVN" classCode=&quot ;OBS"> <templateId root="2.16.840.1.397453.10..22.4.2 " /> <id nullFlavor="NA" /> <code codeSystem="local" code="K" displayName="POTASSIUM&quot ; /> <statusCode code="completed" /> < effectiveTime value="332554895869" /> <value unit=&quot ;mmol/L" xsi:type="PQ" value="3.6" /> < referenceRange> <observationRange> <text> 3.5-5.3</text> </observationRange> </ referenceRange> </observation> </component> < component> <observation moodCode="EVN" classCode=" OBS"> <templateId root="2.16.840.1.290435.10.20.22.4.2& quot; /> <id nullFlavor="NA" /> <code codeSystem="local" code="eGFR" displayName="EST GFR ( MDRD)" /> <statusCode code="completed" /> <effectiveTime value="454957252442" /> <value unit=& quot;mL/min" xsi:type="PQ" value="> 60" /> <referenceRange> <observationRange> < text>> 59</text> </observationRange> & lt;/referenceRange> </observation> </component> & lt;component> <observation moodCode="EVN" classCode=&quot ;OBS"> <templateId root="2.16.840.1.863984.10.20.22.4.2& quot; /> <id nullFlavor="NA" /> <code codeSystem="local" code="GAP" displayName="ANION GAP& quot; /> <statusCode code="completed" /> & lt;effectiveTime value="858631407747" /> <value unit=& quot;mmol/L" xsi:type="PQ" value="10" /> & lt;referenceRange> <observationRange> <text& gt;5-15</text> </observationRange></referenceRange&gt ; </observation> </component> <component> <observation moodCode="EVN" classCode="OBS"> <templateId root="2.16.840.1.004762.10..22.4.2" /> <id nullFlavor="NA" /> <code codeSystem="local " code="eCrCl" displayName="EST CrCl (CG)" /> <statusCode code="completed" /> <effectiveTime value="334651731656" /> <value unit="mL/min" xsi:type="PQ" value="> 60" /> < referenceRange> <observationRange> <text> > 59</text> </observationRange> </ referenceRange> </observation> </component> < component> <observation moodCode="EVN" classCode="OBS&quot ;> <templateId root="2.16.840.1.403692.10.20.22.4.2" /& gt; <id nullFlavor="NA" /> <code codeSystem=& quot;local" code="GLU" displayName="GLUCOSE" /> <statusCode code="completed" /> < effectiveTime value="210300096483" /> <value unit=&quot ;mg/dL" xsi:type="PQ" value="74" /> < referenceRange> <observationRange> <text> 70-99</text> </observationRange> </ referenceRange> </observation> </component> < component> <observation moodCode="EVN" classCode=" OBS"> <templateId root="2.16.840.1.612425.10.20.22.4.2& quot; /> <id nullFlavor="NA" /> <code codeSystem="local" code="CA" displayName="CALCIUM&quot ; /> <statusCode code="completed" /> < effectiveTime value="778019666823" /> <value unit="mg/dL& quot; xsi:type="PQ" value="7.4" /> < interpretationCode codeSystem="local" code="*" /> <referenceRange> <observationRange> < text>8.5-10.1</text> </observationRange> < /referenceRange> </observation> </component> &lt ;component> <observation moodCode="EVN" classCode=" OBS"> <templateId root="2.16.840.1.174621.10..22.4.2& quot; /> <idnullFlavor="NA" /> <code codeSystem="local" code="BUN" displayName="BLOOD UREA NITROGEN" /> <statusCode code="completed" /> <effectiveTime value="844666846554" /> < value unit="mg/dL" xsi:type="PQ" value="17" /> <referenceRange> <observationRange> < text>7-20</text> </observationRange> </ referenceRange> </observation> </component> < component> <observation moodCode="EVN" classCode=" OBS"><templateId root="2.16.840.1.881586.10..22.4.2" /&gt ; <id nullFlavor="NA" /> <code codeSystem=& quot;local" code="CREAT" displayName="CREATININE" /&gt ; <statusCode code="completed" /> < effectiveTime value="207391882277" /> <value unit=&quot ;mg/dL" xsi:type="PQ" value="0.8" /> < referenceRange> <observationRange> <text> 0.7-1.3</text> </observationRange> </ referenceRange> </observation> </component> < component> <observation moodCode="EVN" classCode="OBS&quot ;> <templateId root="[id number]" /& gt; <id nullFlavor="NA" /> <code codeSystem=& quot;local" code="NA" displayName="SODIUM" /> <statusCode code="completed" /> <effectiveTime value="[id number]" /> <value unit="mmol/L" xsi:type="PQ" value="140" /> <referenceRange& gt; <observationRange> <text>135-148</ text> </observationRange> </referenceRange> </observation> </component> <component> &lt ;observation moodCode="EVN" classCode="OBS"> &lt ;templateId root="2.16.840.1.817868.10.20.22.4.2" /> < id nullFlavor="NA" /> <code codeSystem="local&quot ; code="CL" displayName="CHLORIDE" /> < statusCode code="completed" /> <effectiveTime value=& quot;173374765822" /> <value unit="mmol/L" xsi:type=& quot;PQ" value="110" /><referenceRange> < observationRange> <text>98-110</text> &lt ;/observationRange> </referenceRange> </observation& gt; </component> <component> <observation moodCode="EVN" classCode="OBS"> <templateId root="2.16.840.1.978114.10.20.22.4.2" /> <id nullFlavor ="NA" /> <code codeSystem="local" code=" AST" displayName="AST/SGOT" /> <statusCode code=& quot;completed" /> <effectiveTime value="004519158696& quot; /> <value unit="Units/L" xsi:type="PQ" value="103" /> <interpretationCode codeSystem=" local" code="*" /> <referenceRange> <observationRange> <text>10-37</text> </observationRange> </referenceRange> </ observation> </component> <component> < observation moodCode="EVN" classCode="OBS"> < templateId root="2.16.840.1.353334.10..22.4.2" /> < id nullFlavor="NA" /> <code codeSystem="local&quot ; code="ALT" displayName="ALT/SGPT" /> < statusCode code="completed" /> <effectiveTimevalue=& quot;516477937110" /> <value unit="Units/L" xsi: type="PQ" value="140" /> <interpretationCode codeSystem="local" code="*" /> < referenceRange> <observationRange> <text> < 66</text> </observationRange> </ referenceRange> </observation> </component> < component> <observationmoodCode="EVN" classCode="OBS "> <templateId root="2.16.840.1.856669.10..22.4.2& quot; /> <id nullFlavor="NA" /> <code codeSystem="local" code="CO2" displayName="CARBON DIOXIDE" /><statusCode code="completed" /> < effectiveTime value="788389959074" /> <value unit=&quot ;mmol/L" xsi:type="PQ" value="20" /> < interpretationCode codeSystem="local" code="*" /> <referenceRange> <observationRange> < text>21-32</text> </observationRange> </ referenceRange> </observation> </component> < component> <observation moodCode="EVN" classCode=" OBS"> <templateId root="2.16.840.1.321845.10.20.22.4.2& quot; /> <id nullFlavor="NA" /> <code codeSystem="local" code="TP" displayName="TOTAL PROTEIN " /> <statusCode code="completed" /> & lt;effectiveTime value="181537966695" /> <value unit=& quot;gm/dL" xsi:type="PQ" value="5.3" /> & lt;interpretationCodecodeSystem="local" code="*" /> <referenceRange> <observationRange> &lt ;text>6.4-8.2</text> </observationRange> < /referenceRange> </observation> </component> &lt ;component> <observation moodCode="EVN" classCode=" OBS"> <templateId root="2.16.840.1.713013.10.20.22.4.2& quot; /> <id nullFlavor="NA" /> <code codeSystem="local" code="ALB" displayName="ALBUMIN&quot ; /> <statusCode code="completed" /> < effectiveTimevalue="955853227573" /> <value unit=" gm/dL" xsi:type="PQ" value="2.3" /> < interpretationCode codeSystem="local" code="*" /> <referenceRange> <observationRange> < text>3.4-5.0</text> </observationRange> </ referenceRange> </observation> </component> < component> <observation moodCode="EVN" classCode=" OBS"> <templateId root="2.16.840.1.200256.10.20.22.4.2& quot; /> <id nullFlavor="NA" /> <code codeSystem="local" code="BILTOT" displayName="BILI TOTAL" /> <statusCode code="completed" /> <effectiveTime value="475790838616" /> <value unit="mg/dL" xsi:type="PQ" value="1.8" /> <interpretationCode codeSystem="local" code="*" /> <referenceRange> <observationRange> & lt;text>0.0-1.0</text> </observationRange> </ referenceRange> </observation> </component> < component> <observation moodCode="EVN" classCode=" OBS"> <templateId root="2.16.840.1.255022.10.20.22.4.2& quot; /> <id nullFlavor="NA" /> <code codeSystem ="local" code="ALKP" displayName="ALKALINE PHOSPHATASE TOTAL" /> <statusCode code="completed" /> <effectiveTime value="589091291979" /> <value unit="IU/L" xsi:type="PQ" value="121" /> <interpretationCode codeSystem="local" code="*" /&gt ; <referenceRange> <observationRange> < text>45-117</text> </observationRange> </ referenceRange> </observation> </component> </ organizer> </entry> <entry> <organizer moodCode="EVN " classCode="BATTERY"> <templateId root=" 2.16.840.1.553994.10.20.22.4.1" /> <id nullFlavor="NA" /&gt ; <code codeSystem="local" code="MAG" displayName=& quot;MAGNESIUM" /> <statusCode code="completed" />& lt;component> <observation moodCode="EVN" classCode=&quot ;OBS"> <templateId root="2.16.840.1.535357.10.20.22.4.2&quot ; /> <id nullFlavor="NA" /> <code codeSystem="local" code="MAG" displayName="MAGNESIUM& quot; /> <statusCode code="completed" /> & lt;effectiveTime value="720372579976" /> <value unit=& quot;mg/dL" xsi:type="PQ" value="1.9" /> & lt;referenceRange> <observationRange> <text& gt;1.8-2.4</text> </observationRange> </ referenceRange> </observation> </component> </ organizer> </entry> <entry> <organizer moodCode="EVN " classCode="BATTERY"> <templateId root=" 2.16.840.1.344445.10.20.22.4.1" /> <id nullFlavor="NA&quot ; /> <code codeSystem="local" code="CBCD" displayName="CBC W/DIFF" /> <statusCode code=" completed" /> <component> <observation moodCode=" EVN" classCode="OBS"> <templateId root=" 2.16.840.1.195269.10.20.22.4.2" /> <id nullFlavor="NA& quot; /> <code codeSystem="local" code="BUR" displayName="BRENDEN CELLS" /> <statusCode code=" completed" /> <effectiveTime value="117224335184" /> <value unit="" xsi:type="PQ" value=" NOTED" /> <referenceRange> < observationRange> <text /> </ observationRange> </referenceRange> </observation&gt ; </component> <component> <observation moodCode ="EVN" classCode="OBS"> <templateId root=& quot;2.16.840.1.291508.10.20.22.4.2" /> <id nullFlavor=&quot ;NA" /> <code codeSystem="local" code="CBCCOM " displayName="COMMENT" /> <statusCode code=" completed" /> <effectiveTime value="396213984073" /> <value unit="" xsi:type="PQ" value=" REVIEWED" /> <referenceRange> < observationRange> <text /> </ observationRange> </referenceRange> </observation&gt ; </component><component> <observation moodCode=&quot ;EVN" classCode="OBS"> <templateId root=" 2.16.840.1.654371.10.20.22.4.2" /> <id nullFlavor="NA& quot; /> <code codeSystem="local" code="DB" displayName="DOHLE BODIES" /> <statusCode code=" completed" /> <effectiveTime value="065053608301" /> <value unit="" xsi:type="PQ" value=" NOTED" /> <referenceRange> < observationRange> <text /> </ observationRange> </referenceRange> </observation&gt ; </component> <component> <observationmoodCode= "EVN" classCode="OBS"> <templateId root=&quot ;2.16.840.1.812205.10.20.22.4.2" /> <id nullFlavor="NA& quot; /> <code codeSystem="local" code="EO#" displayName="EOSINOPHIL #" /> <statusCode code=" completed" /> <effectiveTime value="331907611084" /> <value unit="k/cumm" xsi:type="PQ" value=& quot;0.1" /> <referenceRange> < observationRange> <text>0.1-0.5</text> & lt;/observationRange> </referenceRange> </ observation> </component> <component> < observation moodCode="EVN" classCode="OBS"> < templateId root="2.16.840.1.174117.10.20.22.4.2" /> < id nullFlavor="NA" /> <code codeSystem="local&quot ; code="EO%" displayName="EOSINOPHIL %" /&gt ; <statusCode code="completed" /> < effectiveTime value="552945678448" /> <value unit=&quot ;%" xsi:type="PQ" value="1" /> < interpretationCode codeSystem="local" code="*" /> <referenceRange> <observationRange> < text>2-4</text> </observationRange> </ referenceRange> </observation> </component> < component> <observation moodCode="EVN" classCode=" OBS"> <templateId root="2.16.840.1.975490.10.20.22.4.2& quot; /> <id nullFlavor="NA" /> <code codeSystem="local" code="GR#" displayName="GRANULOCYTE #" /> <statusCode code="completed" /> <effectiveTime value="343673086280" /> <value unit=& quot;k/cumm" xsi:type="PQ" value="9.3" /> & lt;interpretationCode codeSystem="local" code="*" /> <referenceRange> <observationRange> & lt;text>2.0-9.0</text> </observationRange> & lt;/referenceRange> </observation> </component> <component> <observation moodCode="EVN" classCode=& quot;OBS"> <templateId root=" 2.16.840.1.790182.10.20.22.4.2" /> <id nullFlavor="NA& quot; /> <code codeSystem="local" code="GR&#37 ;" displayName="GRANULOCYTE %" /> < statusCode code="completed" /> <effectiveTime value=" 256961360027" /> <value unit="%" xsi:type= "PQ" value="86" /> <interpretationCode codeSystem="local" code="*" /> < referenceRange> <observationRange> <text> 50-75</text> </observationRange> </ referenceRange> </observation> </component> < component> <observation moodCode="EVN" classCode=" OBS"> <templateId root="2.16.840.1.054338.10.20.22.4.2& quot; /> <id nullFlavor="NA" /> <code codeSystem="local" code="LY#" displayName="LYMPHOCYTE # " /> <statusCode code="completed" /> & lt;effectiveTime value="295560606963" /> <value unit=& quot;k/cumm" xsi:type="PQ" value="0.8" /> & lt;interpretationCode codeSystem="local" code="*" /> <referenceRange> <observationRange> & lt;text>1.0-4.0</text> </observationRange> & lt;/referenceRange> </observation> </component> <component> <observation moodCode="EVN" classCode=& quot;OBS"> <templateId root=" 2.16.840.1.009434.10..22.4.2" /> <id nullFlavor="NA& quot; /> <code codeSystem="local" code="LY&#37 ;" displayName="LYMPHOCYTE %" /> < statusCode code="completed" /> <effectiveTime value=& quot;489226393698" /> <value unit="%" xsi: type="PQ" value="8" /> <interpretationCode codeSystem="local" code="*" /> < referenceRange> <observationRange> <text> 20-30</text> </observationRange> </ referenceRange> </observation></component> < component> <observation moodCode="EVN" classCode=" OBS"> <templateId root="2.16.840.1.836775.10.20.22.4.2& quot; /> <id nullFlavor="NA" /> <code codeSystem="local" code="MCH" displayName="MEAN CELL HGB" /> <statusCode code="completed" /> <effectiveTime value="972886527602" /> <value unit="pg" xsi:type="PQ" value="30.4" /> <referenceRange> <observationRange> <text& gt;27.0-33.0</text> </observationRange> </ referenceRange> </observation> </component> < component> <observation moodCode="EVN" classCode=" OBS"> <templateId root="2.16.840.1.477456.10.20.22.4.2& quot; /> <id nullFlavor="NA" /> <code codeSystem="local" code="MCHC" displayName="MEAN CELL HGB CONCENTRATION" /> <statusCode code="completed&quot ; /> <effectiveTime value="470732605533" /> <value unit="g/dL" xsi:type="PQ" value="34.1&quot ; /> <referenceRange> <observationRange> <text>32.0-37.0</text> </observationRange> </referenceRange> </observation> </component& gt; <component> <observation moodCode="EVN" classCode="OBS"> <templateId root=" 2.16.840.1.622798.10..22.4.2" /> <id nullFlavor="NA& quot; /> <code codeSystem="local" code="MCV" displayName="MEAN CELL VOLUME" /> <statusCode code=& quot;completed" /> <effectiveTime value="216373039950" / > <value unit="fl" xsi:type="PQ" value=" 89.0" /> <referenceRange> <observationRange > <text>80.0-100.0</text> </ observationRange> </referenceRange> </observation&gt ; </component> <component> <observation moodCode ="EVN" classCode="OBS"> <templateId root=& quot;2.16.840.1.377566.10..22.4.2" /> <id nullFlavor=&quot ;NA" /> <code codeSystem="local" code="MO#& quot; displayName="MONOCYTE #" /> <statusCode code=& quot;completed" /> <effectiveTime value="336977006208& quot; /> <value unit="k/cumm" xsi:type="PQ" value="0.5" /> <referenceRange> < observationRange> <text>0.1-1.0</text> &lt ;/observationRange> </referenceRange> </observation& gt; </component> <component> <observation moodCode="EVN" classCode="OBS"> <templateId root="2.16.840.1.700847.10.20.22.4.2" /> <id nullFlavor ="NA" /><code codeSystem="local" code="MO&#37 ;" displayName="MONOCYTE %" /> < statusCode code="completed" /> <effectiveTime value=& quot;198242065814" /> <value unit="%" xsi: type="PQ" value="5" /> <referenceRange> <observationRange> <text>4-6</text> </observationRange> </referenceRange> </ observation> </component> <component> < observation moodCode="EVN" classCode="OBS"> < templateId root="2.16.840.1.635128.10.20.22.4.2" /> < id nullFlavor="NA" /> <code codeSystem="local&quot ; code="MPVT" displayName="MEAN PLATELET VOLUME" /> <statusCode code="completed" /> <effectiveTime value="099680040790" /> <value unit="fl" xsi: type="PQ" value="10.9" /> <referenceRange&gt ; <observationRange> <text>8.5-10.9</text > </observationRange> </referenceRange> & lt;/observation> </component> <component> < observation moodCode="EVN" classCode="OBS"> < templateId root="2.16.840.1.030379.10.20.22.4.2" /> < id nullFlavor="NA" /> <code codeSystem="local&quot ; code="OVAL" displayName="OVALOCYTES" /> < statusCode code="completed" /> <effectiveTime value=& quot;527561621286" /> <value unit="" xsi:type=& quot;PQ" value="NOTED" /> <referenceRange> & lt;observationRange> <text /> </ observationRange> </referenceRange> </observation&gt ; </component> <component> <observation moodCode ="EVN" classCode="OBS"> <templateId root=& quot;2.16.840.1.602070.10..22.4.2" /> <id nullFlavor=&quot ;NA" /> <code codeSystem="local" code="RBC& quot;displayName="RED BLOOD CELL" /> <statusCode code=& quot;completed" /> <effectiveTime value="295631357654& quot; /> <value unit="m/cumm" xsi:type="PQ" value="3.72" /> <interpretationCode codeSystem=" local" code="*" /> <referenceRange> <observationRange> <text>4.00-6.00</text> </observationRange> </referenceRange> </ observation> </component> <component> < observation moodCode="EVN" classCode="OBS"> < templateId root="2.16.840.1.706426.10..22.4.2" /> < id nullFlavor="NA" /> <code codeSystem="local&quot ; code="RDW" displayName="RED CELL DISTRIBUTION WIDTH" /&gt ; <statusCode code="completed" /> < effectiveTime value="698064284472" /> <value unit=&quot ;%" xsi:type="PQ" value="13.7" /> & lt;referenceRange> <observationRange> <text& gt;11.0-15.6</text> </observationRange> </ referenceRange> </observation> </component> < component> <observation moodCode="EVN" classCode=" OBS"> <templateId root="2.16.840.1.224047.10.20.22.4.2& quot; /> <id nullFlavor="NA" /> <code codeSystem="local" code="WBC" displayName="WHITE BLOOD CELL" /> <statusCode code="completed" /> <effectiveTime value="718569984535" /> <value unit="k/cumm" xsi:type="PQ" value="10.7" /> <interpretationCode codeSystem="local" code="*" /& gt; <referenceRange> <observationRange> < text>5.0-10.0</text> </observationRange> < /referenceRange> </observation> </component> &lt ;component> <observation moodCode="EVN" classCode=" OBS"> <templateId root="2.16.840.1.497391.10.20.22.4.2& quot; /> <id nullFlavor="NA" /> <code codeSystem="local" code="HGBT" displayName="HEMOGLOBIN& quot; /> <statusCode code="completed" /> & lt;effectiveTime value="887519491589" /> <value unit=& quot;gm/dL" xsi:type="PQ" value="11.3" /> & lt;interpretationCode codeSystem="local" code="*" /> <referenceRange> <observationRange> & lt;text>14.0-18.0</text> </observationRange> </referenceRange> </observation> </component> <component> <observation moodCode="EVN" classCode=& quot;OBS"> <templateId root=" 2.16.840.1.694648.10.20.22.4.2" /> <id nullFlavor="NA& quot; /> <code codeSystem="local" code="HCTT&quot ; displayName="HEMATOCRIT" /> <statusCode code=" completed" /> <effectiveTime value="564284217370" /> <value unit="%" xsi:type="PQ" value="33.1" /> <interpretationCode codeSystem=" local" code="*" /> <referenceRange> < observationRange> <text>40.0-54.0</text> </observationRange> </referenceRange> </ observation> </component> <component> < observation moodCode="EVN" classCode="OBS"> < templateId root="2.16.840.1.073837.10.20.22.4.2" /> < id nullFlavor="NA" /> <code codeSystem="local&quot ; code="PLTT" displayName="PLATELET COUNT" /> & lt;statusCode code="completed" /><effectiveTime value=" 445114893017" /> <value unit="k/cumm" xsi:type=& quot;PQ" value="97" /> <interpretationCode codeSystem="local" code="*" /> < referenceRange> <observationRange> <text> 150-400</text> </observationRange> </ referenceRange> </observation> </component> </ organizer> </entry> <entry> <organizer moodCode="EVN " classCode="BATTERY"> <templateId root=" 2.16.840.1.029494.10.20.22.4.1" /> <id nullFlavor="NA&quot ; /> <code codeSystem="local" code="METABC" displayName="METABOLIC PANEL, COMPREHN" /> <statusCode code ="completed" /> <component> <observation moodCode="EVN" classCode="OBS"> <templateId root="2.16.840.1.979327.10.20.22.4.2" /> <id nullFlavor ="NA" /> <code codeSystem="local" code=" K" displayName="POTASSIUM" /> <statusCode code=& quot;completed" /> <effectiveTime value="950147010875& quot; /> <value unit="mmol/L" xsi:type="PQ" value="3.6" /> <referenceRange> < observationRange> <text>3.5-5.3</text> </ observationRange> </referenceRange> </observation&gt ; </component> <component> <observation moodCode ="EVN" classCode="OBS"> <templateId root=& quot;2.16.840.1.294660.10.20.22.4.2" /> <id nullFlavor=&quot ;NA" /> <code codeSystem="local" code="eGFR& quot; displayName="EST GFR (MDRD)" /> <statusCode code=& quot;completed" /> <effectiveTime value="092324283252& quot; /> <value unit="mL/min" xsi:type="PQ" value="> 60" /> <referenceRange> & lt;observationRange> <text>> 59</text> </ observationRange> </referenceRange> </observation&gt ; </component> <component> <observation moodCode ="EVN" classCode="OBS"> <templateId root=& quot;2.16.840.1.311941.10..22.4.2" /> <id nullFlavor=&quot ;NA" /> <code codeSystem="local" code="GAP& quot; displayName="ANION GAP" /><statusCode code="completed " /> <effectiveTime value="691672190002" /> <value unit="mmol/L" xsi:type="PQ" value="10& quot; /> <referenceRange> <observationRange> <text>5-15</text> </observationRange&gt ; </referenceRange> </observation> </ component> <component> <observation moodCode="EVN& quot; classCode="OBS"> <templateId root=" 2.16.840.1.532384.10..22.4.2" /> <id nullFlavor="NA& quot; /> <code codeSystem="local" code="eCrCl&quot ; displayName="EST CrCl (CG)" /> <statusCode code=&quot ;completed" /> <effectiveTime value="379242379311&quot ; /> <value unit="mL/min" xsi:type="PQ" value="& amp;gt; 60" /> <referenceRange> <observationRange& gt; <text>> 59</text> </ observationRange> </referenceRange> </observation&gt ; </component> <component> <observation moodCode ="EVN" classCode="OBS"> <templateId root=& quot;2.16.840.1.990513.10..22.4.2" /> <id nullFlavor=&quot ;NA" /> <code codeSystem="local" code="GLU& quot; displayName="GLUCOSE" /> <statusCode code=" completed" /> <effectiveTime value="637748627358" /> <valueunit="mg/dL" xsi:type="PQ" value=& quot;74" /> <referenceRange> < observationRange> <text>70-99</text> < /observationRange> </referenceRange> </observation& gt; </component> <component> <observation moodCode="EVN" classCode="OBS"> <templateId root="2.16.840.1.786328.10..22.4.2" /> <id nullFlavor ="NA" /> <code codeSystem="local" code=" CA" displayName="CALCIUM" /> <statusCode code=& quot;completed" /> <effectiveTime value="193343696313& quot; /> <value unit="mg/dL" xsi:type="PQ" value="7.4" /> <interpretationCode codeSystem=" local" code="*" /> <referenceRange> <observationRange> <text>8.5-10.1</text> </observationRange> </referenceRange> </ observation> </component> <component> < observation moodCode="EVN" classCode="OBS"> < templateId root="2.16.840.1.059719.10.20.22.4.2" /> < id nullFlavor="NA" /><code codeSystem="local" code=& quot;BUN" displayName="BLOOD UREA NITROGEN" /> < statusCode code="completed" /> <effectiveTime value=& quot;651523463546" /> <value unit="mg/dL" xsi:type ="PQ" value="17" /> <referenceRange> <observationRange><text>7-20</text> </ observationRange> </referenceRange> </observation> </component> <component> <observation moodCode= "EVN" classCode="OBS"> <templateId root=&quot ;2.16.840.1.289510.10.20.22.4.2" /> <id nullFlavor="NA& quot; /> <code codeSystem="local" code="CREAT&quot ; displayName="CREATININE" /> <statusCode code=" completed" /> <effectiveTime value="166792508079" /> <value unit="mg/dL" xsi:type="PQ" value=& quot;0.8" /> <referenceRange> < observationRange> <text>0.7-1.3</text> & lt;/observationRange> </referenceRange> </ observation> </component> <component> < observation moodCode="EVN" classCode="OBS"> < templateId root="2.16.840.1.763443.10.20.22.4.2" /> < id nullFlavor="NA" /> <code codeSystem="local&quot ; code="NA" displayName="SODIUM" /> < statusCode code="completed" /> <effectiveTime value=& quot;049247688727" /> <value unit="mmol/L" xsi: type="PQ" value="140" /> <referenceRange> <observationRange> <text>135-148</text& gt; </observationRange> </referenceRange> </observation> </component> <component> &lt ;observation moodCode="EVN" classCode="OBS"> &lt ;templateId root="2.16.840.1.965245.10.20.22.4.2" /> < idnullFlavor="NA" /> <code codeSystem="local&quot ; code="CL" displayName="CHLORIDE" /> < statusCode code="completed" /> <effectiveTime value=" 574422400761" /> <value unit="mmol/L" xsi:type=& quot;PQ" value="110" /> <referenceRange> <observationRange> <text>98-110</text> </observationRange> </referenceRange> </ observation> </component> <component> < observation moodCode="EVN" classCode="OBS"> < templateId root="2.16.840.1.708536.10.20.22.4.2" /> < id nullFlavor="NA" /> <code codeSystem="local&quot ; code="AST" displayName="AST/SGOT" /> < statusCode code="completed" /> <effectiveTime value=& quot;878059880710" /> <value unit="Units/L" xsi: type="PQ" value="103" /> <interpretationCode codeSystem="local" code="*" /> < referenceRange> <observationRange> <text> 10-37</text> </observationRange> </ referenceRange> </observation> </component> < component> <observation moodCode="EVN" classCode=" OBS"> <templateId root="2.16.840.1.644066.10.20.22.4.2& quot; /> <id nullFlavor="NA" /> <code codeSystem="local" code="ALT" displayName="ALT/SGPT& quot; /> <statusCodecode="completed" /> &lt ;effectiveTime value="810580822841" /> <value unit=" Units/L" xsi:type="PQ" value="140" />< interpretationCode codeSystem="local" code="*" /> <referenceRange> <observationRange> < text>< 66</text> </observationRange> </ referenceRange> </observation> </component> < component> <observation moodCode="EVN" classCode=" OBS"> <templateId root="2.16.840.1.042901.10.20.22.4.2& quot; /><id nullFlavor="NA" /> <code codeSystem=& quot;local" code="CO2" displayName="CARBON DIOXIDE" /& gt; <statusCode code="completed" /> < effectiveTime value="049633325756" /> <value unit=&quot ;mmol/L" xsi:type="PQ" value="20" /> < interpretationCode codeSystem="local" code="*" /> <referenceRange> <observationRange> < text>21-32</text> </observationRange> </ referenceRange> </observation> </component> < component> <observation moodCode="EVN" classCode=" OBS"> <templateId root="2.16.840.1.034666.10.20.22.4.2& quot; /> <id nullFlavor="NA" /> <code codeSystem="local" code="TP" displayName="TOTAL PROTEIN " /> <statusCode code="completed" /> & lt;effectiveTime value="128221770071" /> <value unit=& quot;gm/dL" xsi:type="PQ"value="5.3" /> &lt ;interpretationCode codeSystem="local" code="*" /> <referenceRange> <observationRange> < text>6.4-8.2</text> </observationRange> </ referenceRange> </observation> </component> < component> <observation moodCode="EVN" classCode=" OBS"> <templateId root="2.16.840.1.501951.10.20.22.4.2& quot; /> <id nullFlavor="NA" /> <code codeSystem="local" code="ALB" displayName="ALBUMIN&quot ; /> <statusCodecode="completed" /> < effectiveTime value="497454629465" /> <value unit="gm/ dL" xsi:type="PQ" value="2.3" /> < interpretationCode codeSystem="local" code="*" /> <referenceRange> <observationRange> < text>3.4-5.0</text> </observationRange> </ referenceRange> </observation> </component> < component> <observation moodCode="EVN" classCode=" OBS"> <templateId root="2.16.840.1.200171.10.20.22.4.2& quot; /> <id nullFlavor="NA" /> <code codeSystem="local" code="BILTOT" displayName="BILI TOTAL" /> <statusCode code="completed" /> <effectiveTime value="533616209016" /> <value unit="mg/dL" xsi:type="PQ" value="1.8" /> <interpretationCode codeSystem="local" code="*" /&gt ; <referenceRange> <observationRange> <text>0.0-1.0</text> </observationRange></ referenceRange> </observation> </component> < component> <observation moodCode="EVN" classCode="OBS& quot;> <templateId root="2.16.840.1.392616.10.20.22.4.2&quot ; /> <id nullFlavor="NA" /> <code codeSystem="local" code="ALKP" displayName="ALKALINE PHOSPHATASE TOTAL" /> <statusCode code="completed&quot ; /> <effectiveTime value="464582778077" /> <value unit="IU/L" xsi:type="PQ" value="121" /> <interpretationCode codeSystem="local" code="*& quot; /> <referenceRange> <observationRange> <text>45-117</text> </observationRange> </referenceRange> </observation> </component> & lt;/organizer> </entry> <entry> <organizer moodCode=&quot ;EVN" classCode="BATTERY"> <templateId root=" 2.16.840.1.579454.10.20.22.4.1" /> <id nullFlavor="NA&quot ; /> <code codeSystem="local" code="MAG" displayName="MAGNESIUM" /> <statusCode code="completed " /> <component> <observationmoodCode="EVN& quot; classCode="OBS"> <templateId root=" 2.16.840.1.761395.10.20.22.4.2" /> <id nullFlavor="NA& quot; /> <code codeSystem="local" code="MAG" displayName="MAGNESIUM" /> <statusCode code=" completed" /> <effectiveTime value="052399911740"/ > <value unit="mg/dL" xsi:type="PQ" value=& quot;1.9" /> <referenceRange> < observationRange> <text>1.8-2.4</text> & lt;/observationRange> </referenceRange> </ observation> </component> </organizer> </entry> & lt;entry> <organizer moodCode="EVN" classCode="BATTERY& quot;> <templateId root="2.16.840.1.807052.10.20.22.4.1" /& gt; <id nullFlavor="NA" /> <code codeSystem=" local" code="CBCD" displayName="CBC W/DIFF" /> <statusCode code="completed" /> <component> & lt;observation moodCode="EVN" classCode="OBS"> & lt;templateId root="2.16.840.1.142300.10.20.22.4.2" /> &lt ;id nullFlavor="NA" /> <code codeSystem="local& quot; code="BUR" displayName="BRENDEN CELLS" /> &lt ;statusCode code="completed" /> <effectiveTime value=& quot;235093819788" /> <value unit="" xsi:type=& quot;PQ" value="NOTED" /> <referenceRange> <observationRange> <text /> </ observationRange> </referenceRange> </observation&gt ; </component> <component> <observation moodCode ="EVN" classCode="OBS"> <templateId root=" 2.16.840.1.390313.10.20.22.4.2" /> <id nullFlavor="NA& quot; /> <code codeSystem="local" code="CBCCOM& quot; displayName="COMMENT" /> <statusCode code=" completed" /> <effectiveTime value="020529890084" /> <value unit="" xsi:type="PQ" value=" REVIEWED" /> <referenceRange> < observationRange> <text /> </ observationRange> </referenceRange> </observation&gt ; </component> <component> <observationmoodCode= "EVN" classCode="OBS"> <templateId root=&quot ;2.16.840.1.968346.10.20.22.4.2" /> <id nullFlavor="NA& quot; /> <code codeSystem="local" code="DB" displayName="DOHLE BODIES" /> <statusCode code=" completed" /> <effectiveTime value="344322001210" /> <value unit="" xsi:type="PQ" value=" NOTED" /> <referenceRange> <observationRange& gt; <text /> </observationRange> </ referenceRange> </observation> </component> < component> <observation moodCode="EVN" classCode=" OBS"> <templateId root="2.16.840.1.870870.10..22.4.2& quot; /><id nullFlavor="NA" /> <code codeSystem=& quot;local" code="EO#" displayName="EOSINOPHIL #" /&gt ; <statusCode code="completed" /> < effectiveTime value="959225754635" /> <value unit=&quot ;k/cumm" xsi:type="PQ" value="0.1" /> < referenceRange> <observationRange> <text>0.1-0.5 </text> </observationRange> </referenceRange& gt; </observation> </component> <component> <observation moodCode="EVN" classCode="OBS"> &lt ;templateId root="2.16.840.1.674036.10..22.4.2" /> < id nullFlavor="NA" /> <code codeSystem="local&quot ; code="EO%" displayName="EOSINOPHIL %" /&gt ; <statusCode code="completed" /> < effectiveTime value="238580700538" /> <value unit=&quot ;%" xsi:type="PQ" value="1" /> < interpretationCode codeSystem="local" code="*" /> <referenceRange> <observationRange> < text>2-4</text> </observationRange> </ referenceRange> </observation> </component> < component> <observation moodCode="EVN" classCode="OBS& quot;> <templateIdroot="2.16.840.1.381934.10.20.22.4.2&quot ; /> <id nullFlavor="NA" /> <code codeSystem="local" code="GR#" displayName="GRANULOCYTE #" /> <statusCode code="completed" /> <effectiveTime value="967432667750" /> <value unit=& quot;k/cumm" xsi:type="PQ" value="9.3" /> & lt;interpretationCode codeSystem="local" code="*" /> <referenceRange> <observationRange> & lt;text>2.0-9.0</text> </observationRange> & lt;/referenceRange></observation> </component> < component> <observation moodCode="EVN" classCode=" OBS"> <templateId root="2.16.840.1.611294.10.20.22.4.2& quot; /> <id nullFlavor="NA" /> <code codeSystem="local" code="GR%" displayName=" GRANULOCYTE %" /> <statusCode code="completed" /> <effectiveTime value="462067396004" /> & lt;value unit="%" xsi:type="PQ" value="86&quot ; /> <interpretationCode codeSystem="local" code=" *" /> <referenceRange> <observationRange> <text>50-75</text> </observationRange> </referenceRange> </observation> </ component> <component> <observation moodCode="EVN& quot; classCode="OBS"> <templateId root=" 216.840.1.471876.10.20.22.4.2"/> <id nullFlavor="NA& quot; /> <code codeSystem="local"code="LY#" displayName="LYMPHOCYTE #" /> <statusCode code=" completed" /> <effectiveTime value="657600099216" /> <value unit="k/cumm" xsi:type="PQ" value=& quot;0.8" /> <interpretationCode codeSystem="local&quot ; code="*" /> <referenceRange> < observationRange> <text>1.0-4.0</text> & lt;/observationRange> </referenceRange> </ observation> </component> <component> < observation moodCode="EVN" classCode="OBS"> < templateId root="2.16.840.1.033790.10.20.22.4.2" /> < id nullFlavor="NA" /> <code codeSystem="local&quot ; code="LY%" displayName="LYMPHOCYTE %" /&gt ; <statusCode code="completed" /> < effectiveTime value="753474137473" /> <value unit=&quot ;%" xsi:type="PQ" value="8" /> < interpretationCode codeSystem="local" code="*" /> <referenceRange> <observationRange> < text>20-30</text> </observationRange> </ referenceRange> </observation> </component> < component> <observation moodCode="EVN" classCode=" OBS"> <templateId root="2.16.840.1.558992.10.20.22.4.2& quot; /> <id nullFlavor="NA" /> <code codeSystem="local" code="MCH" displayName="MEAN CELL HGB" /> <statusCode code="completed" /> <effectiveTime value="932979633458" /> <value unit="pg" xsi:type="PQ" value="30.4" /> <referenceRange> <observationRange> <text> 27.0-33.0</text> </observationRange> </ referenceRange> </observation> </component> < component> <observation moodCode="EVN" classCode=" OBS"> <templateId root="2.16.840.1.368266.10.20.22.4.2& quot; /> <id nullFlavor="NA" /> <code codeSystem="local" code="MCHC" displayName="MEAN CELL HGB CONCENTRATION" /> <statusCode code="completed&quot ; /> <effectiveTime value="179187450363" /> <value unit="g/dL" xsi:type="PQ" value="34.1&quot ; /> <referenceRange> <observationRange> & lt;text>32.0-37.0</text> </observationRange> </referenceRange> </observation> </component> <component> <observation moodCode="EVN" classCode=& quot;OBS"> <templateId root=" 2.16.840.1.840034.10.20.22.4.2" /> <id nullFlavor="NA& quot; /> <code codeSystem="local" code="MCV" displayName="MEAN CELL VOLUME" /> <statusCode code=" completed" /> <effectiveTime value="249131054971" /> <value unit="fl" xsi:type="PQ" value=&quot ;89.0" /> <referenceRange> < observationRange> <text>80.0-100.0</text> </observationRange> </referenceRange> </observation&gt ; </component> <component> <observation moodCode ="EVN" classCode="OBS"> <templateId root=& quot;2.16.840.1.145550.10.20.22.4.2" /> <id nullFlavor=&quot ;NA" /> <code codeSystem="local" code="MO#& quot; displayName="MONOCYTE #" /> <statusCode code=& quot;completed" /> <effectiveTime value="993133338629& quot; /> <value unit="k/cumm" xsi:type="PQ" value="0.5" /> <referenceRange> < observationRange> <text>0.1-1.0</text> & lt;/observationRange> </referenceRange> </ observation> </component> <component> < observation moodCode="EVN" classCode="OBS"> < templateId root="2.16.840.1.693980.10.20.22.4.2" /> < id nullFlavor="NA" /> <code codeSystem="local&quot ; code="MO%" displayName="MONOCYTE %" /> <statusCode code="completed" /> < effectiveTime value="785335344294" /> <value unit="&# 37;" xsi:type="PQ" value="5" /> < referenceRange> <observationRange> <text> 4-6</text> </observationRange> </referenceRange& gt; </observation></component> <component> <observation moodCode="EVN" classCode="OBS"> <templateId root="2.16.840.1.405524.10.20.22.4.2" /> <id nullFlavor="NA" /> <code codeSystem="local" code="MPVT" displayName="MEAN PLATELET VOLUME" /> <statusCode code="completed" /> <effectiveTime value="063604190598" /> <value unit="fl" xsi: type="PQ" value="10.9" /> <referenceRange&gt ; <observationRange> <text>8.5-10.9</text > </observationRange> </referenceRange> </observation> </component> <component> & lt;observation moodCode="EVN" classCode="OBS"> & lt;templateId root="2.16.840.1.539267.10.20.22.4.2" /> &lt ;id nullFlavor="NA" /> <code codeSystem="local& quot; code="OVAL" displayName="OVALOCYTES" /> & lt;statusCode code="completed" /> <effectiveTime value=& quot;671981601795" /> <value unit="" xsi:type=& quot;PQ" value="NOTED" /> <referenceRange> <observationRange> <text /> </ observationRange> </referenceRange> </observation&gt ; </component> <component> <observation moodCode ="EVN" classCode="OBS"> <templateId root=& quot;2.16.840.1.644987.10.20.22.4.2" /> <id nullFlavor=&quot ;NA" /> <code codeSystem="local" code="RBC" displayName="RED BLOOD CELL" /> <statusCode code=" completed" /> <effectiveTime value="072222568655" /> <value unit="m/cumm" xsi:type="PQ" value=& quot;3.72" /> <interpretationCode codeSystem="local& quot; code="*" /> <referenceRange> < observationRange> <text>4.00-6.00</text> </observationRange> </referenceRange> </ observation> </component> <component> < observation moodCode="EVN" classCode="OBS"> < templateId root="2.16.840.1.671623.10.20.22.4.2" /> < id nullFlavor="NA" /> <code codeSystem="local&quot ; code="RDW" displayName="RED CELL DISTRIBUTION WIDTH" /&gt ; <statusCode code="completed" /> < effectiveTime value="268681954415" /> <value unit=&quot ;%" xsi:type="PQ" value="13.7" /> & lt;referenceRange> <observationRange> <text& gt;11.0-15.6</text> </observationRange> </ referenceRange> </observation> </component> < component> <observation moodCode="EVN" classCode=" OBS"> <templateId root="2.16.840.1.816238.10.20.22.4.2& quot; /> <id nullFlavor="NA" /> <code codeSystem="local" code="WBC" displayName="WHITE BLOOD CELL" /> <statusCode code="completed" /> <effectiveTime value="206085810067" /> <value unit="k/cumm" xsi:type="PQ" value="10.7" /> <interpretationCode codeSystem="local" code="*" /> <referenceRange> <observationRange> <text>5.0-10.0</text> </observationRange> < /referenceRange> </observation> </component> &lt ;component> <observation moodCode="EVN" classCode=" OBS"> <templateId root="2.16.840.1.364853.10.20.22.4.2& quot; /> <id nullFlavor="NA" /> <code codeSystem ="local" code="HGBT" displayName="HEMOGLOBIN" /&gt ; <statusCode code="completed"/> < effectiveTime value="717078411685" /> <value unit=&quot ;gm/dL" xsi:type="PQ" value="11.3" /> < interpretationCode codeSystem="local" code="*" /> <referenceRange> <observationRange> < text>14.0-18.0</text> </observationRange> < /referenceRange> </observation> </component> &lt ;component> <observation moodCode="EVN" classCode=" OBS"> <templateId root="2.16.840.1.523697.10.20.22.4.2& quot; /> <id nullFlavor="NA" /> <code codeSystem="local" code="HCTT" displayName="HEMATOCRIT& quot; /> <statusCode code="completed" /> & lt;effectiveTime value="076455612906" /> <value unit=& quot;%" xsi:type="PQ" value="33.1" /> <interpretationCode codeSystem="local" code="*" /&gt ; <referenceRange> <observationRange> <text& gt;40.0-54.0</text> </observationRange> </ referenceRange> </observation> </component> < component> <observation moodCode="EVN" classCode=" OBS"> <templateId root="2.16.840.1.647883.10.20.22.4.2& quot; /> <id nullFlavor="NA" /> <code codeSystem="local" code="PLTT" displayName="PLATELET COUNT" /> <statusCode code="completed" /> &lt ;effectiveTime value="109749739403" /> <value unit=& quot;k/cumm" xsi:type="PQ" value="97" /> & lt;interpretationCode codeSystem="local" code="*" /> < referenceRange> <observationRange> <text> 150-400</text> </observationRange> </ referenceRange> </observation> </component> </ organizer> </entry> <entry> <organizer moodCode="EVN " classCode="BATTERY"> <templateId root=" 2.16.840.1.549103.10.20.22.4.1" /> <id nullFlavor="NA&quot ; /> <code codeSystem="local" code="HGB" displayName="HEMOGLOBIN" /> <statusCode code=" completed" /> <component> <observation moodCode=& quot;EVN" classCode="OBS"> <templateId root=" 2.16.840.1.953667.10.20.22.4.2" /> <id nullFlavor="NA& quot; /> <code codeSystem="local" code="MCV" displayName="MEAN CELL VOLUME" /> <statusCode code=& quot;completed" /> <effectiveTime value="808526869928& quot; /> <value unit="fl" xsi:type="PQ" value ="91.4" /> <referenceRange> < observationRange> <text>80.0-100.0</text> </ observationRange> </referenceRange> </observation&gt ; </component> <component> <observation moodCode ="EVN" classCode="OBS"> <templateId root=& quot;2.16.840.1.299040.10.20.22.4.2" /> <id nullFlavor=&quot ;NA" /> <code codeSystem="local" code="HGBT& quot; displayName="HEMOGLOBIN" /> <statusCode code=& quot;completed" /> <effectiveTime value="070942215359& quot; /> <value unit="gm/dL" xsi:type="PQ" value="13.8" /> <interpretationCode codeSystem=" local" code="*" /> <referenceRange> <observationRange> <text>14.0-18.0</text> </observationRange> </referenceRange> </ observation> </component> </organizer> </entry> & lt;entry> <organizer moodCode="EVN" classCode="BATTERY& quot;> <templateId root="2.16.840.1.914203.10.20.22.4.1" /& gt; <id nullFlavor="NA" /> <code codeSystem=" local" code="K" displayName="POTASSIUM" /> < statusCode code="completed" /> <component> < observation moodCode="EVN" classCode="OBS"> < templateId root="2.16.840.1.668866.10..22.4.2" /> < id nullFlavor="NA" /> <code codeSystem="local&quot ; code="K" displayName="POTASSIUM" /> < statusCode code="completed" /> <effectiveTime value=& quot;065848317172" /> <value unit="mmol/L" xsi: type="PQ" value="4.6" /> <referenceRange> <observationRange> <text>3.5-5.3</text> </observationRange> </referenceRange> </ observation> </component> </organizer> </entry> & lt;entry> <organizer moodCode="EVN" classCode="BATTERY& quot;> <templateId root="2.16.840.1.951554.10.20.22.4.1" /& gt; <id nullFlavor="NA" /> <code codeSystem=" local" code="HGB" displayName="HEMOGLOBIN" /> & lt;statusCode code="completed" /> <component> &lt ;observation moodCode="EVN" classCode="OBS"> &lt ;templateId root="2.16.840.1.763480.10..22.4.2" /> < id nullFlavor="NA" /> <codecodeSystem="local&quot ; code="MCV" displayName="MEAN CELL VOLUME" /> < statusCode code="completed" /> <effectiveTime value=& quot;875430407071" /> <value unit="fl" xsi:type=& quot;PQ" value="91.4" /> <referenceRange> <observationRange> <text>80.0-100.0</text&gt ; </observationRange> </referenceRange> & lt;/observation> </component> <component> < observation moodCode="EVN" classCode="OBS"> < templateId root="2.16.840.1.075574.10..22.4.2" /> < id nullFlavor="NA" /> <code codeSystem="local&quot ; code="HGBT" displayName="HEMOGLOBIN" /> < statusCode code="completed" /> <effectiveTime value=& quot;892041907551" /> <value unit="gm/dL" xsi:type=& quot;PQ" value="13.8" /><interpretationCode codeSystem=& quot;local" code="*" /> <referenceRange> <observationRange> <text>14.0-18.0</text> </observationRange> </referenceRange> </ observation> </component> </organizer> </entry> & lt;entry> <organizer moodCode="EVN" classCode="BATTERY& quot;> <templateId root="2.16.840.1.962982.10.20.22.4.1" /& gt; <id nullFlavor="NA" /> <code codeSystem=" local" code="K" displayName="POTASSIUM" /> < statusCode code="completed" /> <component> < observation moodCode="EVN" classCode="OBS"> < templateId root="2.16.840.1.432773.10.20.22.4.2" /> < id nullFlavor="NA" /> <code codeSystem="local&quot ; code="K"displayName="POTASSIUM" /> < statusCode code="completed" /> <effectiveTime value=" 885219944598" /> <value unit="mmol/L" xsi:type=& quot;PQ" value="4.6" /> <referenceRange> <observationRange> <text>3.5-5.3</text> </observationRange> </referenceRange> </ observation> </component> </organizer> </entry> & lt;entry> <organizer moodCode="EVN" classCode="BATTERY& quot;> <templateId root="2.16.840.1.129660.10.20.22.4.1" /& gt; <idnullFlavor="NA" /> <code codeSystem=" local" code="HOWARD-MK" displayName="L200.0113" /> <statusCode code="completed" /> <component> <observation moodCode="EVN" classCode="OBS"> <templateId root="2.16.840.1.527935.10.20.22.4.2" /> & lt;id nullFlavor="NA" /> <code codeSystem="local& quot; code="200.0152" displayName="Specimen Type, Urine - MK&quot ; /> <statusCode code="completed" /> < effectiveTime value="480293417832" /> <value unit=&quot ;" xsi:type="PQ" value="Urine, Clean Catch" /> <referenceRange> <observationRange> < text>NRG</text> </observationRange> </ referenceRange> </observation> </component>< component> <observation moodCode="EVN" classCode=" OBS"> <templateId root="2.16.840.1.010427.10.20.22.4.2" /> <id nullFlavor="NA" /> <code codeSystem="local" code="200.0202" displayName="Color, Urine - MK" /> <statusCode code="completed" /> <effectiveTime value="101115796606" /> <value unit="" xsi:type="PQ" value="YELLOW" /> <referenceRange> <observationRange> < text>YELLOW</text> </observationRange> </ referenceRange> </observation> </component> < component> <observation moodCode="EVN" classCode=" OBS"> <templateId root="2.16.840.1.443313.10..22.4.2& quot; /> <id nullFlavor="NA" /> <code codeSystem="local" code="200.0302" displayName="Clarity ,Urine - MK" /> <statusCode code="completed" /&gt ; <effectiveTime value="340025072440" /> < value unit="" xsi:type="PQ" value="CLEAR" /> <referenceRange> <observationRange> <text>NRG</text> </observationRange> </ referenceRange> </observation> </component> < component> <observation moodCode="EVN" classCode=" OBS"> <templateId root="2.16.840.1.735263.10..22.4.2& quot; /> <id nullFlavor="NA" /> <code codeSystem ="local" code="200.0327" displayName="Specific [place], Urine - MK" /> <statusCode code="completed" /> <effectiveTime value="540082532572" /> < value unit="" xsi:type="PQ" value=">=1.030&quot ; /> <interpretationCode codeSystem="local" code=" *" /> <referenceRange> <observationRange&gt ; <text>1.015-1.025</text> </observationRange&gt ; </referenceRange> </observation> </ component> <component> <observation moodCode="EVN& quot; classCode="OBS"> <templateId root=" 2.16.840.1.398526.10.20.22.4.2" /> <id nullFlavor="NA& quot; /> <code codeSystem="local" code="200.0352& quot; displayName="PH,Urine - MK" /> <statusCode code=& quot;completed" /> <effectiveTime value="720087224421& quot; /> <value unit="" xsi:type="PQ" value=& quot;7.0" /> <referenceRange> < observationRange> <text>5.0-8.0</text> & lt;/observationRange> </referenceRange> </observation> </component> <component> <observation moodCode= "EVN" classCode="OBS"> <templateId root=&quot ;2.16.840.1.608977.10.20.22.4.2" /> <id nullFlavor="NA& quot; /> <code codeSystem="local" code="200.0412& quot; displayName="Leukocyte Esterase,Urine - MK" /> < statusCode code="completed" /> <effectiveTime value=& quot;299400495501" /> <value unit="" xsi:type=& quot;PQ" value="NEGATIVE" /> <referenceRange> <observationRange> <text>NEGATIVE</text& gt; </observationRange> </referenceRange> & lt;/observation> </component> <component> < observation moodCode="EVN" classCode="OBS"> < templateId root="2.16.840.1.020472.10.20.22.4.2" /> < id nullFlavor="NA" /> <code codeSystem="local&quot ; code="200.0422" displayName="Nitrate,Urine - MK" /> <statusCode code="completed" /> <effectiveTime value="537426779949" /> <value unit="" xsi: type="PQ" value="NEGATIVE" /> <referenceRange > <observationRange> <text>NEGATIVE</ text> </observationRange> </referenceRange> </observation> </component> <component> <observation moodCode="EVN" classCode="OBS"> <templateId root="2.16.840.1.960568.10.20.22.4.2" /> <id nullFlavor="NA" /> <code codeSystem=" local" code="200.0452" displayName="Protein,Urine - Dipstick - MK" /> <statusCode code="completed" /&gt ; <effectiveTime value="670484507038" /> < value unit="" xsi:type="PQ" value="NEGATIVE" /&gt ; <referenceRange> <observationRange> <text>NEGATIVE</text> </observationRange> </referenceRange> </observation> </component> <component> <observation moodCode="EVN" classCode=& quot;OBS"> <templateId root=" 2.16.840.1.355820.10.20.22.4.2" /> <id nullFlavor="NA& quot; /> <code codeSystem="local" code="200.0502& quot; displayName="Glucose,Urine - Dipstick - MK" /> < statusCode code="completed" /> <effectiveTime value=& quot;503245908777" /> <value unit="" xsi:type=& quot;PQ" value="NEGATIVE" /> <referenceRange> <observationRange> <text>NEGATIVE</text& gt; </observationRange> </referenceRange> </observation> </component> <component> < observation moodCode="EVN" classCode="OBS"> < templateId root="2.16.840.1.006274.10.20.22.4.2" /> < id nullFlavor="NA" /> <code codeSystem="local&quot ; code="200.0602" displayName="Ketones,Urine - Dipstick - MK&quot ; /> <statusCode code="completed" /> < effectiveTime value="875390682681" /> <value unit=&quot ;" xsi:type="PQ" value="NEGATIVE" /> < referenceRange> <observationRange> <text>NEGATIVE</ text> </observationRange> </referenceRange> </observation> </component> <component> <observation moodCode="EVN" classCode="OBS"> <templateId root="2.16.840.1.164524.10..22.4.2" /> <id nullFlavor="NA" /> <code codeSystem=" local" code="200.0742" displayName="Urobilinogen,Urine - MK& quot;/> <statusCode code="completed" /> &lt ;effectiveTime value="890785146888" /> <value unit=& quot;EU/DL" xsi:type="PQ" value="0.2" /> & lt;referenceRange> <observationRange> <text& gt;NORMAL</text> </observationRange> </ referenceRange> </observation> </component> < component> <observation moodCode="EVN" classCode=" OBS"> <templateId root="2.16.840.1.302290.10.20.22.4.2& quot; /> <id nullFlavor="NA" /> <code codeSystem="local" code="200.0752" displayName=" Bilirubin,Urine - Dipstick -MK" /> <statusCode code=" completed" /> <effectiveTime value="239792978914" /> <value unit="" xsi:type="PQ" value=" NEGATIVE" /> <referenceRange> < observationRange> <text>NEGATIVE</text> </ observationRange> </referenceRange> </observation&gt ; </component> <component> <observation moodCode ="EVN" classCode="OBS"> <templateId root=& quot;2.16.840.1.377270.10.20.22.4.2" /> <id nullFlavor=&quot ;NA" /> <code codeSystem="local" code=" 200.0827" displayName="Occult Blood,Uvsea-Tawutqsz-KF" /> <statusCode code="completed" /> < effectiveTime value="444297026767" /> <value unit=&quot ;" xsi:type="PQ" value="NEGATIVE" /> < referenceRange> <observationRange> <text> NEGATIVE</text> </observationRange> </ referenceRange> </observation> </component> < component> <observation moodCode="EVN" classCode=" OBS"> <templateId root="2.16.840.1.816567.10.20.22.4.2& quot; /> <id nullFlavor="NA" /> <code codeSystem="local" code="200.0993" displayName="Urine Microscopic (UA-MK)" /> <statusCode code="completed& quot; /> <effectiveTime value="526836034249" /> <value unit="" xsi:type="PQ" value=" Microscopic Not Ind." /> <referenceRange> < observationRange> <text>NRG</text> </ observationRange> </referenceRange> </observation&gt ; </component> </organizer> </entry> <entry> <organizer moodCode="EVN" classCode="BATTERY"> < templateId root="2.16.840.1.911599.10.20.22.4.1" /> <id nullFlavor="NA" /> <code codeSystem="local" code= "LCBC-A" displayName="L749.1001" /> <statusCode code="completed" /> <component> <observation moodCode ="EVN" classCode="OBS"> <templateId root=& quot;[id number]" /> <id nullFlavor=&quot ;NA" /> <code codeSystem="local" code="902.4012& quot; displayName="White Blood Count" /> <statusCode code="completed" /> <effectiveTime value=" [id number]" /> <value unit="K/uL" xsi:type=&quot ;PQ"value="5.6" /> <referenceRange> <observationRange> <text>4.8-10.8</text> &lt ;/observationRange> </referenceRange> </observation& gt; </component> <component> <observation moodCode="EVN" classCode="OBS"> <templateId root="[id number]" /> <id nullFlavor ="NA" /> <code codeSystem="local" code=" 902.4014" displayName="RBC" /> <statusCode code=" completed" /> <effectiveTime value="025091839222" /> <value unit="10*6/uL" xsi:type="PQ" value= "4.47" /> <interpretationCode codeSystem="local& quot; code="*" /> <referenceRange> < observationRange> <text>4.60-6.20</text> </observationRange> </referenceRange> </ observation> </component> <component> < observation moodCode="EVN"classCode="OBS"> < templateId root="2.16.840.1.558203.10.20.22.4.2" /> < id nullFlavor="NA" /> <code codeSystem="local&quot ; code="902.4015" displayName="Hemoglobin" /> & lt;statusCode code="completed" /> <effectiveTime value= "552747517763" /> <value unit="g/dL" xsi:type ="PQ" value="13.5" /> <interpretationCode codeSystem="local" code="*" /> < referenceRange> <observationRange> <text>14.0 -18.0</text> </observationRange> </ referenceRange> </observation> </component> < component> <observation moodCode="EVN" classCode=" OBS"> <templateId root="2.16.840.1.756956.10.20.22.4.2& quot; /> <id nullFlavor="NA" /> <code codeSystem="local" code="902.4016" displayName=" Hematocrit" /> <statusCode code="completed" /> <effectiveTime value="066792066385" /> <value unit="%" xsi:type="PQ" value="42.3" /> <referenceRange> <observationRange> <text>42.0-52.0</text> </observationRange> </referenceRange> </observation> </component&gt ; <component> <observation moodCode="EVN" classCode="OBS"> <templateId root=" 2.16.840.1.180473.10.20.22.4.2" /> <id nullFlavor="NA& quot; /> <code codeSystem="local" code="902.4017& quot; displayName="MCV" /> <statusCode code=" completed" /> <effectiveTime value="138522774561" /> <value unit="fL" xsi:type="PQ" value=&quot ;94.6" /> <referenceRange> < observationRange> <text>82.0-99.0</text> </observationRange> </referenceRange> </ observation> </component> <component> < observation moodCode="EVN" classCode="OBS"> < templateId root="2.16.840.1.747253.10.20.22.4.2" /> < id nullFlavor="NA" /> <code codeSystem="local" code= "902.4018" displayName="MCH" /> <statusCode code="completed" /> <effectiveTime value=" 398729969898" /> <value unit="pg" xsi:type=" PQ" value="30.2" /> <referenceRange> <observationRange> <text>27.0-32.0</text> </observationRange> </referenceRange> </ observation> </component> <component> < observation moodCode="EVN" classCode="OBS"> < templateId root="2.16.840.1.007219.10.20.22.4.2" /> < id nullFlavor="NA" /> <code codeSystem="local&quot ; code="902.4019" displayName="MCHC" /> < statusCode code="completed" /> <effectiveTime value=& quot;222554992449" /> <value unit="g/dL" xsi:type=& quot;PQ" value="31.9" /><interpretationCode codeSystem=& quot;local" code="*" /> <referenceRange> <observationRange> <text>32.0-36.0</text> </observationRange> </referenceRange> </ observation> </component> <component> < observation moodCode="EVN" classCode="OBS"> < templateId root="2.16.840.1.297608.10.20.22.4.2" /> < id nullFlavor="NA" /> <code codeSystem="local&quot ; code="902.4020" displayName="RDW" /> < statusCode code="completed" /> <effectiveTime value=&quot ;814926607801" /> <value unit="%" xsi:type ="PQ" value="14.1" /> <referenceRange> & lt;observationRange> <text>11.5-14.5</text> </observationRange> </referenceRange> </ observation> </component> <component> < observation moodCode="EVN" classCode="OBS"> < templateId root="2.16.840.1.635205.10.20.22.4.2" /> < id nullFlavor="NA" /> <code codeSystem="local&quot ; code="902.4022" displayName="MPV" /> < statusCode code="completed" /> <effectiveTime value=& quot;641408994231" /> <value unit="fL" xsi:type=& quot;PQ" value="10.2" /> <referenceRange> <observationRange> <text>8.8-14.8</text> </observationRange> </referenceRange> &lt ;/observation> </component> <component> < observation moodCode="EVN" classCode="OBS"> < templateId root="2.16.840.1.262323.10..22.4.2" /> < id nullFlavor="NA" /> <code codeSystem="local" code="902.4023" displayName="Platelet Count" /> <statusCode code="completed" /> <effectiveTime value ="443191753166" /> <value unit="K/uL" xsi: type="PQ" value="206" /> <referenceRange> <observationRange> <text>150-400</text> </observationRange> </referenceRange> </ observation> </component> <component> < observation moodCode="EVN" classCode="OBS"> < templateId root="2.16.840.1.695814.10.20.22.4.2" /> < id nullFlavor="NA" /> <code codeSystem="local&quot ; code="902.4024" displayName="Immature Granulocytes %& quot; /> <statusCode code="completed" /> & lt;effectiveTime value="995405878300" /> <value unit=& quot;%" xsi:type="PQ" value="0.4" /> <referenceRange> <observationRange> < text>0.0-1.0</text> </observationRange> </ referenceRange> </observation> </component> < component> <observation moodCode="EVN" classCode=" OBS"> <templateId root="2.16.840.1.491048.10.20.22.4.2& quot; /> <id nullFlavor="NA" /> <code codeSystem ="local" code="902.4025" displayName="Neutrophils & #37;" /> <statusCode code="completed" /> <effectiveTimevalue="795792208591" /> <value unit="%" xsi:type="PQ" value="60" /> <referenceRange> <observationRange> & lt;text>51-75</text> </observationRange> < /referenceRange> </observation> </component> &lt ;component> <observation moodCode="EVN" classCode=" OBS"> <templateId root="2.16.840.1.224810.10.20.22.4.2& quot; /> <id nullFlavor="NA" /> <code codeSystem="local" code="902.4026" displayName=" Lymphocytes %" /> <statusCode code="completed& quot; /> <effectiveTime value="078609263018" /> <value unit="%" xsi:type="PQ" value=" 26" /> <referenceRange> <observationRange& gt; <text>20-46</text> </observationRange> </referenceRange> </observation> </ component> <component> <observation moodCode="EVN& quot; classCode="OBS"> <templateId root=" 2.16.840.1.048723.10.20.22.4.2" /> <id nullFlavor="NA& quot; /> <code codeSystem="local" code="902.4027& quot; displayName="Monocytes %" /> <statusCode code="completed" /> <effectiveTime value=" 386779263612" /> <value unit="%" xsi:type= "PQ" value="11" /> <referenceRange> <observationRange> <text>4-11</text> </ observationRange> </referenceRange> </observation&gt ; </component> <component> <observation moodCode ="EVN" classCode="OBS"> <templateId root=& quot;2.16.840.1.984246.10.20.22.4.2" /> <id nullFlavor=&quot ;NA" /> <code codeSystem="local" code=" 902.4028" displayName="Basophils %" /> < statusCode code="completed" /> <effectiveTime value=& quot;874870405732" /> <value unit="%" xsi: type="PQ" value="1" /> <referenceRange> <observationRange> <text>0-2</text> </observationRange> </referenceRange></ observation> </component> <component> < observation moodCode="EVN" classCode="OBS"> < templateId root="2.16.840.1.958619.10.20.22.4.2" /> < id nullFlavor="NA" /> <code codeSystem="local&quot ; code="902.4029" displayName="Eosinophils %" /> <statusCode code="completed" /> <effectiveTime value="810838563882" /> <value unit="%& quot; xsi:type="PQ" value="3" /> < referenceRange> <observationRange> <text> 0-4</text> </observationRange> </ referenceRange> </observation> </component> < component> <observation moodCode="EVN" classCode=" OBS"> <templateId root="2.16.840.1.436289.10.20.22.4.2& quot; /> <id nullFlavor="NA" /> <code codeSystem="local" code="902.4030" displayName=" Absolute Neutrophils" /> <statusCode code="completed& quot; /> <effectiveTime value="299016769917" /> <value unit="10*3/uL" xsi:type="PQ" value=" 3.31" /> <referenceRange> <observationRange > <text>1.90-7.00</text> </ observationRange> </referenceRange> </observation&gt ; </component> <component> <observation moodCode ="EVN" classCode="OBS"> <templateId root=& quot;2.16.840.1.911346.10.20.22.4.2" /> <id nullFlavor=&quot ;NA" /> <code codeSystem="local" code=" 902.4031" displayName="Absolute Lymphocytes" /> < statusCode code="completed" /> <effectiveTime value=& quot;451756705437" /> <value unit="10*3/uL" xsi: type="PQ" value="1.45" /> <referenceRange> <observationRange> <text>0.80-3.30</text > </observationRange> </referenceRange> </observation> </component> <component> & lt;observation moodCode="EVN" classCode="OBS"> & lt;templateId root="2.16.840.1.649388.10.20.22.4.2" /> &lt ;id nullFlavor="NA" /> <code codeSystem="local& quot; code="902.4032" displayName="Absolute Monocytes" /&gt ; <statusCode code="completed" /> < effectiveTime value="697502401267" /> <value unit=&quot ;10*3/uL" xsi:type="PQ" value="0.61" /> < referenceRange> <observationRange> <text> 0.30-1.00</text> </observationRange> </ referenceRange> </observation> </component> < component> <observation moodCode="EVN" classCode=" OBS"> <templateId root="2.16.840.1.002273.10.20.22.4.2& quot; /> <id nullFlavor="NA" /> <code codeSystem="local" code="902.4033" displayName=" Absolute Eosinophils" /> <statusCode code="completed& quot; /> <effectiveTime value="458340363139" /> <value unit="10*3/uL" xsi:type="PQ" value="0.14 " /> <referenceRange> <observationRange> <text>0.00-0.50</text> </observationRange&gt ; </referenceRange> </observation> </ component> <component> <observation moodCode="EVN& quot; classCode="OBS"> <templateId root=" 2.16.840.1.768351.10..22.4.2" /> <id nullFlavor="NA& quot; /> <code codeSystem="local" code="902.4034& quot; displayName="Absolute Basophils" /> <statusCode code="completed" /> <effectiveTime value=" 654491664699" /> <value unit="10*3/uL" xsi:type=" PQ" value="0.03" /> <referenceRange> < observationRange> <text>0.00-0.20</text> </observationRange> </referenceRange> </ observation> </component> </organizer> </entry> & lt;entry> <organizer moodCode="EVN" classCode="BATTERY& quot;> <templateId root="2.16.840.1.029421.10.20.22.4.1" /& gt; <id nullFlavor="NA" /> <code codeSystem=" local" code="LCMP-A" displayName="L749.2000" /> <statusCode code="completed" /> <component> <observation moodCode="EVN" classCode="OBS"> <templateId root="2.16.840.1.982888.10.20.22.4.2" /> & lt;id nullFlavor="NA" /> <code codeSystem="local& quot; code="908.3031" displayName="NA - Sodium - AMS" /> <statusCodecode="completed" /> < effectiveTime value="735844859127" /> <value unit="mEq/ L" xsi:type="PQ" value="137" /> < referenceRange> <observationRange> <text> 135-144</text> </observationRange> </ referenceRange> </observation> </component> < component> <observation moodCode="EVN" classCode=" OBS"> <templateId root="2.16.840.1.733338.10.20.22.4.2& quot; /> <id nullFlavor="NA" /> <code codeSystem="local" code="908.3033" displayName=" Potassium - AMS" /> <statusCode code="completed" / > <effectiveTime value="090463097188" /> & lt;value unit="mEq/L" xsi:type="PQ" value="5.6" /& gt; <interpretationCode codeSystem="local" code="*& quot; /> <referenceRange> <observationRange> <text>3.5-5.2</text> </observationRange> </referenceRange> </observation> </component& gt; <component> <observation moodCode="EVN" classCode ="OBS"> <templateId root=" 2.16.840.1.989947.10.20.22.4.2" /> <id nullFlavor="NA& quot; /> <code codeSystem="local" code="908.3035& quot; displayName="Chloride- AMS" /> <statusCode code=& quot;completed" /> <effectiveTime value="090268008429" /& gt; <value unit="mEq/L" xsi:type="PQ" value=& quot;104" /> <referenceRange> < observationRange> <text>99-111</text> &lt ;/observationRange> </referenceRange> </observation&gt ; </component> <component> <observation moodCode ="EVN" classCode="OBS"> <templateId root=& quot;2.16.840.1.871628.10.20.22.4.2" /> <id nullFlavor=&quot ;NA" /> <code codeSystem="local" code=" 908.3037" displayName="CO2 - Carbon Dioxide-AMS" /> & lt;statusCode code="completed" /><effectiveTime value=" 669440032349" /> <value unit="mEq/L" xsi:type=& quot;PQ" value="25" /> <referenceRange> <observationRange> <text>23-31</text> </observationRange> </referenceRange> </ observation> </component> <component> < observation moodCode="EVN" classCode="OBS"> < templateId root="2.16.840.1.164029.10.20.22.4.2" /> < id nullFlavor="NA" /> <code codeSystem="local&quot ; code="908.3039" displayName="Anion Gap - AMS" /> <statusCode code="completed" /> <effectiveTime value="972758810034" /> <value unit="mEq/L" xsi:type="PQ" value="8" /> <referenceRange&gt ; <observationRange> <text>3-20</text> </observationRange> </referenceRange> &lt ;/observation> </component> <component> < observation moodCode="EVN" classCode="OBS"> < templateId root="2.16.840.1.518978.10.20.22.4.2" /> < id nullFlavor="NA" /> <code codeSystem="local&quot ; code="908.3041" displayName="BUN - Blood Urea Nitrogen -AMS& quot; /> <statusCode code="completed" /> & lt;effectiveTime value="635954542455" /> <value unit=& quot;mg/dL" xsi:type="PQ" value="20" /> &lt ;referenceRange> <observationRange> <text>8 -26</text> </observationRange> </ referenceRange> </observation> </component> < component> <observation moodCode="EVN" classCode=" OBS"> <templateId root="2.16.840.1.203845.10.20.22.4.2& quot; /> <id nullFlavor="NA" /> <code codeSystem="local" code="908.3043" displayName=" Creatinine - AMS"/> <statusCode code="completed" / > <effectiveTime value="735217077498" /> & lt;value unit="mg/dL" xsi:type="PQ" value="0.90" / > <referenceRange> <observationRange><text >0.72-1.25</text> </observationRange> </ referenceRange> </observation> </component> < component> <observation moodCode="EVN" classCode=" OBS"> <templateId root="2.16.840.1.881863.10.20.22.4.2& quot; /> <id nullFlavor="NA" /> <code codeSystem="local" code="908.3045" displayName=" Glomerular Filtration Rate-AMS" /> <statusCode code=" completed" /> <effectiveTime value="504657192091" /> <value unit="mL/min" xsi:type="PQ" value=& quot;> 60" /> <referenceRange> < observationRange> <text>>60</text> </observationRange> </referenceRange> </ observation> </component> <component> <observation moodCode="EVN" classCode="OBS"> <templateId root="2.16.840.1.705244.10..22.4.2" /> <id nullFlavor ="NA" /> <code codeSystem="local" code=" 908.3047" displayName="Glucose - AMS" /> < statusCode code="completed" /> <effectiveTime value=& quot;347414856862" /> <value unit="mg/dL" xsi:type ="PQ" value="88" /> <referenceRange> <observationRange> <text>70-99</text> &lt ;/observationRange> </referenceRange> </observation& gt; </component> <component> <observation moodCode="EVN" classCode="OBS"> <templateId root="2.16.840.1.047770.10.20.22.4.2" /> <id nullFlavor ="NA" /> <code codeSystem="local" code=" 908.3054" displayName="Calcium - AMS" /> <statusCode code="completed" /> <effectiveTime value=" 393069823311" /> <value unit="mg/dL" xsi:type=& quot;PQ" value="9.0" /> <referenceRange> <observationRange> <text>8.4-10.2</text> </observationRange> </referenceRange> < /observation> </component> <component> < observation moodCode="EVN" classCode="OBS"> < templateId root="2.16.840.1.368716.10.20.22.4.2" /> < id nullFlavor="NA" /> <code codeSystem="local&quot ; code="908.3072" displayName="Bilirubin,Total - AMS" /> <statusCode code="completed" /> <effectiveTime value ="775335565884" /> <value unit="mg/dL" xsi: type="PQ" value="1.6" /> <interpretationCode codeSystem="local" code="*" /> < referenceRange> <observationRange> <text> 0.2-1.2</text> </observationRange> </ referenceRange> </observation> </component> < component> <observation moodCode="EVN" classCode=" OBS"> <templateId root="2.16.840.1.560536.10.20.22.4.2& quot; /> <id nullFlavor="NA" /> <code codeSystem="local" code="908.3078" displayName=" Alkaline Phosphatase - AMS" /> <statusCode code=" completed" /> <effectiveTime value="367482623419" /> <value unit="U/L" xsi:type="PQ" value=" 117" /> <referenceRange> <observationRange& gt; <text>40-150</text> </observationRange > </referenceRange> </observation> </ component> <component> <observation moodCode="EVN& quot; classCode="OBS"> <templateId root=" 2.16.840.1.920589.10.20.22.4.2" /> <id nullFlavor="NA&quot ; /> <code codeSystem="local" code="908.3080&quot ; displayName="AST - Aspartate Amino Transfer" /> < statusCode code="completed" /> <effectiveTime value=& quot;287289484114" /> <value unit="U/L" xsi:type=& quot;PQ" value="25" /> <referenceRange> <observationRange> <text>5-34</text> </observationRange> </referenceRange> </ observation></component> <component> <observation moodCode="EVN" classCode="OBS"> <templateId root="2.16.840.1.171152.10.20.22.4.2" /> <id nullFlavor=& quot;NA" /> <code codeSystem="local" code=" 908.3082" displayName="ALT - AMS" /> <statusCode code="completed" /> <effectiveTime value=" 133638616665" /> <value unit="U/L" xsi:type=" PQ" value="29" /> <referenceRange> < observationRange> <text>0-55</text> </ observationRange> </referenceRange> </observation&gt ; </component> <component> <observation moodCode=& quot;EVN" classCode="OBS"> <templateId root=" 2.16.840.1.470973.10.20.22.4.2" /> <id nullFlavor="NA& quot; /> <code codeSystem="local" code="908.3084& quot; displayName="TP - Total Protein - AMS" /> < statusCode code="completed" /> <effectiveTime value=& quot;117027384208" /> <value unit="g/dL" xsi:type= "PQ" value="6.4" /> <referenceRange> < observationRange> <text>6.0-7.6</text> & lt;/observationRange> </referenceRange> </ observation> </component> <component> < observation moodCode="EVN" classCode="OBS"> < templateId root="2.16.840.1.340704.10.20.22.4.2" /> < id nullFlavor="NA" /> <code codeSystem="local&quot ; code="908.3086" displayName="Albumin Level - AMS" /> <statusCode code="completed" /> <effectiveTime value="704818130300" /> <value unit="g/dL"xsi :type="PQ" value="3.9" /> <referenceRange&gt ; <observationRange> <text>3.4-4.8</text& gt; </observationRange> </referenceRange> </observation> </component> <component> &lt ;observation moodCode="EVN" classCode="OBS"> &lt ;templateId root="2.16.840.1.325591.10.20.22.4.2" /> < id nullFlavor="NA" /> <code codeSystem="local&quot ; code="908.3088" displayName="Globulin - AMS" /> <statusCode code="completed" /> <effectiveTime value="175361657691" /> <value unit="g/dL" xsi:type="PQ" value="2.5" /> <referenceRange& gt; <observationRange> <text>1.8-4.0</ text> </observationRange> </referenceRange> </observation> </component> </organizer> </ entry> <entry> <organizer moodCode="EVN" classCode=& quot;BATTERY"> <templateId root=" 2.16.840.1.481678.10.20.22.4.1" /> <id nullFlavor="NA&quot ; /> <code codeSystem="local" code="LLIPID-A" displayName="L908.3120" /> <statusCode code="completed " /> <component> <observation moodCode="EVN& quot; classCode="OBS"> <templateId root=" 2.16.840.1.301008.10.20.22.4.2" /> <id nullFlavor="NA& quot; /> <code codeSystem="local" code="908.3122& quot; displayName="Triglycerides - AMS" /> <statusCode code="completed" /> <effectiveTime value=" 531587725381" /> <value unit="mg/dL" xsi:type=& quot;PQ" value="109" /> <referenceRange> <observationRange> <text>0-149</text> </observationRange> </referenceRange> </ observation> </component> <component> < observation moodCode="EVN" classCode="OBS"> < templateId root="2.16.840.1.943307.10.20.22.4.2" /> < id nullFlavor="NA" /> <code codeSystem="local" code=& quot;908.3124" displayName="Cholesterol - AMS" /> &lt ;statusCode code="completed" /> <effectiveTime value=& quot;500030657887" /> <value unit="mg/dL" xsi:type ="PQ" value="187" /> <referenceRange> <observationRange> <text>0-199</text> </observationRange> </referenceRange> </ observation> </component> <component> < observation moodCode="EVN" classCode="OBS"> < templateId root="2.16.840.1.740116.10.20.22.4.2" /> < id nullFlavor="NA" /> <codecodeSystem="local&quot ; code="908.3130" displayName="HDL Cholesterol, Direct - AMS&quot ; /> <statusCode code="completed" /> < effectiveTime value="298891171770" /> <value unit=&quot ;mg/dL" xsi:type="PQ" value="50" /> < referenceRange> <observationRange> <text>40-84&lt ;/text> </observationRange> </referenceRange&gt ; </observation> </component> <component> <observation moodCode="EVN" classCode="OBS"> <templateId root="2.16.840.1.553038.10.20.22.4.2" /> <id nullFlavor="NA" /> <codecodeSystem=" local" code="908.3132" displayName="Cardiac Risk - Ratio - AMS" /> <statusCode code="completed" /> <effectiveTime value="484539531361" /> <value unit="" xsi:type="PQ" value="3.7" /> & lt;referenceRange> <observationRange> <text& gt;0.0-5.7</text> </observationRange> </ referenceRange> </observation> </component> < component> <observation moodCode="EVN" classCode=" OBS"> <templateId root="2.16.840.1.597522.10.20.22.4.2& quot; /> <id nullFlavor="NA" /> <code codeSystem="local" code="908.3134" displayName="Non- HDL Cholesterol" /> <statusCode code="completed" /& gt; <effectiveTime value="917605247124" /> &lt ;value unit="mg/dL" xsi:type="PQ" value="137" /&gt ; <referenceRange> <observationRange> <text>0-159</text> </observationRange> </referenceRange> </observation> </component> <component> <observation moodCode="EVN" classCode= "OBS"> <templateId root=" 2.16.840.1.652580.10..22.4.2" /> <id nullFlavor="NA& quot; /> <code codeSystem="local" code="908.3127& quot; displayName="LLDL-A" /> <statusCode code=" completed" /> <effectiveTime value="822571299872" /> <value unit="mg/dL" xsi:type="PQ" value=" 115" /> <referenceRange> <observationRange& gt; <text>0-130</text> </observationRange > </referenceRange> </observation> </ component> <component> <observation moodCode="EVN& quot; classCode="OBS"> <templateId root=" 2.16.840.1.368002.10.20.22.4.2" /> <id nullFlavor="NA& quot; /> <code codeSystem="local" code="908.3129& quot; displayName="LVLDL-A" /> <statusCode code=" completed" /> <effectiveTime value="924796133247" /> <value unit="mg/dL" xsi:type="PQ" value=& quot;22" /> <referenceRange> < observationRange> <text>0-28</text> </ observationRange> </referenceRange> </observation&gt ; </component> </organizer> </entry> <entry> <organizer moodCode="EVN" classCode="BATTERY"> & lt;templateId root="2.16.840.1.111958.10.20.22.4.1" /> <id nullFlavor="NA" /> <code codeSystem="local" code= "LTSH-A" displayName="L750.9150" /> <statusCode code="completed" /> <component> <observation moodCode="EVN" classCode="OBS"> <templateId root="2.16.840.1.653093.10.20.22.4.2" /> <id nullFlavor ="NA" /> <code codeSystem="local" code=" 908.3175" displayName="TSH - Thyroid Stim Horm-AMS" /> <statusCode code="completed" /> <effectiveTime value="137394649221" /> <value unit="uIU/mL" xsi:type="PQ" value="5.61" /> < interpretationCode codeSystem="local" code="*" /> <referenceRange> <observationRange> < text>0.35-4.94</text> </observationRange> &lt ;/referenceRange> </observation> </component> < /organizer> </entry> <entry> <organizer moodCode=" EVN" classCode="BATTERY"> <templateId root=" 2.16.840.1.183989.10.20.22.4.1" /> <id nullFlavor="NA&quot ; /> <code codeSystem="local" code="LBMP-A" displayName="L749.2000" /> <statusCode code="completed " /><component> <observation moodCode="EVN" classCode="OBS"> <templateId root=" 2.16.840.1.071984.10.20.22.4.2" /> <id nullFlavor="NA& quot; /> <code codeSystem="local" code="908.3031& quot; displayName="NA - Sodium - AMS" /> <statusCode code="completed" /> <effectiveTime value="989134809434& quot; /> <value unit="mEq/L" xsi:type="PQ" value="135" /> <referenceRange> < observationRange> <text>135-144</text> & lt;/observationRange> </referenceRange> </ observation> </component> <component> < observation moodCode="EVN" classCode="OBS"> < templateId root="2.16.840.1.608034.10.20.22.4.2" /> < id nullFlavor="NA" /> <code codeSystem="local&quot ; code="908.3033" displayName="Potassium - AMS" /> <statusCode code="completed" /> <effectiveTime value="565406789059" /> <value unit="mEq/L" xsi:type="PQ" value="4.6" /> <referenceRange& gt; <observationRange> <text>3.5-5.2</ text> </observationRange></referenceRange> < /observation> </component> <component> < observation moodCode="EVN" classCode="OBS"> < templateId root="[id number]" /> < id nullFlavor="NA" /> <code codeSystem="local&quot ; code="908.3035" displayName="Chloride-AMS" /> <statusCode code="completed" /> <effectiveTime value ="[id number]" /> <value unit="mEq/L" xsi: type="PQ" value="101" /> <referenceRange> <observationRange> <text>99-111</text> </observationRange> </referenceRange> </ observation> </component> <component> < observation moodCode="EVN" classCode="OBS"> < templateId root="[id number]" /> < id nullFlavor="NA" /> <code codeSystem="local&quot ; code="908.3037" displayName="CO2 - Carbon Dioxide-AMS" /& gt; <statusCode code="completed" /> < effectiveTime value="380969468609" /> <value unit=&quot ;mEq/L" xsi:type="PQ" value="24" /> < referenceRange> <observationRange> <text>23-31< /text> </observationRange> </referenceRange> </observation> </component> <component> <observation moodCode="EVN" classCode="OBS"> <templateId root="2.16.840.1.399670.10.20.22.4.2" /> <id nullFlavor="NA" /> <code codeSystem=" local" code="908.3039" displayName="Anion Gap - AMS" /& gt; <statusCode code="completed" /> < effectiveTime value="460983762661" /> <value unit=&quot ;mEq/L" xsi:type="PQ" value="10" /> < referenceRange> <observationRange> <text> 3-20</text> </observationRange> </ referenceRange> </observation> </component> < component> <observation moodCode="EVN" classCode=" OBS"> <templateId root="2.16.840.1.285012.10.20.22.4.2& quot; /> <id nullFlavor="NA" /> <code codeSystem="local" code="908.3041" displayName="BUN - Blood Urea Nitrogen -AMS" /> <statusCode code="completed& quot; /> <effectiveTime value="212184708225" /> <value unit="mg/dL" xsi:type="PQ" value="21& quot; /> <referenceRange> <observationRange> <text>8-26</text> </observationRange&gt ; </referenceRange> </observation> </ component> <component> <observation moodCode="EVN& quot; classCode="OBS"> <templateId root=" 2.16.840.1.989793.10.20.22.4.2" /> <id nullFlavor="NA& quot; /> <code codeSystem="local" code="908.3043& quot; displayName="Creatinine - AMS" /> <statusCode code="completed" /> <effectiveTime value=" 256893363836" /> <value unit="mg/dL" xsi:type=& quot;PQ" value="0.92" /> <referenceRange> <observationRange> <text>0.72-1.25</text> </observationRange> </referenceRange> < /observation> </component> <component> < observation moodCode="EVN" classCode="OBS"> < templateId root="2.16.840.1.446536.10.20.22.4.2" /> < id nullFlavor="NA" /> <code codeSystem="local&quot ; code="908.3045" displayName="Glomerular Filtration Rate-AMS& quot; /> <statusCode code="completed" /> < effectiveTime value="657229913957" /> <value unit=&quot ;mL/min" xsi:type="PQ" value="> 60" /> <referenceRange> <observationRange> < text>>60</text> </observationRange> & lt;/referenceRange> </observation> </component> & lt;component> <observation moodCode="EVN" classCode=&quot ;OBS"> <templateId root="2.16.840.1.541631.10.20.22.4.2 " /> <id nullFlavor="NA" /> <code codeSystem="local" code="908.3047" displayName=" Glucose - AMS" /><statusCode code="completed" /> <effectiveTime value="545930267882" /> <value unit="mg/dL" xsi:type="PQ" value="78" /> <referenceRange> <observationRange> < text>70-99</text> </observationRange> </ referenceRange> </observation> </component> < component> <observation moodCode="EVN" classCode=" OBS"> <templateId root="2.16.840.1.980941.10.20.22.4.2& quot; /> <id nullFlavor="NA" /> <code codeSystem="local" code="908.3054" displayName=" Calcium - AMS" /> <statusCode code="completed" /& gt; <effectiveTime value="672117345855" /> < value unit="mg/dL" xsi:type="PQ" value="9.3" /&gt ; <referenceRange> <observationRange> <text>8.4-10.2</text> </observationRange> </referenceRange> </observation> </component> </organizer> </entry> <entry> <organizer moodCode=& quot;EVN" classCode="BATTERY"> <templateId root=" 2.16.840.1.933525.10.20.22.4.1" /> <id nullFlavor="NA&quot ; /> <code codeSystem="local" code="LT4F-A" displayName="L908.3165" /> <statusCode code="completed " /> <component> <observation moodCode="EVN& quot; classCode="OBS"> <templateId root=" 2.16.840.1.476968.10.20.22.4.2" /> <id nullFlavor="NA& quot; /> <code codeSystem="local" code="908.3165& quot; displayName="Free T4 (Free Thyroxine)-AMS" /> < statusCode code="completed" /> <effectiveTime value=& quot;243171604015" /> <value unit="ng/dL" xsi:type ="PQ" value="1.0" /> <referenceRange> <observationRange> <text>0.7-1.5</text> </observationRange> </referenceRange> </ observation> </component> </organizer> </entry> & lt;entry> <organizer moodCode="EVN" classCode="BATTERY& quot;> <templateId root="2.16.840.1.058615.10.20.22.4.1" /& gt; <id nullFlavor="NA" /> <code codeSystem=" local" code="LTSH-A" displayName="L750.9150" /> <statusCode code="completed" /> <component> <observation moodCode="EVN" classCode="OBS"> <templateId root="2.16.840.1.511913.10.20.22.4.2" /> & lt;id nullFlavor="NA" /> <code codeSystem="local& quot; code="908.3175" displayName="TSH - Thyroid Stim Horm-AMS& quot; /> <statusCode code="completed" /> & lt;effectiveTime value="267700867463" /> <value unit=& quot;uIU/mL" xsi:type="PQ" value="8.60" /> & lt;interpretationCode codeSystem="local" code="*" /> <referenceRange> <observationRange> & lt;text>0.35-4.94</text> </observationRange> & lt;/referenceRange> </observation> </component> </ organizer> </entry> <entry> <organizer moodCode="EVN " classCode="BATTERY"> <templateId root=" 2.16.840.1.585134.10.20.22.4.1" /> <id nullFlavor="NA&quot ; /> <code codeSystem="local" code="LCBC" displayName="L100.0050" /> <statusCode code="completed " /> <component> <observation moodCode="EVN& quot; classCode="OBS"> <templateId root=" 2.16.840.1.702609.10.20.22.4.2" /> <id nullFlavor="NA& quot; /> <code codeSystem="local" code="100.0150& quot; displayName="WBC - WHITE BLOOD COUNT" /> < statusCode code="completed" /> <effectiveTime value=& quot;202313370007" /> <value unit="T/MM3" xsi:type="PQ " value="6.2" /> <referenceRange> & lt;observationRange> <text>4.5-11.0</text> </observationRange> </referenceRange> </ observation> </component> <component> < observation moodCode="EVN" classCode="OBS"> < templateId root="2.16.840.1.220304.10.20.22.4.2" /> <id nullFlavor="NA" /> <code codeSystem="local" code="100.0250" displayName="RED BLOOD COUNT" /> <statusCode code="completed" /> <effectiveTime value="153949198061" /> <value unit="M/MM3" xsi:type="PQ" value="4.25" /> < interpretationCode codeSystem="local" code="*" /> <referenceRange> <observationRange> <text> 4.50-5.90</text> </observationRange> </ referenceRange> </observation> </component> < component> <observation moodCode="EVN" classCode=" OBS"> <templateId root="2.16.840.1.647202.10.20.22.4.2&quot ; /> <id nullFlavor="NA" /> <code codeSystem="local" code="100.0300" displayName="HGB - HEMOGLOBIN" /> <statusCode code="completed" /> <effectiveTime value="198751831837" /> <value unit="GM/DL" xsi:type="PQ" value="13.4" /> <interpretationCode codeSystem="local" code="*" /& gt; <referenceRange> <observationRange> <text>13.5-17.5</text> </observationRange>&lt ;/referenceRange> </observation> </component> & lt;component> <observation moodCode="EVN" classCode=" OBS"> <templateId root="2.16.840.1.593646.10.20.22.4.2& quot; /> <id nullFlavor="NA" /> <code codeSystem="local" code="100.0400" displayName="HCT - HEMATOCRIT" /> <statusCode code="completed" /> <effectiveTime value="921424483012" /> < value unit="%" xsi:type="PQ" value="39.6" /> <interpretationCode codeSystem="local" code="*& quot; /> <referenceRange> <observationRange> <text>41-53</text> </observationRange> & lt;/referenceRange> </observation> </component> <component> <observation moodCode="EVN" classCode=& quot;OBS"> <templateId root=" 2.16.840.1.934408.10.20.22.4.2" /> <id nullFlavor="NA& quot; /> <code codeSystem="local" code="100.0550& quot; displayName="MEAN CORPUSCULAR VOLUME" /> < statusCode code="completed" /> <effectiveTime value=& quot;865602887341" /> <value unit="UM3" xsi:type=& quot;PQ" value="93.2" /> <referenceRange> <observationRange> <text>80-100</text> </observationRange> </referenceRange> </ observation> </component> <component> < observation moodCode="EVN" classCode="OBS"> < templateId root="2.16.840.1.733798.10.20.22.4.2" /> < id nullFlavor="NA" /> <code codeSystem="local&quot ; code="100.0600" displayName="MEAN CORPUSCULAR HGB" /> <statusCode code="completed" /> <effectiveTime value="638922525959" /> <value unit="UUG" xsi :type="PQ" value="31.5" /> <referenceRange&gt ; <observationRange> <text>26-34</text&gt ; </observationRange> </referenceRange> & lt;/observation> </component> <component> < observation moodCode="EVN" classCode="OBS"> < templateId root="2.16.840.1.123023.10.20.22.4.2" /> < id nullFlavor="NA" /> <code codeSystem="local&quot ; code="100.0650" displayName="MEAN CORPUSCULAR HGB CONC([facility]& quot; /> <statusCode code="completed" /> < effectiveTime value="307899703260" /> <value unit=&quot ;GM/DL" xsi:type="PQ" value="33.8" /> < referenceRange> <observationRange> <text> 31-37</text> </observationRange> </ referenceRange> </observation> </component> < component> <observation moodCode="EVN" classCode=" OBS"> <templateId root="2.16.840.1.684766.10.20.22.4.2& quot; /> <id nullFlavor="NA" /> <code codeSystem="local" code="100.0750" displayName="RDW STANDARD DEVIATION" /> <statusCode code="completed" /> <effectiveTime value="954666232418" /> < value unit="FL" xsi:type="PQ" value="45.5" /> <referenceRange> <observationRange> <text>36.9-50.2</text> </observationRange> </referenceRange> </observation> </component> <component> <observation moodCode="EVN" classCode="OBS"> <templateId root=" 2.16.840.1.963113.10.20.22.4.2" /> <id nullFlavor="NA& quot; /> <code codeSystem="local" code="100.0850& quot; displayName="PLT - PLATELET COUNT" /> < statusCode code="completed" /> <effectiveTime value=& quot;491731514811"/> <value unit="T/MM3" xsi:type= "PQ" value="149" /> <referenceRange> <observationRange> <text>130-400</text> </observationRange> </referenceRange> </ observation> </component> <component> < observation moodCode="EVN" classCode="OBS"> < templateId root="2.16.840.1.697946.10.20.22.4.2" /> < id nullFlavor="NA" /> <code codeSystem="local&quot ; code="100.0950" displayName="MEAN PLATELET VOLUME" /> <statusCode code="completed" /> < effectiveTime value="602020111342" /> <value unit=" UM3" xsi:type="PQ" value="9.6" /><referenceRange& gt; <observationRange> <text>9.4-12.4</ text> </observationRange> </referenceRange> </observation> </component> <component> <observation moodCode="EVN" classCode="OBS"> <templateId root="2.16.840.1.563403.10.20.22.4.2" /> <id nullFlavor="NA" /> <code codeSystem=" local" code="100.1050" displayName="NEUTROPHILS % ( AUTO)" /> <statusCode code="completed" /> <effectiveTime value="126318720720" /> <value unit="%" xsi:type="PQ" value="56.7" /> <referenceRange> <observationRange> <text>33-66</text> </observationRange> &lt ;/referenceRange> </observation> </component> & lt;component> <observation moodCode="EVN" classCode=&quot ;OBS"> <templateId root="2.16.840.1.018647.10.20.22.4.2 " /> <id nullFlavor="NA" /> <code codeSystem="local" code="100.1100" displayName=" LYMPHOCYTES % (AUTO)" /> <statusCode code=" completed" /> <effectiveTime value="728340681244"/ > <value unit="%" xsi:type="PQ" value ="31.6" /> <referenceRange> < observationRange> <text>23-45</text> < /observationRange> </referenceRange> </observation& gt; </component> <component> <observation moodCode="EVN" classCode="OBS"> <templateId root="2.16.840.1.303901.10.20.22.4.2" /> <id nullFlavor ="NA" /> <code codeSystem="local" code=" 100.1150" displayName="MONOCYTES % (AUTO)" /> <statusCode code="completed" /> <effectiveTime value="175465425903" /> <value unit="%& quot; xsi:type="PQ" value="9.4"/> < interpretationCode codeSystem="local" code="*" />< referenceRange> <observationRange> <text> 0-9.0</text> </observationRange> </ referenceRange> </observation> </component> < component> <observation moodCode="EVN" classCode=" OBS"> <templateId root="2.16.840.1.587825.10.20.22.4.2& quot; /> <id nullFlavor="NA" /> <code codeSystem="local" code="100.1200" displayName=" EOSINOPHILS % (AUTO)" /> <statusCode code=" completed" /> <effectiveTime value="051090422641" /> <value unit="%" xsi:type="PQ" value=& quot;1.8" /> <referenceRange> <observationRange& gt; <text>0-4</text> </observationRange& gt; </referenceRange> </observation> </ component> <component> <observation moodCode="EVN& quot; classCode="OBS"> <templateId root=" 2.16.840.1.965419.10.20.22.4.2" /> <id nullFlavor="NA& quot; /> <code codeSystem="local" code="100.1250& quot; displayName="BASOPHILS % (AUTO)" /> < statusCode code="completed" /> <effectiveTime value=& quot;506414677369" /> <value unit="%" xsi: type="PQ" value="0.3" /> <referenceRange> <observationRange> <text>0-2</text> </observationRange> </referenceRange> </ observation> </component> <component> < observation moodCode="EVN" classCode="OBS"> < templateId root="2.16.840.1.579067.10.20.22.4.2" /> < id nullFlavor="NA" /> <code codeSystem="local&quot ; code="100.1275" displayName="IMMATURE GRANULOCYTE % ( AUTO)" /> <statusCode code="completed" /> <effectiveTime value="350702297631" /> <value unit="%" xsi:type="PQ" value="0.2"/> <referenceRange> <observationRange> <text>0.0-0.5</text> </observationRange> & lt;/referenceRange> </observation> </component> <component> <observation moodCode="EVN" classCode=& quot;OBS"> <templateId root=" 2.16.840.1.826028.10.20.22.4.2" /> <id nullFlavor="NA& quot; /> <code codeSystem="local" code="100.1300& quot; displayName="NEUTROPHILS # (AUTO)" /> < statusCode code="completed" /> <effectiveTime value=& quot;515853218513" /> <value unit="T/MM3" xsi:type ="PQ" value="3.5" /> <referenceRange> <observationRange> <text>1.8-7.7</text> </observationRange> </referenceRange> < /observation> </component> <component> < observation moodCode="EVN" classCode="OBS"> < templateId root="2.16.840.1.934134.10.20.22.4.2" /> < id nullFlavor="NA" /> <code codeSystem="local&quot ; code="100.1350" displayName="LYMPHOCYTES # (AUTO)" /> <statusCode code="completed" /> < effectiveTime value="835034355304" /> <value unit=&quot ;T/MM3" xsi:type="PQ" value="2.0" /> < referenceRange> <observationRange> <text> 1-4.8</text> </observationRange> </ referenceRange> </observation> </component> < component> <observation moodCode="EVN" classCode=" OBS"> <templateId root="2.16.840.1.284273.10.20.22.4.2& quot; /> <id nullFlavor="NA" /> <code codeSystem="local" code="100.1400" displayName=" MONOCYTES # (AUTO)" /> <statusCode code="completed&quot ; /> <effectiveTime value="556765508370" />< value unit="T/MM3" xsi:type="PQ" value="0.6" /&gt ; <referenceRange> <observationRange> <text>0-0.8</text> </observationRange> </ referenceRange> </observation> </component> < component> <observation moodCode="EVN" classCode=" OBS"> <templateId root="2.16.840.1.058601.10.20.22.4.2& quot; /> <id nullFlavor="NA" /> <code codeSystem ="local" code="100.1450" displayName="EOSINOPHILS # ( AUTO)" /> <statusCode code="completed" /> <effectiveTime value="722022945750" /> <value unit="T/MM3" xsi:type="PQ" value="0.1" /> <referenceRange> <observationRange> &lt ;text>0-0.5</text> </observationRange> </ referenceRange> </observation> </component> < component> <observation moodCode="EVN" classCode=" OBS"> <templateId root="2.16.840.1.240713.10.20.22.4.2& quot; /> <id nullFlavor="NA" /> <code codeSystem="local" code="100.1500" displayName=" BASOPHILS # (AUTO)" /> <statusCode code="completed&quot ; /> <effectiveTime value="273928368596" /> <value unit="T/MM3" xsi:type="PQ" value="0.0&quot ; /> <referenceRange> <observationRange> <text>0-0.2</text> </observationRange> </referenceRange> </observation> </component&gt ; <component> <observation moodCode="EVN" classCode= "OBS"> <templateId root=" 2.16.840.1.556754.10.20.22.4.2" /> <id nullFlavor="NA& quot; /> <code codeSystem="local" code="100.1525& quot; displayName="IMMATURE GRANULOCYTE # (AUTO)" /> < statusCode code="completed" /> <effectiveTime value=& quot;349514493652" /> <value unit="T/MM3" xsi:type ="PQ" value="0.01" /> <referenceRange> <observationRange> <text>0.00-0.03</text&gt ; </observationRange> </referenceRange> & lt;/observation> </component> </organizer> </entry&gt ; <entry> <organizer moodCode="EVN" classCode=" BATTERY"> <templateId root="2.16.840.1.200889.10.20.22.4.1& quot; /> <id nullFlavor="NA" /> <code codeSystem ="local" code="LCMP" displayName="L200.0020" /&gt ; <statusCode code="completed" /> <component> <observation moodCode="EVN" classCode="OBS"> <templateId root="2.16.840.1.237450.10.20.22.4.2" /> <id nullFlavor="NA" /> <code codeSystem=" local" code="300.0400" displayName="FUNGAL CULTURE." /& gt; <statusCode code="completed" /> < effectiveTime value="616203672048" /> <value unit=&quot ;mg/dL" xsi:type="PQ" value="1.1" /> < referenceRange> <observationRange> <text>0.8-1.5& lt;/text> </observationRange> </referenceRange& gt; </observation> </component> <component> <observation moodCode="EVN" classCode="OBS"> <templateId root="2.16.840.1.906950.10.20.22.4.2" /> & lt;id nullFlavor="NA" /> <code codeSystem="local& quot; code="300.0450" displayName="FUNGAL CULTURE, BLOOD." / > <statusCode code="completed" /> < effectiveTime value="738650372639" /> <value unit=&quot ;RATIO" xsi:type="PQ" value="19" /> < referenceRange> <observationRange> <text> 6-26</text> </observationRange> </ referenceRange> </observation> </component> < component> <observation moodCode="EVN" classCode=" OBS"> <templateId root="2.16.840.1.885638.10.20.22.4.2& quot; /> <id nullFlavor="NA" /> <code codeSystem="local" code="300.0100" displayName="NA - Sodium" /> <statusCode code="completed" /> <effectiveTime value="492691766060" /> <value unit="MEQ/L" xsi:type="PQ" value="138" /> <referenceRange> <observationRange> &lt ;text>136-146</text> </observationRange> < /referenceRange> </observation> </component> &lt ;component> <observation moodCode="EVN" classCode="OBS&quot ;> <templateId root="2.16.840.1.518919.10.20.22.4.2" /& gt; <id nullFlavor="NA" /> <code codeSystem=& quot;local" code="300.0150" displayName="Potassium" /& gt; <statusCode code="completed" /> < effectiveTime value="312474134260" /> <value unit=&quot ;MEQ/L" xsi:type="PQ" value="4.8" /> < referenceRange> <observationRange> <text>3.6-5</ text> </observationRange> </referenceRange> </observation> </component> <component> <observation moodCode="EVN" classCode="OBS"> <templateId root="2.16.840.1.899107.10.20.22.4.2" /> <id nullFlavor="NA" /> <code codeSystem=" local" code="300.0200" displayName="Chloride" /> <statusCode code="completed" /> < effectiveTime value="222355059882" /> <value unit=&quot ;MEQ/L" xsi:type="PQ" value="102" /> < referenceRange> <observationRange> <text> 98-107</text> </observationRange> </ referenceRange> </observation> </component> < component> <observation moodCode="EVN" classCode=" OBS"> <templateId root="2.16.840.1.466480.10.20.22.4.2& quot; /> <id nullFlavor="NA" /> <code codeSystem="local" code="300.0250" displayName="CO2 - Carbon Dioxide" /> <statusCode code="completed" /& gt; <effectiveTime value="115080925252" /> &lt ;value unit="MEQ/L" xsi:type="PQ" value="26" /&gt ; <referenceRange> <observationRange> < text>22-30</text> </observationRange> </ referenceRange> </observation> </component> < component> <observation moodCode="EVN" classCode=" OBS"> <templateId root="2.16.840.1.100717.10.20.22.4.2& quot; /> <id nullFlavor="NA" /> <code codeSystem="local" code="300.0300" displayName="Anion Gap" /> <statusCode code="completed" /> <effectiveTime value="304833564898" /> <valueunit ="meq/L" xsi:type="PQ" value="10" /> & lt;referenceRange> <observationRange> <text& gt;5-15</text> </observationRange> </ referenceRange> </observation> </component> < component> <observation moodCode="EVN" classCode=" OBS"> <templateId root="2.16.840.1.553137.10.20.22.4.2& quot; /> <id nullFlavor="NA" /> <code codeSystem="local" code="300.0350" displayName="BUN - Blood Urea Nitrogen" /> <statusCode code="completed& quot; /> <effectiveTime value="026025652790" /> <value unit="MG/DL" xsi:type="PQ" value="21.0& quot; /> <interpretationCode codeSystem="local" code=& quot;*" /> <referenceRange> < observationRange> <text>9-20</text> </ observationRange> </referenceRange> </observation&gt ; </component> <component> <observation moodCode ="EVN" classCode="OBS"> <templateId root=& quot;2.16.840.1.407590.10.20.22.4.2" /> <id nullFlavor=&quot ;NA" /> <code codeSystem="local" code=" 300.0410" displayName="Glomerular Filtration Rate" /> <statusCode code="completed" /> <effectiveTime value=& quot;491045930382" /> <value unit="" xsi:type=& quot;PQ" value="63" /> <referenceRange> <observationRange> <text>NRG</text> </observationRange> </referenceRange> </observation&gt ; </component> <component> <observation moodCode=& quot;EVN" classCode="OBS"> <templateIdroot=" 2.16.840.1.284853.10.20.22.4.2" /> <id nullFlavor="NA& quot; /> <code codeSystem="local" code="300.0500& quot; displayName="Glucose" /> <statusCode code=" completed" /> <effectiveTime value="972544573135" /> <value unit="MG/DL" xsi:type="PQ" value=& quot;88" /> <referenceRange> < observationRange> <text>75-110</text> </ observationRange> </referenceRange> </observation&gt ; </component> <component> <observation moodCode ="EVN" classCode="OBS"> <templateId root=& quot;2.16.840.1.472028.10.20.22.4.2" /> <id nullFlavor=&quot ;NA" /> <code codeSystem="local" code=" 300.2000" displayName="Osmolality,Calculated" /> < statusCode code="completed" /> <effectiveTime value=& quot;235606784724" /> <value unit="MOSM/KG" xsi: type="PQ" value="268" /> <referenceRange> <observationRange> <text>261-280</text& gt; </observationRange> </referenceRange> </observation> </component> <component> &lt ;observation moodCode="EVN" classCode="OBS"> &lt ;templateId root="2.16.840.1.945123.10.20.22.4.2" /> < id nullFlavor="NA" /> <code codeSystem="local&quot ; code="300.2200" displayName="Calcium" /> < statusCode code="completed" /> <effectiveTime value=& quot;463246379300" /> <value unit="MG/DL" xsi:type ="PQ" value="9.1" /> <referenceRange> <observationRange> <text>8.4-10.2</text> </observationRange> </referenceRange> &lt ;/observation> </component> <component> < observation moodCode="EVN" classCode="OBS"> < templateId root="2.16.840.1.597311.10.20.22.4.2" /> < id nullFlavor="NA" /> <code codeSystem="local&quot ; code="300.0400" displayName="Bilirubin,Total" /> <statusCode code="completed" /> <effectiveTime value="819698708866" /> <value unit="MG/DL" xsi: type="PQ" value="1.10" /><referenceRange> <observationRange> <text>0.20-1.30</text> </observationRange> </referenceRange> </ observation> </component> <component> < observation moodCode="EVN" classCode="OBS"> < templateId root="2.16.840.1.334665.10.20.22.4.2" /> < id nullFlavor="NA" /> <code codeSystem="local&quot ; code="300.2975" displayName="Alkaline Phosphatase" /> <statusCode code="completed" /> < effectiveTime value="889411860860" /> <value unit="U/L& quot; xsi:type="PQ" value="108" /> < referenceRange> <observationRange> <text> 38-126</text> </observationRange> </ referenceRange> </observation> </component> < component> <observation moodCode="EVN" classCode=" OBS"> <templateId root="2.16.840.1.787427.10.20.22.4.2& quot; /> <id nullFlavor="NA" /> <code codeSystem="local" code="300.3050" displayName="AST - Aspartate Amino Transfer" /> <statusCode code=" completed" /> <effectiveTime value="700502937992" /> <value unit="U/L" xsi:type="PQ" value="33& quot; /> <referenceRange> <observationRange> <text>17-59</text> </observationRange> </referenceRange> </observation> </component& gt; <component> <observation moodCode="EVN" classCode="OBS"> <templateId root=" 2.16.840.1.547578.10.20.22.4.2" /> <id nullFlavor="NA" /& gt; <code codeSystem="local" code="300.3110" displayName="TP - Total Protein" /> <statusCode code=& quot;completed" /> <effectiveTime value="[id number]& quot; /> <value unit="g/dL" xsi:type="PQ" value="6.7" /> <referenceRange> < observationRange> <text>6.3-8.2</text> & lt;/observationRange> </referenceRange> </ observation> </component> <component> < observation moodCode="EVN" classCode="OBS"> < templateId root="[id number]" /> < id nullFlavor="NA" /> <code codeSystem="local&quot ; code="300.3120" displayName="Albumin Level" /> <statusCode code="completed" /> <effectiveTime value="[id number]" /> <value unit="g/dL" xsi:type="PQ" value="4.0" /> <referenceRange& gt; <observationRange> <text>3.5-5.0</text> </observationRange> </referenceRange> </ observation> </component> <component> < observation moodCode="EVN" classCode="OBS"> < templateId root="2.16.840.1.582891.10.20.22.4.2" /> < id nullFlavor="NA" /> <code codeSystem="local&quot ; code="300.3130" displayName="Globulin" /> < statusCode code="completed" /> <effectiveTime value=& quot;618029699298" /> <value unit="G/DL" xsi:type= "PQ" value="2.7" /> <referenceRange> <observationRange> <text>2.4-3.6</text> </observationRange></referenceRange> </ observation> </component> <component> < observation moodCode="EVN" classCode="OBS"> < templateId root="2.16.840.1.760342.10..22.4.2" /> < id nullFlavor="NA" /> <code codeSystem="local&quot ; code="300.3140" displayName="Albumin/Globulin Ratio" /&gt ; <statusCode code="completed" /> < effectiveTime value="331252386070" /> <value unit=&quot ;RATIO" xsi:type="PQ" value="1.5" /> < referenceRange> <observationRange> <text> 1.1-2.2</text> </observationRange> </ referenceRange> </observation> </component> < component> <observation moodCode="EVN" classCode="OBS" > <templateId root="2.16.840.1.531556.10.20.22.4.2" /& gt; <id nullFlavor="NA" /> <code codeSystem=& quot;local" code="300.0095" displayName="LICTERUS" /&gt ; <statusCode code="completed" /> < effectiveTime value="142437211766" /> <value unit=&quot ;" xsi:type="PQ" value="< 2" /> < referenceRange> <observationRange> <text>0-7</text > </observationRange> </referenceRange> </observation> </component> <component> &lt ;observation moodCode="EVN" classCode="OBS"> &lt ;templateId root="2.16.840.1.703513.10.20.22.4.2" /> < id nullFlavor="NA" /> <code codeSystem="local&quot ; code="300.0096" displayName="LHEMOLYSIS" /> & lt;statusCode code="completed" /> <effectiveTime value= "894612305198" /> <value unit="" xsi:type=& quot;PQ" value="< 15" /> <referenceRange&gt ; <observationRange> <text>0-25</text&gt ; </observationRange> </referenceRange> & lt;/observation> </component> <component> < observation moodCode="EVN" classCode="OBS"> < templateId root="2.16.840.1.797390.10.20.22.4.2" /> < id nullFlavor="NA" /> <code codeSystem="local&quot ; code="300.0097" displayName="LTURBIDITY" /> & lt;statusCode code="completed" /> <effectiveTime value= "973980722417" /> <value unit="" xsi:type="PQ& quot; value="< 20" /> <referenceRange> <observationRange> <text>0-20</text> </observationRange> </referenceRange> </ observation> </component> <component> < observation moodCode="EVN" classCode="OBS"> < templateId root="2.16.840.1.697278.10.20.22.4.2" /> <id nullFlavor="NA" /> <code codeSystem="local" code="300.3105" displayName="LALTV" /> < statusCode code="completed" /> <effectiveTime value=& quot;113678813988" /> <value unit="U/L" xsi:type=& quot;PQ" value="43" /> <referenceRange> &lt ;observationRange> <text>1-50</text> < /observationRange> </referenceRange> </observation& gt; </component> </organizer> </entry> <entry&gt ; <organizer moodCode="EVN" classCode="BATTERY"> <templateId root="2.16.840.1.001542.10.20.22.4.1" /> & lt;id nullFlavor="NA" /> <code codeSystem="local&quot ; code="LTROPI" displayName="L300.3490" /> < statusCode code="completed" /> <component> < observation moodCode="EVN" classCode="OBS"> < templateId root="2.16.840.1.903133.10.20.22.4.2" /> < id nullFlavor="NA" /> <code codeSystem="local&quot ; code="300.3500" displayName="Troponin I" /> & lt;statusCode code="completed" /> <effectiveTime value= "882456117220" /> <value unit="ng/ml" xsi: type="PQ" value="< 0.012" /> < referenceRange><observationRange> <text>0-0.12</ text> </observationRange> </referenceRange> </observation> </component> </organizer> </ entry> <entry> <organizer moodCode="EVN" classCode=& quot;BATTERY"> <templateId root=" 2.16.840.1.311283.10.20.22.4.1" /> <id nullFlavor="NA&quot ; /> <code codeSystem="local" code="HOWARD" displayName="L600.0100" /> <statusCode code="completed " /> <component> <observation moodCode="EVN& quot; classCode="OBS"> <templateId root=" 2.16.840.1.894152.10.20.22.4.2" /> <id nullFlavor="NA& quot; /> <code codeSystem="local" code="200.0150& quot; displayName="POTASSIUM" /> <statusCode code=&quot ;completed" /> <effectiveTime value="227201382783&quot ; /> <value unit="" xsi:type="PQ" value=&quot ;Urine, Void-CC/notCC" /> <referenceRange> &lt ;observationRange> <text>NRG</text> </ observationRange> </referenceRange> </observation> </component> <component> <observation moodCode=& quot;EVN" classCode="OBS"> <templateId root=" 2.16.840.1.761608.10.20.22.4.2" /> <id nullFlavor="NA& quot;/> <code codeSystem="local" code="200.0200& quot; displayName="CHLORIDE" /> <statusCode code=" completed" /> <effectiveTimevalue="199625516095" / > <value unit="" xsi:type="PQ" value=" YELLOW" /> <referenceRange> < observationRange> <text>YELLOW</text> </ observationRange> </referenceRange> </observation&gt ; </component> <component> <observation moodCode ="EVN" classCode="OBS"> <templateId root=& quot;2.16.840.1.380783.10.20.22.4.2" /> <id nullFlavor=&quot ;NA" /> <code codeSystem="local" code=" 200.0300" displayName="ANION GAP" /> <statusCode code= "completed" /> <effectiveTime value="480761509680& quot; /> <value unit="" xsi:type="PQ" value=& quot;CLEAR" /> <referenceRange> < observationRange> <text>NRG</text> </ observationRange> </referenceRange> </observation&gt ; </component> <component> <observation moodCode ="EVN" classCode="OBS"> <templateId root=& quot;2.16.840.1.282550.10.20.22.4.2" /> <id nullFlavor=&quot ;NA" /> <code codeSystem="local" code=" 200.0350" displayName="BLOOD UREA NITROGEN" /> < statusCode code="completed" /> <effectiveTime value=& quot;360069575264" /> <value unit="" xsi:type=& quot;PQ" value="7.5" /><referenceRange> < observationRange> <text>5.0-8.0</text> & lt;/observationRange> </referenceRange> </ observation> </component> <component> < observation moodCode="EVN" classCode="OBS"> < templateId root="2.16.840.1.491101.10.20.22.4.2" /> < id nullFlavor="NA" /> <code codeSystem="local&quot ; code="200.0450" displayName="BUN/CREATININE RATIO" /> <statusCode code="completed" /> < effectiveTime value="875923129170" /> <value unit="" xsi:type="PQ" value="NEGATIVE" /> < referenceRange> <observationRange> <text> NEGATIVE</text> </observationRange> </ referenceRange> </observation> </component> < component> <observation moodCode="EVN" classCode=" OBS"> <templateId root="2.16.840.1.649556.10.20.22.4.2& quot; /> <id nullFlavor="NA" /> <code codeSystem="local" code="200.0500" displayName="GLUCOSE " /> <statusCode code="completed" /> & lt;effectiveTime value="785474028509" /> <value unit=& quot;" xsi:type="PQ" value="NEGATIVE" /> & lt;referenceRange> <observationRange> <text&gt ;NEGATIVE</text> </observationRange> </ referenceRange> </observation> </component> < component> <observation moodCode="EVN" classCode=" OBS"> <templateId root="2.16.840.1.766087.10..22.4.2& quot; /> <id nullFlavor="NA" /> <code codeSystem="local" code="200.0600" displayName="CALCIUM " /> <statusCode code="completed" /> < effectiveTime value="016056364002" /> <value unit=&quot ;" xsi:type="PQ" value="NEGATIVE" /> < referenceRange> <observationRange> <text> NEGATIVE</text> </observationRange> </ referenceRange> </observation> </component> < component> <observation moodCode="EVN" classCode=" OBS"> <templateId root="2.16.840.1.596201.10.20.22.4.2& quot; /> <id nullFlavor="NA" /> <code codeSystem="local" code="200.0750" displayName=" BILIRUBIN, CONJUG &amp; UNCONJUG" /> <statusCode code="completed" /> <effectiveTime value=" 138267395144" /> <value unit="" xsi:type="PQ& quot; value="NEGATIVE" /> <referenceRange> &lt ;observationRange> <text>NEGATIVE</text> </observationRange> </referenceRange> </ observation> </component> <component> < observation moodCode="EVN" classCode="OBS"> < templateId root="2.16.840.1.808156.10.20.22.4.2" /> < id nullFlavor="NA" /> <code codeSystem="local&quot ; code="200.0325" displayName="Specific [place],Urine" /&gt ; <statusCode code="completed" /> < effectiveTime value="458760164110" /> <value unit=&quot ;" xsi:type="PQ" value="<=1.005" /> <interpretationCode codeSystem="local" code="*" /> <referenceRange> <observationRange> & lt;text>1.015-1.025</text> </observationRange> </referenceRange> </observation> </component> <component> <observation moodCode="EVN" classCode ="OBS"> <templateId root=" 2.16.840.1.115369.10.20.22.4.2" /> <id nullFlavor="NA& quot; /> <code codeSystem="local" code="200.0410& quot; displayName="Leukocyte Esterase,Urine" /> < statusCode code="completed" /> <effectiveTime value=" 242365050544" /> <value unit="" xsi:type="PQ& quot; value="NEGATIVE" /> <referenceRange> <observationRange> <text>NEGATIVE</text> </observationRange> </referenceRange> </ observation> </component> <component> < observation moodCode="EVN" classCode="OBS"> < templateId root="2.16.840.1.513388.10.20.22.4.2" /> < id nullFlavor="NA" /> <code codeSystem="local&quot ; code="200.0420" displayName="Nitrate,Urine" /> <statusCode code="completed" /> <effectiveTime value="361266524786" /> <value unit="" xsi: type="PQ" value="NEGATIVE" /> <referenceRange > <observationRange> <text>NEGATIVE</ text> </observationRange> </referenceRange> & lt;/observation> </component> <component> < observation moodCode="EVN" classCode="OBS"> < templateId root="2.16.840.1.030414.10.20.22.4.2" /> < id nullFlavor="NA" /> <code codeSystem="local&quot ; code="200.0740" displayName="Urobilinogen,Urine" /> <statusCode code="completed" /> < effectiveTime value="410116648271" /> <value unit=&quot ;EU/DL" xsi:type="PQ" value="0.2" /> < referenceRange> <observationRange> <text> NORMAL</text> </observationRange> </ referenceRange> </observation> </component> < component> <observation moodCode="EVN" classCode=" OBS"> <templateId root="2.16.840.1.526894.10.20.22.4.2& quot; /> <id nullFlavor="NA" /> <code codeSystem ="local" code="200.0825" displayName="Occult Blood, Urine - Dipstick" /> <statusCode code="completed" /> <effectiveTime value="714872408051" /> & lt;value unit="" xsi:type="PQ" value="NEGATIVE" /& gt; <referenceRange> <observationRange> <text>NEGATIVE</text> </observationRange> </referenceRange> </observation> </component& gt; <component> <observation moodCode="EVN" classCode=& quot;OBS"> <templateId root=" 2.16.840.1.506321.10.20.22.4.2" /> <id nullFlavor="NA& quot; /> <code codeSystem="local" code="200.0992&quot ; displayName="Urine Microscopic (UA)" /> <statusCode code="completed" /> <effectiveTime value=" 557246879151" /> <value unit="" xsi:type="PQ& quot; value="Microscopic Not Ind." /> <referenceRange& gt; <observationRange> <text>NRG</text&gt ; </observationRange> </referenceRange> </ observation> </component> </organizer> </entry>&lt ;/section> Encounters ACCT No. Visit Discharge Status Pt. Type Provider Facility Loc./Unit Complaint Date/Time [id number] 04/01/2017 04/01/2017 DIS Outpatient Phill PereaRAD 847 07:34:00 07:34:00 MD [facility] [id number] 03/08/2017 03/08/2017 CLS Preadmit Phill PereaOPRA 933 12:00:00 23:59:59 MD [facility] [id number] 03/08/2017 03/08/2017 DIS Emergency Marques Harsha ANTHONYLEANN 749 10:27:00 12:15:00 [facility] [id number] 03/01/2017 03/01/2017 DIS Outpatient Phill PereaPONerissa 538 10:12:00 10:12:00 MD [facility] [id number] 02/05/2017 02/08/2017 DIS Inpatient Marcel Perea8TS 313 23:53:00 17:14:00 [facility] [id number] 09/10/2013 09/11/2013 DIS Outpatient Hasrha Vogel MD3CW 030 09:02:00 13:00:00 [facility] [id number] 05/02/2012 05/17/2012 DIS Inpatient Harsha Paiz MD3TN 533 05:14:00 11:23:00 [facility] [id number] 05/01/2012 05/01/2012 DIS Outpatient Harsha Paiz MDPOA 104 08:57:00 08:57:00 [facility] [id number] 04/01/2017 04/01/2017 DIS Outpatient Phill PereaRAD 847 07:34:00 07:34:00 MD [facility] [id number] 03/08/2017 03/08/2017 CLS Preadmit Phill PereaOPRA 933 12:00:00 23:59:59 , [facility] [id number] 03/08/2017 03/08/2017 DIS Emergency Marquesgiuliana Harsha ANTHONYLEANN 749 10:27:00 12:15:00 [facility] [id number] 03/01/2017 03/01/2017 DIS Outpatient Phill PereaPOA 538 10:12:00 10:12:00 , [facility] [id number] 02/05/2017 02/08/2017 DIS Inpatient Marcel Perea8TS 313 23:53:00 17:14:00 , [facility] [id number] 09/10/2013 09/11/2013 DIS Outpatient Harsha Vogel MD3CW 030 09:02:00 13:00:00 [facility] [id number] 05/02/2012 05/17/2012 DIS Inpatient Harsha Paiz MD3TN 533 05:14:00 11:23:00 [facility] [id number] 05/01/2012 05/01/2012 DIS Outpatient Harsha Paiz MDPOA 104 08:57:00 08:57:00 [facility] [id number] 10/14/2016 10/14/2016 CLS Outpatient BUNTING 17:21:13 23:59:59 FORTINO DIAZ [id number] 01/12/2018 01/12/2018 DIS Emergency DUC ANTHONY Hamlin soa, high 720 09:51:00 15:32:00 REUBEN Fragoso [facility], low bp [place] [id number] 11/03/2017 11/03/2017 DIS Outpatient MARILUZ DIAZ, [facility] FU 1-29 186 13:53:00 16:56:00 DIEGO An Family [facility] [id number] 08/01/2017 08/01/2017 DIS Outpatient MARILUZ DIAZ, [facility] # 3mo f/u* 744 13:59:00 15:03:00 DIEGO An Family [facility] [id number] 06/20/2017 06/20/2017 DIS Outpatient DARELL [facility] # cough/ 790 14:17:00 15:27:00 SELINA Multani [facility] [id number] 04/07/2017 04/07/2017 DIS Outpatient MARILUZ DIAZ, [facility] # Well Man 019 12:52:00 16:29:00 DIEGO An Family Exam* [facility] COMPLETED [id number] 04/05/2017 04/05/2017 DIS Outpatient MARILUZ DIAZ [facility] # fasting 806 08:25:00 08:44:00 DIEGO S Family labs Practice MH/have new HIPPA SIGNED [id number] 02/05/2017 02/05/2017 DIS Emergency [facility] Weakness 653 18:12:00 23:24:00 AKBAR DIAZ [id number] 12/30/2016 12/30/2016 DIS Outpatient MARILUZ DIAZ, [facility] Office 122 12:52:00 13:33:00 DIEGO S visit FU 4-27* [id number] 10/17/2016 10/17/2016 CLS Preadmit [place] [facility] 843 08:19:00 23:59:59 [facility] [id number] 06/30/2016 06/30/2016 DIS Emergency PHILIP DIAZ, [place] [facility] 409 15:49:00 17:58:00 [facility] [id number] 01/13/2018 Document 570 14:33:00 Registrati on [id number] 11/03/2017 Document 845 16:48:00 Registrati on [facility] 09/11/2013 ACT Document 03:19:17 Registrati on
--- NOTE | 2018-01-13 15:53 | XRay Report ---
INDICATION: soa PROCEDURE: CHEST 2-VIEWS UPRIGHT (PA & LAT) Encounter: Initial COMPARISON: January 12, 2018 FINDINGS: New airspace consolidation in the left lower lobe. Right lung is stable and grossly clear apart from some chronic scarring and apical pleural thickening. Mild hyperinflation. No pneumothorax or effusion. Heart size and mediastinal contours are stable. Pulmonary vascularity is normal. Left pacemaker and prior CABG. Impression: Developing left lower lobe pneumonia or aspiration. .
[2018-01-13] MEDS ORDERED: CEFTRIAXONE 1 G in NS 100 ML IV ONE (16:03)
--- NOTE | 2018-01-13 16:29 | Emergency Department Report ---
General Adult HPI - General Chief complaint: Fever Stated complaint: fever Time Seen by Provider: 01/13/18 14:35 - History of Present Illness HPI narrative: 87-year-old male presents with fever. Patient had temp of 100.7 earlier today and requested to come to ED for evaluation. He has permanent torticollis and has had occasional issues with swallowing. He was seen in the emergency department yesterday with pacemaker issues. On arrival today he states that cannot explain exactly why he feels bad but that he feels weak and tired. This is a definite plant changer the last 24 hours. - Related Data Home Medications Medication Instructions Recorded Confirmed Aspirin [Adult Aspirin] 81 mg PO DAILY 01/12/18 01/13/18 Atenolol [Tenormin] 25 mg PO BID 01/12/18 01/13/18 Cholecalciferol (Vitamin D3) 5,000 unit PO DAILY 01/12/18 01/13/18 [Vitamin D3] Levothyroxine Sodium 50 mcg PO ACB 01/12/18 01/13/18 Acetaminophen [Tylenol] 650 mg PO PRN PRN 01/13/18 01/13/18 Allergies Allergy/AdvReac Type Severity Reaction Status Date / Time benazepril Allergy Airway Verified 01/13/18 14:50 Obstruction Review of Systems All systems: reviewed and negative except as stated PFSH Patient Stated Medical History Cardiac Arrhythmia Yes Clinic Medical History (Last Reviewed 06/20/17 @ 14:32 by ADOLFO Ellis) Osteoporosis (Chronic Medical) Hyperlipidemia (Chronic Medical) 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 inguinal hernia repair 2002. 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 Pacemaker 09/2012 (Jaspreet). Heart cath 2013 with no interventions. Cataracts removed bilat. 03/2016 Family History: Family History (Last Reviewed 06/20/17 @ 14:32 by ADOLFO Ellis) Father , at age 90 Diabetes CHF (congestive heart failure) Mother , at age 92 Alzheimer's dementia - Social History Smoking status: Never smoker Substance use type: does not use Alcohol intake frequency: does not drink Household members: spouse, other Current occupational status: retired Physical Exam - Limitations Limitations: no limitations - General General appearance: alert - Normal Exams: Cardiovascular:: Regular rate and rhythm, without murmur or gallop, Pulses 2+ all extremities, capillary refill, <2 seconds all extremities Abdomen:: Bowel sounds positive, soft, non-tender, non-distended, no hepatosplenomegaly, masses or bruits noted Neurological:: Patient is alert, and oriented, cranial nerves Psychiatric:: Patient exhibits, appropriate attention, emotion and affect - Respiratory Respiratory exam: Present: other (diminished breath sounds bilateral) - Cardiovascular Cardiovascular exam: Present: regular rate, normal rhythm Course Vital Signs Temperature 97.8 F 01/13/18 14:34 Pulse Rate 86 01/13/18 14:34 Respiratory Rate 18 01/13/18 14:34 Blood Pressure 125/64 01/13/18 14:34 Pulse Oximetry 97 01/13/18 14:34 Temperature 97.8 F 01/13/18 14:34 Pulse Rate 86 01/13/18 14:34 Respiratory Rate 18 01/13/18 14:34 Blood Pressure 125/64 01/13/18 14:34 Pulse Oximetry 97 01/13/18 14:34 Medical Decision Making - [facility] Narrative Medical decision making narrative: Peripheral IV started with 1 L normal saline bolus. Patient does have hypotension with systolic consistently less than 100, elevated temperature earlier this afternoon of 100.7, lactate greater than 3, white count is doubled from yesterday and significant left shift. X-ray shows developing left lower lobe infiltrate. Patient given 1 g of Rocephin on receipt of lactate level. However chest x-ray showing pneumonia means he requires treatment for healthcare associated pneumonia. Dr. Curry was consulted. - Differential Diagnosis pneumonia, sepsis, dehydration - Medical Records Medical records reviewed: Yes: I reviewed the patient's medical records. - Lab Data Result diagrams: 01/13/18 15:14 01/13/18 15:14 Lab Results 01/13/18 01/13/18 Range/Units 15:14 15:14 WBC 9.1 D (4.5-11.0) T/MM3 RBC 3.97 L (4.50-5.90) M/MM3 Hgb 12.7 L (13.5-17.5) GM/DL Hct 36.8 L (41-53) % MCV 92.7 (80-100) UM3 MCH 32.0 (26-34) UUG MCHC 34.5 (31-37) GM/DL RDW Std Deviation 45.2 (36.9-50.2) FL Plt Count 135 (130-400) T/MM3 MPV 10.2 (9.4-12.4) UM3 Immature Gran % (Auto) Not performed Neut % (Auto) Not performed Lymph % (Auto) Not performed Kidder % (Auto) Not performed Eos % (Auto) Not performed Baso % (Auto) Not performed Neut # (Auto) Not performed Lymph # (Auto) Not performed Kidder # (Auto) Not performed Eos # (Auto) Not performed Baso # (Auto) Not performed Abs Immat Gran (auto) Not performed Neutrophils % (Manual) 87.0 H (33-66) % Band Neutrophils % 3.0 D (0-6) % Lymphocytes % (Manual) 10.0 L (23-45) % Neutrophils # (Manual) 7.9 H (1.8-7.7) T/MM3 Band Neutrophils # 0.3 T/MM3 Lymphocytes # (Manual) 0.9 L (1-4.8) T/MM3 RBC Morph Comment Normal Turbidity < 20 (0-20) Sodium 138 (136-146) MEQ/L Potassium 4.2 (3.6-5) MEQ/L Chloride 105 (98-107) MEQ/L Carbon Dioxide 21 L (22-30) MEQ/L Anion Gap 12 (5-15) meq/L BUN 22.0 H (9-20) MG/DL Creatinine 1.0 (0.8-1.5) mg/dL GFR Calculation 71 BUN/Creatinine Ratio 22 (6-26) RATIO Glucose 124 H (75-110) MG/DL Calculated Osmolality 270 (261-280) MOSM/KG Calcium 8.8 (8.4-10.2) MG/DL Total Bilirubin 3.00 H (0.20-1.30) MG/DL Icterus Index < 2.0 (0-7) AST 649 H D (17-59) U/L ALT 346 H D (1-50) U/L Alkaline Phosphatase 220 H D (38-126) U/L Troponin I < 0.012 (0-0.12) ng/ml C-Reactive Protein 13.3 H (0-9) mg/L Total Protein 6.3 (6.3-8.2) g/dL Albumin 3.7 (3.5-5.0) g/dL Globulin 2.6 (2.4-3.6) G/DL Albumin/Globulin Ratio 1.4 (1.1-2.2) RATIO Plasma Lactate 3.2 H (0.6-2.2) MMOL/L Specimen Hemolysis < 15 (0-25) - Radiology Data Radiology results reviewed: Yes: I reviewed the patient's radiology results. Disposition Clinical Impression: Healthcare-associated pneumonia [place] [facility] [place] Condition: Stable Prescriptions: No Action Cholecalciferol (Vitamin D3) [Vitamin D3] 5,000 unit PO DAILY Levothyroxine Sodium 50 mcg PO ACB Atenolol [Tenormin] 25 mg PO BID Aspirin [Adult Aspirin] 81 mg PO DAILY Acetaminophen [Tylenol] 650 mg PO PRN PRN PRN Reason: Pain Referrals: Justus Hatfield MD [Primary Care Provider] - Time of Disposition: 16:43 - Seen By: physician
[2018-01-13] MEDS ORDERED: AZITHROMYCIN IV 500 MG in NS 250ml 250 ML IV SCH ×2 (16:45→18:00)
[2018-01-13] MEDS ORDERED: ACETAMINOPHEN 325 MG TABLET PO PRN (16:46)
--- NOTE | 2018-01-13 16:57 | History & Physical Report ---
History of Present Illness Date: 01/14/18 Chief complaint: Weakness, Sepsis, Pneumonia HPI: Patient is an 87-year-old male who was evaluated in the emergency room yesterday for shortness of breath and weakness. Patient had lab and radiology studies. He was not found to have any acute process. At that time. His pacemaker was interrogated and it was recommended that he follow up with Dr. Bloom for further evaluation of atrial leads. Patient was discharged back to [facility] where he resides independently with his . He reports that today he felt more fatigued accompanied by a cough. He return to the emergency room, given a fever of 100.7. Today laboratory studies didn't significantly change from yesterday. White count yesterday was 6.2, today is 9.1 with 89% neutrophils and 3% bands. Electrolytes remained normal. However, total bilirubin increased from 1.1-3.0 along with AST, increasing from 33-->649 , ALTs 43-->346 and alkaline phosphatase increasing from 108-->220. CRP today is found to be elevated at 13.3. Venous lactate is found to be critically high at 3.2. Chest x-ray did reveal left lower lobe pneumonia. Patient was given 1 liter of IV fluids, and started on IV Rocephin. The hospitalist services were contacted and accepted patient for inpatient admission for further evaluation and treatment Review of Systems All systems PM: 10-point ROS was reviewed, no additional remarkable complaints except - Constitutional Constitutional: Present: fatigue, fever(s) - Respiratory Respiratory: Present: cough Past Medical History Medical History: Medical History (Last Reviewed 01/13/18 @ 16:57 by Ryann Leiva, VANCE) Osteoporosis (Chronic) Hyperlipidemia (Chronic) Hx of squamous cell carcinoma (Acute) R cheek 2004 Actinic keratosis (Chronic) Seborrheic dermatitis (Chronic) Surgical History: Bilat. inguinal hernia repair 2002. 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 Pacemaker 09/2012 (Jaspreet). Heart cath 2013 with no interventions. Cataracts removed bilat. 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 Justus Hatfield Bone Glue Maker-Dr. Martins Medications Home Medications Medication Instructions Recorded Confirmed Type Aspirin [Adult Aspirin] 81 mg PO DAILY 01/12/18 01/13/18 History Atenolol [Tenormin] 25 mg PO BID 01/12/18 01/13/18 History Cholecalciferol (Vitamin D3) 5,000 unit PO DAILY 01/12/18 01/13/18 History [Vitamin D3] Levothyroxine Sodium 50 mcg PO ACB 01/12/18 01/13/18 History Acetaminophen [Tylenol] 650 mg PO PRN PRN 01/13/18 01/13/18 History Allergies Allergy/AdvReac Type Severity Reaction Status Date / Time benazepril Allergy Airway Verified 01/13/18 14:50 Obstruction Exam Vital Signs: Temperature 97.8 F 01/13/18 14:34 Pulse Rate 86 01/13/18 14:34 Respiratory Rate 18 01/13/18 14:34 Blood Pressure 125/64 01/13/18 14:34 Pulse Oximetry 97 01/13/18 14:34 Telemetry Rhythm: Sinus Rhythm Height/Weight/BMI: Height 1.75 m Weight 71.2 kg - Constitutional Present: no acute distress, well nourished, well developed - Routine HEENT Exam Eye: Present: EOMI ENT: Present: mucous membranes moist, dentition normal - Routine Respiratory Exam Present: CTA bilaterally. Absent: wheezes - Routine Cardiovascular Exam Present: RRR, S1, S2. Absent: murmur - Routine Abdominal Exam Present: soft, normoactive bowel sounds, non distended, non tender. Absent: tenderness - Routine Extremities Exam Present: no edema, pulses intact - Routine Back/Spine/Pelvis Exam Back/Spine: Present: full ROM - Routine Skin Exam Present: intact, dry, warm - Routine Neurological Exam Present: alert, oriented X3, CN II-XII intact, moving all extremities - Routine Psychiatric Exam Present: normal affect, normal thought process, cooperative Results - Labs CBC & Chem 7: 01/14/18 04:34 01/14/18 04:34 Microbiology Results: Microbiology 01/13/18 15:54 Peripheral/Iv Start Blood Culture - Preliminary Culture Initiated - Results Pending 01/13/18 16:05 Peripheral/Iv Start Blood Culture - Preliminary Culture Initiated - Results Pending Assessment and Plan Assessment and Plan: Impression Severe Sepsis- Pneumonia, Lactate > 3.0 HCAP- Resides at assisted living Acute Elevation of transaminase- POA Anemia- Chronic Hyperlipidemia Hypothyroidism History of squamous cell carcinoma Plan Admit to inpatient status under the care of Dr. Rocha for severe sepsis, pneumonia and elevated transaminase Repeat venous lactate are sepsis protocol Patient was given 1 gram of Rocephin IV while in the emergency room. QSOFA score- 0/3 at time of admission, Reveling likely low mortality risk Will treat with a modified HCAP regimen- Azithromycin 500 mg IV Daily and Cefepime 1 gm IV q 12 hours DuoNeb breathing treatments QID NS at 100 ml/hr for hydration Will need to monitor LFTs and abdomen carefully. At time of admission patient has no abdominal pain or nausea. Will follow with serial abdominal exams. May need to consider abdominal imaging. Tylenol as needed pain pain/fever Will monitor on cardiac telemetry SCDs to bilateral lower extremity for DVT prophylaxis Does wish to be a full code and this orders written Will discuss further orders and plan of care with attending, Dr. Rocha At time of discharge medical care will return to primary care provider, Dr Hatfield Seen and examined patient on same day as the above note. Agree with history, physical, assessment and plan. Comprehensive physical findings correlate to the above note. HPI: suddenly ill today with fever and malaise. No significant proceeding issues but was in hospital yesterday and required having his pacemaker interrogated and adjusted for better capture PMH/SH/FH: as per above ROS: no further information from 10 system review Exam: vital signs stable as above Gen.:no apparent distress, conversant and pleasant HEENT: normocephalic atraumatic, oral mucosa moderately dry neck: no lymphadenopathy no jugular venous distention respiratory: only slight rhonchi auscultation bilaterally with good excursion cardiovascular: cardiovascular S1 S2 no adventitious murmurs rubs or gallops abdomen/GI: soft nondistended with bowel sounds. Nontender extremities: good peripheral perfusion with no edema skin/integument: no significant injuries or edema neuro: alert and oriented. No focal deficits appreciable psych: responded to all social cues. Mood and affect are appropriate Labs: reviewed noting elevated lactate of 3.2 and pro-calcitonin of 8 imaging: possible infiltrate on chest x-ray EKG: Assessment and plan: SIRS: source of infection is uncertain. I am not confident of pulmonary source but elevated lactate and history fevers is of concern likely healthcare acquired pneumonia: due to age we're avoiding the Levaquin initially but will start with cefepime and azithromycin. No respiratory distress appreciable Patient will need further workup while blood cultures are pending but is unlikely to resolve home tomorrow and 24 hours or less so will place on inpatient status Documented on [employer] speech to text. Efforts to correct speech recognition errors performed, but variation may exist DVT Prophylaxis: SCD's Resuscitation Status: Full Code - Time spent with patient Time with patient PN: 50 minutes - Physician Narrative Physician: other Narrative: Date: 01/13/18 Time: 1650 Hospital Course Summary Disclaimer: The visit summary below is not to be considered part of the above Progress Note. Hospital Course: Impression Severe Sepsis- Pneumonia, Lactate > 3.0 HCAP- Resides at assisted living Acute Elevation of transaminase- POA Anemia- Chronic Hyperlipidemia Hypothyroidism History of squamous cell carcinoma Plan Admit to inpatient status under the care of Dr. Rocha for severe sepsis, pneumonia and elevated transaminase Repeat venous lactate are sepsis protocol Patient was given 1 gram of Rocephin IV while in the emergency room. QSOFA score- 0/3 at time of admission, Reveling likely low mortality risk Will treat with a modified HCAP regimen- Azithromycin 500 mg IV Daily and Cefepime 1 gm IV q 12 hours DuoNeb breathing treatments QID NS at 100 ml/hr for hydration Will need to monitor LFTs and abdomen carefully. At time of admission patient has no abdominal pain or nausea. Will follow with serial abdominal exams. May need to consider abdominal imaging. Tylenol as needed pain pain/fever Will monitor on cardiac telemetry SCDs to bilateral lower extremity for DVT prophylaxis Does wish to be a full code and this orders written Will dis
[2018-01-13] MEDS ORDERED: ALBUTEROL/IPRATROPIUM 2.5mg-0.5mg/3ml NEB AEROSOL SCH (17:00)
[2018-01-13] MEDS ORDERED: NS 1,000 ML IV SCH (17:15)
[2018-01-13 17:53] VITALS: BMI 23.7
[2018-01-13] MEDS: ALBUTEROL/IPRATROPIUM 2.5mg-0.5mg/3ml NEB AEROSOL SCH (20:26)
[2018-01-14] MEDS ORDERED: CEFEPIME 1 GM in D5W 100 ML IV SCH (05:00)
[2018-01-14] MEDS ORDERED: CEFEPIME 1 GM in NS 100 ML IV SCH (06:15)
[2018-01-14] MEDS ORDERED: LEVOTHYROXINE 50 MCG TABLET PO SCH (06:30)
[2018-01-14] MEDS: ALBUTEROL/IPRATROPIUM 2.5mg-0.5mg/3ml NEB AEROSOL SCH ×2 (07:29→11:20)
[2018-01-14] MEDS ORDERED: ATENOLOL 25 MG TABLET PO SCH (09:00)
[2018-01-14] MEDS ORDERED: CEFTRIAXONE (ER USE ONLY) 1 GM in NS 100 ML IV SCH (09:00)
[2018-01-14] MEDS ORDERED: SALINE FLUSH 10ml SYRINGE ONE (09:14)
[2018-01-14] MEDS ORDERED: IOHEXOL 300mg/ml 100ml INJECTION ONE (09:14)
--- NOTE | 2018-01-14 09:41 | Progress Note ---
- Date 01/14/18 Subjective: Mr Parkinson is seen this morning in follow up. He is alert and orientated. He is up in the chair eating breakfast. He reports that he is feeling good and continues to deny all pain or nausea. He does have a mild intermittent cough without productivity. Denisd any abdominal tenderness on palpation. Room air sats 93-95%. Objective Vital signs: Temperature 96.9 F 01/14/18 07:50 Pulse Rate 78 01/14/18 07:50 Respiratory Rate 18 01/14/18 07:50 Blood Pressure 133/79 01/14/18 07:50 Pulse Oximetry 93 01/14/18 07:50 Height/Weight/BMI: Height 1.75 m Weight 73.1 kg Body Mass Index 23.7 - Constitutional Present: no acute distress, well nourished, well developed - Routine HEENT Exam Eye: Present: EOMI ENT: Present: mucous membranes moist, dentition normal - Routine Respiratory Exam Present: CTA bilaterally. Absent: wheezes - Routine Cardiovascular Exam Present: RRR, S1, S2, no murmur. Absent: murmur - Routine Abdominal Exam Present: soft, normoactive bowel sounds, non distended. Absent: tenderness - Routine Extremities Exam Present: normal capillary refill - Routine Skin Exam Present: intact, dry, warm - Routine Neurological Exam Present: alert, oriented X3, CN II-XII intact - Routine Lymphatic Exam Lymphatic: Absent: adenopathy - Routine Psychiatric Exam Present: normal affect Results - Labs CBC & Chem 7: 01/14/18 04:34 01/14/18 04:34 Microbiology Results: Microbiology 01/13/18 16:05 Peripheral/Iv Start Gram Stain - Final 01/13/18 16:05 Peripheral/Iv Start Blood Culture - Preliminary Escherichia coli 01/13/18 15:54 Peripheral/Iv Start Gram Stain - Final 01/13/18 15:54 Peripheral/Iv Start Blood Culture - Preliminary Escherichia coli Assessment and Plan (1) Severe sepsis Current visit: Yes Status: Acute Assessment and Plan: Impression Severe Sepsis- Pneumonia, Lactate > 3.0 HCAP- Resides at assisted living Acute Elevation of transaminase- POA Anemia- Chronic Hyperlipidemia Hypothyroidism History of squamous cell carcinoma Plan Transaminase continue to increase blood cultures were positive with E-coli. Will obtain CT scan of abdomen to rule out intraabdominal process. Venous lactate trending down Continue with Azithromycin for pulmonary coverage and Cefepime BID for bacteremia coverage Will re-draw blood cultures at 72 hours = mon 01/16 SCDs to bilateral lower extremity for DVT prophylaxis Case discussed with attending, Dr Rocha Seen and examined patient on same day as the above note. Agree with notes exam, assessment and plan. Comprehensive physical findings correlate to the above note. Exam: Gen.:no apparent distress, moderately browsable to noxious stimuli HEENT: normocephalic atraumatic, oral mucosa moderately dry neck: no lymphadenopathy no jugular venous distention respiratory: there to auscultation bilaterally with good excursion cardiovascular: cardiovascular S1 S2 no adventitious murmurs rubs or gallops abdomen/GI: within normal limits despite notably abnormal imaging extremities: good peripheral perfusion with no edema skin/integument: no significant injuries or edema neuro: minimally responsive but protecting airway. No focal deficits appreciable psych: alert and oriented conversant and pleasant Labs: noted the climb and now fall in lactate level reaching apex of 3.4. Pro- calcitonin greater than 8 Micro biology: patient is currently growing out E. coli in less than 24 hours in both blood cultures imaging: virtual radiology has read the seat T and found the gallbladder acutely dilated with edema however they fail to note that this gallbladder extends well beyond the top of the ischium. Assessment and plan: E. coli bacteremia: converting from cefepime and azithromycin to meropenem 1 g severe sepsis: secondary number 1 possible cholangitis: added meropenem and contacted surgery likely gangrenous cholecystitis: antibiotics and surgical consult. case discussed with Dr. Shi and he is concerned that this patient will once again require an initial drain of the gallbladder and then afterwards surgical removal. After discussion with the patient's family they note that patient has been to [facility] 6 months ago for problem with the gallbladder prior. They are uncertain why the gallbladder was not removed at that time [facility] 1 call number was contacted and spoke with the hospitalist Dr. Dowd. My appreciation for his acceptance of this patient. Case also discussed with Dr. Calles in gastroenterology. He is aware and will see the patient Documented on [employer] speech to text. Efforts to correct speech recognition errors performed, but variation may exist - Physician Narrative Physician: other Narrative: Date: 01/14/18 Time: 0936 Hospital Course Summary Disclaimer: The visit summary below is not to be considered part of the above Progress Note. Hospital Course: Impression Severe Sepsis- Pneumonia, Lactate > 3.0 HCAP- Resides at assisted living Acute Elevation of transaminase- POA Anemia- Chronic Hyperlipidemia Hypothyroidism History of squamous cell carcinoma 01/13- admission Plan Admit to inpatient status under the care of Dr. Rocha for severe sepsis, pneumonia and elevated transaminase Repeat venous lactate are sepsis protocol Patient was given 1 gram of Rocephin IV while in the emergency room. QSOFA score- 0/3 at time of admission, Reveling likely low mortality risk Will treat with a modified HCAP regimen- Azithromycin 500 mg IV Daily and Cefepime 1 gm IV q 12 hours DuoNeb breathing treatments QID NS at 100 ml/hr for hydration Will need to monitor LFTs and abdomen carefully. At time of admission patient has no abdominal pain or nausea. Will follow with serial abdominal exams. May need to consider abdominal imaging. Tylenol as needed pain pain/fever Will monitor on cardiac telemetry SCDs to bilateral lower extremity for DVT prophylaxis Does wish to be a full code and this orders written 01/14/18 Transaminase continue to increase blood cultures were positive with E-coli. Will obtain CT scan of abdomen to rule out intraabdominal process. Venous lactate trending down Continue with Azithromycin for pulmonary coverage and Cefepime BID for bacteremia coverage Will re-draw blood cultures at 72 hours = mon 01/16 SCDs to bilateral lower extremity for DVT prophylaxis Case discussed with attending, Dr Rocha Addendum entered and electronically signed by Ryann Leiva, VANCE 01/14/18 12 :42: Family is now present. They report that patient had a very similar episode approximately one year ago in which patient had a "infected gallbladder." At that time [facility] was [facility] and had a drain placed. He was discharged home with a MAGGIE drain, however, never had any other interventions as he was told that his gallbladder was "fine". 1115- Consultation with Dr Shi given CT finding with concern for acute cholecystitis. Dr Shi to [facility] to examine patient. He recommends transfer to [facility] as he likely need percutaneous draining with possibility of ERCP, which is not a procedure that can be done at [facility]. Plan is discussed with patient, , daughter. Transfer in process to [facility].
[2018-01-14 11:26] VITALS: O2SAT 99
[2018-01-14 11:35] VITALS: BP 155/93; PULSE 83; RESP 20; TEMP 97.4
--- NOTE | 2018-01-14 14:30 | Consultation ---
DATE OF CONSULTATION 01/14/2018 FINDINGS Mr. Parkinson is an 87-year-old gentleman whom I was asked to see today as a result of his presentation of sepsis, finding of positive bacteremia secondary to E. coli, and today the discovery of acute cholecystitis noted on radiographic evaluation. The patient has somewhat of an unusual history. He informs me that a couple of days ago it felt as if his heart was "going up and down". He states that he did present to our emergency room and had some reprogramming of his pacemaker. It was felt that his symptoms at that time were more cardiac in nature. Patient states that after being seen in the emergency room, he began to pill increasingly more weak and fatigued. He denied any element of abdominal pain. He denied any element of nausea or vomiting. He states that he did begin to run a low grade fever and therefore represented to our facility for further care. Despite being 87, the patient is overall fairly healthy and lives independently in a nearby halfway/care facility. The patient was found to have sepsis upon representation to the emergency room and was admitted to our facility for further care. Upon my entering the hospital room today, he was sitting upright in the bed and was quite conversant. He denied any element of abdominal pain today. He states that he did have a regular breakfast without difficulty. His main complaint was that of feeling somewhat "weak and tired". Family was present. Secondary to fact that he did not have any element of abdominal pain, he was without specific aggravating, alleviating or radiating features/symptomatology. PAST MEDICAL HISTORY Chronic Illness/System Disorders 1. History for osteoporosis. 2. History for hyperlipidemia. 3. History for skin cancer. 4. History for underlying cardiac arrhythmias requiring placement of pacemaker , prior aortic valvular disease. PAST SURGICAL HISTORY 1. Bilateral inguinal hernia repair, 2. Aortic valve replacement with tissue valve. 3. Prior placement of permanent pacemaker. 4. Prior cardiac catheterizations. 5. Prior bilateral cataract extractions. MEDICATIONS Medications on admission included: 1. Aspirin. 2. Atenolol. 3. Vitamin D. 4. Synthroid. 5. Tylenol. For complete doses and frequencies please refer to EMR. ALLERGIES BENAZEPRIL. SOCIAL HISTORY Patient denies alcohol or tobacco use. 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 FAMILY HISTORY His parents as a result of heart failure and Alzheimer's. Also has a family history for diabetes within his father. REVIEW OF SYSTEMS Review of systems was undertaken with the patient and was essentially negative except as stated above in Findings section and Past Medical History section for constitutional, HEENT, cardiac, respiratory, GI, , musculoskeletal, hematologic/oncologic, endocrine, and psychiatric. PHYSICAL EXAMINATION GENERAL: Mr. Parkinson is an 87-year-old gentleman who this morning did not appear to be in any acute distress. VITAL SIGNS: Patient has been afebrile since admission but reportedly had fever prior to his presentation. Last recorded vitals include temperature 97.4 , pulse 83, respirations 20, blood pressure 155/93, SaO2 99% on room air. HEENT: Normocephalic. Pupils are equally round and react to light and accommodation. NECK: Supple without lymphadenopathy. CHEST: Clear to auscultation bilaterally. HEART: Regular rate and rhythm. Normal S1, S2, without gallops, murmurs or clicks. ABDOMEN: I was quite surprised upon physical examination today the patient did not display any element of abdominal pain. I did palpate quite firmly within the right subcostal region as well as along the right lateral abdominal wall where his gallbladder was found to be massively dilated and inflamed upon CT scan. Surprisingly, this did not elicit any discomfort to the patient. His abdomen was completely soft and nontender throughout. No evidence for guarding or rebound. EXTREMITIES: Without clubbing, cyanosis, or edema. NEURO: Cranial nerves II-XII grossly intact. Patient without focal, motor, or sensory deficits. LABORATORY/RADIOGRAPHIC REVIEW Patient had a CBC today and his white count was 10.4. Hemoglobin was 12.3. CMP was obtained and his total bilirubin was elevated to 0.9. AST, ALT, alkaline phosphatase were elevated at 656, 568 and 212, respectively. Procalcitonin level was elevated at 8.22. Upon admission his plasma lactate was elevated at 3.4. It remains elevated at 2.4. I reviewed his CT scan personally as well as the dictated report from the teleradiologist. Gallbladder is significantly dilated and begins beneath the liver and extends to the right anterior iliac spine region. Gallbladder is adjacent to the abdominal wall. There is a thick enhancing gallbladder wall present. There is a component of pericholecystic fluid, all indicative for acute cholecystitis. It should also be noted that his liver enzymes were present a couple of days ago when he had initially presented to the emergency room facility. Additionally I do not see that the patient has had a lipase level obtained to rule out associated pancreatitis. From a microbiology standpoint, the patient has had two positive blood cultures revealing E. coli. Additionally upon chest x-ray, he was found to have the beginning of left lower lobe pneumonia. ASSESSMENT 87-year-old gentleman with acute cholecystitis, resulting in bacteremia, sepsis , and a component of left lower lobe pneumonia. PLAN I informed the patient and his family that at times people who are elderly do not present in a typical fashion with an inflammatory intraperitoneal process. I informed the patient and his family that as a general rule when someone presents with his degree of acute cholecystitis they are found to be exquisitely tender upon palpation. This is indicative that he is not able to mount much of an immune response as a result of his severe infection. I informed the patient and his family that I felt that he was "more ill" than he appeared and truly was septic. I informed them that I felt that the underlying cause for his sepsis was indeed the result of acute cholecystitis and I would recommend that intervention therefore be undertaken. I do feel however that he would be at a significant operative risk as a result of the above circumstances and it would be my recommendation that he be transferred to [facility] to undergo a percutaneous cholecystotomy. Unfortunately we do not have interventional radiologist available to perform this procedure. Furthermore, his bilirubin is already elevated at 3 which could be indeed a result of choledocholithiasis versus elevation of his bilirubin as a result of his acute cholecystitis. If over the next couple of days his bilirubin would begin to increase following percutaneous cholecystotomy if he is at a larger tertiary care facility, they will have the ability then to undergo ERCP which we do not have at our facility. In summation, it would be my recommendation that the patient be transferred to [facility]/larger tertiary care facility for further care consisting of percutaneous cholecystotomy and have Gastroenterology abilities if needed. The above recommendation was discussed with family and the hospitalist system. CHIP
[2018-01-14] MEDS ORDERED: MEROPENEM IV SCH (17:00)
[2018-01-14] MEDS ORDERED: D5W IV SCH (17:00)
--- NOTE | 2018-01-14 18:55 | Discharge Summary ---
Discharge Information Date of admission: 01/13/18 16:43 Anticipated date of discharge: 01/14/18 Attending Physician: Pio Rocha MD Primary care physician: Justus Hatfield MD Consults: 01/14/18 11:14 Physician Consult [CONS] Routine Consulting Provider: Asim Shi Reason For Exam: distended gallbladder Ordering Provider has Notified Cso: Yes - Discharge Diagnosis (1) Severe sepsis Status: Acute - Laboratory Labs: 01/14/18 04:34 01/14/18 04:34 - Microbiology Microbiology 01/13/18 15:54 Peripheral/Iv Start Gram Stain - Final 01/13/18 15:54 Peripheral/Iv Start Blood Culture - Preliminary Escherichia coli 01/13/18 16:05 Peripheral/Iv Start Gram Stain - Final 01/13/18 16:05 Peripheral/Iv Start Blood Culture - Preliminary Escherichia coli History of Present Illness HPI: Patient is an 87-year-old male who was evaluated in the emergency room yesterday for shortness of breath and weakness. Patient had lab and radiology studies. He was not found to have any acute process. At that time. His pacemaker was interrogated and it was recommended that he follow up with Dr. Bloom for further evaluation of atrial leads. Patient was discharged back to [facility] where he resides independently with his . He reports that today he felt more fatigued accompanied by a cough. He return to the emergency room, given a fever of 100.7. Today laboratory studies didn't significantly change from yesterday. White count yesterday was 6.2, today is 9.1 with 89% neutrophils and 3% bands. Electrolytes remained normal. However, total bilirubin increased from 1.1-3.0 along with AST, increasing from 33-->649 , ALTs 43-->346 and alkaline phosphatase increasing from 108-->220. CRP today is found to be elevated at 13.3. Venous lactate is found to be critically high at 3.2. Chest x-ray did reveal left lower lobe pneumonia. Patient was given 1 liter of IV fluids, and started on IV Rocephin. The hospitalist services were contacted and accepted patient for inpatient admission for further evaluation and treatment Objective Vital signs: Temperature 97.4 F 01/14/18 11:33 Pulse Rate 83 01/14/18 11:33 Respiratory Rate 20 01/14/18 11:33 Blood Pressure 155/93 H 01/14/18 11:33 Pulse Oximetry 99 01/14/18 11:33 Height/Weight/BMI: Height 5 ft 9 in Weight 73.1 kg Body Mass Index 23.7 - Constitutional Present: well nourished, well developed - Routine HEENT Exam Eye: Present: EOMI ENT: Present: mucous membranes moist, dentition normal - Routine Respiratory Exam Present: CTA bilaterally. Absent: wheezes - Routine Cardiovascular Exam Present: RRR. Absent: murmur - Routine Abdominal Exam Present: soft, normoactive bowel sounds, non distended. Absent: tenderness - Routine Extremities Exam Present: normal capillary refill - Routine Skin Exam Present: dry, warm - Routine Neurological Exam Present: alert, oriented X3, CN II-XII intact - Routine Lymphatic Exam Lymphatic: Absent: adenopathy - Routine Psychiatric Exam Present: normal affect Hospital Course This is a general summary of the patient's hospital course. For more details refer to the complete medical record. Hospital course: Impression Severe Sepsis- Pneumonia, Lactate > 3.0 HCAP- Resides at assisted living Acute Elevation of transaminase- POA Anemia- Chronic Hyperlipidemia Hypothyroidism History of squamous cell carcinoma 01/13- admission Plan Admit to inpatient status under the care of Dr. Rocha for severe sepsis, pneumonia and elevated transaminase Repeat venous lactate are sepsis protocol Patient was given 1 gram of Rocephin IV while in the emergency room. QSOFA score- 0/3 at time of admission, Reveling likely low mortality risk Will treat with a modified HCAP regimen- Azithromycin 500 mg IV Daily and Cefepime 1 gm IV q 12 hours DuoNeb breathing treatments QID NS at 100 ml/hr for hydration Will need to monitor LFTs and abdomen carefully. At time of admission patient has no abdominal pain or nausea. Will follow with serial abdominal exams. May need to consider abdominal imaging. Tylenol as needed pain pain/fever Will monitor on cardiac telemetry SCDs to bilateral lower extremity for DVT prophylaxis Does wish to be a full code and this orders written 01/14/18 Transaminase continue to increase blood cultures were positive with E-coli. CT showed acute inflammation of the gallbladder with extreme dilation all the way down into the pelvic girdle Venous lactate trending down Dr. Shi was contacted for what appeared to be a gangrenous gallbladder with potential acute cholangitis after his examination he referred to [facility] in [place] due to need for gastroenterology specialty care for further information see progress note today patient transferred to [facility] Time spent with patient: greater than 35 minutes Resuscitation Status: Full Code Discharge Plan - Discharge Disposition Discharge Date: 01/14/18 Disposition: 02 To [facility] Acute Care *Condition: Critical Reason For Visit (Visit label in EMR): acute cholangitis/gangrenous gallbladder , septic - Discharge Medications *Discharge Medications: No Action Cholecalciferol (Vitamin D3) [Vitamin D3] 5,000 unit PO DAILY Levothyroxine Sodium 50 mcg PO ACB Atenolol [Tenormin] 25 mg PO BID Aspirin [Adult Aspirin] 81 mg PO DAILY Acetaminophen [Tylenol] 650 mg PO PRN PRN PRN Reason: Pain - Discharge Packet/Instructions *Pending Lab/Results: No Pending Lab - Referrals/Follow Up - Patient Handouts - Dismissal Complete Discharge Instructions are:: Complete Physician Narrative - Narrative Physician: other Attestation Narrative: Date: 01/14/18 Time: 1851
--- NOTE | 2018-01-15 10:05 | CT Scan Report ---
Indication: Sepsis, Elevated LFTs, bacteremia PROCEDURE: CT abdomen pelvis w con: Encounter: Initial Comparison: None Technique: Axial CT images were performed through the abdomen and pelvis after the administration of intravenous contrast. Coronal and sagittal two-dimensional reformats. Automated Exposure Control and Iterative Reconstruction dose reducing techniques were utilized. Contrast: Omnipaque 300 89 mL Findings: Lower lobe atelectasis with trace effusions. The liver shows probable transient perfusion phenomenon in the anterior right lobe. No liver mass. Gallbladder is distended with significant gallbladder wall edema and surrounding inflammatory change. There is dilatation of the extrahepatic common duct up to 12 mm without clear obstructing stone. The spleen, pancreas and adrenal glands are within normal limits. Superior pole left renal cyst. Left inguinal hernia containing fluid. Bladder is normal. Colonic diverticulosis without evidence of acute diverticulitis. Bone windows show mild degenerative change in the spine along with a severe old L2 compression fracture. Impression: 1. Gallbladder distention with gallbladder edema and prominence of the extrahepatic common duct raising strong suspicion for acute cholecystitis. Choledocholithiasis cannot be excluded. Gallbladder ultrasound is recommended for further evaluation along with surgical consultation. 2. Small pleural effusions. There is a preliminary report by [employer]. .
== END 2018-01-14 11:15 | disposition short-term general hospital (02) | DRG 871 ==
LOC: ED 14:32 → MED 16:43
PROVIDERS: ADMIT Family Medicine; ATTEND Family Medicine

== ENCOUNTER 2018-01-27 15:00 | Inpatient (IN) ==
[2018-01-27] MEDS ORDERED: SENNA + DOCUSATE TABLET PO PRN (15:44)
[2018-01-27] MEDS ORDERED: ACETAMINOPHEN 650 MG SUPPOSITORY PR PRN (15:44)
[2018-01-27] MEDS ORDERED: ONDANSETRON 4 MG TABLET PO PRN (15:44)
--- NOTE | 2018-01-27 16:40 | IRU History & Physical Report ---
HPI IRU Date: Date: 01/27/18 Time: 163 Chief complaint: I'm very weak HPI: Mr. Parkinson is a very pleasant 87-year-old male interviewed on inpatient rehabilitation. Referring physician is Asim Phan MD at [facility]. Surgeon is Radha Velazquez MD at [place]. His primary care physician is Justus Hatfield M.D. The patient lives in assisted living at [place] with his . He presented initially to the emergency department on 01/12/2018 with feeling short of breath. Interrogation of his pacemaker indicated undersensing of an atrial lead. Adjustments were made in the emergency department to the patient's pacemaker settings under the direction of Dr. Frost and he seemed to improve. He was dismissed from the emergency department at that time. He then returned to the emergency department on 01/13/2018 (the next day) with a fever of 100.7. Chest radiograph revealed left lower lobe increased markings consistent with aspiration or infiltrate. He was admitted to the hospital. His liver enzymes dramatically increased over a period of about 24 hours (AST increased from 33 up to 649. ALT increased from 43 up to 346. Alkaline phosphatase increased from 108 up to 220.) He was initially treated for healthcare associated pneumonia with sepsis. Abdominal pelvic CT scan with contrast done on 01/14/2018 demonstrated severe gallbladder distention with gallbladder edema and prominence of extrahepatic common duct raising suspicion for acute cholecystitis. Consultation was placed to Dr. Shi who recommended transfer to a higher level of care because of need for cholecystotomy and possible ERCP. He was discharged from [facility] on 01/14/2018 and admitted to [facility]. On 01/14/2018 he was seen by Radha Velazquez M.D., surgeon. He was taken to surgery and found to have acute on chronic cholecystitis with hydrops of gallbladder. The gall bladder was large and "floppy" and friable. An open cholecystectomy was done. Due to the friable nature of the GB, iatrogenic common bile duct injury occurred. Cholangiogram revealed no evidence of stones. On 01/25/2018 a biliary drain was placed (acute percutaneous cholangiogram and upsizing of the patient's biliary drain from 12 Sinhala to 18 Sinhala). A small amount of extravasation along the right aspect of the distal common bile duct likely represented small contained fistulous tract was seen. It is noted that the patient apparently had a percutaneous cholecystotomy tube placed February 2017. A month or so later it was pulled and he had a cholangiogram done through the cholecystotomy tube and the duct was normal without stones. Dr. Velazquez, patient's [place] surgeon, states he can start clear liquids, nectar thickened. However he is not to advance his diet until a repeat study in 2 weeks. He needs to be on TPN in the interim. He remains on cefazolin at the present time for another 24 hours. In addition he is on fluconazole intravenously for 7 days due to "thrush." There is mention made of need to flush at least one of the drains daily. However that order is not present on the transfer medication administration record. I have contacted Dr. Velazquez via her office and left a message for her to call me back to clarify this. The patient's white count continues to be elevated at 21,000 as of 01/26/2018 based on laboratory from [place]. His hemoglobin is 9.4. Patient underwent modified barium swallow with speech therapy on 01/26/2018 demonstrating oropharyngeal dysphagia. He had a weak swallowing function mechanism with prominent residual material. Tracheal aspiration was noted with thin barium. Speech therapy recommended nectar thickened liquids and aspiration precautions. Upon directly interviewing the patient today, he seems to be fairly unaware of what is going on. He was not sure why he went to the hospital in the first place. He is aware that his gallbladder has been removed. I discussed the case with the patient and with his family today. He is in favor of the 3 hours of therapy and is willing to work so that he can go back to his assisted living apartment. Prior level of functioning indicates that the patient was independent for all activities. Current level of functioning indicates that he is independent for eating but requires supervision for grooming, maximal assistance for bathing, moderate assistance for upper and lower body dressing, minimum assistance for toileting and toilet transfers. He requires moderate assistance for arising from supine to sit. He requires total assistance for walking with a rolling walker 15 feet. He lives with his in an independent living apartment and [place]. He did not use any assistive device prior to this. In addition, I asked the patient if he wanted to be resuscitated in the event of an arrest. On his recent admission here he was a full code. He initially told me he did not want to be resuscitated today. He then asked his and she stated that she did want him resuscitated. He then changed his mind. I told him that I would leave it that he was a full code unless they discussed it and changed their mind. The following medical conditions are noted and require active monitoring and/or management: 1. 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 2. Protein calorie malnutrition, requiring TPN 3. Status post open cholecystectomy with hepaticojejunostomy and biliary leak 4. Dysphagia requiring clear liquids, nectar thickened only 5. Atrial fibrillation; not currently on full dose anticoagulation 6. Coronary artery disease: no current chest pain The following therapies will be needed: 1. Physical therapy: for transfers and ambulation and stairs. 2. Occupational therapy: for ADL's and transfers. 3. Medical management: for the above conditions. 4. 24 hour Rehabilitation Nursing to monitor and address the following: Patient requires close monitoring of his drains and wounds. He requires monitoring of his vital signs to avoid hypertension or hypotension. He requires 24-hour rehabilitation nursing for administration of total parenteral nutrition. 5. Dietitian: in view of malnutrition [facility] Patient Stated Medical History Cardiac Arrhythmia Yes Clinic Medical History (Last Reviewed 01/13/18 @ 16:57 by Ryann Leiva APRN) Osteoporosis (Chronic Medical) Hyperlipidemia (Chronic Medical) Hx of squamous cell carcinoma (Acute Medical) R cheek 2005 Actinic keratosis (Chronic Medical) Seborrheic dermatitis (Chronic Medical) Medical History Updates: 1. Prosthetic aortic valve, porcine. 2. Atrial fibrillation. 3. Osteoporosis. 4. Coronary artery disease. 5. Anemia Surgical History: Bilat. inguinal hernia repair 2002. 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 Pacemaker 09/2012 ([employer]reet). Heart cath 2013 with no interventions. Cataracts removed bilat. 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 Review of Systems - Constitutional Constitutional: Present: anorexia, fatigue, weakness. Absent: chills, fever(s) , headache(s), lethargy, night sweats, weight gain, weight loss - [facility] Eyes: Absent: blurry vision, change in vision, diplopia Mouth/Throat: Present: changes in swallowing (abnormal swallow study in [place]. ). Absent: painful swallowing, change in taste, bleeding gums, change in voice - Cardiovascular Cardiovascular: Absent: chest pain, palpitations, syncope, dyspnea on exertion, orthopnea, edema, cyanosis, heart murmur Rhythm: Present: abnormal rhythm (history of atrial fibrillation and pacemaker placement.) Vascular: Absent: intermittent claudication, pedal edema, unilateral swelling - Respiratory Respiratory: Present: cough, dyspnea on exertion. Absent: dyspnea, hemoptysis, wheezing, pain on inspiration, chest congestion, excessive phlegm production - Gastrointestinal Gastrointestinal: Present: constipation. Absent: abdominal pain, change in bowel habits, diarrhea, dyspepsia, dysphagia, early satiety, hematochezia, melena, nausea, vomiting Gastrointestinal Comments: Patient reports some fecal incontinence for the past couple of days. Prior to that he was constipated. - Musculoskeletal Musculoskeletal: Absent: abnormal gait, arthralgias, back pain, joint swelling, limited range of motion, muscle weakness - Integumentary/Breasts Integumentary: Absent: alopecia, erythema, lesions, pruritus, rash, jaundice - Neurological Neurological: Present: weakness. Absent: abnormal gait, abnormal movements, abnormal speech, confusion, convulsions, dizziness, focal weakness, frequent falls, headache(s), loss of vision, memory loss, numbness, paresthesias, tremor( s) - Psychiatric Psychiatric: Absent: abnormal sleep pattern, anxiety, depression - Endocrine Endocrine: Absent: cold intolerance, flushing, heat intolerance, palpitations - Hematologic/Lymphatic Hematologic/Lymphatic: Absent: easy bleeding, easy bruising, lymphadenopathy - Allergic/Immunologic Allergic/Immunologic: Absent: urticaria Medications Home Medications Medication Instructions Recorded Confirmed Type Levothyroxine Sodium 50 mcg PO ACB 01/12/18 01/27/18 History Acetaminophen 2 tab PO Q4HR PRN 01/27/18 01/27/18 History Acetaminophen Supp [Tylenol] 650 mg AR Q4HR PRN 01/27/18 01/27/18 History Atenolol [Tenormin] 12.5 mg PO DAILY 01/27/18 01/27/18 History Heparin Sodium,Porcine [Heparin 5,000 unit IJ Q8HR 01/27/18 01/27/18 History Sodium] Ondansetron HCl [Zofran] 4 mg PO Q4HR PRN 01/27/18 01/27/18 History Pantoprazole IV [Protonix IV] 40 mg IV DAILY 01/27/18 01/27/18 History Senna + Docusate [Senna Plus 1 each PO BID PRN 01/27/18 01/27/18 History Tablet] Allergies Allergy/AdvReac Type Severity Reaction Status Date / Time benazepril Allergy Airway Verified 01/13/18 14:50 Obstruction Results IRU - Labs Labs: I have reviewed data from recent inpatient admission at [facility] as well as information from [facility] in [place]. Exam Vital Signs: Temperature 98.0 F 01/27/18 15:40 Pulse Rate 70 01/27/18 15:40 Respiratory Rate 18 01/27/18 15:40 Blood Pressure 134/67 01/27/18 15:40 Height/Weight/BMI: Height 1.75 m Weight 76 kg Body Mass Index 24.7 - Constitutional Present: no acute distress, well developed, average body habitus, cooperative - Routine HEENT Exam Head: Present: normocephalic, atraumatic. Absent: cushingoid faces, abrasion, laceration, hematoma Eye: Present: EOMI, PERRL. Absent: conjunctival icterus, scleral injection, periorbital swelling, nystagmus ENT: Present: mucous membranes moist, oropharynx clear - Routine Neck Exam Present: supple, full ROM, trachea midline. Absent: lymphadenopathy, thyromegaly, tenderness, swelling - Routine Chest/Breast/Axilla Exam Chest wall: Absent: tenderness, mass Axillae: Absent: lymphadenopathy, mass - Routine Respiratory Exam Present: decreased breath sounds, CTA bilaterally. Absent: accessory muscle use , prolonged expiratory phase, rales, respiratory distress, rhonchi, stridor, wheezes, crackles, distant breath sounds - Routine Cardiovascular Exam Present: RRR (at present his heart appears to be regular. He is reported to have had atrial fibrillation.), S1, S2, murmur. Absent: gallop, S3, S4, click, irregular rhythm - Routine Abdominal Exam Present: soft, normoactive bowel sounds, tenderness (Tenderness noted on abdomen.), non distended, wound (he has 2 drainage tubes noted as well as a horizontal incision which is stapled in the right upper quadrant. One drain is inferior to the incision. There is slight redness around the entrance site without purulent discharge. Second drain is more in the right flank area.). Absent: rebound, guarding, firm, rigid, organomegaly, mass, hernia - Routine Extremities Exam Present: edema, non tender, pulses intact (pulses are actually quite good in the lower extremities at present.), normal capillary refill. Absent: cyanosis, clubbing - Routine Back/Spine/Pelvis Exam Back/Spine: Present: full ROM. Absent: scoliosis, kyphosis - Routine Skin Exam Present: intact, dry, warm. Absent: cyanosis, erythema, pallor, mottling, petechiae, urticaria, lesions, jaundice - Routine Neurological Exam Present: alert, oriented X3, CN II-XII intact, moving all extremities, normal speech - Routine Psychiatric Exam Present: normal affect, normal thought process, cooperative. Absent: depressed , anxious Sepsis Assessment - Evaluation Severe Sepsis: none seen IRU A/P (1) Myopathy Current visit: Yes Status: Acute The patient has had significant and critical illness with his acute on chronic cholecystitis with subsequent bile leak, left lower lobe pneumonia and virtually no oral intake for at least a week. He is generally weak. He does have need for moderate assistance with arising from supine to sit position. He will require a multidisciplinary approach with PT and OT. (2) Protein-calorie malnutrition, moderate Current visit: Yes Status: Acute He has been without adequate oral intake for some time. He is on TPN at the present time and we will continue this for a minimum of 2 weeks. (3) Bile leak, postoperative Current visit: Yes Status: Acute Patient has a postoperative bile leak. He is to be on only nectar thickened clear liquids for at least 2 weeks until cleared by surgery. (4) Dysphagia, oropharyngeal phase Current visit: Yes Status: Acute Based on swallow study, the patient has oropharyngeal dysphagia. He is to be on nectar thickened clear liquids only for at least 2 weeks. He may have ice chips. DVT Prophylaxis: SCD's, SQ Heparin Resuscitation Status: Full Code - Course Hospital Course: Les Lynch MD: - Interventions to Obtain Goals Goals Progress/Modifications: This medically complex patient requires a multidisciplinary approach. He is on TPN due to malnutrition. In addition he is on oral clear liquids, nectar thickened only due to his dysphagia as well as the bile leak. Patient does have generalized weakness. He requires moderate assistance to arise from supine to sitting position. Has evidence of generalized weakness and has evidence of critical illness myopathy.
[2018-01-27] MEDS ORDERED: DEXTROSE 50% SYRINGE 50ml (1 AMP) IVP PRN (16:46)
[2018-01-27] MEDS ORDERED: GLUCOSE ORAL GEL 40% 37.5gm PO PRN (16:46)
[2018-01-27] MEDS ORDERED: INSULIN ASPART 100unit/ml INJECTION SQ PRN (16:46)
[2018-01-27] MEDS ORDERED: HEPARIN SODIUM PORCINE 5000 UNIT IJ SCH (17:00)
[2018-01-27] MEDS ORDERED: [UNRECOGNIZED DRUG - OTHER] IJ SCH (17:00)
--- NOTE | 2018-01-27 17:00 | IRU 24Hr Post Admit Eval ---
24 Hr Post Admission Physical - Relevant Changes Relevant Changes: No Reviewed: I have reviewed the patient's information and concur with the finding and results of the pre-admission screen. Certification: I certify the patient for rehabilitation. - Patient Condition (1) Myopathy Status: Acute Code(s): G72.9 - Myopathy, unspecified Classification: Present on IRF Admission, IRF Tx That Should Address Diagnosis (2) Protein-calorie malnutrition, moderate Status: Acute Code(s): E44.0 - Moderate protein-calorie malnutrition Classification: Present on IRF Admission, IRF Tx That Should Address Diagnosis, Diagnosis Requiring Medical Follow Up (3) Bile leak, postoperative Status: Acute Code(s): K91.89 - Other postprocedural complications and disorders of digestive system; K83.8 - Other specified diseases of biliary tract Classification: Present on IRF Admission, IRF Tx That Should Address Diagnosis, Diagnosis Requiring Medical Follow Up (4) Dysphagia, oropharyngeal phase Status: Acute Code(s): R13.12 - Dysphagia, oropharyngeal phase Classification: Present on IRF Admission, IRF Tx That Should Address Diagnosis, Diagnosis Requiring Medical Follow Up - Prior Functional Status Lives With: Spouse Residence Type: Assisted Living Assitive Devices: None Prior Functional Status: Indep. at home or school - Current Functional Status Current Level of Function: Current level of functioning indicates that he is independent for eating but requires supervision for grooming, maximal assistance for bathing, moderate assistance for upper and lower body dressing, minimum assistance for toileting and toilet transfers. He requires moderate assistance for arising from supine to sit. He requires total assistance for walking with a rolling walker 15 feet. Failed Alternative Therapy: Arrived from Acute Care Patient Requirements: The patient requires oversight by rehabilitation physician to manage their rehabilitation treatment plan and multidisciplinary approach to care that can only be provided in an IRF and requires a multidisciplinary approach to care, provided by professional PTs, OTs, STs, dieticians, RTs, rehabilitation nurses and is not available in lesser levels of care. Limitations Req: Mobility Impairment, ADL Impairment Physical Therapy Minutes: 90 Occupational Therapy Minutes: 90 Therapy: The patient is to receive therapy at least 5 days a week. - Complications/Comorbidities Impact on Functional Outcomes: The patient's myopathy will negatively impact his functional outcome. Barriers to Discharge: Weakness, Endurance - Plan to Avoid Complications Plan to Avoid Complications: The patient cannot receive this care in a lesser intensive setting such as [facility] or Outpatient Therapy due to the patient requiring the following : This medically complex patient requires total parenteral nutrition. He requires nectar thickened liquids. He will require a multidisciplinary approach with PT and OT to allow him to return to his former level of function safely. He requires medical supervision in view of these findings.
--- NOTE | 2018-01-27 17:01 | Pharmacy Consult-TPN/PPN ---
Pharmacy Consult-TPN/PPN - Laboratory Information Intake and Output 01/26/18 01/27/18 01/28/18 06:59 06:59 06:59 Weight 76 kg - Consult Information This patient is a Status post open cholecystectomy with hepaticojejunostomy and biliary leak with dysphagia requiring clear liquids, nectar thickened only. Standard TPN formula will continue at the rate of 80mL per hour. Our standard TPN formula is similar to what he has been getting at [place]. BMP and phosphorous is ordered for the a.m. and will adjust our TPN formula based on those results. We will continue with 20% fat emulsion 250mL daily beginning tomorrow at 1600. Thanks
[2018-01-27] MEDS: FLUCONAZOLE PB 200 MG/100 ML BAG IV SCH (17:29)
--- NOTE | 2018-01-27 17:31 | Consult Note ---
Consult Information - Data of Consult Consult date: 01/27/18 Requesting Physician: Les Lynch MD Primary Care Provider: Justus Hatfield MD Family Provider: Dr Justus Hatfield - Consult Narrative Reason for consult: Medical management- TPN History of present illness: Mr Parkinson is a pleasant 87-year-old male who is well known to the hospitalist services from recent admission on 01/14/18 with a diagnosis of sepsis. At that time he was found to have significant elevated LFTs, a CT scan of the abdomen did reveal severe gallbladder distention, gallbladder edema and prominence of extrahepatic common duct raising suspicion for acute cholecystitis. That time he was seen in consultation by Dr. Shi, on-call general surgeon who recommended to transfer to [facility] for possible ERCP and cholecystectomy. An open cholecystectomy was performed by Dr. Radha Velazquez. However, given the friable nature of the gallbladder, injury to the bile duct was present. On 01/25 A biliary drain was placed, acute percutaneous: Exam and upsetting the patient's biliary drain from 12 Green[place] to 18 [place]. A small amount of extravasation along the right aspect of the distal common bile duct likely represented small contained fistulous tract was seen. Recommended by Dr. Velazquez that patient be on a clear liquid diet only with nectar thick liquids. He is not to advance his diet until follow-up study in 2 weeks. He will continue to be on TPN. Of admission. He is noted to be on Cefzil is Vero as well as fluconazole for oral thrush. Is noted he underwent modified barium swallow with speech therapy on 01/26/2018 demonstrating oropharyngeal dysphagia. He had a weak swallowing function mechanism with prominent residual material. Tracheal aspiration was noted with thin barium. Speech therapy recommended nectar thickened liquids and aspiration precautions. Past Medical History Medical History: Medical History (Last Reviewed 01/27/18 @ 17:31 by Ryann Leiva, [facility]) Osteoporosis (Chronic) Hyperlipidemia (Chronic) Hx of squamous cell carcinoma (Acute) R cheek 2005 Actinic keratosis (Chronic) Seborrheic dermatitis (Chronic) Medical History Updates: 1. Prosthetic aortic valve, porcine. 2. Atrial fibrillation. 3. Osteoporosis. 4. Coronary artery disease. 5. Anemia Surgical History: Open Cholecystectomy 01/14/18- Dr Radha Velazquez [facility]. A biliary drain- 01/25/18- Dr Radha Velazquez- [facility]. Bilat. inguinal hernia repair 2002. 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 Pacemaker 2012 (Jaspreet). Heart cath 08/2013 with no interventions. Cataracts removed bilat. 03/2016 Family History: Father , at age 90 Diabetes CHF (congestive heart failure) Mother , at age 92 Alzheimer's dementia Family History: As Above - Social History Smoking status: Never smoker Substance use type: does not use Alcohol intake frequency: does not drink Housing: house Household members: spouse Current occupational status: retired ([employer]) Current residence: Assisted Living Social history: PCP Dr Hatfield Review of Systems All systems PM: 10-point ROS was reviewed, no additional remarkable complaints except (Denies ROS at time of examination) Medications Home Medications Medication Instructions Recorded Confirmed Type Levothyroxine Sodium 50 mcg PO ACB 01/12/18 01/27/18 History Acetaminophen 2 tab PO Q4HR PRN 01/27/18 01/27/18 History Acetaminophen Supp [Tylenol] 650 mg [place] Q4HR PRN 01/27/18 01/27/18 History Atenolol [Tenormin] 12.5 mg PO DAILY 01/27/18 01/27/18 History Heparin Sodium,Porcine [Heparin 5,000 unit IJ Q8HR 01/27/18 01/27/18 History Sodium] Ondansetron HCl [Zofran] 4 mg PO Q4HR PRN 01/27/18 01/27/18 History Pantoprazole IV [Protonix IV] 40 mg IV DAILY 01/27/18 01/27/18 History Senna + Docusate [Senna Plus 1 each PO BID PRN 01/27/18 01/27/18 History Tablet] Allergies Allergy/AdvReac Type Severity Reaction Status Date / Time benazepril Allergy Airway Verified 01/13/18 14:50 Obstruction Exam Vital Signs: Temperature 98.0 F 01/27/18 15:40 Pulse Rate 70 01/27/18 15:40 Respiratory Rate 18 01/27/18 15:40 Blood Pressure 134/67 01/27/18 15:40 Height/Weight/BMI: Height 1.75 m Weight 76 kg Body Mass Index 24.7 - Constitutional Present: no acute distress, well nourished, well developed, thin - Routine HEENT Exam Eye: Present: EOMI ENT: Present: mucous membranes moist, dentition normal - Routine Respiratory Exam Present: CTA bilaterally. Absent: wheezes - Routine Cardiovascular Exam Present: RRR, S1, S2, murmur - Routine Abdominal Exam Present: soft, normoactive bowel sounds, non distended, surgical scars ( horizinal incision- amie), drain (Right flank, RUQ ). 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 Lynch for above. Will continue on TPN for nutrition- nectar thickened liquids only. He is to remain on TPN for 2 weeks until reevaluation and further imaging by surgeon. Will monitor electrolytes often. Dr. Velazquez does not feel daily flushing of drains needed. Consultation speech therapy given dysphasia. Cefazolin and for antimicrobial coverage- can be discontinued in 24 hours. Senna plus for bowel motivation. Monitor blood pressures, continue on atenolol. Continue on fluconazole IV for treatment of thrush. Subcutaneous heparin for DVT prophylaxis. Patient and are discussing code status. At this time they would like Full code. Appreciate consultation, the Hospitalist services will continue to follow patient and medically managed during his stay on the IRU unit. Will discuss further orders and plan of care with attending, Dr. Shaw. At time of discharge medical care will return to primary care provider, Dr Hatfield. DVT Prophylaxis: SCD's, SQ Heparin Resuscitation Status: Full Code - Physician Narrative Physician: Stanley Shaw MD Narrative: Date: 01/27/18 Time: 1718 Have independently interviewed and examined pt. Chart reviewed. Case discussed with my MANAGER MATERIAL. Above care plan developed with my supervision; agree with above. Admitted to IRU for restorative therapy following extensive biliary disease with cholecystomy and bile leak. Stabilized medical and able to transfer to aggressive rehabilitation. Needs to continue on TPN as surgery recommend clear liquids only to facility healing of biliary system. Patient reporting no significant ab pain or nausea. Not SOA, but does cough with eating. Strength very decreased-taxing just to move few step. Lungs: decreased, no distress CV: irregular AB: soft nt BD decreased MSE: awake alert Plan: Agree with admission to IRU to maximize functional status. Encourage participation with therapy. Continue with TPN as per surgery recommendations. Daily drain flushing may be stopped per Dr Velazquez. Will need to monitor lab due to TPN. SCDs and SQ Heparin for DVT prevention. Care to return to Dr Hatfield at time of discharge from [facility]. Hospital Course Summary Disclaimer: The visit summary below is not to be considered part of the above Progress Note. 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 Lynch for above. Will continue on TPN for nutrition- nectar thickened liquids only. He is to remain on TPN for 2 weeks until reevaluation and further imaging by surgeon. Will monitor electrolytes often. Dr. Velazquez's does not feel that continued daily flushing of drains needed. Consultation speech therapy given dysphasia. Cefazolin and for antimicrobial coverage - can be discontinued in 24 hours. Senna plus for bowel motivation. Monitor blood pressures, continue on atenolol. Continue on fluconazole IV for treatment of thrush. Subcutaneous heparin for DVT prophylaxis. Patient and are discussing code status. At this time they would like Full code. Appreciate consultation, the Hospitalist services will continue to follow patient and medically managed during his stay on the IRU unit. Will discuss further orders and plan of care with attending, Dr. Shaw. At time of discharge medical care will return to primary care provider, Dr Hatfield.
[2018-01-27] MEDS ORDERED: ALTEPLASE (Cathflo*) 2mg INJECTION IV ONE (18:25)
[2018-01-27] MEDS: HEPARIN SUB-Q 5,000units/0.5ml INJECTION SQ SCH (18:42)
[2018-01-27] MEDS: CEFAZOLIN 1 G in NS 100 ML IV SCH (18:43)
[2018-01-27] MEDS: CLINIMIX-E 5%/20% TPN - STANDARD FORMULA IV SCH (19:32)
[2018-01-28] MEDS: CEFAZOLIN 1 G in NS 100 ML IV SCH ×3 (01:07→17:10)
[2018-01-28] MEDS: HEPARIN SUB-Q 5,000units/0.5ml INJECTION SQ SCH ×3 (01:13→17:11)
[2018-01-28] MEDS: LEVOTHYROXINE 50 MCG TABLET PO SCH (05:36)
--- NOTE | 2018-01-28 08:30 | Pharmacy Consult-TPN/PPN ---
Pharmacy Consult-TPN/PPN - Laboratory Information Chemistry Turbidity < 20 (0-20) 01/28/18 04:18 Sodium 137 MEQ/L (136-146) 01/28/18 04:18 Potassium 4.2 MEQ/L (3.6-5) 01/28/18 04:18 Chloride 110 MEQ/L (98-107) H 01/28/18 04:18 Carbon Dioxide 20 MEQ/L (22-30) L 01/28/18 04:18 Anion Gap 7 meq/L (5-15) 01/28/18 04:18 BUN 19.0 MG/DL (9-20) 01/28/18 04:18 Creatinine 0.7 mg/dL (0.8-1.5) L 01/28/18 04:18 Estimated Creat Clear 54 mL/min (>50) 01/28/18 04:18 GFR Calculation 107 mL/min (>60) 01/28/18 04:18 BUN/Creatinine Ratio 27 RATIO (6-26) H 01/28/18 04:18 Glucose 104 MG/DL (75-110) 01/28/18 04:18 Glucometer 118 mg/dL (65-110) 01/28/18 04:18 Calculated Osmolality 266 MOSM/KG (261-280) 01/28/18 04:18 Calcium 7.8 MG/DL (8.4-10.2) L 01/28/18 04:18 Phosphorus 3.0 MG/DL (2.5-4.5) 01/28/18 04:18 Icterus Index < 2 (0-7) 01/28/18 04:18 Specimen Hemolysis < 15 (0-25) 01/28/18 04:18 Intake and Output 01/27/18 01/28/18 01/29/18 06:59 06:59 06:59 Intake Total 300 / 300 Output Total 1202 / 1202 Balance -902 / -902 Weight 76 kg Intake: IV 300 / 300 Cefazolin 1 g In Ns 100 ml @ 200 / 200 200 mls/hr IV Q8HR [facility] Rx#: [id number] Fluconazole Pb 200 mg In 100 ml 100 / 100 @ 100 mls/hr IV Q24H [facility] Rx#: [id number] Output: Urine 725 / 725 Wound Drainage 477 / 477 Right Abdomen 2 / 2 Right Back 475 / 475 Other: Urine Appearance Cloudy Urine Color Tea Colored Drain Type Right Back biliary # Voids 1 - Consult Information Serum chloride is running at 110. We will continue to monitor chloride and perhaps change the TPN formula to custom with less chloride in formula. We will determine this with 01/29 labs. Continue same rate. Thanks
[2018-01-28] MEDS: ATENOLOL 25 MG TABLET PO SCH (09:52)
[2018-01-28] MEDS: PANTOPRAZOLE 40 MG INJECTION IV SCH (09:52)
--- NOTE | 2018-01-28 13:31 | Progress Note ---
- Date 01/28/18 Subjective: Gorge is seen today while resting in bed. He awakens easily to soft voice stimuli. He denies any current complaints or concerns. No chest pain, shortness of breath, abdominal pain, nausea, vomiting or dysuria. He reports that his appetite is stable and bowels are moving. Nursing reports that he has had more than 500cc of drainage from the biliary drain in his back since his admission and hardly any drainage from his abdominal drain. The dressing around the biliary drain was being changed on exam due to being saturated. The abdominal bandages were clean, dry and intact. Nursing also reports that Mr. Parkinson was noted to be hypoxic with saturations in the 70's during therapy today and improved with rest back into the 90's. He does admit to a cough but is unclear if it is productive. No fevers or chills. CXR on 01/27/18 revealed mild CHF/fluid over load. Weight is up approximately 3-4 kg since initial evaluation on 01/13/18. Objective Vital signs: Temperature 97.6 F 01/28/18 07:00 Pulse Rate 83 01/28/18 07:00 Respiratory Rate 16 01/28/18 07:00 Blood Pressure 124/69 01/28/18 07:00 Pulse Oximetry 99 01/28/18 07:00 Height/Weight/BMI: Height 5 ft 9 in Weight 167 lb 8.821 oz Body Mass Index 24.7 Comments: resting in bed; awakens easily with soft voice stimuli. - Constitutional Present: no acute distress, well nourished, well developed, thin, cooperative - Routine HEENT Exam Head: Present: normocephalic, atraumatic Eye: Present: PERRL. Absent: conjunctival icterus ENT: Present: mucous membranes moist, oropharynx clear - Routine Respiratory Exam Present: decreased breath sounds, crackles (bibasilar). Absent: respiratory distress - Routine Cardiovascular Exam Present: S1, S2, murmur - Routine Abdominal Exam Present: soft, non tender Comments: biliary drain actively draining copious amounts of greenish discharge; dressing to biliary drain saturated and changed on exam; abdominal drain with scant discharge since admission. - Routine Extremities Exam Present: edema (trace bilaterally - pitting), non tender, pulses intact - Routine Back/Spine/Pelvis Exam Back/Spine: Present: full ROM. Absent: vertebral tenderness - Routine Musculoskeletal Exam Musculoskeletal: Present: no clubbing or cyanosis, moving extremities well - Routine Skin Exam Present: dry, warm Comments: Afebrile. 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 Joey Vang. Dysphagia Atrial fibrillation Coronary artery disease Hyperlipidemia Plan - 01/28/18 Patient reports therapy is going well and is tired from increased activity. No other complaints. Continues with TPN for nutrition as well as clear liquid diet only with nectar thickened liquids. He is to remain on TPN and clear liquids for 2 weeks until reevaluation and further imaging by surgeon, Dr. Vang. Electrolytes and renal function stable. Will continue to monitor closely. Blood sugar stable. Biliary drain has put out >500cc green/brown discharge since admission as well as saturating the dressing which was changed today. Abdominal drain with scant discharge. Continue to monitor discharge closely. No need to flush drains daily. Cefazolin treatment to be completed today. Continue fluconazole 200mg IV daily for treatment of thrush through 02/04/18. Leukocytosis (WBC 11.2) noted today. WBC on 01/27/18 was 13.8 per medical records. Will continue to monitor closely. Patient is afebrile. CXR on 01/27/18 revealed mild CHF/fluid overload. Weight is up ~3-4 kgs since initial evaluation on 01/14/18. Will give Lasix 20 mg po now and monitor daily weight closely. Nursing reported hypoxia with exertion with saturation in the 70's during activities. No history of oxygen use at home but did require oxygen while previously hospitalized. Oxygen as needed to maintain SAO2 >90%, weaning as able. Subcutaneous heparin for DVT prophylaxis. Recheck labs in AM to monitor blood counts, electrolytes and renal function. DVT Prophylaxis: SCD's, SQ Heparin GI Prophylaxis: Protonix Resuscitation Status: Full Code - Time spent with patient Time with patient PN: 35 minutes - Physician Narrative Physician: Stanley Shaw MD Narrative: Date: 01/28/18 Time: 1323 Hospital Course Summary Disclaimer: The visit summary below is not to be considered part of the above Progress Note. 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 Lynch for above. Will continue on TPN for nutrition- nectar thickened liquids only. He is to remain on TPN for 2 weeks until reevaluation and further imaging by surgeon. Will monitor electrolytes often. Dr. Velazquez's does not feel that continued daily flushing of drains needed. Consultation speech therapy given dysphasia. Cefazolin and for antimicrobial coverage - can be discontinued in 24 hours. Senna plus for bowel motivation. Monitor blood pressures, continue on atenolol. Continue on fluconazole IV for treatment of thrush. Subcutaneous heparin for DVT prophylaxis. Patient and are discussing code status. At this time they would like Full code. Appreciate consultation, the Hospitalist services will continue to follow patient and medically managed during his stay on the IRU unit. Will discuss further orders and plan of care with attending, Dr. Shaw. At time of discharge medical care will return to primary care provider, Dr Hatfield. Plan - 01/28/18 Patient reports therapy is going well and is tired from increased activity. No other complaints. Continues with TPN for nutrition as well as clear liquid diet only with nectar thickened liquids. He is to remain on TPN and clear liquids for 2 weeks until reevaluation and further imaging by surgeon, Dr. Vang. Electrolytes and renal function stable. Will continue to monitor closely. Blood sugar stable. Biliary drain has put out >500cc green/brown discharge since admission as well as saturating the dressing which was changed today. Abdominal drain with scant discharge. Continue to monitor discharge closely. No need to flush drains daily. Cefazolin treatment to be completed today. Continue fluconazole 200mg IV daily for treatment of thrush through 02/04/18. Leukocytosis (WBC 11.2) noted today. WBC on 01/27/18 was 13.8 per medical records. Will continue to monitor closely. Patient is afebrile. CXR on 01/27/18 revealed mild CHF/fluid overload. Weight is up ~3-4 kgs since initial evaluation on 01/14/18. Will give Lasix 20 mg po now and monitor daily weight closely. Nursing reported hypoxia with exertion with saturation in the 70's during activities. No history of oxygen use at home but did require oxygen while previously hospitalized. Oxygen as needed to maintain SAO2 >90%, weaning as able. Subcutaneous heparin for DVT prophylaxis. Recheck labs in AM to monitor blood counts, electrolytes and renal function.
[2018-01-28] MEDS ORDERED: FUROSEMIDE 20 MG TABLET PO ONE (13:57)
--- NOTE | 2018-01-28 15:41 | XRay Report ---
EXAM: XR chest 1V COMPARISON: Chest x-ray dated 01/13/2018. HISTORY: check PICC placement . FINDINGS: There is a right-sided PICC line with tip projecting over the lower superior vena cava in satisfactory position. No pneumothorax is evident. Unchanged minimal blunting of the bilateral costophrenic angles with bibasilar hazy opacities. Cardiac silhouette is stable and the pulmonary vasculature is within normal limits. IMPRESSION: Line as described. .
[2018-01-28] MEDS: FLUCONAZOLE PB 200 MG/100 ML BAG IV SCH (15:44)
[2018-01-28] MEDS: FAT EMULSION 20% 250 ML IV SCH (15:59)
[2018-01-28] MEDS: CLINIMIX-E 5%/20% TPN - STANDARD FORMULA IV SCH (18:24)
[2018-01-29] MEDS: HEPARIN SUB-Q 5,000units/0.5ml INJECTION SQ SCH ×4 (02:03→18:14)
[2018-01-29] MEDS: LEVOTHYROXINE 50 MCG TABLET PO SCH (06:15)
--- NOTE | 2018-01-29 07:43 | Pharmacy Consult-TPN/PPN ---
Pharmacy Consult-TPN/PPN - Laboratory Information Chemistry Turbidity < 20 (0-20) 01/29/18 04:05 Sodium 136 MEQ/L (136-146) 01/29/18 04:05 Potassium 4.1 MEQ/L (3.6-5) 01/29/18 04:05 Chloride 106 MEQ/L (98-107) 01/29/18 04:05 Carbon Dioxide 22 MEQ/L (22-30) 01/29/18 04:05 Anion Gap 8 meq/L (5-15) 01/29/18 04:05 BUN 19.0 MG/DL (9-20) 01/29/18 04:05 Creatinine 0.7 mg/dL (0.8-1.5) L 01/29/18 04:05 Estimated Creat Clear 53 mL/min (>50) 01/29/18 04:05 GFR Calculation 107 mL/min (>60) 01/29/18 04:05 BUN/Creatinine Ratio 27 RATIO (6-26) H 01/29/18 04:05 Glucose 98 MG/DL (75-110) 01/29/18 04:05 Glucometer 111 mg/dL (65-110) 01/29/18 04:02 Calculated Osmolality 264 MOSM/KG (261-280) 01/29/18 04:05 Calcium 7.9 MG/DL (8.4-10.2) L 01/29/18 04:05 Phosphorus 3.0 MG/DL (2.5-4.5) 01/28/18 04:18 Icterus Index < 2 (0-7) 01/29/18 04:05 Specimen Hemolysis < 15 (0-25) 01/29/18 04:05 Intake and Output 01/28/18 01/29/18 01/30/18 06:59 06:59 06:59 Intake Total 300 / 300 2579.333 / 2579.333 Output Total 1202 / 1202 2580 / 2580 Balance -902 / -902 -0.667 / -0.667 Weight 76 kg 75.4 kg Intake: IV 300 / 300 2379.333 / 2379.333 Cefazolin 1 g In Ns 100 ml @ 200 / 200 200 / 200 200 mls/hr IV Q8HR [facility] Rx#: [id number] Fat Emulsion 20% 250 ml @ 50 250 / 250 mls/hr IV [address] [facility] Rx#: [id number] Fluconazole Pb 200 mg In 100 ml 100 / 100 100 / 100 @ 100 mls/hr IV Q24H [facility] Rx#: [id number] Multi-Vit Infusion 10 ml Multi 1829.333 / 1829.333 -Trace Elements 1 ml In TPN - Standard Formula 2,000 ml @ 80 mls/hr IV .Q24H [facility] Rx#: [id number] Oral 200 / 200 Output: Urine 725 / 725 1950 / 1950 Wound Drainage 477 / 477 630 / 630 Right Abdomen 2 / 2 5 / 5 Right Back 475 / 475 625 / 625 Other: Urine Appearance Cloudy Clear Urine Color Tea Colored Yellow Urine Odor Normal Stool Color Brown Yellow Stool Consistency Loose Size of Bowel Movement Moderate Drain Type Right Back biliary biliary # Voids 1 2 # Incontinent Voids 0 # Bowel Movements 1 # Incontinent Bowel Movements 1 - Consult Information Electrolytes are stable and acceptable. We will continue same TPN formula and rate and continue to monitor. Thanks.
[2018-01-29] MEDS: ATENOLOL 25 MG TABLET PO SCH (09:16)
[2018-01-29] MEDS: PANTOPRAZOLE 40 MG INJECTION IV SCH (09:17)
[2018-01-29] MEDS: FLUCONAZOLE PB 200 MG/100 ML BAG IV SCH (17:02)
[2018-01-29] MEDS: FAT EMULSION 20% 250 ML IV SCH (17:03)
[2018-01-29] MEDS: CLINIMIX-E 5%/20% TPN - STANDARD FORMULA IV SCH (18:15)
[2018-01-30] MEDS: ACETAMINOPHEN 325 MG TABLET PO PRN (00:56)
[2018-01-30] MEDS: HEPARIN SUB-Q 5,000units/0.5ml INJECTION SQ SCH ×3 (00:56→16:52)
[2018-01-30] MEDS: SALINE FLUSH 10ml SYRINGE IV SCH ×3 (03:39→16:28)
[2018-01-30] MEDS: LEVOTHYROXINE 50 MCG TABLET PO SCH (05:41)
[2018-01-30] MEDS: ATENOLOL 25 MG TABLET PO SCH (08:41)
[2018-01-30] MEDS: PANTOPRAZOLE 40 MG INJECTION IV SCH (09:49)
[2018-01-30 10:58] VITALS: BMI 24.5
--- NOTE | 2018-01-30 11:31 | Progress Note ---
- Date 01/30/18 Subjective: Mr Parkinson is seen today in follow up. He is currently resting in bed napping between therapy. He does awake and states that overall he is doing well. He denies having any pain in his abdomen or nausea. He does continue on TPN for nutrition. Denies feeling short of breath and reports his bowels are moving routinely. Last charted bowel movement was Sunday 01/28. Remains on liquid diet only. Objective Vital signs: Temperature 98.2 F 01/30/18 04:30 Pulse Rate 65 01/30/18 04:30 Respiratory Rate 20 01/30/18 04:30 Blood Pressure 124/69 01/30/18 04:30 Pulse Oximetry 93 01/30/18 04:30 Height/Weight/BMI: Height 1.75 m Weight 75.5 kg Body Mass Index 24.5 - Constitutional Present: no acute distress, well nourished, well developed - Routine HEENT Exam Eye: Present: EOMI ENT: Present: mucous membranes moist, dentition normal - Routine Respiratory Exam Present: CTA bilaterally. Absent: wheezes - Routine Cardiovascular Exam Present: RRR. Absent: murmur - Routine Abdominal Exam Present: soft, normoactive bowel sounds, non distended. 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 Joey Vang. Dysphagia Atrial fibrillation Coronary artery disease Hyperlipidemia Plan - 01/30/18 Continues with TPN for nutrition as well as clear liquid diet only with nectar thickened liquids. He is to remain on TPN and clear liquids for 2 weeks until reevaluation and further imaging by surgeon, Dr. Vang. Continue fluconazole 200mg IV daily for treatment of thrush through 02/04/18. Leukocytosis improved. White count 10.2. Hemoglobin stable at 8.7 Need to follow electrolytes and glucose carefully while on TPN Oxygen as needed to maintain SAO2 >90%, weaning as able. Subcutaneous heparin for DVT prophylaxis. DVT Prophylaxis: SCD's, SQ Heparin GI Prophylaxis: Protonix Resuscitation Status: Full Code - Physician Narrative Narrative: Date: 01/27/18 Time: 1718 Hospital Course Summary Disclaimer: The visit summary below is not to be considered part of the above Progress Note. 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 Lynch for above. Will continue on TPN for nutrition- nectar thickened liquids only. He is to remain on TPN for 2 weeks until reevaluation and further imaging by surgeon. Will monitor electrolytes often. Dr. Velazquez's does not feel that continued daily flushing of drains needed. Consultation speech therapy given dysphasia. Cefazolin and for antimicrobial coverage - can be discontinued in 24 hours. Senna plus for bowel motivation. Monitor blood pressures, continue on atenolol. Continue on fluconazole IV for treatment of thrush. Subcutaneous heparin for DVT prophylaxis. Patient and are discussing code status. At this time they would like Full code. Appreciate consultation, the Hospitalist services will continue to follow patient and medically managed during his stay on the IRU unit. Will discuss further orders and plan of care with attending, Dr. Shaw. At time of discharge medical care will return to primary care provider, Dr Hatfield. Plan - 01/28/18 Patient reports therapy is going well and is tired from increased activity. No other complaints. Continues with TPN for nutrition as well as clear liquid diet only with nectar thickened liquids. He is to remain on TPN and clear liquids for 2 weeks until reevaluation and further imaging by surgeon, Dr. Vang. Electrolytes and renal function stable. Will continue to monitor closely. Blood sugar stable. Biliary drain has put out >500cc green/brown discharge since admission as well as saturating the dressing which was changed today. Abdominal drain with scant discharge. Continue to monitor discharge closely. No need to flush drains daily. Cefazolin treatment to be completed today. Continue fluconazole 200mg IV daily for treatment of thrush through 02/04/18. Leukocytosis (WBC 11.2) noted today. WBC on 01/27/18 was 13.8 per medical records. Will continue to monitor closely. Patient is afebrile. CXR on 01/27/18 revealed mild CHF/fluid overload. Weight is up ~3-4 kgs since initial evaluation on 01/14/18. Will give Lasix 20 mg po now and monitor daily weight closely. Nursing reported hypoxia with exertion with saturation in the 70's during activities. No history of oxygen use at home but did require oxygen while previously hospitalized. Oxygen as needed to maintain SAO2 >90%, weaning as able. Subcutaneous heparin for DVT prophylaxis. Recheck labs in AM to monitor blood counts, electrolytes and renal function. Plan - 01/30/18 Continues with TPN for nutrition as well as clear liquid diet only with nectar thickened liquids. He is to remain on TPN and clear liquids for 2 weeks until reevaluation and further imaging by surgeon, Dr. Vang. Continue fluconazole 200mg IV daily for treatment of thrush through 02/04/18. Leukocytosis improved. White count 10.2. Hemoglobin stable at 8.7 Need to follow electrolytes and glucose carefully while on TPN Oxygen as needed to maintain SAO2 >90%, weaning as able. Subcutaneous heparin for DVT prophylaxis.
--- NOTE | 2018-01-30 11:35 | IRU Progress Note ---
- Subjective/Serverity of Illness Date: 01/30/18 Mr. Parkinson was interviewed and examined in his room with inpatient rehabilitation. He states that he does have some easy fatigability. He did have some hypoxemia over the weekend even down into the 70s. However, he is now on room air and seems to be doing quite fine with saturations above 90%. He denies any chest pain. He does have history of known coronary disease but denies any problems in this regard. He continues to demonstrate his myopathic process with reduced ability to transfer from sit to stand (moderate assistance required). However he is very cooperative with therapy and tries to participate well. He does have the malnutrition and is on TPN at the present time and tolerating it well. Laboratory is reviewed. He does have some anemia with hemoglobin around 8 g percent. This appears to be stable. Inspection of the wounds indicate some redness around the drainage tubes both anteriorly and in the right flank. However the wound itself with regard to the amie looks great. The area of redness around the drainage tubes however is nontender and there is no purulence. He remains afebrile. I did visit with Dr. Velazquez in detail on Tuesday when he came in. She does not recommend any flushes of the drains. She was the drains to remain in place as they are until she sees him in follow-up. Exam Vital Signs: Temperature 98.2 F 01/30/18 04:30 Pulse Rate 65 01/30/18 04:30 Respiratory Rate 20 01/30/18 04:30 Blood Pressure 124/69 01/30/18 04:30 Pulse Oximetry 93 01/30/18 04:30 Height/Weight/BMI: Height 1.75 m Weight 75.5 kg Body Mass Index 24.5 - Constitutional Present: well nourished, well developed, cooperative Comments: Easy fatigability. - Routine HEENT Exam Eye: Present: EOMI ENT: Present: mucous membranes moist, dentition normal - Routine Respiratory Exam Present: decreased breath sounds, CTA bilaterally. Absent: wheezes - Routine Cardiovascular Exam Present: RRR (history of reported atrial fibrillation but his rhythm sounds regular at present.), S1, S2, murmur - Routine Abdominal Exam Present: soft, normoactive bowel sounds, non distended, wound. Absent: tenderness Comments: The abdomen remained soft. As noted above the actual open cholecystectomy wound is doing fine. No evidence of infection. However the areas around the MAGGIE drains is red. There is no tenderness and no purulence. He remains afebrile. - Routine Extremities Exam Present: edema, normal capillary refill - Routine Skin Exam Present: dry, warm - Routine Neurological Exam Present: alert, oriented X3, CN II-XII intact - Routine Psychiatric Exam Present: normal affect Results IRU - Labs Labs: Have reviewed drainage amounts from tubes as well as chart data and other providers notes. IRU A/P (1) Myopathy Current visit: Yes Status: Acute Mr. Chawla continues to display evidence of critical illness myopathy. His transfers from sit to stand are requiring moderate assistance. He is cooperative and makes a good effort. He does have easy fatigability. (2) Protein-calorie malnutrition, moderate Current visit: Yes Status: Acute Patient's labs are reviewed and are stable. He remains on TPN and tolerating it well. Blood sugars are adequately controlled. (3) Bile leak, postoperative Current visit: Yes Status: Acute Patient appears to be stable in this regard. Draining about 600 ML out of the anterior drain and minimal out of the bile duct drain. (4) Dysphagia, oropharyngeal phase Current visit: Yes Status: Acute DVT Prophylaxis: SCD's, SQ Heparin Resuscitation Status: Full Code - Course Hospital Course: Les Lynch MD: 01/30/18 11:38 Patient has easy fatigability but cooperates with therapy. Continues to require moderate assistance for transfers. He remains afebrile. Please see above discussion regarding his wounds. - Interventions to Obtain Goals PT Treatment Plan: Balance/Proprioception, Functional Activities, Gait Training , Patient/Family Education, Therapeutic Exercise OT Treatment Plan: ADL (Basic Care), Balance Training, IADL, Pt./Family Education, Ther. Exercise for ADL Goals Progress/Modifications: Mr. Parkinson has tolerated his extensive surgery reasonably well despite his advanced age. He does have easy fatigability and requires rest breaks. He is cooperative and motivated. Continues to require moderate assistance for transfers. He remains afebrile. His oxygen saturations had been low over the weekend but seem to be doing fine now without supplemental oxygen. His lungs sound clear. Please note that the patient's individual plan of care was developed and documented today, requiring review of therapy notes, medical conditions and anticipated functional recovery. This required additional medical decision making with regard to interaction of the patient's medical issues with the anticipated functional recovery. Please see separate document
--- NOTE | 2018-01-30 11:43 | IRU Plan of Care ---
[facility] Overall Plan of Care - Date Date: 01/30/18 - Patient Impairments (1) Myopathy Code(s): G72.9 - Myopathy, unspecified Status: Acute Classification: Present on IRF Admission, IRF Tx That Should Address Diagnosis (2) Debility Code(s): R53.81 - Other malaise Status: Acute Classification: Present on IRF Admission, IRF Tx That Should Address Diagnosis, Diagnosis Requiring Medical Follow Up (3) Bile leak, postoperative Code(s): K91.89 - Other postprocedural complications and disorders of digestive system; K83.8 - Other specified diseases of biliary tract Status: Acute Classification: Present on IRF Admission, IRF Tx That Should Address Diagnosis, Diagnosis Requiring Medical Follow Up (4) Dysphagia, oropharyngeal phase Code(s): R13.12 - Dysphagia, oropharyngeal phase Status: Acute Classification: Present on IRF Admission, IRF Tx That Should Address Diagnosis, Diagnosis Requiring Medical Follow Up (5) Protein-calorie malnutrition, moderate Code(s): E44.0 - Moderate protein-calorie malnutrition Status: Acute Classification: Present on IRF Admission, IRF Tx That Should Address Diagnosis, Diagnosis Requiring Medical Follow Up - Relevant Changes Relevant Changes: No Reviewed: I have reviewed the patient's information and concur with the finding and results of the pre-admission screen. Certification: I certify the patient for rehabilitation. - Medical Prognosis Medical Prognosis: Good Vital Signs: Last Vital Signs Temp 98.2 F 01/30/18 04:30 Pulse 65 01/30/18 04:30 Resp 20 01/30/18 04:30 BP 124/69 01/30/18 04:30 Pulse Ox 93 01/30/18 04:30 - Anticipated Interventions Anticipated Interventions: The patient requires inpatient IRF care for PT, OT, and/or ST for residuals remaining from open cholecystectomy and subsequent bile leak resulting in muscular weakness and strength deficits. An individualized overall plan of care has been developed after careful review of the patient's preadmission screening , post admission physician evaluation and assessments of all therapy disciplines and/or other pertinent clinicians involved in treating the patient. This indicates medical necessity and rehabilitation necessity have been established through a thorough review of all available medical information. - Current Functional Status Failed Alternative Therapy: Arrived from Acute Care Patient Requires: The patient requires oversight by rehabilitation physician to manage their rehabilitation treatment plan and multidisciplinary approach to care that can only be provided in an IRF and requires a multidisciplinary approach to care, provided by professional PTs, OTs, STs, rehabilitation nurses, and may require STs, dieticians, and RTS. This is not available in lesser levels of care. Physical Therapy Minutes: 90 Occupational Therapy Minutes: 90 Therapy: The patient is to receive therapy at least [address] Treatment Plan: Evaluation Only ST Treatment Plan Duration: N/A ST Treatment Plan Frequency: N/A - Anticipated LOS/Outcomes Anticipated Functional Outcome: It is anticipated the patient will be able to return to his assisted living apartment with modified independent level or better level of functioning. It is anticipated that he will continue to require assistance with IADLs. It is also anticipated that he will be able to ultimately return to improved diet orally after he is reviewed by his surgeon. Anticipated Length of Stay (days): 10 Anticipated DC Destination: Other (assisted living) Home Safety Plan: The patient will be provided with the development of a Home Safety Plan for return to a home or home-like environment and and to ensure safety post discharge. - Plan to Avoid Complications Barriers to Attaining Goals: Weakness, Endurance Plan to Avoid Complications: The patient cannot receive this care in a lesser intensive setting such as [facility] or Outpatient Therapy due to the patient requiring the following : This patient has complex medically and has protein calorie malnutrition requiring TPN which requires 24 hour rehabilitation nursing monitoring and administration. He has history of dysphagia and is on a modified limited oral intake diet. He has multiple functional deficits and requires a multidisciplinary coordinated approach with physical therapy and occupational therapy. Medical supervision is required in view of his critical illness myopathy, malnutrition, anemia and management of his TPN.
[2018-01-30] MEDS: FAT EMULSION 20% 250 ML IV SCH (16:26)
[2018-01-30] MEDS: FLUCONAZOLE PB 200 MG/100 ML BAG IV SCH (16:27)
[2018-01-30] MEDS: CLINIMIX-E 5%/20% TPN - STANDARD FORMULA IV SCH (19:21)
[2018-01-31] MEDS: HEPARIN SUB-Q 5,000units/0.5ml INJECTION SQ SCH ×4 (00:50→23:55)
[2018-01-31] MEDS: SALINE FLUSH 10ml SYRINGE IV SCH ×4 (00:50→23:37)
[2018-01-31] MEDS: SALINE FLUSH 10ml SYRINGE IV PRN (00:54)
[2018-01-31] MEDS: LEVOTHYROXINE 50 MCG TABLET PO SCH (06:35)
[2018-01-31] MEDS: ATENOLOL 25 MG TABLET PO SCH (08:16)
[2018-01-31] MEDS: PANTOPRAZOLE 40 MG INJECTION IV SCH (08:16)
--- NOTE | 2018-01-31 12:37 | IRU Progress Note ---
- Subjective/Serverity of Illness Date: 01/31/18 Mr. Parkinson is cooperative with therapy but reports significant easy fatigability. He does have some dyspnea with activity. He denies any chest pains. He reports that his appetite would be better if we would give him more than clear liquids but we are unable to do that at the present time. He does get winded and fatigued with activity. He continues to have evidence of myopathy. However his transfers are improved at contact-guard level. He is able to ambulate with maximum assistance 119 feet with a front-wheeled walker. He requires maximum assistance for upper and lower body dressing. He denies any abdominal pain or the drains are. He is getting around 325 mL out the lateral drain. Exam Vital Signs: Temperature 98.6 F 01/31/18 08:07 Pulse Rate 70 01/31/18 08:07 Respiratory Rate 22 01/31/18 08:07 Blood Pressure 146/75 H 01/31/18 08:07 Pulse Oximetry 98 01/31/18 08:07 Height/Weight/BMI: Height 1.75 m Weight 75.5 kg Body Mass Index 24.5 - Constitutional Present: mild distress (easy fatigability and some dyspnea with exertion.), well nourished, well developed, cooperative - Routine HEENT Exam Eye: Present: EOMI ENT: Present: mucous membranes moist, dentition normal - Routine Respiratory Exam Present: decreased breath sounds, CTA bilaterally. Absent: wheezes - Routine Cardiovascular Exam Present: RRR, S1, S2. Absent: murmur - Routine Abdominal Exam Present: soft, normoactive bowel sounds, non distended. Absent: tenderness - Routine Extremities Exam Present: edema, normal capillary refill - Routine Skin Exam Present: dry, warm - Routine Neurological Exam Present: alert, oriented X3, CN II-XII intact, motor deficit (continues to display proximal muscle weakness based on reduced ability to transfer. However this is improving.) - Routine Psychiatric Exam Present: normal affect Results IRU - Labs Labs: Have reviewed chart data and other providers notes. IRU A/P (1) Myopathy Current visit: Yes Status: Acute He is improving with regard to transfers. Still has easy fatigability. (2) Debility Current visit: Yes Status: Acute (3) Bile leak, postoperative Current visit: Yes Status: Acute (4) Dysphagia, oropharyngeal phase Current visit: Yes Status: Acute Remains on a modified diet with nectar thickened liquids (5) Protein-calorie malnutrition, moderate Current visit: Yes Status: Acute He is tolerating parenteral nutrition without known side effects. DVT Prophylaxis: SCD's, SQ Heparin Resuscitation Status: Full Code - Course Hospital Course: Les Lynch MD: 01/30/18 11:38 Patient has easy fatigability but cooperates with therapy. Continues to require moderate assistance for transfers. He remains afebrile. Please see above discussion regarding his wounds. 01/31/18 12:37 Progressing with therapy. Cooperative but easy fatigability. Continues to require close monitoring regarding his nutritional status with TPN etc. - Interventions to Obtain Goals PT Treatment Plan: Balance/Proprioception, Functional Activities, Gait Training , Patient/Family Education, Therapeutic Exercise OT Treatment Plan: ADL (Basic Care), Balance Training, IADL, Pt./Family Education, Ther. Exercise for ADL
--- NOTE | 2018-01-31 13:39 | Pharmacy Consult-TPN/PPN ---
Pharmacy Consult-TPN/PPN - Laboratory Information Chemistry Turbidity < 20 (0-20) 01/31/18 04:13 Sodium 133 MEQ/L (136-146) L 01/31/18 04:13 Potassium 4.2 MEQ/L (3.6-5) 01/31/18 04:13 Chloride 104 MEQ/L (98-107) 01/31/18 04:13 Carbon Dioxide 21 MEQ/L (22-30) L 01/31/18 04:13 Anion Gap 8 meq/L (5-15) 01/31/18 04:13 BUN 19.0 MG/DL (9-20) 01/31/18 04:13 Creatinine 0.7 mg/dL (0.8-1.5) L 01/31/18 04:13 Estimated Creat Clear 53 mL/min (>50) 01/31/18 04:13 GFR Calculation 107 mL/min (>60) 01/31/18 04:13 BUN/Creatinine Ratio 27 RATIO (6-26) H 01/31/18 04:13 Glucose 105 MG/DL (75-110) 01/31/18 04:13 Glucometer 116 mg/dL (65-110) 01/31/18 09:22 Calculated Osmolality 258 MOSM/KG (261-280) L 01/31/18 04:13 Calcium 7.9 MG/DL (8.4-10.2) L 01/31/18 04:13 Phosphorus 3.3 MG/DL (2.5-4.5) 01/30/18 05:39 Magnesium 1.9 MG/DL (1.6-2.3) 01/30/18 05:39 Total Bilirubin 0.90 MG/DL (0.20-1.30) 01/30/18 05:39 Icterus Index < 2 (0-7) 01/31/18 04:13 AST 25 U/L (17-59) 01/30/18 05:39 ALT 16 U/L (1-50) 01/30/18 05:39 Alkaline Phosphatase 244 U/L (38-126) H 01/30/18 05:39 Total Protein 5.6 g/dL (6.3-8.2) L 01/30/18 05:39 Albumin 2.8 g/dL (3.5-5.0) L 01/30/18 05:39 Globulin 2.8 G/DL (2.4-3.6) 01/30/18 05:39 Albumin/Globulin Ratio 1.0 RATIO (1.1-2.2) L 01/30/18 05:39 Specimen Hemolysis < 15 (0-25) 01/31/18 04:13 Intake and Output 01/30/18 01/31/18 02/01/18 06:59 06:59 06:59 Intake Total 3261 / 3261 2958 / 2958 600 / 600 Output Total 1175 / 1175 50 / 50 50 / 50 Balance 2086 / 2086 2908 / 2908 550 / 550 Weight 75.5 kg 77.5 kg Intake: IV 2361 / 2361 2358 / 2358 Fat Emulsion 20% 250 ml @ 50 250 / 250 250 / 250 mls/hr IV 1600 [facility] Rx#: [id number] Fluconazole Pb 200 mg In 100 ml 100 / 100 100 / 100 @ 100 mls/hr IV Q24H [facility] Rx#: [id number] Multi-Vit Infusion 10 ml Multi 2010 -Trace Elements 1 ml In TPN - Standard Formula 2,000 ml @ 80 mls/hr IV .Q24H [facility] Rx#: [id number] Oral 900 / 900 600 / 600 600 / 600 Output: Urine 850 / 850 50 / 50 50 / 50 Wound Drainage 325 / 325 Medial Abdomen 0 / 0 Right Lateral Abdomen 325 / 325 Other: Urine Appearance Clear Clear Clear Urine Color Yellow Yellow Yellow Urine Odor Normal Normal Normal Stool Color Brown Stool Consistency Soft Size of Bowel Movement Small Drain Type Medial Abdomen PTC Right Lateral Abdomen Biliary # Voids 1 1 1 # Bowel Movements 1 - Consult Information TPN: Day 5 Sodium level is slightly low. Sodium Acetate 40 MEQ added to standard formula TPN. Current TPN formula as follows: amino acids 10% 1000 ml (5% total concentration) Dextrose 40% 1000 ml (20% total concentration) Sodium 110 mEq Potassium 60 mEq Magnesium 10 mEq Calcium 9 mEq Acetate 200 mEq Chloride 78 mEq Phosphate 30 mmol MVI 10 ml trace 1 ml Thank you, [place], [facility]
[2018-01-31] MEDS: FLUCONAZOLE PB 200 MG/100 ML BAG IV SCH (17:32)
[2018-01-31] MEDS: FAT EMULSION 20% 250 ML IV SCH (17:44)
[2018-01-31] MEDS: SODIUM ACETATE IV SCH (20:45)
[2018-01-31] MEDS: MULTI VIT INFUSION IV SCH (20:45)
[2018-01-31] MEDS: MULTI TRACE ELEMENTS IV SCH (20:45)
[2018-01-31] MEDS: [UNRECOGNIZED DRUG - OTHER] IV SCH (20:45)
[2018-01-31] MEDS: ACETAMINOPHEN 325 MG TABLET PO PRN (23:43)
[2018-02-01] MEDS: HEPARIN SUB-Q 5,000units/0.5ml INJECTION SQ SCH ×3 (00:06→16:35)
[2018-02-01] MEDS: LEVOTHYROXINE 50 MCG TABLET PO SCH (05:36)
[2018-02-01] MEDS: ATENOLOL 25 MG TABLET PO SCH (08:47)
[2018-02-01] MEDS: PANTOPRAZOLE 40 MG INJECTION IV SCH (08:47)
[2018-02-01] MEDS: SALINE FLUSH 10ml SYRINGE IV SCH ×3 (08:47→22:25)
[2018-02-01] MEDS: FLUCONAZOLE PB 200 MG/100 ML BAG IV SCH (16:35)
[2018-02-01] MEDS: SALINE FLUSH 10ml SYRINGE IV PRN ×2 (16:37→22:26)
[2018-02-01] MEDS: FAT EMULSION 20% 250 ML IV SCH (16:41)
[2018-02-01] MEDS: [UNRECOGNIZED DRUG - OTHER] IV SCH (22:14)
[2018-02-01] MEDS: MULTI VIT INFUSION IV SCH (22:14)
[2018-02-01] MEDS: MULTI TRACE ELEMENTS IV SCH (22:14)
[2018-02-01] MEDS: SODIUM ACETATE IV SCH (22:14)
[2018-02-02] MEDS: SALINE FLUSH 10ml SYRINGE IV SCH ×4 (02:29→23:34)
[2018-02-02] MEDS: HEPARIN SUB-Q 5,000units/0.5ml INJECTION SQ SCH ×3 (02:30→18:05)
[2018-02-02] MEDS: LEVOTHYROXINE 50 MCG TABLET PO SCH (06:38)
[2018-02-02] MEDS: PANTOPRAZOLE 40 MG INJECTION IV SCH (08:27)
[2018-02-02] MEDS: ATENOLOL 25 MG TABLET PO SCH (08:27)
[2018-02-02] MEDS: SALINE FLUSH 10ml SYRINGE IV PRN (08:30)
--- NOTE | 2018-02-02 11:00 | IRU Progress Note ---
- Subjective/Serverity of Illness Date: 02/02/18 Mr. Parkinson was reassessed in the gymnasium area of inpatient rehabilitation. He is very cooperative with therapy. He would like to eat more but is restricted on the basis of dysphagia as well as the bile leak. He is tolerating TPN well. Pharmacy has adjusted sodium content. He has improved with regard to his transfers which are now standby assist. He is able to ambulate with standby assistance 300 feet with a front-wheeled walker. He is working on balance at this time as well as curbs. He is able to perform car transfers and standby assist but with multiple verbal cues. His hemoglobin is up a bit. He denies any chest pain. He does report some dyspnea with activity. Exam Vital Signs: Temperature 98.0 F 02/02/18 08:00 Pulse Rate 64 02/02/18 08:00 Respiratory Rate 18 02/02/18 08:00 Blood Pressure 139/69 02/02/18 08:00 Pulse Oximetry 95 02/02/18 08:00 Height/Weight/BMI: Height 1.75 m Weight 75.4 kg Body Mass Index 24.5 - Constitutional Present: no acute distress, well nourished, well developed - Routine HEENT Exam Eye: Present: EOMI ENT: Present: mucous membranes moist, dentition normal - Routine Respiratory Exam Present: CTA bilaterally. Absent: wheezes - Routine Cardiovascular Exam Present: RRR, S1, S2. Absent: murmur - Routine Abdominal Exam Present: soft, normoactive bowel sounds, non distended. Absent: tenderness Comments: Abdomen is soft. Drains in place. No reports of output from the abdominal drains on the chart. I will check with nursing in this regard. - Routine Extremities Exam Present: no edema, normal capillary refill - Routine Skin Exam Present: dry, warm - Routine Neurological Exam Present: alert, oriented X3, CN II-XII intact - Routine Psychiatric Exam Present: normal affect, cooperative, good insight, good judgment Results IRU - Labs Labs: I reviewed chart dated including improved hemoglobin. Have reviewed other providers notes etc. IRU A/P (1) Myopathy Current visit: Yes Status: Acute His lower extremity weakness is much improved. Is able to transfer with standby assistance. He is able to ambulate 300 feet. He continues to improve. (2) Debility Current visit: Yes Status: Acute In addition, the patient's generalized weakness is improved. (3) Bile leak, postoperative Current visit: Yes Status: Acute (4) Dysphagia, oropharyngeal phase Current visit: Yes Status: Acute (5) Protein-calorie malnutrition, moderate Current visit: Yes Status: Acute He continues on TPN and seems to tolerate it well. DVT Prophylaxis: SCD's, SQ Heparin Resuscitation Status: Full Code - Course Hospital Course: Les Lynch MD: 01/30/18 11:38 Patient has easy fatigability but cooperates with therapy. Continues to require moderate assistance for transfers. He remains afebrile. Please see above discussion regarding his wounds. 01/31/18 12:37 Progressing with therapy. Cooperative but easy fatigability. Continues to require close monitoring regarding his nutritional status with TPN etc. 02/02/18 11:01 Patient is improving with therapy. He is stronger. Remains on limited intake in view of dysphagia. - Interventions to Obtain Goals PT Treatment Plan: Balance/Proprioception, Functional Activities, Gait Training , Patient/Family Education, Therapeutic Exercise OT Treatment Plan: ADL (Basic Care), Balance Training, IADL, Pt./Family Education, Ther. Exercise for ADL Goals Progress/Modifications: Patient's temperature ability and transfer ability is vastly improved. He is able to transfer with standby assistance. Uncertain how much is coming out of the drains and I will check with nursing in this regard. He denies any abdominal pain. He does have an appetite but we are restricting his intake at the present time. Team meeting today for further recommendations regarding working with him etc.
--- NOTE | 2018-02-02 14:26 | Pharmacy Consult-TPN/PPN ---
Pharmacy Consult-TPN/PPN - Laboratory Information Chemistry Turbidity < 20 (0-20) 02/02/18 04:27 Sodium 135 MEQ/L (136-146) L 02/02/18 04:27 Potassium 4.3 MEQ/L (3.6-5) 02/02/18 04:27 Chloride 103 MEQ/L (98-107) 02/02/18 04:27 Carbon Dioxide 24 MEQ/L (22-30) 02/02/18 04:27 Anion Gap 8 meq/L (5-15) 02/02/18 04:27 BUN 19.0 MG/DL (9-20) 02/02/18 04:27 Creatinine 0.7 mg/dL (0.8-1.5) L 02/02/18 04:27 Estimated Creat Clear 53 mL/min (>50) 02/02/18 04:27 GFR Calculation 107 mL/min (>60) 02/02/18 04:27 BUN/Creatinine Ratio 27 RATIO (6-26) H 02/02/18 04:27 Glucose 101 MG/DL (75-110) 02/02/18 04:27 Glucometer 135 mg/dL (65-110) 02/02/18 09:26 Calculated Osmolality 262 MOSM/KG (261-280) 02/02/18 04:27 Calcium 8.2 MG/DL (8.4-10.2) L 02/02/18 04:27 Phosphorus 3.3 MG/DL (2.5-4.5) 01/30/18 05:39 Magnesium 1.9 MG/DL (1.6-2.3) 01/30/18 05:39 Total Bilirubin 0.90 MG/DL (0.20-1.30) 01/30/18 05:39 Icterus Index < 2 (0-7) 02/02/18 04:27 AST 25 U/L (17-59) 01/30/18 05:39 ALT 16 U/L (1-50) 01/30/18 05:39 Alkaline Phosphatase 244 U/L (38-126) H 01/30/18 05:39 Total Protein 5.6 g/dL (6.3-8.2) L 01/30/18 05:39 Albumin 2.8 g/dL (3.5-5.0) L 01/30/18 05:39 Globulin 2.8 G/DL (2.4-3.6) 01/30/18 05:39 Albumin/Globulin Ratio 1.0 RATIO (1.1-2.2) L 01/30/18 05:39 Specimen Hemolysis < 15 (0-25) 02/02/18 04:27 Intake and Output 02/01/18 02/02/18 02/03/18 06:59 06:59 06:59 Intake Total 950 / 950 2735 / 2735 236 / 236 Output Total 450 / 450 200 / 200 Balance 500 / 500 2735 / 2735 36 / 36 Weight 77.5 kg 75.4 kg 77.1 kg Intake: IV 350 / 350 2381 / 2381 Fat Emulsion 20% 250 ml @ 50 250 / 250 250 / 250 mls/hr IV 1600 [facility] Rx#: [id number] Fluconazole Pb 200 mg In 100 ml 100 / 100 100 / 100 @ 100 mls/hr IV Q24H [facility] Rx#: [id number] Multi-Vit Infusion 10 ml Multi 1 / 2031 -Trace Elements 1 ml Sodium Acetate 40 meq In TPN - Standard Formula 2,000 ml @ 80 mls/hr IV .Q24H [facility] Rx#: [id number] Oral 600 / 600 354 / 354 236 / 236 Output: Urine 450 / 450 200 / 200 Other: Urine Appearance Clear Clear Clear Urine Color Yellow Dark Yellow Yellow Urine Odor Strong Normal Normal Stool Color Brown Brown Yellow Stool Consistency Liquid Soft Liquid Size of Bowel Movement Smear Moderate # Voids 1 1 3 # Incontinent Voids 0 # Bowel Movements 1 1 - Consult Information TPN: Continue standard formula TPN with additional Sodium Acetate 40 MEQ. Pharmacy will continue to monitor and adjust. Current TPN formula as follows: amino acids 10% 1000 ml (5% total concentration) Dextrose 40% 1000 ml (20% total concentration) Sodium 110 mEq Potassium 60 mEq Magnesium 10 mEq Calcium 9 mEq Acetate 200 mEq Chloride 78 mEq Phosphate 30 mmol MVI 10 ml trace 1 ml Thank you, La Butts [facility]
--- NOTE | 2018-02-02 14:49 | Progress Note ---
- Date 02/02/18 Subjective: Gorge is seen today while working with PT. He is ambulating independently with a FWW. He states that he feels that he is getting stronger. Denies having any abdominal pain or nausea. Remains on TPN for nutrition for gut rest. Afebrile, Vital signs stable. Objective Vital signs: Temperature 98.0 F 02/02/18 08:00 Pulse Rate 64 02/02/18 08:00 Respiratory Rate 18 02/02/18 08:00 Blood Pressure 139/69 02/02/18 08:00 Pulse Oximetry 95 02/02/18 08:00 Height/Weight/BMI: Height 1.75 m Weight 77.1 kg Body Mass Index 24.5 - Constitutional Present: no acute distress, well nourished, well developed - Routine HEENT Exam Eye: Present: EOMI ENT: Present: mucous membranes moist, dentition normal - Routine Respiratory Exam Present: CTA bilaterally. Absent: wheezes - Routine Cardiovascular Exam Present: RRR, S1, S2. Absent: murmur - Routine Abdominal Exam Present: soft, non distended, wound, drain (intact with dressing over). 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 Joey Vang. Dysphagia Atrial fibrillation Coronary artery disease Hyperlipidemia 02/02/18 Continue on TPN for nutrition. Hgb improved up to 9.3 today Sodium improved Continue to encourage strengthening with PT/OT Overall doing good 02/02/2018-7:30 PM-I examined the patient independently. I reviewed this chart, the patient history, and the PODIATRIC SURGEON's/PA's documented findings as above. We discussed and formulated the assessment and plan as above with the additions below.-Dr. Mortensen The patient was seen this evening in his room. He states he is feeling well. Denies any pain. He states he's eating a little soup but is not hungry. He denies shortness of breath except occasionally when he is walking a longer distance with therapy. On exam he is alert and in no acute distress. Chest is clear to auscultation. Cardiovascular reveals a regular rate and rhythm with a 3/6 systolic murmur. Abdomen is soft with positive bowel sounds. He has [address] Extremities are free of edema. Impression and plan Continue with therapy for debility and weakness Continue on TPN for nutrition. We'll need to determine what type of surgical follow-up and testing is needed prior to advancing diet. It was recommended that he have follow-up in 2 weeks time which would be approximately February 09. DVT Prophylaxis: SCD's, SQ Heparin GI Prophylaxis: Protonix Resuscitation Status: Full Code - Physician Narrative Narrative: Date: 01/27/18 Time: 1718 Hospital Course Summary Disclaimer: The visit summary below is not to be considered part of the above Progress Note. 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 Lynch for above. Will continue on TPN for nutrition- nectar thickened liquids only. He is to remain on TPN for 2 weeks until reevaluation and further imaging by surgeon. Will monitor electrolytes often. Dr. Velazquez's does not feel that continued daily flushing of drains needed. Consultation speech therapy given dysphasia. Cefazolin and for antimicrobial coverage - can be discontinued in 24 hours. Senna plus for bowel motivation. Monitor blood pressures, continue on atenolol. Continue on fluconazole IV for treatment of thrush. Subcutaneous heparin for DVT prophylaxis. Patient and are discussing code status. At this time they would like Full code. Appreciate consultation, the Hospitalist services will continue to follow patient and medically managed during his stay on the IRU unit. Will discuss further orders and plan of care with attending, Dr. Shaw. At time of discharge medical care will return to primary care provider, Dr Hatfield. Plan - 01/28/18 Patient reports therapy is going well and is tired from increased activity. No other complaints. Continues with TPN for nutrition as well as clear liquid diet only with nectar thickened liquids. He is to remain on TPN and clear liquids for 2 weeks until reevaluation and further imaging by surgeon, Dr. Vang. Electrolytes and renal function stable. Will continue to monitor closely. Blood sugar stable. Biliary drain has put out >500cc green/brown discharge since admission as well as saturating the dressing which was changed today. Abdominal drain with scant discharge. Continue to monitor discharge closely. No need to flush drains daily. Cefazolin treatment to be completed today. Continue fluconazole 200mg IV daily for treatment of thrush through 02/04/18. Leukocytosis (WBC 11.2) noted today. WBC on 01/27/18 was 13.8 per medical records. Will continue to monitor closely. Patient is afebrile. CXR on 01/27/18 revealed mild CHF/fluid overload. Weight is up ~3-4 kgs since initial evaluation on 01/14/18. Will give Lasix 20 mg po now and monitor daily weight closely. Nursing reported hypoxia with exertion with saturation in the 70's during activities. No history of oxygen use at home but did require oxygen while previously hospitalized. Oxygen as needed to maintain SAO2 >90%, weaning as able. Subcutaneous heparin for DVT prophylaxis. Recheck labs in AM to monitor blood counts, electrolytes and renal function. Plan - 01/30/18 Continues with TPN for nutrition as well as clear liquid diet only with nectar thickened liquids. He is to remain on TPN and clear liquids for 2 weeks until reevaluation and further imaging by surgeon, Dr. Vang. Continue fluconazole 200mg IV daily for treatment of thrush through 02/04/18. Leukocytosis improved. White count 10.2. Hemoglobin stable at 8.7 Need to follow electrolytes and glucose carefully while on TPN Oxygen as needed to maintain SAO2 >90%, weaning as able. Subcutaneous heparin for DVT prophylaxis. 02/02/18 Continue on TPN for nutrition. Hgb improved up to 9.3 today Sodium improved Continue to encourage strengthening with PT/OT Overall doing good
[2018-02-02] MEDS: FLUCONAZOLE PB 200 MG/100 ML BAG IV SCH (15:34)
--- NOTE | 2018-02-02 15:52 | IRU Team Meeting ---
IRU Team Meeting - Nursing Bladder Assistive Devices Utilized:: Absorbent Pad Bladder Management Level of Assist: Modified Independent Bladder Frequency of Accidents: No accidents; uses device Bowel Assistive Devices Utilized:: Absorbent Pad Bowel Management Level of Assist: Modified Independent Bowel Frequency of Accidents: No accidents Vital Signs: Vital Signs - 24 hr 02/01/18 15:59 02/01/18 19:55 02/02/18 08:00 Temperature 97.6 F 98.1 F 98.0 F Pulse Rate 64 68 64 Respiratory Rate 16 18 Blood Pressure 144/71 H 168/80 H 139/69 Pulse Oximetry 95 97 95 02/02/18 15:27 Temperature 98.6 F Pulse Rate 62 Respiratory Rate 16 Blood Pressure 141/69 H Pulse Oximetry 95 Current Medications: Acetaminophen (Tylenol) 650 mg PO Q4HR PRN PRN Reason: Pain Last Admin: 01/31/18 23:43 Dose: 650 mg Acetaminophen (Tylenol) 650 mg [place] Q4HR PRN PRN Reason: Pain Atenolol (Tenormin) 12.5 mg PO DAILY [facility] Last Admin: 02/02/18 08:27 Dose: 12.5 mg Dextrose (D50%W) 50 ml IVP PRN PRN PRN Reason: Hypoglycemia Glucose (Glutose 15) 37.5 gm PO PRN PRN PRN Reason: Hypoglycemia Heparin Sodium (Porcine) (Heparin Sq) 5,000 units SQ Q8HR [facility] Last Admin: 02/02/18 08:28 Dose: 5,000 units Fluconazole (Diflucan 200 Mg Premix) 200 mg in 100 mls @ 100 mls/hr IV Q24H [facility] Stop: 02/04/18 06:00 Last Admin: 02/02/18 15:34 Dose: 100 mls/hr Fat Emulsion Intravenous (Intralipid 20%) 250 mls @ 50 mls/hr IV 1600 [facility] Last Infusion: 02/01/18 21:43 Dose: Infused Multivitamins/Minerals 10 ml/Chromium/Copper/Manganese/Zinc 1 ml/ Sodium Acetate 40 meq/Amino Acids/Electrolytes/Dextrose 2,031 mls @ 80 mls/hr IV .Q24H [facility]; Protocol Last Admin: 02/01/18 22:14 Dose: 80 mls/hr Insulin Aspart (Novolog) 1 - 5 unit SQ SS PRN; Protocol PRN Reason: Hyperglycemia Last Admin: 01/28/18 10:47 Dose: 1 unit Levothyroxine Sodium (Synthroid) 50 mcg PO ACB [facility] Last Admin: 02/02/18 06:38 Dose: 50 mcg Ondansetron HCl (Zofran Po) 4 mg PO Q4HR PRN PRN Reason: Nausea Pantoprazole Sodium (Protonix Iv) 40 mg IV DAILY [facility] Last Admin: 02/02/18 08:27 Dose: 40 mg Senna/Docusate Sodium (Senna Plus Tablet) 1 tab PO BID PRN PRN Reason: Constipation Sodium Chloride (Iv Flush) 20 ml IV Q8H [facility] Last Admin: 02/02/18 15:34 Dose: 20 ml Sodium Chloride (Iv Flush) 20 ml IV PRN PRN PRN Reason: Flushing Last Admin: 02/02/18 08:30 Dose: 20 ml Current Medical Issues: Critical illness myopathy, malnutrition, status post open cholecystectomy with bile duct leak Comments: I certify that I personally led the interdisciplinary team meeting and agree with comments, barriers and goals indicated. Team meeting was held in the patient's room with the patient and the following family members present: Patient's daughter via speakerphone Mr. Parkinson is tolerating clear liquids with nectar thickened consistency adequately. He would like to eat more. He denies abdominal pain. He is cooperative with therapy. - Dietary Patient is followed by dietitian. He remains on TPN with lipids. He is on clear liquids with nectar thickened liquids orally. - Physical Therapy Bed, Chair, Wheelchair Transfer Assist: Stand By Assist/Supervision Ambulation Ability: Stand By Assist/Supervision Ambulation Distance: 341 Wheelchair Propulsion Ability: Maximal Assistance, 1 Person Assist Wheelchair Propulsion Distance: 67 Stair Climbing Ability: Maximal Assistance, 1 Person Assist Number of Steps Climbed: 5 Car Transfer Ability: Stand By Assist/Supervision Comments: Patient is ambulating with a front-wheeled walker over 60 feet. He has improved stability and in improved gait pattern. He is tolerating activity better. However continues to be limited by poor endurance and safety awareness. - Occupational Therapy Eating Ability: Total Assistance Grooming Ability: Modified Independent Bathing Ability: Contact Guard Assistance Upper Body Dressing Ability: Modified Independent Lower Body Dressing Ability: Contact Guard Assistance Tub Transfer Assist: Maximal Assistance Toileting Assist: Modified Independent Toilet Transfer Assist: Stand By Assist/Supervision Comments: Patient has been making good gains for occupational therapy. He does require rest breaks during ADL tasks. - Goals Physical Therapy Goals: 02/02/18 Goals: 1.) Modified independence with transfers and ambulation. 2.) Demonstrate good safety awareness 100%. 3.) Family Training close to discharge. 4.) Increase endurance requiring only 2 rest breaks during 60 minute therapy session. Occupational Therapy Goals: 02/02/18: 1) Upper Body Dressing with Modified [place] (at supervision). 2) Lower Body Dressing with Modified [place] (at minimal assistance). 3) Toileting transfer at Modified [place]. 4) Perform a simmple meal prep with supervision in standing with 2 rest breaks. - Barriers to Discharge Barriers to Attaining Goals: Weakness (decreased strength is addressed by increased resistive exercises.), Endurance (decreased activity tolerance for ADLs noted. Fewer rest breaks and increased activity time are offered.) - Care Plan Anticipated Length of Stay (days): 6 Anticipated DC Destination: Home, Self Care, Home Health Service, Other ( assisted living) I have led this team conference and agree with the plan. Interventions/Goals: Mr. Chawla is improving from a functional standpoint. He is getting stronger. He is able to care for himself better with improved endurance. Current plan is to continue TPN and PT and OT through next Tuesday at which time TPN will be discontinued in anticipation of evaluation in [place]. Depending on the T-tube cholangiogram and Dr. Velazquez's assessment, patient may be able to return to his apartment in assisted living versus return for more skilled care for TPN.
[2018-02-02] MEDS: FAT EMULSION 20% 250 ML IV SCH (16:49)
[2018-02-02] MEDS: ACETAMINOPHEN 325 MG TABLET PO PRN (21:07)
[2018-02-02] MEDS: [UNRECOGNIZED DRUG - OTHER] IV SCH (23:33)
[2018-02-02] MEDS: MULTI VIT INFUSION IV SCH (23:33)
[2018-02-02] MEDS: MULTI TRACE ELEMENTS IV SCH (23:33)
[2018-02-02] MEDS: SODIUM ACETATE IV SCH (23:33)
[2018-02-03] MEDS: HEPARIN SUB-Q 5,000units/0.5ml INJECTION SQ SCH ×3 (02:24→20:33)
[2018-02-03] MEDS: LEVOTHYROXINE 50 MCG TABLET PO SCH (06:12)
[2018-02-03] MEDS: SALINE FLUSH 10ml SYRINGE IV SCH ×2 (08:45→20:33)
[2018-02-03] MEDS: PANTOPRAZOLE 40 MG INJECTION IV SCH (08:45)
[2018-02-03] MEDS: SALINE FLUSH 10ml SYRINGE IV PRN (08:46)
[2018-02-03] MEDS: ATENOLOL 25 MG TABLET PO SCH (08:46)
--- NOTE | 2018-02-03 10:56 | Pharmacy Consult-TPN/PPN ---
Pharmacy Consult-TPN/PPN - Laboratory Information Chemistry Turbidity < 20 (0-20) 02/03/18 04:52 Sodium 136 MEQ/L (136-146) 02/03/18 04:52 Potassium 4.1 MEQ/L (3.6-5) 02/03/18 04:52 Chloride 104 MEQ/L (98-107) 02/03/18 04:52 Carbon Dioxide 23 MEQ/L (22-30) 02/03/18 04:52 Anion Gap 9 meq/L (5-15) 02/03/18 04:52 BUN 19.0 MG/DL (9-20) 02/03/18 04:52 Creatinine 0.7 mg/dL (0.8-1.5) L 02/03/18 04:52 Estimated Creat Clear 53 mL/min (>50) 02/03/18 04:52 GFR Calculation 107 mL/min (>60) 02/03/18 04:52 BUN/Creatinine Ratio 27 RATIO (6-26) H 02/03/18 04:52 Glucose 96 MG/DL (75-110) 02/03/18 04:52 Glucometer 136 mg/dL (65-110) 02/03/18 02:31 Calculated Osmolality 264 MOSM/KG (261-280) 02/03/18 04:52 Calcium 7.9 MG/DL (8.4-10.2) L 02/03/18 04:52 Phosphorus 3.3 MG/DL (2.5-4.5) 01/30/18 05:39 Magnesium 1.9 MG/DL (1.6-2.3) 02/03/18 04:52 Total Bilirubin 0.90 MG/DL (0.20-1.30) 01/30/18 05:39 Icterus Index < 2 (0-7) 02/03/18 04:52 AST 25 U/L (17-59) 01/30/18 05:39 ALT 16 U/L (1-50) 01/30/18 05:39 Alkaline Phosphatase 244 U/L (38-126) H 01/30/18 05:39 Total Protein 5.6 g/dL (6.3-8.2) L 01/30/18 05:39 Albumin 2.8 g/dL (3.5-5.0) L 01/30/18 05:39 Globulin 2.8 G/DL (2.4-3.6) 01/30/18 05:39 Albumin/Globulin Ratio 1.0 RATIO (1.1-2.2) L 01/30/18 05:39 Specimen Hemolysis < 15 (0-25) 02/03/18 04:52 - Consult Information TPN Consult: Day 8 Will continue the TPN as currently ordered. Thanks, Lj Norton, [facility]
--- NOTE | 2018-02-03 13:55 | IRU Progress Note ---
- Subjective/Serverity of Illness Date: 02/03/18 Mr. Parkinson was interviewed and examined in his room with therapy present. He is doing very well. Today he took a shower for the first time and did very well. He is somewhat winded after that experience. He continues to deny any abdominal pain. He has not been running any fever. He remains on clear liquids which are nectar thickened. For occupational therapy, the patient is independent with upper and lower body dressing, requires supervision for bathing and is modified independent for transfers. For physical therapy he is standby assist for transfers and ambulation. He is able to walk 256 feet with a front-wheeled walker. He is progressing nicely in this regard. Prolonged discussions have been undertaken with case management, patient and patient's family with regard to placement issues. Please see plan at the end of this note in this regard. Exam Vital Signs: Temperature 98.6 F 02/03/18 08:20 Pulse Rate 68 02/03/18 08:20 Respiratory Rate 16 02/03/18 08:20 Blood Pressure 135/68 02/03/18 08:20 Pulse Oximetry 98 02/03/18 08:20 Height/Weight/BMI: Height 1.75 m Weight 73.5 kg Body Mass Index 24.5 - Constitutional Present: mild distress (dyspnea), well nourished, well developed, thin - Routine HEENT Exam Eye: Present: EOMI ENT: Present: mucous membranes moist, oropharynx clear - Routine Respiratory Exam Present: CTA bilaterally. Absent: wheezes - Routine Cardiovascular Exam Present: RRR, S1, S2. Absent: murmur - Routine Abdominal Exam Present: soft, normoactive bowel sounds, non distended. Absent: tenderness Comments: Abdomen remained soft and nontender. I did not remove the dressing today as it had recently been dressed. No report of any output from either of the drains at the present time although there appears to be some bile drainage noted. - Routine Extremities Exam Present: no edema, normal capillary refill - Routine Skin Exam Present: dry, warm - Routine Neurological Exam Present: alert, oriented X3, CN II-XII intact - Routine Psychiatric Exam Present: normal affect, cooperative, good insight, good judgment Results IRU - Labs Labs: I have reviewed chart data and other providers notes. IRU A/P (1) Myopathy Current visit: Yes Status: Acute Patient's transfers are significantly improved. He is cooperative with therapy. 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 (2) Debility Current visit: Yes Status: Acute (3) Bile leak, postoperative Current visit: Yes Status: Acute Minimal drainage from MAGGIE drain. (4) Dysphagia, oropharyngeal phase Current visit: Yes Status: Acute (5) Protein-calorie malnutrition, moderate Current visit: Yes Status: Acute Patient continues on TPN at present. DVT Prophylaxis: SCD's, SQ Heparin Resuscitation Status: Full Code - Course Hospital Course: Les Lynch MD: 01/30/18 11:38 Patient has easy fatigability but cooperates with therapy. Continues to require moderate assistance for transfers. He remains afebrile. Please see above discussion regarding his wounds. 01/31/18 12:37 Progressing with therapy. Cooperative but easy fatigability. Continues to require close monitoring regarding his nutritional status with TPN etc. 02/02/18 11:01 Patient is improving with therapy. He is stronger. Remains on limited intake in view of dysphagia. 02/03/18 13:56 Patient continues to improve with regard to functional activities. He is able to ambulate well. Drainage appears to be minimal from the tubes. Remains on modified diet in view of dysphagia and bile leak. - Interventions to Obtain Goals PT Treatment Plan: Balance/Proprioception, Functional Activities, Gait Training , Patient/Family Education, Therapeutic Exercise OT Treatment Plan: ADL (Basic Care), Balance Training, IADL, Pt./Family Education, Ther. Exercise for ADL Goals Progress/Modifications: After multiple discussions, the following plan is anticipated: 1. Patient will do therapy and be dismissed on 02/07/2018, around 5 or 6 PM to be patent by his daughter. 2. He will be transported to [facility] that day 3. His TPN will be discontinued at that time 4. He will go to [place] at 8 AM on 02/08/2018 for the T-tube cholangiogram. He can have clear liquids which are nectar thickened until midnight the preceding night. 5. He will see Dr. Radha Velazquez at 1 PM on 02/08/2018 for a decision about whether to continue TPN or not. 6. We will contact [facility] as well as [employer] (or another company with whom they may have a contract for TPN) and send them the current "formula" in the event that he does continue TPN after seeing Dr. Velazquez 7. I will contact Dr. Velazquez Tuesday to see what her decision is. At that point I will contact [facility] as well as Dr. Justus Hatfield and [facility] to clarify things.
[2018-02-03] MEDS: FLUCONAZOLE PB 200 MG/100 ML BAG IV SCH (16:00)
[2018-02-03] MEDS: FAT EMULSION 20% 250 ML IV SCH (18:02)
[2018-02-03] MEDS: MULTI VIT INFUSION IV SCH (23:38)
[2018-02-03] MEDS: SODIUM ACETATE IV SCH (23:38)
[2018-02-03] MEDS: MULTI TRACE ELEMENTS IV SCH (23:38)
[2018-02-03] MEDS: [UNRECOGNIZED DRUG - OTHER] IV SCH (23:38)
[2018-02-04] MEDS: SALINE FLUSH 10ml SYRINGE IV SCH ×4 (00:17→23:30)
[2018-02-04] MEDS: HEPARIN SUB-Q 5,000units/0.5ml INJECTION SQ SCH ×3 (03:23→17:36)
[2018-02-04] MEDS: LEVOTHYROXINE 50 MCG TABLET PO SCH (05:41)
--- NOTE | 2018-02-04 07:41 | Pharmacy Consult-TPN/PPN ---
Pharmacy Consult-TPN/PPN - Laboratory Information Chemistry Turbidity < 20 (0-20) 02/04/18 03:56 Sodium 135 MEQ/L (136-146) L 02/04/18 03:56 Potassium 4.2 MEQ/L (3.6-5) 02/04/18 03:56 Chloride 103 MEQ/L (98-107) 02/04/18 03:56 Carbon Dioxide 25 MEQ/L (22-30) 02/04/18 03:56 Anion Gap 7 meq/L (5-15) 02/04/18 03:56 BUN 19.0 MG/DL (9-20) 02/04/18 03:56 Creatinine 0.7 mg/dL (0.8-1.5) L 02/04/18 03:56 Estimated Creat Clear 53 mL/min (>50) 02/04/18 03:56 GFR Calculation 107 mL/min (>60) 02/04/18 03:56 BUN/Creatinine Ratio 27 RATIO (6-26) H 02/04/18 03:56 Glucose 94 MG/DL (75-110) 02/04/18 03:56 Glucometer 119 mg/dL (65-110) 02/04/18 03:25 Calculated Osmolality 262 MOSM/KG (261-280) 02/04/18 03:56 Calcium 7.9 MG/DL (8.4-10.2) L 02/04/18 03:56 Phosphorus 3.3 MG/DL (2.5-4.5) 01/30/18 05:39 Magnesium 1.9 MG/DL (1.6-2.3) 02/03/18 04:52 Total Bilirubin 0.90 MG/DL (0.20-1.30) 01/30/18 05:39 Icterus Index < 2 (0-7) 02/04/18 03:56 AST 25 U/L (17-59) 01/30/18 05:39 ALT 16 U/L (1-50) 01/30/18 05:39 Alkaline Phosphatase 244 U/L (38-126) H 01/30/18 05:39 Total Protein 5.6 g/dL (6.3-8.2) L 01/30/18 05:39 Albumin 2.8 g/dL (3.5-5.0) L 01/30/18 05:39 Globulin 2.8 G/DL (2.4-3.6) 01/30/18 05:39 Albumin/Globulin Ratio 1.0 RATIO (1.1-2.2) L 01/30/18 05:39 Specimen Hemolysis < 15 (0-25) 02/04/18 03:56 Intake and Output 02/03/18 02/04/18 02/05/18 06:59 06:59 06:59 Intake Total 3031.333 / 3031.333 2676.667 / 2676.667 Output Total 200 / 200 Balance 2831.333 / 2831.333 2676.667 / 2676.667 Weight 73.5 kg 74 kg Intake: IV 2375.333 / 2375.333 2276.667 / 2276.667 Fat Emulsion 20% 250 ml @ 50 250 / 250 250 / 250 mls/hr IV 1600 [facility] Rx#: [id number] Fluconazole Pb 200 mg In 100 ml 100 / 100 100 / 100 @ 100 mls/hr IV Q24H [facility] Rx#: [id number] Multi-Vit Infusion 10 ml Multi 2024.333 / 5.333 1926.667 / 1926.667 -Trace Elements 1 ml Sodium Acetate 40 meq In TPN - Standard Formula 2,000 ml @ 80 mls/hr IV .Q24H [facility] Rx#: [id number] Oral 656 / 656 400 / 400 Output: Urine 200 / 200 Other: Urine Appearance Clear Clear Urine Color Yellow Yellow Dark Jovita Urine Odor Normal Normal Stool Color Brown Stool Consistency Soft Size of Bowel Movement Small # Voids 3 1 TPN THERAPY: DAY 9 Electrolytes today are all WNL's and very stable. Sugars stable, Osmolality stable. Will not order labs for tomorrow, but will repeat for Tuesday instead. Continue present TPN formula, infusing at 80ml/hr via PICC. Also receiving Fat Emulsion 20% 250ml, one bag daily to prevent EFAD and increase calories. All this gives approximately 1750 kcal per day, 2170 mls fluid per day. I/O, as recorded is stable. Wt is stable. Thank you
[2018-02-04] MEDS: ATENOLOL 25 MG TABLET PO SCH (08:56)
[2018-02-04] MEDS: PANTOPRAZOLE 40 MG INJECTION IV SCH (08:57)
--- NOTE | 2018-02-04 14:19 | Progress Note ---
- Date 02/04/18 Subjective: Gorge reports that he's feeling well, and hopes to go on a walk this afternoon. He denies any pain at the moment. No nausea/vomiting. TPN infusing; and he wishes he could eat again. He denies feeling weak or dizzy with ambulation but if he goes too far he sometimes gets a little SOA. Objective Vital signs: Temperature 98.6 F 02/04/18 08:00 Pulse Rate 71 02/04/18 08:00 Respiratory Rate 20 02/04/18 08:00 Blood Pressure 149/93 H 02/04/18 08:00 Pulse Oximetry 93 02/04/18 08:00 Height/Weight/BMI: Height 1.75 m Weight 74.3 kg Body Mass Index 24.5 - Constitutional Present: no acute distress, well nourished, well developed - Routine HEENT Exam Head: Present: normocephalic Eye: Present: PERRL. Absent: conjunctival icterus, scleral injection - Routine Respiratory Exam Present: CTA bilaterally - Routine Cardiovascular Exam Present: RRR, S1, S2, murmur - Routine Abdominal Exam Present: soft Comments: stapled incisions are healing well - no erythema or drainage 2 drains have surrounding localized erythema - stable per RN - Routine Extremities Exam Present: no edema - Routine Musculoskeletal Exam Musculoskeletal: Present: moving extremities well - Routine Skin Exam Present: dry, warm - Routine Neurological Exam Present: alert, oriented X3, tremors (right arm) - Routine Psychiatric Exam Present: normal affect, normal thought process, cooperative Results - Labs CBC & Chem 7: 02/02/18 04:27 02/04/18 03:56 Assessment and Plan Assessment and Plan: Impression Debility 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 Joey Vang. Hyponatremia Dysphagia Atrial fibrillation Coronary artery disease Hyperlipidemia 02/04/18 Mild hyponatremia otherwise stable chemistry panel. Continue TPN. Repeat labs on 02/06. Monitor drain sites closely. Pt reports possible dc on Tuesday for upcoming appt next week. DVT Prophylaxis: SCD's, SQ Heparin GI Prophylaxis: Protonix Resuscitation Status: Full Code - Physician Narrative Physician: Digna Hoang MD Narrative: Date: 02/04/18 Time:1659 patient sleeping when I went into see him this afternoon. I did not awaken him. I have reviewed his vital signs, medications and labs. Patient was discussed with Juana Cabrera APRN. I have reviewed her note documentation. I agree with assessment and plan as stated. Hospital Course Summary Disclaimer: The visit summary below is not to be considered part of the above Progress Note. 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 Lynch for above. Will continue on TPN for nutrition- nectar thickened liquids only. He is to remain on TPN for 2 weeks until reevaluation and further imaging by surgeon. Will monitor electrolytes often. Dr. Velazquez's does not feel that continued daily flushing of drains needed. Consultation speech therapy given dysphasia. Cefazolin and for antimicrobial coverage - can be discontinued in 24 hours. Senna plus for bowel motivation. Monitor blood pressures, continue on atenolol. Continue on fluconazole IV for treatment of thrush. Subcutaneous heparin for DVT prophylaxis. Patient and are discussing code status. At this time they would like Full code. Appreciate consultation, the Hospitalist services will continue to follow patient and medically managed during his stay on the IRU unit. Will discuss further orders and plan of care with attending, Dr. Shaw. At time of discharge medical care will return to primary care provider, Dr Hatfield. Plan - 01/28/18 Patient reports therapy is going well and is tired from increased activity. No other complaints. Continues with TPN for nutrition as well as clear liquid diet only with nectar thickened liquids. He is to remain on TPN and clear liquids for 2 weeks until reevaluation and further imaging by surgeon, Dr. Vang. Electrolytes and renal function stable. Will continue to monitor closely. Blood sugar stable. Biliary drain has put out >500cc green/brown discharge since admission as well as saturating the dressing which was changed today. Abdominal drain with scant discharge. Continue to monitor discharge closely. No need to flush drains daily. Cefazolin treatment to be completed today. Continue fluconazole 200mg IV daily for treatment of thrush through 02/04/18. Leukocytosis (WBC 11.2) noted today. WBC on 01/27/18 was 13.8 per medical records. Will continue to monitor closely. Patient is afebrile. CXR on 01/27/18 revealed mild CHF/fluid overload. Weight is up ~3-4 kgs since initial evaluation on 01/14/18. Will give Lasix 20 mg po now and monitor daily weight closely. Nursing reported hypoxia with exertion with saturation in the 70's during activities. No history of oxygen use at home but did require oxygen while previously hospitalized. Oxygen as needed to maintain SAO2 >90%, weaning as able. Subcutaneous heparin for DVT prophylaxis. Recheck labs in AM to monitor blood counts, electrolytes and renal function. Plan - 01/30/18 Continues with TPN for nutrition as well as clear liquid diet only with nectar thickened liquids. He is to remain on TPN and clear liquids for 2 weeks until reevaluation and further imaging by surgeon, Dr. Vang. Continue fluconazole 200mg IV daily for treatment of thrush through 02/04/18. Leukocytosis improved. White count 10.2. Hemoglobin stable at 8.7 Need to follow electrolytes and glucose carefully while on TPN Oxygen as needed to maintain SAO2 >90%, weaning as able. Subcutaneous heparin for DVT prophylaxis. 02/02/18 Continue on TPN for nutrition. Hgb improved up to 9.3 today Sodium improved Continue to encourage strengthening with PT/OT Overall doing good
[2018-02-04] MEDS: FAT EMULSION 20% 250 ML IV SCH (16:12)
[2018-02-04] MEDS: SALINE FLUSH 10ml SYRINGE IV PRN (17:37)
[2018-02-04] MEDS: [UNRECOGNIZED DRUG - OTHER] IV SCH (23:29)
[2018-02-04] MEDS: MULTI TRACE ELEMENTS IV SCH (23:29)
[2018-02-04] MEDS: MULTI VIT INFUSION IV SCH (23:29)
[2018-02-04] MEDS: SODIUM ACETATE IV SCH (23:29)
[2018-02-05] MEDS: HEPARIN SUB-Q 5,000units/0.5ml INJECTION SQ SCH ×3 (01:05→16:31)
[2018-02-05] MEDS: LEVOTHYROXINE 50 MCG TABLET PO SCH (06:28)
[2018-02-05] MEDS: SALINE FLUSH 10ml SYRINGE IV SCH ×2 (08:30→16:30)
[2018-02-05] MEDS: ATENOLOL 25 MG TABLET PO SCH (08:30)
[2018-02-05] MEDS: PANTOPRAZOLE 40 MG INJECTION IV SCH (08:31)
--- NOTE | 2018-02-05 08:31 | Pharmacy Consult-TPN/PPN ---
Pharmacy Consult-TPN/PPN - Laboratory Information Chemistry Turbidity < 20 (0-20) 02/04/18 03:56 Sodium 135 MEQ/L (136-146) L 02/04/18 03:56 Potassium 4.2 MEQ/L (3.6-5) 02/04/18 03:56 Chloride 103 MEQ/L (98-107) 02/04/18 03:56 Carbon Dioxide 25 MEQ/L (22-30) 02/04/18 03:56 Anion Gap 7 meq/L (5-15) 02/04/18 03:56 BUN 19.0 MG/DL (9-20) 02/04/18 03:56 Creatinine 0.7 mg/dL (0.8-1.5) L 02/04/18 03:56 Estimated Creat Clear 53 mL/min (>50) 02/04/18 03:56 GFR Calculation 107 mL/min (>60) 02/04/18 03:56 BUN/Creatinine Ratio 27 RATIO (6-26) H 02/04/18 03:56 Glucose 94 MG/DL (75-110) 02/04/18 03:56 Glucometer 135 mg/dL (65-110) 02/05/18 04:32 Calculated Osmolality 262 MOSM/KG (261-280) 02/04/18 03:56 Calcium 7.9 MG/DL (8.4-10.2) L 02/04/18 03:56 Phosphorus 3.3 MG/DL (2.5-4.5) 01/30/18 05:39 Magnesium 1.9 MG/DL (1.6-2.3) 02/03/18 04:52 Total Bilirubin 0.90 MG/DL (0.20-1.30) 01/30/18 05:39 Icterus Index < 2 (0-7) 02/04/18 03:56 AST 25 U/L (17-59) 01/30/18 05:39 ALT 16 U/L (1-50) 01/30/18 05:39 Alkaline Phosphatase 244 U/L (38-126) H 01/30/18 05:39 Total Protein 5.6 g/dL (6.3-8.2) L 01/30/18 05:39 Albumin 2.8 g/dL (3.5-5.0) L 01/30/18 05:39 Globulin 2.8 G/DL (2.4-3.6) 01/30/18 05:39 Albumin/Globulin Ratio 1.0 RATIO (1.1-2.2) L 01/30/18 05:39 Specimen Hemolysis < 15 (0-25) 02/04/18 03:56 Intake and Output 02/04/18 02/05/18 02/06/18 06:59 06:59 06:59 Intake Total 2676.667 / 2676.667 2518 / 2518 Balance 2676.667 / 2676.667 2518 / 2518 Weight 74 kg 74.3 kg Intake: IV 2276.667 / 2276.667 2158 / 2158 Fat Emulsion 20% 250 ml @ 50 250 / 250 250 / 250 mls/hr IV 1600 [facility] Rx#: [id number] Fluconazole Pb 200 mg In 100 ml 100 / 100 @ 100 mls/hr IV Q24H [facility] Rx#: [id number] Multi-Vit Infusion 10 ml Multi 1926.667 / 3107.324 7888 / 1908 -Trace Elements 1 ml Sodium Acetate 40 meq In TPN - Standard Formula 2,000 ml @ 80 mls/hr IV .Q24H [facility] Rx#: [id number] Oral 400 / 400 360 / 360 Other: Urine Appearance Clear Clear Urine Color Yellow Yellow Urine Odor Normal Normal # Voids 1 4 TPN THERAPY: DAY 10 No new labs today. Electrolytes have been very stable on current formula. Sugars are stable. Ordered labs for tomorrow (Tuesday 02/06). Continue present TPN formula, infusing at 80ml/hr via PICC. Also receiving Fat Emulsion 20% 250ml, one bag daily to prevent EFAD and increase calories. All this gives approximately 1750 kcal per day, 2170 mls fluid per day. I/O, as recorded is stable. Wt is stable. Thank you.
[2018-02-05] MEDS: FAT EMULSION 20% 250 ML IV SCH (16:26)
[2018-02-06] MEDS: HEPARIN SUB-Q 5,000units/0.5ml INJECTION SQ SCH ×3 (00:17→16:16)
[2018-02-06] MEDS: [UNRECOGNIZED DRUG - OTHER] IV SCH (00:20)
[2018-02-06] MEDS: MULTI VIT INFUSION IV SCH (00:20)
[2018-02-06] MEDS: MULTI TRACE ELEMENTS IV SCH (00:20)
[2018-02-06] MEDS: SODIUM ACETATE IV SCH (00:20)
[2018-02-06] MEDS: SALINE FLUSH 10ml SYRINGE IV SCH ×3 (00:21→16:56)
[2018-02-06] MEDS: LEVOTHYROXINE 50 MCG TABLET PO SCH (06:27)
[2018-02-06] MEDS: ATENOLOL 25 MG TABLET PO SCH (08:14)
[2018-02-06] MEDS: PANTOPRAZOLE 40 MG INJECTION IV SCH (08:15)
--- NOTE | 2018-02-06 10:28 | IRU Progress Note ---
- Subjective/Serverity of Illness Date: 02/06/18 Mr. Parkinson was interviewed and examined in his room on inpatient rehabilitation. He reports easy fatigability but otherwise is tolerating therapy quite well. He denies any chest pain. He does have some dyspnea with activity which he had before. Denies any cough nor sputum. He reports that he would like to eat more but at present his diet is restricted. His vital signs remained stable. His blood pressure is overall quite good. His hemoglobin is 8.9. Alkaline phosphatase is a bit up. Inspection of his wounds indicates just a bit of redness around both tube sites (anterior abdomen on the right and right lateral flank) but this has not changed since admission. He denies any abdominal pain. From a therapy standpoint, the patient is able to now transfer with supervision only and to be modified independent if he did not have the TPN to deal with. He is able to ambulate with supervision to modified independent level and transfers and out of a car with supervision. He is using a front-wheeled walker. From an occupational therapy standpoint he is standby assist to independent with most activities. Exam Vital Signs: Temperature 97.6 F 02/06/18 08:00 Pulse Rate 109 H 02/06/18 08:00 Respiratory Rate 18 02/06/18 08:00 Blood Pressure 135/65 02/06/18 08:00 Pulse Oximetry 91 02/06/18 08:00 Height/Weight/BMI: Height 1.75 m Weight 72.1 kg Body Mass Index 24.5 - Constitutional Present: no acute distress, well nourished, well developed, cooperative - Routine HEENT Exam Eye: Present: EOMI ENT: Present: mucous membranes moist, dentition normal - Routine Respiratory Exam Present: CTA bilaterally. Absent: wheezes - Routine Cardiovascular Exam Present: RRR, S1, S2. Absent: murmur - Routine Abdominal Exam Present: soft, normoactive bowel sounds, non distended. Absent: tenderness Comments: Tube sites are inspected. There is some slight redness around both of them but this has not changed since admission. The abdomen remained soft. He is nontender to palpation of the abdomen. - Routine Extremities Exam Present: no edema, normal capillary refill - Routine Skin Exam Present: dry, warm - Routine Neurological Exam Present: alert, oriented X3, CN II-XII intact - Routine Psychiatric Exam Present: normal affect Results IRU - Labs Labs: Have reviewed chart daytime, labs etc. 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 He is able to transfer with supervision level only. He is doing well from a therapy standpoint. (2) Debility Current visit: Yes Status: Acute He continues to have easy fatigability likely related to underlying cardiac issues as well as his advanced age. He is very cooperative and makes progress. (3) Bile leak, postoperative Current visit: Yes Status: Acute He remains without pain in the abdomen is soft. Plans for T-tube cholangiogram or equivalent on Tuesday in [place]. (4) Dysphagia, oropharyngeal phase Current visit: Yes Status: Acute (5) Protein-calorie malnutrition, moderate Current visit: Yes Status: Acute He is tolerating his TPN without difficulty. DVT Prophylaxis: SCD's, SQ Heparin Resuscitation Status: Full Code - Course Hospital Course: Les Lynch MD: 01/30/18 11:38 Patient has easy fatigability but cooperates with therapy. Continues to require moderate assistance for transfers. He remains afebrile. Please see above discussion regarding his wounds. 01/31/18 12:37 Progressing with therapy. Cooperative but easy fatigability. Continues to require close monitoring regarding his nutritional status with TPN etc. 02/02/18 11:01 Patient is improving with therapy. He is stronger. Remains on limited intake in view of dysphagia. 02/03/18 13:56 Patient continues to improve with regard to functional activities. He is able to ambulate well. Drainage appears to be minimal from the tubes. Remains on modified diet in view of dysphagia and bile leak. 02/06/18 10:32 Progressing with therapy. Remains on modified diet. Easy fatigability. - Interventions to Obtain Goals PT Treatment Plan: Balance/Proprioception, Functional Activities, Gait Training , Patient/Family Education, Therapeutic Exercise OT Treatment Plan: ADL (Basic Care), Balance Training, IADL, Pt./Family Education, Ther. Exercise for ADL Goals Progress/Modifications: I discussed the patient's dismissal date etc. with the hospitalist service as well as with case management. We will confirm with [facility] that they will accept him tomorrow evening on skilled care. Discussed sequence with the hospitalist service. He is tolerating the TPN adequately. He would like to eat more. From a medical standpoint he appears to be stable at present. His chest is clear and his heart exam is unremarkable.
[2018-02-06] MEDS: FAT EMULSION 20% 250 ML IV SCH (16:18)
[2018-02-06] MEDS ORDERED: MULTI TRACE ELEMENTS IV SCH (23:30)
[2018-02-06] MEDS ORDERED: MULTI VIT INFUSION IV SCH (23:30)
[2018-02-06] MEDS ORDERED: SODIUM ACETATE IV SCH (23:30)
[2018-02-06] MEDS ORDERED: [UNRECOGNIZED DRUG - OTHER] IV SCH (23:30)
[2018-02-07] MEDS: MULTI TRACE ELEMENTS IV SCH (00:06)
[2018-02-07] MEDS: [UNRECOGNIZED DRUG - OTHER] IV SCH (00:06)
[2018-02-07] MEDS: MULTI VIT INFUSION IV SCH (00:06)
[2018-02-07] MEDS: SODIUM ACETATE IV SCH (00:06)
[2018-02-07] MEDS: SALINE FLUSH 10ml SYRINGE IV SCH ×2 (00:07→08:16)
[2018-02-07] MEDS: HEPARIN SUB-Q 5,000units/0.5ml INJECTION SQ SCH ×2 (00:08→08:17)
[2018-02-07] MEDS: LEVOTHYROXINE 50 MCG TABLET PO SCH (06:12)
[2018-02-07 07:47] VITALS: BP 144/77; PULSE 99; RESP 20; TEMP 97.8; O2SAT 92
[2018-02-07] MEDS: ATENOLOL 25 MG TABLET PO SCH (08:16)
[2018-02-07] MEDS: PANTOPRAZOLE 40 MG INJECTION IV SCH (08:17)
--- NOTE | 2018-02-07 10:17 | IRU Progress Note ---
- Subjective/Serverity of Illness Date: 02/07/18 Mr. Parkinson states that he is doing well from his perspective. He is somewhat worn out after his therapy session this morning. He denies any chest pain however. He is tolerating therapy well. He denies any abdominal pain. He denies any nausea or vomiting. Exam Vital Signs: Temperature 97.8 F 02/07/18 07:43 Pulse Rate 99 02/07/18 07:43 Respiratory Rate 20 02/07/18 07:43 Blood Pressure 144/77 H 02/07/18 07:43 Pulse Oximetry 92 02/07/18 07:43 Height/Weight/BMI: Height 1.75 m Weight 72.1 kg Body Mass Index 24.5 - Constitutional Present: no acute distress, well nourished, well developed, cooperative - Routine HEENT Exam Eye: Present: EOMI ENT: Present: mucous membranes moist, dentition normal - Routine Respiratory Exam Present: CTA bilaterally. Absent: wheezes - Routine Cardiovascular Exam Present: RRR, S1, S2. Absent: murmur - Routine Abdominal Exam Present: soft, normoactive bowel sounds, non distended. Absent: tenderness Comments: His abdomen remains benign. No drainage from the tubes has been identified for several days. - Routine Extremities Exam Present: normal capillary refill - Routine Skin Exam Present: dry, warm - Routine Neurological Exam Present: alert, oriented X3, CN II-XII intact - Routine Psychiatric Exam Present: normal affect IRU A/P (1) Myopathy Current visit: Yes Status: Resolved Patient's critical illness myopathy has substantially resolved. (2) Debility Current visit: Yes Status: Acute (3) Bile leak, postoperative Current visit: Yes Status: Acute (4) Dysphagia, oropharyngeal phase Current visit: Yes Status: Acute (5) Protein-calorie malnutrition, moderate Current visit: Yes Status: Acute DVT Prophylaxis: SCD's, SQ Heparin Resuscitation Status: Full Code - Course Hospital Course: Les Lynch MD: 01/30/18 11:38 Patient has easy fatigability but cooperates with therapy. Continues to require moderate assistance for transfers. He remains afebrile. Please see above discussion regarding his wounds. 01/31/18 12:37 Progressing with therapy. Cooperative but easy fatigability. Continues to require close monitoring regarding his nutritional status with TPN etc. 02/02/18 11:01 Patient is improving with therapy. He is stronger. Remains on limited intake in view of dysphagia. 02/03/18 13:56 Patient continues to improve with regard to functional activities. He is able to ambulate well. Drainage appears to be minimal from the tubes. Remains on modified diet in view of dysphagia and bile leak. 02/06/18 10:32 Progressing with therapy. Remains on modified diet. Easy fatigability. 02/07/18 10:19 Anticipate transfer to [facility] later today. TPN will be discontinued. - Interventions to Obtain Goals PT Treatment Plan: Balance/Proprioception, Functional Activities, Gait Training , Patient/Family Education, Therapeutic Exercise OT Treatment Plan: ADL (Basic Care), Balance Training, IADL, Pt./Family Education, Ther. Exercise for ADL
--- NOTE | 2018-02-07 10:31 | Extended Care Facility Orders ---
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 Admitting Physician: Les Lynch MD Attending Physician: Les Lynch MD Code Status: Full Code Anticiapted Length of Stay: 30 days or less Rehab Potential: good Rehab Prognosis: good Diet: 01/27/18 Dinner Clear Liquid Diet [DIET] Fluid Consistency: SYRNEC Comment: may have ice chips NPO after midnight tonight: 02/07/18 Wound/Incision Care: Keep abd wounds clean and dry May use Facility Protocol or Standing Orders: Yes May have flu vaccine: Yes Evaluations/Treatment: PT, OT Long Term Certification: I certify that SNF services are required to be given on an inpatient basis because of the patient's need for nursing home care on a continuing basis for the condition(s) for which he/she received inpatient hospital services prior to his/her transfer to the SNF. SNF inpatient care is necessary for the following reasons: generalized debilitation related to recent cholecystitis and open cholecystectomy Indication for Long Term: Wound Care/Assessment - Additional Information In Event of Arrest: Start CPR,call 911,send patient to the ER Resident is Aware of Diagnosis: Yes Referrals: Radha Velazquez [Physician] - (Dr. Carmelina Velazquez on 02/08/18 at 1:00 pm for Post-Op follow-up. Check-in at 12:30 pm. [facility] [address] [place] [id number]) Justus Hatfield MD [Primary Care Provider] - (Dr. Olivia Hatfield on 02/17/18 at 3:00 pm for Hosp. follow-up. )
--- NOTE | 2018-02-07 13:52 | Pharmacy Consult-TPN/PPN ---
Pharmacy Consult-TPN/PPN - Laboratory Information Chemistry Turbidity < 20 (0-20) 02/06/18 04:25 Sodium 133 MEQ/L (136-146) L 02/06/18 04:25 Potassium 4.3 MEQ/L (3.6-5) 02/06/18 04:25 Chloride 102 MEQ/L (98-107) 02/06/18 04:25 Carbon Dioxide 24 MEQ/L (22-30) 02/06/18 04:25 Anion Gap 7 meq/L (5-15) 02/06/18 04:25 BUN 20.0 MG/DL (9-20) 02/06/18 04:25 Creatinine 0.7 mg/dL (0.8-1.5) L 02/06/18 04:25 Estimated Creat Clear 53 mL/min (>50) 02/06/18 04:25 GFR Calculation 107 mL/min (>60) 02/06/18 04:25 BUN/Creatinine Ratio 29 RATIO (6-26) H 02/06/18 04:25 Glucose 111 MG/DL (75-110) H 02/06/18 04:25 Glucometer 127 mg/dL (65-110) 02/07/18 09:20 Calculated Osmolality 260 MOSM/KG (261-280) L 02/06/18 04:25 Calcium 8.1 MG/DL (8.4-10.2) L 02/06/18 04:25 Phosphorus 3.3 MG/DL (2.5-4.5) 01/30/18 05:39 Magnesium 1.9 MG/DL (1.6-2.3) 02/06/18 04:25 Total Bilirubin 0.70 MG/DL (0.20-1.30) 02/06/18 04:25 Icterus Index < 2 (0-7) 02/06/18 04:25 AST 25 U/L (17-59) 02/06/18 04:25 ALT 17 U/L (1-50) 02/06/18 04:25 Alkaline Phosphatase 182 U/L (38-126) H 02/06/18 04:25 Total Protein 5.6 g/dL (6.3-8.2) L 02/06/18 04:25 Albumin 2.7 g/dL (3.5-5.0) L 02/06/18 04:25 Globulin 2.9 G/DL (2.4-3.6) 02/06/18 04:25 Albumin/Globulin Ratio 0.9 RATIO (1.1-2.2) L 02/06/18 04:25 Specimen Hemolysis < 15 (0-25) 02/06/18 04:25 Intake and Output 02/06/18 02/07/18 02/08/18 06:59 06:59 06:59 Intake Total 2718 / 2718 3231.333 / 3231.333 416 / 416 Balance 2718 / 2718 3231.333 / 3231.333 416 / 416 Weight 73.1 kg 72.1 kg Intake: IV 2238 / 2238 2151.333 / 2151.333 Fat Emulsion 20% 250 ml @ 50 250 / 250 250 / 250 mls/hr IV 1600 [facility] Rx#: [id number] Multi-Vit Infusion 10 ml Multi 1987 / 1987 1901.333 / 1901.333 -Trace Elements 1 ml Sodium Acetate 40 meq In TPN - Standard Formula 2,000 ml @ 80 mls/hr IV .Q24H [facility] Rx#: [id number] Oral 480 / 480 1080 / 1080 416 / 416 Other: Urine Appearance Clear Clear Urine Color Yellow Yellow Pale Urine Odor Normal Normal Stool Color Brown Brown Stool Consistency Soft Soft Size of Bowel Movement Smear Moderate # Voids 1 1 1 # Incontinent Voids 0 # Bowel Movements 1 1 # Incontinent Bowel Movements 1 - Consult Information TPN: On 02/06/18 TPN formula was changed to standard formula TPN with additional Sodium Acetate 60 MEQ. This was an increase of Sodium Acetate 20 meq/bag from previous TPN formula. Lipid 20% 250 ml IV ordered every day with TPN. Current TPN formula as follows: amino acids 10% 1000 ml (5% total concentration) Dextrose 40% 1000 ml (20% total concentration) Sodium 130 mEq Potassium 60 mEq Magnesium 10 mEq Calcium 9 mEq Acetate 220 mEq Chloride 78 mEq Phosphate 30 mmol MVI 10 ml trace 1 ml Thank you, [facility]
--- NOTE | 2018-02-07 14:10 | Discharge Summary ---
Discharge Information Date of admission: 01/27/18 15:15 Anticipated date of discharge: 02/07/18 Attending Physician: Les Lynch MD Primary care physician: Justus Hatfield MD Consults: 01/27/18 15:42 Physician Consult [CONS] Routine Consulting Provider: Stanley Shaw Reason For Exam: medical management Ordering Provider has Notified Billing Representative: No 02/02/18 14:51 Doctor [Physician Consult] [CONS] Routine Consulting Provider: Hillary Marroquin Reason For Exam: CONT CARE Ordering Provider has Notified Billing Representative: Yes - Discharge Diagnosis (1) Myopathy Status: Resolved (2) Debility Status: Acute (3) Bile leak, postoperative Status: Acute (4) Dysphagia, oropharyngeal phase Status: Acute (5) Protein-calorie malnutrition, moderate Status: Acute 1. Critical illness myopathy 2. Generalized debility 3. Bile leak, postoperative 4. Oropharyngeal dysphagia 5. Moderate protein calorie malnutrition - Laboratory Labs: 02/06/18 04:25 02/06/18 04:25 History of Present Illness HPI: Mr. Parkinson is a very pleasant 87-year-old male with recent history of acute cholecystitis. He had presented to the emergency department at [facility] on January 12 and again on January 13. The second time he had a fever and was admitted to the hospital. His liver enzymes increased and CT scan demonstrated severe gallbladder distention with gallbladder edema and prominence of extrahepatic common duct raising suspicion for acute cholecystitis with possible common duct stone. The patient was seen by Dr. Shi who recommended transfer to a higher level of care because of need for possible ERCP. He was admitted to [facility] on 01/14/2018 and was seen by Radha Velazquez M.D. He was taken to surgery and found to have acute on chronic cholecystitis with hydrops of the gallbladder. Open cholecystectomy was done. Iatrogenic common bile duct injury did occur and cholangiogram revealed no evidence of stones. A biliary drain was placed on 01/25/2018. The patient underwent a modified barium swallow indicating the patient should be on nectar thickened clear liquids. TPN was started. He was transferred to [facility] acute inpatient rehabilitation on 01/27/2018 for a multidisciplinary approach to his recovery. He had evidence of proximal muscle weakness and evidence of critical illness myopathy. Hospital Course This is a general summary of the patient's hospital course. For more details refer to the complete medical record. The patient was admitted to acute inpatient rehabilitation on 01/27/2018 because of the critical illness myopathy and multiple functional deficits. He was followed by the hospitalist service as well as by Dr. Lynch. He remained afebrile. Blood pressures were in general controlled. He does have history of atrial fibrillation but is not currently on an anticoagulant. Neurologically he remained stable and denied any abdominal pain or nausea or vomiting. Throughout the hospitalization he remained on nectar thickened clear liquids. Initially there was about 300 ML of drainage from the right lateral abdominal drain on 01/30/2018. Subsequently there was minimal if any drainage out of either tube. Initial hemoglobin was 8.7 and final hemoglobin was 8.9. Initial white blood cell count was 11,200 and final white blood cell count was 6600 on 02/06/2018. Blood sugars were monitored and remained controlled. Magnesium was 1.9. Electrolytes were monitored. Sodium was slightly low at 133 but potassium was normal at 4.3. Liver enzymes on 02/06/2018 demonstrated an alkaline phosphatase slightly elevated at 192. Total protein 5.6 albumin 2.7. The patient was seen by physical therapy and occupational therapy. He was very cooperative. He did have easy fatigability but otherwise tolerated therapy well. His critical illness myopathy improved significantly during the hospitalization. The following levels of functional competence are to be considered preliminary information. The reader is encouraged to refer to actual therapy notes and reports for specific details. The patient was followed by physical therapy while on acute inpatient rehabilitation. At the conclusion of his stay, the following functional competencies were identified: He was modified independent for transfers he was able to ambulate up to 490 feet with standby assist of 1 person with a front- wheeled walker. He was able to climb 12 steps with standby assistance. The patient was followed by occupational therapy while on acute inpatient rehabilitation. At the conclusion of his stay, the following functional competencies were identified: He is modified independent for bathing and upper body dressing and standby assist for lower body dressing. He remained on TPN throughout his hospitalization on inpatient rehabilitation and tolerated it well. He was monitored by the dietitian as well as the pharmacy in this regard. TPN was discontinued late in the afternoon of 2017 in anticipation of his transfer to [facility]. He is scheduled to undergo T-tube cholangiogram or equivalent on 02/08/2018 in [place] at 8 AM. He will then see Dr. Radha Velazquez at 1 PM for an assessment as to whether he can advance his diet or not. If he requires continued TPN that has been arranged [facility] skilled [facility]. If not he will be able to advance his diet and he will continue snf and PT and OT at [facility]. 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 Lynch for above. Will continue on TPN for nutrition- nectar thickened liquids only. He is to remain on TPN for 2 weeks until reevaluation and further imaging by surgeon. Will monitor electrolytes often. Dr. Velazquez's does not feel that continued daily flushing of drains needed. Consultation speech therapy given dysphasia. Cefazolin and for antimicrobial coverage - can be discontinued in 24 hours. Senna plus for bowel motivation. Monitor blood pressures, continue on atenolol. Continue on fluconazole IV for treatment of thrush. Subcutaneous heparin for DVT prophylaxis. Patient and are discussing code status. At this time they would like Full code. Appreciate consultation, the Hospitalist services will continue to follow patient and medically managed during his stay on the IRU unit. Will discuss further orders and plan of care with attending, Dr. Shaw. At time of discharge medical care will return to primary care provider, Dr Hatfield. Plan - 01/28/18 Patient reports therapy is going well and is tired from increased activity. No other complaints. Continues with TPN for nutrition as well as clear liquid diet only with nectar thickened liquids. He is to remain on TPN and clear liquids for 2 weeks until reevaluation and further imaging by surgeon, Dr. Vang. Electrolytes and renal function stable. Will continue to monitor closely. Blood sugar stable. Biliary drain has put out >500cc green/brown discharge since admission as well as saturating the dressing which was changed today. Abdominal drain with scant discharge. Continue to monitor discharge closely. No need to flush drains daily. Cefazolin treatment to be completed today. Continue fluconazole 200mg IV daily for treatment of thrush through 02/04/18. Leukocytosis (WBC 11.2) noted today. WBC on 01/27/18 was 13.8 per medical records. Will continue to monitor closely. Patient is afebrile. CXR on 01/27/18 revealed mild CHF/fluid overload. Weight is up ~3-4 kgs since initial evaluation on 01/14/18. Will give Lasix 20 mg po now and monitor daily weight closely. Nursing reported hypoxia with exertion with saturation in the 70's during activities. No history of oxygen use at home but did require oxygen while previously hospitalized. Oxygen as needed to maintain SAO2 >90%, weaning as able. Subcutaneous heparin for DVT prophylaxis. Recheck labs in AM to monitor blood counts, electrolytes and renal function. Plan - 01/30/18 Continues with TPN for nutrition as well as clear liquid diet only with nectar thickened liquids. He is to remain on TPN and clear liquids for 2 weeks until reevaluation and further imaging by surgeon, Dr. Vang. Continue fluconazole 200mg IV daily for treatment of thrush through 02/04/18. Leukocytosis improved. White count 10.2. Hemoglobin stable at 8.7 Need to follow electrolytes and glucose carefully while on TPN Oxygen as needed to maintain SAO2 >90%, weaning as able. Subcutaneous heparin for DVT prophylaxis. 02/02/18 Continue on TPN for nutrition. Hgb improved up to 9.3 today Sodium improved Continue to encourage strengthening with PT/OT Overall doing good Time spent with patient: greater than 35 minutes Resuscitation Status: Full Code Discharge Plan - Med Rec/Dispo Referrals/Follow Up: Radha Velazquez [Physician] - (Dr. Carmelina Velazquez on 02/08/18 at 1:00 pm for Post-Op follow-up. Check-in at 12:30 pm. [facility] [address] [place] [address]) Justus Hatfield MD [Primary Care Provider] - (Dr. Olivia Hatfield on 02/17/18 at 3:00 pm for Hosp. follow-up. ) Prescriptions: New Insulin Aspart [NovoLOG] 1 - 5 unit SQ SS PRN vial PRN Reason: Hyperglycemia Pantoprazole Tab [Protonix Tab] 1 tab PO ACB #15 tab Continue Levothyroxine Sodium 50 mcg PO ACB Senna + Docusate [Senna Plus Tablet] 1 each PO BID PRN PRN Reason: Constipation Ondansetron HCl [Zofran] 4 mg PO Q4HR PRN PRN Reason: Nausea Acetaminophen 2 tab PO Q4HR PRN PRN Reason: Pain Acetaminophen Supp [Tylenol] 650 mg MI Q4HR PRN PRN Reason: Pain Atenolol [Tenormin] 12.5 mg PO DAILY Discontinued Heparin Sodium,Porcine [Heparin Sodium] 5,000 unit IJ Q8HR Pantoprazole IV [Protonix IV] 40 mg IV DAILY - Disposition 03 To SNU Not [facility] (SNF) - Dismissal Complete Discharge Instructions are:: Complete
--- NOTE | 2018-02-07 14:20 | Letter to Referring Physician ---
Dear Dr. Hatfield, This is a brief note to bring you up-to-date on the status of Gorge Parkinson and his stay on the acute inpatient rehabilitation unit at [facility]. As you are likely aware, this patient was admitted to [facility] on 01/14/2018 for acute on chronic cholecystitis with hydrops of the gallbladder. He was taken to surgery by Dr. Radha Velazquez. Postoperatively he was noted to have dysphagia and was placed on nectar thickened clear liquids. Due to the friable nature of the gallbladder, bile duct leakage occurred and the patient was maintained on TPN. The patient was stabilized while on the acute level and admitted to inpatient rehabilitation unit at [facility] on January 27, 2018. While on inpatient rehabilitation, this patient was seen by occupational therapy and physical therapy and improved overall in their functional ability. He remained on TPN as well as nectar thickened clear liquids throughout his stay on inpatient rehabilitation. He did well with therapy. He is dismissed on 02/07/2018 to [facility] for continued skilled care. A radiographic study similar to ET tube she cholangiogram will be performed tomorrow in [place] and he will see Dr. Velazquez at 1 PM on 02/08/2018 for a decision with regard to continuing the TPN or not. I will follow through with [facility] with regard to that issue. I did contact your office today to advise of the current plans. Please see a copy of the history and physical examination as well as discharge summary faxed separately for further details. Therefore, the current plan is that he will be at [facility] care either with or without TPN beginning later this evening. Thank you for allowing us to be involved in this nice patient's care. Please contact me directly should you have any questions regarding their stay on the inpatient rehabilitation unit. Sincerely, Les Lynch M.D.
--- NOTE | 2018-02-07 17:16 | Progress Note ---
- Date 02/07/18 Subjective: Patient seen this morning after his shower. He reports he is feeling well. No complaints of abdominal pain, chest pain, shortness of breath, nausea or vomiting. He is doing well with taking liquids by mouth. He continues on TPN. [facility]. Objective Vital signs: Temperature 97.8 F 02/07/18 07:43 Pulse Rate 99 02/07/18 07:43 Respiratory Rate 20 02/07/18 07:43 Blood Pressure 144/77 H 02/07/18 07:43 Pulse Oximetry 92 02/07/18 07:43 Height/Weight/BMI: Height 1.75 m Weight 72.1 kg Body Mass Index 24.5 - Constitutional Present: no acute distress, well nourished, well developed - Routine HEENT Exam Head: Present: normocephalic, atraumatic - Routine Respiratory Exam Present: CTA bilaterally. 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 Joey Vang. Hyponatremia Dysphagia Atrial fibrillation Coronary artery disease Hyperlipidemia Plan [facility]. TPN will be discontinued upon dismissal as he will be having follow-up with his surgeon tomorrow in [place] and she will determine whether or not patient should continue on TPN based on testing to be performed. Dr. Lynch has been in contact with patient's surgeon and with Hillary Marroquin regarding his TPN and follow-up. DVT Prophylaxis: SCD's, SQ Heparin GI Prophylaxis: Protonix Resuscitation Status: Full Code - Physician Narrative Narrative: Date: 02/07/18 Time: 1712 Hospital Course Summary Disclaimer: The visit summary below is not to be considered part of the above Progress Note. 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 Lynch for above. Will continue on TPN for nutrition- nectar thickened liquids only. He is to remain on TPN for 2 weeks until reevaluation and further imaging by surgeon. Will monitor electrolytes often. Dr. Velazquez's does not feel that continued daily flushing of drains needed. Consultation speech therapy given dysphasia. Cefazolin and for antimicrobial coverage - can be discontinued in 24 hours. Senna plus for bowel motivation. Monitor blood pressures, continue on atenolol. Continue on fluconazole IV for treatment of thrush. Subcutaneous heparin for DVT prophylaxis. Patient and are discussing code status. At this time they would like Full code. Appreciate consultation, the Hospitalist services will continue to follow patient and medically managed during his stay on the IRU unit. Will discuss further orders and plan of care with attending, Dr. Shaw. At time of discharge medical care will return to primary care provider, Dr Hatfield. Plan - 01/28/18 Patient reports therapy is going well and is tired from increased activity. No other complaints. Continues with TPN for nutrition as well as clear liquid diet only with nectar thickened liquids. He is to remain on TPN and clear liquids for 2 weeks until reevaluation and further imaging by surgeon, Dr. Vang. Electrolytes and renal function stable. Will continue to monitor closely. Blood sugar stable. Biliary drain has put out >500cc green/brown discharge since admission as well as saturating the dressing which was changed today. Abdominal drain with scant discharge. Continue to monitor discharge closely. No need to flush drains daily. Cefazolin treatment to be completed today. Continue fluconazole 200mg IV daily for treatment of thrush through 02/04/18. Leukocytosis (WBC 11.2) noted today. WBC on 01/27/18 was 13.8 per medical records. Will continue to monitor closely. Patient is afebrile. CXR on 01/27/18 revealed mild CHF/fluid overload. Weight is up ~3-4 kgs since initial evaluation on 01/14/18. Will give Lasix 20 mg po now and monitor daily weight closely. Nursing reported hypoxia with exertion with saturation in the 70's during activities. No history of oxygen use at home but did require oxygen while previously hospitalized. Oxygen as needed to maintain SAO2 >90%, weaning as able. Subcutaneous heparin for DVT prophylaxis. Recheck labs in AM to monitor blood counts, electrolytes and renal function. Plan - 01/30/18 Continues with TPN for nutrition as well as clear liquid diet only with nectar thickened liquids. He is to remain on TPN and clear liquids for 2 weeks until reevaluation and further imaging by surgeon, Dr. Vang. Continue fluconazole 200mg IV daily for treatment of thrush through 02/04/18. Leukocytosis improved. White count 10.2. Hemoglobin stable at 8.7 Need to follow electrolytes and glucose carefully while on TPN Oxygen as needed to maintain SAO2 >90%, weaning as able. Subcutaneous heparin for DVT prophylaxis. 02/02/18 Continue on TPN for nutrition. Hgb improved up to 9.3 today Sodium improved Continue to encourage strengthening with PT/OT Overall doing good
== END 2018-02-07 17:00 | DRG 92 ==
PROVIDERS: ADMIT Internal Medicine; ATTEND Internal Medicine